=== PATIENT | female | born 1940 | race Caucasian/White ===

== ENCOUNTER 2023-02-09 11:50 | Outpatient (OUT) | payer MEDICARE, OTHER, SELFPAY ==
--- NOTE | 2023-02-09 12:01 | US_ITS ---
The [place] [id number] Patient Name: ADELA PARDO MRN: [id number] date: 1940 Sex: F Assigned Patient Location: LAB Current Patient Location: LAB Accession/Order Number: [id number] Exam Date: 02/09/2023 12:05 Report Date: 02/09/2023 15:36 At the request of: MARCK AMBROCIO Procedure: US venous doppler LE LT EXAMINATION: US venous doppler LE LT HISTORY: Hypertension I10 , left leg swelling, left foot pain COMPARISON: No relevant comparison available. FINDINGS: REGION: Left lower extremity THROMBI: None. COMPRESSIBILITY: Normal compressibility. FLOW: Normal waveform and antegrade flow between 5 and 20 cm/s. OTHER: Atherosclerotic plaque noted within common femoral artery. US/US venous doppler LE LT IMPRESSION: 1. No deep vein thrombus within the left lower extremity. Electronically authenticated by: KAYY KAUR Date: 02/09/2023 15:36
--- NOTE | 2023-02-09 12:01 | XR_ITS ---
The [address] [address] Patient Name: ADELA PARDO MRN: [id number] date: 1940 Sex: F Assigned Patient Location: LAB Current Patient Location: LAB Accession/Order Number: [id number] Exam Date: 02/09/2023 12:30 Report Date: 02/09/2023 13:45 At the request of: MARCK AMBROCIO Procedure: XR foot LT min 3V PROCEDURE: XR foot LT min 3V HISTORY: Hypertension I10 ; lateral left foot pain for 3 weeks; no known injury COMPARISON: None. FINDINGS: BONES:Oblique fracture through mid diaphysis of fourth proximal phalanx with mild sclerosis suggesting early bone healing. No significant dislocation or malalignment. SOFT TISSUES:No visible soft tissue swelling. EFFUSION:None visible. OTHER: Negative. XR/XR foot LT min 3V IMPRESSION: 1. Subacute fracture of fourth proximal phalanx which remains in near normal alignment. Acute injury is felt less likely. Electronically authenticated by: KAYY KAUR Date: 02/09/2023 13:45
== END 2023-02-09 11:51 | disposition home or self-care (01) ==
LOC: LAB 11:52
PROVIDERS: PCP Family Medicine; Visit Provider Family Medicine
DX: R60.0 Localized edema (principal); M79.673 Pain in unspecified foot
CPT/HCPCS: 73630; 93971

== ENCOUNTER 2023-02-17 08:55 | Outpatient (OUT) | payer MEDICARE, OTHER, SELFPAY ==
--- NOTE | 2023-02-17 09:01 | MM_ITS ---
Patient: ADELA PARDO Exam Date: 02/17/2023 : 1940 Gender:F Ordering : DR Kwame Tate . Admission #: [id number] Family : Order #: [id number] CLICK HERE TO VIEW EXAM RADIOLOGY REPORT PROCEDURE: MM TOMOSYNTHESIS SCREENING BI COMPARISON: MG MAMM SCREEN 3D AWAIS CAD, 02/16/2022. MG MAMM SCREEN 3D AWAIS CAD, 02/12/2021. MG MAMM SCREEN AWAIS W CAD, 12/20/2017. MG MAMM SCREEN AWAIS W CAD, 08/19/2016. INDICATIONS: Screening Calculator Name NCI Breast Cancer Risk Assessment Tool 5 Year Breast Cancer Risk 1.30% Lifetime Breast Cancer Risk 1.80% Personal Breast Cancer No Personal Ovarian Cancer No Treatments None Family Cancers Aunt-paternal with breast cancer at age 45; Cousin-paternal with breast cancer at age 36; Cousin-paternal with breast cancer at age 42; Cousin-paternal with breast cancer at age 38; Uncle-maternal with prostate cancer at age ~70; Uncle-paternal with prostate cancer at age ~70. LOCATION: [facility] BREAST COMPOSITION: Heterogeneously dense,which may obscure small masses. FINDINGS: DIAGNOSTIC CATEGORY 2--BENIGN FINDING: RIGHT BREAST: No significant suspicious finding. Scattered benign-appearing calcifications are present. No significant change has occurred. Stable biopsy marker clip. LEFT BREAST: No significant suspicious finding. Scattered benign-appearing calcifications are present. No significant change has occurred. RECOMMENDATIONS: ROUTINE MAMMOGRAM AND CLINICAL EVALUATION IN 12 MONTHS. PLEASE NOTE: A NORMAL MAMMOGRAM DOES NOT EXCLUDE THE POSSIBILITY OF BREAST CANCER. A CLINICALLY SUSPICIOUS PALPABLE LUMP SHOULD BE BIOPSIED. Dictated by: Garcia Peres M.D. on 02/18/2023 at 10:04 Approved by: Garcia Peres M.D. on 02/18/2023 at 10:10
== END 2023-02-17 08:56 | disposition home or self-care (01) ==
LOC: MAMMO 08:55
PROVIDERS: PCP Family Medicine; Visit Provider Family Medicine
DX: Z12.31 Encounter for screening mammogram for malignant neoplasm of breast (principal); Z80.3 Family history of malignant neoplasm of breast; Z80.42 Family history of malignant neoplasm of prostate
CPT/HCPCS: 77063; 77067

== ENCOUNTER 2023-03-25 14:26 | Outpatient (OUT) | payer MEDICARE, OTHER, SELFPAY ==
--- NOTE | 2023-03-25 14:36 | CT_ITS ---
The [address] [address] Patient Name: ADELA PARDO MRN: [id number] date: 1940 Sex: F Assigned Patient Location: LAB Current Patient Location: Accession/Order Number: [id number] Exam Date: 03/25/2023 14:55 Report Date: 03/27/2023 08:49 At the request of: NON-STAFF PHYSICIAN Procedure: CT angio abd aorta runoff CT angio abd aorta runoff, 03/25/2023 2:55 PM EDT INDICATION: Aneurysm Of Unspecified Site I72.9 COMPARISON: There is no appropriate prior study for comparison. Technique: Axial images of 2 millimeters are obtained from the hepatic dome to feet with IV injection with MIP sagittal and coronal reconstructions. 3-D images were obtained with MIP reconstructions. Dose reduction techniques were achieved by using automated exposure control and/or adjustment of mA and/or kV according to patient size and/or use of iterative reconstruction technique. FINDINGS: Lung: The base of lungs are clear. No pleural effusion is noted. Liver and gallbladder: Unremarkable Genitourinary system: Kidneys are unremarkable. There is a hypodense lesion likely a cyst within the left ovary measuring 4 cm. Calcification within the uterus is noted. The adrenal glands, pancreas, and spleen are unremarkable. Aorta: The aorta is aneurysmal with intramural hematoma, occupying approximately 60% of the lumen. The descending aorta measures 5.2 x 5 cm, the proximal abdominal aorta measures 5.6 x 5.1 cm the juxtarenal aorta measures approximately 5.9 x 5.3 cm and the infrarenal abdominal aorta measures 4.4 x 5.4 cm. The aneurysm extends to the aortic bifurcation. The SMA celiac and renal arteries and RASHEL is are patent. There is one renal artery for each kidney. On the right: The common iliac artery measures 8 mm. There is a focal dissection in the distal right external iliac artery with no significant stenosis. The right internal iliac artery is unremarkable. No abnormality of the common and deep femoral artery is noted. There is a large segmental occlusion of the superficial femoral artery from proximal to distal. The right popliteal artery is atherosclerotic but patent. There is two-vessel runoff to ankle through anterior tibialis and peroneal arteries. The posterior tibialis artery is heavily atherosclerotic. On the left: No significant stenosis within the left common, external and internal iliac arteries, common femoral and superficial and deep arteries and popliteal artery is noted. There is three-vessel runoff to the ankle. Lymph node: There is no free fluid or lymph node enlargement by size criteria in the abdomen and pelvis. Bowel: No abnormality of small or large bowel is noted. Bone: There is no suspicious osteolytic or osteoblastic lesion. Lower lumbar spine and SI joint degenerative changes are noted. 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 Two-vessel runoff to the ankle on the right. No significant stenosis on the left side. Large left ovarian cyst. Ultrasound is recommended for further evaluation. Arterial stenosis reference: Mild = <50% stenosis. Moderate = 50-69% stenosis. Severe = >70% stenosis. Electronically authenticated by: ISA SEARS Date: 03/27/2023 08:49
[2023-03-25 14:41] LABS: Estimated GFR (African America >60 (>=60); Estimated GFR (Non-African Ame >60 (>=60)
== END 2023-03-25 14:27 | disposition home or self-care (01) ==
LOC: LAB 14:26
PROVIDERS: PCP Family Medicine
DX: I71.20 Thoracic aortic aneurysm, without rupture, unspecified (principal); I72.9 Aneurysm of unspecified site; N83.202 Unspecified ovarian cyst, left side; I71.40 Abdominal aortic aneurysm, without rupture, unspecified; I70.90 Unspecified atherosclerosis
CPT/HCPCS: 36415; 75635; 82565; Q9967

== ENCOUNTER 2023-03-30 14:10 | Outpatient (OUT) | payer MEDICARE, OTHER, SELFPAY ==
--- NOTE | 2023-03-30 14:13 | US_ITS ---
The [address] [address] Patient Name: ADELA PARDO MRN: [id number] date: 1940 Sex: F Assigned Patient Location: US Current Patient Location: US Accession/Order Number: [id number] Exam Date: 03/30/2023 14:15 Report Date: 03/30/2023 16:00 At the request of: MARCK AMBROCIO Procedure: US pelvis w/ transvaginal EXAMINATION: US pelvis w/ transvaginal HISTORY: Unspecified Ovarian Cyst N83.202 COMPARISON: CTA abdomen with lower extremity runoff 03/25/2023 TECHNIQUE: Transabdominal and/or transvaginal sonographic examination was performed as indicated by examination type. FINDINGS: UTERUS: Heterogeneous with multiple small shadowing hyperechoic structures likely calcifications or calcifying small leiomyomas. Uterus size: 5.2 x 2.6 x 3.3 cm ENDOMETRIUM: Could not be defined. RIGHT OVARY: Not seen. LEFT OVARY: Contains a 5.2 x 4.6 x 4.3 cm thin-walled fluid-filled thin-walled cystic structure. normal resistive index; 0.5. Ovary size: 5.6 x 4.3 x 4.9 cm CUL-DE-SAC: Unremarkable. No significant free fluid. BLADDER: Unremarkable. OTHER: None. US/US pelvis w/ transvaginal IMPRESSION: 1. Large 5.6 cm cyst arising from left ovary; unexpected in a patient of this age, but overall benign-appearing. Consider follow-up ultrasound evaluation in 4 and 6 weeks to evaluate for possible regression. Electronically authenticated by: KAYY KAUR Date: 03/30/2023 16:00
== END 2023-03-30 14:11 | disposition home or self-care (01) ==
LOC: US 14:10
PROVIDERS: PCP Family Medicine; Visit Provider Family Medicine
DX: N83.202 Unspecified ovarian cyst, left side (principal)
CPT/HCPCS: 76830; 76856

== ENCOUNTER 2023-04-20 14:47 | Outpatient (OUT) | payer MEDICARE, OTHER, SELFPAY ==
[2023-04-20 15:50] LABS: Lactate Dehydrogenase 158 U/L (81-234)
[2023-04-21 04:07] LABS: AFP, Serum, Tumor Marker <1.8 ng/mL (0.0-8.7); CEA 4.6 ng/mL (0.0-4.7); Cancer Antigen (CA) 125 16.7 U/mL (0.0-38.1); HCG Tumor Marker <1 mIU/mL (.)
== END 2023-04-20 14:48 | disposition home or self-care (01) ==
LOC: LAB 14:48
PROVIDERS: PCP Family Medicine; Visit Provider Obstetrics & Gynecology
DX: N83.202 Unspecified ovarian cyst, left side (principal)
CPT/HCPCS: 36415; 82105; 82378; 83615; 84702; 86304

== ENCOUNTER 2023-06-01 14:16 | Outpatient (OUT) | payer MEDICARE, OTHER, SELFPAY ==
--- NOTE | 2023-06-01 14:19 | US_ITS ---
[address] [address] Patient Name: ADELA PARDO MRN: [id number] date: 1940 Sex: F Assigned Patient Location: US Current Patient Location: US Accession/Order Number: [id number] Exam Date: 06/01/2023 14:20 Report Date: 06/01/2023 15:13 At the request of: FORREST SALAZAR Procedure: US pelvis w/ transvaginal EXAMINATION: US pelvis w/ transvaginal HISTORY: left ovarian cyst COMPARISON: Ultrasound pelvis 03/30/2023 TECHNIQUE: Transabdominal and/or transvaginal sonographic examination was performed as indicated by examination type. FINDINGS: UTERUS: Heterogeneous and contains multiple calcifications. Uterus size: 6.6 x 2.5 x 4.1 cm. ENDOMETRIUM: Normal homogeneous appearance. Endometrial thickness: 4 mm RIGHT OVARY: Normal size and appearance. Duplex Doppler demonstrates normal waveform and flow; resistive index 0.3. Ovary size: 2.0 x 1.0 x 1.67 m LEFT OVARY: Contains a 5.1 cm anechoic, simple appearing cyst. Duplex Doppler demonstrates normal waveform and flow; resistive index 0.7. Ovary size: 5.8 x 5.5 x 5.0 cm CUL-DE-SAC: Unremarkable. No significant free fluid. BLADDER: Unremarkable. OTHER: None. US/US pelvis w/ transvaginal IMPRESSION: 1. Persistence large left ovarian cyst 5.1 cm. While the cyst is simple and without overtly suspicious characteristics, it is not expected in a patient of this age. Electronically authenticated by: KAYY KAUR Date: 06/01/2023 15:13
--- OUTSIDE RECORDS SUMMARY | 2023-06-01 14:19 | XMS_ITS | CCD ---
Author Name Unknown Address [address] [facility] [address] [place] [address] Organization [facility] Care Team Providers Care Pan Pusher Name Role Phone PHYSICIAN, DEFAULT Unavailable Unavailable PHYSICIAN, DEFAULT Unavailable Unavailable MARCK TATE Unavailable Unavailable HOY ., DR ACHARYA Admitting Unavailable HOY ., DR ACHARYA Attending Unavailable HOY ., DR ACHARYA Primary Care Unavailable HOY ., DR ACHARYA Consulting Unavailable MOUNT OLIVE, DR SANDOVAL Ferguson Consulting Unavailable HOY ., DR ACHARYA Admitting Unavailable HOY ., DR ACHARYA Attending Unavailable HOY ., DR ACHARYA Primary Care Unavailable HOY ., DR ACHARYA Consulting Unavailable ZIEBER, DR KAYY Macias Consulting Unavailable HOY ., DR ACHARYA Admitting Unavailable HOY ., DR ACHARYA Attending Unavailable HOY ., DR ACHARYA Primary Care Unavailable HOY ., DR ACHARYA Consulting Unavailable HOY ., DR ACHARYA Admitting Unavailable HOY ., DR ACHARYA Attending Unavailable HOY ., DR ACHARYA Primary Care Unavailable HOY ., DR ACHARYA Consulting Unavailable HOY ., DR ACHARYA Admitting Unavailable HOY ., DR ACHARYA Attending Unavailable HOY ., DR ACHARYA Primary Care Unavailable HOY ., DR ACHARYA Consulting Unavailable Marck Tate Primary Care Physician Marck Tate MD Unavailable JENA HICKS Referring Unavailable JENA HICKS Attending Unavailable Sha Vallejo Attending Unavaila ble NONE, XXXX Referring Unavailable Jameel, Mohamed FManish Attending Unavailable Jameel, Mohamed FManish Admitting Unavailable Marck Tate Referring Unavailable Sha Vallejo Attending Unavaila ble NONE, XXXX Referring Unavailable Jameel, Mohamed F. Attending Unavailable Jameel, Mohamed F. Admitting Unavailable Jameel, Mohamed F. Referring Unavailable Jameel, Mohamed F. Attending Unavailable Jameel, Mohamed F. Admitting Unavailable NONE, XXXX Referring Unavailable Sha Vallejo Attending Unavaila ble Sha Vallejo Admitting Unavaila ble NONE, XXXX Referring Unavailable FORREST SALAZAR Attending Unavailable FORREST SALAZAR Attending Unavailable Allergies Allergy Classification Reported Allergen(s) Allergy Type Date of Onset Reaction(s) Facility (1 source) No Known Medication Allergies; Translations: [No Known Medication Allergies] Propensity to adverse reactions (disorder) [facility] Repository Medications Current Medications Medication Drug Class(es) Dates Sig (Normalized) Sig (Original) aspirin 81 mg delayed release oral tablet (3 sources) Platelet Aggregation Inhibitor, Nonsteroidal Anti-inflammatory Drug Start: 05-12-2023 aspirin 81 mg Oral EC Tab Refills(s) 0 Start Date: 05/12/23 Status: Ordered take 81 mg by mouth once daily B SUSANNA ASPIRIN ORAL Take 81 mg by mouth once daily. 0 Active Comment on above: Take 81 mg by mouth once daily. cetirizine hydrochloride 10 mg oral tablet (7 sources) Histamine-1 Receptor Antagonist Start: 2022 take 1 tablet by mouth once daily cetirizine 10 mg Tab 10 mg = 1 tab(s), Oral, Daily, # 30 tab(s), Refills(s) 0 Start Date: 09/06/22 Status: Ordered Comment on above: Take 1 tablet by caty th every afternoon. glimepiride 2 mg oral tablet (5 sources) Sulfonylurea Start: 2022 glimepiride 2 mg Tab Refills(s) 0 Start Date: 01/20/23 Status: Ordered Comment on above: Take 2 mg by mouth o nce daily. iv contrast (will be provided with radiology test) (1 source) Start: 2022 End: 2022 inject 1 dose intravenously once iv contrast (will be provided with radiology test) CTA CHEST (NONGATED) ABD/PEL WO/W IVCON - No IV access, insert saline lock prior to the sedation, infusion, injection for imaging exam. Discontinue saline lock post exam. If Pt. has a central line or IVAD, may access for administration according to line specific nursing protocol. Once exam is complete flush line and de-access according to line specific nursing protocol in the CT contrast administration guidelines link. 1 Each 0 04/26/2023 04/27/2023 Active Comment on above: CTA CHEST (NONGATED) ABD/PEL WO/W IVCON - No IV access, insert saline lock prior to the sedation, infusion, injection for imaging exam. Discontinue saline lock post exam. If Pt. has a central line or IVAD, may access for administration according to line specific nursing protocol. Once exam is complete flush line and de-access according to line specific nursing protocol in the CT contrast administration guidelines link. metFORMIN hydrochloride 500 mg oral tablet (5 sources) Biguanide Start: 2022 metformin 500 mg Tab Refills(s) 0 Start Date: 01/20/23 Status: Ordered Comment on above: Take 1 tablet by caty th every 12 hours. Completed/Discontinued Medications Medication Drug Class(es) Dates Sig (Normalized) Sig (Original) amLODIPine 5 mg oral tablet (5 sources) Dihydropyridine Calcium Channel Yessica Start: 03-24-2023 take 1 tablet by mouth once amLODIPine (NORVASC) 5 mg tablet Take 1 tablet by mouth every afternoon. 0 03/24/2023 Active Start: 01-20-2023 amLODIPine 5 m g Tab Refills(s) 0 Start Date: 01/20/23 Status: Ordered Comment on above: Take 1 tablet by caty th every afternoon. ascorbic acid 500 mg chewable tablet (2 sources) Vitamin C take 500 mg by mouth once daily Ascorbic Acid (VITAMIN C) 500 mg chew Take 500 mg by mouth once daily. 0 Active Comment on above: Take 500 mg by mouth once daily. calcium carbonate 500 mg oral tablet (2 sources) take 500 mg by mouth once daily calcium carbonate (CALCIUM 500 ORAL) Take 500 mg by mouth once daily. 0 Active Comment on above: Take 500 mg by mouth once daily. cholecalciferol 0.025 mg oral capsule (2 sources) Vitamin D Cholecalciferol, Vitamin D3, (VITAMIN D) 25 mcg (1,000 unit) cap Take 1,000 Units by mouth once daily. 0 Active Comment on above: Take 1,000 Units by mouth once daily. ezetimibe 10 mg oral tablet (2 sources) Dietary Cholesterol Absorption Inhibitor Start: 04-10-20 take 1 tablet by mouth once ezetimibe (ZETIA) 10 mg tablet Take 1 tablet by mouth every afternoon. 0 04/10/2023 Active Comment on above: Take 1 tablet by caty th every afternoon. 60 actuat fluticasone propionate 0.1 mg/actuat / salmeterol 0.05 mg/actuat dry powder inhaler (5 sources) Corticosteroid, beta2-Adrenergic Agonist Start: 04-06-20 take 1 puff(s) by inhalation twice daily WIXELA INHUB 100-50 mcg/dose inhaler Inhale 1 Puff as instructed two times a day. 0 04/06/2023 Active Start: 01-20-2023 Wixela Inhub 1 00 mcg-50 mcg inhalation powder Refill(s) 0 Start Date: 01/20/23 Status: Ordered Comment on above: Inhale 1 Puff as ins tructed two times a day. lisinopril 40 mg oral tablet (7 sources) Angiotensin Converting Enzyme Inhibitor Start: 03-17-2023 take 1 tablet by mouth once lisinopril (ZESTRIL) 40 mg tablet Take 1 tablet by mouth every afternoon. 0 03/17/2023 Active Start: 09-06-2022 take 1 tablet by caty th once daily lisinopril 10 mg Tab 10 mg = 1 tab(s), Oral, Daily, # 30 tab(s), Refills(s) 0 Start Date: 09/06/22 Status: Ordered Comment on above: Take 1 tablet by caty th every afternoon. melatonin 10 mg oral tablet (2 sources) take 1 tablet by mouth once daily at bedtime melatonin 10 mg tab Take 10 mg by mouth daily at bedtime. 0 Active Comment on above: Take 10 mg by mouth daily at bedtime. multivitamin (DAILY MULTI-VITAMIN) tablet (2 sources) take 1 tablet by mouth once daily multivitamin (DAILY MULTI-VITAMIN) tablet Take 1 tablet by mouth once daily. 0 Active Comment on above: Take 1 tablet by caty th once daily. omeprazole 20 mg delayed release oral capsule (5 sources) Proton Pump Inhibitor Start: 01-21-20 take 1 capsule by mouth once daily omeprazole (PRILOSEC) 20 mg capsule Take 20 mg by mouth once daily. 0 04/28/2023 Active Comment on above: Take 20 mg by mouth once daily. pramipexole dihydrochloride 1 mg oral tablet (2 sources) Nonergot Dopamine Agonist Start: 11-13-20 23 take 1 tablet by mouth once pramipexole (MIRAPEX) 1 mg tablet Take 1 tablet by mouth every afternoon. 0 04/04/2023 Active Comment on above: Take 1 tablet by caty th every afternoon. Problems Active Problems Problem Classification Problem Date Documented Da te Episodic/Chronic Aortic; peripheral; and visceral artery aneurysms (4 sources) Thoracic aortic aneurysm without rupture; Translations: [Thoracic aortic aneurysm, without rupture, unspecified] Onset: 09-06-2022 Chronic Chronic obstructive pulmonary disease and bronchiectasis (5 sources) Chronic obstructive pulmonary disease, unspecified; Translations: [COPD UNSPECIFIED] Onset: 07-18-2022 Chronic Congestive heart failure; nonhypertensive (1 source) Unspecified diastolic (congestive) heart failure; Translations: [UNSPECIFIED DIASTOLIC HEART FAILURE] Onset: 07-18-2022 Chronic Coronary atherosclerosis and other heart disease (1 source) Atherosclerotic heart disease of [place] coronary artery without angina pectoris; Translations: [ASHD [place] W/O ANGINA PECTORIS] Onset: 07-18-2022 Chronic Diabetes mellitus with complications (4 sources) Type 2 diabetes mellitus with hyperglycemia; Translations: [TYPE 2 DM W/HYPERGLYCEMIA] Onset: 07-14-2022 Chronic Disorders of lipid metabolism (1 source) Hyperlipidemia, unspecified; Translations: [HYPERLIPIDEMIA UNSPECIFIED] Onset: 07-18-2022 Chronic Hypertension with complications and secondary hypertension (1 source) Hypertensive heart disease with heart failure; Translations: [HTN HEART DISEASE W/HEART FAIL] Onset: 07-18-2022 Chronic Nonspecific chest pain (2 sources) Chest pain; Translations: [Chest pain, unspecified] Onset: 05-03-2023 04-26-2023 Episodic Nutritional deficiencies (1 source) Vitamin D deficiency, unspecified; Translations: [VITAMIN D DEFICIENCY UNSPECIFIED] Onset: 07-18-2022 Chronic Occlusion or stenosis of precerebral arteries (1 source) Bilateral stenosis of carotid arteries; Translations: [Occlusion and stenosis of bilateral carotid arteries] 05-04-2023 Chronic Other circulatory disease (1 source) Vascular disorder; Translations: [Other disorders of arteries, arterioles and capillaries in diseases classified elsewhere] 05-04-2023 Chronic Other gastrointestinal disorders (1 source) Diarrhea, unspecified; Translations: [DIARRHEA UNSPECIFIED] Onset: 07-30-2022 Episodic Other screening for suspected conditions (not mental disorders or infectious disease) (9 sources) Encounter for screening for malignant neoplasm of rectum; Translations: [Encounter for screening mammogram for malignant neoplasm of breast] Onset: 02-16-2022 Episodic Substance-related disorders (1 source) Nicotine dependence, cigarettes, uncomplicated; Translations: [NICOTINE DEPEND CIGARETTES UNCOMP] Onset: 08-09-2022 Chronic Unclassified (1 source) COUGH, UNSPECIFIED; Translations: [COUGH, UNSPECIFIED] Onset: 08-09-2022 Past or Other Problems Problem Classification Problem Date Documented Da te Episodic/Chronic Diabetes mellitus without complication (1 source) Other abnormal glucose; Translations: [OTHER ABNORMAL GLUCOSE] Onset: 05-06-2022 Episodic Malaise and fatigue (4 sources) Other fatigue; Translations: [OTHER FATIGUE] Onset: 04-30-2022 Episodic Residual codes; unclassified (1 source) Family history of malignant neoplasm of breast; Translations: [FAMILY HX MALIG NEOPLASM OF BREAST] Onset: 02-18-2022 Episodic Residual codes; unclassified (1 source) Family history of malignant neoplasm of other organs or systems; Translations: [FAM HX MALIG NEOPLASM OTH ORGN/SYS] Onset: 02-18-2022 Episodic Results Test Name Value Interpretation Reference Range Facility Heart and Vascular Office/Cl inic Noteon 05-29-2023 Heart and Vascular Office/Clinic Note Chief Complaint 6 month f/y TAAA History of Present Illness Beth Starkey is an 83-year-old female with a history of CAD, remote PCI, hypertension, hyperlipidemia, and abdominal aortic aneurysm, here for routine follow-up. The patient reports that she is doing well. She has reached out to the [facility] and has been assigned a doctor for her case. She has had one consultation with Dr. Payan(?) who did not recommend surgery. Instead, he informed her about the potential risks, including the possibility of a tracheotomy, paralysis, and kidney issues that might necessitate dialysis. He also inquired about her desired quality of life. The patient believes that she will undergo bypass surgery and continue to live until her natural end. She reports that her aorta was previously measured at 5.5 cm during her last visit. However, during her recent visit to the [facility], she was informed that her aorta measured 5.3 cm. She has expressed no fear, indicating that she does not experience any pain. It was determined that an ovarian cyst is present, and further monitoring will be conducted to ensure its stability. She denies chest pain or dyspnea. She has been taking aspirin 81 mg. She denies that her right leg bothers her when she walks. She reports experiencing symptoms of restless leg syndrome, with a particular sensation in her left leg causing discomfort. She has been advised to administer medication to manage these symptoms. Review of Systems Constitutional: no fever, no sweats, no weakness Skin: no rash, no lesions, no bruising/petechiae ENMT: no sore throat, no congestion, no hoarseness Respiratory: no shortness of breath, no cough, no orthopnea, no wheezing Cardiovascular: no chest pain, no palpitations, no edema Gastrointestinal: no nausea, no vomiting, no diarrhea, no GI bleeding Genitourinary: no anuria/oliguria no hematuria Musculoskeletal: no back pain, no trauma Neurologic: no headache, no dizziness, no numbness, no weakness Psychiatric: no sleeping problems, no irritability, no anxiety/depression. Heme/Lymph: no bleeding tendency, no bruising tendency Allergy/Immunologic: no recurrent infections, no impaired immunity Additional ROS info: Except as noted in the above Review of Systems and in the History of Present Illness all other systems have been reviewed and are negative or noncontributory Physical Exam Vitals & Measurements HR: 94(Peripheral) BP: 130/72 SpO2: 90% HT: 60 in HT: 152 cm WT: 66.5 kg WT: 146.3 lb BMI: 28.78 General: alert, no acute distress Skin: warm, dry intact Head: atraumatic, normocephalic Neck: trachea midline, no JVD, no bruit Eye: normal conjunctiva, sclera clear ENMT: oral mucosa moist Cardiovascular: regular rate and rhythm, no murmur, normal peripheral perfusion Respiratory: lungs CTA, respirations non labored Chest wall: no deformity. Gastrointestinal: soft, non-distended, no tenderness, no guarding. Back: no tenderness, normal ROM, normal alignment. Extremities: no edema, no deformity, no trauma Neurological: oriented x 4, LOC appropriate for age, sensation equal & normal bilaterally, speech normal Psychiatric: cooperative, affect appropriate for age, normal judgement, normal psychiatric thoughts. Assessment/Plan Assessment/Plan An 83-year-old female with a history of CAD, remote PCI, hypertension, hyperlipidemia, and abdominal aortic aneurysm. She is here for a routine follow-up. She had an evaluation at [facility] for her aneurysm. She also got a CT angiogram with runoff. This showed the aneurysm is 5.9 cm by testing at [place], but measured 5.3 cm. As per patient at [facility], she has an occluded right SFA, and the mesenteric arteries were patent. She does not have any symptoms. 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 We will keep her blood pressure under control and monitor her symptoms. Follow up in 6 months. ATTESTATION: Portions of this record may have been created with voice recognition artificial intelligence software, specifically [facility], [email or web address] and or [employer]. Substitutions may have occurred with voice recognition and artificial intelligence software. Documentation services were performed after patient or guardian consented to allow [employer] to record this visit. SANTOS practice support specialist and provider reviewed before signing. SANTOS: Annmarie Mccray Follow-up No qualifying data available Problem List/Past Medical History Ongoing No qualifying data Historical No qualifying data Medications amLODIPine 5 mg Tab aspirin 81 mg Oral EC Tab cetirizine 10 mg Tab, 10 mg= 1 tab(s), Oral, Daily glimepiride 2 mg Tab lisinopril 10 mg Tab, 10 mg= 1 tab(s), Oral, Daily metformin 500 mg Tab omeprazole 20 mg Cap-DR, 20 mg= 1 cap(s) Wixela Inhub 100 mcg-50 mcg inhalation powder Allergies No Known Medicat (more content not included)... Normal [facility] Comment on above: Result Comment: Elec tronically Signed By: Genevieve CURRIE, Sha Bustos\.br\Date and Time Signed: 05/29/23 20:33 EST\.br\Electronically Co-Signed By: Annmarie Mccray.br\Date and Time Co-Signed: 05/12/23 12:52 EST Physician Orderon 05-13-2023 Physician Order [id number] [id number] Normal [facility] CNOVon 05-03-2023 CNOV Office Visit (VASSMN) BETH STARKEY ([id number]) 1940 F Date Time Provider Department 05/03/23 12:00 PM JENA HICKS During your visit today, we recorded the following information about you: Temperature Pulse Respiration Blood pressure 98.3 degrees 86/minute 16/minute 103/59 Weight Height 65.8 kg 1.524 m Jena Hicks MD 05/03/2023 3:31 PM Signed [facility] [place] DEPARTMENT OF VASCULAR SURGERY OUTPATIENT VISIT DATE May 03, 2023 OUTPATIENT VISIT TYPE CONSULTATION SERVICE DATE: 05/03/2023 SERVICE TIME: 12:42 PM PRIMARY CARE PHYSICIAN: No primary care provider on file. REFERRING PROVIDER: MARCK TATE MD Consult requested for an opinion regarding the evaluation and treatment of the above. My final impression and recommendations will be communicated back to the requesting physician by way of the shared medical record or letter via US mail. CHIEF COMPLAINT: Thoracoabdominal Aortic aneurysm HISTORY OF PRESENT ILLNESS: Vascular consultation at the request of Dr. Md Marck Tate. A copy of this consultation note will be provided to the requesting physician by way of shared Medical record or letter to requesting physician via US mail. Ms. Starkey is a 83 year old female who is seen today for evaluation and management of an abdominal aortic aneurysm. Patient patient states that she is still currently smoking 1 to 1/2 pack a day this is likely up from when she started smoking at the age of 17. She admits to shortness of breath when she walks quickly but states that she is able to walk slowly without shortness of breath. She is unable to walk 2 flights of stairs without shortness of breath. Patient states that at an evaluation in October 2022 she was told that she had an aneurysm and with recent CAT scan imaging the aneurysm has grown. She is worried as her brother recently of a ruptured aneurysm. She denies any fevers, weight loss, or night sweats. PAST MEDICAL HISTORY Diagnosis Date AAA (abdominal aortic aneurysm) (HCC) Diabetes mellitus (HCC) HLD (hyperlipidemia) HTN (hypertension) Ovarian cyst PAST SURGICAL HISTORY Procedure Laterality Date CORONARY STENT INITIAL 1997 2x REMOVAL GALLBLADDER SOCIAL HISTORY: Social History Tobacco Use Smoking status: Every Day Packs/day: 1.50 Years: 66.00 Additional pack years: 0.00 Total pack years: 99.00 Types: Cigarettes Start date: 05/23/1955 Smokeless tobacco: Never Substance Use Topics Alcohol use: Yes Comment: football season Drug use: Never FAMILY HISTORY Problem Relation Age of Onset Aneurysm Brother aorta ruptured MEDICATIONS: glimepiride (AMARYL) 2 mg tablet Take 2 mg by mouth once daily. lisinopril (ZESTRIL) 40 mg tablet Take 1 tablet by mouth every afternoon. ezetimibe (ZETIA) 10 mg tablet Take 1 tablet by mouth every afternoon. amLODIPine (NORVASC) 5 mg tablet Take 1 tablet by mouth every afternoon. cetirizine (ZYRTEC) 10 mg tablet Take 1 tablet by mouth every afternoon. pramipexole (MIRAPEX) 1 mg tablet Take 1 tablet by mouth every afternoon. omeprazole (PRILOSEC) 20 mg capsule Take 20 mg by mouth once daily. metFORMIN (GLUCOPHAGE) 500 mg tablet Take 1 tablet by mouth every 12 hours. WIXELA INHUB 100-50 mcg/dose inhaler Inhale 1 Puff as instructed two times a day. multivitamin (DAILY MULTI-VITAMIN) tablet Take 1 tablet by mouth once daily. melatonin 10 mg tab Take 10 mg by mouth daily at bedtime. calcium carbonate (CALCIUM 500 ORAL) Take 500 mg by mouth once daily. Cholecalciferol, Vitamin D3, (VITAMIN D) 25 mcg (1,000 unit) cap Take 1,000 Units by mouth once daily. Ascorbic Acid (VITAMIN C) 500 mg chew Take 500 mg by mouth once daily. BABY ASPIRIN ORAL Take 81 mg by mouth once daily. ALLERGIES: ALLERGIES No Known Allergies REVIEW OF SYSTEM: Constitutional: No weight loss, malaise or fevers. HEENT: Negative for frequent or significant headaches, No changes in hearing or vision, no nose bleeds or other nasal problems Respiratory: Negative for cough, wheezing, or shortness of breath. Positive for shortness of breath on exertion Cardiovascular: Negative for chest pain, leg swelling or palpitations, claudication Gatrointestinal: Negative for abdominal discomfort, blood in stools or black stools or change in bowel habits Genitourinary: No history of dysuria, frequency, or incontinence and No difficulty urination, nocturia >1 times per night or hematuria Musculoskeletal: Negative for joint pain or swelling, back pain or muscle pain Endocrine: Negative for cold or heat intolerance, polyuria, polydipsia and goiter Hematology/Lymphatic : Negative for prolonged bleeding, bruising easily or swollen nodes Neurologic: No history or headaches, syncope, paralysis, seizures or tremors Integumentary: Negative for lesions, rash, and itching. PHYSICAL E (more content not included)... 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 Evaluation for further treatment options. There is request to define thoracic and aortic anatomy TECHNIQUE: SCANNER: Multi-detector scanner PROTOCOL: Prospectively triggered helical high-pitch acquisitions ( triggered Flash-mode ) was performed following the intravenous administration of contrast material in arterial and venous phases Scan Range: thoracic inlet through the ischial tuberosities CT Dose-Length Product (DLP): 450 mGy*cm CT Dose Reduction Employed: Automated exposure control(AEC) and iterative recon CONTRAST: IV administration of 100 ml Omnipaque 350 Scan acquisition: uncomplicated For optimization of anatomic evaluation, advanced 3-D off-line postprocessing was performed on a dedicated workstation by the interpreting physician. STUDY LIMITATIONS: None. RESULT: LINES, TUBES and DEVICES: None CHEST: Chest wall anatomy: unremarkable. LUNGS: Bilateral emphysema. Stable 5 mm nodule in the right middle lobe (image 150); Calcified granuloma noted in the right lower lobe. MEDIASTINUM: Calcified right hilar and subcarinal lymph nodes noted PERICARDIUM: unremarkable CENTRAL PULMONARY ARTERY: normal dimensions, assessment is limited due to limited contrast enhancement CARDIAC CHAMBERS: LEFT VENTRICLE: normal size RIGHT VENTRICLE: normal size Left atrium: normal size. POOL: normal Right atrium: normal size Interatrial septal bulge towards right atrium is seen with likely flow across the septum, suggestive of ASD - ECHO correlation suggested. CENTRAL VENOUS and PULMONARY VENOUS RETURN: normal Coronary Sinus: normal size MITRAL and TRICUSPID VALVE: Assessment is limited in the current study No leaflet calcification. No annular calcification PULMONIC VALVE: Assessment is limited in the current study. No leaflet calcification CORONARY ANATOMY: Normal origin of the coronary arteries. Moderate atherosclerotic changes of the coronary arteries. However, the current study is not optimized for coronary assessment. AORTIC VALVE: appears trileaflet. Mild leaflet calcification AORTA: Size: Aortic root, ascending thoracic aorta and aortic arch are normal in caliber. Beginning from the mid descending thoracic aorta, there is fusiform aneurysmal dilation of the rest of the descending thoracic aorta and abdominal aorta extending into the left common iliac artery with large amount of mural thrombus and calcification Pathology: Aneurysm. STJ: maintained. Wall Changes: scattered predominantly calcified wall changes. Arch Branch Vessels: . Common origin of bilateral common carotid arteries, followed by origin of the left subclavian artery is seen. 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 No ostial dilation/diverticulu m of Kofiorellaerell. Visceral Branch Vessels: patent with likely moderate stenosis at the origins of celiac, mesenteric and renal arteries Iliac Arteries: Aortic aneurysm extends into aneurysmal dilation of the proximal left common iliac artery. Right common iliac, bilateral internal and external iliac arteries are normal in caliber. Moderate stenosis is suspected in the distal right external iliac artery AORTIC DIMENSIONS: AORTIC ROOT: 3.0 cm mid ASCENDING THORACIC AORTA: 3.0 cm mid AORTIC ARCH: 2.7 cm proximal DESCENDING THORACIC AORTA: 2.9 cm mid DESCENDING THORACIC AORTA: 4.4 x 4.1 cm distal DESCENDING THORACIC AORTA: 5.3 cm JUXTARENAL ABDOMINAL AORTA (level of SMA): 5.6 x 5.4 cm mid INFRARENAL ABDOMINAL AORTA: 4.1 cm Diameter Left and Right Common Iliac Arteries outer vessel diameter: 1.3 / 3.3 cm respectively ABDOMEN Gallbladder: evidence of prior cholecystectomy Liver: unremarkable Spleen: unremarkable Adrenal glands: unremarkable Pancreas: unremarkable Kidneys: cystic lesions Bowel: appears unremarkable within limitations of non-GI contrast examination PELVIS: scattered phleboliths Bladder: unremarkable 5.6 cm left adnexal cystic lesion noted - stable BONES: degenerative changes of the spine Vest Busheler (topogram) images: No additional findings. IMPRESSION: * Aortic root, ascending thoracic aorta, aortic arch and proximal descending thoracic aorta are normal in caliber. * Fusiform aneurysmal dilation of the mid to distal descending thoracic aorta and abdominal aorta extending into the left common iliac artery with large amount of mural thrombus and calcification (stable compared to prior scans) * 5.6 cm left adnexal cystic lesion noted. Acuity: Actionable Findings: Female reproduc (more content not included)... 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 Evaluation for further treatment options. There is request to define thoracic and aortic anatomy TECHNIQUE: SCANNER: Multi-detector scanner PROTOCOL: Prospectively triggered helical high-pitch acquisitions ( triggered Flash-mode ) was performed following the intravenous administration of contrast material in arterial and venous phases Scan Range: thoracic inlet through the ischial tuberosities CT Dose-Length Product (DLP): 450 mGy*cm CT Dose Reduction Employed: Automated exposure control(AEC) and iterative recon CONTRAST: IV administration of 100 ml Omnipaque 350 Scan acquisition: uncomplicated For optimization of anatomic evaluation, advanced 3-D off-line postprocessing was performed on a dedicated workstation by the interpreting physician. STUDY LIMITATIONS: None. RESULT: LINES, TUBES and DEVICES: None CHEST: Chest wall anatomy: unremarkable. LUNGS: Bilateral emphysema. Stable 5 mm nodule in the right middle lobe (image 150); Calcified granuloma noted in the right lower lobe. MEDIASTINUM: Calcified right hilar and subcarinal lymph nodes noted PERICARDIUM: unremarkable CENTRAL PULMONARY ARTERY: normal dimensions, assessment is limited due to limited contrast enhancement CARDIAC CHAMBERS: LEFT VENTRICLE: normal size RIGHT VENTRICLE: normal size Left atrium: normal size. POOL: normal Right atrium: normal size Interatrial septal bulge towards right atrium is seen with likely flow across the septum, suggestive of ASD - ECHO correlation suggested. CENTRAL VENOUS and PULMONARY VENOUS RETURN: normal Coronary Sinus: normal size MITRAL and TRICUSPID VALVE: Assessment is limited in the current study No leaflet calcification. No annular calcification PULMONIC VALVE: Assessment is limited in the current study. No leaflet calcification CORONARY ANATOMY: Normal origin of the coronary arteries. Moderate atherosclerotic changes of the coronary arteries. However, the current study is not optimized for coronary assessment. AORTIC VALVE: appears trileaflet. Mild leaflet calcification AORTA: Size: Aortic root, ascending thoracic aorta and aortic arch are normal in caliber. Beginning from the mid descending thoracic aorta, there is fusiform aneurysmal dilation of the rest of the descending thoracic aorta and abdominal aorta extending into the left common iliac artery with large amount of mural thrombus and calcification Pathology: Aneurysm. STJ: maintained. Wall Changes: scattered predominantly calcified wall changes. Arch Branch Vessels: . Common origin of bilateral common carotid arteries, followed by origin of the left subclavian artery is seen. 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 No ostial dilation/diverticulu m of Kommerell. Visceral Branch Vessels: patent with likely moderate stenosis at the origins of celiac, mesenteric and renal arteries Iliac Arteries: Aortic aneurysm extends into aneurysmal dilation of the proximal left common iliac artery. Right common iliac, bilateral internal and external iliac arteries are normal in caliber. Moderate stenosis is suspected in the distal right external iliac artery AORTIC DIMENSIONS: AORTIC ROOT: 3.0 cm mid ASCENDING THORACIC AORTA: 3.0 cm mid AORTIC ARCH: 2.7 cm proximal DESCENDING THORACIC AORTA: 2.9 cm mid DESCENDING THORACIC AORTA: 4.4 x 4.1 cm distal DESCENDING THORACIC AORTA: 5.3 cm JUXTARENAL ABDOMINAL AORTA (level of SMA): 5.6 x 5.4 cm mid INFRARENAL ABDOMINAL AORTA: 4.1 cm Diameter Left and Right Common Iliac Arteries outer vessel diameter: 1.3 / 3.3 cm respectively ABDOMEN Gallbladder: evidence of prior cholecystectomy Liver: unremarkable Spleen: unremarkable Adrenal glands: unremarkable Pancreas: unremarkable Kidneys: cystic lesions Bowel: appears unremarkable within limitations of non-GI contrast examination PELVIS: scattered phleboliths Bladder: unremarkable 5.6 cm left adnexal cystic lesion noted - stable BONES: degenerative changes of the spine Vest Busheler (topogram) images: No additional findings. IMPRESSION: * Aortic root, ascending thoracic aorta, aortic arch and proximal descending thoracic aorta are normal in caliber. * Fusiform aneurysmal dilation of the mid to distal descending thoracic aorta and abdominal aorta extending into the left common iliac artery with large amount of mural thrombus and calcification (stable compared to prior scans) * 5.6 cm left adnexal cystic lesion noted. Acuity: Actionable Findings: Female (more content not included)... Invalid Interpretation Code [facility] HISTORY PHYSICALon HISTORY PHYSICAL HNO ID: [id number] Author: Jena Hicks MD Service: ? Author Type: Physician Type: HANDP Filed: 05/03/2023 3:31 PM Note Text: Heart , Vascular and Thoracic [place] DEPARTMENT OF VASCULAR SURGERY OUTPATIENT VISIT DATE May 03, 2023 OUTPATIENT VISIT TYPE CONSULTATION SERVICE DATE: 05/03/2023 SERVICE TIME: 12:42 PM PRIMARY CARE PHYSICIAN: No primary care provider on file. REFERRING PROVIDER: MARCK TATE MD Consult requested for an opinion regarding the evaluation and treatment of the above. My final impression and recommendations will be communicated back to the requesting physician by way of the shared medical record or letter via [place] mail. CHIEF COMPLAINT: Thoracoabdominal Aortic aneurysm HISTORY OF PRESENT ILLNESS: Vascular consultation at the request of Dr. Md Marck Tate. A copy of this consultation note will be provided to the requesting physician by way of shared Medical record or letter to requesting physician via [place] mail. Ms. Starkey is a 83 year old female who is seen today for evaluation and management of an abdominal aortic aneurysm. Patient patient states that she is still currently smoking 1 to 1/2 pack a day this is likely up from when she started smoking at the age of 17. She admits to shortness of breath when she walks quickly but states that she is able to walk slowly without shortness of breath. She is unable to walk 2 flights of stairs without shortness of breath. Patient states that at an evaluation in October 2022 she was told that she had an aneurysm and with recent CAT scan imaging the aneurysm has grown. She is worried as her brother recently of a ruptured aneurysm. She denies any fevers, weight loss, or night sweats. PAST MEDICAL HISTORY Diagnosis Date AAA (abdominal aortic aneurysm) (HCC) Diabetes mellitus (HCC) HLD (hyperlipidemia) HTN (hypertension) Ovarian cyst PAST SURGICAL HISTORY Procedure Laterality Date CORONARY STENT INITIAL 1997 2x REMOVAL GALLBLADDER SOCIAL HISTORY: Social History Tobacco Use Smoking status: Every Day Packs/day: 1.50 Years: 66.00 Additional pack years: 0.00 Total pack years: 99.00 Types: Cigarettes Start date: 05/23/1956 Smokeless tobacco: Never Substance Use Topics Alcohol use: Yes Comment: football season Drug use: Never FAMILY HISTORY Problem Relation Age of Onset Aneurysm Brother aorta ruptured MEDICATIONS: glimepiride (AMARYL) 2 mg tablet Take 2 mg by mouth once daily. lisinopril (ZESTRIL) 40 mg tablet Take 1 tablet by mouth every afternoon. ezetimibe (ZETIA) 10 mg tablet Take 1 tablet by mouth every afternoon. amLODIPine (NORVASC) 5 mg tablet Take 1 tablet by mouth every afternoon. cetirizine (ZYRTEC) 10 mg tablet Take 1 tablet by mouth every afternoon. pramipexole (MIRAPEX) 1 mg tablet Take 1 tablet by mouth every afternoon. omeprazole (PRILOSEC) 20 mg capsule Take 20 mg by mouth once daily. metFORMIN (GLUCOPHAGE) 500 mg tablet Take 1 tablet by mouth every 12 hours. WIXELA INHUB 100-50 mcg/dose inhaler Inhale 1 Puff as instructed two times a day. multivitamin (DAILY MULTI-VITAMIN) tablet Take 1 tablet by mouth once daily. melatonin 10 mg tab Take 10 mg by mouth daily at bedtime. calcium carbonate (CALCIUM 500 ORAL) Take 500 mg by mouth once daily. Cholecalciferol, Vitamin D3, (VITAMIN D) 25 mcg (1,000 unit) cap Take 1,000 Units by mouth once daily. Ascorbic Acid (VITAMIN C) 500 mg chew Take 500 mg by mouth once daily. BABY ASPIRIN ORAL Take 81 mg by mouth once daily. ALLERGIES: ALLERGIES No Known Allergies REVIEW OF SYSTEM: Constitutional: No weight loss, malaise or fevers. HEENT: Negative for frequent or significant headaches, No changes in hearing or vision, no nose bleeds or other nasal problems Respiratory: Negative for cough, wheezing, or shortness of breath. Positive for shortness of breath on exertion Cardiovascular: Negative for chest pain, leg swelling or palpitations, claudication Gatrointestinal: Negative for abdominal discomfort, blood in stools or black stools or change in bowel habits Genitourinary: No history of dysuria, frequency, or incontinence and No difficulty urination, nocturia >1 times per night or hematuria Musculoskeletal: Negative for joint pain or swelling, back pain or muscle pain Endocrine: Negative for cold or heat intolerance, polyuria, polydipsia and goiter Hematology/Lymphatic : Negative for prolonged bleeding, bruising easily or swollen nodes Neurologic: No history or headaches, syncope, paralysis, seizures or tremors Integumentary: Negative for lesions, rash, and itching. PHYSICAL EXAM: VITALS: BP 103/59[LA[ Pulse 86 Temp (Src) 98.3 (Oral) Resp 16 Ht 5' 0 [with gym shoes on[ (1.52m) Wt 145 lb 1.6 oz (65.8kg) SpO2 93% BMI 28.34 kg/(m2). General: Alert and oriented, No acute distress, Obese Integumentary: Normal color, no rash, no lesions. HEENT: EOM, pupils (more content not included)... Normal [facility] 04-25-2023 CNPN Telephone (PODCCP) BETH STARKEY ([id number]) 1940 F Date Time Provider Department 04/25/23 NO PCP PODCCP During your visit today, we recorded the following information about you: Alondra Quiros 04/25/2023 4:23 PM Signed Reason for call: Ms Starkey called,and she would like to schedule an appointment with vascular surgery Referred by Dr Judit Tate Home and cell number: [phone] Diagnosis: AAA Kind Regards Alondra Allergies As of Date: 04/25/2023 (Not on File) Date Reviewed: Never Reviewed Reason for Visit: Appointment [[id number]] Problem List As Of Date: 04/25/2023 (None) Encounter Status:Closed by ALONDRA QUIROS on 04/25/23 [facility] CNPNon 04-22-2023 CNPN Telephone (REFPHY) BETH STARKEY ([id number]) 1940 F Date Time Provider Department 04/22/23 NO ONE (HISTORICAL) REFPHY During your visit today, we recorded the following information about you: Patrizia Orozco 04/22/2023 10:06 AM Signed Patient: Beth Starkey Date of : 1940 Patient phone number: [phone] Referring Provider for the encounter: Marck Tate MD Requesting Provider: N/A Reason for requesting visit (RFV/signs and symptoms/diagnosis): Sent Telephone Encounter - updated tracking. Person calling: caregiver: Patrizia Return call to: self Medical Records/Insurance Card scanned into [employer]: Yes Comments: N/A Allergies As of Date: 04/22/2023 (Not on File) Date Reviewed: Never Reviewed Reason for Visit: External Referrals/resources [909] Problem List As Of Date: 04/22/2023 (None) Encounter Status:Closed by PATRIZIA OROZCO on 04/22/23 [facility] Outside Radiologyon 04-20-20 23 Outside Radiology [id number] #1.00TIFF Normal [facility] Consent for Treatmenton Consent for Treatment [id number] #1.00TIFF Normal [facility] Lab - Otheron 03-23-2023 Lab - Other [id number] 0#1.00TIFF Normal [facility] Physician Orderon 01-21-2023 Physician Order [id number] #1.00CD:127 Normal [facility] Consent for Treatmenton 12-23 Consent for Treatment [id number]# 1.00CD:127 Normal [facility] Progress Note-Nurseon 2022 Progress Note-Nurse [id number] #1.00CD:127 Normal [facility] Consent for Treatmenton 09-21 Consent for Treatment [id number] #1.00CD:127 Normal [facility] Heart and Vascular Office/Cl inic Noteon 10-11-2022 Heart and Vascular Office/Clinic Note Chief Complaint F/ U testing History of Present Illness 82-year-old lady heavy smoker with 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 Extends from the descending thoracic aorta all the way down to the infrarenal segment. She continues to smoke. I discussed with her the diagnosis and different treatment option. I discussed with her smoking cessation blood pressure control. She elected to proceed with surveillance imaging and 6-month with a CT of the chest abdomen pelvis. She understand the importance of smoking cessation. She looks frail. I discussed with her evaluating her heart and lung function if he she gets to 6 cm. Review of Systems PHQ Score Initial Depression Screen Score: 0 Constitutional: no fever, no chills, no sweats, no weakness Skin: no Jaundice, no rash, no lesions, nopetechiae ENMT: no ear pain, no sore throat, no congestion, no hoarseness Respiratory: no shortness of breath, no cough, no orthopnea, no wheezing Cardiovascular: no chest pain, no palpitations, no edema Gastrointestinal: no nausea, no vomiting, no diarrhea, no GI bleeding Genitourinary: no dysuria, no hematuria, no discharge, no pain Musculoskeletal: no back pain, no trauma Neurologic: no headache, no dizziness, no numbness, no weakness Psychiatric: no sleeping problems, no irritability, no mood swings/depression. Heme/Lymph: no bleeding tendency, no bruising tendency, no petechiae, no swollen nodes Allergy/Immunologic: no seasonal allergies, no food allergies, no recurrent infections, no impaired immunity Additional ROS info: Except as noted in the above Review of Systems and in the History of Present Illness all other systems have been reviewed and are negative or noncontributory. Physical Exam Vitals & Measurements HR: 96(Peripheral) BP: 130/79 SpO2: 95% HT: 60 in HT: 152 cm WT: 70.3 kg WT: 154.66 lb BMI: 30.43 General: alert, no acute distress Skin: warm, dry Head: no trauma, normocephalic Neck: Trachea midline, no adenopathy, no tenderness Eye: normal conjunctiva, sclera clear Cardiovascular: regular rate and rhythm, normal peripheral perfusion Respiratory: Lungs CTA, respirations non labored Chest wall: no deformity. Gastrointestinal: soft, non distended, no tenderness, no guarding. Back: No tenderness, Normal ROM, Normal alignment. Extremities: no edema,no deformity, no trauma Neurological: oriented x 4, LOC appropriate for age, motor strength equal & normal bilaterally, sensation equal & normal bilaterally, speech normal Psychiatric: cooperative, affect appropriate for age, normal judgement, normal psychiatric thoughts. Assessment/Plan 1. 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 Extends from the descending thoracic aorta all the way down to the infrarenal segment. She continues to smoke. I discussed with her the diagnosis and different treatment option. I discussed with her smoking cessation blood pressure control. She elected to proceed with surveillance imaging and 6-month with a CT of the chest abdomen pelvis. She understand the importance of smoking cessation. She looks frail. I discussed with her evaluating her heart and lung function if he she gets to 6 cm. Follow-up No qualifying data available Problem List/Past Medical History Ongoing No qualifying data Historical No qualifying data Medications cetirizine 10 mg Tab, 10 mg= 1 tab(s), Oral, Daily lisinopril 10 mg Tab, 10 mg= 1 tab(s), Oral, Daily Allergies No Known Medication Allergies Social History Tobacco - High Risk, 09/06/2022 10 or more cigarettes (1/2 pack or more)/day in last 30 days Tobacco Use:. Cigars, Yes, 10/11/2022 Family History CHF - Congestive heart failure: Mother. Brenda Gehrig's disease: Father. Normal [facility] Comment on above: Result Comment: Elec tronically Signed By: Dayron Jorgensen MD\.br\Date and Time Signed: 10/11/22 10:20 EDT Physician Orderon 09-28-2022 Physician Order [id number] 7#1.00CD:127 Normal [facility] CHEMISTRYOrdered By: SYSTEM SYSTEM on 09-24-2022 Creatinine [Mass/Vol] 0.8 mg/dL Normal 0.5 - 1.3 mg/dL [facility] [place] GFR/1.73 sq M.predicted among non-blacks MDRD (S/P/Bld) [Vol rate/Area] 74 mL/min/1.73 m2 Normal >=59mL/min/1. 73 m2 [facility] [place] S CTA Abdomen and Pelvison CTA Abdomen and Pelvis Exam Date/Time: 09/24/2022 10:55 EDT Reason for Exam: I71.20;Abdominal aortic Aneurysm (AAA) Report Refer to concurrent CTA chest dictation. All CT scans at this facility use dose modulation, iterative reconstruction, and/or weight based dosing when appropriate to reduce radiation dose to as low as reasonably achievable. Ordering Provider: Dayron Jorgensen FINAL REPORT Dictated: 09/24/2022 12:19 pm Edinson Staley MD Signed (Electronic Signature): 09/24/2022 12:19 pm Signed by: Edinson Staley MD Transcribed by: DP Technologist: DPR Technical Comments GFR (mL/min/1/73m2) >60 Contrast: Isovue 370 Contrast amount in ml's: 100 Normal [facility] CTA Cheston 09-24-2022 CTA Chest Exam Date/Time: 09/24/2022 10:55 EDT Reason for Exam: I71.20;Other (please specify) Report IMPRESSION: Thoracic aortic aneurysm of the descending thoracic aorta measuring around 4.4 cm more proximally and around 5.0 cm at the diaphragmatic hiatus. Abdominal aortic aneurysm, involving the entire abdominal aorta, measuring up to 5.5 cm to the level of the renal arteries. Extensive mural thrombus adjacent to the areas of aneurysm of the aorta with areas of increased density within the thrombus suggestive of calcification. Emphysema. Few small, less than 6 mm, pulmonary nodules. No follow-up imaging is required. If there are risk factors for lung malignancy, a follow-up chest CT could be obtained in 12 months. Heterogeneous thyroid with small nodules. Could correlate with thyroid ultrasound as indicated. 6.0 cm left adnexal cyst, simple-appearing. This could be best assessed with follow-up pelvic ultrasound as indicated. CTA Chest and CTA abdomen/pelvis. CLINICAL HISTORY: Abnormal CT at outside facility 3 weeks ago. No current chest or abdominal complaints. TECHNIQUE: CTA of the chest, abdomen, and pelvis according to dissection protocol only with arterial phase images, dedicated reconstructions, and thin and volume reconstruction. Contrast: 100 mL of intravenous Isovue-370. All CT scans at this facility use dose modulation, iterative reconstruction, and/or weight based dosing when appropriate to reduce radiation dose to as low as reasonably achievable. COMPARISON: None available. RESULT: VASCULAR: Extensive atherosclerotic disease involving the aorta. Aneurysmal dilation of the descending thoracic aorta measuring around 4.4 cm more proximally and measuring around 5.0 cm at the diaphragmatic hiatus. Aneurysm dilation involving the Report proximal abdominal aorta measuring around 5.1 cm, also involving the aorta at the level of the renal arteries measuring around 5.5 cm, with the infrarenal abdominal aorta measuring around 4.0 cm. Some challenges in measurement due to tortuosity of the aorta. Adjacent to the aneurysmal dilation of the aorta there is extensive mural thrombus involving the distal descending thoracic aorta and essentially the entire abdominal aorta with areas of increased density within the thrombus suggestive of calcification. Aortic arch vessels appear grossly patent with calcifications. Celiac axis and SMA, and RASHEL appear patent with vascular calcifications. Calcifications of the iliac vessels, without aneurysm. CHEST: Lung parenchyma and pleura: Central airways grossly patent. Mild bronchial wall thickening. Emphysematous changes, upper lobe predominant with extensive centrilobular changes in the upper lobes. No focal consolidation. No pleural effusion. No pneumothorax. Few small, less than 6 mm, pulmonary nodules. Thoracic inlet, heart, and mediastinum: Visualized thyroid with enlargement of the left lobe with small nodules. No axillary, mediastinal, or hilar lymphadenopathy. Normal pulmonary size artery. Normal heart size. Scattered coronary artery calcifications. No pericardial effusion or thickening. Esophagus nondilated. Bones: No acute osseous findings. No destructive osseous lesions. Degenerative changes. Soft tissues: Unremarkable. ABDOMEN/PELVIS: Liver: Unremarkable. Biliary: Cholecystectomy. Pancreas: Unremarkable. Spleen: No splenomegaly. Adrenals: No mass. Kidneys: No calculus or hydronephrosis. Lobular contour with multiple small parenchymal defects suggestive of remote infarcts. GI Tract: No bowel dilation. Diverticulosis without evidence for acute diverticulitis. Feces throughout the colon. Lymph Nodes: No lymphadenopathy. Mesentery/peritoneum /retroperitoneum: No ascites or mass. Vasculature: See above. Pelvis: 6.0 cm simple appearing left adnexal cyst. Uterine calcifications. No significant free fluid. Bladder decompressed. Bones: No acute osseous findings. Degenerative changes, especially with multilevel degenerative changes of the lumbar spine. Leftward curvature of the lumbar spine. Chronic appearing wedge deformity of L2. Soft tissues: Unremarkable. Report Ordering Provider: Dayron Jorgensen FINAL REPORT Dictated: 09/24/2022 12:18 pm Edinson Staley MD Signed (Electronic Signature): 09/24/2022 12:18 pm Signed by: Edinson Staley MD Transcribed by: ELKE Technologist: FLIP Technical Comments GFR (mL/min/1/73m2) >60 Contrast: Isovue 370 Contrast amount in ml's: 100 Normal [facility] Consent for Treatmenton Consent for Treatment [id number] 30 [id number] #1.00CD:127 Normal [facility] Creatinineon 09-24-2022 Creatinine [Mass/Vol] 0.8 mg/dL Normal 0.5-1.3 [facility] Comment on above: Performed By: #### 2 [id number], [id number] ####[facility] [address] [place] [address] eGFRon 09-24-2022 GFR/1.73 sq M.predicted among non-blacks MDRD (S/P/Bld) [Vol rate/Area] 74 mL/min/1.73 m2 Normal >=59 [facility] Comment on above: Order Comment: Order added by Discern Expert. Result Comment: Office Receptionist rogelio kidney disease could be indicated at eGFR's of less than 60 mL/min/1.73m2. Kidney failure is indicated at less than 15 mL/min/1.73m2. Performed By: #### 2 [id number], [id number] ####[facility] [address] [place] [address] Physician Orderon 09-23-2022 Physician Order [id number] 3#1.00CD:127 Normal [facility] Coding Summary.on 09-09-2022 Coding Summary. CD:[id number] Ww+PGhlYWQ+IY3INBJaM 04etUWbmR9qR6ZXWOcDY ywgQVBQTElOSyIgbmFtZ D0vvXYiOMWt IC8+VR4cYJIgDscrwRYk j6P9wLD4H06urr9vJWmo eXY1HQJiPwUfeknih0et jOv9FLlnUmscWrMk SGKoyW94KGI3wY07Bx90 uBBcsTEcp8tlcWy9AlMz GTUjLTS8gUgyUArgd0Yb PNBpQ44poDNoi8R1 IGNvbGxhcHNlOyBlbXB0 vK9gBUkzeybda9trddtm Rug6qp63hTMmx1J0qON4 D6TvsoY8GASptVFk KpipkHAWsD1rgwvlv8vb ggqqWbDuUIHwSFa3SMi8 OVFehRdtIvIlWJ66GHB7 AXYigdXbQ3CrOFHp ySqtLeE2c0T1Km1OG9UU AmmwT5CXCOBTQCtlhCW+ VM17ts04G9DjAgzaYde3 BOGpAJK7hYG6uH2t UGVoPNxql1W2xBO6Z5Dm udLgzf1pe8vtSQFvCGla J31iaWHrb5D2NNIfrFX0 QDRqsGisWoTueB98 Oyc+BDTfrVhbo0LaGlyz x3fjl9zjhBo1UvniKWFa xcRgqHieQPA8u3KoGd4s DIZygUD0lGP4hZ8n IqRjQeP1IRxmE251MyBi nCWyQpgsK94zX0KdiUD+ RACnBow5YRRzbGkvLB1h Z2PjFHXugfguzIAe aQqcED0wKDSbilbwBAPl kH3oAUIrJ9i1YdKyUuF0 NZslB9RhVDEnjbxsZb58 mR6sTwYdTnU7XOtg Y8ViywY7NZFjvQXxKGsu RVE9X64yf9W7AOTtIEKf FZW3fDE8qF7psPaykoxf bGVmdDsgdmVydGlj XIlhRWmdS551EVUxlMis PkNvZGluZyBEYXRlOiAg MDQvMjAvMjAyMzwvdGQ+ CANrWTM0jOifCDCz gULtLNtyOs8rpAgjpKur WL4bEPZxxycgQBTkjG0b OZXznMWlgQykNA5jNQRt wcpok238VnXjUOL2 IWKfeKSxO0EhjX0zLfUh EFEfAOXhW3UtaCEcUKcb O484FYotLyN4ELMvttDi O9BrEMQkaRtwUyP9 x3J1Tk4Mc4GmbgyxI3Ft mRCsKgBlAollMZk1B3Yc PjwvdHI+LG75QVMcZX32 CIs4JBI7aJosDTnu PSAhY0ZcsD6aPiJsGSNy ZGRkOyc+PHRhYmxlIHdp ZHRoPScxMDAlJyBzdHls BV0sVx6uKFXpYGOr uRhfpRMyCcEoj3znGVRe GJnyWA5qgZegB2HgmHA8 MVHtx9f1Dz42X65nN3Ae dXA+JGJscUQ9bQT4 jB5lZtIyHwV7TMhaL215 AkEzyRLyHgppo6zpt9bc eVv3SqK8KKJgscOjyNjc ZSU1z1CvHb81T09f IHdpZHRoPSIxNSUiIHZh jBaruc7lmB5sDo0+PGNv eLY8hQC8wR6pSzQlGdF4 ZPckP440WhBtgIMe Nsioc7xov3uynBn1DfSx MZBsssTkuElsOAD5n8Js Ps72D7TxiRupk8AnCho0 xz97zCLon1W5zNE3 Q2OjQAAjcrgriXUhkGqr OZ3lJLInbmamFHNzyL4y JWFnF9r1VuCdLyF0LIxn O8YoesT6ROTsbPYg LOHfiWXZqW6gkpyzh5sq cfdwZhQbYAJjIQh5XPs6 EVSocWhgGjStRPD1ApB9 XOJ4mPEbqW6yrOcd mmjbqJ2xJti+CTY1bTKa lGANVN1zWmkgvPX+PHRk ONE1oMllBSacUWQhmN6s EPKqC9f4ZuAbRxJ6 KCmqD1WqfjE4RPCwxNGd SHFuaOXWlH8fvksoy8ig socmXbWiTDFmHNc3KUa9 LWFsaWduOiBsZWZ0 WzQ0PAI8uZNreI5qkTxv hxohhB3uLau+QmlydGgg TOL6FZp4M6YpGyu3DKYk kLkuRJ5bxZFzTSzp Lo9apKitbGcnPT5sPACv ptggq510JzUuw5qdPQSk aMPvDLrlHSP4X10on2H6 YLRuXOZwECA0vGP2 tE8kyEbzxweeoTIlaIkx jpUiaPhqYInrSKjbC674 FSQfvLsuTtGjXRk5V2Xb Jkx5OPPmvEfkXY1y lZKoLRhaKv8fiRurbYmw GA4yPYSzzxafw479RhAq t6mvVBGpwMNgKYczWKY4 T12wn8L1BRPuPTGw LNP7gAI9fP7zaHamxqgs bGVmdDsgdmVydGljYWwt JEqxF051CBSxjEooQgEo aOh6Y7UuBlf3UHPz kAzyVW6dzHSjSPyoAd7z zMhlsNslXO7bDJYtvbfy o563JkBaz4usPARhwBJy PWjxGIS9Q29xe4A2 TVFfZYCzFGH1iGV8pO9w bGlnbjogbGVmdDsgdmVy iVtsOMfyWRkeR173LENg cDsnPlBhdGllbnQg UDspXYq7L7GaRunvyYO+ YW79CMAoHW34pJExvHIs l1xspOm4OwJwVLXvHGP6 nDscEGqul3FuHOHq Y24ztTGhi9J0HDJnnEhd tJCrMxYxvYL2vR6wCGvd fyzxx5cxtbpkWoysp6ie tb08sJ80E89uKOlu ZHRoPSIzMCUiIHZhbGln ts2lyA0xEb9+PGNvbCB3 nTX0hR6aNKCwBlV5JSlw R231OsOjfPIhTruy q1rjy2rptFy7OcH2VNWd ekMbyRidZIE8m7DrJo72 Z76rHXsmTEWcEHRqSSJt FJQpwXtvfc4fnW5l Ii8+CCDzuBR0gUK9hE3w IsGgVkE2OGkgQ188GjOi rOTqKmduH15yV3TffXH+ UDNsNmn2RVOaxBgj WN2jkYKoGWftUr0fSLP6 KePdSdFiKWrgB7TrIZSc xhlumnyytEX4STNtQFBo zJ25Ux7uvEbyUNPp hOVHnP9nanrwu6uzresd AzJsQRXiURz7PPv5FDPa eKoeEnGzKBW2YvT0WUF3 rRWmhU3snUbtzhxh tQ6zX9VwMKKmuverMv47 nQ3uCuWdAsO9YMfhXcc+ W5UDKnnmVRNHMOYBIW77 FX10cYIxc5N5sJD7 P1KfEMOsbsjjleufzAH0 TASqAEKxmQ01hEEpJEdy Qj2ag2Y0l567RCZzLGUc xT35Zw4zpUxoLDJw cMZDfW8aeeeyq6wgnhcc HpZwOJKnSGe7XRo9UHEm fWarScOjGRE5LbU1PMI9 fYFteJ1kwAtrancc xH3aHvf+MTAvMjEvMTk0 MTwvdGQ+ZOUnKNF6qNoc XGjrSILyyO9dYXBwI1t9 UzXjUsT9HXptL4Fq JPZjlhghZz82bO3zTpRj JcJ7BDveM3MklmZ3ASFq lUFaBYoiTCQ4Q64gw6J2 DCGpXHGqZFB6eKU0 hD2fiUirctzilWQuiCug wxMnfRexYQnlKGezU629 IHRvcDsnPjgxIFllYXJz VA60IX75xLDkx3N8 oFB6J7RxGDFmxwfxteud eZL1FCMhYHDhjW23cNZu ALgmAq7nu2C8h475KPCk XVCisB10Dr9ddTbp VHBtzMMAjB6fynvrv7uh bzlnKeLtDQOxDXd4MXu7 UERrlHgpYgMeAJT1BiP1 SJM2cTEvtL5wtXsv cipfbQ7nFbh+RmVtYWxl WU00HH83fVEdq3J3xAR0 L3FdDUZyyoafiafaxOU4 PRRcQYRqkL38aABq SIkyWt0xx0I6x242NOVw NQHoiO97Jm8biVbwCLWu rABPhN1djlpvy1lsarzu XoRvIKSmYMw9BUi2 MZOybRnsHiHhMSZ4IqE4 DLE6bFCwuO6hpMsrcpba mL8rCwx+U2G9aPL1nPFy dDwvdGQ+VP81bn51 H5LnQireIug9VVAdVCR1 qGT1nG8sQPPxJBwwq5R0 rYM6F2WevmShpb7jr9ir NCQjKJdtH39ozOZp j7B2YVKmrAQ3DXGlsXao GjGukD62Egc+PGNvbGdy z7XyVcgin0rzw7vzcPi1 IjMwJSIgdmFsaWdu BLA0y4NpBg55F98zNFlz ZHRoPSIzMCUiIHZhbGln mg7voW2vJp2+PGNvbCB3 bEG7rT0tArRlUcJ0 ELawP928CeWprVTsMacl d2bkm6kawIb2CsMiSQQl cwOrxMriNXQ2u3HeIy96 E7HasYbca2IuGuw0 bj50pRPjm4Q0lQN0K0Go DGEgkasvfCGemRhrSG1h WJHxivdkBUJjrR2yMMXk Z9m2SqUjCzH5KOwv S0HjkoU0AMIehPOzMPNy hRSJyD5qwwvlr2pmoqaq AwSjUMCaVUy1IGw0QWQq iKeoWzFwTTQ7LrQ9 SGR8nCYjrT8esRfpxlos qX8nQlt+NFn0a5nfsULw FC7jkQR2AW72NV95uPDe y3W2uNI7M6SzEJRe ykcgbravmNF6PPVwAVJm iW24Ev2gfErhNj5fUUUv RSE8PGFlhLQzL3MhtD5l KkJzJBNaJLJeW0Qa bMBmHXizY755DTkpAjB3 JOVasxCgO1WlTMRngFun DwN2s2L5Nw4YOH72KX27 EV07yNQuk9G7lCD7 P7HcUDJhwkhwbfvbiIT7 GBRpTWNblL59Hk4taSgw Gn4gLLXaIFW1EUIrbELm E7ZlbP7lTnAgLIJd ZYWhE8OekALlQCcbJ294 SJftFyE8BCXalwMnW8Zf ERGlhLutVgP1c9N2Pt3C Yv99PH95YL42yPEk m6Q5bAL3Q1LmHVQtsswd fgfbnLV9ZLUtGDUfwT47 Od2rpLydYe9fNTPqNLD1 ZGFkxMAuC2GwtY2x McIjGRWnCSOjB5NtoUWt ZXipK911IMffNzC5HPBm zqKfP5OpBNPncOgbNmR0 k2R9Pe8HRXwjdey6 I5JeZrljqAL+LS23GKBa NU42dINnsRSou7lrjNj8 DvViVXNxVPS9hRzeUEqz y1DsMWSnZ84wlYHk s1W5GVPz (more content not included)... Normal [facility] Consent for Treatmenton 08-21 Consent for Treatment [id number] 30 [id number] #1.00CD:127 Normal [facility] Heart and Vascular Office/Cl inic Noteon 09-06-2022 Heart and Vascular Office/Clinic Note Chief Complaint New Patient- TAA History of Present Illness This is a 82-year-old lady was found to have 4.3 cm of thoracic aneurysm and another 3.5 cm descending thoracic aneurysm the scans were done without contrast. Is not clear if the aneurysm is larger or not. We will have the images we just have the report. She does not have any abdominal screening. She is an active smoker. She has been smoking for a long time. No back pain or abdominal pain. Review of Systems PHQ Score Initial Depression Screen Score: 0 General: alert, no acute distress Skin: warm, dry Head: no trauma, normocephalic Neck: Trachea midline, no adenopathy, no tenderness Eye: normal conjunctiva, sclera clear Cardiovascular: regular rate and rhythm, normal peripheral perfusion Respiratory: Lungs CTA, respirations non labored Chest wall: no deformity. Gastrointestinal: soft, non distended, no tenderness, no guarding. Back: No tenderness, Normal ROM, Normal alignment. Extremities: no edema,no deformity, no trauma Neurological: oriented x 4, LOC appropriate for age, motor strength equal & normal bilaterally, sensation equal & normal bilaterally, speech normal Psychiatric: cooperative, affect appropriate for age, normal judgement, normal psychiatric thoughts. Physical Exam Vitals & Measurements HR: 103(Peripheral) BP: 126/81 SpO2: 90% HT: 60 in HT: 152 cm WT: 70.5 kg WT: 155.1 lb BMI: 30.51 General: alert, no acute distress Skin: warm, dry Head: no trauma, normocephalic Neck: Trachea midline, no adenopathy, no tenderness Eye: normal conjunctiva, sclera clear Cardiovascular: regular rate and rhythm, normal peripheral perfusion Respiratory: Lungs CTA, respirations non labored Chest wall: no deformity. Gastrointestinal: soft, non distended, no tenderness, no guarding. Back: No tenderness, Normal ROM, Normal alignment. Extremities: no edema,no deformity, no trauma Neurological: oriented x 4, LOC appropriate for age, motor strength equal & normal bilaterally, sensation equal & normal bilaterally, speech normal Psychiatric: cooperative, affect appropriate for age, normal judgement, normal psychiatric thoughts. Assessment/Plan 1. Thoracic aortic aneurysm (TAA) (I71.20: Thoracic aortic aneurysm, without rupture, unspecified) This is a 82-year-old lady was found to have 4.3 cm of thoracic aneurysm and another 3.5 cm descending thoracic aneurysm the scans were done without contrast. Is not clear if the aneurysm is larger or not. We will have the images we just have the report. She does not have any abdominal screening. She is an active smoker. She has been smoking for a long time. No back pain or abdominal pain. 2. AAA (abdominal aortic aneurysm) (I71.40: Abdominal aortic aneurysm, without rupture, unspecified) This is a 82-year-old lady was found to have 4.3 cm of thoracic aneurysm and another 3.5 cm descending thoracic aneurysm the scans were done without contrast. Is not clear if the aneurysm is larger or not. We will have the images we just have the report. She does not have any abdominal screening. She is an active smoker. She has been smoking for a long time. No back pain or abdominal pain. Follow-up No qualifying data available Problem List/Past Medical History Ongoing No qualifying data Historical No qualifying data Medications cetirizine 10 mg Tab, 10 mg= 1 tab(s), Oral, Daily lisinopril 10 mg Tab, 10 mg= 1 tab(s), Oral, Daily Allergies No Known Medication Allergies Social History Tobacco - High Risk, 09/06/2022 10 or more cigarettes (1/2 pack or more)/day in last 30 days Tobacco Use:. Cigars, Yes, 09/06/2022 Family History CHF - Congestive heart failure: Mother. Brenda Gehrig's disease: Father. Normal [facility] Comment on above: Result Comment: Elec tronically Signed By: Jameel CURRIE, Dayron Loaiza\.br\Date and Time Signed: 09/06/22 10:16 EDT Referrals Officeon 3 Referrals Office [id number] 9#1.00CD:127 Normal [facility] CT CHEST WO CONon 08-02-2022 CT CHEST WO CON EXAMINATION: CT CHEST WO CON HISTORY: Chronic obstructive lung disease , chronic cough, smoker COMPARISON: No relevant comparison available. TECHNIQUE: Axial, Coronal, and Sagittal images were created without the administration of IV contrast material. Dose reduction techniques were achieved by using automated exposure control and/or adjustment of mA and/or kV according to patient size and/or use of iterative reconstruction technique. FINDINGS: LUNGS: Moderate emphysematous changes. A few tiny patchy opacities scattered within the lungs, largest is within right middle lobe, 5 mm; no suspicious nodules. PLEURA: No mass, effusion, or pneumothorax. VASCULATURE: No abnormality. WEST: Calcified right hilar lymph nodes. MEDIASTINUM: Calcified subcarinal lymph nodes compatible with chronic granulomatous disease. CARDIAC: No enlargement or pericardial thickening. AORTA: Abnormal dilation of the descending thoracic aorta, 4.5 cm proximally, 5.3 cm at level of diaphragm. Normal caliber ascending aorta and arch. CHEST WALL: No mass or axillary adenopathy. BONES: No bone lesion or fracture. LIMITED ABDOMEN: No suspicious findings. Limited images of the upper abdomen. OTHER: Negative. IMPRESSION: 1. Moderate emphysematous changes. 2. Several scattered small densities, largest is 5 mm within right middle lobe. While not overtly suspicious, if patient is at increased risk for lung cancer consider follow-up CT lung cancer screening in one year. 3. Marked aneurysmal dilation of the descending thoracic aorta, 5.3 cm in diameter at level of diaphragm. CT abdomen pelvis with IV contrast is recommended for evaluation of abdominal aorta. Electronically authenticated by: KAYY KAUR Date: 2022-08-02 10:52 Normal [facility] C. DIFF PCRon 07-28-2022 C. DIFFICILE PCR Negative Normal NEGATIVE [facility] Comment on above: Performed By: #### C DIFPOC #### [facility] [address] [address] [address] Spencer Braun OCC BLD IMMUNO SCREENon OCCULT BLOOD Negative Normal NEGATIVE [facility] Comment on above: Performed By: #### C BC #### [facility] [address] [place] [address] Dr. Spencer Braun INSULINon 07-15-2022 Insulin 17.7 uIU/mL Normal 2.6-24.9 [facility] Comment on above: Performed By: #### I NSULIN ####[facility] [address] [place], [place] [address]Dr. Spencer Braun BNPon 07-14-2022 Natriuretic peptide B (Bld) [Mass/Vol] 197.0 pg/mL Normal <=1,800.0 [facility] Comment on above: Performed By: #### B GANG KNIFE FISH CHOPPER, LIPID, CMP, T7, TSH #### [facility] [address] [address] [address] Spencer Braun CBC AUTO DIFFon 07-14-2022 BASO # 0.1 103/ul Normal 0.0-0.1 [facility] Comment on above: Performed By: #### C BC #### [facility] [address] [place] [address] Dr. Spencer Braun Basophils/100 WBC (Bld) 0.9 % Normal 0.2-2.0 [facility] Comment on above: Performed By: #### C BC #### [facility] [address] [place] [address] Dr. Spencer Braun EO # 0.2 103/ul Normal 0.0-0.7 [facility] Comment on above: Performed By: #### C BC #### [facility] [address] [place] [address] Dr. Spencer Braun Eosinophils/100 WBC (Bld) 2.5 % Normal 0.9-7.0 [facility] Comment on above: Performed By: #### C BC #### [facility] [address] [place] [address] Dr. Spencer Braun Erythrocyte distribution width (RBC) [Ratio] 13.8 % Normal 11.0-15.0 [facility] Comment on above: Performed By: #### C BC #### [facility] [address] [place] [address] Dr. Spencer Braun Hematocrit (Bld) [Volume fraction] 45.1 % Normal 36.0-48.0 [facility] Comment on above: Performed By: #### C BC #### [facility] [address] [place] [address] Dr. Spencer Braun Hemoglobin (Bld) [Mass/Vol] 14.7 g/dL Normal 12.0-16.0 [facility] Comment on above: Performed By: #### C BC #### [facility] [address] [place] [address] Dr. Spencer Braun IG # 0.04 10e3/ul Critically high 0.00-0.03 [facility] Comment on above: Performed By: #### C BC #### [facility] [address] [place] [address] Dr. Spencer Braun IG % 0.5 % Normal 0.0-0.5 [facility] Comment on above: Performed By: #### C BC #### [facility] [address] [place] [address] Dr. Spencer Braun LYMPH # 1.6 103/ul Normal 1.2-3.8 [facility] Comment on above: Performed By: #### C BC #### [facility] [address] [place] [address] Dr. Spencer Braun Lymphocytes/100 WBC (Bld) 20.4 % Critically low 20.5-60.0 [facility] Comment on above: Performed By: #### C BC #### [facility] [address] [place] [address] Dr. Spencer Braun MANUAL DIFF REQ NO Normal [facility] Comment on above: Performed By: #### C BC #### [facility] [address] [place] [address] Dr. Spencer Braun MCH (RBC) [Entitic mass] 28.8 pg Normal 26.7-34.0 [facility] Comment on above: Performed By: #### C BC #### [facility] [address] [place] [address] Dr. Spencer Braun MCHC (RBC) [Mass/Vol] 32.6 g/dL Normal 29.9-35.2 [facility] Comment on above: Performed By: #### C BC #### [facility] [address] [place] [address] Dr. Spencer Braun MCV (RBC) [Entitic vol] 88.3 fL Normal 81.0-99.0 [facility] Comment on above: Performed By: #### C BC #### [facility] [address] [place] [address] Dr. Spencer Braun MONO # 0.5 103/ul Normal 0.3-0.8 [facility] Comment on above: Performed By: #### C BC #### [facility] [address] [place] [address] Dr. Spencer Braun Monocytes/100 WBC (Bld) 6.5 % Normal 1.7-12.0 [facility] Comment on above: Performed By: #### C BC #### [facility] [address] [place] [address] Dr. Spencer Braun NEUT # 5.4 103/ul Normal 1.4-6.5 [facility] Comment on above: Performed By: #### C BC #### [facility] [address] [place] [address] Dr. Spencer Braun Neutrophils/100 WBC (Bld) 69.2 % Normal 43.0-75.0 [facility] Comment on above: Performed By: #### C BC #### [facility] [address] [address] [address] Spencer Braun Platelet mean volume (Bld) [Entitic vol] 9.1 fL Critically low 9.5-13.5 [facility] Comment on above: Performed By: #### C BC #### [facility] [address] [address] [address] Spencer Braun PLT 190 103/ul Normal 150-450 [facility] Comment on above: Performed By: #### C BC #### [facility] [address] [address] [address] Spencer Braun RBC 5.11 106/ul Normal 4.20-5.40 [facility] Comment on above: Performed By: #### C BC #### [facility] [address] [address] [address] Spencer Braun WBC 7.7 103/ul Normal 4.0-11.0 [facility] Comment on above: Performed By: #### C BC #### [facility] [address] [address] [address] Spencer Braun FREE THYROXINE INDEX T7on FTI 2.87 Normal 1.30-4.50 [facility] Comment on above: Performed By: #### B GANG KNIFE FISH CHOPPER, LIPID, CMP, T7, TSH ####[facility] [address] [id number][address] Spencer Braun T3U 33.0 % Normal 30.0-39.0 [facility] Comment on above: Performed By: #### B GANG KNIFE FISH CHOPPER, LIPID, CMP, T7, TSH ####[facility] [address] [id number][address] Spencer Braun T4 [Mass/Vol] 8.70 ug/dL Normal 4.80-13.90 [facility] Comment on above: Performed By: #### B GANG KNIFE FISH CHOPPER, LIPID, CMP, T7, TSH ####[facility] [address] [place], [place] [address]SuManish Braun GLYCOHEMOGLOBIN A1Con 2022 ADA RECOMMENDATION SEE BELOW Normal [facility] Comment on above: Result Comment: ADA RECOMMENDED LIMIT 4.0 - 6.0 ADA THERAPEUTIC TARGET < 7.0 ACTION SUGGESTED > 7.0 Performed By: #### A 1C ####[facility] [address] [id number] Braun Glucose [Mass/Vol] 123 mg/dL Normal [facility] Comment on above: Performed By: #### A 1C ####[facility] [address] [id number] Braun HbA1c (Bld) [Mass fraction] 5.9 % Normal 4.5-6.2 [facility] Comment on above: Performed By: #### A 1C ####[facility] [address] [id number][address] Spencer Braun IRONon 07-14-2022 Iron [Mass/Vol] 70.0 ug/dL Normal 50.0-170.0 [facility] Comment on above: Performed By: #### V ITAD, IRON #### [facility] [address] [place], [place] [address] Dr. Spencer Braun LIPID PROFILEon 07-14-2022 CHOL-HDL RATIO NORM SEE BELOW Normal [facility] Comment on above: Result Comment: 3.3 - 4.4 LOW RISK 4.4 - 7.1 AVERAGE RISK 7.1 - 11.0 MODERATE RISK >11.0 HIGH RISK Performed By: #### B GANG KNIFE FISH CHOPPER, LIPID, CMP, T7, TSH ####[facility] [address] [id number] Braun Cholesterol [Mass/Vol] 180 mg/dL Normal <=200 [facility] Comment on above: Performed By: #### B GANG KNIFE FISH CHOPPER, LIPID, CMP, T7, TSH ####[facility] [address] [id number] Braun Cholesterol in HDL [Mass/Vol] 50 mg/dL Normal 40-60 [facility] Comment on above: Performed By: #### B GANG KNIFE FISH CHOPPER, LIPID, CMP, T7, TSH ####[facility] [address] [id number][address] Spencer Braun Cholesterol in LDL [Mass/Vol] 105.8 mg/dL Normal [facility] Comment on above: Performed By: #### B GANG KNIFE FISH CHOPPER, LIPID, CMP, T7, TSH ####[facility] [address] [id number][address] Spencer Braun Cholesterol.total/Cho lesterol in HDL [Mass ratio] 3.6 {ratio} Normal [facility] Comment on above: Performed By: #### B GANG KNIFE FISH CHOPPER, LIPID, CMP, T7, TSH ####[facility] [id number] [place] [id number]. Spencer Braun HDL NORMAL > or = 60 mg/dl - LOW CARDIOVASCULAR RISK <40 mg/dl - HIGH CARDIOVASCULAR RISK Normal [facility] Comment on above: Performed By: #### [employer] G[employer] KNIFE FISH CHOPPER, LIPID, CMP, T7, TSH ####[facility] [id number] [place] [id number]. Spencer Braun LDL CALC NORMAL SEE BELOW Normal [facility] Comment on above: Result Comment: <100 mg/dl OPTIMAL 100 - 129 mg/dl NEAR OR ABOVE OPTIMAL 130 - 159 mg/dl BORDERLINE HIGH 160 - 189 mg/dl HIGH >190 mg/dl VERY HIGH Performed By: #### [employer] G[employer] KNIFE [employer] CHOPPER, LIPID, CMP, T7, TSH ####[facility] [id number] [place] [id number]. Spencer Braun Triglyceride [Mass/Vol] 121 mg/dL Normal <=150 [facility] Comment on above: Performed By: #### [employer] G[employer]NIFE [employer] CHOPPER, LIPID, CMP, T7, TSH ####[facility] [id number] [place] [id number]. Spencer Braun VLDL CALC 24.2 mg/dL Normal [facility] Comment on above: Performed By: #### [employer] G[employer] KNIFE [employer] CHOPPER, LIPID, CMP, T7, TSH ####[facility] [id number] [place] [id number]. Spencer Braun PROF 14(COMP METB)on 02-22-2 023 Albumin [Mass/Vol] 3.8 g/dL Normal 3.4-5.0 [facility] Comment on above: Performed By: #### [employer] G[employer]NIFE [employer] CHOPPER, LIPID, CMP, T7, TSH #### [facility] [address] [address] [address] Spencer Braun Albumin/Globulin [Mass ratio] 1.0 {ratio} Normal [facility] Comment on above: Performed By: #### [employer] G[employer]NIFE [employer] CHOPPER, LIPID, CMP, T7, TSH #### [facility] [address] [address] [address] Spencer Braun ALP [Catalytic activity/Vol] 135 U/L Critically high 46-116 [facility] Comment on above: Performed By: #### [employer]NIFE [employer] CHOPPER, LIPID, CMP, T7, TSH #### [facility] [address] [place] [address] Dr. Spencer Braun ALT [Catalytic activity/Vol] 20 U/L Normal 14-59 [facility] Comment on above: Performed By: #### [employer]NIFE [employer] CHOPPER, LIPID, CMP, T7, TSH #### [facility] [address] [place] [address] Dr. Spencer Braun Anion gap [Moles/Vol] 8.4 mmol/L Normal [facility] Comment on above: Performed By: #### B GANG KNIFE FISH CHOPPER, LIPID, CMP, T7, TSH #### [facility] [address] [place] [address] Dr. Spencer Braun AST [Catalytic activity/Vol] 14 U/L Critically low 15-37 [facility] Comment on above: Performed By: #### B GANG KNIFE FISH CHOPPER, LIPID, CMP, T7, TSH #### [facility] [address] [place] [address] Dr. Spencer Braun Bilirubin [Mass/Vol] 0.4 mg/dL Normal 0.2-1.0 [facility] Comment on above: Performed By: #### B GANG KNIFE FISH CHOPPER, LIPID, CMP, T7, TSH #### [facility] [address] [place] [address] Dr. Spencer Braun Calcium [Mass/Vol] 9.5 mg/dL Normal 8.5-10.1 [facility] Comment on above: Performed By: #### B GANG KNIFE FISH CHOPPER, LIPID, CMP, T7, TSH #### [facility] [address] [address] [address] Spencer Braun Chloride [Moles/Vol] 104 mmol/L Normal 98-107 [facility] Comment on above: Performed By: #### B GANG KNIFE FISH CHOPPER, LIPID, CMP, T7, TSH #### [facility] [address] [address] [address] Spencer Braun CO2 [Moles/Vol] 32.0 mmol/L Normal 21.0-32.0 [facility] Comment on above: Performed By: #### B GANG KNIFE FISH CHOPPER, LIPID, CMP, T7, TSH #### [facility] [address] [place] [address] Dr. Spencer Braun Creatinine [Mass/Vol] 0.72 mg/dL Normal 0.55-1.02 [facility] Comment on above: Performed By: #### B GANG KNIFE FISH CHOPPER, LIPID, CMP, T7, TSH #### [facility] [address] [place] [address] Dr. Spencer Braun EGFR-AF CAMBODIAN >60 Normal >=60 [facility] Comment on above: Performed By: #### B GANG KNIFE FISH CHOPPER, LIPID, CMP, T7, TSH #### [facility] [address] [place] [address] Dr. Spencer Braun EGFR-NON AF CAMBODIAN >60 Normal >=60 [facility] Comment on above: Performed By: #### B GANG KNIFE FISH CHOPPER, LIPID, CMP, T7, TSH #### [facility] [address] [place] [address] Dr. Spencer Braun Globulin (S) [Mass/Vol] 3.9 g/dL Normal [facility] Comment on above: Performed By: #### B GANG KNIFE FISH CHOPPER, LIPID, CMP, T7, TSH #### [facility] [address] [place] [address] Dr. Spencer Braun Glucose [Mass/Vol] 127 mg/dL Critically high 74-[address] [facility] Comment on above: Performed By: #### B GANG KNIFE FISH CHOPPER, LIPID, CMP, T7, TSH #### [facility] [address] [place] [address] Dr. Spencer Braun Potassium [Moles/Vol] 4.4 mmol/L Normal 3.5-5.1 [facility] Comment on above: Performed By: #### B GANG KNIFE FISH CHOPPER, LIPID, CMP, T7, TSH #### [facility] [address] [place] [address] Dr. Spencer Braun Protein [Mass/Vol] 7.7 g/dL Normal 6.4-8.2 [facility] Comment on above: Performed By: #### B GANG KNIFE FISH CHOPPER, LIPID, CMP, T7, TSH #### [facility] [address] [place] [address] Dr. Spencer Braun Sodium [Moles/Vol] 140 mmol/L Normal 136-145 [facility] Comment on above: Performed By: #### B GANG KNIFE FISH CHOPPER, LIPID, CMP, T7, TSH #### [facility] [address] [place] [address] Dr. Spencer Braun Urea nitrogen [Mass/Vol] 18.0 mg/dL Normal 7.0-18.0 [facility] Comment on above: Performed By: #### B GANG KNIFE FISH CHOPPER, LIPID, CMP, T7, TSH #### [facility] [address] [place] [address] Dr. Spencer Braun Urea nitrogen/Creatinine [Mass ratio] 25.0 mg/mg Normal [facility] Comment on above: Performed By: #### B GANG KNIFE FISH CHOPPER, LIPID, CMP, T7, TSH #### [facility] [address] [place] [address] Dr. Spencer Braun TSHon 07-14-2022 TSH 1.760 uIU/mL Normal 0.358-3.740 [facility] Comment on above: Performed By: #### B GANG KNIFE FISH CHOPPER, LIPID, CMP, T7, TSH #### [facility] [address] [place] [address] Dr. Spencer Braun VITAMIN D 25 OHon 07-14-2022 VIT D 25-OH 85.7 ng/mL Normal [facility] Comment on above: Performed By: #### V ITAD, IRON #### [facility] [address] [place] [address] Dr. Spencer Braun VIT D RANGES SEE BELOW Normal [facility] Comment on above: Result Comment: <20 ng/mL Vit D deficient 20 - <30 ng/mL Vit D insufficient 30 - 100 ng/mL Vit D sufficient >100 ng/mL Potential Toxicity Performed By: #### V ITAD, IRON #### [facility] [address] [place] [address] Dr. Spencer Braun CBC AUTO DIFFon 04-30-2022 BASO # 0.1 103/ul Normal 0.0-0.1 [facility] Comment on above: Performed By: #### C BC #### [facility] [address] [place] [address] Dr. Spencer Braun Basophils/100 WBC (Bld) 0.9 % Normal 0.2-2.0 [facility] Comment on above: Performed By: #### C BC #### [facility] [address] [place] [address] Dr. Spencer Braun EO # 0.2 103/ul Normal 0.0-0.7 [facility] Comment on above: Performed By: #### C BC #### [facility] [address] [place] [address] Dr. Spencer Braun Eosinophils/100 WBC (Bld) 2.1 % Normal 0.9-7.0 [facility] Comment on above: Performed By: #### C BC #### [facility] [address] [place] [address] Dr. Spencer Braun Erythrocyte distribution width (RBC) [Ratio] 13.9 % Normal 11.0-15.0 [facility] Comment on above: Performed By: #### C BC #### [facility] [address] [place] [address] Dr. Spencer Braun Hematocrit (Bld) [Volume fraction] 46.2 % Normal 36.0-48.0 [facility] Comment on above: Performed By: #### C BC #### [facility] [address] [place] [address] Dr. Spencer Braun Hemoglobin (Bld) [Mass/Vol] 15.1 g/dL Normal 12.0-16.0 [facility] Comment on above: Performed By: #### C BC #### [facility] [address] [address] [address] Spencer Braun IG # 0.05 10e3/ul Critically high 0.00-0.03 [facility] Comment on above: Performed By: #### C BC #### [facility] [address] [address] [address] Spencer Braun IG % 0.6 % Critically high 0.0-0.5 [facility] Comment on above: Performed By: #### C BC #### [facility] [address] [place] [address] Dr. Spencer Braun LYMPH # 1.7 103/ul Normal 1.2-3.8 [facility] Comment on above: Performed By: #### C BC #### [facility] [address] [place] [address] Dr. Spencer Braun Lymphocytes/100 WBC (Bld) 20.3 % Critically low 20.5-60.0 [facility] Comment on above: Performed By: #### C BC #### [facility] [address] [place] [address] Dr. Spencer Braun MANUAL DIFF REQ NO Normal [facility] Comment on above: Performed By: #### C BC #### [facility] [address] [place] [address] Dr. Spencer Braun MCH (RBC) [Entitic mass] 28.8 pg Normal 26.7-34.0 [facility] Comment on above: Performed By: #### C BC #### [facility] [address] [place] [address] Dr. Spencer Braun MCHC (RBC) [Mass/Vol] 32.7 g/dL Normal 29.9-35.2 [facility] Comment on above: Performed By: #### C BC #### [facility] [address] [place] [address] Dr. Spencer Braun MCV (RBC) [Entitic vol] 88.2 fL Normal 81.0-99.0 [facility] Comment on above: Performed By: #### C BC #### [facility] [address] [place] [address] Dr. Spencer Braun MONO # 0.6 103/ul Normal 0.3-0.8 [facility] Comment on above: Performed By: #### C BC #### [facility] [address] [place] [address] Dr. Spencer Braun Monocytes/100 WBC (Bld) 7.1 % Normal 1.7-12.0 [facility] Comment on above: Performed By: #### C BC #### [facility] [address] [place] [address] Dr. Spencer Braun NEUT # 5.7 103/ul Normal 1.4-6.5 [facility] Comment on above: Performed By: #### C BC #### [facility] [address] [place] [address] Dr. Spencer Braun Neutrophils/100 WBC (Bld) 69.0 % Normal 43.0-75.0 [facility] Comment on above: Performed By: #### C BC #### [facility] [address] [place] [address] Dr. Spencer Braun Platelet mean volume (Bld) [Entitic vol] 9.2 fL Critically low 9.5-13.5 [facility] Comment on above: Performed By: #### C BC #### [facility] [address] [place] [address] Dr. Spencer Braun PLT 180 103/ul Normal 150-450 [facility] Comment on above: Performed By: #### C BC #### [facility] [address] [place] [address] Dr. Spencer Braun RBC 5.24 106/ul Normal 4.20-5.40 [facility] Comment on above: Performed By: #### C BC #### [facility] [address] [place] [address] Dr. Spencer Braun WBC 8.2 103/ul Normal 4.0-11.0 [facility] Comment on above: Performed By: #### C BC #### [facility] [address] [address] [address] Spencer Braun FREE T3on 04-30-2022 FREE T3 2.98 pg/mlL Normal 2.18-3.98 [facility] Comment on above: Performed By: #### L IPID, TSH, T4, FT3, CMP ####[facility] [address] [id number][address] Spencer Braun GLYCOHEMOGLOBIN A1Con 2021 ADA RECOMMENDATION SEE BELOW Normal [facility] Comment on above: Result Comment: ADA RECOMMENDED LIMIT 4.0 - 6.0 ADA THERAPEUTIC TARGET < 7.0 ACTION SUGGESTED > 7.0 Performed By: #### A 1C ####[facility] [address] [place], [place] [address]Dr. Spencer Braun Glucose [Mass/Vol] 134 mg/dL Normal [facility] Comment on above: Performed By: #### A 1C ####[facility] [address] [place], [place] [address]Dr. Spencer Braun HbA1c (Bld) [Mass fraction] 6.3 % Critically high 4.5-6.2 [facility] Comment on above: Performed By: #### A 1C ####[facility] [address] [place], [place] [address]DrManish Braun LIPID PROFILEon 04-30-2022 CHOL-HDL RATIO NORM SEE BELOW Normal [facility] Comment on above: Result Comment: 3.3 - 4.4 LOW RISK 4.4 - 7.1 AVERAGE RISK 7.1 - 11.0 MODERATE RISK >11.0 HIGH RISK Performed By: #### L IPID, TSH, T4, FT3, CMP ####[facility] [address] [id number]. Spencer Braun Cholesterol [Mass/Vol] 177 mg/dL Normal <=200 [facility] Comment on above: Performed By: #### L IPID, TSH, T4, FT3, CMP ####[facility] [address] [id number]. Spencer Braun Cholesterol in HDL [Mass/Vol] 56 mg/dL Normal 40-60 [facility] Comment on above: Performed By: #### L IPID, TSH, T4, FT3, CMP ####[facility] [address] [address]Dr. Spencer Braun Cholesterol in LDL [Mass/Vol] 97.8 mg/dL Normal [facility] Comment on above: Performed By: #### L IPID, TSH, T4, FT3, CMP ####[facility] [address] [address]Dr. Spencer Braun Cholesterol.total/Cho lesterol in HDL [Mass ratio] 3.2 {ratio} Normal [facility] Comment on above: Performed By: #### L IPID, TSH, T4, FT3, CMP ####[facility] [address] [address]Dr. Spencer Braun HDL NORMAL > or = 60 mg/dl - LOW CARDIOVASCULAR RISK <40 mg/dl - HIGH CARDIOVASCULAR RISK Normal [facility] Comment on above: Performed By: #### L IPID, TSH, T4, FT3, CMP ####[facility] [address] [address]Dr. Spencer Braun LDL CALC NORMAL SEE BELOW Normal [facility] Comment on above: Result Comment: <100 mg/dl OPTIMAL 100 - 129 mg/dl NEAR OR ABOVE OPTIMAL 130 - 159 mg/dl BORDERLINE HIGH 160 - 189 mg/dl HIGH >190 mg/dl VERY HIGH Performed By: #### L IPID, TSH, T4, FT3, CMP ####[facility] [address] [address]Dr. Spencer Braun Triglyceride [Mass/Vol] 116 mg/dL Normal <=150 [facility] Comment on above: Performed By: #### L IPID, TSH, T4, FT3, CMP ####[facility] [address] [address]Dr. Spencer Braun VLDL CALC 23.2 mg/dL Normal [facility] Comment on above: Performed By: #### L IPID, TSH, T4, FT3, CMP ####[facility] [address] [address]Dr. Spencer Braun PROF 14(COMP METB)on 022 Albumin [Mass/Vol] 3.8 g/dL Normal 3.4-5.0 [facility] Comment on above: Performed By: #### L IPID, TSH, T4, FT3, CMP ####[facility] [address] [address]Dr. Spencer Braun Albumin/Globulin [Mass ratio] 0.9 {ratio} Normal [facility] Comment on above: Performed By: #### L IPID, TSH, T4, FT3, CMP ####[facility] [address] [address]Dr. Spencer Braun ALP [Catalytic activity/Vol] 143 U/L Critically high 46-116 [facility] Comment on above: Performed By: #### L IPID, TSH, T4, FT3, CMP ####[facility] [address] [place], [place] [address]Dr. Spencer Braun ALT [Catalytic activity/Vol] 19 U/L Normal 14-59 [facility] Comment on above: Performed By: #### L IPID, TSH, T4, FT3, CMP ####[facility] [address] [place], [place] [address]Dr. Spencer Braun Anion gap [Moles/Vol] 12.1 mmol/L Normal [facility] Comment on above: Performed By: #### L IPID, TSH, T4, FT3, CMP ####[facility] [address] [place], [place] [address]Dr. Spencer Braun AST [Catalytic activity/Vol] 17 U/L Normal 15-37 [facility] Comment on above: Performed By: #### L IPID, TSH, T4, FT3, CMP ####[facility] [address] [place], [place] [address]Dr. Spencer Braun Bilirubin [Mass/Vol] 0.3 mg/dL Normal 0.2-1.0 [facility] Comment on above: Performed By: #### L IPID, TSH, T4, FT3, CMP ####[facility] [address] [place], [place] [address]Dr. Maemarek Braun Calcium [Mass/Vol] 9.5 mg/dL Normal 8.5-10.1 [facility] Comment on above: Performed By: #### L IPID, TSH, T4, FT3, CMP ####[facility] [address] [address]Dr. Maemarek Braun Chloride [Moles/Vol] 102 mmol/L Normal 98-107 [facility] Comment on above: Performed By: #### L IPID, TSH, T4, FT3, CMP ####[facility] [address] [address]Dr. Maemarek Braun CO2 [Moles/Vol] 32.6 mmol/L Critically high 21.0-32.0 [facility] Comment on above: Performed By: #### L IPID, TSH, T4, FT3, CMP ####[facility] [address] [address]Dr. Spencer Braun Creatinine [Mass/Vol] 0.69 mg/dL Normal 0.55-1.02 [facility] Comment on above: Performed By: #### L IPID, TSH, T4, FT3, CMP ####[facility] [address] [address]Dr. Spencer Braun EGFR-AF CAMBODIAN >60 Normal >=60 [facility] Comment on above: Performed By: #### L IPID, TSH, T4, FT3, CMP ####[facility] [address] [address]Dr. Spencer Braun EGFR-NON AF CAMBODIAN >60 Normal >=60 [facility] Comment on above: Performed By: #### L IPID, TSH, T4, FT3, CMP ####[facility] [address] [address]Dr. Spencer Braun Globulin (S) [Mass/Vol] 4.1 g/dL Normal [facility] Comment on above: Performed By: #### L IPID, TSH, T4, FT3, CMP ####[facility] [address] [address]Dr. Spencer Braun Glucose [Mass/Vol] 108 mg/dL Critically high 74-[address] [facility] Comment on above: Performed By: #### L IPID, TSH, T4, FT3, CMP ####[facility] [address] [address]Dr. Spencer Braun Potassium [Moles/Vol] 4.7 mmol/L Normal 3.5-5.1 [facility] Comment on above: Performed By: #### L IPID, TSH, T4, FT3, CMP ####[facility] [address] [address]Dr. Spencer Braun Protein [Mass/Vol] 7.9 g/dL Normal 6.4-8.2 [facility] Comment on above: Performed By: #### L IPID, TSH, T4, FT3, CMP ####[facility] [address] [address]Dr. Spencer Braun Sodium [Moles/Vol] 142 mmol/L Normal 136-145 [facility] Comment on above: Performed By: #### L IPID, TSH, T4, FT3, CMP ####[facility] [address] [address]Dr. Spencer Braun Urea nitrogen [Mass/Vol] 19.0 mg/dL Critically high 7.0-18.0 [facility] Comment on above: Performed By: #### L IPID, TSH, T4, FT3, CMP ####[facility] [address] [address]Dr. Spencer Braun Urea nitrogen/Creatinine [Mass ratio] 27.5 mg/mg Normal [facility] Comment on above: Performed By: #### L IPID, TSH, T4, FT3, CMP ####[facility] [address] [address]Dr. Spencer Braun T4on 04-30-2022 T4 [Mass/Vol] 8.30 ug/dL Normal 4.80-13.90 [facility] Comment on above: Performed By: #### L IPID, TSH, T4, FT3, CMP ####[facility] [address] [place], [place] [address]OzManish Braun TSHon 04-30-2022 TSH 1.777 uIU/mL Normal 0.358-3.740 [facility] Comment on above: Performed By: #### L IPID, TSH, T4, FT3, CMP ####[facility] [address] [place], [place] [address]Dr. Spencer Braun VITAMIN D 25 OHon 04-30-2022 VIT D 25-OH 72.1 ng/mL Normal [facility] Comment on above: Performed By: #### V ITAD #### [facility] [id number] Spencer Braun VIT D RANGES SEE BELOW Normal [facility] Comment on above: Result Comment: <20 ng/mL Vit D deficient 20 - <30 ng/mL Vit D insufficient 30 - 100 ng/mL Vit D sufficient >100 ng/mL Potential Toxicity Performed By: #### V ITAD #### [facility] [address] [address] [address] Spencer Braun MG MAMM SCREEN 3D AWAIS CADon 02-16-2022 MG MAMM SCREEN 3D AWAIS CAD Patient: BETH STARKEY Exam Date: 02/16/2022 : 1940 Gender:F Ordering : DR MARCK TATE . Admission #: [id number] Family : Order #: [id number] CLICK HERE TO VIEW EXAM RADIOLOGY REPORT PROCEDURE: MAMMOGRAM SCREENING 3D BILATERAL CAD COMPARISON: MG MAMM SCREEN 3D AWAIS CAD, 02/12/2021. MG MAMM SCREEN AWAIS W CAD, 12/20/2017. INDICATIONS: Screening mammography Calculator Name NCI Breast Cancer Risk Assessment Tool 5 Year Breast Cancer Risk 1.30% Lifetime Breast Cancer Risk 2.00% Personal Breast Cancer No Personal Ovarian Cancer No Treatments None Family Cancers Aunt-paternal with breast cancer at age 45; Cousin-paternal with breast cancer at age 36; Cousin-paternal with breast cancer at age 42; Cousin-paternal with breast cancer at age 38; Uncle-maternal with prostate cancer at age 70; Uncle-paternal with prostate cancer at age 70. LOCATION: [facility] BREAST COMPOSITION: Heterogeneously dense,which may obscure small masses. FINDINGS: DIAGNOSTIC CATEGORY 2--BENIGN FINDING. NO CHANGE FROM COMPARISON. Scattered benign-appearing nodules are present. Scattered benign-appearing calcifications are present. Scattered benign-appearing lymph nodes are present. RIGHT BREAST: No significant suspicious finding. Stable cluster of microcalcifications quadrant at chest wall. Micro clip marker upper outer quadrant, mid breast. LEFT BREAST: No significant suspicious finding. RECOMMENDATIONS: ROUTINE MAMMOGRAM AND CLINICAL EVALUATION IN 12 MONTHS. PLEASE NOTE: A NORMAL MAMMOGRAM DOES NOT EXCLUDE THE POSSIBILITY OF BREAST CANCER. A CLINICALLY SUSPICIOUS PALPABLE LUMP SHOULD BE BIOPSIED. Dictated by: Sandoval Encarnacion MD on 02/17/2022 at 07:37 Approved by: Sandoval Encarnacion MD on 02/17/2022 at 07:39 Normal [facility] Vital Signs Date Time Vital Sign Value Performing Clinician Tony jenkins 05-12-2023 10:13-0500 Diastolic blood pressure 72 mm[Hg] Sha Barreraholy [facility] 05-12-2023 10:13-0500 Heart rate 94 /min Sha Barreraholy [facility] 05-12-2023 10:13-0500 SaO2% (BldA) [Mass fraction] 90 % [facility] 05-12-2023 10:13-0500 Systolic blood pressure 130 mm[Hg] [facility] 05-03-2023 12:24-0500 Diastolic blood pressure 59 mm[Hg] Jena Hicks MD Work Phone: [facility] 05-03-2023 12:24-0500 Heart rate 86 /min Jena Hicks MD Work Phone: [facility] 05-03-2023 12:24-0500 Systolic blood pressure 103 mm[Hg] Jena Hicks MD Work Phone: [facility] 05-03-2023 12:14-0500 Body height 152.4 cm Jena Hicks MD Work Phone: [facility] 05-03-2023 12:14-0500 Body temperature 98.29 [degF] Jena Hicks MD Work Phone: [facility] 05-03-2023 12:14-0500 Body weight 65.82 kg Jena Hicks MD Work Phone: [facility] 05-03-2023 12:14-0500 Respiratory rate 16 /min Jena Hicks MD Work Phone: [facility] 05-03-2023 12:14-0500 SaO2% (BldA) [Mass fraction] 93 % Jena Hicks MD Work Phone: [facility] 09-06-2022 09:39-0400 Blood Pressure Location Dayron Davidsonan [facility] 09-06-2022 09:39-0400 Diastolic blood pressure 81 mm[Hg] Dayron Davidsonan [facility] 09-06-2022 09:39-0400 Heart rate 103 /min Dayron Davidsonan [facility] 09-06-2022 09:39-0400 SaO2% (BldA) [Mass fraction] 90 % Dayron Davidsonan [facility] 09-06-2022 09:39-0400 Systolic blood pressure 126 mm[Hg] Dayron Davidsonan [facility] Encounters Encounter Date Encounter Type Care Provider Facility Start: 05-30-2023 End: 05-30-2023 ambulatory FORREST SALAZAR Not Available Start: 05-12-2023 End: 05-13-2023 ambulatory Sha [place] [place]: 05-12-2023 End: 05-12-2023 Patient encounter procedure Sha Vallejo [facility] Start: 05-04-2023 Orders Only Jena Hicks MD Work Phone: [facility] Comment on above: 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); Bilateral carotid artery stenosis; Other disorders of arteries, arterioles and capillaries in diseases classified elsewhere (HCC) Start: 05-03-2023 End: 05-03-2023 ambulatory JENA HICKS Facility:[facility] Start: 05-03-2023 End: 05-03-2023 Office outpatient visit 25 minutes Jena Hicks MD Work Phone: [facility] Comment on above: 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) Start: 04-26-2023 Orders Only Jena Hicks MD Work Phone: [facility] Comment on above: Chest pain, unspecif ied type (Primary Dx) Start: 04-25-2023 Telephone encounter No Pcp CLINIC ASSISTANT NOC Comment on above: Appointment Start: 04-22-2023 Telephone encounter No One (Historic al) Referring Physician Comment on above: External Referrals/r esources Start: 04-20-2023 End: 04-20-2023 ambulatory FORREST SALAZAR Not Available Start: 03-23-2023 End: 03-24-2023 ambulatory Sha Val[place] [place]: 03-23-2023 End: 03-23-2023 Patient encounter procedure Sha Vallejo [facility] Start: 01-20-2023 End: 01-21-2023 ambulatory Sha Val[place]jo [place] Start: 01-20-2023 End: 01-20-2023 Patient encounter procedure Sha Vallejo [facility] Start: 10-11-2022 End: 10-12-2022 ambulatory Dayron Jorgensen [place] Start: 09-24-2022 End: 09-25-2022 ambulatory Dayron Jorgensen [place] Start: 09-24-2022 End: 09-24-2022 Patient encounter procedure Dayron Jorgensen [facility] Start: 09-06-2022 End: 09-07-2022 ambulatory Dayron Jorgensen [place] Start: 09-06-2022 End: 09-06-2022 Patient encounter procedure Dayron Jorgensen [facility] Start: 08-02-2022 End: 08-03-[address] MARCK TATE . Facility:[facility] Start: 07-28-2022 End: 07-28-[address] MARCK TATE . Facility:[facility] Start: 07-14-2022 End: 07-15-[address] MARCK TATE . Facility:[facility] Start: 04-30-2022 End: 05-01-[address] MARCK TATE . Facility:[facility] Start: 02-16-2022 End: 02-17-[address] MARCK TATE . Facility: Start: 06-17-2017 End: 06-18-2017 Ambulatory DEFAULT PHYSICIAN Facility:[facility] Plan of Treatment Date Care Activity Detail Author Start: 07-04-2029 Urine microalbumin profile DTaP,Tdap,Td Vaccine (2 - Td or Tdap) [facility] Start: 01-21-2023 Influenza vaccination Influenza Vacc ine (#1) [facility] Start: 05-23-2022 Advance Directive Discussion Advance Directive Discussion [facility] Start: 05-23-2022 Depression Assessment Depression Ass essment [facility] Start: 05-18-2017 Pneumococcal Vaccine : 65+ (2 - PPSV23 or PCV20) Pneumococcal Vaccine: 65+ (2 - PPSV23 or PCV20) [facility] Start: 2006 Bone Density Screening Bone Density Screening [facility] Start: 2006 Pneumococcal Vaccine : 65+ (1 - PCV) Pneumococcal Vaccine: 65+ (1 - PCV) [facility] Start: 2006 Screening for osteoporosis Bone Density Screening [facility] Start: 2001 RSV Vaccine (1 - 1-d ose 60+ series) RSV Vaccine (1 - 1-dose 60+ series) [facility] Start: 1991 Shingrix Vaccine (1 of 2) Shingrix Vaccine (1 of 2) [facility] Start: 1986 Diabetes Screening Diabetes Screenin g [facility] Start: 1941 Covid-19 Vaccine (#1) Covid-19 Vacci ne (#1) [facility] End: 05-25-2024 Ct angio abd&plvis cntrst mtrl w/wo cntrst img CTA ABD/PEL WO/W IVCON Radiology Routine Chest pain, unspecified type 1 Occurrences starting 04/26/2023 until 05/25/2024 [facility] Work Phone: Comment on above: 1 Occurrences starti ng 04/26/2023 until 05/25/2024 End: 06-02-2024 Ct angio abd&plvis cntrst mtrl w/wo cntrst img CTA ABD/PEL WO/W IVCON Radiology Routine 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 Occurrences starting 05/04/2023 until 06/02/2024 [facility] Work Phone: Comment on above: 1 Occurrences starti ng 05/04/2023 until 06/02/2024 End: 05-25-2024 Ct angiography chest w/contrast/noncontrast CTA CHEST (NONGATED) WO/W IVCON Radiology Routine Chest pain, unspecified type 1 Occurrences starting 04/26/2023 until 05/25/2024 [facility] Work Phone: Comment on above: 1 Occurrences starti ng 04/26/2023 until 05/25/2024 End: 06-02-2024 Ct angiography chest w/contrast/noncontrast CTA CHEST (NONGATED) WO/W IVCON Radiology Routine 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 Occurrences starting 05/04/2023 until 06/02/2024 [facility] Work Phone: Comment on above: 1 Occurrences starti ng 05/04/2023 until 06/02/2024 End: 05-04-2024 PVR ANK/HILL/TOE AWAIS VAS LAB PVR ANK/HILL/TOE [facility] Vascular Lab Routine 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) Other disorders of arteries, arterioles and capillaries in diseases classified elsewhere (HCC) 1 Occurrences starting 05/04/2023 until 05/04/2024 [facility] Work Phone: Comment on above: 1 Occurrences starti ng 05/04/2023 until 05/04/2024 End: 05-04-2024 US CAROTID ARTERIES AWAIS VAS LAB US CAROTID ARTERIES AWAIS VAS LAB Vascular Lab Routine Bilateral carotid artery stenosis 1 Occurrences starting 05/04/2023 until 05/04/2024 [facility] Work Phone: Comment on above: 1 Occurrences starti ng 05/04/2023 until 05/04/2024 [facility] Payers Date Payer Category Payer [employer] others) [id number] 2006 Medicare MEDICARE MEDICAR E A AND B [id number] 2006-Present [phone] [place] [address] Medicare [id number] 1959 [employer] ( and others) [id number] 1959 Medicare [id number] 1940 Unknown [id number] [id number]. 2.593 1941 Unknown [id number] 2..[id number]. 2.593 1941 Unknown [id number] 2..840.1.767573.3.579. 2.593 1941 Unknown [id number] 2.16.840.1.567537.3.579. 2.593 1941 Unknown [id number] 2.16.840.1.505271.3.579. 2.593 1941 Unknown [id number] 2.16.840.1.683872.3.579. 2.727 1941 Unknown [id number] 2.16.840.1.934771.3.579. 2.727 1941 Unknown [id number] 2.16.840.1.435720.3.579. 2.727 1941 Unknown [id number] 2.16.840.1.771039.3.579. 2.727 1941 Unknown [id number] 2.16.840.1.371353.3.579. 2.727 1941 Unknown [id number] 2.16.840.1.086933.3.579. 2.727 1941 Unknown [id number] 2.16.840.1.523058.3.579. 2.1259 1941 Unknown [id number] 2.16.840.1.706465.3.579. 2.1259 Unknown Social History Date Type Detail Facility Start: 09-06-2022 End: 05-12-2023 Tobacco smoking status Heavy tobacco smoker (finding) [facility] Start: 05-03-2023 Sex Assigned At Female F [facility] Tobacco smoking stat [facility] Tobacco smoking consumption unknown [facility] Start: 1940 Sex Assigned At Not on file [facility] Start: 05-23-1956 Tobacco smoking stat [facility] Smokes tobacco daily [facility] Start: 05-23-1956 History of tobacco use Cigarette Smo ker [facility] Start: 05-03-2023 Cigarettes smoked current (pack per day) - Reported 1.5 [facility] Start: 05-03-2023 Tobacco use and exposure Smokeless tobacco non-user [facility] Start: 05-03-2023 Alcohol intake Current drinke r of alcohol (finding) [facility] National Score (1-10 0), lower number is lower risk 87 [facility] Start: 05-03-2023 Alcohol Comment football season [facility] Functional Status Date Assessment Result Facility 05-12-2023 Functional Status N/A [facility] 09-06-2022 Functional Status No [facility] Clinical Notes 03-21-2023 to 05-26-2023 Jena Hicks MD - 05/03/2023 12:42 PM ESTTelephone Encounter - Alondra Quiros - 04/25/2023 4:18 PM ESTTelephone Encounter - Des Senior Media PlannerPatrizia gaviria - 04/22/2023 10:05 AM ESTRadiologyRadiology Note Date & Type Note Facility 05-26-2023 Note Patient Outreach ([facility]) BETH STARKEY ([id number]) 1940 F Date Time Provider Department 05/26/23 EVANGELINA BURNETT During your visit today, we recorded the following information about you: Evangelina Burnett 05/26/2023 10:01 AM Signed Incidental Lung Nodule Enrollment Outreach attempt: 1st Attempt Outreach status: Complete Enrolled in Lung Nodule program: No Declined reason: Finding reviewed deemed low risk. No further work up recommended at this time. Letter/brochure notifying patient sent to patient?s home mailing address. Lung Nodule outreach: No outreach - Very small nodule, letter and brochure sent Lung Nodule Program Location: [place] Allergies As of Date: 05/26/2023 (No Known Allergies) Date Reviewed: 05/03/2023 Reviewed by: Nadine Cummins RN - Fully Assessed Prescriptions as of 05/26/2023 - glimepiride (AMARYL) 2 mg tablet Take 2 mg by mouth once daily. - lisinopril (ZESTRIL) 40 mg tablet Take 1 tablet by mouth every afternoon. - ezetimibe (ZETIA) 10 mg tablet Take 1 tablet by mouth every afternoon. - amLODIPine (NORVASC) 5 mg tablet Take 1 tablet by mouth every afternoon. - cetirizine (ZYRTEC) 10 mg tablet Take 1 tablet by mouth every afternoon. - pramipexole (MIRAPEX) 1 mg tablet Take 1 tablet by mouth every afternoon. - omeprazole (PRILOSEC) 20 mg capsule Take 20 mg by mouth once daily. - metFORMIN (GLUCOPHAGE) 500 mg tablet Take 1 tablet by mouth every 12 hours. - WIXELA INHUB 100-50 mcg/dose inhaler Inhale 1 Puff as instructed two times a day. - multivitamin (DAILY MULTI-VITAMIN) tablet Take 1 tablet by mouth once daily. - melatonin 10 mg tab Take 10 mg by mouth daily at bedtime. - calcium carbonate (CALCIUM 500 ORAL) Take 500 mg by mouth once daily. - Cholecalciferol, Vitamin D3, (VITAMIN D) 25 mcg (1,000 unit) cap Take 1,000 Units by mouth once daily. - Ascorbic Acid (VITAMIN C) 500 mg chew Take 500 mg by mouth once daily. - BABY ASPIRIN ORAL Take 81 mg by mouth once daily. Problem List As Of Date: 05/26/2023 (None) Encounter Status:Closed by EVANGELINA BURNETT on 05/26/23 [facility] 05-26-2023 Note HNO ID: [id number] Author: ?, ?, ? Service: ? Author Type: ? Type: Progress Notes Filed: 05/26/2023 10:01 Note Text: Incidental Lung Nodule Enrollment Outreach attempt: 1st Attempt Outreach status: Complete Enrolled in Lung Nodule program: No Declined reason: Finding reviewed deemed low risk. No further work up recommended at this time. Letter/brochure notifying patient sent to patient?s home mailing address. Lung Nodule outreach: No outreach - Very small nodule, letter and brochure sent Lung Nodule Program Location: [facility] 05-18-2023 Note Patient Outreach ([facility]) BETH STARKEY ([id number]) 1940 F Date Time Provider Department 05/18/23 CROW BELLO [facility] During your visit today, we recorded the following information about you: Crow Bello, CLINIC ASSISTANT.FELLING BUCKING SUPERVISOR 05/18/2023 11:12 AM Signed Incidental Lung Nodule Enrollment Outreach attempt: 1st Attempt Outreach status: Complete Enrolled in Lung Nodule program: Referred Lung Nodule outreach: No outreach - Very small nodule, letter and brochure sent Lung Nodule Program Location: [place] Allergies As of Date: 05/18/2023 (No Known Allergies) Date Reviewed: 05/03/2023 Reviewed by: Nadine Cummins RN - Fully Assessed Primary Visit Diagnosis:Lung nodule [R91.1] Prescriptions as of 05/18/2023 - glimepiride (AMARYL) 2 mg tablet Take 2 mg by mouth once daily. - lisinopril (ZESTRIL) 40 mg tablet Take 1 tablet by mouth every afternoon. - ezetimibe (ZETIA) 10 mg tablet Take 1 tablet by mouth every afternoon. - amLODIPine (NORVASC) 5 mg tablet Take 1 tablet by mouth every afternoon. - cetirizine (ZYRTEC) 10 mg tablet Take 1 tablet by mouth every afternoon. - pramipexole (MIRAPEX) 1 mg tablet Take 1 tablet by mouth every afternoon. - omeprazole (PRILOSEC) 20 mg capsule Take 20 mg by mouth once daily. - metFORMIN (GLUCOPHAGE) 500 mg tablet Take 1 tablet by mouth every 12 hours. - WIXELA INHUB 100-50 mcg/dose inhaler Inhale 1 Puff as instructed two times a day. - multivitamin (DAILY MULTI-VITAMIN) tablet Take 1 tablet by mouth once daily. - melatonin 10 mg tab Take 10 mg by mouth daily at bedtime. - calcium carbonate (CALCIUM 500 ORAL) Take 500 mg by mouth once daily. - Cholecalciferol, Vitamin D3, (VITAMIN D) 25 mcg (1,000 unit) cap Take 1,000 Units by mouth once daily. - Ascorbic Acid (VITAMIN C) 500 mg chew Take 500 mg by mouth once daily. - BABY ASPIRIN ORAL Take 81 mg by mouth once daily. Problem List As Of Date: 05/18/2023 (None) Letter Text Encounter Status:Closed by CROW BELLO on 05/18/23 [facility] 05-18-2023 Note HNO ID: [id number] Author: Crow Bello, CHELSEA.FELLING BUCKING SUPERVISOR Service: ? Author Type: Nurse Practitioner Type: Progress Notes Filed: 05/18/2023 11:12 AM Note Text: Incidental Lung Nodule Enrollment Outreach attempt: 1st Attempt Outreach status: Complete Enrolled in Lung Nodule program: Referred Lung Nodule outreach: No outreach - Very small nodule, letter and brochure sent Lung Nodule Program Location: [facility] 05-03-2023 Note HNO ID: [id number] Author: Nadine Cummins RN Service: Radiology Author Type: Registered Nurse Type: Progress Notes Filed: 05/03/2023 1:17 PM Note Text: Radiology Service Progress Note DATE OF SERVICE: May 03, 2023 TIME: 1:00 PM PATIENT WEIGHT: 145LBS PATIENT IDENTITY VERIFICATION COMPLETED USING TWO (2) STANDARD IDENTIFIERS: Name and Date of confirmed by patient verbally and Name and Date of confirmed by identification band. FALL SCREENING: Has the patient had 2 falls in the last year or 1 fall with injury or currently using an Ambulatory Assistive Device (Walker, Cane, Wheelchair, Crutches, etc.)? No PATIENT GENDER DATA: Female. status: : No status: NO. ALLERGIES: Reviewed and unchanged CONTRAST ALLERGY: No EXAM: CT -CONTRAST INDUCED NEPHROPATHY RISK FACTORS: Patient age > 60 years and Diabetic: Yes. Current medication(s): Metformin and Geimepiriade. Patient currently has insulin pump?: No. CREATININE: Creatinine (POCT) Date Value Ref Range Status 05/03/2023 0.70 0.7 - 1.4 mg/dL Final eGFR (POCT) Date Value Ref Range Status 05/03/2023 >60 mL/min/1.73 m2 Final P.O.C.T. RESULTS: POC done: Yes, See Lab Tab May 03, 2023 TREATMENT: No Hydration needed. IV SITE: Ambulatory: A peripheral IV was started in the Left antecubital site with a Angio cath: 20 gauge. and A Saline lock was inserted per protocol IV SITE APPEARANCE: Clean,Dry and Intact SIGNATURE: Nadine Cummins RN PATIENT NAME: Beth Starkey DATE: May 03, 2023 TIME: 1:00 PM [facility] 05-03-2023 Note HNO ID: [id number] Author: Kandy Aragon RT(R) Service: Radiology Author Type: Technologist Type: Progress Notes Filed: 05/03/2023 1:19 PM Note Text: Radiology Service Progress Note PATIENT NAME: Beth Starkey DATE OF SERVICE: May 03, 2023 TIME: 1:19 PM PATIENT IDENTITY VERIFICATION COMPLETED USING TWO (2) IDENTIFIERS: Name and Date of confirmed by patient verbally. FALL SCREENING: Has the patient had 2 falls in the last year or 1 fall with injury or currently using an Ambulatory Assistive Device (Walker, Cane, Wheelchair, Crutches, etc.)? No PATIENT GENDER DATA: Female. status: : No status: NO. PATIENT RELEVANT IMPLANT DATA REVIEWED: Yes RADIOLOGY DEPARTMENT: CT; Exam(s) Completed: Cardiac PERIPHERAL IV DATA: Site assessment: Clean,Dry and Intact, Site disposition Discontinued SIGNED BY: RT Tess(R) May 03, 2023 1:19 PM [facility] 05-03-2023 History and physical note Heart , Vascular and Thoracic [place] DEPARTMENT OF VASCULAR SURGERY OUTPATIENT VISIT DATE May 03, 2023 OUTPATIENT VISIT TYPE CONSULTATION SERVICE DATE: 05/03/2023 SERVICE TIME: 12:42 PM PRIMARY CARE PHYSICIAN: No primary care provider on file. REFERRING PROVIDER: MARCK TATE MD Consult requested for an opinion regarding the evaluation and treatment of the above. My final impression and recommendations will be communicated back to the requesting physician by way of the shared medical record or letter via [place] mail. CHIEF COMPLAINT: Thoracoabdominal Aortic aneurysm HISTORY OF PRESENT ILLNESS: Vascular consultation at the request of Dr. Md Marck Tate. A copy of this consultation note will be provided to the requesting physician by way of shared Medical record or letter to requesting physician via US mail. Ms. Starkey is a 83 year old female who is seen today for evaluation and management of an abdominal aortic aneurysm. Patient patient states that she is still currently smoking 1 to 1/2 pack a day this is likely up from when she started smoking at the age of 17. She admits to shortness of breath when she walks quickly but states that she is able to walk slowly without shortness of breath. She is unable to walk 2 flights of stairs without shortness of breath. Patient states that at an evaluation in October 2022 she was told that she had an aneurysm and with recent CAT scan imaging the aneurysm has grown. She is worried as her brother recently of a ruptured aneurysm. She denies any fevers, weight loss, or night sweats. PAST MEDICAL HISTORY Diagnosis Date AAA (abdominal aortic aneurysm) (HCC) Diabetes mellitus (HCC) HLD (hyperlipidemia) HTN (hypertension) Ovarian cyst PAST SURGICAL HISTORY Procedure Laterality Date CORONARY STENT INITIAL 1997 2x REMOVAL GALLBLADDER SOCIAL HISTORY: Social History Tobacco Use Smoking status: Every Day Packs/day: 1.50 Years: 66.00 Additional pack years: 0.00 Total pack years: 99.00 Types: Cigarettes Start date: 05/23/1956 Smokeless tobacco: Never Substance Use Topics Alcohol use: Yes Comment: football season Drug use: Never FAMILY HISTORY Problem Relation Age of Onset Aneurysm Brother aorta ruptured MEDICATIONS: glimepiride (AMARYL) 2 mg tablet Take 2 mg by mouth once daily. lisinopril (ZESTRIL) 40 mg tablet Take 1 tablet by mouth every afternoon. ezetimibe (ZETIA) 10 mg tablet Take 1 tablet by mouth every afternoon. amLODIPine (NORVASC) 5 mg tablet Take 1 tablet by mouth every afternoon. cetirizine (ZYRTEC) 10 mg tablet Take 1 tablet by mouth every afternoon. pramipexole (MIRAPEX) 1 mg tablet Take 1 tablet by mouth every afternoon. omeprazole (PRILOSEC) 20 mg capsule Take 20 mg by mouth once daily. metFORMIN (GLUCOPHAGE) 500 mg tablet Take 1 tablet by mouth every 12 hours. WIXELA INHUB 100-50 mcg/dose inhaler Inhale 1 Puff as instructed two times a day. multivitamin (DAILY MULTI-VITAMIN) tablet Take 1 tablet by mouth once daily. melatonin 10 mg tab Take 10 mg by mouth daily at bedtime. calcium carbonate (CALCIUM 500 ORAL) Take 500 mg by mouth once daily. Cholecalciferol, Vitamin D3, (VITAMIN D) 25 mcg (1,000 unit) cap Take 1,000 Units by mouth once daily. Ascorbic Acid (VITAMIN C) 500 mg chew Take 500 mg by mouth once daily. BABY ASPIRIN ORAL Take 81 mg by mouth once daily. ALLERGIES: ALLERGIES No Known Allergies REVIEW OF SYSTEM: Constitutional: No weight loss, malaise or fevers. HEENT: Negative for frequent or significant headaches, No changes in hearing or vision, no nose bleeds or other nasal problems Respiratory: Negative for cough, wheezing, or shortness of breath. Positive for shortness of breath on exertion Cardiovascular: Negative for chest pain, leg swelling or palpitations, claudication Gatrointestinal: Negative for abdominal discomfort, blood in stools or black stools or change in bowel habits Genitourinary: No history of dysuria, frequency, or incontinence and No difficulty urination, nocturia >1 times per night or hematuria Musculoskeletal: Negative for joint pain or swelling, back pain or muscle pain Endocrine: Negative for cold or heat intolerance, polyuria, polydipsia and goiter Hematology/Lymphatic: Negative for prolonged bleeding, bruising easily or swollen nodes Neurologic: No history or headaches, syncope, paralysis, seizures or tremors Integumentary: Negative for lesions, rash, and itching. PHYSICAL EXAM: VITALS: BP 103/59[LA[ Pulse 86 Temp (Src) 98.3 (Oral) Resp 16 Ht 5' 0 [with gym shoes on[ (1.52m) Wt 145 lb 1.6 oz (65.8kg) SpO2 93% BMI 28.34 kg/(m^2). General: Alert and oriented, No acute distress, Obese Integumentary: Normal color, no rash, no lesions. HEENT: EOM, pupils equal, round and reactive. Cardiovascular: Normal S1 & S2, no rubs, murmurs or gallops. No JVD., Pulse regular. Lungs: Normal breath sounds, no wheezes or crackles. Abdomen: Soft, non-tender, no rigidity. Extremities: No deformity, no edema or tenderness, no joint swelling or clubbing. Neurological: Normal cognition and motor skills. 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 PLAN and RECOMMENDATIONS: No current indication for operative repair as patient does not meet size criteria Encourage her to stop smoking as with her shortness of breath with ambulation her risk of pulmonary complication is quite high Had an extensive discussion with her regarding her overall risk of an operation given her age, smoking status, and other comorbidities and at this time she still would want a repair if ruptured even with the increased risks of complications. Plan for CTA in 6 months for evaluation of growth and clinical follow-up Encourage optimal medical therapy with ASA, statin, smoking cessation, and blood pressure control. SIGNATURE: Jena Hicks MD PATIENT NAME: Beth Starkey DATE: May 03, 2023 TIME: 12:42 PM Medical Decision Making: Problems: Moderate: 2+ stable chronic illnesses and New problem with uncertain prognosis Data: Unique source(s) for external note(s) reviewed: 1 Unique test result(s) reviewed: 1 Unique test(s) ordered: 1 Risk: Moderate: Drug management High: Decision on elective major surgery w/ risk factors Medical Decision Making Level: 4 - Moderate documented in this encounter [facility] 04-25-2023 Miscellaneous Notes Reason for call: Ms Starkey called,and she would like to schedule an appointment with vascular surgery Referred by Dr Judit Tate Home and cell number: [phone] Diagnosis: AAA Kind Regards Noirin documented in this encounter [facility] 04-22-2023 Miscellaneous Notes Patient: Beth Starkey Date of : 1940 Patient phone number: [phone] Referring Provider for the encounter: Marck Tate MD Requesting Provider: N/A Reason for requesting visit (RFV/signs and symptoms/diagnosis): Sent Telephone Encounter - updated tracking. Person calling: caregiver: Patrizia Return call to: self Medical Records/Insurance Card scanned into [employer]: Yes Comments: N/A documented in this encounter [facility] 03-23-2023 Evaluation + Plan note Diagnostic Tests PendingCreatinine 03/23/23 Future Scheduled TestsCTA Abd Aorto-bilat/ iliofemoral runoff 03/22/23 [facility] 03-22-2023 Evaluation + Plan note Future Scheduled TestsCTA Abd Aorto-bilat/ iliofemoral runoff 03/22/23 [facility] 03-21-2023 Note History of Present I llness Beth Starkey is an 82-year-old female who presents today for a new patient evaluation. She is accompanied by his brother and his brother's girlfriend. Beth Starkey has a history of a Thoracic aortic aneurysm. She was seen by Dr. Jorgensen in 09/2022. At that time, she was informed that her aneurysm was 5.5 cm and would need to be operated on at 6 cm. Beth Starkey denies having a clinical account specialist at this time. She denies chest pain or dyspnea. She does have some dyspnea on exertion. Beth Starkey has a history of 2 stents placed in her heart by Dr. Wells at [place]. Review of Systems Constitutional: no fever, no chills, no weakness, no fatigue Respiratory: dyspnea on exertion, no cough, no orthopnea, no wheezing Cardiovascular: no chest pain, no palpitations, no edema Neuro: no dizziness, no lightheadedness, no syncope Additional ROS info: Except as noted in the above Review of Systems and in the History of Present Illness all other systems have been reviewed and are negative or noncontributory. Physical Exam General: alert, no acute distress Neck: Trachea midline, no JVD, no bruit Cardiovascular: regular rate and rhythm, no murmur, normal peripheral perfusion Respiratory: Lungs CTA, respirations non labored Extremities: no edema, no deformity, no trauma Neurological: oriented x 4, LOC appropriate for age, sensation equal & normal bilaterally, speech normal Skin: warm, dry intact Assessment/Plan Beth Starkey is an 82-year-old female who presents today for aneurysm. Follow up in 3 months. 1. Thoracoabdominal aortic aneurysm (TAAA) without rupture (I71.60: Thoracoabdominal aortic aneurysm, without rupture, unspecified) I will order a repeat CT scan in 03/2023. If it grows, I will communicate directly with Dr. Jorgensen. Portions of this record may have been created with voice recognition artificial intelligence software, specifically [facility], [email or web address] and or [employer]. Substitutions may have occurred with voice recognition and artificial intelligence software. ATTESTATION: Documentation services were performed after patient or guardian consented to allow [employer] to record this visit. SANTOS practice support specialist and provider reviewed before signing. SANTOS: Beth Sanders Follow-up No qualifying data available Problem List/Past Medical History Ongoing No qualifying data Historical No qualifying data Medications amLODIPine 5 mg Tab cetirizine 10 mg Tab, 10 mg= 1 tab(s), Oral, Daily glimepiride 2 mg Tab lisinopril 10 mg Tab, 10 mg= 1 tab(s), Oral, Daily metformin 500 mg Tab omeprazole 20 mg Cap-DR, 20 mg= 1 cap(s) Wixela Inhub 100 mcg-50 mcg inhalation powder Allergies No Known Medication Allergies Social History Tobacco - High Risk, 09/06/2022 10 or more cigarettes (1/2 pack or more)/day in last 30 days Tobacco Use:. Cigars, Yes, 10/11/2022 Family History CHF - Congestive heart failure: Mother. Brenda Gehrig's disease: Father. [facility] Comment on above: Result Comment: Elec tronically Signed By: Genevieve CURRIE, Sha Bustos\.br\Date and Time Signed: 03/21/23 11:20 EDT\.br\Electronically Co-Signed By: Beth Sanders\.br\Date and Time Co-Signed: 01/20/23 12:18 EDT Evaluation + Plan note Future Appointments Appointment Date:10/11/2022 10:00:00 AM Scheduled Provider:Dayron Jorgensen MD [facility] Appointment Type:Vascular Follow Up ([facility]) Future Scheduled TestsCTA Abdomen and Pelvis 09/06/22CTA Chest 09/06/22 [facility] Evaluation + Plan note Future Appointments Appointment Date:10/11/2022 10:00:00 AM Scheduled Provider:Dayron Jorgensen MD [facility] Appointment Type:Vascular Follow Up ([facility]) [facility] Evaluation + Plan note Future Scheduled TestsCTA Abd Aorto-bilat/ iliofemoral runoff 03/22/23 [facility] Evaluation note Diagnosis Chest pain, unspecified type- [facility] 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) Other disorders of arteries, arterioles and capillaries in diseases classified elsewhere (HCC) Procedures PVR ANK/HILL/TOE AWAIS VAS LAB NON-INVAS PHYSIOLOGIC STD EXTREMITY ART 2 LEVEL Jena Hicks MD [address] [place] [address] [place] [address] Referral ID Status Reason Start Date Expiration Date Visits Requested Visits Authorized [id number] Authorized Auto-Generat ed Referral 3 05/03/2024 1 1 * MRI/CT (Routine) - Authorized Specialty Diagnoses / Procedures Referred By Manjula jovel Referred To Contact CT IMAGING Diagnoses 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) Procedures CTA ABD/PEL WO/W IVCON CT ANGIO ABD&PLVIS CNTRST MTRL W/WO CNTRST JIMMIEGES Jena Hicks MD [address] [place] [address] Ct Imaging [place] [address] Referral ID Status Reason Start Date Expiration Date Visits Requested Visits Authorized [id number] Authorized Auto-Generat ed Referral 3 06/02/2024 1 1 * MRI/CT (Routine) - Authorized Specialty Diagnoses / Procedures Referred By Contac t Referred To Contact CT IMAGING Diagnoses 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) Procedures CTA CHEST (NONGATED) WO/W IVCON CT ANGIOGRAPHY CHEST W/CONTRAST/NONCONTRAST Jena Hicks MD [address] [place] [address] [address] Imaging [place] [address] Referral ID Status Reason Start Date Expiration Date Visits Requested Visits Authorized [id number] Authorized Auto-Generat ed Referral 3 06/02/2024 1 1 * Outpatient Procedure (Routine) - Authorized Specialty Diagnoses / Procedures Referred By Manjula t Referred To Contact [facility] Diagnoses Bilateral carotid artery stenosis Procedures US CAROTID ARTERIES AWAIS VAS LAB DUPLEX SCAN EXTRACRANIAL ART COMPL BI STUDY Jena Hicks MD [address] [place] [address] [facility] [place] [address] Referral ID Status Reason Start Date Expiration Date Visits Requested Visits Authorized [id number] Authorized Auto-Generat ed Referral 3 05/03/2024 1 1 [facility] Summary Purpose Family History No Family History Records FoundNo Family History Records Found No data available for this section No data available for this section No Family History Records FoundNo Family History Records FoundNo Family History Records Found Advance Directives No Advanced Directives Records FoundNo Advanced Directives Records FoundNo Advanced Directives Records FoundNo Advanced Directives Records FoundNo Advanced Directives Records Found Reason for Referral Specialty Diagnoses / Procedures Referred By Contac t Referred To Contact CT IMAGING Diagnoses Chest pain, unspecified type Procedures CTA ABD/PEL WO/W IVCON CT ANGIO ABD&PLVIS CNTRST MTRL W/WO CNTRST Jena Todd MD [address] [place] [address] [address] Imaging [place] [address] Referral ID Status Reason Start Date Expiration Date Visits Requested Visits Authorized [id number] Authorized Auto-Generat ed Referral 04/26/2023 05/25/2024 1 1 Specialty Diagnoses / Procedures Referred By Manjula t Referred To Contact CT IMAGING Diagnoses Chest pain, unspecified type Procedures CTA CHEST (NONGATED) WO/W IVCON CT ANGIOGRAPHY CHEST W/CONTRAST/NONCONTRAST Jena Hicks MD [id number] [facility] [place] [address] Referral ID Status Reason Start Date Expiration Date Visits Requested Visits Authorized [id number] Authorized Auto-Generat ed Referral 04/26/2023 05/25/2024 1 1 Additional Source Comments INFORMATION SOURCE (unrecogn ized section and content) DATE CREATED AUTHOR 11/14/2017 [facility] DATE CREATED AUTHOR AUTHOR'S ORGANIZ ATION 08/09/2022 [facility] DATE CREATED AUTHOR AUTHOR'S ORGANIZ ATION 05/27/2023 [facility] DATE CREATED AUTHOR AUTHOR'S ORGANIZ ATION 05/30/2023 [facility] DATE CREATED AUTHOR AUTHOR'S ORGANIZ ATION 05/31/2023 [facility] EPIC Patient Care team informatio n (unrecognized section and content) Pan Pusher Relationship Specialty Start Date End Date Marck Tate MD [address] [place] [address] Family [facility] 04/22/23 Pan Pusher Relationship Specialty Start Date End Date Marck Tate MD [address] [place] [address] [facility] 04/22/23 Pan Pusher Relationship Specialty Start Date End Date Marck Tate MD [address] [place] [address] Family [facility] 04/22/23 Pan Pusher Relationship Specialty Start Date End Date Marck Tate MD [address] [facility] [place] [address] Family Medicine 04/22/23 Source Comments (unrecognize d section and content) In the event this informatio n is protected by the Federal Confidentiality of Alcohol and Drug Abuse Patient Records regulations: The Federal rules restrict any use of the information to criminally investigate or prosecute any alcohol or drug abuse patient.[facility] the event this information is protected by the Federal Confidentiality of Alcohol and Drug Abuse Patient Records regulations: The Federal rules restrict any use of the information to criminally investigate or prosecute any alcohol or drug abuse patient.[facility] the event this information is protected by the Federal Confidentiality of Alcohol and Drug Abuse Patient Records regulations: The Federal rules restrict any use of the information to criminally investigate or prosecute any alcohol or drug abuse patient.[facility] the event this information is protected by the Federal Confidentiality of Alcohol and Drug Abuse Patient Records regulations: The Federal rules restrict any use of the information to criminally investigate or prosecute any alcohol or drug abuse patient.[facility] the event this information is protected by the Federal Confidentiality of Alcohol and Drug Abuse Patient Records regulations: The Federal rules restrict any use of the information to criminally investigate or prosecute any alcohol or drug abuse patient.[facility] Reason for Visit (unrecogniz ed section and content) Reason Comments External Referrals/resources Reason Comments Appointment Reason Comments Consult FOR RECORDS PERTAINING TO PATIENTS WHO ARE OR HAVE BEEN ENROLLED IN A CHEMICAL DEPENDENCY/SUBSTANCEABUSE PROGRAM, SOME INFORMATION MAY BE OMITTED. This clinical summary was aggregated from multiple sources. Caution should be exercised in using it in the provision of clinical care. This summary normalizes information from multiple sources, and as a consequence, information in this document may materially change the coding, format and clinical context of patient data. In addition, data may be omitted in some cases. CLINICAL DECISIONS SHOULD BE BASED ON THE PRIMARY CLINICAL RECORDS. [facility] [employer] [facility]. provides no warranty or guarantee of the accuracy or completeness of information in this document.
[2023-06-03 08:12] LABS: Cancer Antigen (CA) 125 14.5 U/mL (0.0-38.1)
== END 2023-06-01 14:17 | disposition home or self-care (01) ==
LOC: US 14:16
PROVIDERS: PCP Family Medicine; Visit Provider Obstetrics & Gynecology
DX: N83.202 Unspecified ovarian cyst, left side (principal); N83.292 Other ovarian cyst, left side
CPT/HCPCS: 36415; 76830; 76856; 86304

== ENCOUNTER 2023-06-20 09:14 | Outpatient (OUT) | payer MEDICARE, OTHER, SELFPAY ==
--- OUTSIDE RECORDS SUMMARY | 2023-06-20 09:18 | XMS_ITS | CCD ---
Author Name Unknown Address [address] [place] [address] Organization [facility] Care Team Providers Care Staff Cytotechnologist Name Role Phone PHYSICIAN, DEFAULT Unavailable Unavailable PHYSICIAN, DEFAULT Unavailable Unavailable MARCK TATE Unavailable Unavailable HOY ., DR ACHARYA Admitting Unavailable HOY ., DR ACHARYA Attending Unavailable HOY ., DR ACHARYA Primary Care Unavailable HOY ., DR ACHARYA Consulting Unavailable LITTLE SWITZERLAND, DR SANDOVAL Ferguson Consulting Unavailable HOY ., [...] Jameel, Mohamed FManish Attending Unavailable Jameel, Mohamed F. 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 She has reached out to the [facility] and has been assigned a doctor [...] However, during her recent visit to the [facility], she was informed that her aorta [...] routine follow-up. She had an evaluation at [facility] for her aneurysm. She also got a CT angiogram with runoff. This showed the aneurysm is 5.9 cm by testing at [facility], but measured 5.3 cm. As per patient at [facility], she has an occluded right SFA, [...] with voice recognition artificial intelligence software, specifically [employer], [employer] and or [employer]. Substitutions may have occurred with voice recognition and artificial intelligence software. Documentation services were performed after patient or guardian consented to allow [facility] [facility] to record this visit. SANTOS military equipment specialist and provider reviewed before signing. SANTOS: [...] Known Medicat (more content not included)... Normal [facility] Comment on above: Result Comment: Elec tronically Signed By: Genevieve CURRIE, Sha Bustos\.br\Date and Time Signed: 05/29/23 20:33 EST\.br\Electronically Co-Signed By: Annmarie Mccray.br\Date and Time Co-Signed: 05/12/23 12:52 EST Physician Orderon 05-13-2023 Physician Order [id number] 5#1.00TIFF Normal [facility] CNOVon 05-03-2023 CNOV Office Visit (VASSMN) BETH STARKEY ([id number]) 1940 F Date Time Provider Department 05/03/23 12:00 PM JENA HICKS During your visit today, we recorded the following information about you: Temperature Pulse Respiration Blood pressure 98.3 degrees 86/minute 16/minute 103/59 Weight Height 65.8 kg 1.524 m Jena Hicks MD 05/03/2023 3:31 PM Signed [facility] [employer] DEPARTMENT OF VASCULAR SURGERY OUTPATIENT VISIT DATE [...] PHYSICAL E (more content not included)... Normal [facility] CTA ABD/PELV WO/W IVCONon CTA ABD/PELV WO/W IVCON * * *Final Report* * * DATE OF EXAM: May 03 2023 1:27PM [facility] - CTA ABD/PELV WO/W IVCON / [...] stable BONES: degenerative changes of the spine Field Supervisor (topogram) images: No additional findings. IMPRESSION: * [...] (more content not included)... Invalid Interpretation Code [facility] CTA CHEST (NONGATED) WO/W IV CONon 05-03-2023 CTA CHEST (NONGATED) WO/W IVCON * * *Final Report* * * DATE OF EXAM: May 03 2023 1:27PM [facility] [place]124 - CTA CHEST (NONGATED) WO/W IVCON [...] stable BONES: degenerative changes of the spine Field Supervisor (topogram) images: No additional findings. IMPRESSION: * [...] (more content not included)... Invalid Interpretation Code [facility] HISTORY PHYSICALon HISTORY PHYSICAL HNO ID: [id number] Author: Jena Hicks MD Service: ? Author Type: Physician Type: HANDP Filed: 05/03/2023 3:31 PM Note Text: [facility] [employer] DEPARTMENT OF VASCULAR SURGERY OUTPATIENT VISIT DATE [...] EOM, pupils (more content not included)... Normal [facility] Charlie 04-25-2023 CNPN Telephone (PODCCP) BETH STARKEY ([id number]) 1940 F Date Time Provider Department 04/25/23 NO PCP PODCCP During your visit today, we recorded the following information about you: Alondra Quiros 04/25/2023 4:23 PM Signed Reason for call: Ms Starkey called,and she would like to schedule an appointment with vascular surgery Referred by Dr Judit [facility] and cell number: [phone] Diagnosis: AAA Kind Regards Alondra Allergies As of Date: 04/25/2023 (Not on File) Date Reviewed: Never Reviewed Reason for Visit: Appointment [186] Problem List As Of Date: 04/25/2023 (None) Encounter Status:Closed by ALONDRA QUIROS on 04/25/23 [facility] CNPNon 04-22-2023 CNPN Telephone (REFPHY) BETH STARKEY ([id number]) 1940 F Date Time Provider Department 04/22/23 NO ONE (HISTORICAL) REFPHY During your visit today, we recorded the following information about you: Patrizia Orozco 04/22/2023 10:06 AM Signed Patient: Beth Starkey Date of : 1940 Patient phone number: [phone] Referring Provider for the encounter: Marck Tate MD Requesting Provider: N/A Reason for requesting visit (RFV/signs and symptoms/diagnosis): Sent Telephone Encounter - updated tracking. Person calling: caregiver: Patrizia Return call to: self Medical Records/Insurance Card scanned into [employer]: Yes Comments: N/A Allergies As of Date: 04/22/2023 (Not on File) Date Reviewed: Never Reviewed Reason for Visit: External Referrals/resources [909] Problem List As Of Date: 04/22/2023 (None) Encounter Status:Closed by PATRIZIA OROZCO on 04/22/23 [facility] Outside Radiologyon 04-20-20 23 Outside Radiology [id number] #1.00TIFF Normal [facility] Consent for Treatmenton Consent for Treatment [id number] #1.00TIFF Normal [facility] Lab - Otheron 03-23-2023 Lab - Other [id number] 0#1.00TIFF Normal [facility] Physician Orderon 01-21-2023 Physician Order [id number] #1.00CD:127 Normal [facility] Consent for Treatmenton 12-23 Consent for Treatment [id number]# 1.00CD:127 Normal [facility] Progress Note-Nurseon 2022 Progress Note-Nurse [id number] #1.00CD:127 Normal [facility] Consent for Treatmenton 09-21 Consent for Treatment [id number] #1.00CD:127 Normal [facility] Heart and Vascular Office/Cl inic Noteon 10-11-2022 [...] failure: Mother. Brenda Gehrig's disease: Father. Normal [facility] Comment on above: Result Comment: Elec tronically Signed By: Dayron Jorgensen MD\.br\Date and Time Signed: 10/11/22 10:20 EDT Physician Orderon 09-28-2022 Physician Order [id number] 7#1.00CD:127 Normal [facility] CHEMISTRYOrdered By: SYSTEM SYSTEM on 09-24-2022 Creatinine [Mass/Vol] 0.8 mg/dL Normal 0.5 - 1.3 mg/dL [facility] Remisol GFR/1.73 sq M.predicted among non-blacks MDRD (S/P/Bld) [Vol rate/Area] 74 mL/min/1.73 m2 Normal >=59mL/min/1. 73 m2 [facility] Chem S CTA Abdomen and Pelvison CTA [...] 370 Contrast amount in ml's: 100 Normal [facility] CTA Cheston 09-24-2022 CTA Chest Exam Date/Time: [...] 370 Contrast amount in ml's: 100 Normal [facility] Consent for Treatmenton Consent for Treatment [id number] #1.00CD:127 Normal [facility] Creatinineon 09-24-2022 Creatinine [Mass/Vol] 0.8 mg/dL Normal 0.5-1.3 [facility] Comment on above: Performed By: #### 2 [id number], [id number] ####[facility] [address] [place] [address] eGFRon 09-24-2022 GFR/1.73 sq M.predicted among non-blacks MDRD (S/P/Bld) [Vol rate/Area] 74 mL/min/1.73 m2 Normal >=59 [facility] Comment on above: Order Comment: Order added by Discern Expert. Result Comment: Box Closing Machine Operator rogelio kidney disease could be indicated at eGFR's of less than 60 mL/min/1.73m2. Kidney failure is indicated at less than 15 mL/min/1.73m2. Performed By: #### 2 [id number], [id number] ####[facility] [address] [address] Physician Orderon 09-23-2022 Physician Order [id number] 3#1.00CD:127 Normal [facility] Coding Summary.on 09-09-2022 Coding Summary. CD:[id number] Ww+PGhlYWQ+MN0WBVFfD 12kqZXajH8cW9EJVEjTU ywgQVBQTElOSyIgbmFtZ D9omICwQVTp IC8+MX0jFQAvKizzqODj m0Y7kVZ0D36sui1fGLda rRV2YUDeZfNqozeca5kb mZf5KJaxRotgZxLs NDVkeK18YJQ6tR50Bv61 sXXraMSqd4gzeUd0OdKy INEpVYX5qGpiHXtoq8Qc NXUuK97laSApa1T1 IGNvbGxhcHNlOyBlbXB0 dO6zGGgndphby3sifxwr Mqc5as85sXNdp2J2xMV0 Q3BcfxA0OAZalTZi ZzpeoMHVcE8bscqwa9yx brpxNmFdVKJbSVr5XOa6 PDFoyDkoQfIeTT61CUQ5 RCEzcwWgM0OoODJi yTgvQkB0l8Q7Wv6WH0PF EleuB1MZZCBCXTienBE+ ME74gd31C7VrLcqvIpt1 PEXyFUF3sYZ1vS9d XRArNJuhe6H3zOK4Z1Md xqXmrp6ah4hfUQPxAQff C07twTCxh8J4GZAbsVZ3 MCFoaXxqIkCuyV81 Oyc+HMJhwZoje2BhVpkl r0jfr1mzzFf2YbziSPVq czEnnNxzKDV7u3MgQp1b XKSzxVL4xMU3wP9q LaXmRhH6NBkjM427GhHg bWPzCsinI58hK6McfAM+ WUXsHah5BSUajDqrKJ6r M3YeYVXlxicryAGe vZgoLQ4gSHEmlsmeJKUg iM8rXTMtP0u0JkDyYtX7 MDrxT0ZnVRKnuoqhDm74 eH4gBdTsJeV8SRvz O5AcybY9OZHpwWXlHGxt JOK6T73wp0U2LUShILEc SYQ1cLQ7xM1ecRmvlnaf bGVmdDsgdmVydGlj XUpzIRvoF571ZUIkeWjp PkNvZGluZyBEYXRlOiAg MDQvMjAvMjAyMzwvdGQ+ BBVfPJQ2zQedGMKm zTCeYGvdAq2lqCzepUhn RZ9gISGeasftKPZrkF2i VYBicKQzcSekZH5zUMGg gpqyw665CbMuXKB5 NOOgqQZzE4XysR4vKkFr FCWjZFQrG6LmeDPpCVix Y564DVhwHwT0FBNbaeRp F5XsOPMmmJanCsE5 r9V0Kj5Oe9JhvntsD6Ih cILsGnHkRajcRXn1Q2Pe PjwvdHI+AG51BTWrLR09 XHn9OVB4tNanQXoj MQUyV3KqwL0sHtZhXBOz ZGRkOyc+PHRhYmxlIHdp ZHRoPScxMDAlJyBzdHls WA1sTp8uQPPqDUPs hXfldRRgLmJgp3zhYYCp BJiuJB1oqWtcO5ZnjVZ3 FKWtu3j0Cf36T58wN6Hc dXA+XKMloGM6zFF2 oM2zFeLuZeW6CTsuC791 SvHbjTEbIfpvi6kvr3up nLt4TiX2TJRzepDmlZyx OMV4g5ZdEm12T79u IHdpZHRoPSIxNSUiIHZh mExlni6ssX1vMk1+PGNv xQH7xGO4vB0kZcGmQxS0 EHnzM738QtTybNRb Ljrra4gyv8flaNk6BmRj OFFhqcGspBkdJSM0q5Fh Jm23L8RbtAian6JbVxj8 nv08wBOvj9W8nQM1 W9WzWSOthwhtzIDvzKao IM7bBXTwkjhlJXFfpF9v BALeR4i5QtVyTrV9MUev E9FbpmW3BMXyrWDb AZWkrTZIkY6sdgxyb1lc omcoMaNsXAObFNo9DFc8 RLBcnDeqRmIbINA5HlO6 KMM8vMRmnG0fuVry mmrbfE7dUkq+NIM5bAOp iUGTYN5mZjnooQP+PHRk JKE3vFweDKsuHJHdqR4y UWNaG7j3SmPxSnE9 IAdjQ3RsmkO2GUQgkPAf NANxkOFIsJ4qrcuzx9lj ovfkDrOmSHUaBQx0ZXu6 LWFsaWduOiBsZWZ0 SvX7XBC0rYFwaY6isBxd oniuuW8uYwz+QmlydGgg HMA4GJu9X4PsHxh1DKBa wWydAK4waQPxSAgr Jm7ohWraiXxkVY5uHDIh ecyzv232WvHyw9fhCOXg qYLlSUmyDWD4A57kx9V6 UZHpQEZxDUT5jOC2 vF1anHhytsyfaFUcdAjb feHsyQciOZreSJnvW834 XAAvxHegJcTrFSu8S0Ff Jrq4XVVjsFieNH8j zFGgNQdlJv0coFjzsWpb JC2iALBcwmrmr423YtMo b8jhMPQeiRZhGVilQBH1 C61rl8M4PKHkPULi JHO3zOI0sM2wbHhmeytb bGVmdDsgdmVydGljYWwt UZarV521IDJlkYirRjXg jLz6P1PpBul0LUBh mXxuWM5mcJHlXAawCy1y nAzyfTagRK4cTIPriulr m394QnDhv7gdTGRbxAZq LFohSTC3K06qi0U3 EBFbHZBkZHN1oKW7oG0l bGlnbjogbGVmdDsgdmVy oTkpNBxmDLuwJ936IXXk cDsnPlBhdGllbnQg SRszFHs5J2XoKaogbQA+ ED10WKWhVS13qCOgoDJr r1iafVp4WfLvUWIxZGD7 pWnvXWfou4FjQMFg I01zfLElw5L1NQPthRao eWHdZpZmbNE7cR5dCZnh aiyao3mzsgqrFioql9zc ky39rT60A24wJFme ZHRoPSIzMCUiIHZhbGln am5zwI3zXm6+PGNvbCB3 iJL1nU4xSHIjTaE2OWtm O682XkRsyIVjBukf k6bue2hngNu4IoH5KOEe bpAupSabZDG3s0GnNo44 H40xMXtfGILsYBCmTXZv PGZhzJceqa2kvT0a Ii8+UHLxrND2xUK2qC3a QzLnQfW3EJrxK007MiQz iVZvOaalL14kC4RzcPK+ FEGwNay8IAPtpBsx EK4anWZyMZstLo6zJZJ3 QyBtBuJbLUrfH1XwPKCp weelrkmuhJE5KITlKSOy uH12Ea8abLziOJKd dRZDkZ2jitivd4tebpjw GsEtFNWaCUp4XRw2ZTBg cBkcSxRcTEV1LyT6URR8 qJUapB6cvUcgudzf xO1cN4EaPOSzvwuuLy50 uX8sPrLxMaM8MBtjNae+ K0BXTjcjBHBPAUGBDA22 PQ82rFBhr5S2xRQ3 E6ChUDHywojanzjrrZR1 PGJaANJhzJ37yZHrWAhq Gw2nt8I7t959AHEzWDQe bZ54Xs9imQgnRWWv jKXIoA9ossiul4emfbog HeCxNMLdSVi5LRv8USWy jPkqSqNuECP5LfA3XOL2 dXOpkU8ipTncrfxa gD6eTmn+MTAvMjEvMTk0 MTwvdGQ+VIPhBXM7gZyo QTybGPBgkE3cHNHmG8a6 KoEmLeJ1LYkoC2Ov CFKczlxkNd67pG8wZlMk LvA6AAzcF6NsflG5SYEc fUKnTUrlYBA8B66bw4J7 ADXoCHCcORU7jXN8 tS5vzAvhyaoirGQawScl faSojReoGYjkDLptG062 IHRvcDsnPjgxIFllYXJz CY46BZ46uUXpl0J2 yKW0I4MbKESlyaffdikm nJR0QLLjFUOknH84wFLj VOxlGg0zl5D0k005WPZm JOQluF28Rl6obInd BWFguCTMcA2qydimm0wk fgqsYlOcFCKqMFy5HEa5 KINztYtzKpAyJWK2CvO2 FQC3sHCxxN6mhHgo tvldrD5pAyn+RmVtYWxl DD25OM55rIPob0I8hAN1 R0EoEYJxkfswbruztMQ1 OGCuDVXlgS99gPAz URfwCy1qx0E8h456JDRp DRLhpC85Fj4tdPcdXDRi mBGXvT1kzyzgz1wdhtsp DySePKWqKOx1YPi5 QIEmkPoeIaTfVFQ9XaT0 ZPX2hNBeiE0tgHpqexbu zG9sVjt+C2Y7wQR7gQKd dDwvdGQ+LN18pd92 N7AlEebmIsa4RKAvGFR5 sOB0tQ2qLINwHDkeu9M9 mPE9U0AgkgLbvp3gb0el BPGyWMakY18ssUNb f8U0WZOeePP4YWTbzJbm LrIenP59Huw+PGNvbGdy x2NoMdzjq3mnl2itpAm7 IjMwJSIgdmFsaWdu CHG1l8KuNi39Z32eLGes ZHRoPSIzMCUiIHZhbGln yd7ksZ5kZu5+PGNvbCB3 gYL3bS7mLvYzXwG6 DHhrH620WxDenBPaNvam m1jeq4inhNq0NiCdCJZf jrGxmMxgQFS7d0XeLq61 Z8OamMjgv9ZgCrz2 qc19rJDcz9P5nCA0A2Pu BCNfjasbqGJojCxtCV4h XVJfhrqnEMBssI5pNMRl I9s9QzDpAkV0EVyy B9EqlgF5CBIxmGSkRIXw uPBGzJ2qjbyhc4nioqzz ElGfICVkQSx9ZUh7TWDz lUxvXrEdVTB2HgE6 HBI8bPRhnK8irIjfpnll xJ9hRip+FYs2g3namNNa UD5yaHW0RN40HM81jAFk x5B3kCO5I0GnGAMw yeqslphqeMS2KUBiOHOr iL58Xo2tfCutOe5fKRJr GCL5COEfpHFlL0KhgY5b SgMiAOVcZAYtG6Gb mARqZXrwZ136LLyxOlT8 EWLksqOrW6FeNNJalXxu JoA7x8Y2Ss5VIW02AR58 MK35cMDec6P5wZD5 S0UvDEWvouzjvckmpDR6 YRNfRVLbbF66Gg9ijGpj So0iLOOuJHK9JFEodKWi C4VbtS1vLeDjLSOn DILvI4XhjDUuSDlwS970 ZVrtHsO2MMVxrrFwK7Vz SVHjoLorUrI3t8E0As0Z Wr72QJ03DM07nXMj c0D1xQD7C6SmGZHhdbwm xkzgtEI8OUDaSYTfiM41 Oi8htZvdNa7tOYHeCZG0 WJQdbMIwP7KejT0r CqLmHHXoALQhA6YfxSWa RVeiO628EZhyRnM3GYIf qrMeC6FcXPDhiBqfWdF2 k7Q2Lm7UTKmtzyg6 M1WwJqiwaEL+WQ07EQZk FZ24aUVarVImm1csiEh1 NaEyFJYoNFU7tKhcYVwj q3EfYRNiX34clSGb n6S7UJGy (more content not included)... Normal [facility] Consent for Treatmenton 08-21 Consent for Treatment [id number] #1.00CD:127 Normal [facility] Heart and Vascular Office/Cl inic Noteon 09-06-2022 [...] failure: Mother. Brenda Gehrig's disease: Father. Normal [facility] Comment on above: Result Comment: Elec tronically Signed By: Jameel CURRIE, Dayron Loaiza\.br\Date and Time Signed: 09/06/22 10:16 EDT Referrals Officeon 3 Referrals Office [id number] 9#1.00CD:127 Normal [facility] CT CHEST WO CONon 08-02-2022 CT CHEST [...] KAYY KAUR Date: 2022-08-02 10:52 Normal [facility] C. DIFF PCRon 07-28-2022 C. DIFFICILE PCR Negative Normal NEGATIVE [facility] Comment on above: Performed By: #### C DIFPOC #### [facility] [address] [address] [address] Spencer Braun OCC BLD IMMUNO SCREENon OCCULT BLOOD Negative Normal NEGATIVE [facility] Comment on above: Performed By: #### C BC #### [facility] [address] [place] [address] Dr. Spencer Braun INSULINon 07-15-2022 Insulin 17.7 uIU/mL Normal 2.6-24.9 [facility] Comment on above: Performed By: #### I NSULIN ####[facility] [address] [place], [place] [address]Dr. Spencer Braun BNPon 07-14-2022 Natriuretic peptide B (Bld) [Mass/Vol] 197.0 pg/mL Normal <=1,800.0 [facility] Comment on above: Performed By: #### B DISPATCHER MOTOR VEHICLE, LIPID, CMP, T7, TSH #### [facility] [address] [address] [address] Spencer Braun CBC AUTO DIFFon 07-14-2022 BASO # 0.1 103/ul Normal 0.0-0.1 [facility] Comment on above: Performed By: #### C BC #### [facility] [address] [place] [address] Dr. Spencer Braun Basophils/100 WBC (Bld) 0.9 % Normal 0.2-2.0 [facility] Comment on above: Performed By: #### C BC #### [facility] [address] [place] [address] Dr. Spencer Braun EO # 0.2 103/ul Normal 0.0-0.7 [facility] Comment on above: Performed By: #### C BC #### [facility] [address] [place] [address] Dr. Spencer Braun Eosinophils/100 WBC (Bld) 2.5 % Normal 0.9-7.0 [facility] Comment on above: Performed By: #### C BC #### [facility] [address] [place] [address] Dr. Spencer Braun Erythrocyte distribution width (RBC) [Ratio] 13.8 % Normal 11.0-15.0 [facility] Comment on above: Performed By: #### C BC #### [facility] [address] [place] [address] Dr. Spencer Braun Hematocrit (Bld) [Volume fraction] 45.1 % Normal 36.0-48.0 [facility] Comment on above: Performed By: #### C BC #### [facility] [address] [place] [address] Dr. Spencer Braun Hemoglobin (Bld) [Mass/Vol] 14.7 g/dL Normal 12.0-16.0 [facility] Comment on above: Performed By: #### C BC #### [facility] [address] [place] [address] Dr. Spencer Braun IG # 0.04 10e3/ul Critically high 0.00-0.03 [facility] Comment on above: Performed By: #### C BC #### [facility] [address] [place] [address] Dr. Spencer Braun IG % 0.5 % Normal 0.0-0.5 [facility] Comment on above: Performed By: #### C BC #### [facility] [address] [place] [address] Dr. Spencer Braun LYMPH # 1.6 103/ul Normal 1.2-3.8 [facility] Comment on above: Performed By: #### C BC #### [facility] [address] [place] [address] Dr. Spencer Braun Lymphocytes/100 WBC (Bld) 20.4 % Critically low 20.5-60.0 [facility] Comment on above: Performed By: #### C BC #### [facility] [address] [place] [address] Dr. Spencer Braun MANUAL DIFF REQ NO Normal [facility] Comment on above: Performed By: #### C BC #### [facility] [address] [place] [address] Dr. Spencer Barun MCH (RBC) [Entitic mass] 28.8 pg Normal 26.7-34.0 [facility] Comment on above: Performed By: #### C BC #### [facility] [address] [place] [address] Dr. Spencer Braun MCHC (RBC) [Mass/Vol] 32.6 g/dL Normal 29.9-35.2 [facility] Comment on above: Performed By: #### C BC #### [facility] [address] [place] [address] Dr. Spencer Braun MCV (RBC) [Entitic vol] 88.3 fL Normal 81.0-99.0 [facility] Comment on above: Performed By: #### C BC #### [facility] [address] [place] [address] Dr. Spencer Braun MONO # 0.5 103/ul Normal 0.3-0.8 [facility] Comment on above: Performed By: #### C BC #### [facility] [address] [place] [address] Dr. Spencer Braun Monocytes/100 WBC (Bld) 6.5 % Normal 1.7-12.0 [facility] Comment on above: Performed By: #### C BC #### [facility] [address] [place] [address] Dr. Spencer Braun NEUT # 5.4 103/ul Normal 1.4-6.5 [facility] Comment on above: Performed By: #### C BC #### [facility] [address] [place] [address] Dr. Spencer Braun Neutrophils/100 WBC (Bld) 69.2 % Normal 43.0-75.0 [facility] Comment on above: Performed By: #### C BC #### [facility] [address] [address] [address] Spencer Braun Platelet mean volume (Bld) [Entitic vol] 9.1 fL Critically low 9.5-13.5 [facility] Comment on above: Performed By: #### C BC #### [facility] [address] [address] [address] Spencer Braun PLT 190 103/ul Normal 150-450 [facility] Comment on above: Performed By: #### C BC #### [facility] [address] [address] [address] Spencer Braun RBC 5.11 106/ul Normal 4.20-5.40 [facility] Comment on above: Performed By: #### C BC #### [facility] [address] [address] [address] Spencer Braun WBC 7.7 103/ul Normal 4.0-11.0 [facility] Comment on above: Performed By: #### C BC #### [facility] [address] [address] [address] Spencer Braun FREE THYROXINE INDEX T7on FTI 2.87 Normal 1.30-4.50 [facility] Comment on above: Performed By: #### B DISPATCHER MOTOR VEHICLE, LIPID, CMP, T7, TSH ####[facility] [address] [id number]. Spencer Braun T3U 33.0 % Normal 30.0-39.0 [facility] Comment on above: Performed By: #### B DISPATCHER MOTOR VEHICLE, LIPID, CMP, T7, TSH ####[facility] [id number] [id number]. Spencer Braun T4 [Mass/Vol] 8.70 ug/dL Normal 4.80-13.90 [facility] Comment on above: Performed By: #### B DISPATCHER MOTOR VEHICLE, LIPID, CMP, T7, TSH ####[facility] [address] [place], [place] [address]WeManish Braun GLYCOHEMOGLOBIN A1Con 2022 ADA RECOMMENDATION SEE BELOW Normal [facility] Comment on above: Result Comment: ADA RECOMMENDED LIMIT 4.0 - 6.0 ADA THERAPEUTIC TARGET < 7.0 ACTION SUGGESTED > 7.0 Performed By: #### A 1C ####[facility] [address] [id number] Braun Glucose [Mass/Vol] 123 mg/dL Normal [facility] Comment on above: Performed By: #### A 1C ####[facility] [address] [id number] Braun HbA1c (Bld) [Mass fraction] 5.9 % Normal 4.5-6.2 [facility] Comment on above: Performed By: #### A 1C ####[facility] [address] [phone]. Spencer Braun IRONon 07-14-2022 Iron [Mass/Vol] 70.0 ug/dL Normal 50.0-170.0 [facility] Comment on above: Performed By: #### V ITAD, IRON #### [facility] [address] [place], [place] [address] Dr. Spencer Braun LIPID PROFILEon 07-14-2022 CHOL-HDL RATIO NORM SEE BELOW Normal [facility] Comment on above: Result Comment: 3.3 - 4.4 LOW RISK 4.4 - 7.1 AVERAGE RISK 7.1 - 11.0 MODERATE RISK >11.0 HIGH RISK Performed By: #### B DISPATCHER MOTOR VEHICLE, LIPID, CMP, T7, TSH ####[facility] [address] [place] [id number] Braun Cholesterol [Mass/Vol] 180 mg/dL Normal <=200 [facility] Comment on above: Performed By: #### B DISPATCHER MOTOR VEHICLE, LIPID, CMP, T7, TSH ####[facility] [address] [place] [phone] Braun Cholesterol in HDL [Mass/Vol] 50 mg/dL Normal 40-60 [facility] Comment on above: Performed By: #### B DISPATCHER MOTOR VEHICLE, LIPID, CMP, T7, TSH ####[facility] [address] [place] [id number]. Spencer Braun Cholesterol in LDL [Mass/Vol] 105.8 mg/dL Normal [facility] Comment on above: Performed By: #### B DISPATCHER MOTOR VEHICLE, LIPID, CMP, T7, TSH ####[facility] [address] [phone]. Spencer Braun Cholesterol.total/Cho lesterol in HDL [Mass ratio] 3.6 {ratio} Normal [facility] Comment on above: Performed By: #### B DISPATCHER MOTOR VEHICLE, LIPID, CMP, T7, TSH ####[facility] [address] [place] [address]Dr. Spencer Braun HDL NORMAL > or = 60 mg/dl - LOW CARDIOVASCULAR RISK <40 mg/dl - HIGH CARDIOVASCULAR RISK Normal [facility] Comment on above: Performed By: #### B DISPATCHER MOTOR VEHICLE, LIPID, CMP, T7, TSH ####[facility] [address] [address]Dr. Spencer Braun LDL CALC NORMAL SEE BELOW Normal [facility] Comment on above: Result Comment: <100 mg/dl OPTIMAL 100 - 129 mg/dl NEAR OR ABOVE OPTIMAL 130 - 159 mg/dl BORDERLINE HIGH 160 - 189 mg/dl HIGH >190 mg/dl VERY HIGH Performed By: #### B DISPATCHER MOTOR VEHICLE, LIPID, CMP, T7, TSH ####[facility] [address] [place] [id number]. Spencer Braun Triglyceride [Mass/Vol] 121 mg/dL Normal <=150 [facility] Comment on above: Performed By: #### B DISPATCHER MOTOR VEHICLE, LIPID, CMP, T7, TSH ####[facility] [address] [place] [id number]. Spencer Braun VLDL CALC 24.2 mg/dL Normal [facility] Comment on above: Performed By: #### B DISPATCHER MOTOR VEHICLE, LIPID, CMP, T7, TSH ####[facility] [address] [place] [phone]. Spencer Braun PROF 14(COMP METB)on 02-22-2 023 Albumin [Mass/Vol] 3.8 g/dL Normal 3.4-5.0 [facility] Comment on above: Performed By: #### B DISPATCHER MOTOR VEHICLE, LIPID, CMP, T7, TSH #### [facility] [address] [address] [address] Spencer Braun Albumin/Globulin [Mass ratio] 1.0 {ratio} Normal [facility] Comment on above: Performed By: #### B DISPATCHER MOTOR VEHICLE, LIPID, CMP, T7, TSH #### [facility] [address] [address] [address] Spencer Braun ALP [Catalytic activity/Vol] 135 U/L Critically high 46-116 [facility] Comment on above: Performed By: #### B DISPATCHER MOTOR VEHICLE, LIPID, CMP, T7, TSH #### [facility] [address] [place] [address] Dr. Spencer Braun ALT [Catalytic activity/Vol] 20 U/L Normal 14-59 [facility] Comment on above: Performed By: #### B DISPATCHER MOTOR VEHICLE, LIPID, CMP, T7, TSH #### [facility] [address] [place] [address] Dr. Spencer Braun Anion gap [Moles/Vol] 8.4 mmol/L Normal [facility] Comment on above: Performed By: #### B DISPATCHER MOTOR VEHICLE, LIPID, CMP, T7, TSH #### [facility] [address] [place] [address] Dr. Spencer Braun AST [Catalytic activity/Vol] 14 U/L Critically low 15-37 [facility] Comment on above: Performed By: #### B DISPATCHER MOTOR VEHICLE, LIPID, CMP, T7, TSH #### [facility] [address] [place] [address] Dr. Spencer Braun Bilirubin [Mass/Vol] 0.4 mg/dL Normal 0.2-1.0 [facility] Comment on above: Performed By: #### B DISPATCHER MOTOR VEHICLE, LIPID, CMP, T7, TSH #### [facility] [address] [place] [address] Dr. Spencer Braun Calcium [Mass/Vol] 9.5 mg/dL Normal 8.5-10.1 [facility] Comment on above: Performed By: #### B DISPATCHER MOTOR VEHICLE, LIPID, CMP, T7, TSH #### [facility] [address] [address] [address] Spencer Braun Chloride [Moles/Vol] 104 mmol/L Normal 98-107 [facility] Comment on above: Performed By: #### B DISPATCHER MOTOR VEHICLE, LIPID, CMP, T7, TSH #### [facility] [address] [address] [address] Spencer Braun CO2 [Moles/Vol] 32.0 mmol/L Normal 21.0-32.0 [facility] Comment on above: Performed By: #### B DISPATCHER MOTOR VEHICLE, LIPID, CMP, T7, TSH #### [facility] [address] [place] [address] Dr. Spencer Braun Creatinine [Mass/Vol] 0.72 mg/dL Normal 0.55-1.02 [facility] Comment on above: Performed By: #### B DISPATCHER MOTOR VEHICLE, LIPID, CMP, T7, TSH #### [facility] [address] [place] [address] Dr. Spencer Braun EGFR-AF BERMUDIAN >60 Normal >=60 [facility] Comment on above: Performed By: #### B DISPATCHER MOTOR VEHICLE, LIPID, CMP, T7, TSH #### [facility] [address] [place] [address] Dr. Spencer Braun EGFR-NON AF BERMUDIAN >60 Normal >=60 [facility] Comment on above: Performed By: #### B DISPATCHER MOTOR VEHICLE, LIPID, CMP, T7, TSH #### [facility] [address] [place] [address] Dr. Spencer Braun Globulin (S) [Mass/Vol] 3.9 g/dL Normal [facility] Comment on above: Performed By: #### B DISPATCHER MOTOR VEHICLE, LIPID, CMP, T7, TSH #### [facility] [address] [place] [address] Dr. Spencer Braun Glucose [Mass/Vol] 127 mg/dL Critically high 74-106 T [facility] Comment on above: Performed By: #### B DISPATCHER MOTOR VEHICLE, LIPID, CMP, T7, TSH #### [facility] [address] [place] [address] Dr. Spencer Braun Potassium [Moles/Vol] 4.4 mmol/L Normal 3.5-5.1 [facility] Comment on above: Performed By: #### B DISPATCHER MOTOR VEHICLE, LIPID, CMP, T7, TSH #### [facility] [address] [place] [address] Dr. Spencer Braun Protein [Mass/Vol] 7.7 g/dL Normal 6.4-8.2 [facility] Comment on above: Performed By: #### B DISPATCHER MOTOR VEHICLE, LIPID, CMP, T7, TSH #### [facility] [address] [place] [address] Dr. Spencer Braun Sodium [Moles/Vol] 140 mmol/L Normal 136-145 [facility] Comment on above: Performed By: #### B DISPATCHER MOTOR VEHICLE, LIPID, CMP, T7, TSH #### [facility] [address] [place] [address] Dr. Spencer Braun Urea nitrogen [Mass/Vol] 18.0 mg/dL Normal 7.0-18.0 [facility] Comment on above: Performed By: #### B DISPATCHER MOTOR VEHICLE, LIPID, CMP, T7, TSH #### [facility] [address] [place] [address] Dr. Spencer Braun Urea nitrogen/Creatinine [Mass ratio] 25.0 mg/mg Normal [facility] Comment on above: Performed By: #### B DISPATCHER MOTOR VEHICLE, LIPID, CMP, T7, TSH #### [facility] [address] [place] [address] Dr. Spencer Braun TSHon 07-14-2022 TSH 1.760 uIU/mL Normal 0.358-3.740 [facility] Comment on above: Performed By: #### B DISPATCHER MOTOR VEHICLE, LIPID, CMP, T7, TSH #### [facility] [address] [place] [address] Dr. Spencer Braun VITAMIN D 25 OHon 07-14-2022 VIT D 25-OH 85.7 ng/mL Normal [facility] Comment on above: Performed By: #### V ITAD, IRON #### [facility] [address] [place] [address] Dr. Spencer Braun VIT D RANGES SEE BELOW Normal [facility] Comment on above: Result Comment: <20 ng/mL Vit D deficient 20 - <30 ng/mL Vit D insufficient 30 - 100 ng/mL Vit D sufficient >100 ng/mL Potential Toxicity Performed By: #### V ITAD, IRON #### [facility] [address] [place] [address] Dr. Spencer Braun CBC AUTO DIFFon 04-30-2022 BASO # 0.1 103/ul Normal 0.0-0.1 [facility] Comment on above: Performed By: #### C BC #### [facility] [address] [place] [address] Dr. Spencer Braun Basophils/100 WBC (Bld) 0.9 % Normal 0.2-2.0 [facility] Comment on above: Performed By: #### C BC #### [facility] [address] [place] [address] Dr. Spencer Braun EO # 0.2 103/ul Normal 0.0-0.7 [facility] Comment on above: Performed By: #### C BC #### [facility] [address] [place] [address] Dr. Spencer Braun Eosinophils/100 WBC (Bld) 2.1 % Normal 0.9-7.0 [facility] Comment on above: Performed By: #### C BC #### [facility] [address] [place] [address] Dr. Spencer Braun Erythrocyte distribution width (RBC) [Ratio] 13.9 % Normal 11.0-15.0 [facility] Comment on above: Performed By: #### C BC #### [facility] [address] [place] [address] Dr. Spencer Braun Hematocrit (Bld) [Volume fraction] 46.2 % Normal 36.0-48.0 [facility] Comment on above: Performed By: #### C BC #### [facility] [address] [place] [address] Dr. Spencer Braun Hemoglobin (Bld) [Mass/Vol] 15.1 g/dL Normal 12.0-16.0 [facility] Comment on above: Performed By: #### C BC #### [facility] [address] [address] [address] Spencer Braun IG # 0.05 10e3/ul Critically high 0.00-0.03 [facility] Comment on above: Performed By: #### C BC #### [facility] [address] [address] [address] Spencer Braun IG % 0.6 % Critically high 0.0-0.5 [facility] Comment on above: Performed By: #### C BC #### [facility] [address] [place] [address] Dr. Spencer Braun LYMPH # 1.7 103/ul Normal 1.2-3.8 [facility] Comment on above: Performed By: #### C BC #### [facility] [address] [place] [address] Dr. Spencer Braun Lymphocytes/100 WBC (Bld) 20.3 % Critically low 20.5-60.0 [facility] Comment on above: Performed By: #### C BC #### [facility] [address] [place] [address] Dr. Spencer Braun MANUAL DIFF REQ NO Normal [facility] Comment on above: Performed By: #### C BC #### [facility] [address] [place] [address] Dr. Spencer Braun MCH (RBC) [Entitic mass] 28.8 pg Normal 26.7-34.0 [facility] Comment on above: Performed By: #### C BC #### [facility] [address] [place] [address] Dr. Spencer Braun MCHC (RBC) [Mass/Vol] 32.7 g/dL Normal 29.9-35.2 [facility] Comment on above: Performed By: #### C BC #### [facility] [address] [place] [address] Dr. Spencer Braun MCV (RBC) [Entitic vol] 88.2 fL Normal 81.0-99.0 [facility] Comment on above: Performed By: #### C BC #### [facility] [address] [place] [address] Dr. Spencer Braun MONO # 0.6 103/ul Normal 0.3-0.8 [facility] Comment on above: Performed By: #### C BC #### [facility] [address] [place] [address] Dr. Spencer Braun Monocytes/100 WBC (Bld) 7.1 % Normal 1.7-12.0 [facility] Comment on above: Performed By: #### C BC #### [facility] [address] [place] [address] Dr. Spencer Braun NEUT # 5.7 103/ul Normal 1.4-6.5 [facility] Comment on above: Performed By: #### C BC #### [facility] [address] [place] [address] Dr. Spencer Braun Neutrophils/100 WBC (Bld) 69.0 % Normal 43.0-75.0 [facility] Comment on above: Performed By: #### C BC #### [facility] [address] [place] [address] Dr. Spencer Braun Platelet mean volume (Bld) [Entitic vol] 9.2 fL Critically low 9.5-13.5 [facility] Comment on above: Performed By: #### C BC #### [facility] [address] [place] [address] Dr. Spencer Braun PLT 180 103/ul Normal 150-450 [facility] Comment on above: Performed By: #### C BC #### [facility] [address] [place] [address] Dr. Spencer Braun RBC 5.24 106/ul Normal 4.20-5.40 [facility] Comment on above: Performed By: #### C BC #### [facility] [address] [place] [address] Dr. Spencer Braun WBC 8.2 103/ul Normal 4.0-11.0 [facility] Comment on above: Performed By: #### C BC #### [facility] [address] [address] [address] Spencer Braun FREE T3on 04-30-2022 FREE T3 2.98 pg/mlL Normal 2.18-3.98 [facility] Comment on above: Performed By: #### L IPID, TSH, T4, FT3, CMP ####[facility] [address] [place] [id number]. Spencer Braun GLYCOHEMOGLOBIN A1Con 2021 ADA RECOMMENDATION SEE BELOW Normal [facility] Comment on above: Result Comment: ADA RECOMMENDED LIMIT 4.0 - 6.0 ADA THERAPEUTIC TARGET < 7.0 ACTION SUGGESTED > 7.0 Performed By: #### A 1C ####[facility] [address] [place], [place] [address]Dr. Spencer Braun Glucose [Mass/Vol] 134 mg/dL Normal [facility] Comment on above: Performed By: #### A 1C ####[facility] [address] [place], [place] [address]Dr. Spencer Braun HbA1c (Bld) [Mass fraction] 6.3 % Critically high 4.5-6.2 [facility] Comment on above: Performed By: #### A 1C ####[facility] [address] [place], [place] [address]DrManish Braun LIPID PROFILEon 04-30-2022 CHOL-HDL RATIO NORM SEE BELOW Normal [facility] Comment on above: Result Comment: 3.3 - 4.4 LOW RISK 4.4 - 7.1 AVERAGE RISK 7.1 - 11.0 MODERATE RISK >11.0 HIGH RISK Performed By: #### L IPID, TSH, T4, FT3, CMP ####[facility] [address] [place] [id number]. Spencer Braun Cholesterol [Mass/Vol] 177 mg/dL Normal <=200 [facility] Comment on above: Performed By: #### L IPID, TSH, T4, FT3, CMP ####[facility] [address] [place] [phone]. Spencer Braun Cholesterol in HDL [Mass/Vol] 56 mg/dL Normal 40-60 [facility] Comment on above: Performed By: #### L IPID, TSH, T4, FT3, CMP ####[facility] [address] [place] [address]Dr. Spencer Braun Cholesterol in LDL [Mass/Vol] 97.8 mg/dL Normal [facility] Comment on above: Performed By: #### L IPID, TSH, T4, FT3, CMP ####[facility] [address] [place] [address]Dr. Spencer Braun Cholesterol.total/Cho lesterol in HDL [Mass ratio] 3.2 {ratio} Normal [facility] Comment on above: Performed By: #### L IPID, TSH, T4, FT3, CMP ####[facility] [address] [place] [address]Dr. Spencer Braun HDL NORMAL > or = 60 mg/dl - LOW CARDIOVASCULAR RISK <40 mg/dl - HIGH CARDIOVASCULAR RISK Normal [facility] Comment on above: Performed By: #### L IPID, TSH, T4, FT3, CMP ####[facility] [address] [place] [address]Dr. Spencer Braun LDL CALC NORMAL SEE BELOW Normal [facility] Comment on above: Result Comment: <100 mg/dl OPTIMAL 100 - 129 mg/dl NEAR OR ABOVE OPTIMAL 130 - 159 mg/dl BORDERLINE HIGH 160 - 189 mg/dl HIGH >190 mg/dl VERY HIGH Performed By: #### L IPID, TSH, T4, FT3, CMP ####[facility] [address] [place] [address]Dr. Spencer Braun Triglyceride [Mass/Vol] 116 mg/dL Normal <=150 [facility] Comment on above: Performed By: #### L IPID, TSH, T4, FT3, CMP ####[facility] [address] [place] [address]Dr. Spencer Braun VLDL CALC 23.2 mg/dL Normal [facility] Comment on above: Performed By: #### L IPID, TSH, T4, FT3, CMP ####[facility] [address] [place] [address]Dr. Spencer Braun PROF 14(COMP METB)on 022 Albumin [Mass/Vol] 3.8 g/dL Normal 3.4-5.0 [facility] Comment on above: Performed By: #### L IPID, TSH, T4, FT3, CMP ####[facility] [address] [place] [address]Dr. Spencer Braun Albumin/Globulin [Mass ratio] 0.9 {ratio} Normal [facility] Comment on above: Performed By: #### L IPID, TSH, T4, FT3, CMP ####[facility] [address] [place] [address]Dr. Spencer Braun ALP [Catalytic activity/Vol] 143 U/L Critically high 46-116 [facility] Comment on above: Performed By: #### L IPID, TSH, T4, FT3, CMP ####[facility] [address] [place], [place] [address]Dr. Spencer Braun ALT [Catalytic activity/Vol] 19 U/L Normal 14-59 [facility] Comment on above: Performed By: #### L IPID, TSH, T4, FT3, CMP ####[facility] [address] [place], [place] [address]Dr. Spencer Braun Anion gap [Moles/Vol] 12.1 mmol/L Normal [facility] Comment on above: Performed By: #### L IPID, TSH, T4, FT3, CMP ####[facility] [address] [place], [place] [address]Dr. Spencer Braun AST [Catalytic activity/Vol] 17 U/L Normal 15-37 [facility] Comment on above: Performed By: #### L IPID, TSH, T4, FT3, CMP ####[facility] [address] [place], [place] [address]Dr. Spencer Braun Bilirubin [Mass/Vol] 0.3 mg/dL Normal 0.2-1.0 [facility] Comment on above: Performed By: #### L IPID, TSH, T4, FT3, CMP ####[facility] [address] [place], [place] [address]Dr. Maemarek Braun Calcium [Mass/Vol] 9.5 mg/dL Normal 8.5-10.1 [facility] Comment on above: Performed By: #### L IPID, TSH, T4, FT3, CMP ####[facility] [address] [place] [address]Dr. Maemarek Braun Chloride [Moles/Vol] 102 mmol/L Normal 98-107 [facility] Comment on above: Performed By: #### L IPID, TSH, T4, FT3, CMP ####[facility] [address] [place] [address]Dr. Maemarek Braun CO2 [Moles/Vol] 32.6 mmol/L Critically high 21.0-32.0 [facility] Comment on above: Performed By: #### L IPID, TSH, T4, FT3, CMP ####[facility] [address] [place] [address]Dr. Spencer Braun Creatinine [Mass/Vol] 0.69 mg/dL Normal 0.55-1.02 [facility] Comment on above: Performed By: #### L IPID, TSH, T4, FT3, CMP ####[facility] [address] [place] [address]Dr. Spencer Braun EGFR-AF BERMUDIAN >60 Normal >=60 [facility] Comment on above: Performed By: #### L IPID, TSH, T4, FT3, CMP ####[facility] [address] [place] [address]Dr. Spencer Braun EGFR-NON AF BERMUDIAN >60 Normal >=60 [facility] Comment on above: Performed By: #### L IPID, TSH, T4, FT3, CMP ####[facility] [address] [place] [address]Dr. Spencer Braun Globulin (S) [Mass/Vol] 4.1 g/dL Normal [facility] Comment on above: Performed By: #### L IPID, TSH, T4, FT3, CMP ####[facility] [address] [place] [address]Dr. Spencer Braun Glucose [Mass/Vol] 108 mg/dL Critically high 74-106 T [facility] Comment on above: Performed By: #### L IPID, TSH, T4, FT3, CMP ####[facility] [address] [place] [address]Dr. Spencer Braun Potassium [Moles/Vol] 4.7 mmol/L Normal 3.5-5.1 [facility] Comment on above: Performed By: #### L IPID, TSH, T4, FT3, CMP ####[facility] [address] [place] [address]Dr. Spencer Braun Protein [Mass/Vol] 7.9 g/dL Normal 6.4-8.2 [facility] Comment on above: Performed By: #### L IPID, TSH, T4, FT3, CMP ####[facility] [address] [place] [address]Dr. Spencer Braun Sodium [Moles/Vol] 142 mmol/L Normal 136-145 [facility] Comment on above: Performed By: #### L IPID, TSH, T4, FT3, CMP ####[facility] [address] [place] [address]Dr. Spencer Braun Urea nitrogen [Mass/Vol] 19.0 mg/dL Critically high 7.0-18.0 [facility] Comment on above: Performed By: #### L IPID, TSH, T4, FT3, CMP ####[facility] [address] [place] [address]Dr. Spencer Braun Urea nitrogen/Creatinine [Mass ratio] 27.5 mg/mg Normal [facility] Comment on above: Performed By: #### L IPID, TSH, T4, FT3, CMP ####[facility] [address] [place] [address]Dr. Spencer Braun T4on 04-30-2022 T4 [Mass/Vol] 8.30 ug/dL Normal 4.80-13.90 [facility] Comment on above: Performed By: #### L IPID, TSH, T4, FT3, CMP ####[facility] [address] [place], [place] [address]QzManish Braun TSHon 04-30-2022 TSH 1.777 uIU/mL Normal 0.358-3.740 [facility] Comment on above: Performed By: #### L IPID, TSH, T4, FT3, CMP ####[facility] [address] [place], [place] [address]BzDr. Spencer Braun VITAMIN D 25 OHon 04-30-2022 VIT D 25-OH 72.1 ng/mL Normal [facility] Comment on above: Performed By: #### V ITAD #### [facility] [id number] Spencer Braun VIT D RANGES SEE BELOW Normal [facility] Comment on above: Result Comment: <20 ng/mL Vit D deficient 20 - <30 ng/mL Vit D insufficient 30 - 100 ng/mL Vit D sufficient >100 ng/mL Potential Toxicity Performed By: #### V ITAD #### [facility] [address] [address] [address] Spencer Braun MG MAMM SCREEN 3D AWAIS CADon 02-16-2022 MG MAMM SCREEN 3D AWAIS CAD Patient: BETH STARKEY Exam Date: 02/16/2022 : 1940 Gender:F Ordering : DR MARCK TATE . Admission #: [id number] Family : Order #: [id number] CLICK HERE TO VIEW EXAM RADIOLOGY REPORT [...] prostate cancer at age 71. LOCATION: [facility] BREAST COMPOSITION: Heterogeneously dense,which may obscure small [...] Encarnacion MD on 02/17/2022 at 07:39 Normal [facility] Vital Signs Date Time Vital Sign Value Performing Clinician Tony jenkins 05-12-2023 10:13-0500 Diastolic blood pressure 72 mm[Hg] [facility] 05-12-2023 10:13-0500 Heart rate 94 /min [facility] 05-12-2023 10:13-0500 SaO2% (BldA) [Mass fraction] 90 % [facility] 05-12-2023 10:13-0500 Systolic blood pressure 130 mm[Hg] [facility] 05-03-2023 12:24-0500 Diastolic blood pressure 59 mm[Hg] Jena Hicks MD Work Phone: [facility] 05-03-2023 12:24-0500 Heart rate 86 /min Jena Hicks MD Work Phone: [facility] 05-03-2023 12:24-0500 Systolic blood pressure 103 mm[Hg] Jena Hicks MD Work Phone: [facility] 05-03-2023 12:14-0500 Body height 152.4 cm Jena Hicks MD Work Phone: [facility] 05-03-2023 12:14-0500 Body temperature 98.29 [degF] Jena Hicks MD Work Phone: [facility] 05-03-2023 12:14-0500 Body weight 65.82 kg Jena Hicks MD Work Phone: [facility] 05-03-2023 12:14-0500 Respiratory rate 16 /min Jena Hicks MD Work Phone: [facility] 05-03-2023 12:14-0500 SaO2% (BldA) [Mass fraction] 93 % Jena Hicks MD Work Phone: [facility] 09-06-2022 09:39-0400 Blood Pressure Location Dayron Davidsonan [facility] 09-06-2022 09:39-0400 Diastolic blood pressure 81 mm[Hg] Dayron Davidsonan [facility] 09-06-2022 09:39-0400 Heart rate 103 /min Dayron Davidsonan [facility] 09-06-2022 09:39-0400 SaO2% (BldA) [Mass fraction] 90 % Dayron Davidsonan [facility] 09-06-2022 09:39-0400 Systolic blood pressure 126 mm[Hg] Dayron Davidsonan [facility] Encounters Encounter Date Encounter Type Care Provider Facility Start: 05-30-2023 End: 05-30-2023 ambulatory FORREST SALAZAR Not Available Start: 05-12-2023 End: 05-13-2023 ambulatory Sha Vallejo Facility:[facility] Start: 05-12-2023 End: 05-12-2023 Patient encounter procedure Sha Vallejo [facility] Start: 05-04-2023 Orders Only Jena Hicks MD Work Phone: [facility] Comment on above: 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); Bilateral carotid artery stenosis; Other disorders of arteries, arterioles and capillaries in diseases classified elsewhere (HCC) Start: 05-03-2023 End: 05-03-2023 ambulatory JENA HICKS Facility:[facility] Start: 05-03-2023 End: 05-03-2023 Office outpatient visit 25 minutes Jena Hikcs MD Work Phone: [facility] Comment on above: 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) Start: 04-26-2023 Orders Only Jena Hicks MD Work Phone: Vascular Surg Dept Comment on above: Chest pain, unspecif ied type (Primary Dx) Start: 04-25-2023 Telephone encounter No Pcp MOLD SANDER NOC Comment on above: Appointment Start: 04-22-2023 Telephone encounter No One (Historic al) Referring Physician Comment on above: External Referrals/r esources Start: 04-20-2023 End: 04-20-2023 ambulatory FORREST SALAZAR Not Available Start: 03-23-2023 End: 03-24-2023 ambulatory Sha Vallejo Facility:[facility] Start: 03-23-2023 End: 03-23-2023 Patient encounter procedure Sha Vallejo [facility] Start: 01-20-2023 End: 01-21-2023 ambulatory Sha Vallejo Facility:[facility] Start: 01-20-2023 End: 01-20-2023 Patient encounter procedure Sha Vallejo [facility] Start: 10-11-2022 End: 10-12-2022 ambulatory Dayron Jorgensen Facility:[facility] Start: 09-24-2022 End: 09-25-2022 ambulatory Dayron Jorgensen Facility:[facility] Start: 09-24-2022 End: 09-24-2022 Patient encounter procedure Dayron Jorgensen [facility] Start: 09-06-2022 End: 09-07-2022 ambulatory Dayron Jorgensen Facility:[facility] Start: 09-06-2022 End: 09-06-2022 Patient encounter procedure Dayron Jorgensen [facility] Start: 08-02-2022 End: 08-03-[address] MARCK TATE . Facility:[facility] Start: 07-28-2022 End: 07-28-[address] MARCK TATE . Facility:[facility] Start: 07-14-2022 End: 07-15-[address] MARCK TATE . Facility:[facility] Start: 04-30-2022 End: 05-01-[address] MARCK TATE . Facility:[facility] Start: 02-16-2022 End: 02-17-[address] MARCK TATE . Facility: Start: 06-17-2017 End: 06-18-2017 Ambulatory DEFAULT PHYSICIAN Facility:[facility] Plan of Treatment Date Care Activity Detail Author Start: 07-04-2029 Urine microalbumin profile DTaP,Tdap,Td Vaccine (2 - Td or Tdap) [facility] Start: 01-21-2023 Influenza vaccination Influenza Vacc ine (#1) [facility] Start: 05-23-2022 Advance Directive Discussion Advance Directive Discussion [facility] Start: 05-23-2022 Depression Assessment Depression Ass essment [facility] Start: 05-18-2017 Pneumococcal Vaccine : 65+ (2 - PPSV23 or PCV20) Pneumococcal Vaccine: 65+ (2 - PPSV23 or PCV20) [facility] Start: 2006 Bone Density Screening Bone Density Screening [facility] Start: 2006 Pneumococcal Vaccine : 65+ (1 - PCV) Pneumococcal Vaccine: 65+ (1 - PCV) [facility] Start: 2006 Screening for osteoporosis Bone Density Screening [facility] Start: 2001 RSV Vaccine (1 - 1-d ose 60+ series) RSV Vaccine (1 - 1-dose 60+ series) [facility] Start: 1991 Shingrix Vaccine (1 of 2) Shingrix Vaccine (1 of 2) [facility] Start: 1986 Diabetes Screening Diabetes Screenin g [facility] Start: 1940 Covid-19 Vaccine (#1) Covid-19 Vacci ne (#1) [facility] End: 05-25-2024 Ct angio abd&plvis cntrst mtrl w/wo cntrst img CTA ABD/PEL WO/W IVCON Radiology Routine Chest pain, unspecified type 1 Occurrences starting 04/26/2023 until 05/25/2024 [facility] Work Phone: Comment on above: 1 Occurrences starti ng 04/26/2023 until 05/25/2024 End: 06-02-2024 Ct angio abd&plvis cntrst mtrl w/wo cntrst img CTA ABD/PEL WO/W IVCON Radiology Routine 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 Occurrences starting 05/04/2023 until 06/02/2024 [facility] Work Phone: Comment on above: 1 Occurrences starti ng 05/04/2023 until 06/02/2024 End: 05-25-2024 Ct angiography chest w/contrast/noncontrast CTA CHEST (NONGATED) WO/W IVCON Radiology Routine Chest pain, unspecified type 1 Occurrences starting 04/26/2023 until 05/25/2024 [facility] Work Phone: Comment on above: 1 Occurrences starti ng 04/26/2023 until 05/25/2024 End: 06-02-2024 Ct angiography chest w/contrast/noncontrast CTA CHEST (NONGATED) WO/W IVCON Radiology Routine 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 Occurrences starting 05/04/2023 until 06/02/2024 [facility] Work Phone: Comment on above: 1 Occurrences starti ng 05/04/2023 until 06/02/2024 End: 05-04-2024 PVR ANK/HILL/TOE AWAIS VAS LAB PVR ANK/HILL/TOE AWAIS VAS LAB Vascular Lab Routine 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) Other disorders of arteries, arterioles and capillaries in diseases classified elsewhere (HCC) 1 Occurrences starting 05/04/2023 until 05/04/2024 [facility] Work Phone: Comment on above: 1 Occurrences starti ng 05/04/2023 until 05/04/2024 End: 05-04-2024 US CAROTID ARTERIES AWAIS VAS LAB US CAROTID ARTERIES AWAIS VAS LAB Vascular Lab Routine Bilateral carotid artery stenosis 1 Occurrences starting 05/04/2023 until 05/04/2024 [facility] Work Phone: Comment on above: 1 Occurrences starti ng 05/04/2023 until 05/04/2024 [facility] Payers Date Payer Category Payer [employer] and others) [id number] 2006 Medicare MEDICARE MEDICAR E A AND B [id number] 2006-Present [phone] [place] [address] Medicare [id number] 1959 [employer] ( and others) [id number] 1959 Medicare [id number] 1940 Unknown [id number] 2..[id number]. 2.593 1941 Unknown [id number] 2..840.1.297259.3.579. 2.593 1941 Unknown [id number] 2..840.1.153666.3.579. 2.593 1941 Unknown [id number] 2.16.840.1.686925.3.579. 2.593 1941 Unknown [id number] 2.16.840.1.235024.3.579. 2.593 1941 Unknown [id number] 2.16.840.1.534254.3.579. 2.727 1941 Unknown [id number] 2.16.840.1.380080.3.579. 2.727 1941 Unknown [id number] 2.16.840.1.648810.3.579. 2.727 1941 Unknown [id number] 2.16.840.1.272821.3.579. 2.727 1941 Unknown [id number] 2.16.840.1.356848.3.579. 2.727 1941 Unknown [id number] 2.16.840.1.123582.3.579. 2.727 1941 Unknown [id number] 2.16.840.1.506520.3.579. 2.1259 1941 Unknown [id number] 2.16.840.1.997972.3.579. 2.1259 Unknown Social History Date Type Detail Facility Start: 09-06-2022 End: 05-12-2023 Tobacco smoking status Heavy tobacco smoker (finding) [facility] Start: 05-03-2023 Sex Assigned At Female F [facility] Tobacco smoking stat [facility] Tobacco smoking consumption unknown [facility] Start: 1940 Sex Assigned At Not on file [facility] Start: 05-23-1956 Tobacco smoking stat [facility] Smokes tobacco daily [facility] Start: 05-23-1956 History of tobacco use Cigarette Smo ker [facility] Start: 05-03-2023 Cigarettes smoked current (pack per day) - Reported 1.5 [facility] Start: 05-03-2023 Tobacco use and exposure Smokeless tobacco non-user [facility] Start: 05-03-2023 Alcohol intake Current drinke r of alcohol (finding) [facility] National Score (1-10 0), lower number is lower risk 87 [facility] Start: 05-03-2023 Alcohol Comment football season [facility] Functional Status Date Assessment Result Facility 05-12-2023 Functional Status N/A [facility] 09-06-2022 Functional Status No [facility] Clinical Notes 03-21-2023 to 05-26-2023 Jena Hicks MD - 05/03/2023 12:42 PM ESTTelephone Encounter - Alondra Quiros - 04/25/2023 4:18 PM ESTTelephone Encounter - Des Payer SpecialistPatrizia gaviria - 04/22/2023 10:05 AM ESTRadiologyRadiology Note Date & Type Note Facility 05-26-2023 Note Patient Outreach ([facility] LMMN) BETH STARKEY ([id number]) 1940 F Date Time Provider Department 05/26/23 [...] and brochure sent Lung Nodule Program Location: [place] [facility] As of Date: 05/26/2023 (No Known [...] Encounter Status:Closed by EVANGELINA BURNETT on 05/26/23 [facility] 05-26-2023 Note HNO ID: [id number] Author: ?, ?, ? Service: ? Author [...] and brochure sent Lung Nodule Program Location: [facility] 05-18-2023 Note Patient Outreach ([facility]) BETH STARKEY ([id number]) 1940 F Date Time Provider Department 05/18/23 CROW BELLO [facility] During your visit today, we recorded the following information about you: Crow Bello, MOLD SANDER.CHANNEL OPENER OUTSOLES 05/18/2023 11:12 AM Signed Incidental Lung Nodule Enrollment Outreach attempt: 1st Attempt Outreach status: Complete Enrolled in Lung Nodule program: Referred Lung Nodule outreach: No outreach - Very small nodule, letter and brochure sent Lung Nodule Program Location: [place] [facility]erg[facility] As of Date: 05/18/2023 (No Known [...] Encounter Status:Closed by CROW BELLO on 05/18/23 [facility] 05-18-2023 Note HNO ID: [id number] Author: Crow Bello, CHELSEA.CHANNEL OPENER OUTSOLES Service: ? Author Type: Nurse Practitioner Type: Progress Notes Filed: 05/18/2023 11:12 AM Note Text: Incidental Lung Nodule Enrollment Outreach attempt: 1st Attempt Outreach status: Complete Enrolled in Lung Nodule program: Referred Lung Nodule outreach: No outreach - Very small nodule, letter and brochure sent Lung Nodule Program Location: [facility] 05-03-2023 Note HNO ID: [id number] Author: Nadine Cummins RN Service: Radiology Author [...] DATE: May 03, 2023 TIME: 1:00 PM [facility] 05-03-2023 Note HNO ID: [id number] Author: Kandy Aragon RT(R) Service: Radiology Author [...] RT Tess(R) May 03, 2023 1:19 PM [facility] 05-03-2023 History and physical note Heart , Vascular and [facility] [employer] DEPARTMENT OF VASCULAR SURGERY OUTPATIENT VISIT DATE [...] 4 - Moderate documented in this encounter [facility] 04-25-2023 Miscellaneous Notes Reason for call: Ms Starkey called,and she would like to schedule an appointment with vascular surgery Referred by Dr Judit Tate Home and cell number: [phone] Diagnosis: AAA Kind Regards Noirin documented in this encounter [facility] 04-22-2023 Miscellaneous Notes Patient: Beth Starkey Date of : 1940 Patient phone number: [phone] Referring Provider for the encounter: Marck Tate MD Requesting Provider: N/A Reason for requesting visit (RFV/signs and symptoms/diagnosis): Sent Telephone Encounter - updated tracking. Person calling: caregiver: Patrizia Return call to: self Medical Records/Insurance Card scanned into SpeakPhone: Yes Comments: N/A documented in this encounter [facility] 03-23-2023 Evaluation + Plan note Diagnostic Tests PendingCreatinine 03/23/23 Future Scheduled TestsCTA Abd Aorto-bilat/ iliofemoral runoff 03/22/23 [facility] 03-22-2023 Evaluation + Plan note Future Scheduled TestsCTA Abd Aorto-bilat/ iliofemoral runoff 03/22/23 [facility] 03-21-2023 Note History of Present I llness [...] 6 cm. 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 She denies chest pain or dyspnea. She does have some dyspnea on exertion. Beth Starkey has a history of 2 stents placed in her heart by Dr. Wells at [place]. Review of Systems Constitutional: no fever, no [...] with voice recognition artificial intelligence software, specifically [employer], [employer] and or [employer]. Substitutions may have occurred with voice recognition and artificial intelligence software. ATTESTATION: Documentation services were performed after patient or guardian consented to allow Dragon [employer]ient experience to record this visit. SANTOS military equipment specialist and provider reviewed before signing. SANTOS: [...] heart failure: Mother. Brenda Gehrig's disease: Father. [facility] Comment on above: Result Comment: Elec tronically Signed By: Genevieve CURRIE, Sha Bustos\.br\Date and Time Signed: 03/21/23 11:20 EDT\.br\Electronically Co-Signed By: Beth Sanders\.br\Date and Time Co-Signed: 01/20/23 12:18 EDT Evaluation + Plan note Future Appointments Appointment Date:10/11/2022 10:00:00 AM Scheduled Provider:Dyaron Jorgensen MD Location:[facility] Appointment Type:Vascular Follow Up ([facility]) Future Scheduled TestsCTA Abdomen and Pelvis 09/06/22CTA Chest 09/06/22 [facility] Evaluation + Plan note Future Appointments Appointment Date:10/11/2022 10:00:00 AM Scheduled Provider:Dayron Jorgensen MD Location:[facility] Appointment Type:Vascular Follow Up ([facility]) [facility] Evaluation + Plan note Future Scheduled TestsCTA Abd Aorto-bilat/ iliofemoral runoff 03/22/23 [facility] Evaluation note Diagnosis Chest pain, unspecified type- Primary [facility] 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 [facility] Diagnosis 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 Bilateral carotid artery stenosis Occlusion and stenosis of carotid artery without mention of cerebral infarction Other disorders of arteries, arterioles and capillaries in diseases classified elsewhere (HCC) [facility] Narrative No data available for this section [facility] Dis[facility] instructions No data available for this section [facility] No data available for this section [facility] (narrative)* Outpatient Procedure (Routine) - Authorized Specialty Diagnoses / Procedures Referred By Manjula Referred [facility] Diagnoses 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) Other disorders of arteries, arterioles and capillaries in diseases classified elsewhere (HCC) Procedures PVR ANK/HILL/TOE AWAIS VAS LAB NON-INVAS PHYSIOLOGIC STD EXTREMITY ART 2 LEVEL Jena Hicks MD [address] [place] [address] [place] [address] Referral ID Status Reason Start Date Expiration Date Visits Requested Visits Authorized [id number] Authorized Auto-Generat ed Referral 3 05/03/2024 1 1 * MRI/CT (Routine) - Authorized Specialty Diagnoses / Procedures Referred By Manjula jovel Referred To Contact CT IMAGING Diagnoses 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) Procedures CTA ABD/PEL WO/W IVCON CT ANGIO ABD&PLVIS CNTRST MTRL W/WO CNTRST JIMMIEGES Jena Hicks MD [address] [place] [address] [facility] [place] [address] Referral ID Status Reason Start Date Expiration Date Visits Requested Visits Authorized [id number] Authorized Auto-Generat ed Referral 3 06/02/2024 1 1 * MRI/CT (Routine) - Authorized Specialty Diagnoses / Procedures Referred By Contac t Referred To Contact CT IMAGING Diagnoses 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) Procedures CTA CHEST (NONGATED) WO/W IVCON CT ANGIOGRAPHY CHEST W/CONTRAST/NONCONTRAST Jena Hicks MD [address] [place] [address] [address] [facility] [place] [address] Referral ID Status Reason Start Date Expiration Date Visits Requested Visits Authorized [id number] Authorized Auto-Generat ed Referral 3 06/02/2024 1 1 * Outpatient Procedure (Routine) - Authorized Specialty Diagnoses / Procedures Referred By Manjula t Referred To Contact [facility] Diagnoses Bilateral carotid artery stenosis Procedures US CAROTID ARTERIES AWAIS VAS LAB DUPLEX SCAN EXTRACRANIAL ART COMPL BI STUDY Jena Hicks MD [address] [place] [address] [facility] [place] [address] Referral ID Status Reason Start Date Expiration Date Visits Requested Visits Authorized [id number] Authorized Auto-Generat ed Referral 3 05/03/2024 1 1 [facility] Summary Purpose Family History No Family [...] CNTRST MTRL W/WO CNTRST Jena Todd MD [address] [place] [address] [address] [facility] [place] [address] Referral ID Status Reason Start Date Expiration Date Visits Requested Visits Authorized [id number] Authorized Auto-Generat ed Referral 04/26/2023 05/25/2024 1 1 Specialty Diagnoses / Procedures Referred By Manjula t Referred To Contact CT IMAGING Diagnoses Chest pain, unspecified type Procedures CTA CHEST (NONGATED) WO/W IVCON CT ANGIOGRAPHY CHEST W/CONTRAST/NONCONTRAST Jena Hicks MD [id number] [facility] [place] [address] Referral ID Status Reason Start Date Expiration Date Visits Requested Visits Authorized [id number] Authorized Auto-Generat ed Referral 04/26/2023 05/25/2024 1 1 Additional Source Comments INFORMATION SOURCE (unrecogn ized section and content) DATE CREATED AUTHOR 11/14/2017 [facility] DATE CREATED AUTHOR AUTHOR'S ORGANIZ ATION 08/09/2022 [facility] DATE CREATED AUTHOR AUTHOR'S ORGANIZ ATION 05/27/2023 [facility] DATE CREATED AUTHOR AUTHOR'S ORGANIZ ATION 05/30/2023 [facility] DATE CREATED AUTHOR AUTHOR'S ORGANIZ ATION 05/31/[address] [facility] dical Specialists EPIC Patient Care team informatio n (unrecognized section and content) Staff Cytotechnologist Relationship Specialty Start Date End Date Marck Tate MD [address] [place] [address] Family [facility] 04/22/23 Staff Cytotechnologist Relationship Specialty Start Date End Date Marck Tate MD [address] [place] [address] [facility] 04/22/23 Staff Cytotechnologist Relationship Specialty Start Date End Date Marck Tate MD [address] [place] [address] Family [facility] 04/22/23 Staff Cytotechnologist Relationship Specialty Start Date End Date Marck Tate MD [address] [facility] [place] [address] Family Medicine 04/22/23 Source Comments (unrecognize d section and content) In the event this informatio n is protected by the Federal Confidentiality of Alcohol and Drug Abuse Patient Records regulations: The Federal rules restrict any use of the information to criminally investigate or prosecute any alcohol or drug abuse patient.[facility] the event this information is protected by the Federal Confidentiality of Alcohol and Drug Abuse Patient Records regulations: The Federal rules restrict any use of the information to criminally investigate or prosecute any alcohol or drug abuse patient.[facility] Hospital[facility] the event this information is protected by the Federal Confidentiality of Alcohol and Drug Abuse Patient Records regulations: The Federal rules restrict any use of the information to criminally investigate or prosecute any alcohol or drug abuse patient.[facility] Hospital[facility] the event this information is protected by the Federal Confidentiality of Alcohol and Drug Abuse Patient Records regulations: The Federal rules restrict any use of the information to criminally investigate or prosecute any alcohol or drug abuse patient.[facility] Hospital[facility] the event this information is protected by the Federal Confidentiality of Alcohol and Drug Abuse Patient Records regulations: The Federal rules restrict any use of the information to criminally investigate or prosecute any alcohol or drug abuse patient.[facility] Reason for Visit (unrecogniz ed section [...] BE BASED ON THE PRIMARY CLINICAL RECORDS. [facility] [employer] [facility]. provides no warranty or guarantee of the accuracy or completeness of information in this document.
[2023-06-20 09:59] LABS: Basophils Absolute Auto 0.1 10^3/uL (0.0-0.1); Eosinophils Absolute Auto 0.2 10^3/uL (0.0-0.7); Eosinophils Percent Auto 2.4 % (0.9-7.0); Hematocrit 42.1 % (36.0-48.0); Hemoglobin 13.3 g/dL (12.0-16.0); Immature Granulocytes Abs Auto 0.05 10^3/uL (0.00-0.03); Immature Granulocytes Pct Auto 0.5 % (0.0-0.5); Lymphocytes Absolute Auto 1.7 10^3/uL (1.2-3.8); Lymphocytes Percent Auto 17.8 % (20.5-60.0); Mean Corpuscular HGB Conc 31.6 g/dL (29.9-35.2); Mean Corpuscular Hemoglobin 28.5 pg (26.7-34.0); Mean Corpuscular Volume 90.3 fL (81.0-99.0); Mean Platelet Volume 9.7 fL (9.5-13.5); Monocytes Absolute Auto 0.6 10^3/uL (0.3-0.8); Monocytes Percent Auto 6.2 % (1.7-12.0); Neutrophils Absolute Auto 6.7 10^3/uL (1.4-6.5); Neutrophils Percent Auto 72.1 % (43.0-75.0); Platelet Count 207 10^3/uL (150-450); Red Blood Count 4.66 10^6/uL (4.20-5.40); Red Cell Distribution Width 14.3 % (11.0-15.0); White Blood Count 9.3 10^3/uL (4.0-11.0)
[2023-06-20 10:54] LABS: Alanine Aminotransferase 23 U/L (14-59); Albumin Globulin Ratio 0.8; Albumin Level 3.3 g/dL (3.4-5.0); Alkaline Phosphatase 129 U/L (46-116); Anion Gap 10.9; Aspartate Amino Transferase 15 U/L (15-37); BUN Creatinine Ratio 30.4; Bilirubin Total 0.3 mg/dL (0.2-1.0); Calcium 9.2 mg/dL (8.5-10.1); Carbon Dioxide 31.9 mmol/L (21.0-32.0); Chloride 103 mmol/L (98-107); Chol HDL Ratio 3.3; Cholesterol 167 mg/dL (<=200); Estimated GFR (African America >60 (>=60); Estimated GFR (Non-African Ame >60 (>=60); Free T3 2.87 pg/mL (2.18-3.98); Globulin 4.1 g/dL; Glucose 138 mg/dL (74-106); HDL Cholesterol 50 mg/dL (40-60); Potassium 4.8 mmol/L (3.5-5.1); Sodium 141 mmol/L (136-145); Thyroid Stimulating Hormone 1.562 uIU/mL (0.358-3.740); Total Protein 7.4 g/dL (6.4-8.2); Triglycerides 171 mg/dL (<=150); VLDL CHOLESTEROL 34.2 mg/dL
[2023-06-20 11:34] LABS: Estimated Average Glucose 134 mg/dL; Glycohemoglobin A1C 6.3 % (4.5-6.2)
== END 2023-06-20 09:15 | disposition home or self-care (01) ==
LOC: LAB 09:15
PROVIDERS: PCP Family Medicine; Visit Provider Family Medicine
DX: R60.9 Edema, unspecified (principal); G47.00 Insomnia, unspecified; E55.9 Vitamin D deficiency, unspecified; E78.5 Hyperlipidemia, unspecified; K59.00 Constipation, unspecified; R73.09 Other abnormal glucose; D64.9 Anemia, unspecified
CPT/HCPCS: 36415; 80053; 80061; 82306; 83036; 83540; 84436; 84443; 84481; 85025

== ENCOUNTER 2023-11-16 11:11 | Outpatient (OUT) | payer MEDICARE, OTHER, SELFPAY ==
--- NOTE | 2023-11-16 11:13 | US_ITS ---
[address] [address] Patient Name: ADELA PARDO MRN: [id number] date: 1940 Sex: F Assigned Patient Location: [facility] Current Patient Location: [facility] Accession/Order Number: [id number] Exam Date: 11/16/2023 11:14 Report Date: 11/16/2023 12:58 At the request of: FORREST SALAZAR Procedure: US pelvis transvaginal EXAMINATION: US pelvis transvaginal HISTORY: LEFT OVARIAN CYST COMPARISON: 06/01/2023, 03/30/2023 FINDINGS: The uterus is normal in size, contour and echotexture measuring 6.1 x 2.8 x 5.2 cm, anteverted, anteflexed. Endometrium measures 3 mm, normal The right ovary is not visualized Left ovary is 5.8 x 4.4 x 5.1 cm. Normal color and Doppler flow. Area of anechoic echogenicity measuring 4.7 x 4.3 x 5.4 cm, simple cyst No free fluid US/US pelvis transvaginal IMPRESSION: Stable 5.4 cm left ovarian simple cyst Electronically authenticated by: SANDOVAL AGUILAR Date: 11/16/2023 12:58
--- OUTSIDE RECORDS SUMMARY | 2023-11-16 11:19 | XMS_ITS | CCD ---
Author Organization [facility] Care Team Providers Care 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 Name Role Phone PHYSICIAN, DEFAULT Unavailable Unavailable PHYSICIAN, DEFAULT Unavailable Unavailable MARCK TATE Unavailable Unavailable HOY ., DR ACHARYA Admitting Unavailable HOY ., DR ACHARYA Attending Unavailable HOY ., DR ACHARYA Primary Care Unavailable HOY ., DR ACHARYA Consulting Unavailable PATERSON, DR SANDOVAL Ferguson Consulting Unavailable HOY ., [...] Unavailable HOY ., DR ACHARYA Consulting Unavailable Nelsony Marck Primary Care Physician Marck Tate MD Unavailable JENA HICKS Referring Unavailable JENA HICKS Attending Unavailable Sha Vallejo Attending Unavaila ble NONE, XXXX Referring Unavailable Jameel, Mohedmond FManish Attending Unavailable Jameel, Mohamed FManish Admitting Unavailable Marck Tate Referring Unavailable Sha Vallejo Attending Unavaila ble NONE, XXXX Referring Unavailable Jameel, Mohamed FManish Attending Unavailable Jameel, Mohamed F. Admitting Unavailable Jameel, Mohamed F. Referring Unavailable Jameel, Mohamed FManish Attending Unavailable Jameel, Mohamed FManish Admitting Unavailable NONE, XXXX Referring Unavailable Sha Vallejo Attending Sha Jeronimo Admitting Nadira molina NONE, XXXX Referring Unavailable FORREST SALAZAR Attending Unavailable FORREST SALAZAR Attending Unavailable FORREST SALAZAR Attending Unavailable Allergies Allergy Classification Reported Allergen(s) Allergy Type Date of Onset Reaction(s) Facility (1 source) No Known Medication Allergies; Translations: [No Known Medication Allergies] Propensity to adverse reactions (disorder) [facility] Repository Medications Current Medications Medication Drug Class(es) [...] tablet (2 sources) Nonergot Dopamine Agonist Start: 04-04-20 take 1 tablet by mouth once pramipexole [...] disease (1 source) Atherosclerotic heart disease of hoh coronary artery without angina pectoris; Translations: [ASHD [place] CA W/O ANGINA PECTORIS] Onset: 07-18-2022 Chronic [...] well. She has reached out to the [facility] and has been assigned a doctor for [...] However, during her recent visit to the [facility], she was informed that her aorta measured [...] routine follow-up. She had an evaluation at [facility] for her aneurysm. She also got a CT angiogram with runoff. This showed the aneurysm is 5.9 cm by testing at [place], but measured 5.3 cm. As per patient at [facility], she has an occluded right SFA, and [...] with voice recognition artificial intelligence software, specifically [employer], [employer] and or [facility]. Substitutions may have occurred with voice recognition and artificial intelligence software. Documentation services were performed after patient or guardian consented to allow [employer] to record this visit. SANTOS retail selling specialist and provider reviewed before signing. SANTOS: [...] Known Medicat (more content not included)... Normal [facility] Comment on above: Result Comment: Elec tronically Signed By: Genevieve CURRIE, Sha Bustos\.br\Date and Time Signed: 05/29/23 20:33 EST\.br\Electronically Co-Signed By: Annmarie Mccraybr\Date and Time Co-Signed: 05/12/23 12:52 EST Physician Orderon 05-13-2023 Physician Order [id number] 5#1.00TIFF Normal [facility] CNOVon 05-03-2023 CNOV Office Visit (VASSMN) BETH STARKEY ([id number]) 1940 F Date Time Provider Department 05/03/23 12:00 PM JENA HICKS During your visit today, we recorded the following information about you: Temperature Pulse Respiration Blood pressure 98.3 degrees 86/minute 16/minute 103/59 Weight Height 65.8 kg 1.524 m Jena Hicks MD 05/03/2023 3:31 PM Signed [facility] [place] DEPARTMENT OF VASCULAR SURGERY OUTPATIENT VISIT DATE [...] E (more content not included)... Normal [facility] CTA ABD/PELV WO/W IVCONon CTA ABD/PELV WO/W IVCON * * *Final Report* * * DATE OF EXAM: May 03 2023 1:27PM [facility] [place] - CTA ABD/PELV WO/W IVCON / [...] stable BONES: degenerative changes of the spine Insulation Sprayer (topogram) images: No additional findings. IMPRESSION: * [...] content not included)... Invalid Interpretation Code [facility] CTA CHEST (NONGATED) WO/W IV CONon 05-03-2023 CTA CHEST (NONGATED) WO/W IVCON * * *Final Report* * * DATE OF EXAM: May 03 2023 1:27PM [facility] [place] - CTA CHEST (NONGATED) WO/W IVCON [...] stable BONES: degenerative changes of the spine Insulation Sprayer (topogram) images: No additional findings. IMPRESSION: * [...] content not included)... Invalid Interpretation Code [facility] HISTORY PHYSICALon HISTORY PHYSICAL HNO ID: [id number] Author: Jena Hicks MD Service: ? Author Type: Physician Type: HANDP Filed: 05/03/2023 3:31 PM Note Text: [facility] [place] DEPARTMENT OF VASCULAR SURGERY OUTPATIENT VISIT DATE [...] pupils (more content not included)... Normal [facility] Charlie 04-25-2023 CNPN Telephone (PODCCP) BETH STARKEY ([id number]) 1940 F Date Time Provider Department 04/25/23 NO PCP PODCCP During your visit today, we recorded the following information about you: Alondra Quiros 04/25/2023 4:23 PM Signed Reason for call: Ms tSarkey called,and she would like to schedule an appointment with vascular surgery Referred by Dr Judit Tate [place] and cell number: [phone] Diagnosis: AAA Kind Regards Alondra Allergies As of Date: 04/25/2023 (Not on File) Date Reviewed: Never Reviewed Reason for Visit: Appointment [186] Problem List As Of Date: 04/25/2023 (None) Encounter Status:Closed by ALONDRA QUIROS on 04/25/23 [facility] CNPNon 04-22-2023 CNPN Telephone (REFPHY) BETH STARKEY ([id number]) 1940 F Date Time Provider Department 04/22/23 NO ONE (HISTORICAL) REFPHY During your visit today, we recorded the following information about you: Patrizia Orozco 04/22/2023 10:06 AM Signed Patient: Beth Starkey Date of : 1940 Patient phone number: [phone] Referring Provider for the encounter: Marck Tate MD Requesting Provider: N/A Reason for requesting visit (RFV/signs and symptoms/diagnosis): Sent Telephone Encounter - updated tracking. Person calling: caregiver: Patrizia Return call to: self Medical Records/Insurance Card scanned into [employer]: Yes Comments: N/A Allergies As of Date: 04/22/2023 (Not on File) Date Reviewed: Never Reviewed Reason for Visit: External Referrals/resources [909] Problem List As Of Date: 04/22/2023 (None) Encounter Status:Closed by PATRIZIA OROZCO on 04/22/23 [facility] Outside Radiologyon 04-20-20 23 Outside Radiology [id number] #1.00TIFF [facility] Consent for Treatmenton Consent for Treatment [id number] #1.00TIFF [facility] Lab - Otheron 03-23-2023 Lab - Other [id number] 0#1.00TIFF [facility] Physician Orderon 01-21-2023 Physician Order [id number] #1.00CD:127 Normal [facility] Consent for Treatmenton 12-23 Consent for Treatment [id number]# 1.00CD:127 Normal [facility] Progress Note-Nurseon 2022 Progress Note-Nurse [id number] #1.00CD:127 Normal [facility] Consent for Treatmenton 09-21 Consent for Treatment [id number] #1.00CD:127 Normal [facility] Heart and Vascular Office/Cl inic Noteon 10-11-2022 [...] failure: Mother. Brenda Gehrig's disease: Father. Normal [facility] Comment on above: Result Comment: Elec tronically Signed By: Jameel CURRIE, Dayron Loaiza\.br\Date and Time Signed: 10/11/22 10:20 EDT Physician Orderon 09-28-2022 Physician Order [id number] 7#1.00CD:127 Normal [facility] CHEMISTRYOrdered By: SYSTEM SYSTEM on 09-24-2022 Creatinine [...] 370 Contrast amount in ml's: 100 Normal [facility] CTA Cheston 09-24-2022 CTA Chest Exam Date/Time: [...] 370 Contrast amount in ml's: 100 Normal [facility] Consent for Treatmenton Consent for Treatment [id number] #1.00CD:127 Normal [facility] Creatinineon 09-24-2022 Creatinine [Mass/Vol] 0.8 mg/dL Normal 0.5-1.3 [facility] Comment on above: Performed By: #### 2 [id number], [id number] ####[facility] [address] [place] [address] eGFRon 09-24-2022 GFR/1.73 sq M.predicted among non-blacks MDRD (S/P/Bld) [Vol rate/Area] 74 mL/min/1.73 m2 Normal >=59 [facility] Comment on above: Order Comment: Order added by Discern Expert. Result Comment: Senior Windows Systems Administrator rogelio kidney disease could be indicated at eGFR's of less than 60 mL/min/1.73m2. Kidney failure is indicated at less than 15 mL/min/1.73m2. Performed By: #### 2 [id number], [id number] ####[facility] [address] [place] [address] Physician Orderon 09-23-2022 Physician Order [id number] 3#1.00CD:127 Normal [facility] Coding Summary.on 09-09-2022 Coding Summary. CD:[id number] Ww+PGhlYWQ+QZ2AHFAmQ 91naASibV9nF8CUOUuPT ywgQVBQTElOSyIgbmFtZ Y2qzBLhYITd IC8+RA9rWCZzBzjznPEw g9O8dTQ4W28nef9pTKwf qDY8KKQqQsWehjccv1as cJw2PRkaOkdsIhAi WTFrpD48MRN0eF39Ww30 xBXkqOJyw8flgWq2RrKb WVEkITO7pJedVAkdg4Zl THXgB46xyWMty7W5 IGNvbGxhcHNlOyBlbXB0 tE1fWSsjwcdli4orqqup Lez6eo61kAXle1M4uWO9 H0AnfjI7ASDhrSFt ScjojANRfM3lecuih1yp cyjxMsRmCBPdGDz7WTm0 PCGkwGhyQkXqBA07BJY1 COHqkiJnG8KkPLKq gLwqGdC2k1T2Vf1PP7JS CsayW7OBOHIECQuweYU+ KX59lv95C6UlEywhXnh6 XDToTMN4pMW4aV1w DHJzSYsjt9C8fMG2Z6Au qzGblh5lc4jqDMYfEYzq P51omRSfq1T4RTZfhOT6 FTTdwUrdBhVmdD74 Oyc+VCFhzOsam1LnGwij o3dce6wtzVr0EithUNUn nwOjtJsbCBV5y8JaOe5n KWNmnAP7eEV2tW8n LvCiRmP8ZQmkR913ZgMy mCZqSawcU80fN8FpaYS+ BZNkUmo7VBNrsWwxYQ5c G5MgUAIcgvswyELw rXxbVV3zVDAimthaNXFb tC0bQTOoO7z4WgLmQuH4 HPjiD1KwJUKxnitoPc30 aM1xPhPgXgE6GSgv E0ShrbC5IDBqnPXbEUhn PUQ4D50cw5E6BADkPMNh SOQ1tLI5oS3jwCkprovb bGVmdDsgdmVydGlj BOqtAJfpS294LEQamJdo PkNvZGluZyBEYXRlOiAg MDQvMjAvMjAyMzwvdGQ+ QGBgCIT3jGwfGYSe pXBtUUyxVr6gxAjftGvn ZJ4pPHUmciruZJIsmJ8q OJElwGTweQimNT7lIOId rnaph603GmBoGJF8 VQWceAHnY0VneP7oSmJh PCWfRYShK3FdtDXnIRcu V007ZXljCsY0WGQialWs W1KpJSNneEnoBaX9 f1Y1Ll5Wh2YaxsruH5Ql dGBcXcGpNznqWOh3E2Az PjwvdHI+CV73ZQKwEU64 GWi5FYI3gZdbKSev WEYxG2EiiD7sKgVdBHYt ZGRkOyc+PHRhYmxlIHdp ZHRoPScxMDAlJyBzdHls JN8qUf7vMKGzQEOu uQkroHRwFmTty3zpUOMp HRmvAC8sqIinG1AapTO4 XTFja2w6Ua71E71iN4Qc dXA+SCMawOV7sHC3 oG4vLiCcYdB3YVyqG075 VwBhbKIpRlzlx8fye1yt hBw7HiC8XLGjfzVjkElq CDJ3y1LuLt11I69q IHdpZHRoPSIxNSUiIHZh vXucon2lrS8bSy2+PGNv hEQ3hWV1eO6hDgEfZfA5 OFbsQ904IhAnbPCo Unjpk8gyj8hquDl0SgUw KTEhjvGmkChhSDH3o1Yi Aw01K7UnnQmvd8SsEaq9 sr34xWNqb5W9nOM7 I4WhDVMpvmnvmIDohEwz YM8jKWHpqbosEZUmrR6f LPTzL2t2UiBzOjE2JPsj T2QyznD9ZYFrqOEl UMRaeHZUhH6kqgoyw1hw lzzrOuYsHUHaAUj8VLl9 PMYywCxdNuHaERP8BtW0 AVV7tVXuaR7kdKdh niadyT4mImy+HIQ1oCLt sWBDCB4eGrnpaBC+PHRk NXC4gPtyWOjdJZMfwK5b NQBqP3u2HsXoXaE4 XIobH5XgqcY4NWGvtSRr PDHfzJBDbM5znihvy7aa gkdsKkLrLCWpECp7OOu9 LWFsaWduOiBsZWZ0 TiU1ZPX1cDXwqS7udGxb mrjxvC9xDbs+QmlydGgg VUE5HJv8R0HjQvx5MTLj yHmuZW0gnOCiNPux Eg5kgLieoVqdYI5dZOGy ysxqk940XgXqw5ksISZz pCXjDTktNTS6M69qj1L3 BGTfCPTzWHC5tRZ5 pH7vyAhlvgyqiXGchCrm wuXjvZedKUjdKVesY784 WSHnqZxaHyRdJSj5I9Tp Tla1WWIoqQolJO7t gDFwZRjiEy7qtPglfSpe TK3vBHHoritjt350RmUf o8mkKIEdiEInQSrgNOQ8 Z59en9S0EUYwWELx LXP2jFA6aG5rqAyrwamq bGVmdDsgdmVydGljYWwt YDqnC540LTPeaBwuWaAy oYh1I5SvQvi6ZBWd hMxrNW1ptWJtGUtsYv2h eUbyjDthPM8cZXYiwusx g445AwCgz4gjRDErhGZn JUbiTSN7F70mg5O0 GTHeJEUzVQN0cLO8oP8n bGlnbjogbGVmdDsgdmVy jYzzSCxmOQtdM736ZXIc cDsnPlBhdGllbnQg XPzkYAo8H7AcCikqbWE+ YC46JRSbJE47fJUteFMn d2pkaVt7LoChCPCjSVC9 vSceOPeer1FwVMNc H85ggDDwr5I8NQXlnMic fMBtEbLvnXU9cV1wJHay umxxp7mxdsodZbczx9bw lr30hR57G17wFVat ZHRoPSIzMCUiIHZhbGln mj4fiO0aXp8+PGNvbCB3 cPD7iL9jDJPuDnM4YNov U999GaKyeNWlZahp v2jrn0cyaFu7UjK6SULb bkSpbXplFJM7f9PrKy22 C08vMVogLXThKQQkUQEl AWIytFlizo0mmE8j Ii8+ZOLhkZN8lOH5hD9c ZjLqZjU5DNepD335UyUp zWEvDegiC15lA5DvuCG+ ELLbAuc5SOSypBon MJ0upWGnJKxoFl3zZRF4 JqGqWjKnMSvyD0QkDWOz rjmekpszwDC9ERYtBQCf fK39Xg7ykPsvFTUv jUMSnB9bicpbv4laqkms WeBsOVNmIAp8EJf4CNHd jQdkRzNkNWC6XmM2GSV8 jAYnyA4jiKqeycwg oT2oX5NfAQCtkyteCa56 zF4uGiZqLeL4EKskYrc+ P9MOMjasLSYSTWRHAA56 EB95uXFae3I1tHJ9 Y6WmTUVpprtyxinbvSC2 YTUyBDZhdV80oIPcRJkr Cd5ix5P3e120TZTiPGIo pF59Sb0jgHtlAEEy vBVZvJ7yiwscr7ieiymb PrUhZGRcGMh6DCx1HZMz bGnvIjXeDLP2EvE4KGN2 lNHxvR9wcSgwsneb lA7yBph+MTAvMjEvMTk0 MTwvdGQ+QFYvVMB9qUcn VEmnXMPexG9dLMXrH8q5 UwEoVbA2FAwjN9Em FJCpvyewGk24wM7dByQt EkY1QAerG5AckzZ0ZDOa kOLaDSxhEZW1X08wi9P9 GZOrORJmNNE0mTZ2 yM2kzJdgzgrodPUpfGss ibHimWljEXhtPAneI718 IHRvcDsnPjgxIFllYXJz BF54XV58qCJwm1Q9 zQG3V4HmFDQwkzrmirgd uVF1IWWrQAAzqO20xHJw RFmqAp3ch3O8g846SWZq JMIzyU95Mc4lbWgb MRTuzSRJlP5etqoxn3dw vlizQoSsAQYgKEy4QPw8 WZIymEgtBxDtXBS6EpJ4 OTL4bSNsfD1czPor gdbrxQ0bOzh+RmVtYWxl GN90KN75zXTnb4J1kEP9 G0GjQHUzxbqimunbiBY7 TEDpAYRdoT63iDPb FLrjFo8er8E8o107MZKu OHMgqJ69Fi0mrCpePZPn vVFCgM6kjyqea6uxpsci DsPiYUCpDTi5QHo5 ZJJnmMguJhFvCZC0VsI7 MEF5zGBibC3wqGmsakhd sM1rFec+W1J2vIJ3gVWh dDwvdGQ+WK80kf48 Y4TqYiblCif9IVTuXQI9 yLT0oQ6tPUMaXGmko9S7 cSY1L1DbaqXoyg7es7xo WWGmUSnsY42mdSZi k9H0QNRdcPL8LALyuUik JzWncZ66Cok+PGNvbGdy h0UpQnunc2nah0hyjKa1 IjMwJSIgdmFsaWdu KBY9n5WzTj58D92wFPms ZHRoPSIzMCUiIHZhbGln sd5fyR4tAp3+PGNvbCB3 mVP7rH8nYkHaOlJ2 RTahD096GlYnwJTzXavp d2mkt1ifqMf9ZkGkRUEc heGoxMnnKYV6f2DbTz79 A2RniVkcj1XpSyg7 mh07vBEtc2O6pDV2X1Cz HWKrparnkAFcsJozWK0y AHXuzztcZKCreB1yVPRf G3c9ZsJwTmO6XUdq J8UlioV6MPEmtUAhIKRv lVAYzX4dxluzx8fdsokt TtNqLETzPKs3BZc6GVEx uGkhMnTiXDY3GrA6 SGD7oCMqaJ7dwNbczmlb zU3uWwl+HRp8n0hbtXEe TO9ttZC5FG93HC43pCRk r6V4kNU5S9PoALCo iueuegnqhAG2JJXtITKh lY50Mr2umMiiGg2dACIt FAP2PKTfrJIbA1OkqN5p TqQePTSgWIQeB7Lg eODgHFijC556KMhjViJ5 UHJmvtMtX1CgAVCkoUeg XtT5c9V2Pa6BTN27HY05 II80sXVqr9G2mZL8 H6AeLYZnhzkystdbbMS5 PYAoJNSvkF42Xa2awFze Us2xLITuKLX3CAHwfZUg N7StwQ3mWyGcFZDb UYBaY7IybCPjQZyeG084 OTufKfZ1LUJuudRyA6Eq LSMorMasXuA0o7G1Ni6I Pg18ZE32LL13pOBq f7G6bXD4H3OyNSFkmrfv tykvvTL3TFSwLVVvwX14 Sp1lnKucWr4vRBKpNYJ4 RLEqxIHnQ9CavV1f MuDmIDKjNQTqT8CxyGCe GRmlR210QNwwYrF8UEYx zkVnH4PaGETaqLkdQzG8 b2I7Hz4ITGxgydh2 S0MkIsnjyLP+SM14FWLj CO14mSQnsZOev6vleUx6 FmVpBSCbSOD5lQahOFjk g0NjXLAjR12gtNCe z1F4LPUu (more content not included)... Normal [facility] Consent for Treatmenton 08-21 Consent for Treatment [id number] #1.00CD:127 Normal [facility] Heart and Vascular Office/Cl inic Noteon 09-06-2022 [...] failure: Mother. Brenda Gehrig's disease: Father. Normal [facility] Comment on above: Result Comment: Elec tronically Signed By: Jameel CURRIE, Dayron Loaiza\.br\Date and Time Signed: 09/06/22 10:16 EDT Referrals Officeon 3 Referrals Office [id number] 9#1.00CD:127 Normal [facility] CT CHEST WO CONon 08-02-2022 CT CHEST [...] C. DIFFICILE PCR Negative Normal NEGATIVE [facility] Comment on above: Performed By: #### C DIFPOC #### [facility] [address] [address] [address] Spencer Braun OCC BLD IMMUNO SCREENon OCCULT BLOOD Negative Normal NEGATIVE [facility] Comment on above: Performed By: #### C BC #### [facility] [address] [address] [address] Spencer Braun INSULINon 07-15-2022 Insulin 17.7 uIU/mL Normal 2.6-24.9 [facility] Comment on above: Performed By: #### I NSULIN ####[facility] [address] [address]Dr[address] Spencer Braun BNPon 07-14-2022 Natriuretic peptide B (Bld) [Mass/Vol] 197.0 pg/mL Normal <=1,800.0 [facility] Comment on above: Performed By: #### B E LEARNING DESIGNER, LIPID, CMP, T7, TSH #### [facility] [address] [address] [address] Spencer Braun CBC AUTO DIFFon 07-14-2022 BASO # 0.1 103/ul Normal 0.0-0.1 [facility] Comment on above: Performed By: #### C BC #### [facility] [address] [address] [address] Spencer Braun Basophils/100 WBC (Bld) 0.9 % Normal 0.2-2.0 [facility] Comment on above: Performed By: #### C BC #### [facility] [address] [address] [address] Spencer Braun EO # 0.2 103/ul Normal 0.0-0.7 [facility] Comment on above: Performed By: #### C BC #### [facility] [address] [place] [address] Dr. Spencer Braun Eosinophils/100 WBC (Bld) 2.5 % Normal 0.9-7.0 [facility] Comment on above: Performed By: #### C BC #### [facility] [address] [place] [address] Dr. Spencer Braun Erythrocyte distribution width (RBC) [Ratio] 13.8 % Normal 11.0-15.0 [facility] Comment on above: Performed By: #### C BC #### [facility] [address] [place] [address] Dr. Spencer Braun Hematocrit (Bld) [Volume fraction] 45.1 % Normal 36.0-48.0 [facility] Comment on above: Performed By: #### C BC #### [facility] [address] [place] [address] Dr. Spencer Braun Hemoglobin (Bld) [Mass/Vol] 14.7 g/dL Normal 12.0-16.0 [facility] Comment on above: Performed By: #### C BC #### [facility] [address] [place] [address] Dr. Spencer Braun IG # 0.04 10e3/ul Critically high 0.00-0.03 [facility] Comment on above: Performed By: #### C BC #### [facility] [address] [place] [address] Dr. Spencer Braun IG % 0.5 % Normal 0.0-0.5 [facility] Comment on above: Performed By: #### C BC #### [facility] [address] [place] [address] Dr. Spencer Braun LYMPH # 1.6 103/ul Normal 1.2-3.8 [facility] Comment on above: Performed By: #### C BC #### [facility] [address] [place] [address] Dr. Spencer Braun Lymphocytes/100 WBC (Bld) 20.4 % Critically low 20.5-60.0 [facility] Comment on above: Performed By: #### C BC #### [facility] [address] [place] [address] Dr. Spencer Braun MANUAL DIFF REQ NO Normal [facility] Comment on above: Performed By: #### C BC #### [facility] [address] [place] [address] Dr. Spencer Braun MCH (RBC) [Entitic mass] 28.8 pg Normal 26.7-34.0 [facility] Comment on above: Performed By: #### C BC #### [facility] [address] [place] [address] Dr. Spencer Braun MCHC (RBC) [Mass/Vol] 32.6 g/dL Normal 29.9-35.2 [facility] Comment on above: Performed By: #### C BC #### [facility] [address] [place] [address] Dr. Spencer Braun MCV (RBC) [Entitic vol] 88.3 fL Normal 81.0-99.0 [facility] Comment on above: Performed By: #### C BC #### [facility] [address] [place] [address] Dr. Spencer Braun MONO # 0.5 103/ul Normal 0.3-0.8 [facility] Comment on above: Performed By: #### C BC #### [facility] [address] [place] [address] Dr. Spencer Braun Monocytes/100 WBC (Bld) 6.5 % Normal 1.7-12.0 [facility] Comment on above: Performed By: #### C BC #### [facility] [address] [place] [address] Dr. Spencer Braun NEUT # 5.4 103/ul Normal 1.4-6.5 [facility] Comment on above: Performed By: #### C BC #### [facility] [address] [place] [address] Dr. Spencer Braun Neutrophils/100 WBC (Bld) 69.2 % Normal 43.0-75.0 [facility] Comment on above: Performed By: #### C BC #### [facility] [address] [address] [address] Spencer Braun Platelet mean volume (Bld) [Entitic vol] 9.1 fL Critically low 9.5-13.5 [facility] Comment on above: Performed By: #### C BC #### [facility] [address] [address] [address] Spencer Braun PLT 190 103/ul Normal 150-450 [facility] Comment on above: Performed By: #### C BC #### [facility] [address] [address] [address] Spencer Braun RBC 5.11 106/ul Normal 4.20-5.40 [facility] Comment on above: Performed By: #### C BC #### [facility] [address] [address] [address] Spencer Braun WBC 7.7 103/ul Normal 4.0-11.0 [facility] Comment on above: Performed By: #### C BC #### [facility] [address] [address] [address] Spencer Braun FREE THYROXINE INDEX T7on FTI 2.87 Normal 1.30-4.50 [facility] Comment on above: Performed By: #### B E LEARNING DESIGNER, LIPID, CMP, T7, TSH ####[facility] [address] [place] [id number]. Spencer Braun T3U 33.0 % Normal 30.0-39.0 [facility] Comment on above: Performed By: #### B E LEARNING DESIGNER, LIPID, CMP, T7, TSH ####[facility] [address] [place] [id number]. Spencer Braun T4 [Mass/Vol] 8.70 ug/dL Normal 4.80-13.90 [facility] Comment on above: Performed By: #### B E LEARNING DESIGNER, LIPID, CMP, T7, TSH ####[facility] [address] [place] [id number] Braun GLYCOHEMOGLOBIN A1Con 2022 ADA RECOMMENDATION SEE BELOW Normal [facility] Comment on above: Result Comment: ADA RECOMMENDED LIMIT 4.0 - 6.0 ADA THERAPEUTIC TARGET < 7.0 ACTION SUGGESTED > 7.0 Performed By: #### A 1C ####[facility] [address] [place] [id number] Braun Glucose [Mass/Vol] 123 mg/dL Normal [facility] Comment on above: Performed By: #### A 1C ####[facility] [address] [place] [address]DrManish Braun HbA1c (Bld) [Mass fraction] 5.9 % Normal 4.5-6.2 [facility] Comment on above: Performed By: #### A 1C ####[facility] [address] [place] [address]DrManish Braun IRONon 07-14-2022 Iron [Mass/Vol] 70.0 ug/dL Normal 50.0-170.0 [facility] Comment on above: Performed By: #### V ITAD, IRON #### [facility] [address] [place] [address] [address] Spencer Braun LIPID PROFILEon 07-14-2022 CHOL-HDL RATIO NORM SEE BELOW Normal [facility] Comment on above: Result Comment: 3.3 - 4.4 LOW RISK 4.4 - 7.1 AVERAGE RISK 7.1 - 11.0 MODERATE RISK >11.0 HIGH RISK Performed By: #### B E LEARNING DESIGNER, LIPID, CMP, T7, TSH ####[facility] [address] [place] [phone] Braun Cholesterol [Mass/Vol] 180 mg/dL Normal <=200 [facility] Comment on above: Performed By: #### B E LEARNING DESIGNER, LIPID, CMP, T7, TSH ####[facility] [address] [place] [phone] Braun Cholesterol in HDL [Mass/Vol] 50 mg/dL Normal 40-60 [facility] Comment on above: Performed By: #### B E LEARNING DESIGNER, LIPID, CMP, T7, TSH ####[facility] [address] [place] [phone]. Spencer Braun Cholesterol in LDL [Mass/Vol] 105.8 mg/dL Normal [facility] Comment on above: Performed By: #### B E LEARNING DESIGNER, LIPID, CMP, T7, TSH ####[facility] [address] [place] [phone]. Spencer Braun Cholesterol.total/Cho lesterol in HDL [Mass ratio] 3.6 {ratio} Normal [facility] Comment on above: Performed By: #### B E LEARNING DESIGNER, LIPID, CMP, T7, TSH ####[facility] [address] [place] [phone]. Spencer Braun HDL NORMAL > or = 60 mg/dl - LOW CARDIOVASCULAR RISK <40 mg/dl - HIGH CARDIOVASCULAR RISK Normal [facility] Comment on above: Performed By: #### B E LEARNING DESIGNER, LIPID, CMP, T7, TSH ####[facility] [address] [place] [address]Dr. Spencer Braun LDL CALC NORMAL SEE BELOW Normal [facility] Comment on above: Result Comment: <100 mg/dl OPTIMAL 100 - 129 mg/dl NEAR OR ABOVE OPTIMAL 130 - 159 mg/dl BORDERLINE HIGH 160 - 189 mg/dl HIGH >190 mg/dl VERY HIGH Performed By: #### B E LEARNING DESIGNER, LIPID, CMP, T7, TSH ####[facility] [address] [place] [id number]. Spencer Braun Triglyceride [Mass/Vol] 121 mg/dL Normal <=150 [facility] Comment on above: Performed By: #### B E LEARNING DESIGNER, LIPID, CMP, T7, TSH ####[facility] [address] [place] [id number]. Spencer Braun VLDL CALC 24.2 mg/dL Normal [facility] Comment on above: Performed By: #### B E LEARNING DESIGNER, LIPID, CMP, T7, TSH ####[facility] [address] [place] [id number]. Spencer Braun PROF 14(COMP METB)on 023 Albumin [Mass/Vol] 3.8 g/dL Normal 3.4-5.0 [facility] Comment on above: Performed By: #### B E LEARNING DESIGNER, LIPID, CMP, T7, TSH #### [facility] [address] [place] [address] Dr. Spencer Braun Albumin/Globulin [Mass ratio] 1.0 {ratio} Normal [facility] Comment on above: Performed By: #### B E LEARNING DESIGNER, LIPID, CMP, T7, TSH #### [facility] [address] [place] [address] Dr. Spencer Braun ALP [Catalytic activity/Vol] 135 U/L Critically high 46-116 [facility] Comment on above: Performed By: #### B E LEARNING DESIGNER, LIPID, CMP, T7, TSH #### [facility] [address] [place] [address] Dr. Spencer Braun ALT [Catalytic activity/Vol] 20 U/L Normal 14-59 [facility] Comment on above: Performed By: #### B E LEARNING DESIGNER, LIPID, CMP, T7, TSH #### [facility] [address] [place] [address] Dr. Spencer Braun Anion gap [Moles/Vol] 8.4 mmol/L Normal [facility] Comment on above: Performed By: #### B E LEARNING DESIGNER, LIPID, CMP, T7, TSH #### [facility] [address] [place] [address] Dr. Spencer Braun AST [Catalytic activity/Vol] 14 U/L Critically low 15-37 [facility] Comment on above: Performed By: #### B E LEARNING DESIGNER, LIPID, CMP, T7, TSH #### [facility] [address] [place] [address] Dr. Spencer Braun Bilirubin [Mass/Vol] 0.4 mg/dL Normal 0.2-1.0 [facility] Comment on above: Performed By: #### B E LEARNING DESIGNER, LIPID, CMP, T7, TSH #### [facility] [address] [place] [address] Dr. Spencer Braun Calcium [Mass/Vol] 9.5 mg/dL Normal 8.5-10.1 [facility] Comment on above: Performed By: #### B E LEARNING DESIGNER, LIPID, CMP, T7, TSH #### [facility] [address] [place] [address] Dr. Spencer Braun Chloride [Moles/Vol] 104 mmol/L Normal 98-107 [facility] Comment on above: Performed By: #### B E LEARNING DESIGNER, LIPID, CMP, T7, TSH #### [facility] [address] [place] [address] Dr. Spencer Braun CO2 [Moles/Vol] 32.0 mmol/L Normal 21.0-32.0 [facility] Comment on above: Performed By: #### B E LEARNING DESIGNER, LIPID, CMP, T7, TSH #### [facility] [address] [place] [address] Dr. Spencer Braun Creatinine [Mass/Vol] 0.72 mg/dL Normal 0.55-1.02 [facility] Comment on above: Performed By: #### B E LEARNING DESIGNER, LIPID, CMP, T7, TSH #### [facility] [address] [place] [address] Dr. Spencer Braun EGFR-AF AUSTRIAN >60 Normal >=60 [facility] Comment on above: Performed By: #### B E LEARNING DESIGNER, LIPID, CMP, T7, TSH #### [facility] [address] [place] [address] Dr. Spencer Braun EGFR-NON AF AUSTRIAN >60 Normal >=60 [facility] Comment on above: Performed By: #### B E LEARNING DESIGNER, LIPID, CMP, T7, TSH #### [facility] [address] [place] [address] Dr. Spencer Braun Globulin (S) [Mass/Vol] 3.9 g/dL Normal [facility] Comment on above: Performed By: #### B E LEARNING DESIGNER, LIPID, CMP, T7, TSH #### [facility] [address] [place] [address] Dr. Spencer Braun Glucose [Mass/Vol] 127 mg/dL Critically high 74-106 [facility] Comment on above: Performed By: #### B E LEARNING DESIGNER, LIPID, CMP, T7, TSH #### [facility] [address] [place] [address] Dr. Spencer Braun Potassium [Moles/Vol] 4.4 mmol/L Normal 3.5-5.1 [facility] Comment on above: Performed By: #### B E LEARNING DESIGNER, LIPID, CMP, T7, TSH #### [facility] [address] [address] [address] Spencer Braun Protein [Mass/Vol] 7.7 g/dL Normal 6.4-8.2 [facility] Comment on above: Performed By: #### B E LEARNING DESIGNER, LIPID, CMP, T7, TSH #### [facility] [address] [place] [address] Dr. Spencer Braun Sodium [Moles/Vol] 140 mmol/L Normal 136-145 [facility] Comment on above: Performed By: #### B E LEARNING DESIGNER, LIPID, CMP, T7, TSH #### [facility] [address] [place] [address] Dr. Spencer Braun Urea nitrogen [Mass/Vol] 18.0 mg/dL Normal 7.0-18.0 [facility] Comment on above: Performed By: #### B E LEARNING DESIGNER, LIPID, CMP, T7, TSH #### [facility] [address] [place] [address] Dr. Spencer Braun Urea nitrogen/Creatinine [Mass ratio] 25.0 mg/mg Normal [facility] Comment on above: Performed By: #### B E LEARNING DESIGNER, LIPID, CMP, T7, TSH #### [facility] [address] [place] [address] Dr. Spencer Braun TSHon 07-14-2022 TSH 1.760 uIU/mL Normal 0.358-3.740 [facility] Comment on above: Performed By: #### B E LEARNING DESIGNER, LIPID, CMP, T7, TSH #### [facility] [address] [place] [address] Dr. Spencer Braun VITAMIN D 25 OHon 07-14-2022 VIT D 25-OH 85.7 ng/mL Normal [facility] Comment on above: Performed By: #### V ITAD, IRON #### [facility] [address] [place] [address] Dr. Spencer Braun VIT D RANGES SEE BELOW Normal [facility] Comment on above: Result Comment: <20 ng/mL Vit D deficient 20 - <30 ng/mL Vit D insufficient 30 - 100 ng/mL Vit D sufficient >100 ng/mL Potential Toxicity Performed By: #### V ITAD, IRON #### [facility] [address] [place] [address] Dr. Spencer Braun CBC AUTO DIFFon 04-30-2022 BASO # 0.1 103/ul Normal 0.0-0.1 [facility] Comment on above: Performed By: #### C BC #### [facility] [address] [place] [address] Dr. Spencer Braun Basophils/100 WBC (Bld) 0.9 % Normal 0.2-2.0 [facility] Comment on above: Performed By: #### C BC #### [facility] [address] [place] [address] Dr. Spencer Braun EO # 0.2 103/ul Normal 0.0-0.7 [facility] Comment on above: Performed By: #### C BC #### [facility] [address] [place] [address] Dr. Spencer Braun Eosinophils/100 WBC (Bld) 2.1 % Normal 0.9-7.0 [facility] Comment on above: Performed By: #### C BC #### [facility] [address] [place] [address] Dr. Spencer Braun Erythrocyte distribution width (RBC) [Ratio] 13.9 % Normal 11.0-15.0 [facility] Comment on above: Performed By: #### C BC #### [facility] [address] [place] [address] Dr. Spencer Braun Hematocrit (Bld) [Volume fraction] 46.2 % Normal 36.0-48.0 [facility] Comment on above: Performed By: #### C BC #### [facility] [address] [place] [address] Dr. Spencer Braun Hemoglobin (Bld) [Mass/Vol] 15.1 g/dL Normal 12.0-16.0 [facility] Comment on above: Performed By: #### C BC #### [facility] [address] [place] [address] Dr. Spencer Braun IG # 0.05 10e3/ul Critically high 0.00-0.03 [facility] Comment on above: Performed By: #### C BC #### [facility] [address] [place] [address] Dr. Spencer Braun IG % 0.6 % Critically high 0.0-0.5 [facility] Comment on above: Performed By: #### C BC #### [facility] [address] [place] [address] Dr. Spencer Braun LYMPH # 1.7 103/ul Normal 1.2-3.8 [facility] Comment on above: Performed By: #### C BC #### [facility] [address] [place] [address] Dr. Spencer Braun Lymphocytes/100 WBC (Bld) 20.3 % Critically low 20.5-60.0 [facility] Comment on above: Performed By: #### C BC #### [facility] [address] [place] [address] Dr. Spencer Braun MANUAL DIFF REQ NO Normal [facility] Comment on above: Performed By: #### C BC #### [facility] [address] [place] [address] Dr. Spencer Braun MCH (RBC) [Entitic mass] 28.8 pg Normal 26.7-34.0 [facility] Comment on above: Performed By: #### C BC #### [facility] [address] [place] [address] Dr. Spencer Braun MCHC (RBC) [Mass/Vol] 32.7 g/dL Normal 29.9-35.2 [facility] Comment on above: Performed By: #### C BC #### [facility] [address] [place] [address] Dr. Spencer Braun MCV (RBC) [Entitic vol] 88.2 fL Normal 81.0-99.0 [facility] Comment on above: Performed By: #### C BC #### [facility] [address] [place] [address] Dr. Spencer Braun MONO # 0.6 103/ul Normal 0.3-0.8 [facility] Comment on above: Performed By: #### C BC #### [facility] [address] [place] [address] Dr. Spencer Braun Monocytes/100 WBC (Bld) 7.1 % Normal 1.7-12.0 [facility] Comment on above: Performed By: #### C BC #### [facility] [address] [place] [address] Dr. Spencer Braun NEUT # 5.7 103/ul Normal 1.4-6.5 [facility] Comment on above: Performed By: #### C BC #### [facility] [address] [place] [address] Dr. Spencer Braun Neutrophils/100 WBC (Bld) 69.0 % Normal 43.0-75.0 [facility] Comment on above: Performed By: #### C BC #### [facility] [address] [place] [address] Dr. Spencer Braun Platelet mean volume (Bld) [Entitic vol] 9.2 fL Critically low 9.5-13.5 [facility] Comment on above: Performed By: #### C BC #### [facility] [address] [place] [address] Dr. Spencer Braun PLT 180 103/ul Normal 150-450 [facility] Comment on above: Performed By: #### C BC #### [facility] [address] [place] [address] Dr. Spencer Braun RBC 5.24 106/ul Normal 4.20-5.40 [facility] Comment on above: Performed By: #### C BC #### [facility] [address] [place] [address] Dr. Spencer Braun WBC 8.2 103/ul Normal 4.0-11.0 [facility] Comment on above: Performed By: #### C BC #### [facility] [address] [place] [address] Dr. Spencer Braun FREE T3on 04-30-2022 FREE T3 2.98 pg/mlL Normal 2.18-3.98 [facility] Comment on above: Performed By: #### L IPID, TSH, T4, FT3, CMP ####[facility] [address] [place] [id number] Braun GLYCOHEMOGLOBIN A1Con 2021 ADA RECOMMENDATION SEE BELOW Normal [facility] Comment on above: Result Comment: ADA RECOMMENDED LIMIT 4.0 - 6.0 ADA THERAPEUTIC TARGET < 7.0 ACTION SUGGESTED > 7.0 Performed By: #### A 1C ####[facility] [address] [place] [id number] Braun Glucose [Mass/Vol] 134 mg/dL Normal [facility] Comment on above: Performed By: #### A 1C ####[facility] [address] [place] [id number] Braun HbA1c (Bld) [Mass fraction] 6.3 % Critically high 4.5-6.2 [facility] Comment on above: Performed By: #### A 1C ####[facility] [address] [place] [id number] Braun LIPID PROFILEon 04-30-2022 CHOL-HDL RATIO NORM SEE BELOW Normal [facility] Comment on above: Result Comment: 3.3 - 4.4 LOW RISK 4.4 - 7.1 AVERAGE RISK 7.1 - 11.0 MODERATE RISK >11.0 HIGH RISK Performed By: #### L IPID, TSH, T4, FT3, CMP ####[facility] [address] [place] [phone]. Spencer Braun Cholesterol [Mass/Vol] 177 mg/dL Normal <=200 [facility] Comment on above: Performed By: #### L IPID, TSH, T4, FT3, CMP ####[facility] [address] [place] [phone] Braun Cholesterol in HDL [Mass/Vol] 56 mg/dL Normal 40-60 [facility] Comment on above: Performed By: #### L IPID, TSH, T4, FT3, CMP ####[facility] [address] [place] [phone]. Spencer Braun Cholesterol in LDL [Mass/Vol] 97.8 mg/dL Normal [facility] Comment on above: Performed By: #### L IPID, TSH, T4, FT3, CMP ####[facility] [address] [place] [address]Dr. Spencer Braun Cholesterol.total/Cho lesterol in HDL [Mass ratio] 3.2 {ratio} Normal [facility] Comment on above: Performed By: #### L IPID, TSH, T4, FT3, CMP ####[facility] [address] [place] [address]Dr. Spencer Braun HDL NORMAL > or = 60 mg/dl - LOW CARDIOVASCULAR RISK <40 mg/dl - HIGH CARDIOVASCULAR RISK Normal [facility] Comment on above: Performed By: #### L IPID, TSH, T4, FT3, CMP ####[facility] [address] [place] [address]Dr. Spencer Braun LDL CALC NORMAL SEE BELOW Normal [facility] Comment on above: Result Comment: <100 mg/dl OPTIMAL 100 - 129 mg/dl NEAR OR ABOVE OPTIMAL 130 - 159 mg/dl BORDERLINE HIGH 160 - 189 mg/dl HIGH >190 mg/dl VERY HIGH Performed By: #### L IPID, TSH, T4, FT3, CMP ####[facility] [address] [place] [address]Dr. Spencer Braun Triglyceride [Mass/Vol] 116 mg/dL Normal <=150 [facility] Comment on above: Performed By: #### L IPID, TSH, T4, FT3, CMP ####[facility] [address] [place] [address]Dr. Spencer Braun VLDL CALC 23.2 mg/dL Normal [facility] Comment on above: Performed By: #### L IPID, TSH, T4, FT3, CMP ####[facility] [address] [place] [address]Dr. Spencer Braun PROF 14(COMP METB)on 022 Albumin [Mass/Vol] 3.8 g/dL Normal 3.4-5.0 [facility] Comment on above: Performed By: #### L IPID, TSH, T4, FT3, CMP ####[facility] [address] [place] [address]Dr. Spencer Braun Albumin/Globulin [Mass ratio] 0.9 {ratio} Normal [facility] Comment on above: Performed By: #### L IPID, TSH, T4, FT3, CMP ####[facility] [address] [place], [place] [address]Dr. Spencer Braun ALP [Catalytic activity/Vol] 143 U/L Critically high 46-116 [facility] Comment on above: Performed By: #### L IPID, TSH, T4, FT3, CMP ####[facility] [address] [place], [place] [address]Dr. Spencer Braun ALT [Catalytic activity/Vol] 19 U/L Normal 14-59 [facility] Comment on above: Performed By: #### L IPID, TSH, T4, FT3, CMP ####[facility] [address] [place], [place] [address]Dr. Spencer Braun Anion gap [Moles/Vol] 12.1 mmol/L Normal [facility] Comment on above: Performed By: #### L IPID, TSH, T4, FT3, CMP ####[facility] [address] [place], [place] [address]Dr. Spencer Braun AST [Catalytic activity/Vol] 17 U/L Normal 15-37 [facility] Comment on above: Performed By: #### L IPID, TSH, T4, FT3, CMP ####[facility] [address] [place], [place] [address]Dr. Spencer Braun Bilirubin [Mass/Vol] 0.3 mg/dL Normal 0.2-1.0 [facility] Comment on above: Performed By: #### L IPID, TSH, T4, FT3, CMP ####[facility] [address] [place], [place] [address]Dr. Spencer Braun Calcium [Mass/Vol] 9.5 mg/dL Normal 8.5-10.1 [facility] Comment on above: Performed By: #### L IPID, TSH, T4, FT3, CMP ####[facility] [address] [place] [address]Dr. Spencer Braun Chloride [Moles/Vol] 102 mmol/L Normal 98-107 [facility] Comment on above: Performed By: #### L IPID, TSH, T4, FT3, CMP ####[facility] [address] [place], [place] [address]Dr. Spencer Braun CO2 [Moles/Vol] 32.6 mmol/L Critically high 21.0-32.0 [facility] Comment on above: Performed By: #### L IPID, TSH, T4, FT3, CMP ####[facility] [address] [place], [place] [address]Dr. Spencer Braun Creatinine [Mass/Vol] 0.69 mg/dL Normal 0.55-1.02 [facility] Comment on above: Performed By: #### L IPID, TSH, T4, FT3, CMP ####[facility] [address] [place], [place] [address]Dr. Spencer Braun EGFR-AF AUSTRIAN >60 Normal >=60 [facility] Comment on above: Performed By: #### L IPID, TSH, T4, FT3, CMP ####[facility] [address] [place], [place] [address]Dr. Spencer Braun EGFR-NON AF AUSTRIAN >60 Normal >=60 [facility] Comment on above: Performed By: #### L IPID, TSH, T4, FT3, CMP ####[facility] [address] [place], [place] [address]Dr. Spencer Braun Globulin (S) [Mass/Vol] 4.1 g/dL Normal [facility] Comment on above: Performed By: #### L IPID, TSH, T4, FT3, CMP ####[facility] [address] [place], [place] [address]Dr. Spencer Braun Glucose [Mass/Vol] 108 mg/dL Critically high 74-106 T [facility] Comment on above: Performed By: #### L IPID, TSH, T4, FT3, CMP ####[facility] [address] [place], [place] [address]Dr. Spencer Braun Potassium [Moles/Vol] 4.7 mmol/L Normal 3.5-5.1 [facility] Comment on above: Performed By: #### L IPID, TSH, T4, FT3, CMP ####[facility] [address] [place], [place] [address]Dr. Spencer Braun Protein [Mass/Vol] 7.9 g/dL Normal 6.4-8.2 [facility] Comment on above: Performed By: #### L IPID, TSH, T4, FT3, CMP ####[facility] [address] [place], [place] [address]Dr. Spencer Braun Sodium [Moles/Vol] 142 mmol/L Normal 136-145 [facility] Comment on above: Performed By: #### L IPID, TSH, T4, FT3, CMP ####[facility] [address] [place], [place] [address]Dr. Spencer Braun Urea nitrogen [Mass/Vol] 19.0 mg/dL Critically high 7.0-18.0 [facility] Comment on above: Performed By: #### L IPID, TSH, T4, FT3, CMP ####[facility] [address] [place], [place] [address]Dr. Spencer Braun Urea nitrogen/Creatinine [Mass ratio] 27.5 mg/mg Normal [facility] Comment on above: Performed By: #### L IPID, TSH, T4, FT3, CMP ####[facility] [address] [place], [place] [address]Dr. Spencer Braun T4on 04-30-2022 T4 [Mass/Vol] 8.30 ug/dL Normal 4.80-13.90 [facility] Comment on above: Performed By: #### L IPID, TSH, T4, FT3, CMP ####[facility] [address] [place], [place] [address]DrManish Braun TSHon 04-30-2022 TSH 1.777 uIU/mL Normal 0.358-3.740 [facility] Comment on above: Performed By: #### L IPID, TSH, T4, FT3, CMP ####[facility] [address] [place], [place] [address]SdManish Braun VITAMIN D 25 OHon 04-30-2022 VIT D 25-OH 72.1 ng/mL Normal [facility] Comment on above: Performed By: #### V ITAD #### [facility] [address] [place], [place] [address] Dr. Spencer Braun VIT D RANGES SEE BELOW Normal [facility] Comment on above: Result Comment: <20 ng/mL Vit D deficient 20 - <30 ng/mL Vit D insufficient 30 - 100 ng/mL Vit D sufficient >100 ng/mL Potential Toxicity Performed By: #### V ITAD #### [facility] [address] [place], [place] [address] Dr. Spencer Braun MG MAMM SCREEN 3D AWAIS CADon 02-16-2022 MG MAMM SCREEN 3D AWAIS CAD Patient: BETH STARKEY Exam Date: 02/16/2022 : 1940 Gender:F Ordering : DR MARCK TATE . Admission #: [id number] Family : Order #: [id number] CLICK HERE TO VIEW EXAM RADIOLOGY REPORT [...] Encarnacion MD on 02/17/2022 at 07:39 Normal [facility] Vital Signs Date Time Vital Sign Value Performing Clinician Tony jenkins 05-12-2023 10:13-0500 Diastolic blood pressure 72 mm[Hg] Sha Vallejo [facility] 05-12-2023 10:13-0500 Heart rate 94 /min Sha Vallejo [facility] 05-12-2023 10:13-0500 SaO2% (BldA) [Mass fraction] 90 % [facility] 05-12-2023 10:13-0500 Systolic blood pressure 130 mm[Hg] Sha Rodpippasilke [facility] 05-03-2023 12:24-0500 Diastolic blood pressure 59 mm[Hg] Jena Hicks MD Work Phone: [facility] 05-03-2023 12:24-0500 Heart rate 86 /min Jena Hicks MD Work Phone: [facility] 05-03-2023 12:24-0500 Systolic blood pressure 103 mm[Hg] Jena Hicks MD Work Phone: [facility] 05-03-2023 12:14-0500 Body height 152.4 cm Jena Hicks MD Work Phone: [facility] 05-03-2023 12:14-0500 Body temperature 98.29 [degF] Jena Hicks MD Work Phone: [facility] 05-03-2023 12:14-0500 Body weight 65.82 kg Jena Hicks MD Work Phone: [facility] 05-03-2023 12:14-0500 Respiratory rate 16 /min Jena Hicks MD Work Phone: [facility] 05-03-2023 12:14-0500 SaO2% (BldA) [Mass fraction] 93 % Jena Hicks MD Work Phone: [facility] 09-06-2022 09:39-0400 Blood Pressure Location Dayron Davidsonan [facility] 09-06-2022 09:39-0400 Diastolic blood pressure 81 mm[Hg] Dayron Jameel [facility] 09-06-2022 09:39-0400 Heart rate 103 /min Dayron Davidsonan [facility] 09-06-2022 09:39-0400 SaO2% (BldA) [Mass fraction] 90 % [facility] 09-06-2022 09:39-0400 Systolic blood pressure 126 mm[Hg] Dayron Davidsonan [facility] Encounters Encounter Date Encounter Type Care Provider Facility Start: 11-09-2023 End: 11-09-2023 ambulatory FORREST MARTIN Not Available Start: 05-30-2023 End: 05-30-2023 ambulatory FORREST MARTIN Not Available Start: 05-12-2023 End: 05-13-2023 ambulatory Sha Val[place]jo [place]: 05-12-2023 End: 05-12-2023 Patient encounter procedure Sha Vallejo [facility] Start: 05-04-2023 Orders Only Jena Hicks MD Work Phone: [facility] Comment on above: 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); Bilateral carotid artery stenosis; Other disorders of arteries, arterioles and capillaries in diseases classified elsewhere (HCC) Start: 05-03-2023 End: 05-03-2023 ambulatory JENA HICKS Facility:[facility] Start: 05-03-2023 End: 05-03-2023 Office outpatient visit 25 minutes Jena Hicks MD Work Phone: Vascular Surg Dept Comment on above: 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) Start: 04-26-2023 Orders Only Jena Hicks MD Work Phone: Vascular Surg Dept Comment on above: Chest pain, unspecif ied type (Primary Dx) Start: 04-25-2023 Telephone encounter No 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 Comment on above: Appointment Start: 04-22-2023 Telephone encounter No One (Historic al) Referring Physician Comment on above: External Referrals/r esources Start: 04-20-2023 End: 04-20-2023 ambulatory FORREST SALAZAR Not Available Start: 03-23-2023 End: 03-24-2023 ambulatory Sha Valle[place] [place]: 03-23-2023 End: 03-23-2023 Patient encounter procedure Sha Vallejo [facility] Start: 01-20-2023 End: 01-21-2023 ambulatory Sha Vallejo [place] Start: 01-20-2023 End: 01-20-2023 Patient encounter procedure Sha Vallejo [facility] Start: 10-11-2022 End: 10-12-2022 ambulatory Dayron Jorgensen [place] Start: 09-24-2022 End: 09-25-2022 ambulatory Dayron Jorgensen [place] Start: 09-24-2022 End: 09-24-2022 Patient encounter procedure Dayron Jorgensen [facility] Start: 09-06-2022 End: 09-07-2022 ambulatory Dayron Jorgensen [place] Start: 09-06-2022 End: 09-06-2022 Patient encounter procedure Dayron Jorgensen [facility] Start: 08-02-2022 End: 08-03-[address] MARCK TATE . Facility: Start: 07-28-2022 End: 07-28-[address] MARCK TATE . Facility:[facility] Start: 07-14-2022 End: 07-15-[address] MARCK TATE . Facility: Start: 04-30-2022 End: 05-01-[address] MARCK TATE . Facility: Start: 02-16-2022 End: 02-17-[address] MARCK TATE . Facility: Start: 06-17-2017 End: 06-18-2017 Ambulatory DEFAULT PHYSICIAN Facility:[facility] Plan of Treatment Date Care Activity Detail Author Start: 07-04-2029 Urine microalbumin profile DTaP,Tdap,Td Vaccine (2 - Td or Tdap) [facility] Start: 01-21-2023 Influenza vaccination Influenza Vacc ine (#1) [facility] Start: 05-23-2022 Advance Directive Discussion Advance Directive Discussion [facility] Start: 05-23-2022 Depression Assessment Depression Ass essment [facility] Start: 05-18-2017 Pneumococcal Vaccine : 65+ (2 - PPSV23 or PCV20) Pneumococcal Vaccine: 65+ (2 - PPSV23 or PCV20) [facility] Start: 2006 Bone Density Screening Bone Density Screening [facility] Start: 2006 Pneumococcal Vaccine : 65+ (1 - PCV) Pneumococcal Vaccine: 65+ (1 - PCV) [facility] Start: 2006 Screening for osteoporosis Bone Density Screening [facility] Start: 2001 RSV Vaccine (1 - 1-d ose 60+ series) RSV Vaccine (1 - 1-dose 60+ series) [facility] Start: 1991 Shingrix Vaccine (1 of 2) Shingrix Vaccine (1 of 2) [facility] Start: 1986 Diabetes Screening Diabetes Screenin g [facility] Start: 1940 Covid-19 Vaccine (#1) Covid-19 Vacci ne (#1) [facility] End: 05-25-2024 Ct angio abd&plvis cntrst mtrl w/wo cntrst img CTA ABD/PEL WO/W IVCON Radiology Routine Chest pain, unspecified type 1 Occurrences starting 04/26/2023 until 05/25/2024 [facility] Work Phone: Comment on above: 1 Occurrences starti ng 04/26/2023 until 05/25/2024 End: 06-02-2024 Ct angio abd&plvis cntrst mtrl w/wo cntrst img CTA ABD/PEL WO/W IVCON Radiology Routine 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 Occurrences starting 05/04/2023 until 06/02/2024 [facility] Work Phone: Comment on above: 1 Occurrences starti ng 05/04/2023 until 06/02/2024 End: 05-25-2024 Ct angiography chest w/contrast/noncontrast CTA CHEST (NONGATED) WO/W IVCON Radiology Routine Chest pain, unspecified type 1 Occurrences starting 04/26/2023 until 05/25/2024 [facility] Work Phone: Comment on above: 1 Occurrences starti ng 04/26/2023 until 05/25/2024 End: 06-02-2024 Ct angiography chest w/contrast/noncontrast CTA CHEST (NONGATED) WO/W IVCON Radiology Routine 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 Occurrences starting 05/04/2023 until 06/02/2024 [facility] Work Phone: Comment on above: 1 Occurrences starti ng 05/04/2023 until 06/02/2024 End: 05-04-2024 PVR ANK/HILL/TOE AWAIS VAS LAB PVR ANK/HILL/TOE AWAIS VAS LAB Vascular Lab Routine 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) Other disorders of arteries, arterioles and capillaries in diseases classified elsewhere (HCC) 1 Occurrences starting 05/04/2023 until 05/04/2024 [facility] Work Phone: Comment on above: 1 Occurrences starti ng 05/04/2023 until 05/04/2024 End: 05-04-2024 US CAROTID ARTERIES AWAIS VAS LAB US CAROTID ARTERIES AWAIS VAS LAB Vascular Lab Routine Bilateral carotid artery stenosis 1 Occurrences starting 05/04/2023 until 05/04/2024 [facility] Work Phone: Comment on above: 1 Occurrences starti ng 05/04/2023 until 05/04/2024 [facility] Payers Date Payer Category Payer [employer] ( and others) [id number] 2006 Medicare MEDICARE MEDICAR E A AND B [id number] 2006-Present [phone] [place] [address] Medicare [id number] 1959 [employer] ( and others) [id number] 1959 Medicare [id number] 1940 Unknown [id number] [id number]. 2.593 1941 Unknown [id number] 2.840.1.979357.3.579. 2.593 1941 Unknown [id number] 2..840.1.920775.3.579. 2.593 1941 Unknown [id number] 2.16.840.1.713604.3.579. 2.593 1941 Unknown [id number] 2.16.840.1.231285.3.579. 2.593 1941 Unknown [id number] 2.16.840.1.078294.3.579. 2.727 1941 Unknown [id number] 2.16.840.1.367101.3.579. 2.727 1941 Unknown [id number] 2.16.840.1.577792.3.579. 2.727 1941 Unknown [id number] 2.16.840.1.271011.3.579. 2.727 1941 Unknown [id number] 2.16.840.1.533585.3.579. 2.727 1941 Unknown [id number] 2.16.840.1.892695.3.579. 2.727 1941 Unknown [id number] 2.16.840.1.534331.3.579. 2.1259 1941 Unknown [id number] 2.16.840.1.256164.3.579. 2.1259 1941 Unknown [id number] 2.16.840.1.383882.3.579. 2.1259 Unknown Social History Date Type Detail Facility Start: 09-06-2022 End: 05-12-2023 Tobacco smoking status Heavy tobacco smoker (finding) [facility] Start: 05-03-2023 Sex Assigned At Female F [facility] Tobacco smoking stat [facility] Tobacco smoking consumption unknown [facility] Start: 1940 Sex Assigned At Not on file [facility] Start: 05-23-1956 Tobacco smoking stat [facility] Smokes tobacco daily [facility] Start: 05-23-1956 History of tobacco use Cigarette Smo ker [facility] Start: 05-03-2023 Cigarettes smoked current (pack per day) - Reported 1.5 [facility] Start: 05-03-2023 Tobacco use and exposure Smokeless tobacco non-user [facility] Start: 05-03-2023 Alcohol intake Current drinke r of alcohol (finding) [facility] National Score (1-10 0), lower number is lower risk 87 [facility] Start: 05-03-2023 Alcohol Comment football season [facility] Functional Status Date Assessment Result Facility 05-12-2023 Functional Status N/A [facility] 09-06-2022 Functional Status No [facility] Clinical Notes 03-21-2023 to 05-26-2023 Jena Hicks MD - 05/03/2023 12:42 PM ESTTelephone Encounter - Stephaniaemberrey Technology AnalystAlondra salinas - 04/25/2023 4:18 PM ESTTelephone Encounter - Des GarciaPatrizia - 04/22/2023 10:05 AM ESTRadiologyRadiology Note Date & Type Note Facility 05-26-2023 Note Patient Outreach (PU LMMN) BETH STARKEY ([id number]) 1940 F Date Time Provider Department 05/26/23 [...] and brochure sent Lung Nodule Program Location: [place] Allergies As of Date: 05/26/2023 (No Known Allergies) Date Reviewed: 05/03/2023 Reviewed by: Nadine Cummins, RN - Fully Assessed Prescriptions as of [...] Status:Closed by EVANGELINA BURNETT on 05/26/23 [facility] 05-26-2023 Note HNO ID: [id number] Author: ?, ?, ? Service: ? Author [...] and brochure sent Lung Nodule [place] [facility] [place] Note Patient Outreach (PU MB) BETH STARKEY ([id number]) 1940 F Date Time Provider Department 05/18/[address] [facility] During your visit today, we recorded the following information about you: Crow Bello, [facility] 05/18/2023 11:12 AM Signed Incidental Lung Nodule Enrollment Outreach attempt: 1st Attempt Outreach status: Complete Enrolled in Lung Nodule program: Referred Lung Nodule outreach: No outreach - Very small nodule, letter and brochure sent Lung Nodule Program Location: [place] Allergies As of Date: 05/18/2023 (No Known [...] Status:Closed by CROW BELLO on 05/18/23 [facility] 05-18-2023 Note HNO ID: [id number] Author: Crow Bello, NUCLEAR SUPERVISING OPERATOR.PHLEBOTOMY DIRECTOR Service: ? Author Type: Nurse Practitioner Type: Progress Notes Filed: 05/18/2023 11:12 AM Note Text: Incidental Lung Nodule Enrollment Outreach attempt: 1st Attempt Outreach status: Complete Enrolled in Lung Nodule program: Referred Lung Nodule outreach: No outreach - Very small nodule, letter and brochure sent Lung Nodule Program [place] [facility] [place]03[place]2023 Note HNO ID: [id number] Author: Nadine Cummins RN Service: Radiology Author [...] May 03, 2023 TIME: 1:00 PM [facility] 05-03-2023 Note HNO ID: [id number] Author: Kandy Aragon RT(R) Service: Radiology Author [...] Tess(R) May 03, 2023 1:19 PM [facility] 05-03-2023 History and physical note Heart , Vascular and Thoracic [place] DEPARTMENT OF VASCULAR SURGERY OUTPATIENT VISIT DATE [...] 4 - Moderate documented in this encounter [facility] 04-25-2023 Miscellaneous Notes Reason for call: Ms Starkey called,and she would like to schedule an appointment with vascular surgery Referred by Dr Judit [facility] and cell number: [phone] Diagnosis: AAA Kind Regards Alondra documented in this encounter [facility] 04-22-2023 Miscellaneous Notes Patient: Beth Starkey Date of : 1940 Patient phone number: [phone] Referring Provider for the encounter: Marck Tate MD Requesting Provider: N/A Reason for requesting visit (RFV/signs and symptoms/diagnosis): Sent Telephone Encounter - updated tracking. Person calling: caregiver: Patrizia Return call to: self Medical Records/Insurance Card scanned into Epic: Yes Comments: N/A documented in this encounter [facility] 03-23-2023 Evaluation + Plan note Diagnostic Tests PendingCreatinine 03/23/23 Future Scheduled TestsCTA Abd Aorto-bilat/ iliofemoral runoff 03/22/23 [facility] 03-22-2023 Evaluation + Plan note Future Scheduled TestsCTA Abd Aorto-bilat/ iliofemoral runoff 03/22/23 [facility] 03-21-2023 Note History of Present I [...] 6 cm. Beth Starkey denies having a sorority mother at this time. She denies chest pain or dyspnea. She does have some dyspnea on exertion. Beth Starkey has a history of 2 stents placed in her heart by Dr. Wells at [place]. Review of Systems Constitutional: no fever, no [...] with voice recognition artificial intelligence software, specifically [employer], [employer] and or [facility]. Substitutions may have occurred with voice recognition and artificial intelligence software. ATTESTATION: Documentation services were performed after patient or guardian consented to allow [employer] experience to record this visit. SANTOS retail selling specialist and provider reviewed before signing. SANTOS: [...] heart failure: Mother. Brenda Gehrig's disease: Father. [facility] Comment on above: Result Comment: Elec tronically Signed By: Genevieve CURRIE, Sha Bustos\.br\Date and Time Signed: 03/21/23 11:20 EDT\.br\Electronically Co-Signed By: Beth Sanders\.br\Date and Time Co-Signed: 01/20/23 12:18 EDT Evaluation + Plan note Future Appointments Appointment Date:10/11/2022 10:00:00 AM Scheduled Provider:Dayron Jorgensen MD Location:[facility] Appointment Type:Vascular Follow Up ([facility]) Future Scheduled TestsCTA Abdomen and Pelvis 09/06/22CTA Chest 09/06/22 [facility] Evaluation + Plan note Future Appointments Appointment Date:10/11/2022 10:00:00 AM Scheduled Provider:Dayron Jorgensen MD Location:[facility] Appointment Type:Vascular Follow Up (FT) [facility] Evaluation + Plan note Future Scheduled TestsCTA Abd Aorto-bilat/ iliofemoral runoff 03/22/23 [facility] Evaluation note Diagnosis Chest pain, unspecified type- Primary [facility] Diagnosis 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 documented in this encounter [facility] [place] [facility]* Diagnosis 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 Bilateral carotid artery stenosis Occlusion and stenosis of carotid artery without mention of cerebral infarction Other disorders of arteries, arterioles and capillaries in diseases classified elsewhere (HCC) documented in this encounter [facility] course Narrative No data available for this section [facility] Discharge instructions No data available for this section [facility] No data available for this section [facility] for referral (narrative)* Outpatient Procedure (Routine) - Authorized Specialty Diagnoses / Procedures Referred By Contac t Referred To [facility] Diagnoses 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) Other disorders of arteries, arterioles and capillaries in diseases classified elsewhere (HCC) Procedures PVR ANK/HILL/TOE AWAIS VAS LAB NON-INVAS PHYSIOLOGIC STD EXTREMITY ART 2 LEVEL Jena Hicks MD [address] [place] [address] [facility] [place] [address] Referral ID Status Reason Start Date Expiration Date Visits Requested Visits Authorized [id number] Authorized Auto-Generat ed Referral 3 05/03/2024 1 1 * MRI/CT (Routine) - Authorized Specialty Diagnoses / Procedures Referred By Contac t Referred To Contact CT IMAGING Diagnoses 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) Procedures CTA ABD/PEL WO/W IVCON CT ANGIO ABD&PLVIS CNTRST MTRL W/WO CNTRST Jena Todd MD [address] [place] [address] [facility] [place] [address] Referral ID Status Reason Start Date Expiration Date Visits Requested Visits Authorized [id number] Authorized Auto-Generat ed Referral 3 06/02/2024 1 1 * MRI/CT (Routine) - Authorized Specialty Diagnoses / Procedures [facility] To Contact CT IM[facility] Diagnoses 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) Procedures CTA CHEST (NONGATED) WO/W IVCON CT ANGIOGRAPHY CHEST W/CONTRAST/NONCONTRAST Jena Hicks MD [address] [place] [address] [facility] [place] [address] Referral ID Status Reason Start Date Expiration Date Visits Requested Visits Authorized [id number] Authorized Auto-Generat ed Referral 3 06/02/2024 1 1 * Outpatient Procedure (Routine) - Authorized Specialty Diagnoses / Procedures [facility] Referred To Contact [facility] VASCULAR [place] Diagnoses Bilateral carotid artery stenosis Procedures US CAROTID ARTERIES AWAIS VAS LAB DUPLEX SCAN EXTRACRANIAL ART COMPL BI STUDY Jena Hicks MD [address] [place] [address] [facility] [place] [address] Referral ID Status Reason Start Date Expiration Date Visits Requested Visits Authorized [id number] Authorized Auto-Generat ed Referral 3 05/03/2024 1 1 [facility] Summary Purpose Family History No Family History [...] Referral Specialty Diagnoses / Procedures [facility] Referred To Contact CT IMAGING Diagnoses Chest pain, unspecified type Procedures CTA ABD/PEL WO/W IVCON CT ANGIO ABD&PLVIS CNTRST MTRL W/WO CNTRST IMGES Jena Hicks MD [address] [place] [place] [address] [facility] [place] [address] Referral ID Status Reason Start Date Expiration Date Visits Requested Visits Authorized [id number] Authorized Auto-Generat ed Referral 04/26/2023 05/25/2024 1 1 Specialty Diagnoses / Procedures Referred By Contac t Referred To Contact CT IMAGING Diagnoses Chest pain, unspecified type Procedures CTA CHEST (NONGATED) WO/W IVCON CT ANGIOGRAPHY CHEST W/CONTRAST/NONCONTRAST Jena Hicks MD [address] [place] [address] Ct [facility] [place] [address] Referral ID Status Reason Start Date Expiration Date Visits Requested Visits Authorized [id number] Authorized Auto-Generat ed Referral 04/26/2023 05/25/2024 1 1 Additional Source Comments INFORMATION SOURCE (unrecogn ized section and content) DATE CREATED AUTHOR 11/14/2017 [facility] DATE CREATED AUTHOR AUTHOR'S ORGANIZ ATION 08/09/2022 [facility] DATE CREATED AUTHOR AUTHOR'S ORGANIZ ATION 05/27/2023 [facility] DATE CREATED AUTHOR AUTHOR'S ORGANIZ ATION 05/30/2023 [facility] DATE CREATED AUTHOR AUTHOR'S ORGANIZ ATION 11/11/2023 [facility] dical Specialists EPIC Patient Care team informatio n (unrecognized section and content) 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 Relationship Specialty Start Date End Date Marck Tate MD [address] [place] [address] Family [facility] 04/22/23 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 Relationship Specialty Start Date End Date Marck Tate MD [address] [place] [address] Family [facility] 04/22/23 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 Relationship Specialty Start Date End Date Marck Tate MD [address] [place] [address] Family Medicine 04/22/23 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 Relationship Specialty Start Date End Date Marck Tate MD [address] [facility] [place] [address] Family [facility] 04/22/23 Source Comments (unrecognize d section and content) In the event this informatio n is protected by the Federal Confidentiality of Alcohol and Drug Abuse Patient Records regulations: The Federal rules restrict any use of the information to criminally investigate or prosecute any alcohol or drug abuse patient.[facility] the event this information is protected by the Federal Confidentiality of Alcohol and Drug Abuse Patient Records regulations: The Federal rules restrict any use of the information to criminally investigate or prosecute any alcohol or drug abuse patient.[facility] Center[facility] the event this information is protected by the Federal Confidentiality of Alcohol and Drug Abuse Patient Records regulations: The Federal rules restrict any use of the information to criminally investigate or prosecute any alcohol or drug abuse patient.[facility] Center[facility] the event this information is protected by the Federal Confidentiality of Alcohol and Drug Abuse Patient Records regulations: The Federal rules restrict any use of the information to criminally investigate or prosecute any alcohol or drug abuse patient.[facility] CenterIn the event this information is protected by the Federal Confidentiality of Alcohol and Drug Abuse Patient Records regulations: The Federal rules restrict any use of the information to criminally investigate or prosecute any alcohol or drug abuse patient.[facility] Reason for Visit (unrecogniz ed section and [...] BE BASED ON THE PRIMARY CLINICAL RECORDS. [facility]. provides no warranty or guarantee of the accuracy or completeness of information in this document.
== END 2023-11-16 11:12 | disposition home or self-care (01) ==
LOC: NOMS 11:11
PROVIDERS: PCP Family Medicine; Visit Provider Obstetrics & Gynecology
DX: N83.202 Unspecified ovarian cyst, left side (principal)
CPT/HCPCS: 76830

== ENCOUNTER 2023-12-23 09:23 | Outpatient (OUT) | payer MEDICARE, OTHER, SELFPAY ==
--- NOTE | 2023-12-23 09:52 | CT_ITS ---
[address] [address] Patient Name: ADELA PARDO MRN: [id number] date: 1940 Sex: F Assigned Patient Location: LAB Current Patient Location: Accession/Order Number: [id number] Exam Date: 12/23/2023 10:10 Report Date: 12/24/2023 05:26 At the request of: SANDIE NO Procedure: CT chest w con EXAMINATION: CT chest w con HISTORY: Lung Nodule R91.1 COMPARISON: CT chest 08/02/2022 TECHNIQUE: Multi-planar CT images were obtained without and/or with IV contrast as indicated by examination type. Axial, Coronal, and Sagittal images. Dose reduction techniques were achieved by using automated exposure control and/or adjustment of mA and/or kV according to patient size and/or use of iterative reconstruction technique. FINDINGS: LUNGS: 7 x 5 x 3 mm nodule within right middle lobe. Moderate emphysematous changes predominantly involving the lung apices. PLEURA: No mass, effusion, or pneumothorax. VASCULATURE: No abnormality. WEST: Mild adenopathy bilaterally. MEDIASTINUM: No mass or adenopathy. CARDIAC: No enlargement or pericardial thickening.. 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 CHEST WALL: No mass or axillary adenopathy. BONES: No bone lesion or fracture. LIMITED ABDOMEN: No suspicious findings Limited images of the upper abdomen. OTHER: Negative. CT/CT chest w con IMPRESSION: 1. 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 2. Stable 7 x 5 x 3 mm right middle lobe nodule when measured in the same planes on prior study. 3. Grossly stable moderate emphysematous changes. Electronically authenticated by: KAYY KAUR Date: 12/24/2023 05:26
== END 2023-12-23 09:24 | disposition home or self-care (01) ==
LOC: LAB 09:24
PROVIDERS: PCP Family Medicine; Visit Provider Nurse Practitioner Family
DX: R91.1 Solitary pulmonary nodule (principal); Z01.818 Encounter for other preprocedural examination; I71.23 Aneurysm of the descending thoracic aorta, without rupture
CPT/HCPCS: 36415; 71260; 82565; Q9967

== ENCOUNTER 2023-12-23 09:52 | Outpatient (OUT) | payer MEDICARE, OTHER, SELFPAY ==
--- OUTSIDE RECORDS SUMMARY | 2023-12-23 10:01 | XMS_ITS | CCD ---
Author Organization [facility] Team Providers Care Hogshead Mat Assembler Name Role Phone PHYSICIAN, DEFAULT Unavailable Unavailable PHYSICIAN, DEFAULT Unavailable Unavailable MARCK TATE Unavailable Unavailable HOY ., DR ACHARYA Admitting Unavailable HOY ., DR ACHARYA Attending Unavailable HOY ., DR ACHARYA Primary Care Unavailable HOY ., DR ACHARYA Consulting Unavailable HORSEHEADS, DR SANDOVAL Ferguson Consulting Unavailable HOY ., [...] Attending Unavailable Jameel, Mohamed FManish Admitting Unavailable Bebeto Marck Referring Unavailable Sha Valle[place] Attending Unavaila ble [...] Medication Allergies] Propensity to adverse reactions (disorder) [facility] Repository Medications Current Medications Medication Drug Class(es) Dates Sig (Normalized) Sig (Original) amLODIPine 5 mg oral tablet (7 sources) Dihydropyridine Calcium Channel Yessica Start: 01-20-2023 take 1 tablet by mouth once daily amLODIPine 5 mg Tab 5 mg = 1 tab(s), Oral, Daily, # 30 tab(s), Refills(s) 0 Start Date: 12/16/23 Status: Ordered Comment on above: Take 1 tablet by caty th every afternoon. aspirin 81 mg delayed release oral tablet (4 sources) Platelet Aggregation Inhibitor, Nonsteroidal Anti-inflammatory Drug Start: 05-12-2023 aspirin 81 mg Oral EC Tab Refills(s) 0 Start Date: 05/12/23 Status: Ordered take 81 mg by mouth once daily B SUSANNA ASPIRIN ORAL Take 81 mg by mouth once daily. 0 Active Comment on above: Take 81 mg by mouth once daily. atorvastatin 40 mg oral tablet (1 source) HMG-CoA Reductase Inhibitor Start: 4 take 1 tablet by mouth once daily Lipitor 40 mg Tab 40 mg = 1 tab(s), Oral, Daily, # 30 tab(s), Refills(s) 6, Pharmacy: [facility] #[id number], 152, cm, 12/16/23 15:27:00 EDT, Height/Length Dosing, 69.1, kg, 12/16/23 15:27:00 EDT, Weight Dosing Start Date: 12/16/23 Status: Ordered cetirizine hydrochloride 10 mg oral tablet (8 sources) Histamine-1 Receptor Antagonist Start: 3 take 1 tablet by mouth once daily cetirizine 10 mg Tab 10 mg = 1 tab(s), Oral, Daily, # 30 tab(s), Refills(s) 0 Start Date: 09/06/22 Status: Ordered Comment on above: Take 1 tablet by caty th every afternoon. ezetimibe 10 mg oral tablet (3 sources) Dietary Cholesterol Absorption Inhibitor Start: Zetia 10 mg Tab Refills(s) 0 Start Date: 12/16/23 Status: Ordered Start: 04-10-2023 take 1 tablet by mouth once ez etimibe (ZETIA) 10 mg tablet Take 1 tablet by mouth every afternoon. 0 04/10/2023 Active Comment on above: Take 1 tablet by caty th every afternoon. glimepiride 2 mg oral tablet (6 sources) Sulfonylurea Start: 2022 glimepiride 2 mg [...] link. metFORMIN hydrochloride 500 mg oral tablet (6 sources) Biguanide Start: 2022 metformin 500 mg Tab Refills(s) 0 Start Date: 01/20/23 Status: Ordered Comment on above: Take 1 tablet by caty th every 12 hours. 24 hr metoprolol succinate 25 mg extended release oral tablet (1 source) beta-Adrenergic Yessica Start: 2023 take 1 tablet by mouth once daily metoprolol succinate 25 mg ER Tab 25 mg = 1 tab(s), Oral, Daily, # 30 tab(s), Refills(s) 6, Pharmacy: [facility] #[id number], 152, cm, 12/16/23 15:27:00 EDT, Height/Length Dosing, 69.1, kg, 12/16/23 15:27:00 EDT, Weight Dosing Start Date: 12/16/23 Status: Ordered omeprazole 20 mg delayed release oral capsule (6 sources) Proton Pump Inhibitor Start: 2022 omeprazole 20 mg Cap-DR 20 mg = 1 cap(s), Refills(s) 0 Start Date: 01/20/23 Status: Ordered Comment on above: Take 20 mg by mouth once daily. pramipexole dihydrochloride 1 mg oral tablet (3 sources) Nonergot Dopamine Agonist Start: 2023 pramipexole 1 mg Tab Refills(s) 0 Start Date: 12/16/23 Status: Ordered Start: 04-04-2023 take 1 tablet by mouth once pr amipexole (MIRAPEX) 1 mg tablet Take 1 tablet by mouth every afternoon. 0 04/04/2023 Active Comment on above: Take 1 tablet by caty th every afternoon. Completed/Discontinued Medications Medication Drug Class(es) Dates Sig (Normalized) Sig (Original) ascorbic acid 500 mg chewable tablet (2 [...] Take 1,000 Units by mouth once daily. 60 actuat fluticasone propionate 0.1 mg/actuat / salmeterol 0.05 mg/actuat dry powder inhaler (6 sources) Corticosteroid, beta2-Adrenergic Agonist Start: 04-06-2023 take 1 puff(s) by inhalation twice daily WIXELA INHUB 100-50 mcg/dose inhaler Inhale 1 Puff as instructed two times a day. 0 04/06/2023 Active Start: 01-20-2023 Wixela Inhub 1 00 mcg-50 mcg inhalation powder Refill(s) 0 Start Date: 01/20/23 Status: Ordered Comment on above: Inhale 1 Puff as ins tructed two times a day. lisinopril 40 mg oral tablet (8 sources) Angiotensin Converting Enzyme Inhibitor Start: 03-17-2023 [...] 1 tablet by caty th once daily. Problems Active Problems Problem Classification Problem Date Documented Da te Episodic/Chronic Aortic; peripheral; and visceral artery aneurysms (5 sources) Thoracic aortic aneurysm without rupture; Translations: [Thoracic aortic aneurysm, without rupture, unspecified] Onset: 09-06-2022 Chronic Chronic obstructive pulmonary disease and bronchiectasis (5 sources) Chronic obstructive pulmonary disease, unspecified; Translations: [COPD UNSPECIFIED] Onset: 07-18-2022 Chronic Congestive heart failure; nonhypertensive (1 source) Unspecified diastolic (congestive) heart failure; Translations: [UNSPECIFIED DIASTOLIC HEART FAILURE] Onset: 07-18-2022 Chronic Coronary atherosclerosis and other heart disease (2 sources) Atherosclerotic heart disease of [place] coronary artery without angina pectoris; Translations: [Coronary atherosclerosis] Onset: 07-18-2022 Chronic Diabetes mellitus with complications (4 sources) Type 2 diabetes mellitus with hyperglycemia; Translations: [TYPE 2 DM W/HYPERGLYCEMIA] Onset: 07-14-2022 Chronic Disorders of lipid metabolism (1 source) Hyperlipidemia, unspecified; Translations: [HYPERLIPIDEMIA UNSPECIFIED] Onset: 07-18-2022 Chronic Essential hypertension (1 source) Essential hypertension; Translations: [Essential (primary) hypertension] Onset: 12-16-2023 Chronic Hypertension with complications and secondary hypertension [...] malignant neoplasm of breast; Translations: [FAMILY HX MALVALERIY NEOPLASM OF BREAST] Onset: 02-18-2022 Episodic Residual codes; unclassified (1 source) Family history of malignant neoplasm of other organs or systems; Translations: [FAM HX MALVALERIY NEOPLASM OTH ORGN/SYS] Onset: 02-18-2022 Episodic Results [...] well. She has reached out to the [facility] and has been assigned a doctor [...] However, during her recent visit to the [facility], she was informed that her aorta [...] routine follow-up. She had an evaluation at [facility] for her aneurysm. She also got a CT angiogram with runoff. This showed the aneurysm is 5.9 cm by testing at [place], but measured 5.3 cm. As per patient at [facility], she has an occluded right SFA, [...] with voice recognition artificial intelligence software, specifically [employer], [employer] and or Dragon [employer]ient Experience. Substitutions may have occurred with voice recognition and artificial intelligence software. Documentation services were performed after patient or guardian consented to allow [employer]ient eXperience to record this visit. SANTOS flight operations specialist and provider reviewed before signing. SANTOS: [...] No Known Medicat (more content not included)... [facility] Comment on above: Result Comment: Elec tronically Signed By: Genevieve CURRIE, Sha Bustos\.br\Date and Time Signed: 05/29/23 20:33 EST\.br\Electronically Co-Signed By: Annmarie Mccray\.br\Date and Time Co-Signed: 05/12/23 12:52 EST Physician Orderon 05-13-2023 Physician Order [id number] 5#1.00TIFF [facility] CNOVon 05-03-2023 CNOV Office Visit (MARLENASMN) BETH STARKEY ([id number]) 1940 F Date Time Provider Department 05/03/23 12:00 PM JENA HICKS During your visit today, we recorded the following information about you: Temperature Pulse Respiration Blood pressure 98.3 degrees 86/minute 16/minute 103/59 Weight Height 65.8 kg 1.524 m Jena Hicks MD 05/03/2023 3:31 PM Signed [facility] [place] DEPARTMENT OF VASCULAR SURGERY OUTPATIENT VISIT DATE [...] PHYSICAL E (more content not included)... Normal [facility] CTA ABD/PELV WO/W IVCONon CTA ABD/PELV WO/W IVCON * * *Final Report* * * DATE OF EXAM: May 03 2023 1:27PM [facility] [place] ABD/PELV WO/W IVCON / [...] stable BONES: degenerative changes of the spine Area Loss Prevention Manager (topogram) images: No additional findings. IMPRESSION: * [...] (more content not included)... Invalid Interpretation Code [facility] CTA CHEST (NONGATED) WO/W IV CONon 05-03-2023 CTA CHEST (NONGATED) WO/W IVCON * * *Final Report* * * DATE OF EXAM: May 03 2023 1:27PM M3[facility] 0124 - CTA CHEST (NONGATED) WO/W IVCON [...] stable BONES: degenerative changes of the spine Area Loss Prevention Manager (topogram) images: No additional findings. IMPRESSION: * [...] (more content not included)... Invalid Interpretation Code [facility] HISTORY PHYSICALon HISTORY PHYSICAL HNO ID: [id number] Author: Jena Hicks MD Service: ? Author Type: Physician Type: HANDP Filed: 05/03/2023 3:31 PM Note Text: [facility] [place] DEPARTMENT OF VASCULAR SURGERY OUTPATIENT VISIT DATE [...] HEENT: EOM, pupils (more content not included)... [facility] 04-25-2023 CNPN Telephone (PODCCP) EDVINBETH Huang ([id number]) 1940 F Date Time Provider Department 04/25/23 NO PCP PODCCP During your visit today, we recorded the following information about you: Alondra Quiros 04/25/2023 4:23 PM Signed Reason for call: Ms Starkey called,and she would like to schedule an appointment with vascular surgery Referred by Dr Judit [facility] and cell number: [phone] Diagnosis: AAA Kind Regards Alondra Allergies As of Date: 04/25/2023 (Not on File) Date Reviewed: Never Reviewed Reason for Visit: Appointment [186] Problem List As Of Date: 04/25/2023 (None) Encounter Status:Closed by ALONDRA QUIROS on 04/25/23 [facility] 04-22-2023 CNPN Telephone (REFPHY) EDVINBETH ([id number]) 1940 F Date Time Provider Department 04/22/23 NO ONE (HISTORICAL) REFPHY During your visit today, we recorded the following information about you: Patrizia Orozco 04/22/2023 10:06 AM Signed Patient: Beth Starkey Date of : 1940 Patient phone number: [phone] Referring Provider for the encounter: Marck Tate MD Requesting Provider: N/A Reason for requesting visit (RFV/signs and symptoms/diagnosis): Sent Telephone Encounter - updated tracking. Person calling: caregiver: Patrizia Return call to: self Medical Records/Insurance Card scanned into [facility]: Yes Comments: N/A Allergies As of Date: 04/22/2023 (Not on File) Date Reviewed: Never Reviewed Reason for Visit: External Referrals/resources [909] Problem List As Of Date: 04/22/2023 (None) Encounter Status:Closed by PATRIZIA OROZCO on 04/22/23 Normal [facility] Outside Radiologyon 04-20-20 23 Outside Radiology [id number] #1.00TIFF [facility] Consent for Treatmenton Consent for Treatment [id number] #1.00TIFF [facility] Lab - Otheron 03-23-2023 Lab - Other [id number] 0#1.00TIFF [facility] Physician Orderon 01-21-2023 Physician Order [id number] #1.00CD:127 [facility] Consent for Treatmenton 12-23 Consent for Treatment [id number]# 1.00CD:127 [facility] Progress Note-Nurseon 2022 Progress Note-Nurse [id number] #1.00CD:127 [facility] Consent for Treatmenton 09-21 Consent for Treatment [id number] #1.00CD:127 Normal [facility] Heart [facility] Vascular Office/Cl inic Noteon 10-11-2022 [...] failure: Mother. Brenda Gehrig's disease: Father. Normal [facility] Comment on above: Result Comment: Elec tronically Signed By: Jameel CURRIE, Dayron Loaiza\.br\Date and Time Signed: 10/11/22 10:20 EDT Physician Orderon 09-28-2022 Physician Order [id number] 7#1.00CD:[address] [facility] CHEMISTRYOrdered By: SYSTEM SYSTEM on 05-05-2023 Creatinine [Mass/Vol] 0.8 mg/dL Normal 0.5 - 1.3 mg/dL [facility] Remisol GFR/1.73 sq M.predicted among non-blacks MDRD (S/P/Bld) [Vol rate/Area] 74 mL/min/1.73 m2 Normal >=59mL/min/1. 73 m2 [facility] Chem S CTA Abdomen and Pelv[place] CTA [...] Edinson Staley MD Transcribed by: ELKE Technologist: ELKER Technical Comments GFR (mL/min/1/73m2) >60 Contrast: Isovue 370 Contrast amount in ml's: [address] [facility] CTA Cheston 09-24-2022 CTA Chest Exam Date/Time: [...] 370 Contrast amount in ml's: [address] [facility] Consent for Treatmenton Consent for Treatment [id number] #1.00CD:[address] [facility] Creatinineon 09-24-2022 Creatinine [Mass/Vol] 0.8 mg/dL Normal 0.5-1.3 [facility] Comment on above: Performed By: #### 2 [id number] ####[facility] [address] [place] [address] eGFRon 09-24-2022 GFR/1.73 sq M.predicted among non-blacks MDRD (S/P/Bld) [Vol rate/Area] 74 mL/min/1.73 m2 Normal >=[address] [facility] Comment on above: Order Comment: Order added by Discern Expert. Result Comment: Multiple Spindle Router Operator rogelio kidney disease could be indicated at eGFR's of less than 60 mL/min/1.73m2. Kidney failure is indicated at less than 15 mL/min/1.73m2. Performed By: #### 2 [id number], [id number] ####[facility] [address] [place] [address] Physician Orderon 09-23-2022 Physician Order [id number] 3#1.00CD:[address] [facility] Coding Summary.on 09-09-2022 Coding Summary. CD:[id number] Ww+PGhlYWQ+NB3OUZOcQ 63ctZKhyP4gP8HQDVmVK ywgQVBQTElOSyIgbmFtZ V0qsCHtRVVw IC8+VX3lHBNzBnfhgROy z3Z4iYO9C97bxh2rSJsu mOM3YSHcNoHlfymhe9mo fLs5PDcbThqtTgEo JACnjY87UJX6tY33Qx71 yKKosGHqn1lfdCo5UjNi PCObSBM0dKeuKFzos6Re DGKdY78rdMSho7Q5 IGNvbGxhcHNlOyBlbXB0 oS8wGSvuijdzl5gjqhrm Nhw7yq79rHQhk1T3aCW2 X4SuufC1TJGbwCRz PwxmwYTHyK8byjain2uq yexkAmPyIPLwTVp3SWx5 GRXzaWddXiDdHM92TXK4 KMVxufLkT4ErMKEk cXisSgT8u1L8Df2TY1JG RwhiJ1CPYQDOAPjxqLZ+ RW68lw04S4JgQzalUrt3 BKKwBDO0sZD2uF9n CVLgRVckh9K3fHD8F9Sv xvRmej4li7gcJZIuMItm Z79ngPCug3N1RGAjgGI9 YJMpiEcyWhEzdM45 Oyc+EMFqjIamu9QdIvck k8tvd1lacAp5PbknWULp fuCqwBfyVWH3p1AtYt3d VBAflJM5kXN3pV7r NuOjNwS9EJgaZ855XsFx dXInFznkQ51oI1AjcSO+ THIyXgp2XHGbfUjxZD1s E2KmUCWhzoqpmMNv sNepSZ8vOBTvedrjRPTp vB2eHWEeN6r3HlUgDmW0 OUotK7PoNEPqdxfaJm27 wA5pRnBdPkA9OZyw W4XqbwG6YZDfzPOyFSww UFO5J58hz7Z4RGRyMENh GRZ1gBX3pT7upMokvbdw bGVmdDsgdmVydGlj MPrjVTjcP782UJRgbUva PkNvZGluZyBEYXRlOiAg MDQvMjAvMjAyMzwvdGQ+ TLQnWGG7oXstBRVv pJOmCIovAr8ekAgeoFse UR3xDBWjzalxQLKkqR0e OSIkbOEhjEdhLL2tEWZm uhtxk349GqRmVZF8 DQIpwARzV2UktO2uOuKp UQPiLYMnY1LnrTPwJSbw X128WPdiQmK0YLIowmLx U5MvLVEjfHozJtG2 a0J0Rv9Qj6RcskmeP1Cv fTDwSsSzRolrQAw5C0Uc PjwvdHI+PR47IYAuLN28 AYg1LXJ0vRgsQIep HAKzT8KneC0rEiZhEXQc ZGRkOyc+PHRhYmxlIHdp ZHRoPScxMDAlJyBzdHls GK5qRp7sSRIrONIv mZlpeXTjVgOiw5agZYBh SQguEX5gnJbrK8KbgGL8 RZBcr8o1Ce30O41iL4Me dXA+RCWirEO1mHG1 hP0rWgSyWjT9XYfbK833 DzZvsCUnCmdps9hbh0uk sXu5EkY7CQWospJzgMyg KLL5w0LwKk33R72c IHdpZHRoPSIxNSUiIHZh bOtora2ktG9rPw0+PGNv vGY7wJN0sD1rOfNlRmY4 KDrnY680AsVvwKUe Bfoys5qfk7ezgSg7UjAn PYLeloXyzCvxXDI2i3Gf Fe15H2VmmClod0WyQps3 ot28yITwo9T7iQH5 N6YhRHVrkbpblCMohWph BI9oIVBvwzmaXNFqtZ2t FQGnP2j2ZsFuUyI9WMxy M0ZnxrP4TRLotOYo CICloZLJnP7xuxvuw2ag duukRfOtZAHcNPu4TBr9 QRHsfLanLhYfVZO1MxS9 SHN8pNXzvQ1rkStx clieeC4oIho+AWM5hVMl rWHMZE7fIbolyAJ+PHRk KQO7hBqtTGgwGWIsxO2p DPJmA3u5GxKqEhS6 VAffW5LipdR7WLAekXIi FBYanYZGuJ7zvwnns5hr banlCgTqSQRbKNv4QLz5 LWFsaWduOiBsZWZ0 WeM4OWH6cVHwfH4snEqe xdzjjA7hRif+QmlydGgg WRJ2FUz5A0XtIir0EIEa kNddOH2fiWHtPPvi Re5jrPkulWfcTQ1nUXBg shulg079PsCip4vhGWWm yIKuMXsnNFP2H78yg3I3 ALIvEIIuJRG9gZX0 yE1koNvetnnovWIaxIbd viGsuNfkIOwbINojI420 KHHqzKzdPsPvKFw1H9Ti Fnc0LJYobZhhEI4z eOYxHFzrKp7rhPvlzAcd FE9mQXYfbocke797LrVv n4viYYGazVFjANitEJT9 I69nr1L2DJLoAIWp ZOZ2lVK5iW1faHspfoyq bGVmdDsgdmVydGljYWwt HDerU347PUVmySkuVpHw nLq0H9CkZbk5FRYy bTnhCF6ckKTwHJsuSg8g oXckmSioXB9dIFBasrkq o432JdHre3yuSGDmbVHp FNeqUNB0U23qh8A3 ZPCuPTMxGIP0aCV4sE8y bGlnbjogbGVmdDsgdmVy dGefQBzhRBpaD953QXJb cDsnPlBhdGllbnQg JJtfIIp8N8JxKbtybRS+ EQ59BNLhGR56sKGjkXIk o6mcnXh7TyZiMSBvKAE0 nXmrKDxpi6ScMFCb Y21zlEAeq3O8AFOqgUmq kATsLbIbyWD4aQ9vCXkw rlygr0miitmoRfrgy1oa lo58kD63U48tMKmk ZHRoPSIzMCUiIHZhbGln vp1ooK7dMa2+PGNvbCB3 cYG6fK2zUTCzOyO3DWah Q537KcUjqYOtXshk p6wpk1fuxXk0MhL3PEDp hyRqwTaxZYU1c4LjNv36 J64xIXpbQRGbRXNiTRBm TSLlgPljau9qjD2m Ii8+KVTheEZ1uUZ4qV5l UhLjHiG8TPcfH052KwDg qBRzMtnfS54uA3ZitZY+ VAJaKni1REQpgGbo AV2vnXFjKWccKy7tGBJ6 AjQpHlKgWKbqP5LzTEMx gmydjtjhpYV5TBApTEAg qF64No9zvQfaXDVe cHRDxK2uqszwt5epojyv DlIkEQSdMAx8ESq9ESXy cDoqSsLiFXV5RyW7GSL3 eCKssE6clKspncbn sW8bX8WvDMQneociDc49 cW3aLkEuQnW6ERtwXtx+ E3LJBcgvQSQPPRYNCM06 JM03oYYqi1P6sQD0 L1GzCDPsazafwfyveIK7 TJGnHQMvuX86zBCfFKbg Uh7ee6K1m054SPCmWBTo jV79Nn1jpCwcAJEa eMWBqF3ewjohp4pwvctq NoBdTVBtFRg9LUf0DYIz bNbaMpUiXND2SqX3PZD5 jILgrR4ajVxizxwi oU0bKhv+MTAvMjEvMTk0 MTwvdGQ+OQKfGEY6lYiz KYqjQTZjnW5zQRVdD8x5 OqXcPiO6NZpqJ7My TOWsndgpVm34aQ6xPhCa PdL6TCecW2BbqhX6MIVj nCCcNIzyOEN5W50yv3F0 BTZgWVWzFNH7lIT2 cC0ozLmrxakulGAugRdf npNmuPekBBxyRTmfS771 IHRvcDsnPjgxIFllYXJz NW02MW86nJFnp9L6 bXA4D8MvDJCnufdtgiuj yGE9YIBsMHEoqG87tNAv QOspRb5ii6I1r827VBWb ASJxmN12Mx8tjQrz QIPywNLHlE7ujhizt8dd ggjoQbVnUVLeRIz6SUk6 FXSctSjfAoFxRSL9UwO0 CRA7aBFkyF5psPzv wqgjsA4vOcf+RmVtYWxl BQ87UJ88jFRew8R3fUZ5 N4PcVZYdvqsdkfgnxEW3 NYVbHLPngB22vWVx QNlyNc9lg4I1a200BCVx FFRhrB16Kc7soWkqACUz lZUVvU9higbbu5zfwnyg YrBpWXZdOOf5OBr1 LYJcnHndSkSgLZI8EfI0 UHL5kSAkoT4qsCluxeay uB3rZwc+T4A9nLE7fJVp dDwvdGQ+BM55xl28 F7TsNekqGbj4GCUsUEY2 wWA0pG6tQEEpKTlyl6P2 lJC7A1RcltBjlp8ww4vy HQDkBSsoW85wcQRn w8K4GHSdzYZ9SDEhjRzx HhIrsR31Yvr+PGNvbGdy t0ZzQccwc4xyp7fbgPr4 IjMwJSIgdmFsaWdu GUP1i4ZqYy99M46lQPam ZHRoPSIzMCUiIHZhbGln gu4kqI7gMw1+PGNvbCB3 hXB4mO4uXlVhVaE5 SLteF643PnAzdQTmUrfg z1bux5cdcHm3MaUiLMXu faDxvMeqHGL3g5LySs48 U8MirXynt5YnJky2 cf50zIAho9P2pFH4R1Pf OIHddguilWDboHheYC0t NDFzipziTPKecB5hSJLl S7j3NtHlFcK4FPdf A0ZnoyH3TUGrpQFoHHCg jTWHvR5pbices8ntowfg ZwDeGPIoPYt5VOf7QBUb aNhlMdXaCRC1WmD8 JZC2gFOnyI2qyAlsgvqq jS5oMng+HGz4e2sxmZEd NM0fxAX3XQ64LB66yBHy p4M1mBR1P5GdBBIv nousjykutVY3RHLzIEVd xC09Ri1urHbfKf3bSAPs MUP1APOfxCCzN1DdbY5o TuDtDPAkAXAgN7Kc xCQzFIdsE566QJbsGgQ7 BDMmawKoW1IpIPUulJzg RoA5l6S5Ko4KTA83VI10 BU15cVGfq2Y7ePR7 X0XnJGEyunvchmhbwMH2 XNGkCNFzqG85Fe7rpUmh Bk0oIXCpLNS4XHWcyRMm Y5EysR0xGkPrXVYb IASfP7HryPImRFfcA238 VXmyBnA3UKMyswVrU6Cl JTVzgJucRwS1n4W0Fq5U Sx58MQ71YV98aLBi p8W1pHD8D1OkHPDuzzqi caeklXM6SNKlQQOuyG18 Ae2xiBloQz8fNBTgGKC9 ATXqaSJkV5PeqC3z AzOkBAAeIRBdX4KnwQKq AUifD463MHwyRxA7DEZz zfLwP8QpKYWwmYsaAjM1 i4D1Jg6VXFnysuk5 U5WlAgfyvBI+OX79LPTf LF35qEXcyXYjp6guySz7 BnOhGEEyXEC2bNwsNBch f0YlBYMhA52blOMc c2S7IVUg (more content not included)... Normal [facility] Consent for Treatmenton 08-21 Consent for Treatment [id number] #1.00CD:[address] [facility] Heart and Vascular Office/Cl inic Noteon 09-06-2022 [...] failure: Mother. Brenda Gehrig's disease: Father. Normal [facility] Comment on above: Result Comment: Elec tronically Signed By: Jameel CURRIE, Dayron Loaiza\.br\Date and Time Signed: 09/06/22 10:16 EDT Referrals Officeon 3 Referrals Office [id number] 9#1.00CD:[address] [facility] CT CHEST WO CONon 08-02-2022 CT CHEST [...] KAYY KAUR Date: 2022-08-02 10:52 Normal [facility] C. DIFF PCRon 07-28-2022 C. DIFFICILE PCR Negative Normal NEGATIVE [facility] Comment on above: Performed By: #### C DIFPOC #### [facility] [address] [place] [address] Dr. Spencer Braun OCC BLD IMMUNO SCREENon 03-0 OCCULT BLOOD Negative Normal NEGATIVE Comment on above: Performed By: #### C BC #### [facility] [address] [place] [address] Dr. Spencer Braun INSULINon 07-15-2022 Insulin 17.7 uIU/mL Normal 2.6-24.9 [facility] Comment on above: Performed By: #### I NSULIN ####[facility] [id number] [id number][address] Spencer Braun BNPon 07-14-2022 Natriuretic peptide B (Bld) [Mass/Vol] 197.0 pg/mL Normal <=1,800.0 Comment on above: Performed By: #### B PIPE FITTER WELDING, LIPID, CMP, T7, TSH #### [facility] [address] [place] [address] Dr. Spencer Braun CBC AUTO DIFFon 07-14-2022 BASO # 0.1 103/ul Normal 0.0-0.1 Comment on above: Performed By: #### C BC #### [facility] [address] [place] [address] Dr. Spencer Braun Basophils/100 WBC (Bld) 0.9 % Normal 0.2-2.0 Comment on above: Performed By: #### C BC #### [facility] [address] [place] [address] Dr. Spencer Braun EO # 0.2 103/ul Normal 0.0-0.7 [facility] Comment on above: Performed By: #### C BC #### [facility] [address] [place] [address] Dr. Spencer Braun Eosinophils/100 WBC (Bld) 2.5 % Normal 0.9-7.0 [facility] Comment on above: Performed By: #### C BC #### [facility] [address] [place] [address] Dr. Spencer Braun Erythrocyte distribution width (RBC) [Ratio] 13.8 % Normal 11.0-15.0 [facility] Comment on above: Performed By: #### C BC #### [facility] [address] [place] [address] Dr. Spencer Braun Hematocrit (Bld) [Volume fraction] 45.1 % Normal 36.0-48.0 Comment on above: Performed By: #### C BC #### [facility] [address] [place] [address] Dr. Spencer Braun Hemoglobin (Bld) [Mass/Vol] 14.7 g/dL Normal 12.0-16.0 Comment on above: Performed By: #### C BC #### [facility] [address] [place] [address] Dr. Spencer Braun IG # 0.04 10e3/ul Critically high 0.00-0.03 [facility] Comment on above: Performed By: #### C BC #### [facility] [address] [place] [address] Dr. Spencer Braun IG % 0.5 % Normal 0.0-0.5 Comment on above: Performed By: #### C BC #### [facility] [address] [place] [address] Dr. Spencer Braun LYMPH # 1.6 103/ul Normal 1.2-3.8 Comment on above: Performed By: #### C BC #### [facility] [address] [place] [address] Dr. Spencer Braun Lymphocytes/100 WBC (Bld) 20.4 % Critically low 20.5-60.0 Comment on above: Performed By: #### C BC #### [facility] [address] [place] [address] Dr. Spencer Braun MANUAL DIFF REQ NO Normal [facility] Comment on above: Performed By: #### C BC #### [facility] [address] [place] [address] Dr. Spencer Braun MCH (RBC) [Entitic mass] 28.8 pg Normal 26.7-34.0 Comment on above: Performed By: #### C BC #### [facility] [address] [address] [address] Spencer Braun MCHC (RBC) [Mass/Vol] 32.6 g/dL Normal 29.9-35.2 [facility] Comment on above: Performed By: #### C BC #### [facility] Laboratory [address] [id number] Spencer Braun MCV (RBC) [Entitic vol] 88.3 fL Normal 81.0-99.0 [facility] Comment on above: Performed By: #### C BC #### [facility] Laboratory [address] [address] [address] Spencer Braun MONO # 0.5 103/ul Normal 0.3-0.8 Comment on above: Performed By: #### C BC #### [facility] Laboratory [address] [place] [address] Dr. Spencer Braun Monocytes/100 WBC (Bld) 6.5 % Normal 1.7-12.0 Comment on above: Performed By: #### C BC #### [facility] Laboratory [address] [place] [address] Dr. Spencer Braun NEUT # 5.4 103/ul Normal 1.4-6.5 Comment on above: Performed By: #### C BC #### [facility] Laboratory [address] [place], [place] [id number] Dr. Spencer Braun Neutrophils/100 WBC (Bld) 69.2 % Normal 43.0-75.0 [facility] Comment on above: Performed By: #### C BC #### [facility] Laboratory [address] [place], [place] [id number] Dr. Spencer Braun Platelet mean volume (Bld) [Entitic vol] 9.1 fL Critically low 9.5-13.5 [facility] Comment on above: Performed By: #### C BC #### [facility] Laboratory [address] [place] [address] Dr. Spencer Braun PLT 190 103/ul Normal 150-450 [facility] Comment on above: Performed By: #### C BC #### [facility] Laboratory [address] [address] [address] Spencer Braun RBC 5.11 106/ul Normal 4.20-5.40 [facility] Comment on above: Performed By: #### C BC #### [facility] Laboratory [address] [address] [address] Spencer Braun WBC 7.7 103/ul Normal 4.0-11.0 Comment on above: Performed By: #### C BC #### [facility] Laboratory [address] [address] [address] Spencer Braun FREE THYROXINE INDEX T7on FTI 2.87 Normal 1.30-4.50 [facility] Comment on above: Performed By: #### B PIPE FITTER WELDING, LIPID, CMP, T7, TSH ####[facility] [address] [address]DrManish Braun T3U 33.0 % Normal 30.0-39.0 Comment on above: Performed By: #### B PIPE FITTER WELDING, LIPID, CMP, T7, TSH ####[facility] [address] [id number] Braun T4 [Mass/Vol] 8.70 ug/dL Normal 4.80-13.90 [facility] Comment on above: Performed By: #### B PIPE FITTER WELDING, LIPID, CMP, T7, TSH ####[facility] [address] [id number] Braun GLYCOHEMOGLOBIN A1Con 2022 ADA RECOMMENDATION SEE BELOW Normal [facility] Comment on above: Result Comment: ADA RECOMMENDED LIMIT 4.0 - 6.0 ADA THERAPEUTIC TARGET < 7.0 ACTION SUGGESTED > 7.0 Performed By: #### A 1C ####[facility] [address] [address]DrManish Braun Glucose [Mass/Vol] 123 mg/dL Normal [facility] Comment on above: Performed By: #### A 1C ####[facility] [address] [address]DrManish Braun HbA1c (Bld) [Mass fraction] 5.9 % Normal 4.5-6.2 Comment on above: Performed By: #### A 1C ####[facility] [address] [id number]. Spencer Braun IRONon 07-14-2022 Iron [Mass/Vol] 70.0 ug/dL Normal 50.0-170.0 [facility] Comment on above: Performed By: #### V ITAD, IRON #### [facility] Laboratory [address] [place], [place] [address] Dr. Spencer Braun LIPID PROFILEon 07-14-2022 CHOL-HDL RATIO NORM SEE BELOW Normal [facility] Comment on above: Result Comment: 3.3 - 4.4 LOW RISK 4.4 - 7.1 AVERAGE RISK 7.1 - 11.0 MODERATE RISK >11.0 HIGH RISK Performed By: #### B PIPE FITTER WELDING, LIPID, CMP, T7, TSH ####[facility] [address] [phone] Braun Cholesterol [Mass/Vol] 180 mg/dL Normal <=200 [facility] Comment on above: Performed By: #### B PIPE FITTER WELDING, LIPID, CMP, T7, TSH ####[facility] [address] [phone] Braun Cholesterol in HDL [Mass/Vol] 50 mg/dL Normal 40-60 Comment on above: Performed By: #### B PIPE FITTER WELDING, LIPID, CMP, T7, TSH ####[facility] [address] [phone] Braun Cholesterol in LDL [Mass/Vol] 105.8 mg/dL Normal Comment on above: Performed By: #### B PIPE FITTER WELDING, LIPID, CMP, T7, TSH ####[facility] [address] [phone] Braun Cholesterol.total/Cho lesterol in HDL [Mass ratio] 3.6 {ratio} Normal Comment on above: Performed By: #### B PIPE FITTER WELDING, LIPID, CMP, T7, TSH ####[facility] [address] [phone]. Spencer Braun HDL NORMAL > or = 60 mg/dl - LOW CARDIOVASCULAR RISK <40 mg/dl - HIGH CARDIOVASCULAR RISK Normal Comment on above: Performed By: #### B PIPE FITTER WELDING, LIPID, CMP, T7, TSH ####[facility] [address] [address]Dr. Spencer Braun LDL CALC NORMAL SEE BELOW Normal [facility] Comment on above: Result Comment: <100 mg/dl OPTIMAL 100 - 129 mg/dl NEAR OR ABOVE OPTIMAL 130 - 159 mg/dl BORDERLINE HIGH 160 - 189 mg/dl HIGH >190 mg/dl VERY HIGH Performed By: #### B PIPE FITTER WELDING, LIPID, CMP, T7, TSH ####[facility] [address] [address]Dr. Spencer Braun Triglyceride [Mass/Vol] 121 mg/dL Normal <=150 Comment on above: Performed By: #### B PIPE FITTER WELDING, LIPID, CMP, T7, TSH ####[facility] [address] [address]Dr. Spencer Braun VLDL CALC 24.2 mg/dL Normal Comment on above: Performed By: #### B PIPE FITTER WELDING, LIPID, CMP, T7, TSH ####[facility] [address] [address]DrManish Braun PROF 14(COMP METB)on 023 Albumin [Mass/Vol] 3.8 g/dL Normal 3.4-5.0 [facility] Comment on above: Performed By: #### B PIPE FITTER WELDING, LIPID, CMP, T7, TSH #### [facility] Laboratory [address] [address] [address] Spencer Braun Albumin/Globulin [Mass ratio] 1.0 {ratio} Normal Comment on above: Performed By: #### B PIPE FITTER WELDING, LIPID, CMP, T7, TSH #### [facility] Laboratory [address] [address] [address] Spencer Braun ALP [Catalytic activity/Vol] 135 U/L Critically high 46-116 [facility] Comment on above: Performed By: #### B PIPE FITTER WELDING, LIPID, CMP, T7, TSH #### [facility] Laboratory [address] [address] [address] Spencer Braun ALT [Catalytic activity/Vol] 20 U/L Normal 14-59 Comment on above: Performed By: #### B PIPE FITTER WELDING, LIPID, CMP, T7, TSH #### [facility] Laboratory [address] [place] [address] Dr. Spencer Braun Anion gap [Moles/Vol] 8.4 mmol/L Normal Comment on above: Performed By: #### B PIPE FITTER WELDING, LIPID, CMP, T7, TSH #### [facility] Laboratory [address] [place] [address] Dr. Spencer Braun AST [Catalytic activity/Vol] 14 U/L Critically low 15-37 Comment on above: Performed By: #### B PIPE FITTER WELDING, LIPID, CMP, T7, TSH #### [facility] [address] [place] [address] Dr. Spencer Braun Bilirubin [Mass/Vol] 0.4 mg/dL Normal 0.2-1.0 Comment on above: Performed By: #### B PIPE FITTER WELDING, LIPID, CMP, T7, TSH #### [facility] [address] [place] [address] Dr. Spencer Braun Calcium [Mass/Vol] 9.5 mg/dL Normal 8.5-10.1 [facility] Comment on above: Performed By: #### B PIPE FITTER WELDING, LIPID, CMP, T7, TSH #### [facility] Laboratory [address] [place] [address] Dr. Spencer Braun Chloride [Moles/Vol] 104 mmol/L Normal 98-107 [facility] Comment on above: Performed By: #### B PIPE FITTER WELDING, LIPID, CMP, T7, TSH #### [facility] Laboratory [address] [place] [address] Dr. Spencer Braun CO2 [Moles/Vol] 32.0 mmol/L Normal 21.0-32.0 [facility] Comment on above: Performed By: #### B PIPE FITTER WELDING, LIPID, CMP, T7, TSH #### [facility] [address] [place] [address] Dr. Spencer Braun Creatinine [Mass/Vol] 0.72 mg/dL Normal 0.55-1.02 Comment on above: Performed By: #### B PIPE FITTER WELDING, LIPID, CMP, T7, TSH #### [facility] Laboratory [address] [address] [address] Spencer Braun EGFR-AF INDONESIAN >60 Normal >=60 [facility] Comment on above: Performed By: #### B PIPE FITTER WELDING, LIPID, CMP, T7, TSH #### [facility] Laboratory [address] [place] [address] Dr. Spencer Braun EGFR-NON AF INDONESIAN >60 Normal >=60 Comment on above: Performed By: #### B PIPE FITTER WELDING, LIPID, CMP, T7, TSH #### [facility] [address] [place] [address] Dr. Spencer Braun Globulin (S) [Mass/Vol] 3.9 g/dL Normal Comment on above: Performed By: #### B PIPE FITTER WELDING, LIPID, CMP, T7, TSH #### [facility] [address] [place] [address] Dr. Spencer Braun Glucose [Mass/Vol] 127 mg/dL Critically high 74-106 [facility] Comment on above: Performed By: #### B PIPE FITTER WELDING, LIPID, CMP, T7, TSH #### [facility] [address] [place] [address] Dr. Spencer Braun Potassium [Moles/Vol] 4.4 mmol/L Normal 3.5-5.1 Comment on above: Performed By: #### B PIPE FITTER WELDING, LIPID, CMP, T7, TSH #### [facility] [address] [place] [address] Dr. Spencer Braun Protein [Mass/Vol] 7.7 g/dL Normal 6.4-8.2 [facility] Comment on above: Performed By: #### B PIPE FITTER WELDING, LIPID, CMP, T7, TSH #### [facility] [address] [place] [address] Dr. Spencer Braun Sodium [Moles/Vol] 140 mmol/L Normal 136-145 [facility] Comment on above: Performed By: #### B PIPE FITTER WELDING, LIPID, CMP, T7, TSH #### [facility] [address] [place] [address] Dr. Spencer Braun Urea nitrogen [Mass/Vol] 18.0 mg/dL Normal 7.0-18.0 Comment on above: Performed By: #### B PIPE FITTER WELDING, LIPID, CMP, T7, TSH #### [facility] [address] [place] [address] Dr. Spencer Braun Urea nitrogen/Creatinine [Mass ratio] 25.0 mg/mg Normal Comment on above: Performed By: #### B PIPE FITTER WELDING, LIPID, CMP, T7, TSH #### [facility] [address] [place] [address] Dr. Spencer Braun TSHon 07-14-2022 TSH 1.760 uIU/mL Normal 0.358-3.740 [facility] Comment on above: Performed By: #### B PIPE FITTER WELDING, LIPID, CMP, T7, TSH #### [facility] [address] [place] [address] Dr. Spencer Braun VITAMIN D 25 OHon 07-14-2022 VIT D 25-OH 85.7 ng/mL Normal Comment on above: Performed By: #### V DEBORAH, IRON #### [facility] [address] [place] [address] Dr. Spencer Braun VIT D RANGES SEE BELOW Normal Comment on above: Result Comment: <20 ng/mL Vit D deficient 20 - <30 ng/mL Vit D insufficient 30 - 100 ng/mL Vit D sufficient >100 ng/mL Potential Toxicity Performed By: #### V ITKINGS, IRON #### [facility] [address] [place] [address] Dr. Spencer Braun CBC AUTO DIFFon 04-30-2022 BASO # 0.1 103/ul Normal 0.0-0.1 Comment on above: Performed By: #### C BC #### [facility] [address] [place] [address] Dr. Spencer Braun Basophils/100 WBC (Bld) 0.9 % Normal 0.2-2.0 Comment on above: Performed By: #### C BC #### [facility] [address] [place] [address] Dr. Spencer Braun EO # 0.2 103/ul Normal 0.0-0.7 Comment on above: Performed By: #### C BC #### [facility] [address] [place] [address] Dr. Spencer Braun Eosinophils/100 WBC (Bld) 2.1 % Normal 0.9-7.0 Comment on above: Performed By: #### C BC #### [facility] [address] [place] [address] Dr. Spencer Braun Erythrocyte distribution width (RBC) [Ratio] 13.9 % Normal 11.0-15.0 Comment on above: Performed By: #### C BC #### [facility] [address] [place] [address] Dr. Spencer Braun Hematocrit (Bld) [Volume fraction] 46.2 % Normal 36.0-48.0 Comment on above: Performed By: #### C BC #### [facility] [address] [place] [address] Dr. Spencer Braun Hemoglobin (Bld) [Mass/Vol] 15.1 g/dL Normal 12.0-16.0 Comment on above: Performed By: #### C BC #### [facility] [address] [place] [address] Dr. Spencer Braun IG # 0.05 10e3/ul Critically high 0.00-0.03 [facility] Comment on above: Performed By: #### C BC #### [facility] [address] [place] [address] Dr. Spencer Braun IG % 0.6 % Critically high 0.0-0.5 [facility] Comment on above: Performed By: #### C BC #### [facility] [address] [place] [address] Dr. Spencer Braun LYMPH # 1.7 103/ul Normal 1.2-3.8 Comment on above: Performed By: #### C BC #### [facility] [address] [place] [address] Dr. Spencer Braun Lymphocytes/100 WBC (Bld) 20.3 % Critically low 20.5-60.0 Comment on above: Performed By: #### C BC #### [facility] [address] [place] [address] Dr. Spencer Braun MANUAL DIFF REQ NO Normal [facility] Comment on above: Performed By: #### C BC #### [facility] [address] [place] [address] Dr. Spencer Braun MCH (RBC) [Entitic mass] 28.8 pg Normal 26.7-34.0 Comment on above: Performed By: #### C BC #### [facility] [address] [place] [address] Dr. Spencer Braun MCHC (RBC) [Mass/Vol] 32.7 g/dL Normal 29.9-35.2 Comment on above: Performed By: #### C BC #### [facility] [address] [place] [address] Dr. Spencer Braun MCV (RBC) [Entitic vol] 88.2 fL Normal 81.0-99.0 Comment on above: Performed By: #### C BC #### [facility] [address] [place] [address] Dr. Spencer Braun MONO # 0.6 103/ul Normal 0.3-0.8 Comment on above: Performed By: #### C BC #### [facility] [address] [place] [address] Dr. Spencer Braun Monocytes/100 WBC (Bld) 7.1 % Normal 1.7-12.0 Comment on above: Performed By: #### C BC #### [facility] [address] [place] [address] Dr. Spencer Braun NEUT # 5.7 103/ul Normal 1.4-6.5 Comment on above: Performed By: #### C BC #### [facility] [address] [address] [address] Spencer Braun Neutrophils/100 WBC (Bld) 69.0 % Normal 43.0-75.0 Comment on above: Performed By: #### C BC #### [facility] [address] [address] [address] Spencer Braun Platelet mean volume (Bld) [Entitic vol] 9.2 fL Critically low 9.5-13.5 Comment on above: Performed By: #### C BC #### [facility] [address] [address] [address] Spencer Braun PLT 180 103/ul Normal 150-450 Comment on above: Performed By: #### C BC #### [facility] [address] [address] [address] Spencer Braun RBC 5.24 106/ul Normal 4.20-5.40 Comment on above: Performed By: #### C BC #### [facility] [address] [address] [address] Spencer Braun WBC 8.2 103/ul Normal 4.0-11.0 Comment on above: Performed By: #### C BC #### [facility] [address] [address] [address] Spencer Braun FREE T3on 04-30-2022 FREE T3 2.98 pg/mlL Normal 2.18-3.98 Comment on above: Performed By: #### L IPID, TSH, T4, FT3, CMP ####[facility] [address] [id number]. Spencer Braun GLYCOHEMOGLOBIN A1Con 2021 ADA RECOMMENDATION SEE BELOW Normal [facility] Comment on above: Result Comment: ADA RECOMMENDED LIMIT 4.0 - 6.0 ADA THERAPEUTIC TARGET < 7.0 ACTION SUGGESTED > 7.0 Performed By: #### A 1C ####[facility] [address] [address]Dr. Spencer Braun Glucose [Mass/Vol] 134 mg/dL Normal [facility] Comment on above: Performed By: #### A 1C ####[facility] [address] [id number]. Spencer Braun HbA1c (Bld) [Mass fraction] 6.3 % Critically high 4.5-6.2 Comment on above: Performed By: #### A 1C ####[facility] [address] [address]Dr. Spencer Braun LIPID PROFILEon 04-30-2022 CHOL-HDL RATIO NORM SEE BELOW Normal [facility] Comment on above: Result Comment: 3.3 - 4.4 LOW RISK 4.4 - 7.1 AVERAGE RISK 7.1 - 11.0 MODERATE RISK >11.0 HIGH RISK Performed By: #### L IPID, TSH, T4, FT3, CMP ####[facility] [address] [address]Dr. Spencer Braun Cholesterol [Mass/Vol] 177 mg/dL Normal <=200 [facility] Comment on above: Performed By: #### L IPID, TSH, T4, FT3, CMP ####[facility] [address] [address]Dr. Spencer Braun Cholesterol in HDL [Mass/Vol] 56 mg/dL Normal 40-60 Comment on above: Performed By: #### L IPID, TSH, T4, FT3, CMP ####[facility] [address] [place], [place] [address]Dr. Spencer Braun Cholesterol in LDL [Mass/Vol] 97.8 mg/dL Normal [facility] Comment on above: Performed By: #### L IPID, TSH, T4, FT3, CMP ####[facility] [address] [address]Dr. Spencer Braun Cholesterol.total/Cho lesterol in HDL [Mass ratio] 3.2 {ratio} Normal Comment on above: Performed By: #### L IPID, TSH, T4, FT3, CMP ####[facility] [address] [address]Dr. Spencer Braun HDL NORMAL > or = 60 mg/dl - LOW CARDIOVASCULAR RISK <40 mg/dl - HIGH CARDIOVASCULAR RISK Normal Comment on above: Performed By: #### L IPID, TSH, T4, FT3, CMP ####[facility] [address] [address]Dr. Spencer Braun LDL CALC NORMAL SEE BELOW Normal [facility] Comment on above: Result Comment: <100 mg/dl OPTIMAL 100 - 129 mg/dl NEAR OR ABOVE OPTIMAL 130 - 159 mg/dl BORDERLINE HIGH 160 - 189 mg/dl HIGH >190 mg/dl VERY HIGH Performed By: #### L IPID, TSH, T4, FT3, CMP ####[facility] [address] [place], [place] [address]Dr. Spencer Braun Triglyceride [Mass/Vol] 116 mg/dL Normal <=150 Comment on above: Performed By: #### L IPID, TSH, T4, FT3, CMP ####[facility] [address] [place], [place] [address]Dr. Spencer Braun VLDL CALC 23.2 mg/dL Normal Comment on above: Performed By: #### L IPID, TSH, T4, FT3, CMP ####[facility] [address] [place], [place] [address]Dr. Spencer Braun PROF 14(COMP METB)on 022 Albumin [Mass/Vol] 3.8 g/dL Normal 3.4-5.0 [facility] Comment on above: Performed By: #### L IPID, TSH, T4, FT3, CMP ####[facility] [address] [address]Dr. Spencer Braun Albumin/Globulin [Mass ratio] 0.9 {ratio} Normal Comment on above: Performed By: #### L IPID, TSH, T4, FT3, CMP ####[facility] [address] [address]Dr. Spencer Braun ALP [Catalytic activity/Vol] 143 U/L Critically high 46-116 Comment on above: Performed By: #### L IPID, TSH, T4, FT3, CMP ####[facility] [address] [address]Dr. Spencer Braun ALT [Catalytic activity/Vol] 19 U/L Normal 14-59 Comment on above: Performed By: #### L IPID, TSH, T4, FT3, CMP ####[facility] [address] [address]Dr. Spencer Braun Anion gap [Moles/Vol] 12.1 mmol/L Normal [facility] Comment on above: Performed By: #### L IPID, TSH, T4, FT3, CMP ####[facility] [address] [place], [place] [address]Dr. Spencer Braun AST [Catalytic activity/Vol] 17 U/L Normal 15-37 Comment on above: Performed By: #### L IPID, TSH, T4, FT3, CMP ####[facility] [address] [place], [place] [address]Dr. Spencer Braun Bilirubin [Mass/Vol] 0.3 mg/dL Normal 0.2-1.0 Comment on above: Performed By: #### L IPID, TSH, T4, FT3, CMP ####[facility] [address] [place], [place] [address]Dr. Spencer Braun Calcium [Mass/Vol] 9.5 mg/dL Normal 8.5-10.1 [facility] Comment on above: Performed By: #### L IPID, TSH, T4, FT3, CMP ####[facility] [address] [place], [place] [address]Dr. Spencer Braun Chloride [Moles/Vol] 102 mmol/L Normal 98-107 [facility] Comment on above: Performed By: #### L IPID, TSH, T4, FT3, CMP ####[facility] [address] [place], [place] [address]Dr. Spencer Braun CO2 [Moles/Vol] 32.6 mmol/L Critically high 21.0-32.0 [facility] Comment on above: Performed By: #### L IPID, TSH, T4, FT3, CMP ####[facility] [address] [address]Dr. Spencer Braun Creatinine [Mass/Vol] 0.69 mg/dL Normal 0.55-1.02 Comment on above: Performed By: #### L IPID, TSH, T4, FT3, CMP ####[facility] [address] [address]Dr. Spencer Braun EGFR-AF INDONESIAN >60 Normal >=60 [facility] Comment on above: Performed By: #### L IPID, TSH, T4, FT3, CMP ####[facility] [address] [place], [place] [address]Dr. Spencer Braun EGFR-NON AF INDONESIAN >60 Normal >=60 Comment on above: Performed By: #### L IPID, TSH, T4, FT3, CMP ####[facility] [address] [place], [place] [address]Dr. Spencer Braun Globulin (S) [Mass/Vol] 4.1 g/dL Normal Comment on above: Performed By: #### L IPID, TSH, T4, FT3, CMP ####[facility] [address] [address]Dr. Spencer Braun Glucose [Mass/Vol] 108 mg/dL Critically high 74-106 [facility] Comment on above: Performed By: #### L IPID, TSH, T4, FT3, CMP ####[facility] [address] [address]Dr. Spencer Braun Potassium [Moles/Vol] 4.7 mmol/L Normal 3.5-5.1 [facility] Comment on above: Performed By: #### L IPID, TSH, T4, FT3, CMP ####[facility] [address] [address]Dr. Maemarek Braun Protein [Mass/Vol] 7.9 g/dL Normal 6.4-8.2 [facility] Comment on above: Performed By: #### L IPID, TSH, T4, FT3, CMP ####[facility] [address] [address]Dr. Spencer Braun Sodium [Moles/Vol] 142 mmol/L Normal 136-145 [facility] Comment on above: Performed By: #### L IPID, TSH, T4, FT3, CMP ####[facility] [address] [address]Dr. Spencer Braun Urea nitrogen [Mass/Vol] 19.0 mg/dL Critically high 7.0-18.0 Comment on above: Performed By: #### L IPID, TSH, T4, FT3, CMP ####[facility] [address] [address]Dr. Spencer Braun Urea nitrogen/Creatinine [Mass ratio] 27.5 mg/mg Normal Comment on above: Performed By: #### L IPID, TSH, T4, FT3, CMP ####[facility] [address] [address]Dr. Spencer Braun T4on 04-30-2022 T4 [Mass/Vol] 8.30 ug/dL Normal 4.80-13.90 [facility] Comment on above: Performed By: #### L IPID, TSH, T4, FT3, CMP ####[facility] [address] [id number]. Spencer Braun TSHon 04-30-2022 TSH 1.777 uIU/mL Normal 0.358-3.740 [facility] Comment on above: Performed By: #### L IPID, TSH, T4, FT3, CMP ####[facility] [address] [address]Dr. Spencer Braun VITAMIN D 25 OHon 04-30-2022 VIT D 25-OH 72.1 ng/mL Normal Comment on above: Performed By: #### V ITAD #### [facility] [address] [address] [address] Spencer Braun VIT D RANGES SEE BELOW Normal Comment on above: Result Comment: <20 ng/mL Vit D deficient 20 - <30 ng/mL Vit D insufficient 30 - 100 ng/mL Vit D sufficient >100 ng/mL Potential Toxicity Performed By: #### V ITAD #### [facility] [address] [address] [address] Spencer Braun MG MAMM SCREEN 3D AWAIS CADon 02-16-2022 MG MAMM SCREEN 3D AWAIS CAD Patient: BETH STARKEY Exam Date: 02/16/2022 : 1940 Gender:F Ordering : DR MARCK TATE . Admission #: [id number] Family : Order #: [id number] CLICK HERE TO VIEW EXAM RADIOLOGY REPORT [...] prostate cancer at age 71. LOCATION: [facility] BREAST COMPOSITION: Heterogeneously dense,which may obscure small [...] Encarnacion MD on 02/17/2022 at 07:39 Normal Vital Signs Date Time Vital Sign Value Performing Clinician Faci lity 12-16-2023 15:18-0400 Diastolic blood pressure 68 mm[Hg] Tam Martínezn [facility] 12-16-2023 15:18-0400 Systolic blood pressure 118 mm[Hg] Tam Martíneznus [facility] 05-12-2023 10:13-0500 Diastolic blood pressure 72 mm[Hg] Sha Velascofroy [facility] 05-12-2023 10:13-0500 Heart rate 94 /min Sha Vallejo [facility] 05-12-2023 10:13-0500 SaO2% (BldA) [Mass fraction] 90 % Sha Vallejo [facility] 05-12-2023 10:13-0500 Systolic blood pressure 130 mm[Hg] Sha Barrerasilke [facility] 05-03-2023 12:24-0500 Diastolic blood pressure 59 mm[Hg] Jena Hicks MD Work Phone: [facility] 05-03-2023 12:24-0500 Heart rate 86 /min Jena Hicks MD Work Phone: [facility] 05-03-2023 12:24-0500 Systolic blood pressure 103 mm[Hg] Jena Hicks MD Work Phone: [facility] 05-03-2023 12:14-0500 Body height 152.4 cm Jena Hicks MD Work Phone: [facility] 05-03-2023 12:14-0500 Body temperature 98.29 [degF] Jena Hicks MD Work Phone: [facility] 05-03-2023 12:14-0500 Body weight 65.82 kg Jena Hicks MD Work Phone: [facility] 05-03-2023 12:14-0500 Respiratory rate 16 /min Jena Hicks MD Work Phone: [facility] 05-03-2023 12:14-0500 SaO2% (BldA) [Mass fraction] 93 % Jena Hicks MD Work Phone: [facility] 09-06-2022 09:39-0400 Blood Pressure Location Dayron Jorgensen [facility] 09-06-2022 09:39-0400 Diastolic blood pressure 81 mm[Hg] Dayron Jorgensen [facility] 09-06-2022 09:39-0400 Heart rate 103 /min [facility] 09-06-2022 09:39-0400 SaO2% (BldA) [Mass fraction] 90 % [facility] 09-06-2022 09:39-0400 Systolic blood pressure 126 mm[Hg] Dayron Jorgensen [facility] Encounters Encounter Date Encounter Type Care Provider Facility Start: 12-16-2023 End: 12-17-2023 Pre-admission assessment Tam Vallejo [facility] Start: 11-09-2023 End: 11-09-2023 ambulatory FORREST MARTIN Not Available Start: 05-30-2023 End: 05-30-2023 ambulatory FORREST AMRTIN Not Available Start: 05-12-2023 End: 05-13-2023 ambulatory Sha Vallejo [facility] Start: 05-12-2023 End: 05-12-2023 Patient encounter procedure Sha Vallejo [facility] Start: 05-04-2023 Orders Only Jena Hicks MD Work Phone: [facility] Surg Dept Comment on above: 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); Bilateral carotid artery stenosis; Other disorders of arteries, arterioles and capillaries in diseases classified elsewhere (HCC) Start: 05-03-2023 End: 05-03-2023 ambulatory JENA HICKS Facility:[facility] Start: 05-03-2023 End: 05-03-2023 Office outpatient visit 25 minutes Jena Hicks MD Work Phone: [facility] Surg Dept Comment on above: 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) Start: 04-26-2023 Orders Only Jena Hicks MD Work Phone: Vascular Surg Dept Comment on above: Chest pain, unspecif ied type (Primary Dx) Start: 04-25-2023 Telephone encounter No Pcp [employer] [facility] Comment on above: Appointment Start: 04-22-2023 Telephone encounter No One (Historic al) Referring Physician Comment on above: External Referrals/r esources Start: 04-20-2023 End: 04-20-2023 ambulatory FORREST SALAZAR Not Available Start: 03-23-2023 End: 03-24-2023 ambulatory Sha Vallejo [facility] Start: 03-23-2023 End: 03-23-2023 Patient encounter procedure Sha Vallejo [facility] Start: 01-20-2023 End: 01-21-2023 ambulatory Sha Vallejo Facility:[facility] Start: 01-20-2023 End: 01-20-2023 Patient encounter procedure Sha Vallejo [facility] Start: 10-11-2022 End: 10-12-2022 ambulatory Dayron Jorgensen Facility:[facility] Start: 09-24-2022 End: 09-25-2022 ambulatory Dayron Jorgensen Facility:[facility] Start: 09-24-2022 End: 09-24-2022 Patient encounter procedure Dayron Jorgensen [facility] Start: 09-06-2022 End: 09-07-2022 ambulatory Dayron Jorgensen Facility:[facility] Start: 09-06-2022 End: 09-06-2022 Patient encounter procedure Dayron Jorgensen [facility] Start: 08-02-2022 End: 08-03-[address] MARCK TATE . Facility:[facility] Start: 07-28-2022 End: 07-28-[address] MARCK TATE . Facility:[facility] Start: 07-14-2022 End: 07-15-[address] MARCK TATE . Facility:[facility] Start: 04-30-2022 End: 05-01-[address] MARCK TATE . Facility:[facility] Start: 02-16-2022 End: 02-17-[address] MARCK TATE . Facility: Start: 06-17-2017 End: 06-18-2017 Ambulatory DEFAULT PHYSICIAN Facility:[facility] Plan of Treatment Date Care Activity Detail Author Start: 07-04-2029 Urine microalbumin profile DTaP,Tdap,Td Vaccine (2 - Td or Tdap) [facility] Start: 01-21-2023 Influenza vaccination Influenza Vacc ine (#1) [facility] Start: 05-23-2022 Advance Directive Discussion Advance Directive Discussion [facility] Start: 05-23-2022 Depression Assessment Depression Ass essment [facility] Start: 05-18-2017 Pneumococcal Vaccine : 65+ (2 - PPSV23 or PCV20) Pneumococcal Vaccine: 65+ (2 - PPSV23 or PCV20) [facility] Start: 2006 Bone Density Screening Bone Density Screening [facility] Start: 2006 Pneumococcal Vaccine : 65+ (1 - PCV) Pneumococcal Vaccine: 65+ (1 - PCV) [facility] Start: 2006 Screening for osteoporosis Bone Density Screening [facility] Start: 2001 RSV Vaccine (1 - 1-d ose 60+ series) RSV Vaccine (1 - 1-dose 60+ series) [facility] Start: 1991 Shingrix Vaccine (1 of 2) Shingrix Vaccine (1 of 2) [facility] Start: 1986 Diabetes Screening Diabetes Screenin g [facility] Start: 1940 Covid-19 Vaccine (#1) Covid-19 Vacci ne (#1) [facility] End: 05-25-2024 Ct angio abd&plvis cntrst mtrl w/wo cntrst img CTA ABD/PEL WO/W IVCON Radiology Routine Chest pain, unspecified type 1 Occurrences starting 04/26/2023 until 05/25/2024 [facility] Work Phone: Comment on above: 1 Occurrences starti ng 04/26/2023 until 05/25/2024 End: 06-02-2024 Ct angio abd&plvis cntrst mtrl w/wo cntrst img CTA ABD/PEL WO/W IVCON Radiology Routine 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 Occurrences starting 05/04/2023 until 06/02/2024 [facility] Work Phone: Comment on above: 1 Occurrences starti ng 05/04/2023 until 06/02/2024 End: 05-25-2024 Ct angiography chest w/contrast/noncontrast CTA CHEST (NONGATED) WO/W IVCON Radiology Routine Chest pain, unspecified type 1 Occurrences starting 04/26/2023 until 05/25/2024 [facility] Work Phone: Comment on above: 1 Occurrences starti ng 04/26/2023 until 05/25/2024 End: 06-02-2024 Ct angiography chest w/contrast/noncontrast CTA CHEST (NONGATED) WO/W IVCON Radiology Routine 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 Occurrences starting 05/04/2023 until 06/02/2024 [facility] Work Phone: Comment on above: 1 Occurrences starti ng 05/04/2023 until 06/02/2024 End: 05-04-2024 PVR ANK/HILL/TOE AWAIS VAS LAB PVR ANK/HLIL/TOE AWAIS VAS LAB Vascular Lab Routine 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) Other disorders of arteries, arterioles and capillaries in diseases classified elsewhere (HCC) 1 Occurrences starting 05/04/2023 until 05/04/2024 [facility] Work Phone: Comment on above: 1 Occurrences starti ng 05/04/2023 until 05/04/2024 End: 05-04-2024 US CAROTID ARTERIES AWAIS VAS LAB US CAROTID ARTERIES AWAIS VAS LAB Vascular Lab Routine Bilateral carotid artery stenosis 1 Occurrences starting 05/04/2023 until 05/04/2024 [facility] Work Phone: Comment on above: 1 Occurrences starti ng 05/04/2023 until 05/04/2024 [facility] Payers Date Payer Category Payer [employer] and others) [id number] 2006 Medicare MEDICARE MEDICAR E A AND B [id number] 2006-Present [phone] [place] [address] Medicare [id number] 1959 [employer] ( and others) [id number] 1959 Medicare [id number] 1940 Unknown [id number] [id number]. 2.593 1940 Unknown [id number] 2.840.1.453858.3.579. 2.593 1940 Unknown [id number] 2.840.1.229923.3.579. 2.593 1940 Unknown [id number] 2.16.840.1.731728.3.579. 2.593 1940 Unknown [id number] 2.16.840.1.164314.3.579. 2.593 1940 Unknown [id number] 2.16.840.1.835845.3.579. 2.727 1940 Unknown [id number] 2.16.840.1.501644.3.579. 2.727 1940 Unknown [id number] 2.16.840.1.061972.3.579. 2.727 1940 Unknown [id number] 2.16.840.1.407875.3.579. 2.727 1941 Unknown [id number] 2.16.840.1.243129.3.579. 2.727 1940 Unknown [id number] 2.16.840.1.174785.3.579. 2.727 1940 Unknown [id number] 2.16.840.1.379570.3.579. 2.1259 1940 Unknown [id number] 2.16.840.1.149593.3.579. 2.1259 1940 Unknown [id number] 2.16.840.1.442756.3.579. 2.1259 Unknown Social History Date Type Detail Facility Start: 09-06-2022 End: 12-16-2023 Tobacco smoking status Heavy tobacco smoker (finding) [facility] Start: 05-03-2023 Sex Assigned At Female F [facility] consumption unknown [facility] Start: 1940 Sex Assigned At Not on file [facility] Start: 05-23-1956 Tobacco smoking stat [facility] Smokes tobacco daily [facility] Start: 05-23-1956 History of tobacco use Cigarette Smo ker [facility] Start: 05-03-2023 Cigarettes smoked current (pack per day) - Reported 1.5 [facility] Start: 05-03-2023 Tobacco use and exposure Smokeless tobacco non-user [facility] Start: 05-03-2023 Alcohol intake Current drinke r of alcohol (finding) [facility] National Score (1-10 0), lower number is lower risk 87 [facility] Start: 05-03-2023 Alcohol Comment football season [facility] Functional Status Date Assessment Result Facility 12-16-2023 Functional Status N/A [facility] 05-12-2023 Functional Status N/A [facility] 09-06-2022 Functional Status No Flores - T [facility] Clinical Notes 03-21-2023 to 05-26-2023 Jena Hicks MD - 05/03/2023 12:42 PM ESTTelephone Encounter - Alondra Quiros - 04/25/2023 4:18 PM ESTTelephone Encounter - Des GarciaPatrizia - 04/22/2023 10:05 AM ESTRadiologyRadiology Note Date & Type Note Facility 05-26-2023 Note Patient Outreach ([facility]) BETH STARKEY ([id number]) 1940 F Date Time Provider Department 05/26/23 [...] and brochure sent Lung Nodule Program Location: [facility] As of Date: 05/26/2023 (No Known [...] Encounter Status:Closed by EVANGELINA BURNETT on 05/26/23 [facility] 05-26-2023 Note HNO ID: [id number] Author: ?, ?, ? Service: ? Author [...] and brochure sent Lung Nodule Program Location[place] [facility] 05-18-2023 Note Patient Outreach ([facility]) BETH STARKEY ([id number]) 1940 F Date Time Provider Department 05/18/23 CROW BELLOSteven During your visit today, we recorded the following information about you: Crow Bello, CHELSEA.[facility] 05/18/2023 11:12 AM Signed Incidental Lung Nodule Enrollment Outreach attempt: 1st Attempt Outreach status: Complete Enrolled in Lung Nodule program: Referred Lung Nodule outreach: No outreach - Very small nodule, letter and brochure sent Lung Nodule Program Location: [facility] As of Date: 05/18/2023 (No Known [...] Encounter Status:Closed by CROW BELLO on 05/18/23 [facility] 05-18-2023 Note HNO ID: [id number] Author: Crow Bello APRN.[employer] Service: ? Author Type: Nurse Practitioner Type: Progress Notes Filed: 05/18/2023 11:12 AM Note Text: Incidental Lung Nodule Enrollment Outreach attempt: 1st Attempt Outreach status: Complete Enrolled in Lung Nodule program: Referred Lung Nodule outreach: No outreach - Very small nodule, letter and brochure sent Lung Nodule Program Location[place] [facility] 05-03-2023 Note HNO ID: [id number] Author: Nadine Cummins RN Service: Radiology Author [...] DATE: May 03, 2023 TIME: 1:00 PM [facility] 05-03-2023 Note HNO ID: [id number] Author: Kandy Aragon RT(Gilberto) Service: Radiology Author Type: Technologist Type: Progress [...] Intact, Site disposition Discontinued SIGNED BY: RT Tess(Gilberto) May 03, 2023 1:19 PM [facility] 05-03-2023 History and physical note Heart , Vascular and Thoracic [place] DEPARTMENT OF VASCULAR SURGERY OUTPATIENT VISIT DATE [...] 4 - Moderate documented in this encounter [facility] 04-25-2023 Miscellaneous Notes Reason for call: Ms Starkey called,and she would like to schedule an appointment with vascular surgery Referred by Dr Judit [facility] and cell number: [phone] Diagnosis: AAA Kind Regards Jaelynn documented in this encounter [facility] 04-22-2023 Miscellaneous Notes Patient: Beth Starkey Date of : 1940 Patient phone number: [phone] Referring Provider for the encounter: Marck Tate MD Requesting Provider: N/A Reason for requesting visit (RFV/signs and symptoms/diagnosis): Sent Telephone Encounter - updated tracking. Person calling: caregiver: Patrizia Return call to: self Medical Records/Insurance Card scanned into [employer]: Yes Comments: N/A documented in this encounter [facility] 03-23-2023 Evaluation + Plan note Diagnostic Tests PendingCreatinine 03/23/23 Future Scheduled TestsCTA Abd Aorto-bilat/ iliofemoral runoff 03/22/23 [facility] 03-22-2023 Evaluation + Plan note Future Scheduled TestsCTA Abd Aorto-bilat/ iliofemoral runoff 03/22/23 [facility] 03-21-2023 Note History of Present I llness [...] 6 cm. Beth Starkey denies having a learning strategist at this time. She denies chest pain or dyspnea. She does have some dyspnea on exertion. Beth Starkey has a history of 2 stents placed in her heart by Dr. Wells at [place]. Review of Systems Constitutional: no fever, no [...] with voice recognition artificial intelligence software, specifically [employer], [employer] and or [employer]. Substitutions may have occurred with voice recognition and artificial intelligence software. ATTESTATION: Documentation services were performed after patient or guardian consented to allow [employer] experience to record this visit. SANTOS flight operations specialist and provider reviewed before signing. SANTOS: [...] heart failure: Mother. Brenda Gehrig's disease: Father. [facility] Comment on above: Result Comment: Elec tronically Signed By: Genevieve CURRIE, Sha Bustos\.br\Date and Time Signed: 03/21/23 11:20 EDT\.br\Electronically Co-Signed By: Beth Sanders\.br\Date and Time Co-Signed: 01/20/23 12:18 EDT Evaluation + Plan note Future Appointments Appointment Date:10/11/2022 10:00:00 AM Scheduled Provider:Dayrno Jorgensen MD Location:[facility] Appointment Type:Vascular Follow Up ([facility]) Future Scheduled TestsCTA Abdomen and Pelvis 09/06/22CTA Chest 09/06/22 [facility] Evaluation + Plan note Future Appointments Appointment Date:10/11/2022 10:00:00 AM Scheduled Provider:Dayron Jorgensen MD Location:[facility] Appointment Type:Vascular Follow Up ([facility]) [facility] Evaluation + Plan note Future Scheduled TestsCTA Abd Aorto-bilat/ iliofemoral runoff 03/22/23 [facility] Evaluation + Plan note Future Appointments Appointment Date:06/18/2024 09:45:00 AM Scheduled Provider:Tam Vallejo MD Location[facility] [place] Appointment Type:Cardiology Follow Up (FT) Future Scheduled TestsCTA Abd Aorto-bilat/ iliofemoral runoff 03/22/23 [facility] Evaluation note Diagnosis Chest pain, unspecified type- Primary documented in this encounter [facility] Diagnosis 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 documented in this encounter [facility] note* Diagnosis 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 Bilateral carotid artery stenosis Occlusion and stenosis of carotid artery without mention of cerebral infarction Other disorders of arteries, arterioles and capillaries in diseases classified elsewhere (HCC) [facility] Narrative No data available for this section [facility] No data available for this section [facility] No data available for this section [facility] Outpatient Procedure (Routine) - Authorized Specialty Diagnoses / Procedures Referred By Manjula jovel Referred To [facility] Diagnoses 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) Procedures CTA ABD/PEL WO/W IVCON CT ANGIO ABD&PLVIS CNTRST MTRL W/WO CNTRST IMJena Burgos MD [address] [place] [address] [address] [facility] [place] [address] Referral ID Status Reason Start Date Expiration Date Visits Requested Visits Authorized [id number] Authorized Auto-Generat ed Referral 3 06/02/2024 1 1 * MRI/CT (Routine) - Authorized Specialty Diagnoses / Procedures Referred By Contac t Referred To Contact CT IMAGING Diagnoses 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) Procedures CTA CHEST (NONGATED) WO/W IVCON CT ANGIOGRAPHY CHEST W/CONTRAST/NONCONTRAST Jena Hicks MD [address] [place] [address] [address] [facility] [place] [address] Referral ID Status Reason Start Date Expiration Date Visits Requested Visits Authorized [id number] Authorized Auto-Generat ed Referral 3 06/02/2024 1 1 * Outpatient Procedure (Routine) - Authorized Specialty Diagnoses / Procedures Referred By Contac t Referred To [facility] Diagnoses Bilateral carotid artery stenosis Procedures US CAROTID ARTERIES AWAIS VAS LAB DUPLEX SCAN EXTRACRANIAL ART COMPL BI STUDY Jena Hicks MD [address] [place] [address] [facility] [place] [address] [place] [address] Referral ID Status Reason Start Date Expiration Date Visits Requested Visits Authorized [id number] Authorized Auto-Generat ed Referral 3 05/03/2024 1 1 [facility] Summary Purpose Family History No Family History Records FoundNo Family History Records Found No data available for this section No data available for this section No Family History Records FoundNo Family History Records FoundNo Family History Records Found No data available for this section Advance Directives No Advanced Directives Records FoundNo Advanced Directives Records FoundNo Advanced Directives Records FoundNo Advanced Directives Records FoundNo Advanced Directives Records Found Reason for Referral Specialty Diagnoses / Procedures Referred By Contac t Referred To Contact CT IMAGING Diagnoses Chest pain, unspecified type Procedures CTA ABD/PEL WO/W IVCON CT ANGIO ABD&PLVIS CNTRST MTRL W/WO CNTRST IMGES Jena Hicks MD [address] [place] [address] [address] [facility] [place] [address] Referral ID Status Reason Start Date Expiration Date Visits Requested Visits Authorized [id number] Authorized Auto-Generat ed Referral 04/26/2023 05/25/2024 1 1 Specialty Diagnoses / Procedures Referred By Contac t Referred To Contact CT IMAGING Diagnoses Chest pain, unspecified type Procedures CTA CHEST (NONGATED) WO/W IVCON CT ANGIOGRAPHY CHEST W/CONTRAST/NONCONTRAST Jena Hicks MD [address] [place] [address] [address] [facility] [place] [address] Referral ID Status Reason Start Date Expiration Date Visits Requested Visits Authorized [id number] Authorized Auto-Generat ed Referral 04/26/2023 05/25/2024 1 1 Additional Source Comments INFORMATION SOURCE (unrecogn ized section and content) DATE CREATED AUTHOR 11/14/2017 [facility] DATE CREATED AUTHOR AUTHOR'S ORGANIZ ATION 08/09/2022 [facility] DATE CREATED AUTHOR AUTHOR'S ORGANIZ ATION 05/27/2023 [facility] DATE CREATED AUTHOR AUTHOR'S ORGANIZ ATION 05/30/2023 [facility] DATE CREATED AUTHOR AUTHOR'S ORGANIZ ATION 11/11/2023 [facility] EPIC Patient Care team informatio n (unrecognized section and content) Personnel Name: Marck Tate MD Address: Address: [address] [place] [address] [place], [place] [address] 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 Mat 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 Relationship Specialty [place] [address] [place] [address] [place] [address] [facility] 04/22/23 [employer]ogshead Mat Assembler Relationship Specialty Start Date End Date Marck Tate MD [address] [place] [facility] [place] [address] [facility] 04/22/23 Hogshead Mat Assembler Relationship Specialty Start Date End Date Marck Tate MD [address] [place] [facility] [place] [address] [facility] 04/22/23 Hogshead Mat Assembler Relationship Specialty Start Date End Date Marck Tate MD [address] [place] [facility] [place] [address] [facility] 04/22/23 Source Comments (unrecognize d section and content) In the event this informatio n is protected by the Federal Confidentiality of Alcohol and Drug Abuse Patient Records regulations: The Federal rules restrict any use of the information to criminally investigate or prosecute any alcohol or drug abuse patient.[facility] the event this information is protected by the Federal Confidentiality of Alcohol and Drug Abuse Patient Records regulations: The Federal rules restrict any use of the information to criminally investigate or prosecute any alcohol or drug abuse patient.[facility] the event this information is protected by the Federal Confidentiality of Alcohol and Drug Abuse Patient Records regulations: The Federal rules restrict any use of the information to criminally investigate or prosecute any alcohol or drug abuse patient.[facility] the event this information is protected by the Federal Confidentiality of Alcohol and Drug Abuse Patient Records regulations: The Federal rules restrict any use of the information to criminally investigate or prosecute any alcohol or drug abuse patient.[facility] the event this information is protected by the Federal Confidentiality of Alcohol and Drug Abuse Patient Records regulations: The Federal rules restrict any use of the information to criminally investigate or prosecute any alcohol or drug abuse patient.[facility] Reason for Visit (unrecogniz ed section [...] BE BASED ON THE PRIMARY CLINICAL RECORDS. [facility], [facility]. provides no warranty or guarantee of the accuracy or completeness of information in this document.
[2023-12-23 10:02] LABS: Estimated GFR (African America >60 (>=60); Estimated GFR (Non-African Ame >60 (>=60)
== END 2023-12-23 09:53 | disposition home or self-care (01) ==
LOC: LAB 09:53
PROVIDERS: Nurse Practitioner Family; PCP Family Medicine; Visit Provider Family Medicine
DX: Z01.812 Encounter for preprocedural laboratory examination (principal)
CPT/HCPCS: 36415; 82565

== ENCOUNTER 2024-01-02 08:32 | Outpatient (OUT) | payer MEDICARE, OTHER, SELFPAY ==
--- NOTE | 2024-01-02 | NM_ITS ---
Patient Name: ADELA PARDO MR#: [id number] : 1940 Exam Date: 01/02/2024 Ordering Doctor: Non-Staff Physician RADIOLOGY REPORT PROCEDURE: NM BOB PERF SPECT REST OR STR COMPARISON: None. TECHNIQUE: Exam Description: Rest Only one day protocol gated SPECT Rest Imagin.3 mCi Tc-99m Cardiolite IV on 01/02/2024 Stress Imaging not performed Symptoms: Rest and peak stress ECG findings were canceled and the exercise portion of the study was canceled per attending physician Dr. Matthew due to severe wheezing and shortness of breath. For more details please see separate cardiac stress test report. FINDINGS: Limited rest only images demonstrate a moderate-sized area mildly decreased uptake in the mid and basilar segment of the anterior wall and within the basilar mid and apically segments of the inferior wall. CONCLUSION: Limited rest only images demonstrate perfusion abnormalities in the anterior and inferior meeks. Further evaluation suggested Dictated by: Richard Encarnacion MD on 01/03/2024 at 14:12 Approved by: Richard Encarnacion MD on 01/03/2024 at 14:13
--- OUTSIDE RECORDS SUMMARY | 2024-01-02 08:55 | XMS_ITS | CCD ---
Author Organization [facility] Care Team Providers Care Stars Analytical Lead Name Role Phone PHYSICIAN, DEFAULT Unavailable Unavailable PHYSICIAN, DEFAULT Unavailable Unavailable MARCK TATE Unavailable Unavailable HOY ., DR ACHARYA Admitting Unavailable HOY ., DR ACHARYA Attending Unavailable HOY ., DR ACHARYA Primary Care Unavailable HOY ., DR ACHARYA Consulting Unavailable COLON, DR SANDOVAL Ferguson Consulting Unavailable HOY ., DR ACHARYA Admitting Unavailable HOY ., DR ACHARYA Attending Unavailable HOY ., DR ACHARYA Primary Care Unavailable HOY ., DR ACHARYA Consulting Unavailable ZIEB, DR KAYY Macias Consulting Unavailable HOY ., [...] Unavailable HOY ., DR ACHARYA Consulting Unavailable NelsonyMarck Primary Care Physician Marck Tate MD Unavailable AMBANI, JENA Referring Unavailable AMBANI, JENA Attending Unavailable MARTIN, FORREST Attending Unavailable MARTINBALDOMERO ShortY Attending Unavailable FORREST SALAZAR Attending Unavailable Sha Vallejo Attending Unavaila ble NONE, XXXX Referring Unavailable Sha Vallejo Attending Unavaila ble NONE, XXXX Referring Unavailable MD Tam Vallejo Attending Unavailable NONE, XXXX Referring Unavailable Sha Vallejo Attending Unavaila ble Sha Vallejo Admitting Unavaila ble NONE, XXXX Referring Unavailable Allergies Allergy Classification Reported Allergen(s) Allergy Type Date of Onset Reaction(s) Facility (1 source) No Known Medication Allergies; Translations: [No Known Medication Allergies] Propensity to adverse reactions (disorder) [facility] Repository Medications Current Medications Medication Drug [...] Daily, # 30 tab(s), Refills(s) 6, Pharmacy: [facility] #[id number], 152, cm, 12/16/23 15:27:00 EDT, Height/Length Dosing, [...] (3 sources) Dietary Cholesterol Absorption Inhibitor Start: 4 Zetia 10 mg Tab Refills(s) 0 Start [...] Daily, # 30 tab(s), Refills(s) 6, Pharmacy: [facility] #[id number], 152, cm, 12/16/23 15:27:00 EDT, Height/Length Dosing, [...] a day. 0 04/06/2023 Active Start: 01-20-2023 Judit Palumbo 1 00 mcg-50 mcg inhalation powder Refill(s) [...] disease (2 sources) Atherosclerotic heart disease of [place] coronary artery without angina pectoris; Translations: [Coronary [...] Reference Range Facility Heart and Vascular Office/Cl dipti Noteon 12-16-2023 Heart and Vascular Office/Clinic Note Heart and Vascular Office/Clinic Note Chief Complaint 6 month f/u CAD/HTN History of Present Illness The patient is a pleasant 83-year-old female with past cardiac history of coronary artery disease, PCI to the RCA with 2 Palmaz Bernie BMS in 1995, extensive thoracoabdominal aortic aneurysm, hypertension, diabetes, current smoker of at least a pack a day, who presents today for a scheduled follow-up appointment. She states she is not feeling too bad. Bothered by chronic shortness of breath, related to smoking. In terms of her aneurysm management, she was opted for medical management as she was not felt to be a good surgical candidate. Review of Systems ROS - Provider Constitutional: no fever, no chills, no fatigue Skin:no rash, no lesions ENMT: no ear pain, no sore throat, no congestion. Respiratory: yes shortness of breath, no cough, no wheezing. Cardiovascular: no chest pain, no palpitations, no edema. Gastrointestinal: no nausea, no vomiting, no diarrhea, no GI bleeding. Genitourinary: no dysuria, no frequencyno hematuria Musculoskeletal: no back pain, no trauma. Neurologic: no headache, no dizziness, no numbness, no weakness. Psychiatric: no sleeping problems, no irritability, no mood swings/depression. Heme/Lymph: no bleeding tendency, no bruising tendency, no petechiae, Allergy/Immuno logic: no seasonal allergies, no food allergies, no recurrent infections Physical Exam Vitals & Measurements BP: 118/68 HT: 60 in HT: 152 cm WT: 69.1 kg WT: 152.02 lb BMI: 29.91 General: alert, no acute distress Neck: Supple, noJVD nocarotid bruit Cardiovascular: regular rate and rhythm, no murmur normal peripheral perfusion Respiratory: Lungs CTAB, respirations non labored Extremities: no edema left lower extremity. no edema right lower extremity Neurological: oriented x 4, LOC appropriate for age, speech normal Skin: Warm, dry, intact- no rash or concerning lesions Procedure (09/24/2022 10:55 EDT CTA Chest) IMPRESSION: Thoracic aortic aneurysm of the descending [...] assessed with follow-up pelvic ultrasound as indicated. [1] Assessment/Plan 83-year-old female with history of coronary artery disease/PCI remotely, extensive thoracoabdominal aortic aneurysm, presents for a routine follow-up appointment. Shortness of breath may be related to underlying smoking; it would be reasonable to order a transthoracic echocardiogram, as well as MPI in the setting of remote CAD, multiple risk factors. Will start Lipitor instead of ezetimibe. Continue aspirin. Blood pressure control is crucial. I would like to start metoprolol succinate 25 mg, amlodipine can be stopped. Target SBP less than 120 mmHg. The patient will need an appointment for blood pressure recheck; fasting lipids in 3 to 4 weeks. Abdominal arctic aneurysm to be managed medically. Smoking cessation was advised, however, it does not seem like the patient is planning to quit. 1. Abdominal aortic aneurysm (I71.40: Abdominal aortic aneurysm, without rupture, unspecified) 2. CAD in [place] artery (I25.10: Atherosclerotic heart disease of [place] coronary artery without angina pectoris) 3. HTN (hypertension) (I10: Essential (primary) hypertension) Follow-up No qualifying data available 6 months, earlier if clinically indicated Problem List/Past Medical History Ongoing No qualifying data Historical No qualifying data Medications amLODIPine 5 mg Tab, 5 mg= 1 tab(s), Oral, Daily amLODIPine 5 mg Tab aspirin 81 mg Oral EC Tab cetirizine 10 mg Tab, 10 mg= 1 tab(s), Oral, Daily glimepiride 2 mg Tab lisinopril 10 mg Tab, 10 mg= 1 tab(s), Oral, Daily metformin 500 mg Tab omeprazole 20 mg Cap-DR, 20 mg= 1 cap(s) pramipexole 1 mg Tab Wixela Inhub 100 mcg-50 mcg inhalation powder Zetia 10 mg Tab Allergies No Known Medication Allergies Social History Tobacco - High Risk, 09/06/2022 10 or more cigarettes (1/2 pack or more)/day in last 30 days Tobacco Use:. Cigars, Yes, 12/16/2023 Family History CHF - Congestive heart failure: Mother. Brenda Gehrig's disease: Father. [1] CTA Chest; Edinson Staley MD 09/24/2022 10:[address] [facility] Comment on above: Result Comment: Elec tronically Signed By: Genevieve CURRIE, Tam Spain\.br\Date and Time Signed: 12/16/23 15:48 EDT Heart and Vascular Office/Cl inic Noteon 05-29-2023 Heart and Vascular Office/Clinic Note Chief Complaint 6 month f/y TAAA History of Present Illness Beth Starkey is an 83-year-old female with a history of CAD, remote PCI, hypertension, hyperlipidemia, and abdominal aortic aneurysm, here for routine follow-up. The patient reports that she is doing well. She has reached out to the [facility] and has been assigned a [...] However, during her recent visit to the [facility], she was informed that her [...] routine follow-up. She had an evaluation at [facility] for her aneurysm. She also got a CT angiogram with runoff. This showed the aneurysm is 5.9 cm by testing at [place], but measured 5.3 cm. As per patient at [facility], she has an occluded right [...] with voice recognition artificial intelligence software, specifically [employer], [employer] and or [email or web address]. Substitutions may have occurred with voice recognition and artificial intelligence software. Documentation services were performed after patient or guardian consented to allow [employer] to record this visit. SANTOS senior quality assurance specialist and provider reviewed before signing. SANTOS: [...] Known Medicat (more content not included)... Normal [facility] Comment on above: Result Comment: Elec tronically Signed By: Genevieve CURRIE, Sha Bustos\.br\Date and Time Signed: 05/29/23 20:33 EST\.br\Electronically Co-Signed By: Annmarie Mccray.br\Date and Time Co-Signed: 05/12/23 12:52 EST Physician Orderon 05-13-2023 Physician Order [id number] 5#1.00TIFF [facility] CNOVon 05-03-2023 CNOV Office Visit (VASSMN) BETH STARKEY ([id number]) 1940 F Date Time Provider Department 05/03/23 12:00 PM JENA HICKS During your visit today, we recorded the following information about you: Temperature Pulse Respiration Blood pressure 98.3 degrees 86/minute 16/minute 103/59 Weight Height 65.8 kg 1.524 m Jena Hicks MD 05/03/2023 3:31 PM Signed [facility] [place] DEPARTMENT OF VASCULAR SURGERY OUTPATIENT VISIT DATE [...] PHYSICAL E (more content not included)... Normal [facility] CTA ABD/PELV WO/W IVCONon CTA ABD/PELV WO/W IVCON * * *Final Report* * * DATE OF EXAM: May 03 2023 1:27PM [facility] - CTA ABD/PELV WO/W IVCON / [...] the esophagus. No ostial dilation/diverticulu m of [place]. Visceral Branch Vessels: patent with likely moderate [...] stable BONES: degenerative changes of the spine Transportation Economics Teacher (topogram) images: No additional findings. IMPRESSION: * [...] (more content not included)... Invalid Interpretation Code [facility] CTA CHEST (NONGATED) WO/W IV CONon 05-03-2023 CTA CHEST (NONGATED) WO/W IVCON * * *Final Report* * * DATE OF EXAM: May 03 2023 1:27PM [facility] - CTA CHEST (NONGATED) WO/W IVCON [...] stable BONES: degenerative changes of the spine Transportation Economics Teacher (topogram) images: No additional findings. IMPRESSION: * [...] (more content not included)... Invalid Interpretation Code [facility] HISTORY PHYSICALon HISTORY PHYSICAL HNO ID: [id number] Author: Jena Hicks MD Service: ? Author Type: Physician Type: HANDP Filed: 05/03/2023 3:31 PM Note Text: [facility] [place] DEPARTMENT OF VASCULAR SURGERY OUTPATIENT VISIT DATE [...] HEENT: EOM, pupils (more content not included)... [facility] 04-25-2023 CNPN Telephone (PODCCP) BETH STARKEY ([id number]) 1940 F Date Time Provider Department 04/25/23 NO PCP PODCCP During your visit today, we recorded the following information about you: Alondra Quiros 04/25/2023 4:23 PM Signed Reason for call: Ms Starkey called,and she would like to schedule an appointment with vascular surgery Referred by Dr Judit Tate Home and cell number: [phone] Diagnosis: AAA Kind Regards Alondra Allergies As of Date: 04/25/2023 (Not on File) Date Reviewed: Never Reviewed Reason for Visit: Appointment [186] Problem List As Of Date: 04/25/2023 (None) Encounter Status:Closed by ALONDRA QUIROS on 04/25/23 [facility] 04-22-2023 CNPN Telephone (REFPHY) BETH STARKEY ([id number]) 1940 F Date Time Provider Department 04/22/23 NO ONE (HISTORICAL) REFPHY During your visit today, we recorded the following information about you: Patrizia Orozco 04/22/2023 10:06 AM Signed Patient: Beth Starkey Date of : 1940 Patient phone number: [phone] Referring Provider for the encounter: Marck Tate MD Requesting Provider: N/A Reason for requesting visit (RFV/signs and symptoms/diagnosis): Sent Telephone Encounter - updated tracking. Person calling: caregiver: Patrizia Return call to: self Medical Records/Insurance Card scanned into [employer]: Yes Comments: N/A Allergies As of Date: 04/22/2023 (Not on File) Date Reviewed: Never Reviewed Reason for Visit: External Referrals/resources [909] Problem List As Of Date: 04/22/2023 (None) Encounter Status:Closed by PATRIZIA OROZCO on 04/22/23 Normal [facility] Outside Radiologyon 04-20-20 23 Outside Radiology [id number] #1.00TIFF Normal [facility] Consent for Treatmenton Consent for Treatment [id number] #1.00TIFF Normal [facility] Lab - Otheron 03-23-2023 Lab - Other [id number] 0#1.00TIFF Normal [facility] Physician Orderon 01-21-2023 Physician Order [id number] #1.00CD:[address] [facility] Consent for Treatmenton 08- Consent for Treatment [id number]# 1.00CD:[address] [facility] CHEMISTRYOrdered By: SYSTEM SYSTEM on 09-24-2022 Creatinine [Mass/Vol] 0.8 mg/dL Normal 0.5 - 1.3 mg/dL [facility] Remisol GFR/1.73 sq M.predicted among non-blacks MDRD (S/P/Bld) [Vol rate/Area] 74 mL/min/1.73 m2 Normal >=59mL/min/1. 73 m2 [facility] Chem S CT CHEST WO CONon 08-02-2022 CT CHEST [...] KAYY KAUR Date: 2022-08-02 10:52 Normal [facility] C. DIFF PCRon 07-28-2022 C. DIFFICILE PCR Negative Normal NEGATIVE [facility] Comment on above: Performed By: #### C DIFPOC #### [facility] [address] [place] [address] Dr. Spencer Braun OCC BLD IMMUNO SCREENon OCCULT BLOOD Negative Normal NEGATIVE [facility] Comment on above: Performed By: #### C BC #### [facility] [address] [place] [address] Dr. Spencer Braun INSULINon 07-15-2022 Insulin 17.7 uIU/mL Normal 2.6-24.9 [facility] Comment on above: Performed By: #### I NSULIN ####[facility] [address] [place] [address]Dr. Spencer Braun BNPon 07-14-2022 Natriuretic peptide B (Bld) [Mass/Vol] 197.0 pg/mL Normal <=1,800.0 [facility] Comment on above: Performed By: #### B RADIO AERIAL INSTALLER, LIPID, CMP, T7, TSH #### [facility] [address] [place] [address] Dr. Spencer Braun CBC AUTO DIFFon 07-14-2022 BASO # 0.1 103/ul Normal 0.0-0.1 [facility] Comment on above: Performed By: #### C BC #### [facility] [address] [place] [address] Dr. Spencer Braun Basophils/100 WBC (Bld) 0.9 % Normal 0.2-2.0 [facility] Comment on above: Performed By: #### C BC #### [facility] [address] [place] [address] Dr. Spencer Braun EO # 0.2 103/ul Normal 0.0-0.7 [facility] Comment on above: Performed By: #### C BC #### [facility] [address] [place] [address] Dr. Spencer Braun Eosinophils/100 WBC (Bld) 2.5 % Normal 0.9-7.0 [facility] Comment on above: Performed By: #### C BC #### [facility] [address] [place] [address] Dr. Spencer Braun Erythrocyte distribution width (RBC) [Ratio] 13.8 % Normal 11.0-15.0 [facility] Comment on above: Performed By: #### C BC #### [facility] [address] [place] [address] Dr. Spencer Braun Hematocrit (Bld) [Volume fraction] 45.1 % Normal 36.0-48.0 [facility] Comment on above: Performed By: #### C BC #### [facility] [address] [place] [address] Dr. Spencer Braun Hemoglobin (Bld) [Mass/Vol] 14.7 g/dL Normal 12.0-16.0 [facility] Comment on above: Performed By: #### C BC #### [facility] [address] [place] [address] Dr. Spencer Braun IG # 0.04 10e3/ul Critically high 0.00-0.03 [facility] Comment on above: Performed By: #### C BC #### [facility] [address] [place] [address] Dr. Spencer Braun IG % 0.5 % Normal 0.0-0.5 [facility] Comment on above: Performed By: #### C BC #### [facility] [address] [place] [address] Dr. Spencer Braun LYMPH # 1.6 103/ul Normal 1.2-3.8 [facility] Comment on above: Performed By: #### C BC #### [facility] [address] [place] [address] Dr. Spencer Braun Lymphocytes/100 WBC (Bld) 20.4 % Critically low 20.5-60.0 [facility] Comment on above: Performed By: #### C BC #### [facility] [address] [place] [address] Dr. Spencer Braun MANUAL DIFF REQ NO Normal [facility] Comment on above: Performed By: #### C BC #### [facility] [address] [place] [address] Dr. Spencer Braun MCH (RBC) [Entitic mass] 28.8 pg Normal 26.7-34.0 [facility] Comment on above: Performed By: #### C BC #### [facility] [address] [place] [address] Dr. Spencer Braun MCHC (RBC) [Mass/Vol] 32.6 g/dL Normal 29.9-35.2 [facility] Comment on above: Performed By: #### C BC #### [facility] [address] [place] [address] Dr. Spencer Braun MCV (RBC) [Entitic vol] 88.3 fL Normal 81.0-99.0 [facility] Comment on above: Performed By: #### C BC #### [facility] [address] [place] [address] Dr. Spencer Braun MONO # 0.5 103/ul Normal 0.3-0.8 [facility] Comment on above: Performed By: #### C BC #### [facility] [address] [place] [address] Dr. Spencer Braun Monocytes/100 WBC (Bld) 6.5 % Normal 1.7-12.0 [facility] Comment on above: Performed By: #### C BC #### [facility] [address] [place] [address] Dr. Spencer Braun NEUT # 5.4 103/ul Normal 1.4-6.5 [facility] Comment on above: Performed By: #### C BC #### [facility] [address] [place] [address] Dr. Spencer Braun Neutrophils/100 WBC (Bld) 69.2 % Normal 43.0-75.0 [facility] Comment on above: Performed By: #### C BC #### [facility] [address] [place] [address] Dr. Spencer Braun Platelet mean volume (Bld) [Entitic vol] 9.1 fL Critically low 9.5-13.5 [facility] Comment on above: Performed By: #### C BC #### [facility] [address] [place] [address] Dr. Spencer Braun PLT 190 103/ul Normal 150-450 [facility] Comment on above: Performed By: #### C BC #### [facility] [address] [place] [address] [address] Spencer Braun RBC 5.11 106/ul Normal 4.20-5.40 [facility] Comment on above: Performed By: #### C BC #### [facility] [address] [place] [address] [address] Spencer Braun WBC 7.7 103/ul Normal 4.0-11.0 [facility] Comment on above: Performed By: #### C BC #### [facility] [address] [place] [address] [address] Spencer Braun FREE THYROXINE INDEX T7on FTI 2.87 Normal 1.30-4.50 [facility] Comment on above: Performed By: #### B RADIO AERIAL INSTALLER, LIPID, CMP, T7, TSH ####[facility] [address] [place] [address]DrManish Braun T3U 33.0 % Normal 30.0-39.0 [facility] Comment on above: Performed By: #### B RADIO AERIAL INSTALLER, LIPID, CMP, T7, TSH ####[facility] [address] [place] [address]DrManish Braun T4 [Mass/Vol] 8.70 ug/dL Normal 4.80-13.90 [facility] Comment on above: Performed By: #### B RADIO AERIAL INSTALLER, LIPID, CMP, T7, TSH ####[facility] [address] [place] [address]DrManish Braun GLYCOHEMOGLOBIN A1Con 2022 ADA RECOMMENDATION SEE BELOW Normal [facility] Comment on above: Result Comment: ADA RECOMMENDED LIMIT 4.0 - 6.0 ADA THERAPEUTIC TARGET < 7.0 ACTION SUGGESTED > 7.0 Performed By: #### A 1C ####[facility] [address] [place] [address]DrManish Braun Glucose [Mass/Vol] 123 mg/dL Normal [facility] Comment on above: Performed By: #### A 1C ####[facility] [address] [place], [place] [address]ItManish Braun HbA1c (Bld) [Mass fraction] 5.9 % Normal 4.5-6.2 [facility] Comment on above: Performed By: #### A 1C ####[facility] [address] [place], [place] [address]WlManish Braun IRONon 07-14-2022 Iron [Mass/Vol] 70.0 ug/dL Normal 50.0-170.0 [facility] Comment on above: Performed By: #### V ITAD, IRON #### [facility] [address] [place], [place] [address] Dr. Spencer Braun LIPID PROFILEon 07-14-2022 CHOL-HDL RATIO NORM SEE BELOW Normal [facility] Comment on above: Result Comment: 3.3 - 4.4 LOW RISK 4.4 - 7.1 AVERAGE RISK 7.1 - 11.0 MODERATE RISK >11.0 HIGH RISK Performed By: #### B RADIO AERIAL INSTALLER, LIPID, CMP, T7, TSH ####[facility] [address] [place] [id number]. Spencer Braun Cholesterol [Mass/Vol] 180 mg/dL Normal <=200 [facility] Comment on above: Performed By: #### B RADIO AERIAL INSTALLER, LIPID, CMP, T7, TSH ####[facility] [address] [place], [place] [address]Te. Spencer Braun Cholesterol in HDL [Mass/Vol] 50 mg/dL Normal 40-60 [facility] Comment on above: Performed By: #### B RADIO AERIAL INSTALLER, LIPID, CMP, T7, TSH ####[facility] [address] [place] [id number]. Spencer Braun Cholesterol in LDL [Mass/Vol] 105.8 mg/dL Normal [facility] Comment on above: Performed By: #### B RADIO AERIAL INSTALLER, LIPID, CMP, T7, TSH ####[facility] [address] [place] [id number]. Spencer Braun Cholesterol.total/Cho lesterol in HDL [Mass ratio] 3.6 {ratio} Normal [facility] Comment on above: Performed By: #### B RADIO AERIAL INSTALLER, LIPID, CMP, T7, TSH ####[facility] [address] [place] [id number]. Spencer Braun HDL NORMAL > or = 60 mg/dl - LOW CARDIOVASCULAR RISK <40 mg/dl - HIGH CARDIOVASCULAR RISK Normal [facility] Comment on above: Performed By: #### B RADIO AERIAL INSTALLER, LIPID, CMP, T7, TSH ####[facility] [address] [place] [address]Dr. Spencer Braun LDL CALC NORMAL SEE BELOW Normal [facility] Comment on above: Result Comment: <100 mg/dl OPTIMAL 100 - 129 mg/dl NEAR OR ABOVE OPTIMAL 130 - 159 mg/dl BORDERLINE HIGH 160 - 189 mg/dl HIGH >190 mg/dl VERY HIGH Performed By: #### B RADIO AERIAL INSTALLER, LIPID, CMP, T7, TSH ####[facility] [address] [place] [id number]. Spencer Braun Triglyceride [Mass/Vol] 121 mg/dL Normal <=150 [facility] Comment on above: Performed By: #### B RADIO AERIAL INSTALLER, LIPID, CMP, T7, TSH ####[facility] [address] [place] [id number]. Spencer Braun VLDL CALC 24.2 mg/dL Normal [facility] Comment on above: Performed By: #### B RADIO AERIAL INSTALLER, LIPID, CMP, T7, TSH ####[facility] [address] [place] [id number] Braun PROF 14(COMP METB)on 023 Albumin [Mass/Vol] 3.8 g/dL Normal 3.4-5.0 [facility] Comment on above: Performed By: #### B RADIO AERIAL INSTALLER, LIPID, CMP, T7, TSH #### [facility] [address] [place] [address] [address] Spencer Braun Albumin/Globulin [Mass ratio] 1.0 {ratio} Normal [facility] Comment on above: Performed By: #### B RADIO AERIAL INSTALLER, LIPID, CMP, T7, TSH #### [facility] [address] [address] [address] Spencer Braun ALP [Catalytic activity/Vol] 135 U/L Critically high 46-116 [facility] Comment on above: Performed By: #### B RADIO AERIAL INSTALLER, LIPID, CMP, T7, TSH #### [facility] [address] [place] [address] Dr. Spencer Braun ALT [Catalytic activity/Vol] 20 U/L Normal 14-59 [facility] Comment on above: Performed By: #### B RADIO AERIAL INSTALLER, LIPID, CMP, T7, TSH #### [facility] [address] [place] [address] Dr. Spencer Braun Anion gap [Moles/Vol] 8.4 mmol/L Normal [facility] Comment on above: Performed By: #### B RADIO AERIAL INSTALLER, LIPID, CMP, T7, TSH #### [facility] [address] [place] [address] Dr. Spencer Braun AST [Catalytic activity/Vol] 14 U/L Critically low 15-37 [facility] Comment on above: Performed By: #### B RADIO AERIAL INSTALLER, LIPID, CMP, T7, TSH #### [facility] [address] [place] [address] Dr. Spencer Braun Bilirubin [Mass/Vol] 0.4 mg/dL Normal 0.2-1.0 [facility] Comment on above: Performed By: #### B RADIO AERIAL INSTALLER, LIPID, CMP, T7, TSH #### [facility] [address] [place] [address] Dr. Spencer Braun Calcium [Mass/Vol] 9.5 mg/dL Normal 8.5-10.1 [facility] Comment on above: Performed By: #### B RADIO AERIAL INSTALLER, LIPID, CMP, T7, TSH #### [facility] [address] [place] [address] Dr. Spencer Braun Chloride [Moles/Vol] 104 mmol/L Normal 98-107 [facility] Comment on above: Performed By: #### B RADIO AERIAL INSTALLER, LIPID, CMP, T7, TSH #### [facility] [address] [place] [address] Dr. Spencer Braun CO2 [Moles/Vol] 32.0 mmol/L Normal 21.0-32.0 [facility] Comment on above: Performed By: #### B RADIO AERIAL INSTALLER, LIPID, CMP, T7, TSH #### [facility] [address] [address] [address] Spencer Braun Creatinine [Mass/Vol] 0.72 mg/dL Normal 0.55-1.02 [facility] Comment on above: Performed By: #### B RADIO AERIAL INSTALLER, LIPID, CMP, T7, TSH #### [facility] [address] [place] [address] Dr. Spencer Braun EGFR-AF AUSTRIAN >60 Normal >=60 [facility] Comment on above: Performed By: #### B RADIO AERIAL INSTALLER, LIPID, CMP, T7, TSH #### [facility] [address] [place] [address] Dr. Spencer Braun EGFR-NON AF AUSTRIAN >60 Normal >=60 [facility] Comment on above: Performed By: #### B RADIO AERIAL INSTALLER, LIPID, CMP, T7, TSH #### [facility] [address] [place] [address] Dr. Spencer Braun Globulin (S) [Mass/Vol] 3.9 g/dL Normal [facility] Comment on above: Performed By: #### B RADIO AERIAL INSTALLER, LIPID, CMP, T7, TSH #### [facility] [address] [place] [address] Dr. Spencer Braun Glucose [Mass/Vol] 127 mg/dL Critically high 74-106 T [facility] Comment on above: Performed By: #### B RADIO AERIAL INSTALLER, LIPID, CMP, T7, TSH #### [facility] [address] [place] [address] Dr. Spencer Braun Potassium [Moles/Vol] 4.4 mmol/L Normal 3.5-5.1 [facility] Comment on above: Performed By: #### B RADIO AERIAL INSTALLER, LIPID, CMP, T7, TSH #### [facility] [address] [place] [address] Dr. Spencer Braun Protein [Mass/Vol] 7.7 g/dL Normal 6.4-8.2 [facility] Comment on above: Performed By: #### B RADIO AERIAL INSTALLER, LIPID, CMP, T7, TSH #### [facility] [address] [place] [address] Dr. Spencer Braun Sodium [Moles/Vol] 140 mmol/L Normal 136-145 [facility] Comment on above: Performed By: #### B RADIO AERIAL INSTALLER, LIPID, CMP, T7, TSH #### [facility] [address] [place] [address] Dr. Spencer Braun Urea nitrogen [Mass/Vol] 18.0 mg/dL Normal 7.0-18.0 [facility] Comment on above: Performed By: #### B RADIO AERIAL INSTALLER, LIPID, CMP, T7, TSH #### [facility] [address] [place] [address] Dr. Spencer Braun Urea nitrogen/Creatinine [Mass ratio] 25.0 mg/mg Normal [facility] Comment on above: Performed By: #### B RADIO AERIAL INSTALLER, LIPID, CMP, T7, TSH #### [facility] [address] [place] [address] Dr. Spencer Braun TSHon 07-14-2022 TSH 1.760 uIU/mL Normal 0.358-3.740 [facility] Comment on above: Performed By: #### B RADIO AERIAL INSTALLER, LIPID, CMP, T7, TSH #### [facility] [address] [place] [address] Dr. Spencer Braun VITAMIN D 25 OHon 07-14-2022 VIT D 25-OH 85.7 ng/mL Normal [facility] Comment on above: Performed By: #### V ITKINGS, IRON #### [facility] [address] [place] [address] Dr. Spencer Braun VIT D RANGES SEE BELOW Normal [facility] Comment on above: Result Comment: <20 ng/mL Vit D deficient 20 - <30 ng/mL Vit D insufficient 30 - 100 ng/mL Vit D sufficient >100 ng/mL Potential Toxicity Performed By: #### V ITAD, IRON #### [facility] [address] [place] [address] Dr. Spencer Braun CBC AUTO DIFFon 04-30-2022 BASO # 0.1 103/ul Normal 0.0-0.1 [facility] Comment on above: Performed By: #### C BC #### [facility] [address] [address] [address] Spencer Braun Basophils/100 WBC (Bld) 0.9 % Normal 0.2-2.0 [facility] Comment on above: Performed By: #### C BC #### [facility] [address] [address] [address] Spencer Braun EO # 0.2 103/ul Normal 0.0-0.7 [facility] Comment on above: Performed By: #### C BC #### [facility] [address] [address] [address] Spencer Braun Eosinophils/100 WBC (Bld) 2.1 % Normal 0.9-7.0 [facility] Comment on above: Performed By: #### C BC #### [facility] [address] [place] [address] Dr. Spencer Braun Erythrocyte distribution width (RBC) [Ratio] 13.9 % Normal 11.0-15.0 [facility] Comment on above: Performed By: #### C BC #### [facility] [address] [place] [address] Dr. Spencer Braun Hematocrit (Bld) [Volume fraction] 46.2 % Normal 36.0-48.0 [facility] Comment on above: Performed By: #### C BC #### [facility] [address] [place] [address] Dr. Spencer Braun Hemoglobin (Bld) [Mass/Vol] 15.1 g/dL Normal 12.0-16.0 [facility] Comment on above: Performed By: #### C BC #### [facility] [address] [place] [address] Dr. Spencer Braun IG # 0.05 10e3/ul Critically high 0.00-0.03 [facility] Comment on above: Performed By: #### C BC #### [facility] [address] [address] [address] Spencer Braun IG % 0.6 % Critically high 0.0-0.5 [facility] [place] [facility] Comment on above: Performed By: #### C BC #### [facility] [address] [place] [address] Dr. Spencer Braun LYMPH # 1.7 103/ul Normal 1.2-3.8 [facility] Comment on above: Performed By: #### C BC #### [facility] [address] [place] [address] Dr. Spencer Braun Lymphocytes/100 WBC (Bld) 20.3 % Critically low 20.5-60.0 [facility] Comment on above: Performed By: #### C BC #### [facility] [address] [place] [address] Dr. Spencer Braun MANUAL DIFF REQ NO Normal [facility] Comment on above: Performed By: #### C BC #### [facility] [address] [place] [address] Dr. Spencer Braun MCH (RBC) [Entitic mass] 28.8 pg Normal 26.7-34.0 [facility] Comment on above: Performed By: #### C BC #### [facility] [address] [place] [address] Dr. Spencer Braun MCHC (RBC) [Mass/Vol] 32.7 g/dL Normal 29.9-35.2 [facility] Comment on above: Performed By: #### C BC #### [facility] [address] [place] [address] Dr. Spencer Braun MCV (RBC) [Entitic vol] 88.2 fL Normal 81.0-99.0 [facility] Comment on above: Performed By: #### C BC #### [facility] [address] [place] [address] Dr. Spencer Braun MONO # 0.6 103/ul Normal 0.3-0.8 [facility] Comment on above: Performed By: #### C BC #### [facility] [address] [place] [address] Dr. Spencer Braun Monocytes/100 WBC (Bld) 7.1 % Normal 1.7-12.0 [facility] Comment on above: Performed By: #### C BC #### [facility] [address] [address] [address] Spencer Braun NEUT # 5.7 103/ul Normal 1.4-6.5 [facility] Comment on above: Performed By: #### C BC #### [facility] [address] [address] [address] Spencer Braun Neutrophils/100 WBC (Bld) 69.0 % Normal 43.0-75.0 [facility] Comment on above: Performed By: #### C BC #### [facility] [address] [address] [address] Spencer Braun Platelet mean volume (Bld) [Entitic vol] 9.2 fL Critically low 9.5-13.5 [facility] Comment on above: Performed By: #### C BC #### [facility] [address] [address] [address] Spencer Braun PLT 180 103/ul Normal 150-450 [facility] Comment on above: Performed By: #### C BC #### [facility] [address] [address] [address] Spencer Braun RBC 5.24 106/ul Normal 4.20-5.40 [facility] Comment on above: Performed By: #### C BC #### [facility] [address] [address] [address] Spencer Braun WBC 8.2 103/ul Normal 4.0-11.0 [facility] Comment on above: Performed By: #### C BC #### [facility] [address] [address] [address] Spencer Braun FREE T3on 04-30-2022 FREE T3 2.98 pg/mlL Normal 2.18-3.98 [facility] Comment on above: Performed By: #### L IPID, TSH, T4, FT3, CMP ####[facility] [address] [address]Dr. Spencer Braun GLYCOHEMOGLOBIN A1Con 2021 ADA RECOMMENDATION SEE BELOW Normal [facility] Comment on above: Result Comment: ADA RECOMMENDED LIMIT 4.0 - 6.0 ADA THERAPEUTIC TARGET < 7.0 ACTION SUGGESTED > 7.0 Performed By: #### A 1C ####[facility] [address] [id number] Spencer Braun Glucose [Mass/Vol] 134 mg/dL Normal [facility] Comment on above: Performed By: #### A 1C ####[facility] [address] [id number] Spencer Braun HbA1c (Bld) [Mass fraction] 6.3 % Critically high 4.5-6.2 [facility] Comment on above: Performed By: #### A 1C ####[facility] [address] [address]Dr. Spencer Braun LIPID PROFILEon 04-30-2022 CHOL-HDL RATIO NORM SEE BELOW Normal [facility] Comment on above: Result Comment: 3.3 - 4.4 LOW RISK 4.4 - 7.1 AVERAGE RISK 7.1 - 11.0 MODERATE RISK >11.0 HIGH RISK Performed By: #### L IPID, TSH, T4, FT3, CMP ####[facility] [address] [place], [place] [address]Dr. Spencer Braun Cholesterol [Mass/Vol] 177 mg/dL Normal <=200 [facility] Comment on above: Performed By: #### L IPID, TSH, T4, FT3, CMP ####[facility] [address] [id number] Spencer Braun Cholesterol in HDL [Mass/Vol] 56 mg/dL Normal 40-60 [facility] Comment on above: Performed By: #### L IPID, TSH, T4, FT3, CMP ####[facility] [address] [id number] Spencer Braun Cholesterol in LDL [Mass/Vol] 97.8 mg/dL Normal [facility] Comment on above: Performed By: #### L IPID, TSH, T4, FT3, CMP ####[facility] [address] [id number]. Spencer Braun Cholesterol.total/Cho lesterol in HDL [Mass ratio] 3.2 {ratio} Normal [facility] Comment on above: Performed By: #### L IPID, TSH, T4, FT3, CMP ####[facility] [address] [address]Dr. Spencer Braun HDL NORMAL > or = 60 mg/dl - LOW CARDIOVASCULAR RISK <40 mg/dl - HIGH CARDIOVASCULAR RISK Normal [facility] Comment on above: Performed By: #### L IPID, TSH, T4, FT3, CMP ####[facility] [address] [address]Dr. Spencer Braun LDL CALC NORMAL SEE BELOW Normal [facility] Comment on above: Result Comment: <100 mg/dl OPTIMAL 100 - 129 mg/dl NEAR OR ABOVE OPTIMAL 130 - 159 mg/dl BORDERLINE HIGH 160 - 189 mg/dl HIGH >190 mg/dl VERY HIGH Performed By: #### L IPID, TSH, T4, FT3, CMP ####[facility] [address] [place], [place] [address]Dr. Spencer Braun Triglyceride [Mass/Vol] 116 mg/dL Normal <=150 [facility] Comment on above: Performed By: #### L IPID, TSH, T4, FT3, CMP ####[facility] [address] [place], [place] [address]Dr. Spencer Braun VLDL CALC 23.2 mg/dL Normal [facility] Comment on above: Performed By: #### L IPID, TSH, T4, FT3, CMP ####[facility] [address] [address]Dr. Spencer Braun PROF 14(COMP METB)on 022 Albumin [Mass/Vol] 3.8 g/dL Normal 3.4-5.0 [facility] Comment on above: Performed By: #### L IPID, TSH, T4, FT3, CMP ####[facility] [address] [address]Dr. Spencer Braun Albumin/Globulin [Mass ratio] 0.9 {ratio} Normal [facility] Comment on above: Performed By: #### L IPID, TSH, T4, FT3, CMP ####[facility] [address] [address]Dr. Spencer Braun ALP [Catalytic activity/Vol] 143 U/L Critically high 46-116 [facility] Comment on above: Performed By: #### L IPID, TSH, T4, FT3, CMP ####[facility] [address] [address]Dr. Spencer Braun ALT [Catalytic activity/Vol] 19 U/L Normal 14-59 [facility] Comment on above: Performed By: #### L IPID, TSH, T4, FT3, CMP ####[facility] [address] [address]Dr. Spencer Braun Anion gap [Moles/Vol] 12.1 mmol/L Normal [facility] Comment on above: Performed By: #### L IPID, TSH, T4, FT3, CMP ####[facility] [address] [place], [place] [address]Dr. Spencer Braun AST [Catalytic activity/Vol] 17 U/L Normal 15-37 [facility] Comment on above: Performed By: #### L IPID, TSH, T4, FT3, CMP ####[facility] [address] [place], [place] [address]Dr. Spencer Braun Bilirubin [Mass/Vol] 0.3 mg/dL Normal 0.2-1.0 [facility] Comment on above: Performed By: #### L IPID, TSH, T4, FT3, CMP ####[facility] [address] [place], [place] [address]Dr. Spencer Braun Calcium [Mass/Vol] 9.5 mg/dL Normal 8.5-10.1 [facility] Comment on above: Performed By: #### L IPID, TSH, T4, FT3, CMP ####[facility] [address] [place], [place] [address]Dr. Spencer Braun Chloride [Moles/Vol] 102 mmol/L Normal 98-107 [facility] Comment on above: Performed By: #### L IPID, TSH, T4, FT3, CMP ####[facility] [address] [address]Dr. Spencer Braun CO2 [Moles/Vol] 32.6 mmol/L Critically high 21.0-32.0 [facility] Comment on above: Performed By: #### L IPID, TSH, T4, FT3, CMP ####[facility] [address] [place], [place] [address]Dr. Spencer Braun Creatinine [Mass/Vol] 0.69 mg/dL Normal 0.55-1.02 [facility] Comment on above: Performed By: #### L IPID, TSH, T4, FT3, CMP ####[facility] [address] [place], [place] [address]Dr. Maemarek Kade EGFR-AF AUSTRIAN >60 Normal >=60 [facility] Comment on above: Performed By: #### L IPID, TSH, T4, FT3, CMP ####[facility] [address] [place], [place] [address]Dr. Spencer Braun EGFR-NON AF AUSTRIAN >60 Normal >=60 [facility] Comment on above: Performed By: #### L IPID, TSH, T4, FT3, CMP ####[facility] [address] [place], [place] [address]Dr. Maemarek Kade Globulin (S) [Mass/Vol] 4.1 g/dL Normal [facility] Comment on above: Performed By: #### L IPID, TSH, T4, FT3, CMP ####[facility] [address] [place], [place] [address]Dr. Maemarek Kade Glucose [Mass/Vol] 108 mg/dL Critically high 74-106 T [facility] Comment on above: Performed By: #### L IPID, TSH, T4, FT3, CMP ####[facility] [address] [place], [place] [address]Dr. Spencer Braun Potassium [Moles/Vol] 4.7 mmol/L Normal 3.5-5.1 [facility] Comment on above: Performed By: #### L IPID, TSH, T4, FT3, CMP ####[facility] [address] [place], [place] [address]Dr. Spencer Braun Protein [Mass/Vol] 7.9 g/dL Normal 6.4-8.2 [facility] Comment on above: Performed By: #### L IPID, TSH, T4, FT3, CMP ####[facility] [address] [address]Dr. Spencer Braun Sodium [Moles/Vol] 142 mmol/L Normal 136-145 [facility] Comment on above: Performed By: #### L IPID, TSH, T4, FT3, CMP ####[facility] [address] [address]Dr. Spencer Braun Urea nitrogen [Mass/Vol] 19.0 mg/dL Critically high 7.0-18.0 [facility] Comment on above: Performed By: #### L IPID, TSH, T4, FT3, CMP ####[facility] [address] [place], [place] [address]Dr. Spencer Braun Urea nitrogen/Creatinine [Mass ratio] 27.5 mg/mg Normal [facility] Comment on above: Performed By: #### L IPID, TSH, T4, FT3, CMP ####[facility] [address] [address]Dr. Spencer Braun T4on 04-30-2022 T4 [Mass/Vol] 8.30 ug/dL Normal 4.80-13.90 [facility] Comment on above: Performed By: #### L IPID, TSH, T4, FT3, CMP ####[facility] [address] [place], [place] [address]Dr. Spencer Braun TSHon 04-30-2022 TSH 1.777 uIU/mL Normal 0.358-3.740 [facility] Comment on above: Performed By: #### L IPID, TSH, T4, FT3, CMP ####[facility] [address] [place], [place] [address]Dr. Spencer Braun VITAMIN D 25 OHon 04-30-2022 VIT D 25-OH 72.1 ng/mL Normal [facility] Comment on above: Performed By: #### V ITAD #### [facility] [address] [place], [place] [address] Dr. Spencer Braun VIT D RANGES SEE BELOW Normal [facility] Comment on above: Result Comment: <20 ng/mL Vit D deficient 20 - <30 ng/mL Vit D insufficient 30 - 100 ng/mL Vit D sufficient >100 ng/mL Potential Toxicity Performed By: #### V ITAD #### [facility] [address] [place], [place] [address] Dr. Spencer Braun MG MAMM SCREEN 3D AWAIS CADon 02-16-2022 MG MAMM SCREEN 3D AWAIS CAD Patient: BETH STARKEY Exam Date: 02/16/2022 : 1940 Gender:F Ordering : DR MARCK TATE . Admission #: [id number] Family : Order #: [id number] CLICK HERE TO VIEW EXAM RADIOLOGY REPORT [...] prostate cancer at age 71. LOCATION: [facility] BREAST COMPOSITION: Heterogeneously dense,which may obscure [...] Encarnacion MD on 02/17/2022 at 07:39 Normal [facility] Vital Signs Date Time Vital Sign Value Performing Clinician Tony jamesendy 12-16-2023 15:18-0400 Diastolic blood pressure 68 mm[Hg] Tam Martíneznus [facility] 12-16-2023 15:18-0400 Systolic blood pressure 118 mm[Hg] Tam Martíneznus [facility] 05-12-2023 10:13-0500 Diastolic blood pressure 72 mm[Hg] Sha Barrerasilke [facility] 05-12-2023 10:13-0500 Heart rate 94 /min Sha Vallejo [facility] 05-12-2023 10:13-0500 SaO2% (BldA) [Mass fraction] 90 % Sha Vallejo [facility] 05-12-2023 10:13-0500 Systolic blood pressure 130 mm[Hg] Sha Barrerasilke [facility] 05-03-2023 12:24-0500 Diastolic blood pressure 59 mm[Hg] Jena Hicks MD Work Phone: [facility] 05-03-2023 12:24-0500 Heart rate 86 /min Jena Hicks MD Work Phone: [facility] 05-03-2023 12:24-0500 Systolic blood pressure 103 mm[Hg] Jena Hicks MD Work Phone: [facility] 05-03-2023 12:14-0500 Body height 152.4 cm Jena Hicks MD Work Phone: [facility] 05-03-2023 12:14-0500 Body temperature 98.29 [degF] Jena Hicks MD Work Phone: [facility] 05-03-2023 12:14-0500 Body weight 65.82 kg Jena Hicks MD Work Phone: [facility] 05-03-2023 12:14-0500 Respiratory rate 16 /min Jena Hicks MD Work Phone: [facility] 05-03-2023 12:14-0500 SaO2% (BldA) [Mass fraction] 93 % Jena Hicks MD Work Phone: [facility] 09-06-2022 09:39-0400 Blood Pressure Location Dayron Jorgensen [facility] 09-06-2022 09:39-0400 Diastolic blood pressure 81 mm[Hg] [facility] 09-06-2022 09:39-0400 Heart rate 103 /min Dayron Jorgensen [facility] 09-06-2022 09:39-0400 SaO2% (BldA) [Mass fraction] 90 % [facility] 09-06-2022 09:39-0400 Systolic blood pressure 126 mm[Hg] [facility] Encounters Encounter Date Encounter Type Care Provider Facility Start: 12-16-2023 End: 12-17-2023 Pre-admission assessment Tam Vallejo [facility] Start: 12-16-2023 End: 12-16-2023 ambulatory MD Tam Vallejo Facility[place] Start: 11-09-2023 End: 11-09-2023 ambulatory FORREST MARTIN Not Available Start: 05-30-2023 End: 05-30-2023 ambulatory FORREST MARTIN Not Available Start: 05-12-2023 End: 05-12-2023 ambulatory Sha Vallejo Facility:[facility] Start: 05-12-2023 End: 05-12-2023 Patient encounter procedure Sha Vallejo [facility] Start: 05-04-2023 Orders Only Jena Hicks MD Work Phone: Vascular Surg Dept Comment on above: 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); Bilateral carotid artery stenosis; Other disorders of arteries, arterioles and capillaries in diseases classified elsewhere (HCC) Start: 05-03-2023 End: 05-03-2023 ambulatory JENA HICKS Facility:[facility] Start: 05-03-2023 End: 05-03-2023 Office outpatient visit 25 minutes Jena Hicks MD Work Phone: Vascular Surg Dept Comment on above: 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) Start: 04-26-2023 Orders Only Jena Hicks MD Work Phone: Vascular Surg Dept Comment on above: Chest pain, unspecif ied type (Primary Dx) Start: 04-25-2023 Telephone encounter No Pcp [employer]INTE[employer] NOC Comment on above: Appointment Start: 04-22-2023 Telephone encounter No One (Historic al) Referring Physician Comment on above: External Referrals/r esources Start: 04-20-2023 End: 04-20-2023 ambulatory FORREST SALAZAR Not Available Start: 03-23-2023 End: 03-23-2023 ambulatory Sha Vallejo Facility[place] Start: 03-23-2023 End: 03-23-2023 Patient encounter procedure Sha Vallejo [facility] Start: 01-20-2023 End: 01-20-2023 ambulatory Sha Vallejo Facility:[facility] Start: 01-20-2023 End: 01-20-2023 Patient encounter procedure Sha Vallejo [facility] Start: 09-24-2022 End: 09-24-2022 Patient encounter procedure Dayron Jorgensen [facility] Start: 09-06-2022 End: 09-06-2022 Patient encounter procedure Dayron Jorgensen [facility] Start: 08-02-2022 End: 08-03-[address] MARCK TATE . Facility:[facility] Start: 07-28-2022 End: 07-28-[address] MARCK TATE . Facility:[facility] Start: 07-14-2022 End: 07-15-[address] MARCK TATE . Facility:[facility] Start: 04-30-2022 End: 05-01-[address] MARCK TATE . Facility:[facility] Start: 02-16-2022 End: 02-17-[address] MARCK TATE . Facility:[facility] Start: 06-17-2017 End: 06-18-2017 Ambulatory DEFAULT PHYSICIAN Facility:[facility] Plan of Treatment Date Care Activity Detail Author Start: 07-04-2029 Urine microalbumin profile DTaP,Tdap,Td Vaccine (2 - Td or Tdap) [facility] Start: 01-21-2023 Influenza vaccination Influenza Vacc ine (#1) [facility] Start: 05-23-2022 Advance Directive Discussion Advance Directive Discussion [facility] Start: 05-23-2022 Depression Assessment Depression Ass essment [facility] Start: 05-18-2017 Pneumococcal Vaccine : 65+ (2 - PPSV23 or PCV20) Pneumococcal Vaccine: 65+ (2 - PPSV23 or PCV20) [facility] Start: 2006 Bone Density Screening Bone Density Screening [facility] Start: 2006 Pneumococcal Vaccine : 65+ (1 - PCV) Pneumococcal Vaccine: 65+ (1 - PCV) [facility] Start: 2006 Screening for osteoporosis Bone Density Screening [facility] Start: 2001 RSV Vaccine (1 - 1-d ose 60+ series) RSV Vaccine (1 - 1-dose 60+ series) [facility] Start: 1991 Shingrix Vaccine (1 of 2) Shingrix Vaccine (1 of 2) [facility] Start: 1986 Diabetes Screening Diabetes Screenin g [facility] Start: 1941 Covid-19 Vaccine (#1) Covid-19 Vacci ne (#1) [facility] End: 05-25-2024 Ct angio abd&plvis cntrst mtrl w/wo cntrst img CTA ABD/PEL WO/W IVCON Radiology Routine Chest pain, unspecified type 1 Occurrences starting 04/26/2023 until 05/25/2024 [facility] Work Phone: Comment on above: 1 Occurrences starti ng 04/26/2023 until 05/25/2024 End: 06-02-2024 Ct angio abd&plvis cntrst mtrl w/wo cntrst img CTA ABD/PEL WO/W IVCON Radiology Routine 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 Occurrences starting 05/04/2023 until 06/02/2024 [facility] Work Phone: Comment on above: 1 Occurrences starti ng 05/04/2023 until 06/02/2024 End: 05-25-2024 Ct angiography chest w/contrast/noncontrast CTA CHEST (NONGATED) WO/W IVCON Radiology Routine Chest pain, unspecified type 1 Occurrences starting 04/26/2023 until 05/25/2024 [facility] Work Phone: Comment on above: 1 Occurrences starti ng 04/26/2023 until 05/25/2024 End: 06-02-2024 Ct angiography chest w/contrast/noncontrast CTA CHEST (NONGATED) WO/W IVCON Radiology Routine 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 Occurrences starting 05/04/2023 until 06/02/2024 [facility] Work Phone: Comment on above: 1 Occurrences starti ng 05/04/2023 until 06/02/2024 End: 05-04-2024 PVR ANK/HILL/TOE AWAIS VAS LAB PVR ANK/HILL/TOE AWAIS VAS LAB Vascular Lab Routine 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) Other disorders of arteries, arterioles and capillaries in diseases classified elsewhere (HCC) 1 Occurrences starting 05/04/2023 until 05/04/2024 [facility] Work Phone: Comment on above: 1 Occurrences starti ng 05/04/2023 until 05/04/2024 End: 05-04-2024 US CAROTID ARTERIES AWAIS VAS LAB US CAROTID ARTERIES AWAIS VAS LAB Vascular Lab Routine Bilateral carotid artery stenosis 1 Occurrences starting 05/04/2023 until 05/04/2024 [facility] Work Phone: Comment on above: 1 Occurrences starti ng 05/04/2023 until 05/04/2024 [facility] Payers Date Payer Category Payer [employer] ([employer] and others) [id number] 2006 Medicare MEDICARE MEDICAR E A AND B [id number] 2006-Present [phone] [place] [address] Medicare [id number] 1959 [employer] ([place] and others) [id number] 1959 Medicare [id number] 1940 Unknown [id number]. 2.593 1941 Unknown [id number] [id number]. 2.593 1941 Unknown [id number] 2.16.840.1.717878.3.579. 2.593 1941 Unknown [id number] 2.16.840.1.072315.3.579. 2.593 1941 Unknown [id number] 2.16.840.1.065252.3.579. 2.593 1941 Unknown [id number] 2.16.840.1.108480.3.579. 2.1259 1941 Unknown [id number] 2.16.840.1.317766.3.579. 2.1259 1941 Unknown [id number] 2.16.840.1.122855.3.579. 2.1259 1941 Unknown [id number] 2.16.840.1.111164.3.579. 2.727 1941 Unknown [id number] 2.16.840.1.040396.3.579. 2.727 1941 Unknown [id number] 2.16.840.1.891931.3.579. 2.727 1941 Unknown [id number] [id number]. 2.727 Unknown Social History Date Type Detail Facility Start: 09-06-2022 End: 12-16-2023 Tobacco smoking status Heavy tobacco smoker (finding) [facility] Start: 05-03-2023 Sex Assigned At Female F [facility] Tobacco smoking stat [facility] Tobacco smoking consumption unknown [facility] Start: 1940 Sex Assigned At Not on file [facility] Start: 05-23-1956 Tobacco smoking stat [facility] Smokes tobacco daily [facility] Start: 05-23-1956 History of tobacco use Cigarette Smo ker [facility] Start: 05-03-2023 Cigarettes smoked current (pack per day) - Reported 1.5 [facility] Start: 05-03-2023 Tobacco use and exposure Smokeless tobacco non-user [facility] Start: 05-03-2023 Alcohol intake Current drinke r of alcohol (finding) [facility] National Score (1-10 0), lower number is lower risk 87 [facility] Start: 05-03-2023 Alcohol Comment football season [facility] Functional Status Date Assessment Result Facility 12-16-2023 Functional Status N/A [facility] 05-12-2023 Functional Status N/A [facility] 09-06-2022 Functional Status No [facility] Clinical Notes 03-21-2023 to 05-26-2023 Jena Hicks MD - 05/03/2023 12:42 PM ESTTelephone Encounter - Alondra Quiros - 04/25/2023 4:18 PM ESTTelephone Encounter - Patrizia Orozco - 04/22/2023 10:05 AM ESTRadiologyRadiology Note Date & Type Note Facility 05-26-2023 Note Patient Outreach ([facility]) BETH STARKEY ([id number]) 1940 F Date Time Provider Department 05/26/23 [...] and brochure sent Lung Nodule Program Location: [facility] As of Date: 05/26/2023 (No Known [...] Encounter Status:Closed by EVANGELINA BURNETT on 05/26/23 [facility] 05-26-2023 Note HNO ID: [id number] Author: ?, ?, ? Service: ? Author [...] and brochure sent Lung Nodule Program Location: [facility] 05-18-2023 Note Patient Outreach ([facility]) BETH STARKEY ([id number]) 1940 F Date Time Provider Department 05/18/23 CROW BELLO [facility] During your visit today, we recorded the following information about you: Crow Bello APRN.PNEUMATIC TUBE FITTER 05/18/2023 11:12 AM Signed Incidental Lung Nodule Enrollment Outreach attempt: 1st Attempt Outreach status: Complete Enrolled in Lung Nodule program: Referred Lung Nodule outreach: No outreach - Very small nodule, letter and brochure sent Lung Nodule Program Location: [facility] As of Date: 05/18/2023 (No Known [...] Encounter Status:Closed by CROW BELLO on 05/18/23 [facility] 05-18-2023 Note HNO ID: [id number] Author: Crow Bello, CHELSEA.PNEUMATIC TUBE FITTER Service: ? Author Type: Nurse Practitioner Type: Progress Notes Filed: 05/18/2023 11:12 AM Note Text: Incidental Lung Nodule Enrollment Outreach attempt: 1st Attempt Outreach status: Complete Enrolled in Lung Nodule program: Referred Lung Nodule outreach: No outreach - Very small nodule, letter and brochure sent Lung Nodule Program Location: [facility] 05-03-2023 Note HNO ID: [id number] Author: Nadine Cummins RN Service: Radiology Author [...] DATE: May 03, 2023 TIME: 1:00 PM [facility] 05-03-2023 Note HNO ID: [id number] Author: Kandy Aragon RT(R) Service: Radiology Author [...] RT Tess(R) May 03, 2023 1:19 PM [facility] 05-03-2023 History and physical note Heart , Vascular and Thoracic [place] DEPARTMENT OF VASCULAR SURGERY OUTPATIENT VISIT DATE [...] 4 - Moderate documented in this encounter [facility] 04-25-2023 Miscellaneous Notes Reason for call: Ms Starkey called,and she would like to schedule an appointment with vascular surgery Referred by Dr Judit [facility] and cell number: [phone] Diagnosis: AAA Kind Regards Alondra documented in this encounter [facility] 04-22-2023 Miscellaneous Notes Patient: Beth Starkey Date of : 1940 Patient phone number: [phone] Referring Provider for the encounter: Marck Tate MD Requesting Provider: N/A Reason for requesting visit (RFV/signs and symptoms/diagnosis): Sent Telephone Encounter - updated tracking. Person calling: caregiver: Patrizia Return call to: self Medical Records/Insurance Card scanned into [employer]: Yes Comments: N/A documented in this encounter [facility] 03-23-2023 Evaluation + Plan note Diagnostic Tests PendingCreatinine 03/23/23 Future Scheduled TestsCTA Abd Aorto-bilat/ iliofemoral runoff 03/22/23 [facility] 03-22-2023 Evaluation + Plan note Future Scheduled TestsCTA Abd Aorto-bilat/ iliofemoral runoff 03/22/23 [facility] 03-21-2023 Note History of Present I [...] 6 cm. 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 She denies chest pain or dyspnea. She does have some dyspnea on exertion. Beth Starkey has a history of 2 stents placed in her heart by Dr. [place] at [place]. Review of Systems Constitutional: no fever, no [...] with voice recognition artificial intelligence software, specifically [employer], [employer] and or [email or web address]. Substitutions may have occurred with voice recognition and artificial intelligence software. ATTESTATION: Documentation services were performed after patient or guardian consented to allow [facility] to record this visit. SANTOS senior quality assurance specialist and provider reviewed before signing. SANTOS: [...] heart failure: Mother. Brenda Gehrig's disease: Father. [facility] Comment on above: Result Comment: Elec tronically Signed By: Genevieve CURRIE, Sha Bustos\.br\Date and Time Signed: 03/21/23 11:20 EDT\.br\Electronically Co-Signed By: Beth Sanders\.br\Date and Time Co-Signed: 01/20/23 12:18 EDT Evaluation + Plan note Future Appointments Appointment Date:10/11/2022 10:00:00 AM Scheduled Provider:Dayron Jorgensen MD Location[facility] Appointment Type:Vascular Follow Up ([facility]) Future Scheduled TestsCTA Abdomen and Pelvis 09/06/22CTA Chest 09/06/22 [facility] Evaluation + Plan note Future Appointments Appointment Date:10/11/2022 10:00:00 AM Scheduled Provider:Dayron Jorgensen MD [facility] Appointment Type:Vascular Follow Up ([facility]) [facility] Evaluation + Plan note Future Scheduled TestsCTA Abd Aorto-bilat/ iliofemoral runoff 03/22/23 [facility] Evaluation + Plan note Future Appointments Appointment Date:06/18/2024 09:45:00 AM Scheduled Provider:Tam Vallejo MD [facility] [place] Appoint[facility] Type:Cardiology Follow Up ([facility]) Future Scheduled TestsCTA Abd Aorto-bilat/ iliofemoral runoff 03/22/23 [facility] Evaluation note Diagnosis Chest pain, unspecified type- Primary [facility] Diagnosis 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 [facility] in this [facility] [place] [facility]* Diagnosis 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 Bilateral carotid artery stenosis Occlusion and stenosis of carotid artery without mention of cerebral infarction Other disorders of arteries, arterioles and capillaries in diseases classified elsewhere (HCC) [facility] Narrative No data available for this section [facility] Discharge instructions No data available for this section [facility] No data available for this section [facility] (narrative)* Outpatient Procedure (Routine) - Authorized Specialty Diagnoses / Procedures Referred By Contac t Referred [facility] Diagnoses 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) Other disorders of arteries, arterioles and capillaries in diseases classified elsewhere (HCC) Procedures PVR ANK/HILL/TOE AWAIS VAS LAB NON-INVAS PHYSIOLOGIC STD EXTREMITY ART 2 LEVEL Jena Hicks MD [address] [place] [address] [facility] [address] Referral ID Status Reason Start Date Expiration Date Visits Requested Visits Authorized [id number] Authorized Auto-Generat ed Referral 3 05/03/2024 1 1 * MRI/CT (Routine) - Authorized Specialty Diagnoses / Procedures Referred By Contac t Referred To Contact CT IMAGING Diagnoses 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) Procedures CTA ABD/PEL WO/W IVCON CT ANGIO ABD&PLVIS CNTRST MTRL W/WO CNTRST Jena Todd MD [address] [place] [address] [address] [facility] [place] [address] Referral ID Status Reason Start Date Expiration Date Visits Requested Visits Authorized [id number] Authorized Auto-Generat ed Referral 3 06/02/2024 1 1 * MRI/CT (Routine) - Authorized Specialty Diagnoses / Procedures [facility] Ref[facility] To Contact CT IMAGING Diagnoses 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) Procedures CTA CHEST (NONGATED) WO/W IVCON CT ANGIOGRAPHY CHEST W/CONTRAST/NONCONTRAST Jena Hicks MD [address] [place] [address] Ct [facility] [place] [address] Referral ID Status Reason Start Date Expiration Date Visits Requested Visits Authorized [id number] Authorized Auto-Generat ed Referral 3 06/02/2024 1 1 * Outpatient Procedure (Routine) - Authorized Specialty Diagnoses / Procedures [facility] Referred To Contact [facility] [place] Diagnoses Bilateral carotid artery stenosis Procedures US CAROTID ARTERIES AWAIS VAS LAB DUPLEX SCAN EXTRACRANIAL ART COMPL BI STUDY Jena Hicks MD [address] [place] [address] [place] [address] Referral ID Status Reason Start Date Expiration Date Visits Requested Visits Authorized [id number] Authorized Auto-Generat ed Referral 3 05/03/2024 1 1 [facility] Summary Purpose Family History No Family History Records FoundNo Family History Records Found No data available for this section No data available for this section No Family History Records FoundNo Family History Records Found No data available for this section No Family History Records Found Advance Directives No Advanced Directives Records FoundNo Advanced Directives Records FoundNo Advanced Directives Records FoundNo Advanced Directives Records FoundNo Advanced Directives Records Found Reason for Referral Specialty Diagnoses / Procedures Referred By Manjula t Referred To Contact CT IMAGING Diagnoses Chest pain, unspecified type Procedures CTA ABD/PEL WO/W IVCON CT ANGIO ABD&PLVIS CNTRST MTRL W/WO CNTRST Jena Todd MD [address] [place] [place] [address] Ct [facility] [place] [address] Referral ID Status Reason Start Date Expiration Date Visits Requested Visits Authorized [id number] Authorized Auto-Generat ed Referral 04/26/2023 05/25/2024 1 1 Specialty Diagnoses / Procedures Referred By Contac t Referred To Contact CT IMAGING Diagnoses Chest pain, unspecified type Procedures CTA CHEST (NONGATED) WO/W IVCON CT ANGIOGRAPHY CHEST W/CONTRAST/NONCONTRAST Jena Hicks MD [address] [place] [address] Ct [facility] [place] [address] Referral ID Status Reason Start Date Expiration Date Visits Requested Visits Authorized [id number] Authorized Auto-Generat ed Referral 04/26/2023 05/25/2024 1 1 Additional Source Comments INFORMATION SOURCE (unrecogn ized section and content) DATE CREATED AUTHOR 11/14/2017 [facility] DATE CREATED AUTHOR AUTHOR'S ORGANIZ ATION 08/09/2022 [facility] DATE CREATED AUTHOR AUTHOR'S ORGANIZ ATION 05/27/2023 [facility] DATE CREATED AUTHOR AUTHOR'S ORGANIZ ATION 11/11/2023 [facility] DATE CREATED AUTHOR AUTHOR'S ORGANIZ ATION 12/29/2023 [facility] Patient Care team informatio n (unrecognized section and content) [employer] Relationship Specialty Start Date End Date Marck Tate MD [address] [place] [address] Family [facility] 04/22/23 [employer] Relationship Specialty Start Date End Date Marck Tate MD [address] [place] [address] Family Medicine 04/22/23 [employer] Relationship Specialty Start Date End Date Marck Tate MD [address] [place] [address] Family Medicine 04/22/23 [employer] Relationship Specialty Start Date End Date Marck Tate MD [address] [facility] [place] [address] Family Medicine 04/22/23 Source Comments (unrecognize d section and content) In the event this informatio n is protected by the Federal Confidentiality of Alcohol and Drug Abuse Patient Records regulations: The Federal rules restrict any use of the information to criminally investigate or prosecute any alcohol or drug abuse patient.[facility] the event this information is protected by the Federal Confidentiality of Alcohol and Drug Abuse Patient Records regulations: The Federal rules restrict any use of the information to criminally investigate or prosecute any alcohol or drug abuse patient.[facility] HospitalIn the event this information is protected by the Federal Confidentiality of Alcohol and Drug Abuse Patient Records regulations: The Federal rules restrict any use of the information to criminally investigate or prosecute any alcohol or drug abuse patient.[facility] the event this information is protected by the Federal Confidentiality of Alcohol and Drug Abuse Patient Records regulations: The Federal rules restrict any use of the information to criminally investigate or prosecute any alcohol or drug abuse patient.[facility] HospitalIn the event this information is protected by the Federal Confidentiality of Alcohol and Drug Abuse Patient Records regulations: The Federal rules restrict any use of the information to criminally investigate or prosecute any alcohol or drug abuse patient.[facility] Reason for Visit (unrecogniz ed [...] BE BASED ON THE PRIMARY CLINICAL RECORDS. [facility] [employer] [facility]. provides no warranty or guarantee of the accuracy or completeness of information in this document.
--- NOTE | 2024-01-02 10:39 | PC.NURSE ---
Nursing Note Cardiac Stress Test Reviewed: Medication, allergies and patient history reviewed. Stress Test: [ ] Patient tolerated stress test well. [ ] Patient unable to tolerate walking on treadmill. Switched to Lexiscan stress test. [ ] No chest pain noted per patient [ ] Chest pain that resolved prior to leaving stress lab. [ ] No dyspnea noted. [ ] Dyspnea that resolved prior to leaving stress lab. [ ] Patient left stress lab asymptomatic and hemodynamically stable. [ ] Patient taken to the Emergency Room due to non-resolving symptoms following stress test. [ ] Patient achieved target heart rate. [ ] Patient unable to achieve target heart rate. [ ] Aminophylline administered as reversal agent to Lexiscan (Regadenoson). [ ] Nitro administered. Nursing Comments: Patient unable to walk on treadmill, she was short of breath walking from waiting room to nuclear medicine and to the lobby for the stress test. Unable to switch patient to a lexiscan due to audible wheezes. This RN could hear patient wheeze with out stethoscope upon entering the room. Spoke with Dr. Atwood who was uncomfortable with us administering lexiscan until the patient was seen for her lung issues. Spoke with patient about reason for cancelling the test and potential problems if we were to do so with out further investigation of her lungs. Patient verbalized understanding. This Rn called and updated patient's PCP Dr. Tate's office and Dr. Contreras the ordering media relations intern. Also reached out to Dr. Germain's office per pt request to establish care due to patient report of a lung nodule as well. Waiting to hear back from his office for patient appointment.
== END 2024-01-02 08:33 | disposition home or self-care (01) ==
LOC: NM 08:33
PROVIDERS: PCP Family Medicine
DX: I25.10 Atherosclerotic heart disease of native coronary artery without angina pectoris (principal); I10 Essential (primary) hypertension; I71.40 Abdominal aortic aneurysm, without rupture, unspecified
CPT/HCPCS: 78451; 78452; A9500

== ENCOUNTER 2024-01-13 07:11 | Outpatient (OUT) | payer MEDICARE, OTHER, SELFPAY ==
--- OUTSIDE RECORDS SUMMARY | 2024-01-13 07:14 | XMS_ITS | CCD ---
Author Organization [facility] Care Team Providers Care Real Estate Representative Name Role Phone PHYSICIAN, DEFAULT Unavailable Unavailable PHYSICIAN, DEFAULT Unavailable Unavailable MARCK TATE Unavailable Unavailable HOY ., DR ACHARYA Admitting Unavailable HOY ., DR ACHARYA Attending Unavailable HOY ., DR ACHARYA Primary Care Unavailable HOY ., DR ACHARYA Consulting Unavailable [place], DR SANDOVAL Ferguson Consulting Unavailable HOY ., [...] Attending Unavailable MARTIN, FORREST Attending Unavailable MARTINBALDOMERO FERNANDEZY Attending Unavailable FORREST SALAZAR Attending Unavailable Sha Vallejo Attending Unavaila ble NONE, XXXX Referring Unavailable Sha Vallejo Attending Unavaila ble NONE, XXXX Referring Unavailable MD Tam Vallejo Attending Unavailable NONE, XXXX Referring Unavailable Sha Vallejo Attending Unavaila ble Sha Vallejo Admitting Unavaila ble NONE, XXXX Referring Unavailable CALE HOPE Attending Unavailable Allergies Allergy Classification Reported Allergen(s) Allergy Type Date of Onset Reaction(s) Facility (1 source) No Known Medication Allergies; Translations: [No Known Medication Allergies] Propensity to adverse reactions (disorder) [facility] Repository Medications Current Medications Medication Drug [...] Daily, # 30 tab(s), Refills(s) 6, Pharmacy: [facility] #[id number], 152, cm, 12/16/23 15:27:00 EDT, Height/Length Dosing, [...] 10 mg Tab Refills(s) 0 Start Date: 7/26/24 Status: Ordered Start: 04-10-2023 take 1 tablet [...] Daily, # 30 tab(s), Refills(s) 6, Pharmacy: [facility] #[id number], 152, cm, 12/16/23 15:27:00 EDT, Height/Length Dosing, [...] day. 0 04/06/2023 Active Start: 01-20-2023 Judit Marionub 1 00 mcg-50 mcg inhalation powder Refill(s) [...] [Thoracic aortic aneurysm, without rupture, unspecified] Onset: 3 Chronic Chronic obstructive pulmonary disease and bronchiectasis (5 sources) Chronic obstructive pulmonary disease, unspecified; Translations: [COPD UNSPECIFIED] Onset: 3 Chronic Congestive heart failure; nonhypertensive (1 source) Unspecified diastolic (congestive) heart failure; Translations: [UNSPECIFIED DIASTOLIC HEART FAILURE] Onset: 3 Chronic Coronary atherosclerosis and other heart disease (4 sources) Atherosclerotic heart disease of [place] coronary artery without angina pectoris; Translations: [Coronary atherosclerosis] Onset: 3 Chronic Diabetes mellitus with complications (4 sources) Type 2 diabetes mellitus with hyperglycemia; Translations: [TYPE 2 DM W/HYPERGLYCEMIA] Onset: 3 Chronic Diabetes mellitus without complication (2 sources) Type 2 diabetes mellitus without complications; Translations: [Type 2 diabetes mellitus without complications] Onset: 4 Chronic Disorders of lipid metabolism (3 sources) Hyperlipidemia, unspecified; Translations: [Pure hypercholesterolemia, unspecified] Onset: 3 Chronic Essential hypertension (3 sources) Essential hypertension; Translations: [Essential (primary) hypertension] Onset: 4 Chronic Hypertension with complications and secondary hypertension (1 source) Hypertensive heart disease with heart failure; Translations: [HTN HEART DISEASE W/HEART FAIL] Onset: 3 Chronic Nonspecific chest pain (2 sources) Chest pain; Translations: [Chest pain, unspecified] Onset: 3 04-26-2023 Episodic Nutritional deficiencies (1 source) Vitamin D deficiency, unspecified; Translations: [VITAMIN D DEFICIENCY UNSPECIFIED] Onset: 3 Chronic Occlusion or stenosis of precerebral arteries (1 source) Bilateral stenosis of carotid arteries; Translations: [Occlusion and stenosis of bilateral carotid arteries] 05-04-2023 Chronic Other circulatory disease (1 source) Vascular disorder; Translations: [Other disorders of arteries, arterioles and capillaries in diseases classified elsewhere] 05-04-2023 Chronic Other gastrointestinal disorders (1 source) Diarrhea, unspecified; Translations: [DIARRHEA UNSPECIFIED] Onset: 3 Episodic Other lower respiratory disease (2 sources) Other forms of dyspnea; Translations: [Other forms of dyspnea] Onset: 4 Episodic Other nutritional; endocrine; and metabolic disorders (2 sources) Overweight; Translations: [Overweight] Onset: 4 Episodic Other screening for suspected conditions (not mental disorders or infectious disease) (9 sources) Encounter for screening for malignant neoplasm of rectum; Translations: [Encounter for screening mammogram for malignant neoplasm of breast] Onset: 2 Episodic Residual codes; unclassified (2 sources) Tobacco use; Translations: [Tobacco use] Onset: 4 Episodic Substance-related disorders (1 source) Nicotine dependence, cigarettes, uncomplicated; Translations: [NICOTINE DEPEND CIGARETTES UNCOMP] Onset: 3 Chronic Unclassified (1 source) COUGH, UNSPECIFIED; Translations: [COUGH, UNSPECIFIED] Onset: 3 Unclassified (1 source) Thoracoabdominal aortic aneurysm, without rupture, unspecified; Translations: [Thoracoabdominal aortic aneurysm, without rupture, unspecified] Onset: 4 Past or Other Problems Problem Classification Problem Date Documented Date Episodic/Chronic Diabetes mellitus without complication (1 source) [...] MALIG NEOPLASM OTH ORGN/SYS] Onset: 02-18-2022 Episodic Unclassified (1 source) Thoracoabdominal aortic aneurysm, without rupture, unspecified; Translations: [Thoracoabdominal aortic aneurysm, without rupture, unspecified] Onset: 01-09-2024 Results Test Name Value Interpretation Reference Range Facility Office Visiton 01-09-2024 Follow-up visit [id number] JakyBeth Gutierrez 1940 F Date Provider Department Center 01/09/2024 [id number]-MRURKWCALE HOPE [facility] Family History Problem Relation Age of Onset Heart attack Father Diabetes Sister Coronary artery disease Brother Aneurysm Brother Diabetes Brother Family Status - Relation Status Age at Father Sister Brother Level of Service:83036 CO OFFICE/OUTPATIENT NEW MODERATE MDM 45 MINUTES Reason for Visit and Comments: New Patient [632] - Pt complains of sob. Normal [facility] Heart and Vascular Office/Cl inic Noteon 12-16-2023 Heart and Vascular Office/Clinic Note [...] aneurysm, without rupture, unspecified) 2. CAD in [place] artery (I25.10: Atherosclerotic heart disease of [place] coronary artery without angina pectoris) 3. HTN [...] Brenda Gehrig's disease: Father. [1] CTA Chest; Luís CURRIE, Edinson Kuhn 09/24/2022 10:55 EDT Normal [facility] Comment on above: Result Comment: Elec tronically Signed By: Genevieve CURRIE, Tam Perez.ede\Date and Time Signed: 12/16/23 15:48 EDT Heart [...] well. She has reached out to the [facility] and has been assigned a doctor [...] However, during her recent visit to the [facility], she was informed that her aorta [...] routine follow-up. She had an evaluation at [facility] for her aneurysm. She also got a CT angiogram with runoff. This showed the aneurysm is 5.9 cm by testing at [place], but measured 5.3 cm. As per patient at [facility], she has an occluded right SFA, [...] with voice recognition artificial intelligence software, specifically [employer] and or [employer]. Substitutions may have occurred with voice recognition and artificial intelligence software. Documentation services were performed after patient or guardian consented to allow [employer] to record this visit. SANTSO corporate specialist and provider reviewed before signing. SANTOS: [...] No Known Medicat (more content not included)... [facility] Comment on above: Result Comment: Elec tronically Signed By: Genevieve CURRIE, Sha Bustos\.br\Date and Time Signed: 05/29/23 20:33 EST\.br\Electronically Co-Signed By: Annmarie Mccray\.br\Date and Time Co-Signed: 05/12/23 12:52 EST Physician Orderon 05-13-2023 Physician Order [id number] 5#1.00TIFF [facility] CNOVon 05-03-2023 CNOV Office Visit (GIOVANIN) BETH STARKEY ([id number]) 1940 F Date Time Provider Department 05/03/23 12:00 PM JENA HICKS During your visit today, we recorded the following information about you: Temperature Pulse Respiration Blood pressure 98.3 degrees 86/minute 16/minute 103/59 Weight Height 65.8 kg 1.524 m Jena Hicks MD 05/03/2023 3:31 PM Signed [facility] [place] DEPARTMENT OF VASCULAR SURGERY OUTPATIENT VISIT DATE [...] PHYSICAL E (more content not included)... Normal [facility] CTA ABD/PELV WO/W IVCONon CTA ABD/PELV WO/W IVCON * * *Final Report* * * DATE OF EXAM: May 03 2023 1:27PM [facility] 0467 - CTA ABD/PELV WO/W IVCON / [...] stable BONES: degenerative changes of the spine Tree Chipper (topogram) images: No additional findings. IMPRESSION: * [...] (more content not included)... Invalid Interpretation Code [facility] CTA CHEST (NONGATED) WO/W IV CONon 05-03-2023 CTA CHEST (NONGATED) WO/W IVCON * * *Final Report* * * DATE OF EXAM: May 03 2023 1:27PM [facility] 0124 - CTA CHEST (NONGATED) WO/W IVCON [...] stable BONES: degenerative changes of the spine Tree Chipper (topogram) images: No additional findings. IMPRESSION: * [...] (more content not included)... Invalid Interpretation Code [facility] HISTORY PHYSICALon HISTORY PHYSICAL HNO ID: [id number] Author: Jena Hicks MD Service: ? Author Type: Physician Type: HANDP Filed: 05/03/2023 3:31 PM Note Text: [facility] [place] DEPARTMENT OF VASCULAR SURGERY OUTPATIENT VISIT DATE [...] EOM, pupils (more content not included)... Normal [facility] 04-25-2023 CNPN Telephone (PODCCP) BETH STARKEY ([id number]) 1940 F Date Time Provider Department 04/25/23 NO PCP PODCCP During your visit today, we recorded the following information about you: Alondra Quiros 04/25/2023 4:23 PM Signed Reason for call: Ms Starkey called,and she would like to schedule an appointment with vascular surgery Referred by Dr Judit [facility] and cell number: [phone] Diagnosis: AAA Kind Regards Alondra Allergies As of Date: 04/25/2023 (Not on File) Date Reviewed: Never Reviewed Reason for Visit: Appointment [186] Problem List As Of Date: 04/25/2023 (None) Encounter Status:Closed by ALONDRA QUIROS on 04/25/23 [facility] 04-22-2023 CNPN Telephone (REFPHY) BETH STARKEY ([id number]) 1940 F Date Time Provider Department 04/22/23 NO ONE (HISTORICAL) REFPHY During your visit today, we recorded the following information about you: Patrizia Orozco 04/22/2023 10:06 AM Signed Patient: Beth Starkey Date of : 1940 Patient phone number: [phone] Referring Provider for the encounter: Marck Tate MD Requesting Provider: N/A Reason for requesting visit (RFV/signs and symptoms/diagnosis): Sent Telephone Encounter - updated tracking. Person calling: caregiver: Patrizia Return call to: self Medical Records/Insurance Card scanned into [employer]: Yes Comments: N/A Allergies As of Date: 04/22/2023 (Not on File) Date Reviewed: Never Reviewed Reason for Visit: External Referrals/resources [909] Problem List As Of Date: 04/22/2023 (None) Encounter Status:Closed by PATRIZIA OROZCO on 04/22/23 Normal [facility] Outside Radiologyon 04-20-20 23 Outside Radiology [id number] #1.00TIFF [facility] Consent for Treatmenton Consent for Treatment [id number] #1.00TIFF [facility] Lab - Otheron 03-23-2023 Lab - Other [id number] 0#1.00TIFF [facility] Physician Orderon 01-21-2023 Physician Order [id number] #1.00CD:127 [facility] Consent for Treatmenton 12-23 Consent for Treatment [id number]# 1.00CD:127 [facility] CHEMISTRYOrdered By: SYSTEM SYSTEM on 09-24-2022 Creatinine [Mass/Vol] 0.8 mg/dL Normal 0.5 - 1.3 mg/dL [facility] Remisol GFR/1.73 sq M.predicted among non-blacks MDRD (S/P/Bld) [Vol rate/Area] 74 mL/min/1.73 m2 Normal >=59mL/min/1. 73 m2 [facility] Chem S CT CHEST WO CONon 08-02-2022 [...] KAYY KAUR Date: 2022-08-02 10:52 Normal [facility] C. DIFF PCRon 07-28-2022 C. DIFFICILE PCR Negative Normal NEGATIVE [facility] Comment on above: Performed By: #### C DIFPOC #### [facility] [address] [address] [address] Spencer Braun OCC BLD IMMUNO SCREENon OCCULT BLOOD Negative Normal NEGATIVE [facility] Comment on above: Performed By: #### C BC #### [facility] [address], [place] [address] Dr. Spencer Braun INSULINon 07-15-2022 Insulin 17.7 uIU/mL Normal 2.6-24.9 [facility] Comment on above: Performed By: #### I NSULIN ####[facility] [address] [place], [place] [address]GzDr. Spencer Braun BNPon 07-14-2022 Natriuretic peptide B (Bld) [Mass/Vol] 197.0 pg/mL Normal <=1,800.0 [facility] Comment on above: Performed By: #### B MONUMENT SETTER HELPER, LIPID, CMP, T7, TSH #### [facility] [address] [address] [address] Spencer Braun CBC AUTO DIFFon 07-14-2022 BASO # 0.1 103/ul Normal 0.0-0.1 [facility] Comment on above: Performed By: #### C BC #### [facility] [address] [address] [address] Spencer Braun Basophils/100 WBC (Bld) 0.9 % Normal 0.2-2.0 [facility] Comment on above: Performed By: #### C BC #### [facility] [address] [place] [address] Dr. Spencer Braun EO # 0.2 103/ul Normal 0.0-0.7 [facility] Comment on above: Performed By: #### C BC #### [facility] [address] [address] [address] Spencer Braun Eosinophils/100 WBC (Bld) 2.5 % Normal 0.9-7.0 [facility] Comment on above: Performed By: #### C BC #### [facility] [address] [place] [address] Dr. Spencer Braun Erythrocyte distribution width (RBC) [Ratio] 13.8 % Normal 11.0-15.0 [facility] Comment on above: Performed By: #### C BC #### [facility] [address] [place] [address] Dr. Spencer Braun Hematocrit (Bld) [Volume fraction] 45.1 % Normal 36.0-48.0 [facility] Comment on above: Performed By: #### C BC #### [facility] [address] [place] [address] Dr. Spencer Braun Hemoglobin (Bld) [Mass/Vol] 14.7 g/dL Normal 12.0-16.0 [facility] Comment on above: Performed By: #### C BC #### [facility] [address] [place] [address] Dr. Spencer Braun IG # 0.04 10e3/ul Critically high 0.00-0.03 [facility] Comment on above: Performed By: #### C BC #### [facility] [address] [place] [address] Dr. Spencer Braun IG % 0.5 % Normal 0.0-0.5 [facility] Comment on above: Performed By: #### C BC #### [facility] [address] [place] [address] Dr. Spencer Braun LYMPH # 1.6 103/ul Normal 1.2-3.8 [facility] Comment on above: Performed By: #### C BC #### [facility] [address] [place] [address] Dr. Spencer Braun Lymphocytes/100 WBC (Bld) 20.4 % Critically low 20.5-60.0 [facility] Comment on above: Performed By: #### C BC #### [facility] [address] [place] [address] Dr. Spencer Braun MANUAL DIFF REQ NO Normal [facility] Comment on above: Performed By: #### C BC #### [facility] [address] [place] [address] Dr. Spencer Braun MCH (RBC) [Entitic mass] 28.8 pg Normal 26.7-34.0 [facility] Comment on above: Performed By: #### C BC #### [facility] [address] [place] [address] Dr. Spencer Braun MCHC (RBC) [Mass/Vol] 32.6 g/dL Normal 29.9-35.2 [facility] Comment on above: Performed By: #### C BC #### [facility] [address] [place] [address] Dr. Spencer Braun MCV (RBC) [Entitic vol] 88.3 fL Normal 81.0-99.0 [facility] Comment on above: Performed By: #### C BC #### [facility] [address] [address] [address] Spencer Braun MONO # 0.5 103/ul Normal 0.3-0.8 [facility] Comment on above: Performed By: #### C BC #### [facility] [address] [address] [address] Spencer Braun Monocytes/100 WBC (Bld) 6.5 % Normal 1.7-12.0 [facility] Comment on above: Performed By: #### C BC #### [facility] [address] [address] [address] Spencer Braun NEUT # 5.4 103/ul Normal 1.4-6.5 [facility] Comment on above: Performed By: #### C BC #### [facility] [address] [place] [address] Dr. Spencer Braun Neutrophils/100 WBC (Bld) 69.2 % Normal 43.0-75.0 [facility] Comment on above: Performed By: #### C BC #### [facility] [address] [place] [address] Dr. Spencer Braun Platelet mean volume (Bld) [Entitic vol] 9.1 fL Critically low 9.5-13.5 [facility] Comment on above: Performed By: #### C BC #### [facility] [address] [place] [address] Dr. Spencer Braun PLT 190 103/ul Normal 150-450 [facility] Comment on above: Performed By: #### C BC #### [facility] [address] [place] [address] Dr. Spencer Braun RBC 5.11 106/ul Normal 4.20-5.40 [facility] Comment on above: Performed By: #### C BC #### [facility] [address] [address] [address] Spencer Braun WBC 7.7 103/ul Normal 4.0-11.0 [facility] Comment on above: Performed By: #### C BC #### [facility] [address] [address] [address] Spencer Braun FREE THYROXINE INDEX T7on FTI 2.87 Normal 1.30-4.50 [facility] Comment on above: Performed By: #### B MONUMENT SETTER HELPER, LIPID, CMP, T7, TSH ####[facility] [address] [address] Spencer Braun T3U 33.0 % Normal 30.0-39.0 [facility] Comment on above: Performed By: #### B MONUMENT SETTER HELPER, LIPID, CMP, T7, TSH ####[facility] [address] [address]DrManish Braun T4 [Mass/Vol] 8.70 ug/dL Normal 4.80-13.90 [facility] Comment on above: Performed By: #### B MONUMENT SETTER HELPER, LIPID, CMP, T7, TSH ####[facility] [address] [address]DrManish Braun GLYCOHEMOGLOBIN A1Con 2022 ADA RECOMMENDATION SEE BELOW Normal [facility] Comment on above: Result Comment: ADA RECOMMENDED LIMIT 4.0 - 6.0 ADA THERAPEUTIC TARGET < 7.0 ACTION SUGGESTED > 7.0 Performed By: #### A 1C ####[facility] [address] [address]DrManish Braun Glucose [Mass/Vol] 123 mg/dL Normal [facility] Comment on above: Performed By: #### A 1C ####[facility] [address] [address]DrManish Braun HbA1c (Bld) [Mass fraction] 5.9 % Normal 4.5-6.2 [facility] Comment on above: Performed By: #### A 1C ####[facility] [address] [address]DrManish Braun IRONon 07-14-2022 Iron [Mass/Vol] 70.0 ug/dL Normal 50.0-170.0 [facility] Comment on above: Performed By: #### V ITAD, IRON #### [facility] [address], [place] [address] Dr. Spencer Braun LIPID PROFILEon 07-14-2022 CHOL-HDL RATIO NORM SEE BELOW Normal [facility] Comment on above: Result Comment: 3.3 - 4.4 LOW RISK 4.4 - 7.1 AVERAGE RISK 7.1 - 11.0 MODERATE RISK >11.0 HIGH RISK Performed By: #### B MONUMENT SETTER HELPER, LIPID, CMP, T7, TSH ####[facility] [address] [address]Dr. Spencer Braun Cholesterol [Mass/Vol] 180 mg/dL Normal <=200 [facility] Comment on above: Performed By: #### B MONUMENT SETTER HELPER, LIPID, CMP, T7, TSH ####[facility] [address] [address]Dr. Spencer Braun Cholesterol in HDL [Mass/Vol] 50 mg/dL Normal 40-60 [facility] Comment on above: Performed By: #### B MONUMENT SETTER HELPER, LIPID, CMP, T7, TSH ####[facility] [address] [address]Dr. Spencer Braun Cholesterol in LDL [Mass/Vol] 105.8 mg/dL Normal [facility] Comment on above: Performed By: #### B MONUMENT SETTER HELPER, LIPID, CMP, T7, TSH ####[facility] [address] [place], [place] [address]Ab. Spencer Braun Cholesterol.total/Ch olesterol in HDL [Mass ratio] 3.6 {ratio} Normal [facility] Comment on above: Performed By: #### B MONUMENT SETTER HELPER, LIPID, CMP, T7, TSH ####[facility] [address] [address]Dr. Spencer Braun HDL NORMAL > or = 60 mg/dl - LOW CARDIOVASCULAR RISK <40 mg/dl - HIGH CARDIOVASCULAR RISK Normal [facility] Comment on above: Performed By: #### B MONUMENT SETTER HELPER, LIPID, CMP, T7, TSH ####[facility] [address] [address]Dr. Spencer Braun LDL CALC NORMAL SEE BELOW Normal [facility] Comment on above: Result Comment: <100 mg/dl OPTIMAL 100 - 129 mg/dl NEAR OR ABOVE OPTIMAL 130 - 159 mg/dl BORDERLINE HIGH 160 - 189 mg/dl HIGH >190 mg/dl VERY HIGH Performed By: #### B MONUMENT SETTER HELPER, LIPID, CMP, T7, TSH ####[facility] [address] [place], [place] [address]FnManish Braun Triglyceride [Mass/Vol] 121 mg/dL Normal <=150 [facility] Comment on above: Performed By: #### B MONUMENT SETTER HELPER, LIPID, CMP, T7, TSH ####[facility] [address] [place], [place] [address]MnManish Braun VLDL CALC 24.2 mg/dL Normal [facility] Comment on above: Performed By: #### B MONUMENT SETTER HELPER, LIPID, CMP, T7, TSH ####[facility] [address] [place], [place] [address]BfDr. Spencer Braun PROF 14(COMP METB)on 023 Albumin [Mass/Vol] 3.8 g/dL Normal 3.4-5.0 [facility] Comment on above: Performed By: #### B MONUMENT SETTER HELPER, LIPID, CMP, T7, TSH #### [facility] [address] [address] [address] Spencer Braun Albumin/Globulin [Mass ratio] 1.0 {ratio} Normal [facility] Comment on above: Performed By: #### B MONUMENT SETTER HELPER, LIPID, CMP, T7, TSH #### [facility] [address] [address] [address] Spencer Braun ALP [Catalytic activity/Vol] 135 U/L Critically high 46-116 [facility] Comment on above: Performed By: #### B MONUMENT SETTER HELPER, LIPID, CMP, T7, TSH #### [facility] [address] [address] [address] Spencer Braun ALT [Catalytic activity/Vol] 20 U/L Normal 14-59 [facility] Comment on above: Performed By: #### B MONUMENT SETTER HELPER, LIPID, CMP, T7, TSH #### [facility] [address] [address] [address] Spencer Braun Anion gap [Moles/Vol] 8.4 mmol/L Normal [facility] Comment on above: Performed By: #### B MONUMENT SETTER HELPER, LIPID, CMP, T7, TSH #### [facility] [address] [address] [address] Spencer Braun AST [Catalytic activity/Vol] 14 U/L Critically low 15-37 [facility] Comment on above: Performed By: #### B MONUMENT SETTER HELPER, LIPID, CMP, T7, TSH #### [facility] [address] [place] [address] Dr. Spencer Braun Bilirubin [Mass/Vol] 0.4 mg/dL Normal 0.2-1.0 [facility] Comment on above: Performed By: #### B MONUMENT SETTER HELPER, LIPID, CMP, T7, TSH #### [facility] [address] [place] [address] Dr. Spencer Braun Calcium [Mass/Vol] 9.5 mg/dL Normal 8.5-10.1 [facility] Comment on above: Performed By: #### B MONUMENT SETTER HELPER, LIPID, CMP, T7, TSH #### [facility] [address] [place] [address] Dr. Spencer Braun Chloride [Moles/Vol] 104 mmol/L Normal 98-107 [facility] Comment on above: Performed By: #### B MONUMENT SETTER HELPER, LIPID, CMP, T7, TSH #### [facility] [address] [place] [address] Dr. Spencer Braun CO2 [Moles/Vol] 32.0 mmol/L Normal 21.0-32.0 [facility] Comment on above: Performed By: #### B MONUMENT SETTER HELPER, LIPID, CMP, T7, TSH #### [facility] [address] [place] [address] Dr. Spencer Braun Creatinine [Mass/Vol] 0.72 mg/dL Normal 0.55-1.02 [facility] Comment on above: Performed By: #### B MONUMENT SETTER HELPER, LIPID, CMP, T7, TSH #### [facility] [address] [place] [address] Dr. Spencer Braun EGFR-AF YEMENI >60 Normal >=60 [facility] Comment on above: Performed By: #### B MONUMENT SETTER HELPER, LIPID, CMP, T7, TSH #### [facility] [address] [place] [address] Dr. Spencer Braun EGFR-NON AF YEMENI >60 Normal >=60 [facility] Comment on above: Performed By: #### B MONUMENT SETTER HELPER, LIPID, CMP, T7, TSH #### [facility] [address] [place] [address] Dr. Spencer Braun Globulin (S) [Mass/Vol] 3.9 g/dL Normal [facility] Comment on above: Performed By: #### B MONUMENT SETTER HELPER, LIPID, CMP, T7, TSH #### [facility] [address] [place] [address] Dr. Spencer Braun Glucose [Mass/Vol] 127 mg/dL Critically high 74-106 T [facility] Comment on above: Performed By: #### B MONUMENT SETTER HELPER, LIPID, CMP, T7, TSH #### [facility] [address] [place] [address] Dr. Spencer Braun Potassium [Moles/Vol] 4.4 mmol/L Normal 3.5-5.1 [facility] Comment on above: Performed By: #### B MONUMENT SETTER HELPER, LIPID, CMP, T7, TSH #### [facility] [address] [place] [address] Dr. Spencer Braun Protein [Mass/Vol] 7.7 g/dL Normal 6.4-8.2 [facility] Comment on above: Performed By: #### B MONUMENT SETTER HELPER, LIPID, CMP, T7, TSH #### [facility] [address] [place] [address] Dr. Spencer Braun Sodium [Moles/Vol] 140 mmol/L Normal 136-145 [facility] Comment on above: Performed By: #### B MONUMENT SETTER HELPER, LIPID, CMP, T7, TSH #### [facility] [address] [place] [address] Dr. Spencer Braun Urea nitrogen [Mass/Vol] 18.0 mg/dL Normal 7.0-18.0 [facility] Comment on above: Performed By: #### B MONUMENT SETTER HELPER, LIPID, CMP, T7, TSH #### [facility] [address] [place] [address] Dr. Spencer Braun Urea nitrogen/Creatinine [Mass ratio] 25.0 mg/mg Normal [facility] Comment on above: Performed By: #### B MONUMENT SETTER HELPER, LIPID, CMP, T7, TSH #### [facility] [address] [place] [address] Dr. Spencer Braun TSHon 07-14-2022 TSH 1.760 uIU/mL Normal 0.358-3.740 [facility] Comment on above: Performed By: #### B MONUMENT SETTER HELPER, LIPID, CMP, T7, TSH #### [facility] [address] [place] [address] Dr. Spencer Braun VITAMIN D 25 OHon 07-14-2022 VIT D 25-OH 85.7 ng/mL Normal [facility] Comment on above: Performed By: #### V ITAD, IRON #### [facility] [address] [place] [address] Dr. Spencer Braun VIT D RANGES SEE BELOW Normal [facility] Comment on above: Result Comment: <20 ng/mL Vit D deficient 20 - <30 ng/mL Vit D insufficient 30 - 100 ng/mL Vit D sufficient >100 ng/mL Potential Toxicity Performed By: #### V ITAD, IRON #### [facility] [address] [place] [address] Dr. Spencer Braun CBC AUTO DIFFon 04-30-2022 BASO # 0.1 103/ul Normal 0.0-0.1 [facility] Comment on above: Performed By: #### C BC #### [facility] [address] [place] [address] Dr. Spencer Braun Basophils/100 WBC (Bld) 0.9 % Normal 0.2-2.0 [facility] Comment on above: Performed By: #### C BC #### [facility] [address] [place] [address] Dr. Spencer Braun EO # 0.2 103/ul Normal 0.0-0.7 [facility] Comment on above: Performed By: #### C BC #### [facility] [address] [place] [address] Dr. Spencer Braun Eosinophils/100 WBC (Bld) 2.1 % Normal 0.9-7.0 [facility] Comment on above: Performed By: #### C BC #### [facility] [address] [place] [address] Dr. Spencer Braun Erythrocyte distribution width (RBC) [Ratio] 13.9 % Normal 11.0-15.0 [facility] Comment on above: Performed By: #### C BC #### [facility] [address] [place] [address] Dr. Spencer Braun Hematocrit (Bld) [Volume fraction] 46.2 % Normal 36.0-48.0 [facility] Comment on above: Performed By: #### C BC #### [facility] [address] [place] [address] Dr. Spencer Braun Hemoglobin (Bld) [Mass/Vol] 15.1 g/dL Normal 12.0-16.0 [facility] Comment on above: Performed By: #### C BC #### [facility] [address] [place] [address] Dr. Spencer Braun IG # 0.05 10e3/ul Critically high 0.00-0.03 [facility] Comment on above: Performed By: #### C BC #### [facility] [address] [place] [address] Dr. Spencer Braun IG % 0.6 % Critically high 0.0-0.5 [facility] Comment on above: Performed By: #### C BC #### [facility] [address] [place] [address] Dr. Spencer Braun LYMPH # 1.7 103/ul Normal 1.2-3.8 [facility] Comment on above: Performed By: #### C BC #### [facility] [address] [place] [address] Dr. Spencer Braun Lymphocytes/100 WBC (Bld) 20.3 % Critically low 20.5-60.0 [facility] Comment on above: Performed By: #### C BC #### [facility] [address] [place] [address] Dr. Spencer Braun MANUAL DIFF REQ NO Normal [facility] Comment on above: Performed By: #### C BC #### [facility] [address] [place] [address] Dr. Spencer Braun MCH (RBC) [Entitic mass] 28.8 pg Normal 26.7-34.0 [facility] Comment on above: Performed By: #### C BC #### [facility] [address] [place] [address] Dr. Spencer Braun MCHC (RBC) [Mass/Vol] 32.7 g/dL Normal 29.9-35.2 [facility] Comment on above: Performed By: #### C BC #### [facility] [address] [place] [address] Dr. Spencer Braun MCV (RBC) [Entitic vol] 88.2 fL Normal 81.0-99.0 [facility] Comment on above: Performed By: #### C BC #### [facility] [address] [place] [address] Dr. Spencer Braun MONO # 0.6 103/ul Normal 0.3-0.8 [facility] Comment on above: Performed By: #### C BC #### [facility] [address] [place] [address] Dr. Spencer Braun Monocytes/100 WBC (Bld) 7.1 % Normal 1.7-12.0 [facility] Comment on above: Performed By: #### C BC #### [facility] [address] [place] [address] Dr. Spencer Braun NEUT # 5.7 103/ul Normal 1.4-6.5 [facility] Comment on above: Performed By: #### C BC #### [facility] [address] [place] [address] Dr. Spencer Braun Neutrophils/100 WBC (Bld) 69.0 % Normal 43.0-75.0 [facility] Comment on above: Performed By: #### C BC #### [facility] [address] [place] [address] Dr. Spencer Braun Platelet mean volume (Bld) [Entitic vol] 9.2 fL Critically low 9.5-13.5 [facility] Comment on above: Performed By: #### C BC #### [facility] [address] [address] [address] Spencer Braun PLT 180 103/ul Normal 150-450 [facility] Comment on above: Performed By: #### C BC #### [facility] [address] [address] [address] Spencer Braun RBC 5.24 106/ul Normal 4.20-5.40 [facility] Comment on above: Performed By: #### C BC #### [facility] [address] [address] [address] Spencer Braun WBC 8.2 103/ul Normal 4.0-11.0 [facility] Comment on above: Performed By: #### C BC #### [facility] [address] [address] [address] Spencer Braun FREE T3on 04-30-2022 FREE T3 2.98 pg/mlL Normal 2.18-3.98 [facility] Comment on above: Performed By: #### L IPID, TSH, T4, FT3, CMP ####[facility] [address] [place], [place] [address]DrManish Braun GLYCOHEMOGLOBIN A1Con 2021 ADA RECOMMENDATION SEE BELOW Normal [facility] Comment on above: Result Comment: ADA RECOMMENDED LIMIT 4.0 - 6.0 ADA THERAPEUTIC TARGET < 7.0 ACTION SUGGESTED > 7.0 Performed By: #### A 1C ####[facility] [address] [address]DrManish Braun Glucose [Mass/Vol] 134 mg/dL Normal [facility] Comment on above: Performed By: #### A 1C ####[facility] [address] [address]DrManish Braun HbA1c (Bld) [Mass fraction] 6.3 % Critically high 4.5-6.2 [facility] Comment on above: Performed By: #### A 1C ####[facility] [address] [address]Dr. Spencer Braun LIPID PROFILEon 04-30-2022 CHOL-HDL RATIO NORM SEE BELOW Normal [facility] Comment on above: Result Comment: 3.3 - 4.4 LOW RISK 4.4 - 7.1 AVERAGE RISK 7.1 - 11.0 MODERATE RISK >11.0 HIGH RISK Performed By: #### L IPID, TSH, T4, FT3, CMP ####[facility] [address] [address]Dr. Spencer Braun Cholesterol [Mass/Vol] 177 mg/dL Normal <=200 [facility] Comment on above: Performed By: #### L IPID, TSH, T4, FT3, CMP ####[facility] [address] [address]Dr. Spencer Braun Cholesterol in HDL [Mass/Vol] 56 mg/dL Normal 40-60 [facility] Comment on above: Performed By: #### L IPID, TSH, T4, FT3, CMP ####[facility] [address] [address]Dr. Spencer Braun Cholesterol in LDL [Mass/Vol] 97.8 mg/dL Normal [facility] Comment on above: Performed By: #### L IPID, TSH, T4, FT3, CMP ####[facility] [address] [address]Dr. Spencer Braun Cholesterol.total/Ch olesterol in HDL [Mass ratio] 3.2 {ratio} Normal [facility] Comment on above: Performed By: #### L IPID, TSH, T4, FT3, CMP ####[facility] [address] [address]Dr. Spencer Braun HDL NORMAL > or = 60 mg/dl - LOW CARDIOVASCULAR RISK <40 mg/dl - HIGH CARDIOVASCULAR RISK Normal [facility] Comment on above: Performed By: #### L IPID, TSH, T4, FT3, CMP ####[facility] [address] [address]Dr. Spencer Braun LDL CALC NORMAL SEE BELOW Normal [facility] Comment on above: Result Comment: <100 mg/dl OPTIMAL 100 - 129 mg/dl NEAR OR ABOVE OPTIMAL 130 - 159 mg/dl BORDERLINE HIGH 160 - 189 mg/dl HIGH >190 mg/dl VERY HIGH Performed By: #### L IPID, TSH, T4, FT3, CMP ####[facility] [address] [address]Dr. Spencer Braun Triglyceride [Mass/Vol] 116 mg/dL Normal <=150 [facility] Comment on above: Performed By: #### L IPID, TSH, T4, FT3, CMP ####[facility] [address] [address]Dr. Spencer Braun VLDL CALC 23.2 mg/dL Normal [facility] Comment on above: Performed By: #### L IPID, TSH, T4, FT3, CMP ####[facility] [address] [address]Dr. Spencer Braun PROF 14(COMP METB)on 022 Albumin [Mass/Vol] 3.8 g/dL Normal 3.4-5.0 [facility] Comment on above: Performed By: #### L IPID, TSH, T4, FT3, CMP ####[facility] [address] [address]Dr. Spencer Braun Albumin/Globulin [Mass ratio] 0.9 {ratio} Normal [facility] Comment on above: Performed By: #### L IPID, TSH, T4, FT3, CMP ####[facility] [address] [address]Dr. Spencer Braun ALP [Catalytic activity/Vol] 143 U/L Critically high 46-116 [facility] Comment on above: Performed By: #### L IPID, TSH, T4, FT3, CMP ####[facility] [address] [address]Dr. Spencer Braun ALT [Catalytic activity/Vol] 19 U/L Normal 14-59 [facility] Comment on above: Performed By: #### L IPID, TSH, T4, FT3, CMP ####[facility] [address] [address]Dr. Spencer Braun Anion gap [Moles/Vol] 12.1 mmol/L Normal [facility] Comment on above: Performed By: #### L IPID, TSH, T4, FT3, CMP ####[facility] [address] [address]Dr. Spencer Braun AST [Catalytic activity/Vol] 17 U/L Normal 15-37 [facility] Comment on above: Performed By: #### L IPID, TSH, T4, FT3, CMP ####[facility] [address] [address]Dr. Spencer Braun Bilirubin [Mass/Vol] 0.3 mg/dL Normal 0.2-1.0 [facility] Comment on above: Performed By: #### L IPID, TSH, T4, FT3, CMP ####[facility] [address] [place], [place] [address]Dr. Spencer Braun Calcium [Mass/Vol] 9.5 mg/dL Normal 8.5-10.1 [facility] Comment on above: Performed By: #### L IPID, TSH, T4, FT3, CMP ####[facility] [address] [address]Dr. Spencer Braun Chloride [Moles/Vol] 102 mmol/L Normal 98-107 [facility] Comment on above: Performed By: #### L IPID, TSH, T4, FT3, CMP ####[facility] [address] [address]Dr. Spencer Braun CO2 [Moles/Vol] 32.6 mmol/L Critically high 21.0-32.0 [facility] Comment on above: Performed By: #### L IPID, TSH, T4, FT3, CMP ####[facility] [address] [address]Dr. Sepncer Braun Creatinine [Mass/Vol] 0.69 mg/dL Normal 0.55-1.02 [facility] Comment on above: Performed By: #### L IPID, TSH, T4, FT3, CMP ####[facility] [address] [address]Dr. Spencer Braun EGFR-AF YEMENI >60 Normal >=60 [facility] Comment on above: Performed By: #### L IPID, TSH, T4, FT3, CMP ####[facility] [address] [address]Dr. Spencer Braun EGFR-NON AF YEMENI >60 Normal >=60 [facility] Comment on above: Performed By: #### L IPID, TSH, T4, FT3, CMP ####[facility] [address] [address]Dr. Spencer Braun Globulin (S) [Mass/Vol] 4.1 g/dL Normal [facility] Comment on above: Performed By: #### L IPID, TSH, T4, FT3, CMP ####[facility] [address] [place], [place] [address]Dr. Spencer Braun Glucose [Mass/Vol] 108 mg/dL Critically high 74-106 [facility] Comment on above: Performed By: #### L IPID, TSH, T4, FT3, CMP ####[facility] [address] [place], [place] [address]Dr. Spencer Braun Potassium [Moles/Vol] 4.7 mmol/L Normal 3.5-5.1 [facility] Comment on above: Performed By: #### L IPID, TSH, T4, FT3, CMP ####[facility] [address] [address]Dr. Spencer Braun Protein [Mass/Vol] 7.9 g/dL Normal 6.4-8.2 [facility] Comment on above: Performed By: #### L IPID, TSH, T4, FT3, CMP ####[facility] [address] [place], [place] [address]Dr. Spencer Braun Sodium [Moles/Vol] 142 mmol/L Normal 136-145 [facility] Comment on above: Performed By: #### L IPID, TSH, T4, FT3, CMP ####[facility] [address] [address]Dr. Spencer Braun Urea nitrogen [Mass/Vol] 19.0 mg/dL Critically high 7.0-18.0 [facility] Comment on above: Performed By: #### L IPID, TSH, T4, FT3, CMP ####[facility] [address] [address]Dr. Spencer Braun Urea nitrogen/Creatinine [Mass ratio] 27.5 mg/mg Normal [facility] Comment on above: Performed By: #### L IPID, TSH, T4, FT3, CMP ####[facility] [address] [address]Dr. Spencer Braun T4on 04-30-2022 T4 [Mass/Vol] 8.30 ug/dL Normal 4.80-13.90 [facility] Comment on above: Performed By: #### L IPID, TSH, T4, FT3, CMP ####[facility] [address] [address]Dr. Spencer Braun TSHon 04-30-2022 TSH 1.777 uIU/mL Normal 0.358-3.740 [facility] Comment on above: Performed By: #### L IPID, TSH, T4, FT3, CMP ####[facility] [address] [address]Dr. Spencer Braun VITAMIN D 25 OHon 04-30-2022 VIT D 25-OH 72.1 ng/mL Normal [facility] Comment on above: Performed By: #### V ITAD #### [facility] [address] [address] [address] Spencer Braun VIT D RANGES SEE BELOW Normal [facility] Comment on above: Result Comment: <20 ng/mL Vit D deficient 20 - <30 ng/mL Vit D insufficient 30 - 100 ng/mL Vit D sufficient >100 ng/mL Potential Toxicity Performed By: #### V ITAD #### [facility] [address] [address] [address] Spencer Braun MG MAMM SCREEN 3D AWAIS CADon 02-16-2022 MG MAMM SCREEN 3D AWAIS CAD Patient: BETH STARKEY Exam Date: 02/16/2022 : 1940 Gender:F Ordering : DR MARCK TATE . Admission #: [id number] Family : Order #: [id number] CLICK HERE TO VIEW EXAM RADIOLOGY REPORT [...] prostate cancer at age 71. LOCATION: [facility] BREAST COMPOSITION: Heterogeneously dense,which may obscure [...] Encarnacion MD on 02/17/2022 at 07:39 Normal [facility] Vital Signs Date Time Vital Sign Value Performing Clinician Tony jenkins 12-16-2023 15:18-0400 Diastolic blood pressure 68 mm[Hg] [employer] [facility] 12-16-2023 15:18-0400 Systolic blood pressure 118 mm[Hg] Tam [employer] [facility] 05-12-2023 10:13-0500 Diastolic blood pressure 72 mm[Hg] Sha Vallejo [facility] 05-12-2023 10:13-0500 Heart rate 94 /min Sha Vallejo [facility] 05-12-2023 10:13-0500 SaO2% (BldA) [Mass fraction] 90 % Sha Vallejo [facility] 05-12-2023 10:13-0500 Systolic blood pressure 130 mm[Hg] Sha Vallejo [facility] 05-03-2023 12:24-0500 Diastolic blood pressure 59 mm[Hg] Jena Hicks MD Work Phone: [facility] 05-03-2023 12:24-0500 Heart rate 86 /min Jena Hicks MD Work Phone: [facility] 05-03-2023 12:24-0500 Systolic blood pressure 103 mm[Hg] Jena Hicks MD Work Phone: [facility] 05-03-2023 12:14-0500 Body height 152.4 cm Jena Hicks MD Work Phone: [facility] 05-03-2023 12:14-0500 Body temperature 98.29 [degF] Jena Hicks MD Work Phone: [facility] 05-03-2023 12:14-0500 Body weight 65.82 kg Jena Hicks MD Work Phone: [facility] 05-03-2023 12:14-0500 Respiratory rate 16 /min Jena Hicks MD Work Phone: [facility] 05-03-2023 12:14-0500 SaO2% (BldA) [Mass fraction] 93 % Jena Hicks MD Work Phone: [facility] 09-06-2022 09:39-0400 Blood Pressure Location Dayron Jorgensen [facility] 09-06-2022 09:39-0400 Diastolic blood pressure 81 mm[Hg] Dayron Jorgensen [facility] 09-06-2022 09:39-0400 Heart rate 103 /min Dayron Jorgensen [facility] 09-06-2022 09:39-0400 SaO2% (BldA) [Mass fraction] 90 % Dayron Jorgensen [facility] 09-06-2022 09:39-0400 Systolic blood pressure 126 mm[Hg] Dayron Jorgensen [facility] Encounters Encounter Date Encounter Type Care Provider Facility Start: 01-09-2024 End: 01-10-2024 ambulatory [facility] Start: 12-16-2023 End: 12-17-2023 Pre-admission assessment Tam Vallejo [facility] Start: 12-16-2023 End: 12-16-2023 ambulatory MD Tam Vallejo Facility:[facility] Start: 11-09-2023 End: 11-09-2023 ambulatory FORREST SALAZAR Not Available Start: 05-30-2023 End: 05-30-2023 ambulatory FORREST SALAZAR Not Available Start: 05-12-2023 End: 05-12-2023 ambulatory Sha Vallejo Facility:[facility] Start: 05-12-2023 End: 05-12-2023 Patient encounter procedure Sha Vallejo [facility] Start: 05-04-2023 Orders Only Jena Hicks MD Work Phone: [facility] Comment on above: 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); Bilateral carotid artery stenosis; Other disorders of arteries, arterioles and capillaries in diseases classified elsewhere (HCC) Start: 05-03-2023 End: 05-03-2023 ambulatory JENA HICKS Facility:[facility] Start: 05-03-2023 End: 05-03-2023 Office outpatient visit 25 minutes Jena Hicks MD Work Phone: [facility] Comment on above: 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) Start: 04-26-2023 Orders Only Jena Hicks MD Work Phone: [facility] Comment on above: Chest pain, unspecif ied type (Primary Dx) Start: 04-25-2023 Telephone encounter No Pcp [facility] NOC Comment on above: Appointment Start: 04-22-2023 Telephone encounter No One (Historic al) Referring Physician Comment on above: External Referrals/r esources Start: 04-20-2023 End: 04-20-2023 ambulatory FORREST SALAZAR Not Available Start: 03-23-2023 End: 03-23-2023 ambulatory Sha Vallejo Facility:[facility] Start: 03-23-2023 End: 03-23-2023 Patient encounter procedure Sha Vallejo [facility] Start: 01-20-2023 End: 01-20-2023 ambulatory Sha Vallejo Facility:[facility] Start: 01-20-2023 End: 01-20-2023 Patient encounter procedure Sha Vallejo [facility] Start: 09-24-2022 End: 09-24-2022 Patient encounter procedure Dayron Jorgensen [facility] Start: 09-06-2022 End: 09-06-2022 Patient encounter procedure Dayron Jorgensen [facility] Start: 08-02-2022 End: 08-03-[address] MARCK TATE . Facility: Start: 07-28-2022 End: 07-28-[address] MARCK TATE . Facility:[facility] Start: 07-14-2022 End: 07-15-[address] MARCK TATE . Facility:[facility] Start: 04-30-2022 End: 05-01-[address] MARCK TATE . Facility:[facility] Start: 02-16-2022 End: 02-17-[address] MARCK TATE . Facility: Start: 06-17-2017 End: 06-18-2017 Ambulatory DEFAULT PHYSICIAN Facility:[facility] Plan of Treatment Date Care Activity Detail Author Start: 07-04-2029 Urine microalbumin profile DTaP,Tdap,Td Vaccine (2 - Td or Tdap) [facility] Start: 01-21-2023 Influenza vaccination Influenza Vacc ine (#1) [facility] Start: 05-23-2022 Advance Directive Discussion Advance Directive Discussion [facility] Start: 05-23-2022 Depression Assessment Depression Ass essment [facility] Start: 05-18-2017 Pneumococcal Vaccine : 65+ (2 - PPSV23 or PCV20) Pneumococcal Vaccine: 65+ (2 - PPSV23 or PCV20) [facility] Start: 2006 Bone Density Screening Bone Density Screening [facility] Start: 2006 Pneumococcal Vaccine : 65+ (1 - PCV) Pneumococcal Vaccine: 65+ (1 - PCV) [facility] Start: 2006 Screening for osteoporosis Bone Density Screening [facility] Start: 2001 RSV Vaccine (1 - 1-d ose 60+ series) RSV Vaccine (1 - 1-dose 60+ series) [facility] Start: 1991 Shingrix Vaccine (1 of 2) Shingrix Vaccine (1 of 2) [facility] Start: 1986 Diabetes Screening Diabetes Screenin g [facility] Start: 1940 Covid-19 Vaccine (#1) Covid-19 Vacci ne (#1) [facility] End: 05-25-2024 Ct angio abd&plvis cntrst mtrl w/wo cntrst img CTA ABD/PEL WO/W IVCON Radiology Routine Chest pain, unspecified type 1 Occurrences starting 04/26/2023 until 05/25/2024 [facility] Work Phone: Comment on above: 1 Occurrences starti ng 04/26/2023 until 05/25/2024 End: 06-02-2024 Ct angio abd&plvis cntrst mtrl w/wo cntrst img CTA ABD/PEL WO/W IVCON Radiology Routine 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 Occurrences starting 05/04/2023 until 06/02/2024 [facility] Work Phone: Comment on above: 1 Occurrences starti ng 05/04/2023 until 06/02/2024 End: 05-25-2024 Ct angiography chest w/contrast/noncontrast CTA CHEST (NONGATED) WO/W IVCON Radiology Routine Chest pain, unspecified type 1 Occurrences starting 04/26/2023 until 05/25/2024 [facility] Work Phone: Comment on above: 1 Occurrences starti ng 04/26/2023 until 05/25/2024 End: 06-02-2024 Ct angiography chest w/contrast/noncontrast CTA CHEST (NONGATED) WO/W IVCON Radiology Routine 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 Occurrences starting 05/04/2023 until 06/02/2024 [facility] Work Phone: Comment on above: 1 Occurrences starti ng 05/04/2023 until 06/02/2024 End: 05-04-2024 PVR ANK/HILL/TOE AWAIS VAS LAB PVR ANK/HILL/TOE AWAIS VAS LAB Vascular Lab Routine 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) Other disorders of arteries, arterioles and capillaries in diseases classified elsewhere (HCC) 1 Occurrences starting 05/04/2023 until 05/04/2024 [facility] Work Phone: Comment on above: 1 Occurrences starti ng 05/04/2023 until 05/04/2024 End: 05-04-2024 US CAROTID ARTERIES AWAIS VAS LAB US CAROTID ARTERIES AWAIS VAS LAB Vascular Lab Routine Bilateral carotid artery stenosis 1 Occurrences starting 05/04/2023 until 05/04/2024 [facility] Work Phone: Comment on above: 1 Occurrences starti ng 05/04/2023 until 05/04/2024 [facility] Payers Date Payer Category Payer [employer] ( and others) [id number] 2006 Medicare MEDICARE MEDICAR E A AND B [id number] 2006-Present [phone] [facility] [place] [address] Medicare [id number] 1959 [employer] ( and others) [id number] 1959 Medicare [id number] 1940 Unknown [id number] [id number]. 2.593 1941 Unknown [id number] 2.16.840.1.448601.3.579. 2.593 1941 Unknown [id number] 2.16.840.1.170812.3.579. 2.593 1941 Unknown [id number] 2.16.840.1.133370.3.579. 2.593 1941 Unknown [id number] 2.16.840.1.055017.3.579. 2.593 1941 Unknown [id number] 2.16.840.1.821025.3.579. 2.1259 1941 Unknown [id number] 2.16.840.1.981338.3.579. 2.1259 1941 Unknown [id number] 2.16.840.1.894339.3.579. 2.1259 1941 Unknown [id number] 2.16.840.1.492565.3.579. 2.727 1941 Unknown [id number] 2.16.840.1.469572.3.579. 2.727 1941 Unknown [id number] 2.16.840.1.582626.3.579. 2.727 1941 Unknown [id number] 2.16.840.1.390181.3.579. 2.727 Unknown Social History Date Type Detail Facility Start: 09-06-2022 End: 12-16-2023 Tobacco smoking status Heavy tobacco smoker (finding) [facility] Start: 05-03-2023 Sex Assigned At Female F [facility] Tobacco smoking stat [facility] Tobacco smoking consumption unknown [facility] Start: 1940 Sex Assigned At Not on file C [facility] Start: 05-23-1956 [facility] Start: 05-23-1956 History of tobacco use Cigarette Smo ker [facility] Start: 05-03-2023 Cigarettes smoked current (pack per day) - Reported 1.5 [facility] Start: 05-03-2023 Tobacco use and exposure Smokeless tobacco non-user [facility] Start: 05-03-2023 Alcohol intake Current drinke r of alcohol (finding) [facility] National Score (1-10 0), lower number is lower risk 87 [facility] Start: 05-03-2023 Alcohol Comment football season [facility] Functional Status Date Assessment Result Facility 12-16-2023 Functional Status N/A [facility] 05-12-2023 Functional Status N/A [facility] 09-06-2022 Functional Status No [facility] Clinical Notes 03-21-2023 to 01-09-2024 Jena Hicks MD - 05/03/2023 12:42 PM ESTTelephone Encounter - Alondra Quiros - 04/25/2023 4:18 PM ESTTelephone Encounter - Patrizia Orozco - 04/22/2023 10:05 AM ESTRadiologyRadiology Note Date & Type Note Facility 01-09-2024 Note [facility] Note Reason for cardiology consult: Dyspnea on exertion, prior history of CAD Chief Complaint: Dyspnea on exertion HPI: Beth Starkey is a 83 y.o. female with a history of coronary artery disease, status post stent placement in [address] 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, it was recommended to continue to follow with CT scan every 6 months, hypertension, hyperlipidemia, diabetes mellitus, long-term smoking 2-2 and half pack per day for 66 years. And overweight, BMI 29.5 kg/m??? Patient states that she has significant dyspnea on exertion which has been worse therefore her PCP ordered Lexiscan nuclear stress test however it was canceled due to significant wheezing at rest. Since then she was started on pulmonary treatment and wheezing resolved. She cut down on smoking to 1 to 1-1/2 packs/day. She has not been evaluated for oxygen requirement. The patient denies any chest discomfort at rest or with exertion. She denies orthopnea or paroxysmal nocturnal dyspnea or dizziness or palpitations. She admits edema in the feet toward the end of the day. She admits occasional wheezing. She admits cough with small amount of clear phlegm. That improved after she was started on Wixela She denies alcohol or illicit drugs. She admits history of coronary artery disease in the family Cardiology ROS: GENERAL: Denies fever, chills, night sweats, weight loss. HEENT: Denies changes in vision, photophobia, changes in hearing, epistaxis, oral bleeding. CARDIOVASCULAR: She reports significant dyspnea on exertion. Denies chest pain, orthopnea/PND, palpitations, lightheadedness/dizziness. She admits occasional feet edema RESPIRATORY: She admits SOB, coughing, wheezing which is better after she started treatment GI: Denies abdominal pain, nausea/vomiting, heartburn, melena/hematochezia. RENAL: Denies dysuria, hematuria, flank pain. MSK: Denies muscle weakness/pain, arthralgias/joint pain. NEUROLOGIC: Denies LOC, weakness, numbness, headaches. SKIN: Denies abnormal rashes or bleeding. PSYCH: Denies significant anxiety, depression, sleep disturbances. Past Medical History She has a past medical history of Aneurysm (CMS/HCC), Coronary artery disease, Diabetes mellitus (CMS/HCC), and Hyperlipidemia. Surgical History She has a past surgical history that includes Coronary stent placement; Cardiac catheterization; and Cholecystectomy. Social History She reports that she has been smoking cigarettes. She has been smoking an average of 2 packs per day. She has never used smokeless tobacco. She reports current alcohol use. No history on file for drug use. Family History Family History Problem Relation Name Age of Onset Heart attack Father Diabetes Sister Coronary artery disease Brother Aneurysm Brother Diabetes Brother Allergies Patient has no known allergies. Medications Current Outpatient Medications: ascorbic acid (Vitamin C) 500 mg chewable tablet, Chew 500 mg in the morning., Disp: , Rfl: aspirin 81 mg chewable tablet, Chew 81 mg in the morning., Disp: , Rfl: atorvastatin (Lipitor) 40 mg tablet, Take 40 mg by mouth in the morning., Disp: , Rfl: cetirizine (ZyrTEC) 10 mg tablet, , Disp: , Rfl: cholecalciferol (Vitamin D-3) 25 MCG (1000 units) tablet, Take 1,000 Units by mouth in the morning., Disp: , Rfl: fluticasone propion-salmeteroL (Wixela Inhub) 100-50 mcg/dose diskus inhaler, Inhale 1 puff twice a day., Disp: , Rfl: glimepiride (Amaryl) 2 mg tablet, Take 2 mg by mouth., Disp: , Rfl: lisinopril 40 mg tablet, Take 40 mg by mouth in the morning., Disp: , Rfl: metFORMIN (Glucophage) 500 mg tablet, Take 1 tablet by mouth with breakfast and with evening meal., Disp: , Rfl: metoprolol succinate XL (Toprol-XL) 25 mg 24 hr tablet, Take 25 mg by mouth in the morning. Do not crush or chew., Disp: , Rfl: omeprazole (PriLOSEC) [address] capsule, Take 20 mg by mouth in the morning., Disp: , Rfl: pramipexole (Mirapex) 1 mg tablet, Take 1 mg by mouth., Disp: , Rfl: Last Recorded Vitals Visit Vitals BP 96/68 (BP Location: Right arm, Patient Position: Sitting) Pulse 87 Ht 1.524 m (5') Wt 68.5 kg (151 lb) SpO2 91% BMI 29.49 kg/m??? Smoking Status Every Day BSA 1.7 m??? Physical Examination: GENERAL: alert and oriented x3, well developed, in no acute distress. HEAD: atraumatic, normocephalic. EYES: ZEENAT, EOMI. NECK: trachea midline, no JVD present, no carotid bruits present. CARDIAC: S1, S2 present. RRR. No murmur, rubs, or gallops. RESPIRATORY: Generalized decreased breath sound, CTAB, no increased effort of breathing, no rales, or wheezing. Scattered fine rhonchi ABDOMEN: soft, nontender, nondistended. EXTREMITIES: Trace edema at the back of the feet. Skin discoloration is noted. NEURO: strength/sensation equal and symmetric in bilateral u (more content not included)... [facility] 05-26-2023 Note Patient Outreach ( LMWA) BETH STARKEY ([id number]) 1940 F Date Time Provider Department 05/26/23 [...] and brochure sent Lung Nodule Program Location: [place] Allergies As of Date: 05/26/2023 (No Known [...] Encounter Status:Closed by EVANGELINA BURNETT on 05/26/23 [facility] 05-26-2023 Note HNO ID: [id number] Author: ?, ?, ? Service: ? Author [...] brochure sent [place] [facility] Patient Outreach ([facility]) BETH STARKEY ([id number]) 1940 F Date Time Provider Department 05/18/23 CROW BELLOSteven During your visit today, we recorded the following information about you: Crow Bello APRN.NITROGEN OPERATOR 05/18/2023 11:12 AM Signed Incidental Lung Nodule Enrollment Outreach attempt: 1st Attempt Outreach status: Complete Enrolled in Lung Nodule program: Referred Lung Nodule outreach: No outreach - Very small nodule, letter and brochure sent Lung Nodule Program Location: [place] Allergies As of Date: 05/18/2023 (No Known [...] Encounter Status:Closed by CROW BELLO on 05/18/23 [facility] 12-27-2023 Note HNO ID: [id number] Author: Crow Bello APRN.JAYDEN Service: ? Author Type: Nurse Practitioner Type: Progress Notes Filed: 05/18/2023 11:12 AM Note Text: Incidental Lung Nodule Enrollment Outreach attempt: 1st Attempt Outreach status: Complete Enrolled in Lung Nodule program: Referred Lung Nodule outreach: No outreach - Very small nodule, letter and brochure sent Lung Nodule [place] [facility] [place] Note HNO ID: [id number] Author: Nadine Cummins RN Service: Radiology Author [...] DATE: May 03, 2023 TIME: 1:00 PM [facility] 05-03-2023 Note HNO ID: [id number] Author: Kandy Aragon RT(Gilberto) Service: Radiology Author [...] RT Tess(R) May 03, 2023 1:19 PM [facility] 05-03-2023 History and physical note Heart , Vascular and Thoracic [place] DEPARTMENT OF VASCULAR SURGERY OUTPATIENT VISIT DATE [...] 4 - Moderate documented in this encounter [facility] 04-25-2023 Miscellaneous Notes Reason for call: Ms Starkey called,and she would like to schedule an appointment with vascular surgery Referred by Dr Judit [facility] and cell number: [phone] Diagnosis: AAA Kind Regards Jaelynn documented in this encounter [facility] 04-22-2023 Miscellaneous Notes Patient: Beth Starkey Date of : 1940 Patient phone number: [phone] Referring Provider for the encounter: Marck Tate MD Requesting Provider: N/A Reason for requesting visit (RFV/signs and symptoms/diagnosis): Sent Telephone Encounter - updated tracking. Person calling: caregiver: Patrizia Return call to: self Medical Records/Insurance Card scanned into Epic: Yes Comments: N/A documented in this encounter [facility] 03-23-2023 Evaluation + Plan note Diagnostic Tests PendingCreatinine 03/23/23 Future Scheduled TestsCTA Abd Aorto-bilat/ iliofemoral runoff 03/22/23 [facility] 03-22-2023 Evaluation + Plan note Future Scheduled TestsCTA Abd Aorto-bilat/ iliofemoral runoff 03/22/23 [facility] 03-21-2023 Note History of Present I llness [...] 6 cm. 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 She denies chest pain or dyspnea. She does have some dyspnea on exertion. Beth Starkey has a history of 2 stents placed in her heart by Dr. Wells at [place]. Review of Systems Constitutional: no fever, no [...] with voice recognition artificial intelligence software, specifically [employer] and or [employer]. Substitutions may have occurred with voice recognition and artificial intelligence software. ATTESTATION: Documentation services were performed after patient or guardian consented to allow [employer] to record this visit. SANTOS corporate specialist and provider reviewed before signing. SANTOS: [...] heart failure: Mother. Brenda Gehrig's disease: Father. [facility] Comment on above: Result Comment: Elec tronically Signed By: Genevieve CURRIE, Sha Bustos\.br\Date and Time Signed: 03/21/23 11:20 EDT\.br\Electronically Co-Signed By: Beth Sanders\.br\Date and Time Co-Signed: 01/20/23 12:18 EDT Evaluation + Plan note Future Appointments Appointment Date:10/11/2022 10:00:00 AM Scheduled Provider:Dayron Jorgensen MD Location:[facility] Appointment Type:Vascular Follow Up ([facility]) Future Scheduled TestsCTA Abdomen and Pelvis 09/06/22CTA Chest 09/06/22 [facility] Evaluation + Plan note Future Appointments Appointment Date:10/11/2022 10:00:00 AM Scheduled Provider:Dayron Jorgensen MD Location:[facility] Appointment Type:Vascular Follow Up ([facility]) [facility] Evaluation + Plan note Future Scheduled TestsCTA Abd Aorto-bilat/ iliofemoral runoff 03/22/23 [facility] Evaluation + Plan note Future Appointments Appointment Date:06/18/2024 09:45:00 AM Scheduled Provider:Tam Vallejo MD Location[facility] Appointment Type:Cardiology Follow Up (FT) Future Scheduled TestsCTA Abd Aorto-bilat/ iliofemoral runoff 03/22/23 [facility] Evaluation note Diagnosis Chest pain, unspecified type- Primary [facility] Diagnosis 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 documented in this encounter [facility] note* Diagnosis 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 Bilateral carotid artery stenosis Occlusion and stenosis of carotid artery without mention of cerebral infarction Other disorders of arteries, arterioles and capillaries in diseases classified elsewhere (HCC) documented in this encounter [facility] course Narrative No data available for this section [facility] Dis[facility] instructions No data available for this section [facility] No data available for this section [facility] Outpatient Procedure (Routine) - Authorized Specialty Diagnoses / Procedures Referred By Manjula jovel Referred [facility] Diagnoses 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) Other disorders of arteries, arterioles and capillaries in diseases classified elsewhere (HCC) Procedures PVR ANK/HILL/TOE AWAIS VAS LAB NON-INVAS PHYSIOLOGIC STD EXTREMITY ART 2 LEVEL Jena Hicks MD [address] [place] [address] [facility] V[facility] [id number] [place] [address] Referral ID Status Reason Start Date Expiration Date Visits Requested Visits Authorized [id number] Authorized Auto-Generat ed Referral 3 05/03/2024 1 1 * MRI/CT (Routine) - Authorized Specialty Diagnoses / Procedures Referred By Manjula jovel Referred To Contact CT IMAGING Diagnoses 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) Procedures CTA ABD/PEL WO/W IVCON CT ANGIO ABD&PLVIS CNTRST MTRL W/WO CNTRST IMGES Jena Hicks MD [address] [place] [address] [address] [facility] [place] [address] Referral ID Status Reason Start Date Expiration Date Visits Requested Visits Authorized [id number] Authorized Auto-Generat ed Referral 3 06/02/2024 1 1 * MRI/CT (Routine) - Authorized Specialty Diagnoses / Procedures Referred By Manjula jovel Referred To Contact CT IMAGING Diagnoses 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) Procedures CTA CHEST (NONGATED) WO/W IVCON CT ANGIOGRAPHY CHEST W/CONTRAST/NONCONTRAST Jena Hicks MD [address] [place] [address] [address] [facility] [place] [address] Referral ID Status Reason Start Date Expiration Date Visits Requested Visits Authorized [id number] Authorized Auto-Generat ed Referral 3 06/02/2024 1 1 * Outpatient Procedure (Routine) - Authorized Specialty Diagnoses / Procedures Referred By Manjula jovel Referred To [facility] Diagnoses Bilateral carotid artery stenosis Procedures US CAROTID ARTERIES AWAIS VAS LAB DUPLEX SCAN EXTRACRANIAL ART COMPL BI STUDY Jena Hicks MD [address] [place] [address] [facility] [place] [address] [place] [address] Referral ID Status Reason Start Date Expiration Date Visits Requested Visits Authorized [id number] Authorized Auto-Generat ed Referral 3 05/03/2024 1 1 [place] [facility] Summary Purpose Family History No Family History [...] CNTRST MTRL W/WO CNTRST Jena Todd MD [address] [place] [address] Ct [facility] [place] [address] Referral ID Status Reason Start Date Expiration Date Visits Requested Visits Authorized [id number] Authorized Auto-Generat ed Referral 04/26/2023 05/25/2024 1 1 Specialty Diagnoses / Procedures Referred By Contac t Referred To Contact CT IMAGING Diagnoses Chest pain, unspecified type Procedures CTA CHEST (NONGATED) WO/W IVCON CT ANGIOGRAPHY CHEST W/CONTRAST/NONCONTRAST Jena Hicks MD [address] [place] [address] Ct [facility] [place] [address] Referral ID Status Reason Start Date Expiration Date Visits Requested Visits Authorized [id number] Authorized Auto-Generat ed Referral 04/26/2023 05/25/2024 1 1 Additional Source Comments INFORMATION SOURCE (unrecogn ized section and content) DATE CREATED AUTHOR 11/14/2017 [facility] DATE CREATED AUTHOR AUTHOR'S ORGANIZ ATION 08/09/2022 [facility] DATE CREATED AUTHOR AUTHOR'S ORGANIZ ATION 05/27/2023 [facility] DATE CREATED AUTHOR AUTHOR'S ORGANIZ ATION 11/11/2023 [facility] EPIC DATE CREATED AUTHOR AUTHOR'S ORGANIZ ATION 12/29/2023 [facility] DATE CREATED AUTHOR AUTHOR'S ORGANIZ ATION 01/10/2024 [facility] Patient Care team informatio n (unrecognized section and content) Real Estate Representative Relationship Specialty Start Date End Date Marck Tate MD [address] [place] [address] [facility] 04/22/23 Real Estate Representative Relationship Specialty Start Date End Date Marck Tate MD [address] [place] [address] [facility] 04/22/23 Real Estate Representative Relationship Specialty Start Date End Date Marck Tate MD [address] [place] [address] [facility] 04/22/23 Real Estate Representative Relationship Specialty Start Date End Date Marck Tate MD [address] [place] [address] [facility] 04/22/23 Source Comments (unrecognize d section and content) In the event this informatio n is protected by the Federal Confidentiality of Alcohol and Drug Abuse Patient Records regulations: The Federal rules restrict any use of the information to criminally investigate or prosecute any alcohol or drug abuse patient.[facility] the event this information is protected by the Federal Confidentiality of Alcohol and Drug Abuse Patient Records regulations: The Federal rules restrict any use of the information to criminally investigate or prosecute any alcohol or drug abuse patient.[facility] Hospital[facility] the event this information is protected by the Federal Confidentiality of Alcohol and Drug Abuse Patient Records regulations: The Federal rules restrict any use of the information to criminally investigate or prosecute any alcohol or drug abuse patient.[facility] Hospital[facility] the event this information is protected by the Federal Confidentiality of Alcohol and Drug Abuse Patient Records regulations: The Federal rules restrict any use of the information to criminally investigate or prosecute any alcohol or drug abuse patient.[facility] Hospital[facility] the event this information is protected by the Federal Confidentiality of Alcohol and Drug Abuse Patient Records regulations: The Federal rules restrict any use of the information to criminally investigate or prosecute any alcohol or drug abuse patient.[facility] Reason for Visit (unrecogniz ed section [...] BE BASED ON THE PRIMARY CLINICAL RECORDS. [facility]. provides no warranty or guarantee of the accuracy or completeness of information in this document.
--- NOTE | 2024-01-13 07:30 | CA_ITS ---
Patient Name: ADELA PARDO MR#: [id number] : 1940 Exam Date: 01/13/2024 Ordering Doctor: DR. CALE HOPE M.D. ECHOCARDIOGRAM REPORT PROCEDURE: CA ECHO DOPPLER COMPLETE INDICATIONS: Dyspnea on exertion, hypertension, diabetesm PTCA, smoker, COPD COMPARISON: None. DESCRIPTION: COMPLETE ECHOCARDIOGRAM Real-time transthoracic echocardiography with 2D, M-mode, spectral and color flow Doppler performed. QUALITY: Technical quality was good. LEFT VENTRICLE: Normal chamber size. Thickened septal wall. Normal systolic function. LV EF: Normal left ventricular ejection fraction, (55%). DIASTOLIC: Grade I diastolic dysfunction. ATRIAL SEPTUM: Visually appears intact. LEFT ATRIUM: Normal chamber size. RIGHT ATRIUM: Normal chamber size. RIGHT VENTRICLE: Normal chamber size. Normal right ventricular systolic function. TRICUSPID VALVE: Normal mobility and thickness. No stenosis with trivial regurgitation. No evidence of pulmonary hypertension. RVSP 30 mmHg MITRAL VALVE: Mildly thickened with normal mobility. Mild mitral annular calcification. No mitral regurgitation. AORTIC VALVE: Normal trileaflet appearance. Normal leaflet mobility. No evidence of aortic valve stenosis. Multifocal calcifications. No aortic regurgitation. AORTIC ROOT: Normal diameter and appearance. Ascending aorta is normal in size. PULMONIC VALVE: Normal thickness and mobility. No stenosis. Trivial regurgitation. PERICARDIUM: No evidence of pericardial effusion. IVC: Collapses with inspirations. PLEURA: CONCLUSION: 1. Normal ventricular systolic function. LVEF is 55%. 2. Mild diastolic dysfunction. 3. No significant valvular dysfunction. 4. Normal right-sided pressures. Adult Echocardiography Procedure Report Left Ventricle LVEDD (3.7 - 5.6 cm): 4.34 cm LVESD (2.2 - 4.0 cm): 3.80 cm LVIVS thickness (0.6 - 1.2 cm): 1.34 cm LVPW thickness (0.5 - 1.0 cm): 0.68 cm e': 0.04 m/s E - e': 13.27 LVOT Max Gradient: 4.24 mm[Hg] LVOT Area (cm2): 1.03 m/s Peak Velocity (LVOT): 1.03 m/s Mean Velocity (LVOT): 0.67 m/s LVOT Diameter 2.08 cm Left Atrium LA Volume Index (2D A2C): 24.82 ml/m2 Left Atrium Systolic Dimension: 2.83 cm Mitral Valve MV E to A Ratio: 0.75 Mitral Valve A-Wave Peak Velocity: 0.76 m/s Mitral Valve E-Wave Peak Velocity: 0.57 m/s Right Ventricle Aorta AO Root Diam: 2.88 cm Ascending Ao Diam: 2.28 cm, 2.46 cm Aortic Valve AoV Area (Peak Tai): 2.36 cm2, 2.36 cm2 AoV Area (VTI): 2.25 cm2, 2.25 cm2 Peak Velocity(Antegrade Flow): 1.49 m/s Peak Gradient(Antegrade Flow): 8.83 mm[Hg] Mean Velocity(Antegrade Flow): 0.92 m/s Mean Gradient(Antegrade Flow): 3.96 mm[Hg] Velocity Time Integral: 30.33 cm Tricuspid Valve Peak Velocity (Regurgitant Flow): 2.53 m/s, 2.59 m/s Pulmonic Valve Mean Gradient: 1.30 mm[Hg] Mean Velocity: 0.50 m/s Peak Velocity: 0.98 m/s, 0.83 m/s Peak Gradient: 2.77 mm[Hg], 3.86 mm[Hg] Right Atrium Right Atrium Systolic Pressure: 32.81 ml, 32.81 ml Dictated by: Dave Evans M.D. on 01/13/2024 at 12:59 Approved by: Dave Evans M.D. on 01/13/2024 at 13:03
== END 2024-01-13 07:12 | disposition home or self-care (01) ==
LOC: CARD 07:12
PROVIDERS: PCP Family Medicine; Visit Provider Internal Medicine Cardiovascular Disease
DX: R06.09 Other forms of dyspnea (principal)
CPT/HCPCS: 93306

== ENCOUNTER 2024-01-17 07:10 | Outpatient (OUT) | payer MEDICARE, OTHER, SELFPAY ==
--- NOTE | 2024-01-17 | PCN_ITS ---
CARDIAC STRESS TEST Requesting Physician: Dr. Cevallos Procedure Date: 01/17/2024 REASON FOR TEST: Fatigue. Patient presented for Lexiscan study. At baseline, the patient was noted to have a resting heart rate of 83 beats per minute and a blood pressure of 122/80 mm/Hg and the medication raised her maximum heart rate of 95 beats per minute, achieving 68% of the expected rate, with a blood pressure that increased to 122/80. Baseline EKG does demonstrate sinus rhythm with normal intervals. With infusion of the drug, there was no evidence of AV block or PVCs that were seen. However, at 4 minutes of infusion, a singular PVC was noted, which was of left bundle morphology. No EKG evidence of ischemia was seen. IMPRESSION: 1. No EKG evidence of ischemia noted on this study. No AV block seen. Occasional PVC seen. 2. Perfusion study to be dictated separately by Radiology. [facility]ITAL[facility]
--- OUTSIDE RECORDS SUMMARY | 2024-01-17 07:13 | XMS_ITS | CCD ---
Author Organization [facility] Care Team Providers Care Binding Nicker Name Role Phone PHYSICIAN, DEFAULT Unavailable Unavailable PHYSICIAN, DEFAULT Unavailable Unavailable MARCK TATE Unavailable Unavailable HOY ., DR ACHARYA Admitting Unavailable HOY ., DR ACHARYA Attending Unavailable HOY ., DR ACHARYA Primary Care Unavailable HOY ., DR ACHARYA Consulting Unavailable ROXBURY CROSSING, DR SANDOVAL Ferguson Consulting Unavailable HOY ., [...] Consulting Unavailable Nelsony Marck Primary Care Physician [phone] Marck Tate MD Unavailable AMBANI, JENA Referring [...] Medication Allergies] Propensity to adverse reactions (disorder) [facility] Repository Medications Current Medications Medication [...] Daily, # 30 tab(s), Refills(s) 6, Pharmacy: [id number], 152, cm, 12/16/23 15:27:00 EDT, Height/Length Dosing, [...] Daily, # 30 tab(s), Refills(s) 6, Pharmacy: [facility] #[id number], 152, cm, 12/16/23 15:27:00 EDT, Height/Length Dosing, [...] disease (4 sources) 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 Normal [facility] Heart and Vascular Office/Cl inic Noteon 12-16-2023 [...] aneurysm, without rupture, unspecified) 2. 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 HTN [...] CURRIE, Edinson Kuhn 09/24/2022 10:55 EDT Normal [facility] Comment on above: Result Comment: [...] well. She has reached out to the [facility] and has been assigned a doctor [...] However, during her recent visit to the [facility], she was informed that her aorta [...] routine follow-up. She had an evaluation at [facility] for her aneurysm. She also got a CT angiogram with runoff. This showed the aneurysm is 5.9 cm by testing at [place], but measured 5.3 cm. As per patient at [facility], she has an occluded right SFA, [...] with voice recognition artificial intelligence software, specifically [employer], [employer] and or [employer]. Substitutions may have occurred with voice recognition and artificial intelligence software. Documentation services were performed after patient or guardian consented to allow [employer] to record this visit. SANTOS social services specialist and provider reviewed before signing. SANTOS: [...] No Known Medicat (more content not included)... [facility] Comment on above: Result Comment: Elec tronically Signed By: Genevieve CURRIE, Sha Bustos\.br\Date and Time Signed: 05/29/23 20:33 EST\.br\Electronically Co-Signed By: Annmarie Mccray\.br\Date and Time Co-Signed: 05/12/23 12:52 EST Physician Orderon 05-13-2023 Physician Order [id number] 5#1.00TIFF [facility] CNOVon 05-03-2023 CNOV Office Visit (GIOVANIN) BETH STARKEY ([id number]) 1940 F Date Time Provider Department 05/03/23 12:00 PM JENA HICKS During your visit today, we recorded the following information about you: Temperature Pulse Respiration Blood pressure 98.3 degrees 86/minute 16/minute 103/59 Weight Height 65.8 kg 1.524 m Jena Hicks MD 05/03/2023 3:31 PM Signed [facility] [place] DEPARTMENT OF VASCULAR SURGERY OUTPATIENT VISIT DATE [...] PHYSICAL E (more content not included)... Normal [facility] CTA ABD/PELV WO/W IVCONon CTA ABD/PELV WO/W IVCON * * *Final Report* * * DATE OF EXAM: May 03 2023 1:27PM [facility] 0467 - CTA ABD/PELV WO/W IVCON / [...] stable BONES: degenerative changes of the spine Show Horse Driver (topogram) images: No additional findings. IMPRESSION: * [...] (more content not included)... Invalid Interpretation Code [facility] CTA CHEST (NONGATED) WO/W IV CONon 05-03-2023 CTA CHEST (NONGATED) WO/W IVCON * * *Final Report* * * DATE OF EXAM: May 03 2023 1:27PM [facility] 0124 - CTA CHEST (NONGATED) WO/W IVCON [...] stable BONES: degenerative changes of the spine Show Horse Driver (topogram) images: No additional findings. IMPRESSION: * [...] (more content not included)... Invalid Interpretation Code [facility] HISTORY PHYSICALon HISTORY PHYSICAL HNO ID: [id number] Author: Jena Hicks MD Service: ? Author Type: Physician Type: HANDP Filed: 05/03/2023 3:31 PM Note Text: [facility] [place] DEPARTMENT OF VASCULAR SURGERY OUTPATIENT VISIT DATE [...] EOM, pupils (more content not included)... Normal [facility] 04-25-2023 CNPN Telephone (PODCCP) BETH STARKEY ([id number]) 1940 F Date Time Provider Department 04/25/23 NO PCP PODCCP During your visit today, we recorded the following information about you: Alondra Quiros 04/25/2023 4:23 PM Signed Reason for call: Ms Starkey called,and she would like to schedule an appointment with vascular surgery Referred by Dr Judit Tate Home and cell number: [phone] Diagnosis: AAA Kind Regards Alondra Allergies As of Date: 04/25/2023 (Not on File) Date Reviewed: Never Reviewed Reason for Visit: Appointment [186] Problem List As Of Date: 04/25/2023 (None) Encounter Status:Closed by ALONDRA QUIROS on 04/25/23 [facility] 04-22-2023 CNPN Telephone (REFPHY) BETH STARKEY ([id number]) 1940 F Date Time Provider Department 04/22/23 NO ONE (HISTORICAL) REFPHY During your visit today, we recorded the following information about you: Patrizia Orozco 04/22/2023 10:06 AM Signed Patient: Beth Starkey Date of : 1940 Patient phone number: [phone] Referring Provider for the encounter: Markc Tate MD Requesting Provider: N/A Reason for requesting visit (RFV/signs and symptoms/diagnosis): Sent Telephone Encounter - updated tracking. Person calling: caregiver: Patrizia Return call to: self Medical Records/Insurance Card scanned into [employer]: Yes Comments: N/A Allergies As of Date: 04/22/2023 (Not on File) Date Reviewed: Never Reviewed Reason for Visit: External Referrals/resources [909] Problem List As Of Date: 04/22/2023 (None) Encounter Status:Closed by PATRIZIA OROZCO on 04/22/23 Normal [facility] Outside Radiologyon 04-20-20 23 Outside Radiology [id number] #1.00TIFF [facility] Consent for Treatmenton Consent for Treatment [id number] #1.00TIFF [facility] Lab - Otheron 03-23-2023 Lab - Other [id number] 0#1.00TIFF [facility] Physician Orderon 01-21-2023 Physician Order [id number] #1.00CD:127 [facility] Consent for Treatmenton 12-23 Consent for Treatment [id number]# 1.00CD:127 [facility] CHEMISTRYOrdered By: SYSTEM SYSTEM on 09-24-2022 Creatinine [Mass/Vol] 0.8 mg/dL Normal 0.5 - 1.3 mg/dL [facility] Remisol GFR/1.73 sq M.predicted among non-blacks MDRD (S/P/Bld) [Vol rate/Area] 74 mL/min/1.73 m2 Normal >=59mL/min/1. 73 m2 [facility] Chem S CT CHEST WO CONon 08-02-2022 [...] KAYY KAUR Date: 2022-08-02 10:52 Normal [facility] C. DIFF PCRon 07-28-2022 C. DIFFICILE PCR Negative Normal NEGATIVE [facility] Comment on above: Performed By: #### C DIFPOC #### [facility] [address] [address] [address] Spencer Braun OCC BLD IMMUNO SCREENon OCCULT BLOOD Negative Normal NEGATIVE [facility] Comment on above: Performed By: #### C BC #### [facility] [address] [place], [place] [address] Dr. Spencer Braun INSULINon 07-15-2022 Insulin 17.7 uIU/mL Normal 2.6-24.9 [facility] Comment on above: Performed By: #### I NSULIN ####[facility] [address] [place], [place] [address]YtDr. Spencer Braun BNPon 07-14-2022 Natriuretic peptide B (Bld) [Mass/Vol] 197.0 pg/mL Normal <=1,800.0 [facility] Comment on above: Performed By: #### B CIVIL ESTIMATOR, LIPID, CMP, T7, TSH #### [facility] [address] [address] [address] Spencer Braun CBC AUTO DIFFon 07-14-2022 BASO # 0.1 103/ul Normal 0.0-0.1 [facility] Comment on above: Performed By: #### C BC #### [facility] [address] [address] [address] Spencer Braun Basophils/100 WBC (Bld) 0.9 % Normal 0.2-2.0 [facility] Comment on above: Performed By: #### C BC #### [facility] [address] [place] [address] Dr. Spencer Braun EO # 0.2 103/ul Normal 0.0-0.7 [facility] Comment on above: Performed By: #### C BC #### [facility] [address] [address] [address] Spencer Braun Eosinophils/100 WBC (Bld) 2.5 % Normal 0.9-7.0 [facility] Comment on above: Performed By: #### C BC #### [facility] [address] [place] [address] Dr. Spencer Braun Erythrocyte distribution width (RBC) [Ratio] 13.8 % Normal 11.0-15.0 [facility] Comment on above: Performed By: #### C BC #### [facility] [address] [place] [address] Dr. Spencer Braun Hematocrit (Bld) [Volume fraction] 45.1 % Normal 36.0-48.0 [facility] Comment on above: Performed By: #### C BC #### [facility] [address] [place] [address] Dr. Spencer Braun Hemoglobin (Bld) [Mass/Vol] 14.7 g/dL Normal 12.0-16.0 [facility] Comment on above: Performed By: #### C BC #### [facility] [address] [place] [address] Dr. Spencer Braun IG # 0.04 10e3/ul Critically high 0.00-0.03 [facility] Comment on above: Performed By: #### C BC #### [facility] [address] [place] [address] Dr. Spencer Braun IG % 0.5 % Normal 0.0-0.5 [facility] Comment on above: Performed By: #### C BC #### [facility] [address] [place] [address] Dr. Spencer Braun LYMPH # 1.6 103/ul Normal 1.2-3.8 [facility] Comment on above: Performed By: #### C BC #### [facility] [address] [place] [address] Dr. Spencer Braun Lymphocytes/100 WBC (Bld) 20.4 % Critically low 20.5-60.0 [facility] Comment on above: Performed By: #### C BC #### [facility] [address] [place] [address] Dr. Spencer Braun MANUAL DIFF REQ NO Normal [facility] Comment on above: Performed By: #### C BC #### [facility] [address] [place] [address] Dr. Spencer Braun MCH (RBC) [Entitic mass] 28.8 pg Normal 26.7-34.0 [facility] Comment on above: Performed By: #### C BC #### [facility] [address] [place] [address] Dr. Spencer Braun MCHC (RBC) [Mass/Vol] 32.6 g/dL Normal 29.9-35.2 [facility] Comment on above: Performed By: #### C BC #### [facility] [address] [place] [address] Dr. Spencer Braun MCV (RBC) [Entitic vol] 88.3 fL Normal 81.0-99.0 [facility] Comment on above: Performed By: #### C BC #### [facility] [address] [address] [address] Spencer Braun MONO # 0.5 103/ul Normal 0.3-0.8 [facility] Comment on above: Performed By: #### C BC #### [facility] [address] [address] [address] Spencer Braun Monocytes/100 WBC (Bld) 6.5 % Normal 1.7-12.0 [facility] Comment on above: Performed By: #### C BC #### [facility] [address] [address] [address] Spencer Braun NEUT # 5.4 103/ul Normal 1.4-6.5 [facility] Comment on above: Performed By: #### C BC #### [facility] [address] [place] [address] Dr. Spencer Braun Neutrophils/100 WBC (Bld) 69.2 % Normal 43.0-75.0 [facility] Comment on above: Performed By: #### C BC #### [facility] [address] [place] [address] Dr. Spencer Braun Platelet mean volume (Bld) [Entitic vol] 9.1 fL Critically low 9.5-13.5 [facility] Comment on above: Performed By: #### C BC #### [facility] [address] [place] [address] Dr. Spencer Braun PLT 190 103/ul Normal 150-450 [facility] Comment on above: Performed By: #### C BC #### [facility] [address] [place] [address] Dr. Spencer Braun RBC 5.11 106/ul Normal 4.20-5.40 [facility] Comment on above: Performed By: #### C BC #### [facility] [address] [address] [address] Spencer Braun WBC 7.7 103/ul Normal 4.0-11.0 [facility] Comment on above: Performed By: #### C BC #### [facility] [address] [address] [address] Spencer Braun FREE THYROXINE INDEX T7on FTI 2.87 Normal 1.30-4.50 [facility] Comment on above: Performed By: #### B CIVIL ESTIMATOR, LIPID, CMP, T7, TSH ####[facility] [address] [address]Dr[address] Spencer Braun T3U 33.0 % Normal 30.0-39.0 [facility] Comment on above: Performed By: #### B CIVIL ESTIMATOR, LIPID, CMP, T7, TSH ####[facility] [address] [address]DrManish Braun T4 [Mass/Vol] 8.70 ug/dL Normal 4.80-13.90 [facility] Comment on above: Performed By: #### B CIVIL ESTIMATOR, LIPID, CMP, T7, TSH ####[facility] [address] [address]DrManish Braun GLYCOHEMOGLOBIN A1Con 2022 ADA RECOMMENDATION SEE BELOW Normal [facility] Comment on above: Result Comment: ADA RECOMMENDED LIMIT 4.0 - 6.0 ADA THERAPEUTIC TARGET < 7.0 ACTION SUGGESTED > 7.0 Performed By: #### A 1C ####[facility] [address] [address]DrManish Braun Glucose [Mass/Vol] 123 mg/dL Normal [facility] Comment on above: Performed By: #### A 1C ####[facility] [address] [address]DrManish Braun HbA1c (Bld) [Mass fraction] 5.9 % Normal 4.5-6.2 [facility] Comment on above: Performed By: #### A 1C ####[facility] [address] [address]DrManish Braun IRONon 07-14-2022 Iron [Mass/Vol] 70.0 ug/dL Normal 50.0-170.0 [facility] Comment on above: Performed By: #### V ITAD, IRON #### [facility] [address] [place], [place] [address] Dr. Spencer Braun LIPID PROFILEon 07-14-2022 CHOL-HDL RATIO NORM SEE BELOW Normal [facility] Comment on above: Result Comment: 3.3 - 4.4 LOW RISK 4.4 - 7.1 AVERAGE RISK 7.1 - 11.0 MODERATE RISK >11.0 HIGH RISK Performed By: #### B CIVIL ESTIMATOR, LIPID, CMP, T7, TSH ####[facility] [address] [address]Dr. Spencer Braun Cholesterol [Mass/Vol] 180 mg/dL Normal <=200 [facility] Comment on above: Performed By: #### B CIVIL ESTIMATOR, LIPID, CMP, T7, TSH ####[facility] [address] [address]Dr[address] Spencer Braun Cholesterol in HDL [Mass/Vol] 50 mg/dL Normal 40-60 [facility] Comment on above: Performed By: #### B CIVIL ESTIMATOR, LIPID, CMP, T7, TSH ####[facility] [address] [address]Dr[address] Spencer Braun Cholesterol in LDL [Mass/Vol] 105.8 mg/dL Normal [facility] Comment on above: Performed By: #### B CIVIL ESTIMATOR, LIPID, CMP, T7, TSH ####[facility] [address] [place], [place] [address]Sk. Spencer Braun Cholesterol.total/Ch olesterol in HDL [Mass ratio] 3.6 {ratio} Normal [facility] Comment on above: Performed By: #### B CIVIL ESTIMATOR, LIPID, CMP, T7, TSH ####[facility] [address] [address]Dr. Spencer Braun HDL NORMAL > or = 60 mg/dl - LOW CARDIOVASCULAR RISK <40 mg/dl - HIGH CARDIOVASCULAR RISK Normal [facility] Comment on above: Performed By: #### B CIVIL ESTIMATOR, LIPID, CMP, T7, TSH ####[facility] [address] [id number]. Spencer Braun LDL CALC NORMAL SEE BELOW Normal [facility] Comment on above: Result Comment: <100 mg/dl OPTIMAL 100 - 129 mg/dl NEAR OR ABOVE OPTIMAL 130 - 159 mg/dl BORDERLINE HIGH 160 - 189 mg/dl HIGH >190 mg/dl VERY HIGH Performed By: #### B CIVIL ESTIMATOR, LIPID, CMP, T7, TSH ####[facility] [address] [place], [place] [address]QzManish Braun Triglyceride [Mass/Vol] 121 mg/dL Normal <=150 [facility] Comment on above: Performed By: #### B CIVIL ESTIMATOR, LIPID, CMP, T7, TSH ####[facility] [address] [place], [place] [address]FvManish Braun VLDL CALC 24.2 mg/dL Normal [facility] Comment on above: Performed By: #### B CIVIL ESTIMATOR, LIPID, CMP, T7, TSH ####[facility] [address] [place], [place] [address]GxDr. Spencer Braun PROF 14(COMP METB)on 023 Albumin [Mass/Vol] 3.8 g/dL Normal 3.4-5.0 [facility] Comment on above: Performed By: #### B CIVIL ESTIMATOR, LIPID, CMP, T7, TSH #### [facility] [address] [address] [address] Spencer Braun Albumin/Globulin [Mass ratio] 1.0 {ratio} Normal [facility] Comment on above: Performed By: #### B CIVIL ESTIMATOR, LIPID, CMP, T7, TSH #### [facility] [address] [address] [address] Spencer Braun ALP [Catalytic activity/Vol] 135 U/L Critically high 46-116 [facility] Comment on above: Performed By: #### B CIVIL ESTIMATOR, LIPID, CMP, T7, TSH #### [facility] [address] [address] [address] Spencer Braun ALT [Catalytic activity/Vol] 20 U/L Normal 14-59 [facility] Comment on above: Performed By: #### B CIVIL ESTIMATOR, LIPID, CMP, T7, TSH #### [facility] [address] [address] [address] Spencer Braun Anion gap [Moles/Vol] 8.4 mmol/L Normal [facility] Comment on above: Performed By: #### B CIVIL ESTIMATOR, LIPID, CMP, T7, TSH #### [facility] [address] [address] [address] Spencer Braun AST [Catalytic activity/Vol] 14 U/L Critically low 15-37 [facility] Comment on above: Performed By: #### B CIVIL ESTIMATOR, LIPID, CMP, T7, TSH #### [facility] [address] [place] [address] Dr. Spencer Braun Bilirubin [Mass/Vol] 0.4 mg/dL Normal 0.2-1.0 [facility] Comment on above: Performed By: #### B CIVIL ESTIMATOR, LIPID, CMP, T7, TSH #### [facility] [address] [place] [address] Dr. Spencer Braun Calcium [Mass/Vol] 9.5 mg/dL Normal 8.5-10.1 [facility] Comment on above: Performed By: #### B CIVIL ESTIMATOR, LIPID, CMP, T7, TSH #### [facility] [address] [place] [address] Dr. Spencer Braun Chloride [Moles/Vol] 104 mmol/L Normal 98-107 [facility] Comment on above: Performed By: #### B CIVIL ESTIMATOR, LIPID, CMP, T7, TSH #### [facility] [address] [place] [address] Dr. Spencer Braun CO2 [Moles/Vol] 32.0 mmol/L Normal 21.0-32.0 [facility] Comment on above: Performed By: #### B CIVIL ESTIMATOR, LIPID, CMP, T7, TSH #### [facility] [address] [place] [address] Dr. Spencer Braun Creatinine [Mass/Vol] 0.72 mg/dL Normal 0.55-1.02 [facility] Comment on above: Performed By: #### B CIVIL ESTIMATOR, LIPID, CMP, T7, TSH #### [facility] [address] [place] [address] Dr. Spencer Braun EGFR-AF IVORIAN >60 Normal >=60 [facility] Comment on above: Performed By: #### B CIVIL ESTIMATOR, LIPID, CMP, T7, TSH #### [facility] [address] [place] [address] Dr. Spencer Braun EGFR-NON AF IVORIAN >60 Normal >=60 [facility] Comment on above: Performed By: #### B CIVIL ESTIMATOR, LIPID, CMP, T7, TSH #### [facility] [address] [place] [address] Dr. Spencer Braun Globulin (S) [Mass/Vol] 3.9 g/dL Normal [facility] Comment on above: Performed By: #### B CIVIL ESTIMATOR, LIPID, CMP, T7, TSH #### [facility] [address] [place] [address] Dr. Spencer Braun Glucose [Mass/Vol] 127 mg/dL Critically high 74-106 T [facility] Comment on above: Performed By: #### B CIVIL ESTIMATOR, LIPID, CMP, T7, TSH #### [facility] [address] [place] [address] Dr. Spencer Braun Potassium [Moles/Vol] 4.4 mmol/L Normal 3.5-5.1 [facility] Comment on above: Performed By: #### B CIVIL ESTIMATOR, LIPID, CMP, T7, TSH #### [facility] [address] [place] [address] Dr. Spencer Braun Protein [Mass/Vol] 7.7 g/dL Normal 6.4-8.2 [facility] Comment on above: Performed By: #### B CIVIL ESTIMATOR, LIPID, CMP, T7, TSH #### [facility] [address] [place] [address] Dr. Spencer Braun Sodium [Moles/Vol] 140 mmol/L Normal 136-145 [facility] Comment on above: Performed By: #### B CIVIL ESTIMATOR, LIPID, CMP, T7, TSH #### [facility] [address] [place] [address] Dr. Spencer Braun Urea nitrogen [Mass/Vol] 18.0 mg/dL Normal 7.0-18.0 [facility] Comment on above: Performed By: #### B CIVIL ESTIMATOR, LIPID, CMP, T7, TSH #### [facility] [address] [place] [address] Dr. Spencer Braun Urea nitrogen/Creatinine [Mass ratio] 25.0 mg/mg Normal [facility] Comment on above: Performed By: #### B CIVIL ESTIMATOR, LIPID, CMP, T7, TSH #### [facility] [address] [place] [address] Dr. Spencer Braun TSHon 07-14-2022 TSH 1.760 uIU/mL Normal 0.358-3.740 [facility] Comment on above: Performed By: #### B CIVIL ESTIMATOR, LIPID, CMP, T7, TSH #### [facility] [address] [place] [address] Dr. Spencer Braun VITAMIN D 25 OHon 07-14-2022 VIT D 25-OH 85.7 ng/mL Normal [facility] Comment on above: Performed By: #### V ITAD, IRON #### [facility] [address] [place] [address] Dr. Spencer Braun VIT D RANGES SEE BELOW Normal [facility] Comment on above: Result Comment: <20 ng/mL Vit D deficient 20 - <30 ng/mL Vit D insufficient 30 - 100 ng/mL Vit D sufficient >100 ng/mL Potential Toxicity Performed By: #### V ITAD, IRON #### [facility] [facility] [address] [place] [address] Dr. Spencer Braun CBC AUTO DIFFon 04-30-2022 BASO # 0.1 103/ul Normal 0.0-0.1 [facility] Comment on above: Performed By: #### C BC #### [facility] [address] [place] [address] Dr. Spencer Braun Basophils/100 WBC (Bld) 0.9 % Normal 0.2-2.0 [facility] Comment on above: Performed By: #### C BC #### [facility] [address] [place] [address] Dr. Spencer Braun EO # 0.2 103/ul Normal 0.0-0.7 [facility] Comment on above: Performed By: #### C BC #### [facility] [address] [place] [address] Dr. Spencer Braun Eosinophils/100 WBC (Bld) 2.1 % Normal 0.9-7.0 [facility] Comment on above: Performed By: #### C BC #### [facility] [address] [place] [address] Dr. Spencer Braun Erythrocyte distribution width (RBC) [Ratio] 13.9 % Normal 11.0-15.0 [facility] Comment on above: Performed By: #### C BC #### [facility] [address] [place] [address] Dr. Spencer Braun Hematocrit (Bld) [Volume fraction] 46.2 % Normal 36.0-48.0 [facility] Comment on above: Performed By: #### C BC #### [facility] [address] [place] [address] Dr. Spencer Braun Hemoglobin (Bld) [Mass/Vol] 15.1 g/dL Normal 12.0-16.0 [facility] Comment on above: Performed By: #### C BC #### [facility] [address] [place] [address] Dr. Spencer Braun IG # 0.05 10e3/ul Critically high 0.00-0.03 [facility] Comment on above: Performed By: #### C BC #### [facility] [address] [place] [address] Dr. Spencer Braun IG % 0.6 % Critically high 0.0-0.5 [facility] Comment on above: Performed By: #### C BC #### [facility] [address] [place] [address] Dr. Spencer Braun LYMPH # 1.7 103/ul Normal 1.2-3.8 [facility] Comment on above: Performed By: #### C BC #### [facility] [address] [place] [address] Dr. Spencer Braun Lymphocytes/100 WBC (Bld) 20.3 % Critically low 20.5-60.0 [facility] Comment on above: Performed By: #### C BC #### [facility] [address] [place] [address] Dr. Spencer Braun MANUAL DIFF REQ NO Normal [facility] Comment on above: Performed By: #### C BC #### [facility] [address] [place] [address] Dr. Spencer Braun MCH (RBC) [Entitic mass] 28.8 pg Normal 26.7-34.0 [facility] Comment on above: Performed By: #### C BC #### [facility] [address] [place] [address] Dr. Spencer Braun MCHC (RBC) [Mass/Vol] 32.7 g/dL Normal 29.9-35.2 [facility] Comment on above: Performed By: #### C BC #### [facility] [address] [place] [address] Dr. Spencer Braun MCV (RBC) [Entitic vol] 88.2 fL Normal 81.0-99.0 [facility] Comment on above: Performed By: #### C BC #### [facility] [address] [place] [address] Dr. Spencer Braun MONO # 0.6 103/ul Normal 0.3-0.8 [facility] Comment on above: Performed By: #### C BC #### [facility] [address] [place] [address] Dr. Spencer Braun Monocytes/100 WBC (Bld) 7.1 % Normal 1.7-12.0 [facility] Comment on above: Performed By: #### C BC #### [facility] [address] [place] [address] Dr. Spencer Braun NEUT # 5.7 103/ul Normal 1.4-6.5 [facility] Comment on above: Performed By: #### C BC #### [facility] [address] [place] [address] Dr. Spencer Braun Neutrophils/100 WBC (Bld) 69.0 % Normal 43.0-75.0 [facility] Comment on above: Performed By: #### C BC #### [facility] [address] [place] [address] Dr. Spencer Braun Platelet mean volume (Bld) [Entitic vol] 9.2 fL Critically low 9.5-13.5 [facility] Comment on above: Performed By: #### C BC #### [facility] [address] [address] [address] Spencer Braun PLT 180 103/ul Normal 150-450 [facility] Comment on above: Performed By: #### C BC #### [facility] [address] [address] [address] Spencer Braun RBC 5.24 106/ul Normal 4.20-5.40 [facility] Comment on above: Performed By: #### C BC #### [facility] [address] [address] [address] Spencer Braun WBC 8.2 103/ul Normal 4.0-11.0 [facility] Comment on above: Performed By: #### C BC #### [facility] [address] [address] [address] Spencer Braun FREE T3on 04-30-2022 FREE T3 2.98 pg/mlL Normal 2.18-3.98 [facility] Comment on above: Performed By: #### L IPID, TSH, T4, FT3, CMP ####[facility] [address] [place], [place] [address]DrManish Braun GLYCOHEMOGLOBIN A1Con 2021 ADA RECOMMENDATION SEE BELOW Normal [facility] Comment on above: Result Comment: ADA RECOMMENDED LIMIT 4.0 - 6.0 ADA THERAPEUTIC TARGET < 7.0 ACTION SUGGESTED > 7.0 Performed By: #### A 1C ####[facility] [address] [address]DrManish Braun Glucose [Mass/Vol] 134 mg/dL Normal [facility] Comment on above: Performed By: #### A 1C ####[facility] [address] [address]DrManish Braun HbA1c (Bld) [Mass fraction] 6.3 % Critically high 4.5-6.2 [facility] Comment on above: Performed By: #### A 1C ####[facility] [address] [id number]. Spencer Braun LIPID PROFILEon 04-30-2022 CHOL-HDL RATIO NORM SEE BELOW Normal [facility] Comment on above: Result Comment: 3.3 - 4.4 LOW RISK 4.4 - 7.1 AVERAGE RISK 7.1 - 11.0 MODERATE RISK >11.0 HIGH RISK Performed By: #### L IPID, TSH, T4, FT3, CMP ####[facility] [address] [id number]. Spencer Braun Cholesterol [Mass/Vol] 177 mg/dL Normal <=200 [facility] Comment on above: Performed By: #### L IPID, TSH, T4, FT3, CMP ####[facility] [address] [id number]. Spencer Braun Cholesterol in HDL [Mass/Vol] 56 mg/dL Normal 40-60 [facility] Comment on above: Performed By: #### L IPID, TSH, T4, FT3, CMP ####[facility] [address] [id number]. Spencer Braun Cholesterol in LDL [Mass/Vol] 97.8 mg/dL Normal [facility] Comment on above: Performed By: #### L IPID, TSH, T4, FT3, CMP ####[facility] [address] [id number]. Spencer Braun Cholesterol.total/Ch olesterol in HDL [Mass ratio] 3.2 {ratio} Normal [facility] Comment on above: Performed By: #### L IPID, TSH, T4, FT3, CMP ####[facility] [address] [id number]. Spencer Braun HDL NORMAL > or = 60 mg/dl - LOW CARDIOVASCULAR RISK <40 mg/dl - HIGH CARDIOVASCULAR RISK Normal [facility] Comment on above: Performed By: #### L IPID, TSH, T4, FT3, CMP ####[facility] [address] [id number]. Spencer Braun LDL CALC NORMAL SEE BELOW Normal [facility] Comment on above: Result Comment: <100 mg/dl OPTIMAL 100 - 129 mg/dl NEAR OR ABOVE OPTIMAL 130 - 159 mg/dl BORDERLINE HIGH 160 - 189 mg/dl HIGH >190 mg/dl VERY HIGH Performed By: #### L IPID, TSH, T4, FT3, CMP ####[facility] [address] [address]Dr. Spencer Braun Triglyceride [Mass/Vol] 116 mg/dL Normal <=150 [facility] Comment on above: Performed By: #### L IPID, TSH, T4, FT3, CMP ####[facility] [address] [address]Dr. Spencer Braun VLDL CALC 23.2 mg/dL Normal [facility] Comment on above: Performed By: #### L IPID, TSH, T4, FT3, CMP ####[facility] [address] [address]Dr. Spencer Braun PROF 14(COMP METB)on 022 Albumin [Mass/Vol] 3.8 g/dL Normal 3.4-5.0 [facility] Comment on above: Performed By: #### L IPID, TSH, T4, FT3, CMP ####[facility] [address] [address]Dr. Spencer Braun Albumin/Globulin [Mass ratio] 0.9 {ratio} Normal [facility] Comment on above: Performed By: #### L IPID, TSH, T4, FT3, CMP ####[facility] [address] [address]Dr. Spencer Braun ALP [Catalytic activity/Vol] 143 U/L Critically high 46-116 [facility] Comment on above: Performed By: #### L IPID, TSH, T4, FT3, CMP ####[facility] [address] [address]Dr. Spencer Braun ALT [Catalytic activity/Vol] 19 U/L Normal 14-59 [facility] Comment on above: Performed By: #### L IPID, TSH, T4, FT3, CMP ####[facility] [address] [address]Dr. Spencer Braun Anion gap [Moles/Vol] 12.1 mmol/L Normal [facility] Comment on above: Performed By: #### L IPID, TSH, T4, FT3, CMP ####[facility] [address] [address]Dr. Spencer Braun AST [Catalytic activity/Vol] 17 U/L Normal 15-37 [facility] Comment on above: Performed By: #### L IPID, TSH, T4, FT3, CMP ####[facility] [address] [address]Dr. Spencer Braun Bilirubin [Mass/Vol] 0.3 mg/dL Normal 0.2-1.0 [facility] Comment on above: Performed By: #### L IPID, TSH, T4, FT3, CMP ####[facility] [address] [place], [place] [address]Dr. Spencer Braun Calcium [Mass/Vol] 9.5 mg/dL Normal 8.5-10.1 [facility] Comment on above: Performed By: #### L IPID, TSH, T4, FT3, CMP ####[facility] [address] [address]Dr. Spencer Braun Chloride [Moles/Vol] 102 mmol/L Normal 98-107 [facility] Comment on above: Performed By: #### L IPID, TSH, T4, FT3, CMP ####[facility] [address] [address]Dr. Spencer Braun CO2 [Moles/Vol] 32.6 mmol/L Critically high 21.0-32.0 [facility] Comment on above: Performed By: #### L IPID, TSH, T4, FT3, CMP ####[facility] [address] [address]Dr. Spencer Braun Creatinine [Mass/Vol] 0.69 mg/dL Normal 0.55-1.02 [facility] Comment on above: Performed By: #### L IPID, TSH, T4, FT3, CMP ####[facility] [address] [address]Dr. Spencer Braun EGFR-AF IVORIAN >60 Normal >=60 [facility] Comment on above: Performed By: #### L IPID, TSH, T4, FT3, CMP ####[facility] [address] [address]Dr. Spencer Braun EGFR-NON AF IVORIAN >60 Normal >=60 [facility] Comment on above: Performed By: #### L IPID, TSH, T4, FT3, CMP ####[facility] [address] [address]Dr. Spencer Braun Globulin (S) [Mass/Vol] 4.1 g/dL Normal [facility] Comment on above: Performed By: #### L IPID, TSH, T4, FT3, CMP ####[facility] [address] [place], [place] [address]Dr. Spencer Braun Glucose [Mass/Vol] 108 mg/dL Critically high 74-106 [facility] Comment on above: Performed By: #### L IPID, TSH, T4, FT3, CMP ####[facility] [address] [place], [place] [address]Dr. Spencer Braun Potassium [Moles/Vol] 4.7 mmol/L Normal 3.5-5.1 [facility] Comment on above: Performed By: #### L IPID, TSH, T4, FT3, CMP ####[facility] [address] [address]Dr. Spencer Braun Protein [Mass/Vol] 7.9 g/dL Normal 6.4-8.2 [facility] Comment on above: Performed By: #### L IPID, TSH, T4, FT3, CMP ####[facility] [address] [place], [place] [address]Dr. Spencer Braun Sodium [Moles/Vol] 142 mmol/L Normal 136-145 [facility] Comment on above: Performed By: #### L IPID, TSH, T4, FT3, CMP ####[facility] [address] [address]Dr. Spencer Braun Urea nitrogen [Mass/Vol] 19.0 mg/dL Critically high 7.0-18.0 [facility] Comment on above: Performed By: #### L IPID, TSH, T4, FT3, CMP ####[facility] [address] [address]Dr. Spencer Braun Urea nitrogen/Creatinine [Mass ratio] 27.5 mg/mg Normal [facility] Comment on above: Performed By: #### L IPID, TSH, T4, FT3, CMP ####[facility] [address] [address]Dr. Spencer Braun T4on 04-30-2022 T4 [Mass/Vol] 8.30 ug/dL Normal 4.80-13.90 [facility] Comment on above: Performed By: #### L IPID, TSH, T4, FT3, CMP ####[facility] [address] [address]Dr. Spencer Braun TSHon 04-30-2022 TSH 1.777 uIU/mL Normal 0.358-3.740 [facility] Comment on above: Performed By: #### L IPID, TSH, T4, FT3, CMP ####[facility] [address] [address]Dr. Spencer Braun VITAMIN D 25 OHon 04-30-2022 VIT D 25-OH 72.1 ng/mL Normal [facility] Comment on above: Performed By: #### V ITAD #### [facility] [address] [address] [address] Spencer Braun VIT D RANGES SEE BELOW Normal [facility] Comment on above: Result Comment: <20 ng/mL Vit D deficient 20 - <30 ng/mL Vit D insufficient 30 - 100 ng/mL Vit D sufficient >100 ng/mL Potential Toxicity Performed By: #### V ITAD #### [facility] [address] [address] [address] Spencer Braun MG MAMM SCREEN 3D AWAIS CADon 02-16-2022 MG MAMM SCREEN 3D AWAIS CAD Patient: BETH STARKEY Exam Date: 02/16/2022 : 1940 Gender:F Ordering : DR MARCK TATE . Admission #: [id number] Family : Order #: [id number] CLICK HERE TO VIEW EXAM RADIOLOGY REPORT [...] prostate cancer at age 71. LOCATION: [facility] BREAST COMPOSITION: Heterogeneously dense,which may obscure [...] MD on 02/17/2022 at 07:39 Normal [facility] Vital Signs Date Time Vital Sign Value Performing Clinician Tony jenkins 12-16-2023 15:18-0400 Diastolic blood pressure 68 mm[Hg] [employer] [facility] 12-16-2023 15:18-0400 Systolic blood pressure 118 mm[Hg] Tam Neogrowthnus [facility] 05-12-2023 10:13-0500 Diastolic blood pressure 72 mm[Hg] Sha Vallejo [facility] 05-12-2023 10:13-0500 Heart rate 94 /min Sha Vallejo [facility] 05-12-2023 10:13-0500 SaO2% (BldA) [Mass fraction] 90 % Sha Vallejo [facility] 05-12-2023 10:13-0500 Systolic blood pressure 130 mm[Hg] Sha Vallejo [facility] 05-03-2023 12:24-0500 Diastolic blood pressure 59 mm[Hg] Jena Hikcs MD Work Phone: [facility] 05-03-2023 12:24-0500 Heart rate 86 /min Jena Hicks MD Work Phone: [facility] 05-03-2023 12:24-0500 Systolic blood pressure 103 mm[Hg] Jena Hicks MD Work Phone: [facility] 05-03-2023 12:14-0500 Body height 152.4 cm Jena Hicks MD Work Phone: [facility] 05-03-2023 12:14-0500 Body temperature 98.29 [degF] Jena Hicks MD Work Phone: [facility] 05-03-2023 12:14-0500 Body weight 65.82 kg Jena Hicks MD Work Phone: [facility] 05-03-2023 12:14-0500 Respiratory rate 16 /min Jena Hicks MD Work Phone: [facility] 05-03-2023 12:14-0500 SaO2% (BldA) [Mass fraction] 93 % Jena Hicks MD Work Phone: [facility] 09-06-2022 09:39-0400 Blood Pressure Location Dayron Jorgensen [facility] 09-06-2022 09:39-0400 Diastolic blood pressure 81 mm[Hg] Dayron Jorgensen [facility] 09-06-2022 09:39-0400 Heart rate 103 /min Dayron Jorgensen [facility] 09-06-2022 09:39-0400 SaO2% (BldA) [Mass fraction] 90 % Dayron Jorgensen [facility] 09-06-2022 09:39-0400 Systolic blood pressure 126 mm[Hg] Dayron Jorgensen [facility] Encounters Encounter Date Encounter Type Care Provider Facility Start: 01-09-2024 End: 01-10-2024 ambulatory [facility] Start: 12-16-2023 End: 12-17-2023 Pre-admission assessment Tam Vallejo [facility] Start: 12-16-2023 End: 12-16-2023 ambulatory MD Tam Vallejo Facility:[facility] Start: 11-09-2023 End: 11-09-2023 ambulatory FORREST SALAZAR Not Available Start: 05-30-2023 End: 05-30-2023 ambulatory FORREST SALAZAR Not Available Start: 05-12-2023 End: 05-12-2023 ambulatory Sha Vallejo Facility:[facility] Start: 05-12-2023 End: 05-12-2023 Patient encounter procedure Sha Vallejo [facility] Start: 05-04-2023 Orders Only Jena Hicks MD Work Phone: [facility] Comment on above: 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); Bilateral carotid artery stenosis; Other disorders of arteries, arterioles and capillaries in diseases classified elsewhere (HCC) Start: 05-03-2023 End: 05-03-2023 ambulatory JENA HICKS Facility:[facility] Start: 05-03-2023 End: 05-03-2023 Office outpatient visit 25 minutes Jena Hicks MD Work Phone: [facility] Comment on above: 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) Start: 04-26-2023 Orders Only Jena Hicks MD Work Phone: [facility] Comment on above: Chest pain, unspecif ied type (Primary Dx) Start: 04-25-2023 Telephone encounter No 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 Comment on above: Appointment Start: 04-22-2023 Telephone encounter No One (Historic al) Referring Physician Comment on above: External Referrals/r esources Start: 04-20-2023 End: 04-20-2023 ambulatory FORREST SALAZAR Not Available Start: 03-23-2023 End: 03-23-2023 ambulatory Sha Vallejo Facility:[facility] Start: 03-23-2023 End: 03-23-2023 Patient encounter procedure Sha Vallejo [facility] Start: 01-20-2023 End: 01-20-2023 ambulatory Sha Vallejo Facility:[facility] Start: 01-20-2023 End: 01-20-2023 Patient encounter procedure Sha Vallejo [facility] Start: 09-24-2022 End: 09-24-2022 Patient encounter procedure Dayron Jorgensen [facility] Start: 09-06-2022 End: 09-06-2022 Patient encounter procedure Dayron Jorgensen [facility] Start: 08-02-2022 End: 08-03-[address] MARCK TTAE . Facility: Start: 07-28-2022 End: 07-28-[address] MARCK TATE . Facility:[facility] Start: 07-14-2022 End: 07-15-[address] MARCK TATE . Facility:[facility] Start: 04-30-2022 End: 05-01-[address] MARCK TATE . Facility:[facility] Start: 02-16-2022 End: 02-17-[address] MARCK TATE . Facility: Start: 06-17-2017 End: 06-18-2017 Ambulatory DEFAULT PHYSICIAN [facility] Plan of Treatment Date Care Activity Detail Author Start: 07-04-2029 Urine microalbumin profile DTaP,Tdap,Td Vaccine (2 - Td or Tdap) [facility] Start: 01-21-2023 Influenza vaccination Influenza Vacc ine (#1) [facility] Start: 05-23-2022 Advance Directive Discussion Advance Directive Discussion [facility] Start: 05-23-2022 Depression Assessment Depression Ass essment [facility] Start: 05-18-2017 Pneumococcal Vaccine : 65+ (2 - PPSV23 or PCV20) Pneumococcal Vaccine: 65+ (2 - PPSV23 or PCV20) [facility] Start: 2006 Bone Density Screening Bone Density Screening [facility] Start: 2006 Pneumococcal Vaccine : 65+ (1 - PCV) Pneumococcal Vaccine: 65+ (1 - PCV) [facility] Start: 2006 Screening for osteoporosis Bone Density Screening [facility] Start: 2001 RSV Vaccine (1 - 1-d ose 60+ series) RSV Vaccine (1 - 1-dose 60+ series) [facility] Start: 1991 Shingrix Vaccine (1 of 2) Shingrix Vaccine (1 of 2) [facility] Start: 1986 Diabetes Screening Diabetes Screenin g [facility] Start: 1940 Covid-19 Vaccine (#1) Covid-19 Vacci ne (#1) [facility] End: 05-25-2024 Ct angio abd&plvis cntrst mtrl w/wo cntrst img CTA ABD/PEL WO/W IVCON Radiology Routine Chest pain, unspecified type 1 Occurrences starting 04/26/2023 until 05/25/2024 [facility] Work Phone: Comment on above: 1 Occurrences starti ng 04/26/2023 until 05/25/2024 End: 06-02-2024 Ct angio abd&plvis cntrst mtrl w/wo cntrst img CTA ABD/PEL WO/W IVCON Radiology Routine 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 Occurrences starting 05/04/2023 until 06/02/2024 [facility] Work Phone: Comment on above: 1 Occurrences starti ng 05/04/2023 until 06/02/2024 End: 05-25-2024 Ct angiography chest w/contrast/noncontrast CTA CHEST (NONGATED) WO/W IVCON Radiology Routine Chest pain, unspecified type 1 Occurrences starting 04/26/2023 until 05/25/2024 [facility] Work Phone: Comment on above: 1 Occurrences starti ng 04/26/2023 until 05/25/2024 End: 06-02-2024 Ct angiography chest w/contrast/noncontrast CTA CHEST (NONGATED) WO/W IVCON Radiology Routine 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 Occurrences starting 05/04/2023 until 06/02/2024 [facility] Work Phone: Comment on above: 1 Occurrences starti ng 05/04/2023 until 06/02/2024 End: 05-04-2024 PVR ANK/HILL/TOE AWAIS VAS LAB PVR ANK/HILL/TOE AWAIS VAS LAB Vascular Lab Routine 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) Other disorders of arteries, arterioles and capillaries in diseases classified elsewhere (HCC) 1 Occurrences starting 05/04/2023 until 05/04/2024 [facility] Work Phone: Comment on above: 1 Occurrences starti ng 05/04/2023 until 05/04/2024 End: 05-04-2024 US CAROTID ARTERIES AWAIS VAS LAB US CAROTID ARTERIES AWAIS [facility]AS LAB Vascular Lab Routine Bilateral carotid artery stenosis 1 Occurrences starting 05/04/2023 until 05/04/2024 [facility] Work Phone: Comment on above: 1 Occurrences starti ng 05/04/2023 until 05/04/2024 [facility] Payers Date Payer Category Payer [employer] ( [employer] others) [id number] 2006 Medicare MEDICARE MEDICAR E A AND B [id number] 2006-Present [phone] [facility] [place] [address] Medicare [id number] 1959 [employer] ( and others) [id number] 1959 Medicare [id number] 1940 Unknown [id number] [id number]. 2.593 1940 Unknown [id number] 2.16.840.1.695754.3.579. 2.593 1940 Unknown [id number] 2.16.840.1.133389.3.579. 2.593 1940 Unknown [id number] 2.16.840.1.775517.3.579. 2.593 1940 Unknown [id number] 2.16.840.1.319090.3.579. 2.593 1940 Unknown [id number] 2.16.840.1.532739.3.579. 2.1259 1940 Unknown [id number] 2.16.840.1.607617.3.579. 2.1259 1940 Unknown [id number] 2.16.840.1.731760.3.579. 2.1259 1940 Unknown [id number] 2.16.840.1.923621.3.579. 2.727 1940 Unknown [id number] 2.16.840.1.126347.3.579. 2.727 1940 Unknown [id number] 2.16.840.1.492147.3.579. 2.727 1940 Unknown [id number] 2.16.840.1.940298.3.579. 2.727 Unknown Social History Date Type Detail Facility Start: 09-06-2022 End: 12-16-2023 Tobacco smoking status Heavy tobacco smoker (finding) [facility] Start: 05-03-2023 Sex Assigned At Female F [facility] Tobacco smoking stat [facility] Tobacco smoking consumption unknown [facility] Start: 1940 Sex Assigned At Not on file C [facility] Start: 05-23-1956 Tobacco smoking stat [facility] [facility] Smokes tobacco daily [facility] Start: [birth year]-23-1955 History of tobacco use Cigarette Smo ker [facility] Start: 05-03-2023 Cigarettes smoked current (pack per day) - Reported 1.5 [facility] Start: 05-03-2023 Tobacco use and exposure Smokeless tobacco non-user [facility] Start: 05-03-2023 Alcohol intake Current drinke r of alcohol (finding) [facility] National Score (1-10 0), lower number is lower risk 87 [facility] Start: 05-03-2023 Alcohol Comment football season [facility] Functional Status Date Assessment Result Facility 12-16-2023 Functional Status N/A [facility] 05-12-2023 Functional Status N/A [facility] 09-06-2022 Functional Status No [facility] Clinical Notes 03-21-2023 to 01-09-2024 Jena Hicks [...] status post stent placement in 1995 at [facility], 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 [facility] 05-26-2023 Note Patient Outreach ( [facility]) BETH STARKEY ([id number]) 1940 F Date Time Provider Department 05/26/23 [...] and brochure sent Lung Nodule Program Location: [facility] As of Date: 05/26/2023 (No Known [...] Encounter Status:Closed by EVANGELINA BURNETT on 05/26/23 [facility] 05-26-2023 Note HNO ID: [id number] Author: ?, ?, ? Service: ? Author [...] and brochure sent Lung Nodule Program Location: [facility] 05-18-2023 Note Patient Outreach ([facility]) BETH STARKEY ([id number]) 1940 F Date Time Provider Department 05/18/23 CROW BELLOSteven During your visit today, we recorded the following information about you: Crow Bello APRN.TECHNICAL SERVICES CONSULTANT 05/18/2023 11:12 AM Signed Incidental Lung Nodule Enrollment Outreach attempt: 1st Attempt Outreach status: Complete Enrolled in Lung Nodule program: Referred Lung Nodule outreach: No outreach - Very small nodule, letter and brochure sent Lung Nodule Program Location: [facility] As of Date: 05/18/2023 (No Known [...] Encounter Status:Closed by CROW BELLO on 05/18/23 [facility] 12-27-2023 Note HNO ID: [id number] Author: Crow Bello APRN.JAYDEN Service: ? Author Type: Nurse Practitioner Type: Progress Notes Filed: 05/18/2023 11:12 AM Note Text: Incidental Lung Nodule Enrollment Outreach attempt: 1st Attempt Outreach status: Complete Enrolled in Lung Nodule program: Referred Lung Nodule outreach: No outreach - Very small nodule, letter and brochure sent Lung Nodule Program Location: [facility] 05-03-2023 Note HNO ID: [id number] Author: Nadine Cummins RN Service: Radiology Author [...] DATE: May 03, 2023 TIME: 1:00 PM [facility] 05-03-2023 Note HNO ID: [id number] Author: Kandy Aragon RT(Gilberto) Service: Radiology Author [...] RT Tess(R) May 03, 2023 1:19 PM [facility] 05-03-2023 History and physical note Heart , Vascular and Thoracic [place] DEPARTMENT OF VASCULAR SURGERY OUTPATIENT VISIT DATE [...] 4 - Moderate documented in this encounter [facility] 04-25-2023 Miscellaneous Notes Reason for call: Ms Starkey called,and she would like to schedule an appointment with vascular surgery Referred by Dr Judit [facility] and cell number: [phone] Diagnosis: AAA Kind Regards Jaelynn documented in this encounter [facility] 04-22-2023 Miscellaneous Notes Patient: Beth Starkey Date of : 1940 Patient phone number: [phone] Referring Provider for the encounter: Marck Tate MD Requesting Provider: N/A Reason for requesting visit (RFV/signs and symptoms/diagnosis): Sent Telephone Encounter - updated tracking. Person calling: caregiver: Patrizia Return call to: self Medical Records/Insurance Card scanned into Epic: Yes Comments: N/A documented in this encounter [facility] 03-23-2023 Evaluation + Plan note Diagnostic Tests PendingCreatinine 03/23/23 Future Scheduled TestsCTA Abd Aorto-bilat/ iliofemoral runoff 03/22/23 [facility] 03-22-2023 Evaluation + Plan note Future Scheduled TestsCTA Abd Aorto-bilat/ iliofemoral runoff 03/22/23 [facility] 03-21-2023 Note History of Present I llness [...] 6 cm. 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 She denies chest pain or dyspnea. She does have some dyspnea on exertion. Beth Starkey has a history of 2 stents placed in her heart by Dr. Wells at [place]. Review of Systems Constitutional: no fever, no [...] with voice recognition artificial intelligence software, specifically [employer], [employer] and or [employer]. Substitutions may have occurred with voice recognition and artificial intelligence software. ATTESTATION: Documentation services were performed after patient or guardian consented to allow [employer] to record this visit. SANTOS social services specialist and provider reviewed before signing. SANTOS: [...] heart failure: Mother. Brenda Gehrig's disease: Father. [facility] Comment on above: Result Comment: Elec tronically Signed By: Genevieve CURRIE, Sha Bustos\.br\Date and Time Signed: 03/21/23 11:20 EDT\.br\Electronically Co-Signed By: Beth Sanders\.br\Date and Time Co-Signed: 01/20/23 12:18 EDT Evaluation + Plan note Future Appointments Appointment Date:10/11/2022 10:00:00 AM Scheduled Provider:Dayron Jorgensen MD Location:[facility] Appointment Type:Vascular Follow Up ([facility]) Future Scheduled TestsCTA Abdomen and Pelvis 09/06/22CTA Chest 09/06/22 [facility] Evaluation + Plan note Future Appointments Appointment Date:10/11/2022 10:00:00 AM Scheduled Provider:Dayron Jorgensen MD Location:[facility] Appointment Type:Vascular Follow Up (FT) [facility] Evaluation + Plan note Future Scheduled TestsCTA Abd Aorto-bilat/ iliofemoral runoff 03/22/23 [facility] Evaluation + Plan note Future Appointments Appointment Date:06/18/2024 09:45:00 AM Scheduled Provider:Tam Vallejo MD Location[facility] [place] Appointment Type:Cardiology Follow Up (FT) Future Scheduled TestsCTA Abd Aorto-bilat/ iliofemoral runoff 03/22/23 [facility] Evaluation note Diagnosis Chest pain, unspecified type- Primary [facility] Diagnosis 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 documented in this encounter [facility] note* Diagnosis 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 Bilateral carotid artery stenosis Occlusion and stenosis of carotid artery without mention of cerebral infarction Other disorders of arteries, arterioles and capillaries in diseases classified elsewhere (HCC) documented in this encounter [facility] course Narrative No data available for this section [facility] Dis[facility] instructions No data available for this section [facility] No data available for this section [facility] Outpatient Procedure (Routine) - Authorized Specialty Diagnoses / Procedures Referred By Manjula jovel Referred [facility] Diagnoses 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) Procedures CTA ABD/PEL WO/W IVCON CT ANGIO ABD&PLVIS CNTRST MTRL W/WO CNTRST IMGES Jena Hicks MD [address] [place] [address] Ct [facility] [place] [address] Referral ID Status Reason Start Date Expiration Date Visits Requested Visits Authorized [id number] Authorized Auto-Generat ed Referral 3 06/02/2024 1 1 * MRI/CT (Routine) - Authorized Specialty Diagnoses / Procedures Referred By Manjula jovel Referred To Contact CT IMAGING Diagnoses 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) Procedures CTA CHEST (NONGATED) WO/W IVCON CT ANGIOGRAPHY CHEST W/CONTRAST/NONCONTRAST Jena Hicks MD [address] [place] [address] [address] [facility] [place] [address] Referral ID Status Reason Start Date Expiration Date Visits Requested Visits Authorized [id number] Authorized Auto-Generat ed Referral 3 06/02/2024 1 1 * Outpatient Procedure (Routine) - Authorized Specialty Diagnoses / Procedures Referred By Manjula jovel Referred [facility] Diagnoses Bilateral carotid artery stenosis Procedures US CAROTID ARTERIES AWAIS VAS LAB DUPLEX SCAN EXTRACRANIAL ART COMPL BI STUDY Jena Hicks MD [address] [place] [address] [facility] [place] [address] [place] [address] Referral ID Status Reason Start Date Expiration Date Visits Requested Visits Authorized [id number] Authorized Auto-Generat ed Referral 3 05/03/2024 1 1 [facility] Summary Purpose Family History No Family [...] CNTRST MTRL W/WO CNTRST Jena Todd MD [address] [place] [address] Ct [facility] [place] [address] Referral ID Status Reason Start Date Expiration Date Visits Requested Visits Authorized [id number] Authorized Auto-Generat ed Referral 04/26/2023 05/25/2024 1 1 Specialty Diagnoses / Procedures Referred By Contac t Referred To Contact CT IMAGING Diagnoses Chest pain, unspecified type Procedures CTA CHEST (NONGATED) WO/W IVCON CT ANGIOGRAPHY CHEST W/CONTRAST/NONCONTRAST Jena Hicks MD [address] [email or web address] [address] Ct [facility] [place] [address] Referral ID Status Reason Start Date Expiration Date Visits Requested Visits Authorized [id number] Authorized Auto-Generat ed Referral 04/26/2023 05/25/2024 1 1 Additional Source Comments INFORMATION SOURCE (unrecogn ized section and content) DATE CREATED AUTHOR 11/14/2017 [facility] DATE CREATED AUTHOR AUTHOR'S ORGANIZ ATION 08/09/2022 [facility] DATE CREATED AUTHOR AUTHOR'S ORGANIZ ATION 05/27/2023 [facility] DATE CREATED AUTHOR AUTHOR'S ORGANIZ ATION 11/11/2023 [facility] EPIC DATE CREATED AUTHOR AUTHOR'S ORGANIZ ATION 12/29/2023 [facility] DATE CREATED AUTHOR AUTHOR'S ORGANIZ ATION 01/10/2024 [facility] Patient Care team informatio n (unrecognized section and content) Binding Nicker Relationship Specialty Start Date End Date Marck Tate MD [address] [place] [id number] [facility] 04/22/23 Binding Nicker Relationship Specialty Start Date End Date Marck Tate MD [address] [place] [address] [facility] 04/22/23 Binding Nicker Relationship Specialty Start Date End Date Marck Tate MD [address] [place] [address] [facility] 04/22/23 Binding Nicker Relationship Specialty Start Date End Date Marck Tate MD [address] [place] [address] [facility] 04/22/23 Source Comments (unrecognize d section and content) In the event this informatio n is protected by the Federal Confidentiality of Alcohol and Drug Abuse Patient Records regulations: The Federal rules restrict any use of the information to criminally investigate or prosecute any alcohol or drug abuse patient.[facility] the event this information is protected by the Federal Confidentiality of Alcohol and Drug Abuse Patient Records regulations: The Federal rules restrict any use of the information to criminally investigate or prosecute any alcohol or drug abuse patient.[facility] HospitalIn the event this information is protected by the Federal Confidentiality of Alcohol and Drug Abuse Patient Records regulations: The Federal rules restrict any use of the information to criminally investigate or prosecute any alcohol or drug abuse patient.[facility] HospitalIn the event this information is protected by the Federal Confidentiality of Alcohol and Drug Abuse Patient Records regulations: The Federal rules restrict any use of the information to criminally investigate or prosecute any alcohol or drug abuse patient.[facility] HospitalIn the event this information is protected by the Federal Confidentiality of Alcohol and Drug Abuse Patient Records regulations: The Federal rules restrict any use of the information to criminally investigate or prosecute any alcohol or drug abuse patient.[facility] Reason for Visit (unrecogniz ed section [...] BE BASED ON THE PRIMARY CLINICAL RECORDS. [facility] [employer] [facility]. provides no warranty or guarantee of the accuracy or completeness of information in this document.
--- NOTE | 2024-01-17 08:00 | NM_ITS ---
Patient Name: ADELA PARDO MR#: [id number] : 1940 Exam Date: 01/17/2024 Ordering Doctor: DR. CALE HOPE M.D. RADIOLOGY REPORT PROCEDURE: NM BOB PERF SPECT REST OR STR COMPARISON: NM BOB PERF SPECT REST OR STR, 01/02/2024. INDICATIONS: DYSPNEA ON EXERTION, FATIGUE TECHNIQUE: Exam Description: Stress Only two day protocol gated SPECT Rest Imagin.3 mCi Tc-99m Cardiolite IV on 01/02/2024 Stress Imaging 23.6 mCi Tc-99m Cardiolite IV on 01/17/2024 Exercise Protocol: 0.4 mg Lexiscan given IV Heart Rate (bpm): Rest: 83 Max: 95 PMHR: 65 Blood Pressure: Rest: 122/80 Max: 122/80 Symptoms: Rest and peak stress ECG findings were normal and the exercise portion of the study was normal per attending physician Dr. Chowdary . For more details please see separate cardiac stress test report. FINDINGS: QUALITY OF STUDY: Good. PERFUSION DEFECT: LOCATION: Basal inferoseptal. Basal inferior. Basal inferolateral. Mid-inferoseptal. Mid-inferior. Mid-inferolateral. Apical inferior. SIZE: Large (5 or more segments). SEVERITY: Moderate. TYPE: Mixed. WALL MOTION: Moderate hypokinesis: Basal inferoseptal. Basal inferior. Basal inferolateral. Mid-inferoseptal. Mid-inferior. Mid-inferolateral. LV SIZE: Normal. 57 mL. TID / TCD: None; 0.7 LVEF: Abnormal. Calculated EF 46%. SUMMARY: Myocardial perfusion imaging study has ABNORMAL findings. CONCLUSION: 1. Large area moderate to severe transmural decreased uptake in the inferior wall primarily RCA distribution with partial redistribution suggesting an area of significant reversible ischemia. Further evaluation is recommended 2. Low left ventricular ejection fraction of 46% 3. Normal exercise test Dictated by: Richard Encarnacion MD on 01/19/2024 at 07:52 Approved by: Richard Encarnacion MD on 01/19/2024 at 07:56
[2024-01-17] MEDS: REGADENOSON 0.4 MG/5 ML SYRINGE IV (09:56)
== END 2024-01-17 07:11 | disposition home or self-care (01) ==
LOC: CARD 07:10
PROVIDERS: PCP Family Medicine; Visit Provider Internal Medicine Cardiovascular Disease
DX: R06.09 Other forms of dyspnea (principal)
CPT/HCPCS: 78451; 93017; A9500; J2785

== ENCOUNTER 2024-01-20 15:41 | Emergency (ER) | payer MEDICARE, OTHER, SELFPAY ==
[2024-01-20 15:52] VITALS: BP 87/58; PULSE 79; TEMP 36.6; O2SAT 92; BMI 29.1
--- NOTE | 2024-01-20 16:12 | XR_ITS ---
The [place] [id number] Patient Name: ADELA PARDO MRN: [id number] date: 1940 Sex: F Assigned Patient Location: ED.MAIN Current Patient Location: ER Accession/Order Number: [id number] Exam Date: 01/20/2024 16:38 Report Date: 01/20/2024 17:03 At the request of: RAINA DUARTE Procedure: XR knee RT 3V EXAM: XR knee RT 3V HISTORY: fall COMPARISON: None. TECHNIQUE: 3 views of the right knee. FINDINGS: Bones: There is a displaced fracture of patella with 0.5 cm gap between the fracture fragments. No aggressive appearing bony lesion. Joints: No dislocation. There is moderate knee joint effusion.Moderate tricompartmental osteoarthritis. Soft tissues: Unremarkable. XR/XR knee RT 3V IMPRESSION: a displaced fracture of patella with 0.5 cm gap between the fracture fragments. No dislocation. Moderate knee joint effusion. Electronically authenticated by: FE JENNINGS Date: 01/20/2024 17:03
--- NOTE | 2024-01-20 16:12 | CT_ITS ---
The [address] [address] Patient Name: ADELA PARDO MRN: [id number] date: 1940 Sex: F Assigned Patient Location: ED.MAIN Current Patient Location: ER Accession/Order Number: [id number] Exam Date: 01/20/2024 16:38 Report Date: 01/20/2024 17:13 At the request of: RAINA DUARTE Procedure: CT chest wo con EXAMINATION: CT chest wo con, 01/20/2024 3:38 PM CDT HISTORY: fall right lower rib pain. COMPARISON: Chest CT 12/23/2023. CT angiogram abdomen pelvis runoff 03/25/2023. TECHNIQUE: CT scan of the chest was performed without IV contrast. CT dose reduction technique was used, including Automated Exposure Control. FINDINGS: Lungs/pleura: No consolidation or contusion or acute process. Small nodule right lower chest not as well seen without significant change. Minor linear scarring stable. No pleural effusion or pneumothorax. Mediastinum: Stable without mass or adenopathy. Calcified lymph nodes consistent with old granulomatous disease unchanged. Cardiac/vascular: Heart size prominent stable. Mild to moderate coronary calcification. No increasing pericardial effusion. Dilated aorta 5.4 cm transverse diameter epigastric area unchanged. Prominent abdominal aorta also stable. No periaortic fluid or hematoma. MUSCULOSKELETAL: Negative for rib fracture or healing fracture. No fracture elsewhere.. Degenerative changes throughout the thoracic spine. No paraspinal fluid or hematoma or chest wall hematoma. No axillary or supraclavicular mass or adenopathy. CT/CT chest wo con IMPRESSION: 1. No acute right chest injury, no rib fracture lung contusion or pneumothorax. No chest wall fluid collection or hematoma. 2. Lung findings chronic stable. 3. Dilated aorta most prominent lower thoracic abdominal area unchanged. No evidence of adjacent fluid or hematoma. Electronically authenticated by: JONO SURESH Date: 01/20/2024 17:13
--- NOTE | 2024-01-20 16:18 | ED_ITS ---
HPI HPI - Fall General Chief Complaint: Fall Stated Complaint: Fall Time Seen by Provider: 01/20/24 16:05 Source: patient Mode of arrival: Wheelchair Limitations: no limitations History of Present Illness HPI Narrative: The patient was already coming to the hospital because she have to follow-up with her senior lead project manager, she mentioned that her crocs tripped her while she was in the hospital and she fell down, she did had 1 loose stool at that time and she mentioned that usually this is normal for her because of the metformin, she denies any dizziness at any time but she has been having this right knee pain as well as right ribs pain that started after she fell down This fall happened earlier today before going to the senior lead project manager office According to her the senior lead project manager recommendation was to get a cardiac cath done because of her echo result No chest pain no dizziness Related Data Home Medications ?Medication ?Instructions ?Recorded ?Confirmed albuterol sulfate 90 mcg/actuation 2 puff inhalation Q4H PRN 01/20/24 01/20/24 aerosol inhaler shortness of breath or wheezing atorvastatin 40 mg tablet 40 mg PO DAILY 01/20/24 01/20/24 cetirizine 10 mg tablet 10 mg PO DAILY 01/20/24 01/20/24 glimepiride 2 mg tablet 2 mg PO DAILY 01/20/24 01/20/24 levofloxacin 750 mg tablet 750 mg PO DAILY 01/20/24 01/20/24 lisinopril 40 mg tablet 40 mg PO DAILY 01/20/24 01/20/24 metformin 500 mg tablet 500 mg PO BID 01/20/24 01/20/24 metoprolol succinate 25 mg 25 mg PO DAILY 01/20/24 01/20/24 tablet,extended release 24 hr nitroglycerin 0.4 mg sublingual 0.4 mg sublingual Q5M PRN chest 01/20/24 01/20/24 tablet pain omeprazole 20 mg capsule,delayed 20 mg PO DAILY 01/20/24 01/20/24 release pramipexole 1 mg tablet 1 mg PO DAILY 01/20/24 01/20/24 Previous Rx's ?Medication ?Instructions ?Recorded cephalexin 500 mg capsule 500 mg PO Q12H 7 days #14 caps 01/20/24 tramadol 50 mg tablet 50 mg PO BID PRN pain #10 tabs 01/20/24 Allergies Allergy/AdvReac Type Severity Reaction Status Date / Time No Known Drug Allergies Allergy Verified 01/20/24 15:46 Opioid HPI Opioid Management Most Recent Pain and Opioid Data: No Data to Display Review of Systems ROS Status of ROS 10 or more systems reviewed and unremark able except as noted in history and below Exam Narrative Exam Narrative: Nurses notes and vital signs reviewed and patient is not hypoxic. General: Well-appearing and in no apparent distress. Skin: Warm, dry, no pallor noted. No rash. Head: Normocephalic, atraumatic. Neck: Supple, non-tender. Eye: Pupils are equal, round and EOMI. No scleral icterus. Ears, Nose, Mouth, and Throat: TM are clear, no nasal mucosal hypertrophy. Oral mucosa is moist, no posterior oropharynx erythema, uvula is mid-line Cardiovascular: Regular Rate and Rhythm without murmur, gallop or rub. Respiratory: No accessory muscle use or respiratory distress. Lungs are clear to auscultation, no wheezing, rales or rhonchi Chest Wall: Right lower ribs tenderness and there is no ecchymosis Back: No midline thoracic or lumbar vertebral tenderness. No CVA tenderness Musculoskeletal: normal ROM, no calf or popliteal tenderness, small contusion to the right anterior patella there is no effusion and no ecchymosis detected, patient still have full range of movement, on the posterior aspect of the right elbow the patient have an abrasion , dried and healing and not bleeding GI: Abdomen is soft, non-distended. Normal bowel sounds. No masses appreciated. No tenderness to palpation. No rebound, guarding, or rigidity noted. Neurological: A&O x4. No cranial nerve dysfunction observed. No truncal ataxia. Moves all extremities. Sensation intact. Psychiatric: Cooperative and interactive. Normal mood and affect. Constitutional Vital Signs, click to edit/add: Last Vital Signs Temp 97.9 F 01/20/24 15:52 Pulse 79 01/20/24 15:52 Resp 24 H 01/20/24 15:52 BP 120/79 01/20/24 18:29 Pulse Ox 92 L 01/20/24 15:52 Course Vital Signs Vital signs: Vital Signs Temperature 97.9 F 01/20/24 15:52 Pulse Rate 79 01/20/24 15:52 Respiratory Rate 24 H 01/20/24 15:52 Blood Pressure 87/58 L 08/30/24 15:52 Pulse Oximetry 92 L 01/20/24 15:52 Temperature 97.9 F 01/20/24 15:52 Pulse Rate 79 01/20/24 15:52 Respiratory Rate 24 H 01/20/24 15:52 Blood Pressure 120/79 01/20/24 18:29 Pulse Oximetry 92 L 01/20/24 15:52 MDM - Fall MDM Narrative Medical decision making narrative: CBC shows no acute pathology and the chemistry shows some acute kidney injury the patient was provided IV fluid after which the blood pressure was adequately CT of the chest showed no acute pathology X-ray of the patient's right knee shows a patellar fracture that was discussed with Dr. Hancock specially with the displacement and the fact that the patient is elderly He requested that the patient had x-ray done with the knee immobilizer and further evaluation will be done Post evaluation with the immobilizer showed that the patient still need surgery as per Dr. Hancock he will follow-up with her as outpatient the patient is tolerating ambulation with immobilizer and walker Patient to follow-up with him as outpatient for further evaluation for surgery Lab Data Labs: Lab Results 01/20/24 Range/Units 16:20 WBC 9.4 (4.0-11.0) 10^3/uL RBC 4.53 (4.20-5.40) 10^6/uL Hgb 13.3 (12.0-16.0) g/dL Hct 39.8 (36.0-48.0) % MCV 87.9 (81.0-99.0) fL MCH 29.4 (26.7-34.0) pg MCHC 33.4 (29.9-35.2) g/dL RDW 14.2 (11.0-15.0) % Plt Count 165 (150-450) 10^3/uL MPV 9.4 L (9.5-13.5) fL Neut % (Auto) 76.8 H (43.0-75.0) % Lymph % (Auto) 12.4 L (20.5-60.0) % [place] % (Auto) 7.3 (1.7-12.0) % Eos % (Auto) 2.2 (0.9-7.0) % Baso % (Auto) 0.6 (0.2-2.0) % Neut # (Auto) 7.2 H (1.4-6.5) 10^3/uL Lymph # (Auto) 1.2 (1.2-3.8) 10^3/uL [place] # (Auto) 0.7 (0.3-0.8) 10^3/uL Eos # (Auto) 0.2 (0.0-0.7) 10^3/uL Baso # (Auto) 0.1 (0.0-0.1) 10^3/uL Abs Immat Gran (auto) 0.07 H (0.00-0.03) 10^3/uL Imm/Tot Granulo (auto) 0.7 H (0.0-0.5) % Sodium 140 (136-145) mmol/L Potassium 4.7 (3.5-5.1) mmol/L Chloride 104 (98-107) mmol/L Carbon Dioxide 29.0 (21.0-32.0) mmol/L Anion Gap 11.7 BUN 25.0 H (7.0-18.0) mg/dL Creatinine 1.17 H (0.55-1.02) mg/dL Est GFR ( Amer) 54 L (>=60) Est GFR (Non-Af Amer) 44 L (>=60) BUN/Creatinine Ratio 21.4 Glucose 111 H (74-106) mg/dL Calcium 9.1 (8.5-10.1) mg/dL Total Bilirubin 0.5 (0.2-1.0) mg/dL AST 13 L (15-37) U/L ALT 19 (14-59) U/L Alkaline Phosphatase 133 H (46-116) U/L Total Protein 6.8 (6.4-8.2) g/dL Albumin 3.3 L (3.4-5.0) g/dL Globulin 3.5 g/dL Albumin/Globulin Ratio 0.9 Discharge Plan Discharge Stand Alone Forms: Work/School Release, Portal Instructions Chief Complaint: Fall Clinical Impression: Patellar fracture, Fall Patient Disposition: Home, Self-Care Time of Disposition Decision: 19:40 Condition: Good Prescriptions / Home Meds: New cephalexin 500 mg capsule 500 mg PO Q12H 7 Days Qty: 14 0RF tramadol 50 mg tablet 50 mg PO BID PRN (Reason: pain) Qty: 10 0RF No Action albuterol sulfate 90 mcg/actuation HFA aerosol inhaler 2 puff INHALATION Q4H PRN (Reason: shortness of breath or wheezing) atorvastatin 40 mg tablet 40 mg PO DAILY cetirizine 10 mg tablet 10 mg PO DAILY glimepiride 2 mg tablet 2 mg PO DAILY levofloxacin 750 mg tablet 750 mg PO DAILY lisinopril 40 mg tablet 40 mg PO DAILY metformin 500 mg tablet 500 mg PO BID metoprolol succinate 25 mg tablet extended release 24 hr 25 mg PO DAILY nitroglycerin 0.4 mg tablet, sublingual 0.4 mg sublingual Q5M PRN (Reason: chest pain) pramipexole 1 mg tablet 1 mg PO DAILY omeprazole 20 mg capsule,delayed release(DR/EC) 20 mg PO DAILY Print Language: [place]ian Instructions: Patellar Fracture (ED), Knee Immobilizer (ED) Referrals: Kwame Tate MD [Primary Care Provider] - 1 week Garcia Hancock MD [Physician] - As soon as possible
--- OUTSIDE RECORDS SUMMARY | 2024-01-20 16:26 | XMS_ITS | CCD ---
Author Organization [facility] Care Team Providers Care Mechanical Test Engineer Name Role Phone PHYSICIAN, DEFAULT Unavailable Unavailable PHYSICIAN, DEFAULT Unavailable Unavailable MARCK TATE Unavailable Unavailable HOY ., DR ACHARYA Admitting Unavailable HOY ., DR ACHARYA Attending Unavailable HOY ., DR ACHARYA Primary Care Unavailable HOY ., DR ACHARYA Consulting Unavailable NOVELTY, DR SANDOVAL Ferguson Consulting Unavailable HOY ., [...] Medication Allergies] Propensity to adverse reactions (disorder) [facility] Repository Medications Current Medications Medication Drug [...] Daily, # 30 tab(s), Refills(s) 6, Pharmacy: [facility] #[id number], 152, cm, 12/16/23 15:27:00 EDT, Height/Length Dosing, [...] Daily, # 30 tab(s), Refills(s) 6, Pharmacy: [facility] #[id number], 152, cm, 12/16/23 15:27:00 EDT, Height/Length Dosing, [...] disease (4 sources) 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 Normal [facility] Heart and Vascular Office/Cl inic [...] aneurysm, without rupture, unspecified) 2. 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 HTN [...] CURRIE, Edinson Kuhn 09/24/2022 10:55 EDT Normal [facility] Comment on above: Result Comment: Elec [...] has reached out to the [facility] and has been assigned a doctor [...] her recent visit to the [facility], she was informed that her aorta [...] She had an evaluation at [facility] for her aneurysm. She also got a CT angiogram with runoff. This showed the aneurysm is 5.9 cm by testing at [place], but measured 5.3 cm. As per patient at [facility], she has an occluded right SFA, [...] with voice recognition artificial intelligence software, specifically [employer], [employer] and or [employer]. Substitutions may have occurred with voice recognition and artificial intelligence software. Documentation services were performed after patient or guardian consented to allow [employer] to record this visit. SANTOS child protective services specialist and provider reviewed before signing. [...] No Known Medicat (more content not included)... [facility] Comment on above: Result Comment: Elec tronically Signed By: Genevieve CURRIE, Sha Bustos\.br\Date and Time Signed: 05/29/23 20:33 EST\.br\Electronically Co-Signed By: Annmarie Mccray\.br\Date and Time Co-Signed: 05/12/23 12:52 EST Physician Orderon 05-13-2023 Physician Order [id number] 5#1.00TIFF [facility] CNOVon 05-03-2023 CNOV Office Visit (GIOVANIN) BETH STARKEY ([id number]) 1940 F Date Time Provider Department 05/03/23 12:00 PM JENA HICKS During your visit today, we recorded the following information about you: Temperature Pulse Respiration Blood pressure 98.3 degrees 86/minute 16/minute 103/59 Weight Height 65.8 kg 1.524 m Jena Hicks MD 05/03/2023 3:31 PM Signed [facility] [place] DEPARTMENT OF VASCULAR SURGERY OUTPATIENT VISIT DATE [...] PHYSICAL E (more content not included)... Normal [facility] CTA ABD/PELV WO/W IVCONon CTA ABD/PELV WO/W IVCON * * *Final Report* * * DATE OF EXAM: May 03 2023 1:27PM [facility] 0467 - CTA ABD/PELV WO/W IVCON / [...] stable BONES: degenerative changes of the spine Resource Room Teacher (topogram) images: No additional findings. IMPRESSION: [...] (more content not included)... Invalid Interpretation Code [facility] CTA CHEST (NONGATED) WO/W IV CONon 05-03-2023 CTA CHEST (NONGATED) WO/W IVCON * * *Final Report* * * DATE OF EXAM: May 03 2023 1:27PM [facility] 0124 - CTA CHEST (NONGATED) WO/W IVCON [...] stable BONES: degenerative changes of the spine Resource Room Teacher (topogram) images: No additional findings. IMPRESSION: [...] (more content not included)... Invalid Interpretation Code [facility] HISTORY PHYSICALon HISTORY PHYSICAL HNO ID: [id number] Author: Jena Hicks MD Service: ? Author Type: Physician Type: HANDP Filed: 05/03/2023 3:31 PM Note Text: [facility] [place] DEPARTMENT OF VASCULAR SURGERY OUTPATIENT VISIT DATE [...] EOM, pupils (more content not included)... Normal [facility] 04-25-2023 CNPN Telephone (PODCCP) BETH STARKEY ([id number]) 1940 F Date Time Provider Department 04/25/23 NO PCP PODCCP During your visit today, we recorded the following information about you: Alondra Quiros 04/25/2023 4:23 PM Signed Reason for call: Ms Starkey called,and she would like to schedule an appointment with vascular surgery Referred by Dr Judit [facility] and cell number: [phone] Diagnosis: AAA Kind Regards Alondra Allergies As of Date: 04/25/2023 (Not on File) Date Reviewed: Never Reviewed Reason for Visit: Appointment [186] Problem List As Of Date: 04/25/2023 (None) Encounter Status:Closed by ALONDRA QUIROS on 04/25/23 [facility] 04-22-2023 CNPN Telephone (REFPHY) BETH STARKEY ([id number]) 1940 F Date Time Provider Department 04/22/23 NO ONE (HISTORICAL) REFPHY During your visit today, we recorded the following information about you: Patrizia Orozco 04/22/2023 10:06 AM Signed Patient: Beth Starkey Date of : 1940 Patient phone number: [phone] Referring Provider for the encounter: Marck Tate MD Requesting Provider: N/A Reason for requesting visit (RFV/signs and symptoms/diagnosis): Sent Telephone Encounter - updated tracking. Person calling: caregiver: Patrizia Return call to: self Medical Records/Insurance Card scanned into atokore: Yes Comments: N/A Allergies As of Date: 04/22/2023 (Not on File) Date Reviewed: Never Reviewed Reason for Visit: External Referrals/resources [909] Problem List As Of Date: 04/22/2023 (None) Encounter Status:Closed by PATRIZIA OROZCO on 04/22/23 Normal [facility] Outside Radiologyon 04-20-20 23 Outside Radiology [id number] #1.00TIFF [facility] Consent for Treatmenton Consent for Treatment [id number] #1.00TIFF [facility] Lab - Otheron 03-23-2023 Lab - Other [id number] 0#1.00TIFF [facility] Physician Orderon 01-21-2023 Physician Order [id number] #1.00CD:[address] [facility] Consent for Treatmenton 12-23 Consent for Treatment [id number] 1.00CD:[address] [facility] CHEMISTRYOrdered By: SYSTEM SYSTEM on 09-24-2022 Creatinine [Mass/Vol] 0.8 mg/dL Normal 0.5 - 1.3 mg/dL [facility] Remisol GFR/1.73 sq M.predicted among non-blacks MDRD (S/P/Bld) [Vol rate/Area] 74 mL/min/1.73 m2 Normal >=59mL/min/1. 73 m2 [facility] Chem S CT CHEST WO CONon 08-02-2022 [...] Date: 2022-08-02 10:52 Normal [facility] C. DIFF PCRon 07-28-2022 C. DIFFICILE PCR Negative Normal NEGATIVE [facility] Comment on above: Performed By: #### C DIFPOC #### [facility] Laboratory [address] [address] [address] Spencer Braun OCC BLD IMMUNO SCREENon OCCULT BLOOD Negative Normal NEGATIVE [facility] Comment on above: Performed By: #### C BC #### [facility] [address] [place], [place] [address] Dr. Spencer Braun INSULINon 07-15-2022 Insulin 17.7 uIU/mL Normal 2.6-24.9 [facility] Comment on above: Performed By: #### I NSULIN ####[facility] [address] [place], [place] [address]UlDr. Spencer Braun BNPon 07-14-2022 Natriuretic peptide B (Bld) [Mass/Vol] 197.0 pg/mL Normal <=1,800.0 [facility] Comment on above: Performed By: #### B SHOE PARTS MOLDER, LIPID, CMP, T7, TSH #### [facility] [address] [address] [address] Spencer Braun CBC AUTO DIFFon 07-14-2022 BASO # 0.1 103/ul Normal 0.0-0.1 [facility] Comment on above: Performed By: #### C BC #### [facility] [address] [address] [address] Spencer Braun Basophils/100 WBC (Bld) 0.9 % Normal 0.2-2.0 [facility] Comment on above: Performed By: #### C BC #### [facility] [address] [place] [address] Dr. Spencer Braun EO # 0.2 103/ul Normal 0.0-0.7 [facility] Comment on above: Performed By: #### C BC #### [facility] [address] [address] [address] Spencer Braun Eosinophils/100 WBC (Bld) 2.5 % Normal 0.9-7.0 [facility] Comment on above: Performed By: #### C BC #### [facility] [address] [place] [address] Dr. Spencer Braun Erythrocyte distribution width (RBC) [Ratio] 13.8 % Normal 11.0-15.0 [facility] Comment on above: Performed By: #### C BC #### [facility] [address] [place] [address] Dr. Spencer Braun Hematocrit (Bld) [Volume fraction] 45.1 % Normal 36.0-48.0 [facility] Comment on above: Performed By: #### C BC #### [facility] [address] [place] [address] Dr. Spencer Braun Hemoglobin (Bld) [Mass/Vol] 14.7 g/dL Normal 12.0-16.0 [facility] Comment on above: Performed By: #### C BC #### [facility] [address] [place] [address] Dr. Spencer Braun IG # 0.04 10e3/ul Critically high 0.00-0.03 [facility] Comment on above: Performed By: #### C BC #### [facility] [address] [place] [address] Dr. Spencer Braun IG % 0.5 % Normal 0.0-0.5 [facility] Comment on above: Performed By: #### C BC #### [facility] [address] [place] [address] Dr. Spencer Braun LYMPH # 1.6 103/ul Normal 1.2-3.8 [facility] Comment on above: Performed By: #### C BC #### [facility] [address] [place] [address] Dr. Spencer Braun Lymphocytes/100 WBC (Bld) 20.4 % Critically low 20.5-60.0 [facility] Comment on above: Performed By: #### C BC #### [facility] [address] [place] [address] Dr. Spencer Braun MANUAL DIFF REQ NO Normal [facility] Comment on above: Performed By: #### C BC #### [facility] [address] [place] [address] Dr. Spencer Braun MCH (RBC) [Entitic mass] 28.8 pg Normal 26.7-34.0 [facility] Comment on above: Performed By: #### C BC #### [facility] [address] [place] [address] Dr. Spencer Braun MCHC (RBC) [Mass/Vol] 32.6 g/dL Normal 29.9-35.2 [facility] Comment on above: Performed By: #### C BC #### [facility] [address] [place] [address] Dr. Spencer Braun MCV (RBC) [Entitic vol] 88.3 fL Normal 81.0-99.0 [facility] Comment on above: Performed By: #### C BC #### [facility] [address] [address] [address] Spencer Braun MONO # 0.5 103/ul Normal 0.3-0.8 [facility] Comment on above: Performed By: #### C BC #### [facility] [address] [address] [address] Spencer Braun Monocytes/100 WBC (Bld) 6.5 % Normal 1.7-12.0 [facility] Comment on above: Performed By: #### C BC #### [facility] [address] [address] [address] Spencer Braun NEUT # 5.4 103/ul Normal 1.4-6.5 [facility] Comment on above: Performed By: #### C BC #### [facility] [address] [place] [address] Dr. Spencer Braun Neutrophils/100 WBC (Bld) 69.2 % Normal 43.0-75.0 [facility] Comment on above: Performed By: #### C BC #### [facility] [address] [place] [address] Dr. Spencer Braun Platelet mean volume (Bld) [Entitic vol] 9.1 fL Critically low 9.5-13.5 [facility] Comment on above: Performed By: #### C BC #### [facility] [address] [place] [address] Dr. Spencer Braun PLT 190 103/ul Normal 150-450 [facility] Comment on above: Performed By: #### C BC #### [facility] [address] [place] [address] Dr. Spencer Braun RBC 5.11 106/ul Normal 4.20-5.40 [facility] Comment on above: Performed By: #### C BC #### [facility] [address] [address] [address] Spencer Braun WBC 7.7 103/ul Normal 4.0-11.0 [facility] Comment on above: Performed By: #### C BC #### [facility] [address] [address] [address] Spencer Braun FREE THYROXINE INDEX T7on FTI 2.87 Normal 1.30-4.50 [facility] Comment on above: Performed By: #### B SHOE PARTS MOLDER, LIPID, CMP, T7, TSH ####[facility] [address] [address]Dr. Spencer Braun T3U 33.0 % Normal 30.0-39.0 [facility] Comment on above: Performed By: #### B SHOE PARTS MOLDER, LIPID, CMP, T7, TSH ####[facility] [address] [address]DrManish Braun T4 [Mass/Vol] 8.70 ug/dL Normal 4.80-13.90 [facility] Comment on above: Performed By: #### B SHOE PARTS MOLDER, LIPID, CMP, T7, TSH ####[facility] [address] [address]DrManish Braun GLYCOHEMOGLOBIN A1Con 2022 ADA RECOMMENDATION SEE BELOW Normal [facility] Comment on above: Result Comment: ADA RECOMMENDED LIMIT 4.0 - 6.0 ADA THERAPEUTIC TARGET < 7.0 ACTION SUGGESTED > 7.0 Performed By: #### A 1C ####[facility] [address] [address]DrManish Braun Glucose [Mass/Vol] 123 mg/dL Normal [facility] Comment on above: Performed By: #### A 1C ####[facility] [address] [address]DrManish Braun HbA1c (Bld) [Mass fraction] 5.9 % Normal 4.5-6.2 [facility] Comment on above: Performed By: #### A 1C ####[facility] [address] [address]DrManish Braun IRONon 07-14-2022 Iron [Mass/Vol] 70.0 ug/dL Normal 50.0-170.0 [facility] Comment on above: Performed By: #### V ITAD, IRON #### [facility] [address] [place], [place] [address] Dr. Spencer Braun LIPID PROFILEon 07-14-2022 CHOL-HDL RATIO NORM SEE BELOW Normal [facility] Comment on above: Result Comment: 3.3 - 4.4 LOW RISK 4.4 - 7.1 AVERAGE RISK 7.1 - 11.0 MODERATE RISK >11.0 HIGH RISK Performed By: #### B SHOE PARTS MOLDER, LIPID, CMP, T7, TSH ####[facility] [address] [address]Dr. Spencer Braun Cholesterol [Mass/Vol] 180 mg/dL Normal <=200 [facility] Comment on above: Performed By: #### B SHOE PARTS MOLDER, LIPID, CMP, T7, TSH ####[facility] [address] [address]Dr[address] Spencer Braun Cholesterol in HDL [Mass/Vol] 50 mg/dL Normal 40-60 [facility] Comment on above: Performed By: #### B SHOE PARTS MOLDER, LIPID, CMP, T7, TSH ####[facility] [address] [address]Dr. Spencer Braun Cholesterol in LDL [Mass/Vol] 105.8 mg/dL Normal [facility] Comment on above: Performed By: #### B SHOE PARTS MOLDER, LIPID, CMP, T7, TSH ####[facility] [address] [place], [place] [address]Hk. Spencer Braun Cholesterol.total/Ch olesterol in HDL [Mass ratio] 3.6 {ratio} Normal [facility] Comment on above: Performed By: #### B SHOE PARTS MOLDER, LIPID, CMP, T7, TSH ####[facility] [address] [address]Dr. Spencer Braun HDL NORMAL > or = 60 mg/dl - LOW CARDIOVASCULAR RISK <40 mg/dl - HIGH CARDIOVASCULAR RISK Normal [facility] Comment on above: Performed By: #### B SHOE PARTS MOLDER, LIPID, CMP, T7, TSH ####[facility] [address] [address]Dr. Spencer Braun LDL CALC NORMAL SEE BELOW Normal [facility] Comment on above: Result Comment: <100 mg/dl OPTIMAL 100 - 129 mg/dl NEAR OR ABOVE OPTIMAL 130 - 159 mg/dl BORDERLINE HIGH 160 - 189 mg/dl HIGH >190 mg/dl VERY HIGH Performed By: #### B SHOE PARTS MOLDER, LIPID, CMP, T7, TSH ####[facility] [address] [place], [place] [address]QaManish Braun Triglyceride [Mass/Vol] 121 mg/dL Normal <=150 [facility] Comment on above: Performed By: #### B SHOE PARTS MOLDER, LIPID, CMP, T7, TSH ####[facility] [address] [place], [place] [address]JgManish Braun VLDL CALC 24.2 mg/dL Normal [facility] Comment on above: Performed By: #### B SHOE PARTS MOLDER, LIPID, CMP, T7, TSH ####[facility] [address] [place], [place] [address]EjDr. Spencer Braun PROF 14(COMP METB)on 023 Albumin [Mass/Vol] 3.8 g/dL Normal 3.4-5.0 [facility] Comment on above: Performed By: #### B SHOE PARTS MOLDER, LIPID, CMP, T7, TSH #### [facility] [address] [address] [address] Spencer Braun Albumin/Globulin [Mass ratio] 1.0 {ratio} Normal [facility] Comment on above: Performed By: #### B SHOE PARTS MOLDER, LIPID, CMP, T7, TSH #### [facility] [address] [address] [address] Spencer Braun ALP [Catalytic activity/Vol] 135 U/L Critically high 46-116 [facility] Comment on above: Performed By: #### B SHOE PARTS MOLDER, LIPID, CMP, T7, TSH #### [facility] [address] [address] [address] Spencer Braun ALT [Catalytic activity/Vol] 20 U/L Normal 14-59 [facility] Comment on above: Performed By: #### B SHOE PARTS MOLDER, LIPID, CMP, T7, TSH #### [facility] [address] [address] [address] Spencer Braun Anion gap [Moles/Vol] 8.4 mmol/L Normal [facility] Comment on above: Performed By: #### B SHOE PARTS MOLDER, LIPID, CMP, T7, TSH #### [facility] [address] [address] [address] Spencer Braun AST [Catalytic activity/Vol] 14 U/L Critically low 15-37 [facility] Comment on above: Performed By: #### B SHOE PARTS MOLDER, LIPID, CMP, T7, TSH #### [facility] [address] [place] [address] Dr. Spencer Braun Bilirubin [Mass/Vol] 0.4 mg/dL Normal 0.2-1.0 [facility] Comment on above: Performed By: #### B SHOE PARTS MOLDER, LIPID, CMP, T7, TSH #### [facility] [address] [place] [address] Dr. Spencer Braun Calcium [Mass/Vol] 9.5 mg/dL Normal 8.5-10.1 [facility] Comment on above: Performed By: #### B SHOE PARTS MOLDER, LIPID, CMP, T7, TSH #### [facility] [address] [place] [address] Dr. Spencer Braun Chloride [Moles/Vol] 104 mmol/L Normal 98-107 [facility] Comment on above: Performed By: #### B SHOE PARTS MOLDER, LIPID, CMP, T7, TSH #### [facility] [address] [place] [address] Dr. Spencer Braun CO2 [Moles/Vol] 32.0 mmol/L Normal 21.0-32.[address] [facility] Comment on above: Performed By: #### B SHOE PARTS MOLDER, LIPID, CMP, T7, TSH #### [facility] [address] [place] [address] Dr. Spencer Braun Creatinine [Mass/Vol] 0.72 mg/dL Normal 0.55-1.02 [facility] Comment on above: Performed By: #### B SHOE PARTS MOLDER, LIPID, CMP, T7, TSH #### [facility] [address] [place] [address] Dr. Spencer Braun EGFR-AF LUXEMBOURGER >60 Normal >=[address] [facility] Comment on above: Performed By: #### B SHOE PARTS MOLDER, LIPID, CMP, T7, TSH #### [facility] [address] [place] [address] Dr. Spencer Braun EGFR-NON AF LUXEMBOURGER >60 Normal >=60 [facility] Comment on above: Performed By: #### B SHOE PARTS MOLDER, LIPID, CMP, T7, TSH #### [facility] [address] [place] [address] Dr. Spencer Braun Globulin (S) [Mass/Vol] 3.9 g/dL Normal [facility] Comment on above: Performed By: #### B SHOE PARTS MOLDER, LIPID, CMP, T7, TSH #### [facility] [address] [place] [address] Dr. Spencer Braun Glucose [Mass/Vol] 127 mg/dL Critically high 74-106 T [facility] Comment on above: Performed By: #### B SHOE PARTS MOLDER, LIPID, CMP, T7, TSH #### [facility] [address] [place] [address] Dr. Spencer Braun Potassium [Moles/Vol] 4.4 mmol/L Normal 3.5-5.1 [facility] Comment on above: Performed By: #### B SHOE PARTS MOLDER, LIPID, CMP, T7, TSH #### [facility] [address] [place] [address] Dr. Spencer Braun Protein [Mass/Vol] 7.7 g/dL Normal 6.4-8.2 [facility] Comment on above: Performed By: #### B SHOE PARTS MOLDER, LIPID, CMP, T7, TSH #### [facility] [address] [place] [address] Dr. Spencer Braun Sodium [Moles/Vol] 140 mmol/L Normal 136-145 [facility] Comment on above: Performed By: #### B SHOE PARTS MOLDER, LIPID, CMP, T7, TSH #### [facility] [address] [place] [address] Dr. Spencer Braun Urea nitrogen [Mass/Vol] 18.0 mg/dL Normal 7.0-18.0 [facility] Comment on above: Performed By: #### B SHOE PARTS MOLDER, LIPID, CMP, T7, TSH #### [facility] [address] [place] [address] Dr. Spencer Braun Urea nitrogen/Creatinine [Mass ratio] 25.0 mg/mg Normal [facility] [facility] Comment on above: Performed By: #### B SHOE PARTS MOLDER, LIPID, CMP, T7, TSH #### [facility] [address] [place] [address] Dr. Spencer Braun TSHon 07-14-2022 TSH 1.760 uIU/mL Normal 0.358-3.740 [facility] Comment on above: Performed By: #### B SHOE PARTS MOLDER, LIPID, CMP, T7, TSH #### [facility] [address] [place] [address] Dr. Spencer Braun VITAMIN D 25 OHon 07-14-2022 VIT D 25-OH 85.7 ng/mL Normal [facility] Comment on above: Performed By: #### V ITAD, IRON #### [facility] [address] [place] [address] Dr. Spencer Braun VIT D RANGES SEE BELOW Normal [facility] Comment on above: Result Comment: <20 ng/mL Vit D deficient 20 - <30 ng/mL Vit D insufficient 30 - 100 ng/mL Vit D sufficient >100 ng/mL Potential Toxicity Performed By: #### V ITAD, IRON #### [facility] [address] [place] [address] Dr. Spencer Braun CBC AUTO DIFFon 04-30-2022 BASO # 0.1 103/ul Normal 0.0-0.1 [facility] Comment on above: Performed By: #### C BC #### [facility] [address] [place] [address] Dr. Spencer Braun Basophils/100 WBC (Bld) 0.9 % Normal 0.2-2.0 [facility] Comment on above: Performed By: #### C BC #### [facility] [address] [place] [address] Dr. Spencer Braun EO # 0.2 103/ul Normal 0.0-0.7 [facility] Comment on above: Performed By: #### C BC #### [facility] [address] [place] [address] Dr. Spencer Braun Eosinophils/100 WBC (Bld) 2.1 % Normal 0.9-7.0 [facility] Comment on above: Performed By: #### C BC #### [facility] [address] [place] [address] Dr. Spencer Braun Erythrocyte distribution width (RBC) [Ratio] 13.9 % Normal 11.0-15.0 [facility] Comment on above: Performed By: #### C BC #### [facility] [address] [place] [address] Dr. Spencer Braun Hematocrit (Bld) [Volume fraction] 46.2 % Normal 36.0-48.0 [facility] Comment on above: Performed By: #### C BC #### [facility] [address] [place] [address] Dr. Spencer Braun Hemoglobin (Bld) [Mass/Vol] 15.1 g/dL Normal 12.0-16.0 [facility] Comment on above: Performed By: #### C BC #### [facility] [address] [place] [address] Dr. Spencer Braun IG # 0.05 10e3/ul Critically high 0.00-0.03 [facility] Comment on above: Performed By: #### C BC #### [facility] [address] [place] [address] Dr. Spencer Braun IG % 0.6 % Critically high 0.0-0.5 [facility] Comment on above: Performed By: #### C BC #### [facility] [address] [place] [address] Dr. Spencer Braun LYMPH # 1.7 103/ul Normal 1.2-3.8 [facility] Comment on above: Performed By: #### C BC #### [facility] [address] [place] [address] Dr. Spencer Braun Lymphocytes/100 WBC (Bld) 20.3 % Critically low 20.5-60.0 [facility] Comment on above: Performed By: #### C BC #### [facility] [address] [place] [address] Dr. Spencer Braun MANUAL DIFF REQ NO Normal [facility] Comment on above: Performed By: #### C BC #### [facility] [address] [place] [address] Dr. Spencer Braun MCH (RBC) [Entitic mass] 28.8 pg Normal 26.7-34.0 [facility] Comment on above: Performed By: #### C BC #### [facility] [address] [place] [address] Dr. Spencer Braun MCHC (RBC) [Mass/Vol] 32.7 g/dL Normal 29.9-35.2 [facility] Comment on above: Performed By: #### C BC #### [facility] [address] [place] [address] Dr. Spencer Braun MCV (RBC) [Entitic vol] 88.2 fL Normal 81.0-99.0 [facility] Comment on above: Performed By: #### C BC #### [facility] [address] [place] [address] Dr. Spencer Braun MONO # 0.6 103/ul Normal 0.3-0.8 [facility] Comment on above: Performed By: #### C BC #### [facility] [address] [place] [address] Dr. Spencer Braun Monocytes/100 WBC (Bld) 7.1 % Normal 1.7-12.0 [facility] Comment on above: Performed By: #### C BC #### [facility] [address] [place] [address] Dr. Spencer Braun NEUT # 5.7 103/ul Normal 1.4-6.5 [facility] Comment on above: Performed By: #### C BC #### [facility] [address] [place] [address] Dr. Spencer Braun Neutrophils/100 WBC (Bld) 69.0 % Normal 43.0-75.0 [facility] Comment on above: Performed By: #### C BC #### [facility] [address] [place] [address] Dr. Spencer Braun Platelet mean volume (Bld) [Entitic vol] 9.2 fL Critically low 9.5-13.5 [facility] Comment on above: Performed By: #### C BC #### [facility] [address] [address] [address] Spencer Braun PLT 180 103/ul Normal 150-450 [facility] Comment on above: Performed By: #### C BC #### [facility] [address] [address] [address] Spencer Braun RBC 5.24 106/ul Normal 4.20-5.40 [facility] Comment on above: Performed By: #### C BC #### [facility] [address] [address] [address] Spencer Braun WBC 8.2 103/ul Normal 4.0-11.0 [facility] Comment on above: Performed By: #### C BC #### [facility] [address] [address] [address] Spencer Braun FREE T3on 04-30-2022 FREE T3 2.98 pg/mlL Normal 2.18-3.98 [facility] Comment on above: Performed By: #### L IPID, TSH, T4, FT3, CMP ####[facility] [address] [place], [place] [address]DrManish Braun GLYCOHEMOGLOBIN A1Con 2021 ADA RECOMMENDATION SEE BELOW Normal [facility] Comment on above: Result Comment: ADA RECOMMENDED LIMIT 4.0 - 6.0 ADA THERAPEUTIC TARGET < 7.0 ACTION SUGGESTED > 7.0 Performed By: #### A 1C ####[facility] [address] [address]DrManish Braun Glucose [Mass/Vol] 134 mg/dL Normal [facility] Comment on above: Performed By: #### A 1C ####[facility] [address] [address]DrManish Braun HbA1c (Bld) [Mass fraction] 6.3 % Critically high 4.5-6.2 [facility] Comment on above: Performed By: #### A 1C ####[facility] [address] [id number]. Spencer Braun LIPID PROFILEon 04-30-2022 CHOL-HDL RATIO NORM SEE BELOW Normal [facility] Comment on above: Result Comment: 3.3 - 4.4 LOW RISK 4.4 - 7.1 AVERAGE RISK 7.1 - 11.0 MODERATE RISK >11.0 HIGH RISK Performed By: #### L IPID, TSH, T4, FT3, CMP ####[facility] [address] [id number]. Spencer Braun Cholesterol [Mass/Vol] 177 mg/dL Normal <=200 [facility] Comment on above: Performed By: #### L IPID, TSH, T4, FT3, CMP ####[facility] [address] [id number]. Spencer Braun Cholesterol in HDL [Mass/Vol] 56 mg/dL Normal 40-60 [facility] Comment on above: Performed By: #### L IPID, TSH, T4, FT3, CMP ####[facility] [address] [id number]. Spencer Braun Cholesterol in LDL [Mass/Vol] 97.8 mg/dL Normal [facility] Comment on above: Performed By: #### L IPID, TSH, T4, FT3, CMP ####[facility] [address] [id number]. Spencer Braun Cholesterol.total/Ch olesterol in HDL [Mass ratio] 3.2 {ratio} Normal [facility] Comment on above: Performed By: #### L IPID, TSH, T4, FT3, CMP ####[facility] [address] [id number]. Spencer Braun HDL NORMAL > or = 60 mg/dl - LOW CARDIOVASCULAR RISK <40 mg/dl - HIGH CARDIOVASCULAR RISK Normal [facility] Comment on above: Performed By: #### L IPID, TSH, T4, FT3, CMP ####[facility] [address] [id number]. Spencer Braun LDL CALC NORMAL SEE BELOW Normal [facility] Comment on above: Result Comment: <100 mg/dl OPTIMAL 100 - 129 mg/dl NEAR OR ABOVE OPTIMAL 130 - 159 mg/dl BORDERLINE HIGH 160 - 189 mg/dl HIGH >190 mg/dl VERY HIGH Performed By: #### L IPID, TSH, T4, FT3, CMP ####[facility] [address] [address]Dr. Spencer Braun Triglyceride [Mass/Vol] 116 mg/dL Normal <=150 [facility] Comment on above: Performed By: #### L IPID, TSH, T4, FT3, CMP ####[facility] [address] [address]Dr. Spencer Braun VLDL CALC 23.2 mg/dL Normal [facility] Comment on above: Performed By: #### L IPID, TSH, T4, FT3, CMP ####[facility] [address] [address]Dr. Spencer Braun PROF 14(COMP METB)on 022 Albumin [Mass/Vol] 3.8 g/dL Normal 3.4-5.0 [facility] Comment on above: Performed By: #### L IPID, TSH, T4, FT3, CMP ####[facility] [address] [address]Dr. Spencer Braun Albumin/Globulin [Mass ratio] 0.9 {ratio} Normal [facility] Comment on above: Performed By: #### L IPID, TSH, T4, FT3, CMP ####[facility] [address] [address]Dr. Spencer Braun ALP [Catalytic activity/Vol] 143 U/L Critically high 46-116 [facility] Comment on above: Performed By: #### L IPID, TSH, T4, FT3, CMP ####[facility] [address] [address]Dr. Spencer Braun ALT [Catalytic activity/Vol] 19 U/L Normal 14-59 [facility] Comment on above: Performed By: #### L IPID, TSH, T4, FT3, CMP ####[facility] [address] [address]Dr. Spencer Braun Anion gap [Moles/Vol] 12.1 mmol/L Normal [facility] Comment on above: Performed By: #### L IPID, TSH, T4, FT3, CMP ####[facility] [address] [address]Dr. Spencer Braun AST [Catalytic activity/Vol] 17 U/L Normal 15-37 [facility] Comment on above: Performed By: #### L IPID, TSH, T4, FT3, CMP ####[facility] [address] [address]Dr. Spencer Braun Bilirubin [Mass/Vol] 0.3 mg/dL Normal 0.2-1.0 [facility] Comment on above: Performed By: #### L IPID, TSH, T4, FT3, CMP ####[facility] [address] [place], [place] [address]Dr. Spencer Braun Calcium [Mass/Vol] 9.5 mg/dL Normal 8.5-10.1 [facility] Comment on above: Performed By: #### L IPID, TSH, T4, FT3, CMP ####[facility] [address] [address]Dr. Spencer Braun Chloride [Moles/Vol] 102 mmol/L Normal 98-107 [facility] Comment on above: Performed By: #### L IPID, TSH, T4, FT3, CMP ####[facility] [address] [address]Dr. Spencer Braun CO2 [Moles/Vol] 32.6 mmol/L Critically high 21.0-32.0 [facility] Comment on above: Performed By: #### L IPID, TSH, T4, FT3, CMP ####[facility] [address] [address]Dr. Spencer Braun Creatinine [Mass/Vol] 0.69 mg/dL Normal 0.55-1.02 [facility] Comment on above: Performed By: #### L IPID, TSH, T4, FT3, CMP ####[facility] [address] [address]Dr. Spencer Braun EGFR-AF LUXEMBOURGER >60 Normal >=[address] [facility] Comment on above: Performed By: #### L IPID, TSH, T4, FT3, CMP ####[facility] [address] [address]Dr. Spencer Braun EGFR-NON AF LUXEMBOURGER >60 Normal >=60 [facility] Comment on above: Performed By: #### L IPID, TSH, T4, FT3, CMP ####[facility] [address] [address]Dr. Spencer Braun Globulin (S) [Mass/Vol] 4.1 g/dL Normal [facility] Comment on above: Performed By: #### L IPID, TSH, T4, FT3, CMP ####[facility] [address] [place], [place] [address]Dr. Spencer Braun Glucose [Mass/Vol] 108 mg/dL Critically high 74-106 [facility] Comment on above: Performed By: #### L IPID, TSH, T4, FT3, CMP ####[facility] [address] [place], [place] [address]Dr. Spencer Braun Potassium [Moles/Vol] 4.7 mmol/L Normal 3.5-5.1 [facility] Comment on above: Performed By: #### L IPID, TSH, T4, FT3, CMP ####[facility] [address] [address]Dr. Spencer Braun Protein [Mass/Vol] 7.9 g/dL Normal 6.4-8.2 [facility] Comment on above: Performed By: #### L IPID, TSH, T4, FT3, CMP ####[facility] [address] [place], [place] [address]Dr. Spencer Braun Sodium [Moles/Vol] 142 mmol/L Normal 136-145 [facility] Comment on above: Performed By: #### L IPID, TSH, T4, FT3, CMP ####[facility] [address] [address]Dr. Spencer Braun Urea nitrogen [Mass/Vol] 19.0 mg/dL Critically high 7.0-18.0 [facility] Comment on above: Performed By: #### L IPID, TSH, T4, FT3, CMP ####[facility] [address] [address]Dr. Spencer Braun Urea nitrogen/Creatinine [Mass ratio] 27.5 mg/mg Normal [facility] Comment on above: Performed By: #### L IPID, TSH, T4, FT3, CMP ####[facility] [address] [address]Dr. Spencer Braun T4on 04-30-2022 T4 [Mass/Vol] 8.30 ug/dL Normal 4.80-13.90 [facility] Comment on above: Performed By: #### L IPID, TSH, T4, FT3, CMP ####[facility] [address] [address]Dr. Spencer Braun TSHon 04-30-2022 TSH 1.777 uIU/mL Normal 0.358-3.740 [facility] Comment on above: Performed By: #### L IPID, TSH, T4, FT3, CMP ####[facility] [address] [address]Dr. Spencer Braun VITAMIN D 25 OHon 04-30-2022 VIT D 25-OH 72.1 ng/mL Normal [facility] Comment on above: Performed By: #### V ITAD #### [facility] [address] [address] [address] Spencer Braun VIT D RANGES SEE BELOW Normal [facility] Comment on above: Result Comment: <20 ng/mL Vit D deficient 20 - <30 ng/mL Vit D insufficient 30 - 100 ng/mL Vit D sufficient >100 ng/mL Potential Toxicity Performed By: #### V ITAD #### [facility] [address] [address] [address] Spencer Braun MG MAMM SCREEN 3D AWAIS CADon 02-16-2022 MG MAMM SCREEN 3D AWAIS CAD Patient: BETH STARKEY Exam Date: 02/16/2022 : 1940 Gender:F Ordering : DR MARCK TATE . Admission #: [id number] Family : Order #: [id number] CLICK HERE TO VIEW EXAM RADIOLOGY REPORT [...] at age 71. LOCATION: [facility] BREAST COMPOSITION: Heterogeneously dense,which may [...] MD on 02/17/2022 at 07:39 Normal [facility] Vital Signs Date Time Vital Sign Value Performing Clinician Tony jenkins 12-16-2023 15:18-0400 Diastolic blood pressure 68 mm[Hg] archifynSanovas [facility] 12-16-2023 15:18-0400 Systolic blood pressure 118 mm[Hg] Tam CDNlionnus [facility] 05-12-2023 10:13-0500 Diastolic blood pressure 72 mm[Hg] Sha Vallejo [facility] 05-12-2023 10:13-0500 Heart rate 94 /min Sha Vallejo [facility] 05-12-2023 10:13-0500 SaO2% (BldA) [Mass fraction] 90 % Sha Vallejo [facility] 05-12-2023 10:13-0500 Systolic blood pressure 130 mm[Hg] Sha Vallejo [facility] 05-03-2023 12:24-0500 Diastolic blood pressure 59 mm[Hg] Jena Hicks MD Work Phone: [facility] 05-03-2023 12:24-0500 Heart rate 86 /min Jena Hicks MD Work Phone: [facility] 05-03-2023 12:24-0500 Systolic blood pressure 103 mm[Hg] Jena Hicks MD Work Phone: [facility] 05-03-2023 12:14-0500 Body height 152.4 cm Jena Hicks MD Work Phone: [facility] 05-03-2023 12:14-0500 Body temperature 98.29 [degF] Jena Hicks MD Work Phone: [facility] 05-03-2023 12:14-0500 Body weight 65.82 kg Jena Hicks MD Work Phone: [facility] 05-03-2023 12:14-0500 Respiratory rate 16 /min Jena Hicks MD Work Phone: [facility] 05-03-2023 12:14-0500 SaO2% (BldA) [Mass fraction] 93 % Jena Hicks MD Work Phone: [facility] 09-06-2022 09:39-0400 Blood Pressure Location Dayron Jorgensen [facility] 09-06-2022 09:39-0400 Diastolic blood pressure 81 mm[Hg] Dayron Jorgensen [facility] 09-06-2022 09:39-0400 Heart rate 103 /min Dayron Jorgensen [facility] 09-06-2022 09:39-0400 SaO2% (BldA) [Mass fraction] 90 % Dayron Jorgensen [facility] 09-06-2022 09:39-0400 Systolic blood pressure 126 mm[Hg] Dayron Jorgensen [facility] Encounters Encounter Date Encounter Type Care Provider Facility Start: 01-09-2024 End: 01-10-2024 ambulatory [facility] Start: 12-16-2023 End: 12-17-2023 Pre-admission assessment Tam Vallejo [facility] Start: 12-16-2023 End: 12-16-2023 ambulatory MD Tam Vallejo Facility:[facility] Start: 11-09-2023 End: 11-09-2023 ambulatory FORREST SALAZAR Not Available Start: 05-30-2023 End: 05-30-2023 ambulatory FORREST SALAZAR Not Available Start: 05-12-2023 End: 05-12-2023 ambulatory Sha Vallejo Facility:[facility] Start: 05-12-2023 End: 05-12-2023 Patient encounter procedure Sha Vallejo [facility] Start: 05-04-2023 Orders Only Jena Hicks MD Work Phone: [facility] Comment on above: 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); Bilateral carotid artery stenosis; Other disorders of arteries, arterioles and capillaries in diseases classified elsewhere (HCC) Start: 05-03-2023 End: 05-03-2023 ambulatory JENA HICKS Facility:[facility] Start: 05-03-2023 End: 05-03-2023 Office outpatient visit 25 minutes Jena Hicks MD Work Phone: [facility] Comment on above: 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) Start: 04-26-2023 Orders Only Jena Hicks MD Work Phone: [facility] Comment on above: Chest pain, unspecif ied type (Primary Dx) Start: 04-25-2023 Telephone encounter No 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 Comment on above: Appointment Start: 04-22-2023 Telephone encounter No One (Historic al) Referring Physician Comment on above: External Referrals/r esources Start: 04-20-2023 End: 04-20-2023 ambulatory FORREST SALAZAR Not Available Start: 03-23-2023 End: 03-23-2023 ambulatory Sha Vallejo Facility:[facility] Start: 03-23-2023 End: 03-23-2023 Patient encounter procedure Sha Vallejo [facility] Start: 01-20-2023 End: 01-20-2023 ambulatory Sha Vallejo Facility:[facility] Start: 01-20-2023 End: 01-20-2023 Patient encounter procedure Sha Vallejo [facility] Start: 09-24-2022 End: 09-24-2022 Patient encounter procedure Dayron Jorgensen [facility] Start: 09-06-2022 End: 09-06-2022 Patient encounter procedure [...] Start: 06-17-2017 End: 06-18-2017 Ambulatory DEFAULT PHYSICIAN Facility:[facility] Plan of Treatment Date Care Activity Detail Author Start: 07-04-2029 Urine microalbumin profile DTaP,Tdap,Td Vaccine (2 - Td or Tdap) [facility] Start: 01-21-2023 Influenza vaccination Influenza Vacc ine (#1) [facility] Start: 05-23-2022 Advance Directive Discussion Advance Directive Discussion [facility] Start: 05-23-2022 Depression Assessment Depression Ass essment [facility] Start: 05-18-2017 Pneumococcal Vaccine : 65+ (2 - PPSV23 or PCV20) Pneumococcal Vaccine: 65+ (2 - PPSV23 or PCV20) [facility] Start: 2006 Bone Density Screening Bone Density Screening [facility] Start: 2006 Pneumococcal Vaccine : 65+ (1 - PCV) Pneumococcal Vaccine: 65+ (1 - PCV) [facility] Start: 2006 Screening for osteoporosis Bone Density Screening [facility] Start: 2001 RSV Vaccine (1 - 1-d ose 60+ series) RSV Vaccine (1 - 1-dose 60+ series) [facility] Start: 1991 Shingrix Vaccine (1 of 2) Shingrix Vaccine (1 of 2) [facility] Start: 1986 Diabetes Screening Diabetes Screenin g [facility] Start: 1940 Covid-19 Vaccine (#1) Covid-19 Vacci ne (#1) [facility] End: 05-25-2024 Ct angio abd&plvis cntrst mtrl w/wo cntrst img CTA ABD/PEL WO/W IVCON Radiology Routine Chest pain, unspecified type 1 Occurrences starting 04/26/2023 until 05/25/2024 [facility] Work Phone: Comment on above: 1 Occurrences starti ng 04/26/2023 until 05/25/2024 End: 06-02-2024 Ct angio abd&plvis cntrst mtrl w/wo cntrst img CTA ABD/PEL WO/W IVCON Radiology Routine 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 Occurrences starting 05/04/2023 until 06/02/2024 [facility] Work Phone: Comment on above: 1 Occurrences starti ng 05/04/2023 until 06/02/2024 End: 05-25-2024 Ct angiography chest w/contrast/noncontrast CTA CHEST (NONGATED) WO/W IVCON Radiology Routine Chest pain, unspecified type 1 Occurrences starting 04/26/2023 until 05/25/2024 [facility] Work Phone: Comment on above: 1 Occurrences starti ng 04/26/2023 until 05/25/2024 End: 06-02-2024 Ct angiography chest w/contrast/noncontrast CTA CHEST (NONGATED) WO/W IVCON Radiology Routine 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 Occurrences starting 05/04/2023 until 06/02/2024 [facility] Work Phone: Comment on above: 1 Occurrences starti ng 05/04/2023 until 06/02/2024 End: 05-04-2024 PVR ANK/HILL/TOE AWAIS VAS LAB PVR ANK/HILL/TOE AWAIS VAS LAB Vascular Lab Routine 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) Other disorders of arteries, arterioles and capillaries in diseases classified elsewhere (HCC) 1 Occurrences starting 05/04/2023 until 05/04/2024 [facility] Work Phone: Comment on above: 1 Occurrences starti ng 05/04/2023 until 05/04/2024 End: 05-04-2024 US CAROTID ARTERIES AWAIS VAS LAB US CAROTID ARTERIES AWAIS [facility]AS LAB Vascular Lab Routine Bilateral carotid artery stenosis 1 Occurrences starting 05/04/2023 until 05/04/2024 [facility] Work Phone: Comment on above: 1 Occurrences starti ng 05/04/2023 until 05/04/2024 [facility] Payers Date Payer Category Payer [employer] ( and others) [id number] 2006 Medicare MEDICARE MEDICAR E A AND B [id number] 2006-Present [phone] [facility] [place] [address] Medicare [id number] 1959 [employer] ( and others) [id number] 1959 Medicare [id number] 1940 Unknown [id number] 2.16.840.1.711705.3.579. 2.593 1940 Unknown [id number] 2.16.840.1.423836.3.579. 2.593 1941 Unknown [id number] 2.16.840.1.818898.3.579. 2.593 1941 Unknown [id number] 2.16.840.1.023188.3.579. 2.593 1941 Unknown [id number] 2.16.840.1.500150.3.579. 2.593 1941 Unknown [id number] 2.16.840.1.111839.3.579. 2.1259 1941 Unknown [id number] 2.16.840.1.008997.3.579. 2.1259 1941 Unknown [id number] 2.16.840.1.920452.3.579. 2.1259 1941 Unknown [id number] 2.16.840.1.717039.3.579. 2.727 1941 Unknown [id number] 2.16.840.1.070579.3.579. 2.727 1941 Unknown [id number] 2.16.840.1.780370.3.579. 2.727 1941 Unknown [id number] 2.16.840.1.292541.3.579. 2.727 Unknown Social History Date Type Detail Facility Start: 09-06-2022 End: 12-16-2023 Tobacco smoking status Heavy tobacco smoker (finding) [facility] Start: 05-03-2023 Sex Assigned At Female F [facility] Tobacco smoking stat [facility] Tobacco smoking consumption unknown [facility] Start: 1940 Sex Assigned At Not on file C [facility] Start: 05-23-1956 [facility] Start: 05-23-1956 History of tobacco use Cigarette Smo ker [facility] Start: 05-03-2023 Cigarettes smoked current (pack per day) - Reported 1.5 [facility] Start: 05-03-2023 Tobacco use and exposure Smokeless tobacco non-user [facility] Start: 05-03-2023 Alcohol intake Current drinke r of alcohol (finding) [facility] National Score (1-10 0), lower number is lower risk 87 [facility] Start: 05-03-2023 Alcohol Comment football season [facility] Functional Status Date Assessment Result Facility 12-16-2023 Functional Status N/A [facility] 05-12-2023 Functional Status N/A [facility] 09-06-2022 Functional Status No [facility] Clinical Notes 03-21-2023 to 01-09-2024 Jena [...] status post stent placement in 1995 at [facility], 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 [facility] 05-26-2023 Note Patient Outreach ( LMTN) BETH STARKEY ([id number]) 1940 F Date Time Provider Department 05/26/23 [...] and brochure sent Lung Nodule Program Location: [place] Allergies As of Date: 05/26/2023 (No Known [...] Encounter Status:Closed by EVANGELINA BURNETT on 05/26/23 [facility] 05-26-2023 Note HNO ID: [id number] Author: ?, ?, ? Service: ? Author [...] and brochure sent Lung Nodule Program Location: [facility] 05-18-2023 Note Patient Outreach ([facility]) BETH STARKEY ([id number]) 1940 F Date Time Provider Department 05/18/23 CROW BELLOSteven During your visit today, we recorded the following information about you: Crow Bello APRN.RESIDENTIAL GAS HEAT TECHNICIAN 05/18/2023 11:12 AM Signed Incidental Lung Nodule Enrollment Outreach attempt: 1st Attempt Outreach status: Complete Enrolled in Lung Nodule program: Referred Lung Nodule outreach: No outreach - Very small nodule, letter and brochure sent Lung Nodule Program Location: [place] Allergies As of Date: 05/18/2023 (No Known [...] Encounter Status:Closed by CROW BELLO on 05/18/23 [facility] 12-27-2023 Note HNO ID: [id number] Author: Crow Bello APRN.JAYDEN Service: ? Author Type: Nurse Practitioner Type: Progress Notes Filed: 05/18/2023 11:12 AM Note Text: Incidental Lung Nodule Enrollment Outreach attempt: 1st Attempt Outreach status: Complete Enrolled in Lung Nodule program: Referred Lung Nodule outreach: No outreach - Very small nodule, letter and brochure sent Lung Nodule Program Location: [facility] 05-03-2023 Note HNO ID: [id number] Author: Nadine Cummins RN Service: Radiology Author [...] DATE: May 03, 2023 TIME: 1:00 PM [facility] 05-03-2023 Note HNO ID: [id number] Author: Kandy Aragon RT(Gilberto) Service: Radiology Author [...] RT Tess(R) May 03, 2023 1:19 PM [facility] 05-03-2023 History and physical note Heart , Vascular and Thoracic [place] DEPARTMENT OF VASCULAR SURGERY OUTPATIENT VISIT DATE [...] Moderate documented in this encounter [facility] 04-25-2023 Miscellaneous Notes Reason for call: Ms Starkey called,and she would like to schedule an appointment with vascular surgery Referred by Dr Judit [facility] and cell number: [phone] Diagnosis: AAA Kind Regards Jaelynn documented in this encounter [facility] 04-22-2023 Miscellaneous Notes Patient: Beth Starkey Date of : 1940 Patient phone number: [phone] Referring Provider for the encounter: Marck Tate MD Requesting Provider: N/A Reason for requesting visit (RFV/signs and symptoms/diagnosis): Sent Telephone Encounter - updated tracking. Person calling: caregiver: Patrizia Return call to: self Medical Records/Insurance Card scanned into Epic: Yes Comments: N/A documented in this encounter [facility] 03-23-2023 Evaluation + Plan note Diagnostic [...] 6 cm. Beth Starkey denies having a speech therapy assistant at this time. She denies chest pain or dyspnea. She does have some dyspnea on exertion. Beth Starkey has a history of 2 stents placed in her heart by Dr. Wells at [facility]. Review of Systems Constitutional: no fever, no [...] with voice recognition artificial intelligence software, specifically [employer], [employer] and or [employer]. Substitutions may have occurred with voice recognition and artificial intelligence software. ATTESTATION: Documentation services were performed after patient or guardian consented to allow [employer] to record this visit. SANTOS child protective services specialist and provider reviewed before signing. [...] heart failure: Mother. Brenda Gehrig's disease: Father. 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 Bilateral carotid artery stenosis Occlusion and stenosis of carotid artery without mention of cerebral infarction Other disorders of arteries, arterioles and capillaries in diseases classified elsewhere (HCC) documented in this encounter [facility] course Narrative No data available for this section [facility] Discharge instructions No data available [...] EXTREMITY ART 2 LEVEL Jena Hicks MD [address] [place] [address] [facility] [place] [id number] [place] [address] Referral ID Status Reason Start Date Expiration Date Visits Requested Visits Authorized [id number] Authorized Auto-Generat ed Referral 3 05/03/2024 1 1 * MRI/CT (Routine) - Authorized Specialty Diagnoses / Procedures Referred By Manjula jovel Referred To Contact CT IMAGING Diagnoses 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) Procedures CTA ABD/PEL WO/W IVCON CT ANGIO ABD&PLVIS CNTRST MTRL W/WO CNTRST IMGES Jena Hicks MD [address] [place] [address] Ct Imaging [place] [address] Referral ID Status Reason Start Date Expiration Date Visits Requested Visits Authorized [id number] Authorized Auto-Generat ed Referral 3 06/02/2024 1 1 * MRI/CT (Routine) - Authorized Specialty Diagnoses / Procedures Referred By Manjula jovel Referred To Contact CT IMAGING Diagnoses 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) Procedures CTA CHEST (NONGATED) WO/W IVCON CT ANGIOGRAPHY CHEST W/CONTRAST/NONCONTRAST Jena Hicks MD [address] [place] [address] [address] Imaging [place] [address] Referral ID Status Reason Start Date Expiration Date Visits Requested Visits Authorized [id number] Authorized Auto-Generat ed Referral 3 06/02/2024 1 1 * Outpatient Procedure (Routine) - Authorized Specialty Diagnoses / Procedures Referred By Manjula jovel Ref[facility] Diagnoses Bilateral carotid artery stenosis Procedures US CAROTID ARTERIES AWAIS [facility] DUPLEX SCAN EXTRACRANIAL ART COMPL BI STUDY Jena Hicks MD [address] [place] [address] [facility] [place] [address] [place] [address] Referral ID Status Reason Start Date Expiration Date Visits Requested Visits Authorized [id number] Authorized Auto-Generat ed Referral 3 05/03/2024 1 1 [facility] Summary Purpose Family History No Family [...] CNTRST MTRL W/WO CNTRST Jena Todd MD [address] [place] [address] Ct Imaging [place] [address] Referral ID Status Reason Start Date Expiration Date Visits Requested Visits Authorized [id number] Authorized Auto-Generat ed Referral 04/26/2023 05/25/2024 1 1 Specialty Diagnoses / Procedures Referred By Contac t Referred To Contact CT IMAGING Diagnoses Chest pain, unspecified type Procedures CTA CHEST (NONGATED) WO/W IVCON CT ANGIOGRAPHY CHEST W/CONTRAST/NONCONTRAST Jena Hicks MD [address] [place] [address] Ct Imaging [place] [address] Referral ID Status Reason Start Date Expiration Date Visits Requested Visits Authorized [id number] Authorized Auto-Generat ed Referral 04/26/2023 05/25/2024 1 1 Additional Source Comments INFORMATION SOURCE (unrecogn ized section and content) DATE CREATED AUTHOR 11/14/[address] [facility] DATE CREATED AUTHOR AUTHOR'S ORGANIZ ATION 08/09/2022 [facility] DATE CREATED AUTHOR AUTHOR'S ORGANIZ ATION 05/27/2023 [facility] DATE CREATED AUTHOR AUTHOR'S ORGANIZ ATION 11/11/2023 [facility] EPIC DATE CREATED AUTHOR AUTHOR'S ORGANIZ ATION 12/29/2023 [facility] DATE CREATED AUTHOR AUTHOR'S ORGANIZ ATION 01/10/2024 [facility] Patient Care team informatio n (unrecognized section and content) Mechanical Test Engineer Relationship Specialty Start Date End Date Marck Tate MD [address] [place] [address] [facility] 04/22/23 Mechanical Test Engineer Relationship Specialty Start Date End Date Marck Tate MD [address] [place] [address] [facility] 04/22/23 Mechanical Test Engineer Relationship Specialty Start Date End Date Marck Tate MD [address] [place] [address] [facility] 04/22/23 Mechanical Test Engineer Relationship Specialty Start Date End Date Marck Tate MD [address] [place] [address] [facility] 04/22/23 Source Comments (unrecognize d section and content) In the event this informatio n is protected by the Federal Confidentiality of Alcohol and Drug Abuse Patient Records regulations: The Federal rules restrict any use of the information to criminally investigate or prosecute any alcohol or drug abuse patient.[facility] the event this information is protected by the Federal Confidentiality of Alcohol and Drug Abuse Patient Records regulations: The Federal rules restrict any use of the information to criminally investigate or prosecute any alcohol or drug abuse patient.[facility] the event this information is protected by the Federal Confidentiality of Alcohol and Drug Abuse Patient Records regulations: The Federal rules restrict any use of the information to criminally investigate or prosecute any alcohol or drug abuse patient.[facility] the event this information is protected by the Federal Confidentiality of Alcohol and Drug Abuse Patient Records regulations: The Federal rules restrict any use of the information to criminally investigate or prosecute any alcohol or drug abuse patient.[facility] the event this information is protected by the Federal Confidentiality of Alcohol and Drug Abuse Patient Records regulations: The Federal rules restrict any use of the information to criminally investigate or prosecute any alcohol or drug abuse patient.[facility] Reason for Visit (unrecogniz ed section [...] BE BASED ON THE PRIMARY CLINICAL RECORDS. [facility] [employer] [facility]. provides no warranty or guarantee of the accuracy or completeness of information in this document.
[2024-01-20 16:27] LABS: Basophils Absolute Auto 0.1 10^3/uL (0.0-0.1); Basophils Percent Auto 0.6 % (0.2-2.0); Eosinophils Absolute Auto 0.2 10^3/uL (0.0-0.7); Eosinophils Percent Auto 2.2 % (0.9-7.0); Hematocrit 39.8 % (36.0-48.0); Hemoglobin 13.3 g/dL (12.0-16.0); Immature Granulocytes Abs Auto 0.07 10^3/uL (0.00-0.03); Immature Granulocytes Pct Auto 0.7 % (0.0-0.5); Lymphocytes Absolute Auto 1.2 10^3/uL (1.2-3.8); Lymphocytes Percent Auto 12.4 % (20.5-60.0); Mean Corpuscular HGB Conc 33.4 g/dL (29.9-35.2); Mean Corpuscular Hemoglobin 29.4 pg (26.7-34.0); Mean Corpuscular Volume 87.9 fL (81.0-99.0); Mean Platelet Volume 9.4 fL (9.5-13.5); Monocytes Absolute Auto 0.7 10^3/uL (0.3-0.8); Monocytes Percent Auto 7.3 % (1.7-12.0); Neutrophils Absolute Auto 7.2 10^3/uL (1.4-6.5); Neutrophils Percent Auto 76.8 % (43.0-75.0); Platelet Count 165 10^3/uL (150-450); Red Blood Count 4.53 10^6/uL (4.20-5.40); Red Cell Distribution Width 14.2 % (11.0-15.0); White Blood Count 9.4 10^3/uL (4.0-11.0)
[2024-01-20] MEDS: 0.9 % SODIUM CHLORIDE 1,000 ML 500 ML IV (16:45)
[2024-01-20] MEDS: ADACEL DIPH,PERTUSS(ACELL),TET VAC/PF 0.5 ML ADULT SYRINGE IM (16:45)
[2024-01-20 16:47] LABS: Alanine Aminotransferase 19 U/L (14-59); Albumin Globulin Ratio 0.9; Albumin Level 3.3 g/dL (3.4-5.0); Alkaline Phosphatase 133 U/L (46-116); Anion Gap 11.7; Aspartate Amino Transferase 13 U/L (15-37); BUN Creatinine Ratio 21.4; Bilirubin Total 0.5 mg/dL (0.2-1.0); Calcium 9.1 mg/dL (8.5-10.1); Chloride 104 mmol/L (98-107); Estimated GFR (African America 54 (>=60); Estimated GFR (Non-African Ame 44 (>=60); Globulin 3.5 g/dL; Glucose 111 mg/dL (74-106); Potassium 4.7 mmol/L (3.5-5.1); Sodium 140 mmol/L (136-145); Total Protein 6.8 g/dL (6.4-8.2)
--- NOTE | 2024-01-20 18:13 | XR_ITS ---
The [address] [address] Patient Name: ADELA PARDO MRN: [id number] date: 1940 Sex: F Assigned Patient Location: ER Current Patient Location: ER Accession/Order Number: [id number] Exam Date: 01/20/2024 18:32 Report Date: 01/20/2024 19:08 At the request of: RAINA DUARTE Procedure: XR knee RT 2V EXAM: XR knee RT 2V HISTORY: with knee immobilizer COMPARISON: Right knee x-ray series 1 on 01/20/2024 at 4:25 PM TECHNIQUE: AP lateral right knee with an immobilizer in place 01/20/2024 at 6:25 PM. Series 2 this date. FINDINGS: Immobilizer in place projects posteriorly. Horizontal fractures of the mid patella again noted. There is anterior displacement distal fragment by 5 mm which is new. Traction slightly more prominent anteriorly. Marked increased prepatellar soft tissue swelling/hematoma. Infrapatellar fat pad remains well-defined. Subcutaneous lucency noted. No femur tibial or fibular fracture seen. Calcification seen along the epicondyles femur and lateral tibial plateau unchanged. Vascular soft tissue calcification. XR/XR knee RT 2V IMPRESSION: 1. Repeat knee series with the immobilizer in place demonstrates a horizontal fracture through the patella with increased displacement of the distal fragment now 5 mm anteriorly. Distraction slightly more prominent. 2. Marked increased soft tissue thickening prepatellar area consistent with hematoma. 3. No other fracture or new fracture seen. Joint effusion unchanged. Electronically authenticated by: JONO SURESH Date: 01/20/2024 19:08
[2024-01-20 18:29] VITALS: BP 120/79
== END 2024-01-20 20:15 | disposition home or self-care (01) ==
PROVIDERS: Emergency Provider Emergency Medicine; PCP Family Medicine
DX: S82.001A Unspecified fracture of right patella, initial encounter for closed fracture (principal); R07.81 Pleurodynia; Z79.84 Long term (current) use of oral hypoglycemic drugs; S50.311A Abrasion of right elbow, initial encounter; W01.0XXA Fall on same level from slipping, tripping and stumbling without subsequent striking against object, initial encounter; Z23 Encounter for immunization
CPT/HCPCS: 36415; 71250; 73560; 73562; 80053; 85025; 90471; 90715; 99285

== ENCOUNTER 2024-09-03 10:40 | Outpatient (OUT) | payer MEDICARE, OTHER, SELFPAY ==
--- OUTSIDE RECORDS SUMMARY | 2024-09-03 10:57 | XMS_ITS | CCD ---
Author Organization [facility] Providers Care Editorial Director Name Role Phone PHYSICIAN, DEFAULT Unavailable Unavailable PHYSICIAN, DEFAULT Unavailable Unavailable MARCK TATE Unavailable Unavailable HOY ., DR ACHARYA Admitting Unavailable HOY ., DR ACHARYA Attending Unavailable HOY ., DR ACHARYA Primary Care Unavailable HOY ., DR ACHARYA Consulting Unavailable WEYERHAEUSER, DR SANDOVAL Ferguson Consulting Unavailable HOY ., [...] HOY ., DR ACHARYA Primary Care Unavailable LAKESHIAY ., DR ACHARYA Consulting Unavailable Marck Tate Primary Care Physician Marck Tate MD Unavailable JENA HICKS Referring Unavailable JENA HICKS Attending Unavailable CALE HOPE Attending Unavailable CALE HOPE Attending Unavailable Marck Tate MD Primary Care Provider [phone] Tam Vallejo Attending Unavailable NONE, XXXX Referring Unavailable Tam Vallejo Attending Unavailable NONE, XXXX Referring Unavailable IHSAN, FORREST Attending Unavailable IHSAN, FORREST Referring Unavailable IHSAN, FORREST Attending Unavailable IHSAN, FORREST Attending Unavailable Allergies Allergy Classification Reported Allergen(s) Allergy Type Date of Onset Reaction(s) Facility (1 source) No Known Medication Allergies; Translations: [No Known Medication Allergies] Propensity to adverse reactions (disorder) [facility] Repository Medications Current Medications Medication Drug Class(es) Dates Sig (Normalized) Sig (Original) amLODIPine 5 mg oral tablet (10 sources) Dihydropyridine Calcium Channel Yessica Start: 01-20-2023 take 1 tablet by mouth once daily amLODIPine 5 mg Tab 5 mg = 1 tab(s), Oral, Daily, # 30 tab(s), Refills(s) 0 Start Date: 12/16/23 Status: Ordered End: 07-17-2024 take 1 tablet by mouth once daily amLODIPine (Norvasc) 10 MG tablet Take 10 mg by mouth Daily 07/17/2024 Discontinued Comment on above: Take 1 tablet by caty th every afternoon. ascorbic acid 500 mg chewable tablet (8 sources) Vitamin C ascorbic acid (Vitamin C) 500 MG chewable tablet Chew 500 mg in the morning. Active Comment on above: Take 500 mg by mouth once daily. aspirin 81 mg delayed release oral tablet (11 sources) Platelet Aggregation Inhibitor, Nonsteroidal Anti-inflammatory Drug Start: 05-12-2023 aspirin 81 mg Oral EC Tab Refills(s) 0 Start Date: 05/12/23 Status: Ordered aspirin 81 MG ch ewable tablet Chew 81 mg in the morning. Active take 81 mg by mouth once daily B SUSANNA ASPIRIN ORAL Take 81 mg by mouth once daily. 0 Active Comment on above: Take 81 mg by mouth once daily. atorvastatin 40 mg oral tablet (8 sources) HMG-CoA Reductase Inhibitor Start: 12-16-19 take 1 tablet by mouth once daily Lipitor 40 mg Tab 40 mg = 1 tab(s), Oral, Daily, # 30 tab(s), Refills(s) 6, Pharmacy: [id number], 152, cm, 12/16/23 15:27:00 EDT, Height/Length Dosing, 69.1, kg, 12/16/23 15:27:00 EDT, Weight Dosing Start Date: 12/19/23 Status: Ordered calcium carbonate (Tums) 250 mg (nooksack 100 mg) chewable split tablet (6 sources) calcium carbonat e (Tums) 250 mg (nooksack 100 mg) chewable split tablet Take 500 mg by mouth in the morning. Active cetirizine hydrochloride 10 mg oral tablet (15 sources) Histamine-1 Receptor Antagonist Start: 09-07-19 take 1 tablet by mouth once daily cetirizine 10 mg Tab 10 mg = 1 tab(s), Oral, Daily, # 30 tab(s), Refills(s) 0 Start Date: 09/06/22 Status: Ordered Comment on above: Take 1 tablet by caty th every afternoon. cholecalciferol 0.025 mg oral tablet (8 sources) Vitamin D take 1 tablet by mouth in the morning cholecalciferol (Vitamin D-3) 25 MCG (1000 UT) tablet Take 1,000 Units by mouth in the morning. Active Cholecalciferol, Vitamin D3, (VITAMIN D) 25 mcg (1,000 unit) cap Take 1,000 Units by mouth once daily. 0 Active Comment on above: Take 1,000 Units by mouth once daily. ezetimibe 10 mg oral tablet (6 sources) Dietary Cholesterol Absorption Inhibitor Start: 12-16-2023 End: 07-17-2024 Zetia 10 mg Tab Refills(s) 0 Start Date: 12/16/23 Status: Ordered Start: 04-10-2023 take 1 tablet by mouth once ez etimibe (ZETIA) 10 mg tablet Take 1 tablet by mouth every afternoon. 0 04/10/2023 Active Comment on above: Take 1 tablet by caty th every afternoon. glimepiride 2 mg oral tablet (13 sources) Sulfonylurea Start: 2022 glimepiride (Amaryl) 2 MG tablet 04/18/2023 Active Comment on above: Take 2 mg by [...] in the CT contrast administration guidelines link. melatonin 10 mg oral tablet (8 sources) take 1 tablet by mouth at bedtime melatonin 10 MG tablet Take 10 mg by mouth at bedtime Active Comment on above: Take 10 mg by mouth daily at bedtime. metFORMIN hydrochloride 500 mg oral tablet (13 sources) Biguanide Start: 2022 metformin 500 mg Tab Refills(s) 0 Start Date: 01/20/23 Status: Ordered Comment on above: Take 1 tablet by caty th every 12 hours. 24 hr metoprolol succinate 50 mg extended release oral tablet (8 sources) beta-Adrenergic Yessica Start: 2023 take 1 tablet by mouth once daily metoprolol succinate 50 mg ER Tab 50 mg = 1 tab(s), Oral, Daily, # 30 tab(s), Refills(s) 6, Pharmacy: [facility] #[id number], 152, cm, 12/16/23 15:27:00 EDT, Height/Length Dosing, 69.1, kg, 12/16/23 15:27:00 EDT, Weight Dosing Start Date: 12/19/23 Status: Ordered Start: 12-16-2023 take 1 tablet by caty th once daily metoprolol succinate 25 mg ER Tab 25 mg = 1 tab(s), Oral, Daily, # 30 tab(s), Refills(s) 6, Pharmacy: [facility] #[id number], 152, cm, 12/16/23 15:27:00 EDT, Height/Length Dosing, 69.1, kg, 12/16/23 15:27:00 EDT, Weight Dosing Start Date: 12/16/23 Status: Ordered Multiple Vitamin (Multi-Vitamin) tablet (6 sources) take 1 tablet by mouth in the morning Multiple Vitamin (Multi-Vitamin) tablet Take 1 tablet by mouth in the morning. Active omeprazole 20 mg delayed release oral capsule (13 sources) Proton Pump Inhibitor Start: 01-21-20 omeprazole 20 mg Cap-DR 20 mg = 1 cap(s), Refills(s) 0 Start Date: 01/20/23 Status: Ordered Comment on above: Take 20 mg by mouth once daily. pramipexole dihydrochloride 1 mg oral tablet (10 sources) Nonergot Dopamine Agonist Start: 04-04-20 take 1 tablet by mouth in the morning pramipexole (Mirapex) 1 MG tablet Take 1 mg by mouth in the morning. 04/04/2023 Active Start: 04-04-2023 take 1 tablet by mouth once pr amipexole (MIRAPEX) 1 mg tablet Take 1 tablet by mouth every afternoon. 0 04/04/2023 Active Comment on above: Take 1 tablet by caty th every afternoon. Completed/Discontinued Medications Medication Drug Class(es) Dates Sig (Normalized) Sig (Original) calcium carbonate 500 mg oral tablet (2 sources) take 500 mg by mouth once daily calcium carbonate (CALCIUM 500 ORAL) Take 500 mg by mouth once daily. 0 Active Comment on above: Take 500 mg by mouth once daily. diclofenac sodium 75 mg delayed release oral tablet (3 sources) Nonsteroidal Anti-inflammatory Drug Start: 02-09-2023 End: 07-17-2024 take 1 tablet by mouth twice daily as needed diclofenac (Voltaren) 75 MG EC tablet Take 75 mg by mouth 2 (two) times a day as needed. 02/09/2023 07/17/2024 Discontinued 60 actuat fluticasone propionate 0.1 mg/actuat / salmeterol 0.05 mg/actuat dry powder inhaler (7 sources) Corticosteroid, beta2-Adrenergic Agonist Start: 04-06-2023 take [...] a day. lisinopril 40 mg oral tablet (15 sources) Angiotensin Converting Enzyme Inhibitor Start: 03-17-2023 take 1 tablet by mouth once lisinopril (ZESTRIL) 40 mg tablet Take 1 tablet by mouth every afternoon. 0 03/17/2023 Active Start: 09-06-2022 take 1 tablet by caty th once daily lisinopril 10 mg Tab 10 mg = 1 tab(s), Oral, Daily, # 30 tab(s), Refills(s) 0 Start Date: 09/06/22 Status: Ordered take 1 tablet by caty th in the morning lisinopril 40 MG tablet Take 40 mg by mouth in the morning. Active Comment on above: Take 1 tablet by caty th every afternoon. multivitamin (DAILY MULTI-VITAMIN) tablet (2 sources) take 1 tablet by mouth once daily multivitamin (DAILY MULTI-VITAMIN) tablet Take 1 tablet by mouth once daily. 0 Active Comment on above: Take 1 tablet by caty th once daily. Problems Active Problems Problem Classification Problem Date Documented Da te Episodic/Chronic Administrative/social admission (2 sources) Patient encounter status; Translations: [Person consulting for explanation of examination or test findings] 08-15-2024 Episodic Aortic; peripheral; and visceral artery aneurysms (5 [...] disease (4 sources) Atherosclerotic heart disease of [place] coronary artery without angina pectoris; Translations: [Coronary atherosclerosis] Onset: 3 Chronic Diabetes mellitus with complications (4 sources) Type 2 diabetes mellitus with hyperglycemia; Translations: [TYPE 2 DM W/HYPERGLYCEMIA] Onset: 3 Chronic Diabetes mellitus without complication (2 sources) Type 2 diabetes mellitus without complications; Translations: [Type 2 diabetes mellitus without complications] Onset: 4 Chronic Disorders of lipid metabolism (5 sources) Hyperlipidemia, unspecified; Translations: [Hyperlipidemia] Onset: 3 Chronic Essential hypertension (5 sources) Essential hypertension; Translations: [Essential (primary) hypertension] [...] Episodic Other lower respiratory disease (2 sources) Shortness of breath; Translations: [Shortness of Breath] Onset: 4 Episodic Other lower respiratory disease (2 sources) [...] malignant neoplasm of breast] Onset: 2 Episodic Ovarian cyst (4 sources) Cyst of left ovary; Translations: [Unspecified ovarian cyst, left side] 07-17-2024 Episodic Residual codes; unclassified (2 sources) Tobacco use; Translations: [Tobacco use] Onset: 4 Episodic Substance-related disorders (1 source) Nicotine dependence, cigarettes, uncomplicated; Translations: [NICOTINE DEPEND CIGARETTES UNCOMP] Onset: 3 Chronic Unclassified (1 source) COUGH, UNSPECIFIED; Translations: [COUGH, UNSPECIFIED] Onset: 3 Unclassified (1 source) Thoracoabdominal aortic aneurysm, without rupture, unspecified; Translations: [Thoracoabdominal aortic aneurysm, without rupture, unspecified] Onset: Past or Other Problems Problem Classification Problem [...] Test Name Value Interpretation Reference Range Facility US PELVIC COMPLETE W/ TVon 0 08-07-2024 US PELVIC COMPLETE W/ TV EXAM: US PELVIC COMPLETE W/ TV HISTORY: Follow up ovarian cyst. COMPARISON: Pelvic ultrasound 11/16/2023. TECHNIQUE: Two-dimensional transabdominal grayscale ultrasound imaging of the pelvis was performed. Transvaginal was performed. FINDINGS: UTERUS 6.1 x 2.3 x 4.7 cm The uterus is anteverted in position and demonstrates a mildly heterogeneous echotexture. There are calcifications visualized. ENDOMETRIUM 0.4 cm The endometrium demonstrates a normal, homogeneous echotexture. The bilateral ovaries are not visualized. There is a 6.3 cm simple cyst within the left adnexa. No fluid is present within the cul-de-sac. IMPRESSION: 1. Mildly heterogeneous uterus. 2. Simple cyst within the left adnexa. This cyst appears has slightly increased in size when compared to the prior study. 3. Bilateral ovaries not visualized. Electronically Signed:Lissett y signed by ROBLES MADSEN II, MD, PHD at 09-Aug-2024 08:45:09 AM [facility] Normal Not Available Comment on above: Order Comment: US PE LVIS-TRANSVAG IF INDICATED No LMP recorded. Patient is postmenopausal. Heart and Vascular Office/Cl [facility] Noteon 07-20-2024 Heart and Vascular Office/Clinic Note Heart and Vascular Office/Clinic Note Chief Complaint 6 month follow up HPI Staff 6m follow up. History of Present Illness The patient is a pleasant 84-year-old female with past cardiac history of coronary artery disease, PCI to the RCA with 2 Palmaz Bernie BMS in 1995, extensive thoracoabdominal aortic aneurysm, hypertension, diabetes, current smoker of at least a pack a day, who presents today for a scheduled follow-up appointment. She was seen by myself last time in November 2023. Following the appointment, I recommended cardiac workup included a transthoracic echocardiogram along with an MPI due to issues with shortness of breath. The patient had a myocardial perfusion imaging study in December 2023, which demonstrated large inferior reversibility, along with depressed LVEF in the range of 46%. Transthoracic echocardiogram demonstrated normal LVEF of 55% with mild diastolic dysfunction and no significant valvular disease and normal right-sided pressures. For some reason, these results were not communicated to me. She presents today with similar symptoms of chronic shortness of breath. Not quite physically active. Unfortunately, continues to smoke. Review of Systems PHQ Score Initial Depression Screen Score: 0 SCORE ROS - Provider Constitutional: no fever, no [...] recurrent infections Physical Exam Vitals & Measurements T: 36.8 ???C(Tympanic) HR: 92(Peripheral) RR: 22 BP: 128/80 SpO2: 94% HT: 60 in HT: 152 cm WT: 72 kg WT: 158.733 lb BMI: 31.16 General: alert, no acute distress Neck: Supple, [...] follow-up pelvic ultrasound as indicated. [1] Assessment/Plan 1. CAD in [place] artery (I25.10: Atherosclerotic heart disease of [place] coronary artery without angina pectoris) Exertional dyspnea in a patient with known history of coronary artery disease. Stress test demonstrated high risk criteria with large inferior reversibility and slightly depressed LVEF. At this juncture, recommendations are for invasive assessment with a left heart catheterization. Risks and benefits of the procedure, with risks including but not limited to, myocardial infarction, stroke, , emergent transfer to higher level facility for possible coronary artery bypass grafting surgery, radiation exposure, kidney failure, blood vessel injury, prolonged hospitalization were explained to the patient in detail, the patient did not agree to proceed due to fear of complications. In this particular scenario, I am going to start her on Norvasc 2.5 mg daily for antianginal and antihypertensive purposes, Plavix 75 mg daily. Continue Lipitor. Will update fasting lipids. Smoking cessation advised. 2. HTN (hypertension) (I10: Essential (primary) hypertension) Blood pressure is elevated, not at goal for this patient with history of #3. Norvasc will be started. 3. AAA (abdominal aortic aneurysm) (I71.40: Abdominal aortic aneurysm, without rupture, unspecified) Follow-up CTA of the abdominal aorta will be ordered. Orders: atorvastatin, 40 mg = 1 tab(s), Oral, Daily, # 30 tab(s), Refills(s) 6, [facility]acy: [facility] (more content not included)... Normal [facility] Comment on above: Result Comment: Elec tronically Signed By: Genevieve CURRIE, Tam Spain\.br\Date and Time Signed: 07/20/24 10:27 EST Office Visiton 01-20-2024 Follow-up visit [id number] Beth Starkey 1940 F Date Provider Department Center 01/20/2024 CALE RAYMOND Family History Problem Relation Age of Onset Heart attack Father Diabetes Sister Coronary artery disease Brother Aneurysm Brother Diabetes Brother Family Status - Relation Status Age at Father Sister Brother Level of Service:98803 [facility] OFFICE/OUTPATIENT ESTABLISHED MOD MDM 30 MIN Reason for Visit and Comments: Hyperlipidemia [182] Hypertension [041587] - Pt had a abnormal stress. Patient used the restroom in the ED right before apt and had a fall. She denies lightheadedness/dizz iness and syncope. She denies hiting her head. Shortness of Breath [132506] Normal [facility] Office Visiton 01-09-2024 Follow-up visit [id number] Beth Starkey 1940 F Date Provider Department Center 01/09/2024 CALE RAYMOND Family History Problem Relation Age of Onset Heart attack Father Diabetes Sister Coronary artery disease Brother Aneurysm Brother Diabetes Brother Family Status - Relation Status Age at Father Sister Brother Level of Service:83912 [place] OFFICE/OUTPATIENT NEW MODERATE MDM 45 MINUTES Reason for Visit and Comments: New Patient [632] - Pt complains of sob. Normal [facility] Heart and Vascular Office/Cl inic Noteon 12-16-2023 [...] aneurysm, without rupture, unspecified) 2. CAD in [place] artery (I25.10: Atherosclerotic heart disease of [place] coronary artery without angina pectoris) 3. HTN [...] CURRIE, Edinson Kuhn 09/24/2022 10:55 EDT Normal [facility] Comment on above: Result Comment: Elec tronically Signed By: Genevieve CURRIE, Tam Perez.ede\Date and Time Signed: 12/16/23 15:48 EDT CNOVon 05-03-2023 CNOV Office Visit (VASSMEdith) BETH STARKEY ([id number]) 1940 F Date Time Provider Department 05/03/23 12:00 PM JENA HICKS During your visit today, we recorded the following information about you: Temperature Pulse Respiration Blood pressure 98.3 degrees 86/minute 16/minute 103/59 Weight Height 65.8 kg 1.524 m Jena Hicks MD 05/03/2023 3:31 PM Signed [facility] DEPARTMENT OF VASCULAR SURGERY OUTPATIENT VISIT DATE [...] PHYSICAL E (more content not included)... Normal [facility] CTA ABD/PELV WO/W IVCONon CTA ABD/PELV WO/W IVCON * * *Final Report* * * DATE OF EXAM: May 03 2023 1:27PM [facility] 0467 - CTA ABD/PELV WO/W IVCON / [...] the esophagus. No ostial dilation/diverticulu m of Kojuan carlos. Visceral Branch Vessels: patent with likely moderate [...] stable BONES: degenerative changes of the spine Process Engineering Intern (topogram) images: No additional findings. IMPRESSION: * [...] (more content not included)... Invalid Interpretation Code [facility] CTA CHEST (NONGATED) WO/W IV CONon 05-03-2023 CTA CHEST (NONGATED) WO/W IVCON * * *Final Report* * * DATE OF EXAM: May 03 2023 1:27PM [facility] 0124 - CTA CHEST (NONGATED) WO/W IVCON [...] the esophagus. No ostial dilation/diverticulu m of Kofiorellaereesteban. Visceral Branch Vessels: patent with likely moderate [...] stable BONES: degenerative changes of the spine Process Engineering Intern (topogram) images: No additional findings. IMPRESSION: * [...] (more content not included)... Invalid Interpretation Code [facility] HISTORY PHYSICALon HISTORY PHYSICAL HNO ID: [id number] Author: Jena Hicks MD Service: ? Author Type: Physician Type: HANDP Filed: 05/03/2023 3:31 PM Note Text: [facility] DEPARTMENT OF VASCULAR SURGERY OUTPATIENT VISIT DATE [...] EOM, pupils (more content not included)... Normal [facility] Charlie 04-25-2023 CNPN Telephone (PODCCP) BETH STARKEY ([id number]) 1940 F Date Time Provider Department 04/25/23 NO PCP PODCCP During your visit today, we recorded the following information about you: Alondra Quiros 04/25/2023 4:23 PM Signed Reason for call: Ms Starkey called,and she would like to schedule an appointment with vascular surgery Referred by Dr Judit [facility] and cell number: [phone] Diagnosis: AAA Kind Regards Alondra Allergies As of Date: 04/25/2023 (Not on File) Date Reviewed: Never Reviewed Reason for Visit: Appointment [186] Problem List As Of Date: 04/25/2023 (None) Encounter Status:Closed by ALONDRA QUIROS on 04/25/23 [facility] CNPNon 04-22-2023 CNPN Telephone (REFPHY) BETH STARKEY ([id number]) 1940 F Date Time Provider Department 04/22/23 NO ONE (HISTORICAL) REFPHY During your visit today, we recorded the following information about you: Patrizia Orozco 04/22/2023 10:06 AM Signed Patient: Beth Starkey Date of : 1940 Patient phone number: [phone] Referring Provider for the encounter: Marck Tate MD Requesting Provider: N/A Reason for requesting visit (RFV/signs and symptoms/diagnosis): Sent Telephone Encounter - updated tracking. Person calling: caregiver: Patrizia Return call to: self Medical Records/Insurance Card scanned into [employer]: Yes Comments: N/A Allergies As of Date: 04/22/2023 (Not on File) Date Reviewed: Never Reviewed Reason for Visit: External Referrals/resources [909] Problem List As Of Date: 04/22/2023 (None) Encounter Status:Closed by PATRIZIA OROZCO on 04/22/23 [facility] CHEMISTRYOrdered By: SYSTEM SYSTEM on 09-24-2022 Creatinine [Mass/Vol] 0.8 mg/dL Normal 0.5 - 1.3 mg/dL [facility] Remisol GFR/1.73 sq M.predicted among non-blacks MDRD (S/P/Bld) [Vol rate/Area] 74 mL/min/1.73 m2 Normal >=59mL/min/1. 73 m2 [facility] Chem S CT CHEST WO CONon 08-02-2022 [...] Date: 2022-08-02 10:52 Normal [facility] C. DIFF PCRon 07-28-2022 C. DIFFICILE PCR Negative Normal NEGATIVE [facility] Comment on above: Performed By: #### C DIFPOC #### [facility] [address] [place] [address] Dr. Spencer Braun OCC BLD IMMUNO SCREENon 03-0 OCCULT BLOOD Negative Normal NEGATIVE [facility] Comment on above: Performed By: #### C BC #### [facility] [address] [place] [address] Dr. Spencer Braun INSULINon 07-15-2022 Insulin 17.7 uIU/mL Normal 2.6-24.9 [facility] Comment on above: Performed By: #### I NSULIN ####[facility] [id number] [address]Dr. Spencer Braun BNPon 07-14-2022 Natriuretic peptide B (Bld) [Mass/Vol] 197.0 pg/mL Normal <=1,800.0 [facility] Comment on above: Performed By: #### B MACHINE STACKER, LIPID, CMP, T7, TSH #### [facility] [address] [place] [address] Dr. Spencer Braun CBC AUTO DIFFon 07-14-2022 BASO # 0.1 103/ul Normal 0.0-0.1 [facility] Comment on above: Performed By: #### C BC #### [facility] [address] [place] [address] Dr. Spencer Braun Basophils/100 WBC (Bld) 0.9 % Normal 0.2-2.0 [facility] Comment on above: Performed By: #### C BC #### [facility] [address] [place] [address] Dr. Spencer Braun EO # 0.2 103/ul Normal 0.0-0.7 [facility] Comment on above: Performed By: #### C BC #### [facility] [address] [place] [address] Dr. Spencer Braun Eosinophils/100 WBC (Bld) 2.5 % Normal 0.9-7.0 [facility] Comment on above: Performed By: #### C BC #### [facility] [address] [place] [address] Dr. Spencer Braun Erythrocyte distribution width (RBC) [Ratio] 13.8 % Normal 11.0-15.0 [facility] Comment on above: Performed By: #### C BC #### [facility] [address] [place] [address] Dr. Spencer Braun Hematocrit (Bld) [Volume fraction] 45.1 % Normal 36.0-48.0 [facility] Comment on above: Performed By: #### C BC #### [facility] [address] [place] [address] Dr. Spencer Braun Hemoglobin (Bld) [Mass/Vol] 14.7 g/dL Normal 12.0-16.0 [facility] Comment on above: Performed By: #### C BC #### [facility] [address] [place] [address] Dr. Spencer Braun IG # 0.04 10e3/ul Critically high 0.00-0.03 [facility] Comment on above: Performed By: #### C BC #### [facility] [address] [place] [address] Dr. Spencer Braun IG % 0.5 % Normal 0.0-0.5 [facility] Comment on above: Performed By: #### C BC #### [facility] [address] [place] [address] Dr. Spencer Braun LYMPH # 1.6 103/ul Normal 1.2-3.8 [facility] Comment on above: Performed By: #### C BC #### [facility] [address] [place] [address] Dr. Spencer Braun Lymphocytes/100 WBC (Bld) 20.4 % Critically low 20.5-60.0 [facility] Comment on above: Performed By: #### C BC #### [facility] [address] [place] [address] Dr. Spencer Braun MANUAL DIFF REQ NO Normal [facility] Comment on above: Performed By: #### C BC #### [facility] [facility] [address] [place] [address] Dr. Spencer Braun MCH (RBC) [Entitic mass] 28.8 pg Normal 26.7-34.0 [facility] Comment on above: Performed By: #### C BC #### [facility] [address] [address] [address] Spencer Braun MCHC (RBC) [Mass/Vol] 32.6 g/dL Normal 29.9-35.2 [facility] Comment on above: Performed By: #### C BC #### [facility] [id number] Spencer Braun MCV (RBC) [Entitic vol] 88.3 fL Normal 81.0-99.0 [facility] Comment on above: Performed By: #### C BC #### [facility] [address] [address] [address] Spencer Braun MONO # 0.5 103/ul Normal 0.3-0.8 [facility] Comment on above: Performed By: #### C BC #### [facility] [address] [place] [address] Dr. Spencer Braun Monocytes/100 WBC (Bld) 6.5 % Normal 1.7-12.0 [facility] Comment on above: Performed By: #### C BC #### [facility] [address] [place] [address] Dr. Spencer Braun NEUT # 5.4 103/ul Normal 1.4-6.5 [facility] Comment on above: Performed By: #### C BC #### [facility] Laboratory [address] [place], [place] [id number] Dr. Spencer Braun Neutrophils/100 WBC (Bld) 69.2 % Normal 43.0-75.0 [facility] Comment on above: Performed By: #### C BC #### [facility] Laboratory [address] [place], [place] [id number] Dr. Spencer Braun Platelet mean volume (Bld) [Entitic vol] 9.1 fL Critically low 9.5-13.5 [facility] Comment on above: Performed By: #### C BC #### [facility] [address] [place] [address] Dr. Spencer Braun PLT 190 103/ul Normal 150-450 [facility] Comment on above: Performed By: #### C BC #### [facility] [address] [address] [address] Spencer Braun RBC 5.11 106/ul Normal 4.20-5.40 [facility] Comment on above: Performed By: #### C BC #### [facility] [address] [address] [address] Spencer Braun WBC 7.7 103/ul Normal 4.0-11.0 [facility] Comment on above: Performed By: #### C BC #### [facility] [address] [address] [address] Spencer Braun FREE THYROXINE INDEX T7on FTI 2.87 Normal 1.30-4.50 [facility] Comment on above: Performed By: #### B MACHINE STACKER, LIPID, CMP, T7, TSH ####[facility] [address] [address]DrManish Braun T3U 33.0 % Normal 30.0-39.0 [facility] Comment on above: Performed By: #### B MACHINE STACKER, LIPID, CMP, T7, TSH ####[facility] [address] [phone] Braun T4 [Mass/Vol] 8.70 ug/dL Normal 4.80-13.90 [facility] Comment on above: Performed By: #### B MACHINE STACKER, LIPID, CMP, T7, TSH ####[facility] [address] [phone] Braun GLYCOHEMOGLOBIN A1Con 2022 ADA RECOMMENDATION SEE BELOW Normal [facility] Comment on above: Result Comment: ADA RECOMMENDED LIMIT 4.0 - 6.0 ADA THERAPEUTIC TARGET < 7.0 ACTION SUGGESTED > 7.0 Performed By: #### A 1C ####[facility] [address] [address]DrManish Braun Glucose [Mass/Vol] 123 mg/dL Normal [facility] Comment on above: Performed By: #### A 1C ####[facility] [address] [address]DrManish Braun HbA1c (Bld) [Mass fraction] 5.9 % Normal 4.5-6.2 [facility] Comment on above: Performed By: #### A 1C ####[facility] [address] [id number] Braun IRONon 07-14-2022 Iron [Mass/Vol] 70.0 ug/dL Normal 50.0-170.0 [facility] Comment on above: Performed By: #### V ITAD, IRON #### [facility] [address] [place], [place] [address] Dr. Spencer Braun LIPID PROFILEon 07-14-2022 CHOL-HDL RATIO NORM SEE BELOW Normal [facility] Comment on above: Result Comment: 3.3 - 4.4 LOW RISK 4.4 - 7.1 AVERAGE RISK 7.1 - 11.0 MODERATE RISK >11.0 HIGH RISK Performed By: #### B MACHINE STACKER, LIPID, CMP, T7, TSH ####[facility] [address] [phone]. Spencer Braun Cholesterol [Mass/Vol] 180 mg/dL Normal <=200 [facility] Comment on above: Performed By: #### B MACHINE STACKER, LIPID, CMP, T7, TSH ####[facility] [address] [phone]. Spencer Braun Cholesterol in HDL [Mass/Vol] 50 mg/dL Normal 40-60 [facility] Comment on above: Performed By: #### B MACHINE STACKER, LIPID, CMP, T7, TSH ####[facility] [address] [phone]. Spencer Braun Cholesterol in LDL [Mass/Vol] 105.8 mg/dL Normal [facility] Comment on above: Performed By: #### B MACHINE STACKER, LIPID, CMP, T7, TSH ####[facility] [address] [phone]. Spencer Braun Cholesterol.total/Ch olesterol in HDL [Mass ratio] 3.6 {ratio} Normal [facility] Comment on above: Performed By: #### B MACHINE STACKER, LIPID, CMP, T7, TSH ####[facility] [address] [phone]. Spencer Braun HDL NORMAL > or = 60 mg/dl - LOW CARDIOVASCULAR RISK <40 mg/dl - HIGH CARDIOVASCULAR RISK Normal [facility] Comment on above: Performed By: #### B MACHINE STACKER, LIPID, CMP, T7, TSH ####[facility] [address] [address]Dr. Spencer Braun LDL CALC NORMAL SEE BELOW Normal [facility] Comment on above: Result Comment: <100 mg/dl OPTIMAL 100 - 129 mg/dl NEAR OR ABOVE OPTIMAL 130 - 159 mg/dl BORDERLINE HIGH 160 - 189 mg/dl HIGH >190 mg/dl VERY HIGH Performed By: #### B MACHINE STACKER, LIPID, CMP, T7, TSH ####[facility] [address] [address]DrManish Braun Triglyceride [Mass/Vol] 121 mg/dL Normal <=150 [facility] Comment on above: Performed By: #### B MACHINE STACKER, LIPID, CMP, T7, TSH ####[facility] [address] [address]DrManish Braun VLDL CALC 24.2 mg/dL Normal [facility] Comment on above: Performed By: #### B MACHINE STACKER, LIPID, CMP, T7, TSH ####[facility] [address] [address]Dr. Spenecr Braun PROF 14(COMP METB)on 023 Albumin [Mass/Vol] 3.8 g/dL Normal 3.4-5.0 [facility] Comment on above: Performed By: #### B MACHINE STACKER, LIPID, CMP, T7, TSH #### [facility] [address] [address] [address] Spencer Braun Albumin/Globulin [Mass ratio] 1.0 {ratio} Normal [facility] Comment on above: Performed By: #### B MACHINE STACKER, LIPID, CMP, T7, TSH #### [facility] [address] [address] [address] Spencer Braun ALP [Catalytic activity/Vol] 135 U/L Critically high 46-116 [facility] Comment on above: Performed By: #### B MACHINE STACKER, LIPID, CMP, T7, TSH #### [facility] [address] [address] [address] Spencer Braun ALT [Catalytic activity/Vol] 20 U/L Normal 14-59 [facility] Comment on above: Performed By: #### B MACHINE STACKER, LIPID, CMP, T7, TSH #### [facility] [address] [place] [address] Dr. Spencer Braun Anion gap [Moles/Vol] 8.4 mmol/L Normal [facility] Comment on above: Performed By: #### B MACHINE STACKER, LIPID, CMP, T7, TSH #### [facility] [address] [place] [address] Dr. Spencer Braun AST [Catalytic activity/Vol] 14 U/L Critically low 15-37 [facility] Comment on above: Performed By: #### B MACHINE STACKER, LIPID, CMP, T7, TSH #### [facility] [address] [place] [address] Dr. Spencer Braun Bilirubin [Mass/Vol] 0.4 mg/dL Normal 0.2-1.0 [facility] Comment on above: Performed By: #### B MACHINE STACKER, LIPID, CMP, T7, TSH #### [facility] [address] [place] [address] Dr. Spencer Braun Calcium [Mass/Vol] 9.5 mg/dL Normal 8.5-10.1 [facility] Comment on above: Performed By: #### B MACHINE STACKER, LIPID, CMP, T7, TSH #### [facility] [address] [place] [address] Dr. Spencer Braun Chloride [Moles/Vol] 104 mmol/L Normal 98-107 [facility] Comment on above: Performed By: #### B MACHINE STACKER, LIPID, CMP, T7, TSH #### [facility] [address] [place] [address] Dr. Spencer Braun CO2 [Moles/Vol] 32.0 mmol/L Normal 21.0-32.0 [facility] Comment on above: Performed By: #### B MACHINE STACKER, LIPID, CMP, T7, TSH #### [facility] [address] [place] [address] Dr. Spencer Braun Creatinine [Mass/Vol] 0.72 mg/dL Normal 0.55-1.02 [facility] Comment on above: Performed By: #### B MACHINE STACKER, LIPID, CMP, T7, TSH #### [facility] [address] [address] [address] Spencer Braun EGFR-AF LUXEMBOURGER >60 Normal >=60 [facility] Comment on above: Performed By: #### B MACHINE STACKER, LIPID, CMP, T7, TSH #### [facility] [address] [address] [address] Spencer Braun EGFR-NON AF LUXEMBOURGER >60 Normal >=60 [facility] Comment on above: Performed By: #### B MACHINE STACKER, LIPID, CMP, T7, TSH #### [facility] [address] [place] [address] Dr. Spencer Braun Globulin (S) [Mass/Vol] 3.9 g/dL Normal [facility] Comment on above: Performed By: #### B MACHINE STACKER, LIPID, CMP, T7, TSH #### [facility] [address] [address] [address] Spencer Braun Glucose [Mass/Vol] 127 mg/dL Critically high 74-106 [facility] Comment on above: Performed By: #### B MACHINE STACKER, LIPID, CMP, T7, TSH #### [facility] [address] [address] [address] Spencer Braun Potassium [Moles/Vol] 4.4 mmol/L Normal 3.5-5.1 [facility] Comment on above: Performed By: #### B MACHINE STACKER, LIPID, CMP, T7, TSH #### [facility] [address] [address] [address] Spencer Braun Protein [Mass/Vol] 7.7 g/dL Normal 6.4-8.2 [facility] Comment on above: Performed By: #### B MACHINE STACKER, LIPID, CMP, T7, TSH #### [facility] [address] [address] [address] Spencer Braun Sodium [Moles/Vol] 140 mmol/L Normal 136-145 [facility] Comment on above: Performed By: #### B MACHINE STACKER, LIPID, CMP, T7, TSH #### [facility] [address] [place] [address] Dr. Spencer Braun Urea nitrogen [Mass/Vol] 18.0 mg/dL Normal 7.0-18.0 [facility] Comment on above: Performed By: #### B MACHINE STACKER, LIPID, CMP, T7, TSH #### [facility] [address] [place] [address] Dr. Spencer Braun Urea nitrogen/Creatinine [Mass ratio] 25.0 mg/mg Normal [facility] Comment on above: Performed By: #### B MACHINE STACKER, LIPID, CMP, T7, TSH #### [facility] [address] [place] [address] Dr. Spencer Braun TSHon 07-14-2022 TSH 1.760 uIU/mL Normal 0.358-3.740 [facility] Comment on above: Performed By: #### B MACHINE STACKER, LIPID, CMP, T7, TSH #### [facility] [address] [place] [address] Dr. Spencer Braun VITAMIN D 25 OHon 07-14-2022 VIT D 25-OH 85.7 ng/mL Normal [facility] Comment on above: Performed By: #### V DEBORAH, IRON #### [facility] [address] [place] [address] Dr. Spencer Braun VIT D RANGES SEE BELOW Normal [facility] Comment on above: Result Comment: <20 ng/mL Vit D deficient 20 - <30 ng/mL Vit D insufficient 30 - 100 ng/mL Vit D sufficient >100 ng/mL Potential Toxicity Performed By: #### V ITKINGS, IRON #### [facility] [address] [place] [address] Dr. Spencer Braun CBC AUTO DIFFon 04-30-2022 BASO # 0.1 103/ul Normal 0.0-0.1 [facility] Comment on above: Performed By: #### C BC #### [facility] [address] [place] [address] Dr. Spencer Braun Basophils/100 WBC (Bld) 0.9 % Normal 0.2-2.0 [facility] Comment on above: Performed By: #### C BC #### [facility] [address] [place] [address] Dr. Spencer Braun EO # 0.2 103/ul Normal 0.0-0.7 [facility] Comment on above: Performed By: #### C BC #### [facility] [address] [place] [address] Dr. Spencer Braun Eosinophils/100 WBC (Bld) 2.1 % Normal 0.9-7.0 [facility] Comment on above: Performed By: #### C BC #### [facility] [address] [place] [address] Dr. Spencer Braun Erythrocyte distribution width (RBC) [Ratio] 13.9 % Normal 11.0-15.0 [facility] Comment on above: Performed By: #### C BC #### [facility] [address] [place] [address] Dr. Spencer Braun Hematocrit (Bld) [Volume fraction] 46.2 % Normal 36.0-48.0 [facility] Comment on above: Performed By: #### C BC #### [facility] [address] [place] [address] Dr. Spencer Braun Hemoglobin (Bld) [Mass/Vol] 15.1 g/dL Normal 12.0-16.0 [facility] Comment on above: Performed By: #### C BC #### [facility] [address] [place] [address] Dr. Spencer Braun IG # 0.05 10e3/ul Critically high 0.00-0.03 [facility] Comment on above: Performed By: #### C BC #### [facility] [address] [place] [address] Dr. Spencer Braun IG % 0.6 % Critically high 0.0-0.5 [facility] Comment on above: Performed By: #### C BC #### [facility] [address] [place] [address] Dr. Spencer Braun LYMPH # 1.7 103/ul Normal 1.2-3.8 [facility] Comment on above: Performed By: #### C BC #### [facility] [address] [place] [address] Dr. Spencer Braun Lymphocytes/100 WBC (Bld) 20.3 % Critically low 20.5-60.0 [facility] Comment on above: Performed By: #### C BC #### [facility] [address] [place] [address] Dr. Spencer Braun MANUAL DIFF REQ NO Normal [facility] Comment on above: Performed By: #### C BC #### [facility] [address] [place] [address] Dr. Spencer Braun MCH (RBC) [Entitic mass] 28.8 pg Normal 26.7-34.0 [facility] Comment on above: Performed By: #### C BC #### [facility] [address] [place] [address] Dr. Spencer Braun MCHC (RBC) [Mass/Vol] 32.7 g/dL Normal 29.9-35.2 [facility] Comment on above: Performed By: #### C BC #### [facility] [address] [place] [address] Dr. Spencer Braun MCV (RBC) [Entitic vol] 88.2 fL Normal 81.0-99.0 [facility] Comment on above: Performed By: #### C BC #### [facility] [address] [place] [address] Dr. Spencer Braun MONO # 0.6 103/ul Normal 0.3-0.8 [facility] Comment on above: Performed By: #### C BC #### [facility] [address] [place] [address] Dr. Spencer Braun Monocytes/100 WBC (Bld) 7.1 % Normal 1.7-12.0 [facility] Comment on above: Performed By: #### C BC #### [facility] [address] [place] [address] Dr. Spencer Braun NEUT # 5.7 103/ul Normal 1.4-6.5 [facility] Comment on above: Performed By: #### C BC #### [facility] [address] [address] [address] Spencer Braun Neutrophils/100 WBC (Bld) 69.0 % Normal 43.0-75.0 [facility] Comment on above: Performed By: #### C BC #### [facility] [address] [address] [address] Spencer Braun Platelet mean volume (Bld) [Entitic vol] 9.2 fL Critically low 9.5-13.5 [facility] Comment on above: Performed By: #### C BC #### [facility] [address] [address] [address] Spencer Braun PLT 180 103/ul Normal 150-450 [facility] Comment on above: Performed By: #### C BC #### [facility] [address] [address] [address] Spencer Braun RBC 5.24 106/ul Normal 4.20-5.40 [facility] Comment on above: Performed By: #### C BC #### [facility] [address] [address] [address] Spencer Braun WBC 8.2 103/ul Normal 4.0-11.0 [facility] Comment on above: Performed By: #### C BC #### [facility] [address] [address] [address] Spencer Braun FREE T3on 04-30-2022 FREE T3 2.98 pg/mlL Normal 2.18-3.98 [facility] Comment on above: Performed By: #### L IPID, TSH, T4, FT3, CMP ####[facility] [address] [address]Dr. Spencer Braun GLYCOHEMOGLOBIN A1Con 2021 ADA RECOMMENDATION SEE BELOW Normal [facility] Comment on above: Result Comment: ADA RECOMMENDED LIMIT 4.0 - 6.0 ADA THERAPEUTIC TARGET < 7.0 ACTION SUGGESTED > 7.0 Performed By: #### A 1C ####[facility] [address] [address]Dr. Spencer Braun Glucose [Mass/Vol] 134 mg/dL Normal [facility] Comment on above: Performed By: #### A 1C ####[facility] [address] [address]Dr. Spencer Braun HbA1c (Bld) [Mass fraction] 6.3 % Critically high 4.5-6.2 [facility] Comment on above: Performed By: #### A 1C ####[facility] [address] [address]Dr. Spencer Braun LIPID PROFILEon 04-30-2022 CHOL-HDL RATIO NORM SEE BELOW Normal [facility] Comment on above: Result Comment: 3.3 - 4.4 LOW RISK 4.4 - 7.1 AVERAGE RISK 7.1 - 11.0 MODERATE RISK >11.0 HIGH RISK Performed By: #### L IPID, TSH, T4, FT3, CMP ####[facility] [address] [address]Dr. Spencer Braun Cholesterol [Mass/Vol] 177 mg/dL Normal <=200 [facility] Comment on above: Performed By: #### L IPID, TSH, T4, FT3, CMP ####[facility] [address] [address]Dr. Spencer Braun Cholesterol in HDL [Mass/Vol] 56 mg/dL Normal 40-60 [facility] Comment on above: Performed By: #### L IPID, TSH, T4, FT3, CMP ####[facility] [address] [address]Dr. Spencer Braun Cholesterol in LDL [Mass/Vol] 97.8 mg/dL Normal [facility] Comment on above: Performed By: #### L IPID, TSH, T4, FT3, CMP ####[facility] [address] [address]Dr. Spencer Braun Cholesterol.total/Ch olesterol in HDL [Mass ratio] 3.2 {ratio} Normal [facility] Comment on above: Performed By: #### L IPID, TSH, T4, FT3, CMP ####[facility] [address] [id number]. Spencer Braun HDL NORMAL > or = 60 mg/dl - LOW CARDIOVASCULAR RISK <40 mg/dl - HIGH CARDIOVASCULAR RISK Normal [facility] Comment on above: Performed By: #### L IPID, TSH, T4, FT3, CMP ####[facility] [address] [address]Dr. Spencer Braun LDL CALC NORMAL SEE BELOW Normal [facility] Comment on above: Result Comment: <100 mg/dl OPTIMAL 100 - 129 mg/dl NEAR OR ABOVE OPTIMAL 130 - 159 mg/dl BORDERLINE HIGH 160 - 189 mg/dl HIGH >190 mg/dl VERY HIGH Performed By: #### L IPID, TSH, T4, FT3, CMP ####[facility] [address] [address]Dr. Spencer Braun Triglyceride [Mass/Vol] 116 mg/dL Normal <=150 [facility] Comment on above: Performed By: #### L IPID, TSH, T4, FT3, CMP ####[facility] [address] [address]Dr. Spencer Braun VLDL CALC 23.2 mg/dL Normal [facility] Comment on above: Performed By: #### L IPID, TSH, T4, FT3, CMP ####[facility] [address] [address]Dr. Spencer Braun PROF 14(COMP METB)on 022 Albumin [Mass/Vol] 3.8 g/dL Normal 3.4-5.0 [facility] Comment on above: Performed By: #### L IPID, TSH, T4, FT3, CMP ####[facility] [address] [address]Dr. Spencer Braun Albumin/Globulin [Mass ratio] 0.9 {ratio} Normal [facility] Comment on above: Performed By: #### L IPID, TSH, T4, FT3, CMP ####[facility] [address] [address]Dr. Spencer Braun ALP [Catalytic activity/Vol] 143 U/L Critically high 46-116 [facility] Comment on above: Performed By: #### L IPID, TSH, T4, FT3, CMP ####[facility] [address] [address]Dr. Spencer Braun ALT [Catalytic activity/Vol] 19 U/L Normal 14-59 [facility] Comment on above: Performed By: #### L IPID, TSH, T4, FT3, CMP ####[facility] [address] [place], [place] [address]Dr. Spencer Braun Anion gap [Moles/Vol] 12.1 mmol/L Normal [facility] Comment on above: Performed By: #### L IPID, TSH, T4, FT3, CMP ####[facility] [address] [place], [place] [address]Dr. Spencer Braun AST [Catalytic activity/Vol] 17 U/L Normal 15-37 [facility] Comment on above: Performed By: #### L IPID, TSH, T4, FT3, CMP ####[facility] [address] [place], [place] [address]Dr. Spencer Braun Bilirubin [Mass/Vol] 0.3 mg/dL Normal 0.2-1.0 [facility] Comment on above: Performed By: #### L IPID, TSH, T4, FT3, CMP ####[facility] [address] [place], [place] [address]Dr. Spencer Braun Calcium [Mass/Vol] 9.5 mg/dL Normal 8.5-10.1 [facility] Comment on above: Performed By: #### L IPID, TSH, T4, FT3, CMP ####[facility] [address] [place], [place] [address]Dr. Spencer Braun Chloride [Moles/Vol] 102 mmol/L Normal 98-107 [facility] Comment on above: Performed By: #### L IPID, TSH, T4, FT3, CMP ####[facility] [address] [address]Dr. Spencer Braun CO2 [Moles/Vol] 32.6 mmol/L Critically high 21.0-32.0 [facility] Comment on above: Performed By: #### L IPID, TSH, T4, FT3, CMP ####[facility] [address] [address]Dr. Spencer Braun Creatinine [Mass/Vol] 0.69 mg/dL Normal 0.55-1.02 [facility] Comment on above: Performed By: #### L IPID, TSH, T4, FT3, CMP ####[facility] [address] [place], [place] [address]Dr. Spencer Braun EGFR-AF LUXEMBOURGER >60 Normal >=60 [facility] Comment on above: Performed By: #### L IPID, TSH, T4, FT3, CMP ####[facility] [address] [place], [place] [address]Dr. Maemarek Braun EGFR-NON AF LUXEMBOURGER >60 Normal >=60 [facility] Comment on above: Performed By: #### L IPID, TSH, T4, FT3, CMP ####[facility] [address] [place], [place] [address]Dr. Spencer Braun Globulin (S) [Mass/Vol] 4.1 g/dL Normal [facility] Comment on above: Performed By: #### L IPID, TSH, T4, FT3, CMP ####[facility] [address] [place], [place] [address]Dr. Spencer Braun Glucose [Mass/Vol] 108 mg/dL Critically high 74-106 T [facility] Comment on above: Performed By: #### L IPID, TSH, T4, FT3, CMP ####[facility] [address] [place], [place] [address]Dr. Spencer Braun Potassium [Moles/Vol] 4.7 mmol/L Normal 3.5-5.1 [facility] Comment on above: Performed By: #### L IPID, TSH, T4, FT3, CMP ####[facility] [address] [address]Dr. Spencer Braun Protein [Mass/Vol] 7.9 g/dL Normal 6.4-8.2 [facility] Comment on above: Performed By: #### L IPID, TSH, T4, FT3, CMP ####[facility] [address] [address]Dr. Spencer Braun Sodium [Moles/Vol] 142 mmol/L Normal 136-145 [facility] Comment on above: Performed By: #### L IPID, TSH, T4, FT3, CMP ####[facility] [address] [address]Dr. Spencer Braun Urea nitrogen [Mass/Vol] 19.0 mg/dL Critically high 7.0-18.0 [facility] Comment on above: Performed By: #### L IPID, TSH, T4, FT3, CMP ####[facility] [address] [address]Dr. Spencer Braun Urea nitrogen/Creatinine [Mass ratio] 27.5 mg/mg Normal [facility] Comment on above: Performed By: #### L IPID, TSH, T4, FT3, CMP ####[facility] [address] [address]Dr. Spencer Braun T4on 04-30-2022 T4 [Mass/Vol] 8.30 ug/dL Normal 4.80-13.90 [facility] Comment on above: Performed By: #### L IPID, TSH, T4, FT3, CMP ####[facility] [address] [address]Dr. Spencer Braun TSHon 04-30-2022 TSH 1.777 uIU/mL Normal 0.358-3.740 [facility] Comment on above: Performed By: #### L IPID, TSH, T4, FT3, CMP ####[facility] [address] [address]Dr. Spencer Braun VITAMIN D 25 OHon 04-30-2022 VIT D 25-OH 72.1 ng/mL Normal [facility] Comment on above: Performed By: #### V ITAD #### [facility] [address] [address] [address] Spencer Braun VIT D RANGES SEE BELOW Normal [facility] Comment on above: Result Comment: <20 ng/mL Vit D deficient 20 - <30 ng/mL Vit D insufficient 30 - 100 ng/mL Vit D sufficient >100 ng/mL Potential Toxicity Performed By: #### V ITAD #### [facility] [address] [address] [address] Spencer Braun MG MAMM SCREEN 3D AWAIS CADon 02-16-2022 MG MAMM SCREEN 3D AWAIS CAD Patient: BETH STARKEY Exam Date: 02/16/2022 : 1940 Gender:F Ordering : DR MARCK TATE . Admission #: [id number] Family : Order #: [id number] CLICK HERE TO VIEW EXAM RADIOLOGY REPORT [...] at age 71. LOCATION: [facility] BREAST COMPOSITION: Heterogeneously dense,which may [...] 02/17/2022 at 07:39 Normal [facility] Vital Signs Date Time Vital Sign Value Performing Clinician Faci lity 08-15-2024 14:13-0400 Body mass index (BMI) [Ratio] 29.63 kg/m2 Forrest Ihsan DO Work Phone: [facility] 08-15-2024 14:13-0400 Body weight 71.12 kg Forrest Ihsan DO Work Phone: [facility] 08-15-2024 14:13-0400 Diastolic blood pressure 80 mm[Hg] Forrest Ihsan DO Work Phone: [facility] 08-15-2024 14:13-0400 Systolic blood pressure 114 mm[Hg] Forrest Ihsan DO Work Phone: [facility] 07-17-2024 15:08-0500 Body mass index (BMI) [Ratio] 29.44 kg/m2 Forrest Ihsan DO Work Phone: [facility] 07-17-2024 15:08-0500 Body weight 70.67 kg Forrest Ihsan DO Work Phone: [facility] 07-17-2024 15:08-0500 Diastolic blood pressure 70 mm[Hg] Forrest Ihsan DO Work Phone: [facility] 07-17-2024 15:08-0500 Systolic blood pressure 120 mm[Hg] Forrest Ihsan DO Work Phone: [facility] 12-16-2023 15:18-0400 Diastolic blood pressure 68 mm[Hg] Tam Kirnus [facility] 12-16-2023 15:18-0400 Systolic blood pressure 118 mm[Hg] Tam Kirnus [facility] 05-12-2023 10:13-0500 Diastolic blood pressure 72 mm[Hg] Sha Vallejo [facility] 05-12-2023 10:13-0500 Heart rate 94 /min Sha Vallejo [facility] 05-12-2023 10:13-0500 SaO2% (BldA) [Mass fraction] 90 % Sha Genevieve [facility] 05-12-2023 10:13-0500 Systolic blood pressure 130 mm[Hg] Sha Genevieve [facility] 05-03-2023 12:24-0500 Diastolic blood pressure 59 mm[Hg] Jena Hicks MD Work Phone: [facility] 05-03-2023 12:24-0500 Heart rate 86 /min Jena Hicks MD Work Phone: [facility] 05-03-2023 12:24-0500 Systolic blood pressure 103 mm[Hg] Jena Hicks MD Work Phone: [facility] 05-03-2023 12:14-0500 Body height 152.4 cm Jena Hicks MD Work Phone: [facility] 05-03-2023 12:14-0500 Body temperature 98.29 [degF] Jena Hicks MD Work Phone: [facility] 05-03-2023 12:14-0500 Body weight 65.82 kg Jena Hicks MD Work Phone: [facility] 05-03-2023 12:14-0500 Respiratory rate 16 /min Jena Hicks MD Work Phone: [facility] 05-03-2023 12:14-0500 SaO2% (BldA) [Mass fraction] 93 % Jena Hicks MD Work Phone: [facility] 09-06-2022 09:39-0400 Blood Pressure Location Dayron Jorgensne [facility] 09-06-2022 09:39-0400 Diastolic blood pressure 81 mm[Hg] Dayron Jorgensen [facility] 09-06-2022 09:39-0400 Heart rate 103 /min Dayron Jorgensen [facility] 09-06-2022 09:39-0400 SaO2% (BldA) [Mass fraction] 90 % Dayron Jorgensen [facility] 09-06-2022 09:39-0400 Systolic blood pressure 126 mm[Hg] Dayron Jorgensen [facility] Encounters Encounter Date Encounter Type Care Provider Facility Start: 08-15-2024 End: 08-15-2024 Bamboo flowsheet Forrest Ihsan DO Work Phone: [facility] Start: 08-15-2024 End: 08-15-2024 Bamboo flowsheet Forrest Ihsan DO Work Phone: [facility] Start: 08-15-2024 End: 08-15-2024 Office outpatient visit 15 minutes Forrest Ihsan DO Work Phone: [facility] Comment on above: Encounter to discuss test results; Cyst of left ovary Start: 08-15-2024 End: 08-15-2024 ambulatory FORREST IHSAN Not Available Start: 08-07-2024 End: 08-07-2024 ambulatory FORREST IHSAN Not Available Start: 07-20-2024 End: 07-20-2024 ambulatory Tam Vallejo Facility:[facility] Start: 07-17-2024 End: 07-17-2024 Office outpatient visit 15 minutes Forrest Ihsan DO Work Phone: [facility] Comment on above: Cyst of left ovary Start: 07-17-2024 End: 07-17-2024 ambulatory FORREST IHSAN Not Available Start: 07-17-2024 End: 07-17-2024 Bamboo flowsheet Forrest Ihsan DO Work Phone: [facility] Start: 07-17-2024 End: 07-17-2024 Bamboo flowsheet Forrest Ihsan DO Work Phone: [facility] Start: 06-18-2024 End: 07-06-2024 Patient encounter procedure Tam Vallejo [facility] Start: 01-20-2024 End: 01-20-2024 ambulatory [facility] Start: 01-09-2024 End: 01-10-2024 ambulatory 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); Bilateral carotid artery stenosis; Other disorders of arteries, arterioles and capillaries in diseases classified elsewhere (HCC) Start: 05-03-2023 End: 05-03-2023 ambulatory JENA HICKS Facility:[facility] Start: 05-03-2023 End: 05-03-2023 Office outpatient visit 25 minutes Jena Hicks MD Work Phone: [facility] Comment on above: 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) Start: 04-26-2023 Orders Only Jena Hicks MD Work Phone: [facility] Comment on above: Chest pain, unspecif ied type (Primary Dx) Start: 04-25-2023 Telephone encounter No 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 Comment on above: Appointment Start: 04-22-2023 Telephone encounter No One (Historic al) Referring Physician Comment on above: External Referrals/r esources Start: 03-23-2023 End: 03-23-2023 Patient encounter procedure Sha Vallejo [facility] Start: 01-20-2023 End: 01-20-2023 Patient encounter procedure Sha Vallejo [facility] Start: 09-24-2022 End: 09-24-2022 Patient encounter procedure Dayron Jorgensen [facility] Start: 09-06-2022 End: 09-06-2022 Patient encounter procedure Dayron Jorgensen [facility] Start: 08-02-2022 End: 08-03-[address] MARCK TATE . Facility: Start: 07-28-2022 End: 07-28-[address] MARCK TATE . Facility:[facility] Start: 07-14-2022 End: 07-15-[address] MARCK TATE . Facility: Start: 04-30-2022 End: 05-01-[address] MARCK TATE . Facility: Start: 02-16-2022 End: 02-17-[address] MARCK TATE . Facility: Start: 06-17-2017 End: 06-18-2017 Ambulatory DEFAULT PHYSICIAN Facility:[facility] Plan of Treatment Date Care Activity Detail Author Start: 07-04-2029 Urine microalbumin profile DTaP,Tdap,Td Vaccine (2 - Td or Tdap) [facility] Start: 08-15-2024 End: 08-15-2024 Patient encounter procedure 08/15/2024 1:50 PM EDT Office Visit [facility] [address] [facility] [address] [id number] Forrest Champagne, [address] [place] [address] Arrived [facility] Comment on above: Arrived Start: 08-07-2024 End: 08-07-2024 Professional / ancillary services management 08/07/2024 2:30 PM EDT Ancillary Procedure [facility] [address] [place] [id number] [facility] Start: 07-17-2024 End: 07-17-2024 Patient encounter procedure 07/17/2024 2:40 PM EST Office Visit [facility] [address] [place] [address] Forrest Champagne, DO [address] [place] [address] Arrived [facility] Comment on above: Arrived Start: 07-17-2024 End: 07-17-2025 US Pelvis US Pelvis w/ TV Imaging Routine Cyst of left ovary Expected: 07/17/2024, Expires: 07/17/2025 [facility] Work Phone: Comment on above: Expected: 07/17/2024 , Expires: 07/17/2025 Start: 01-22-2024 Influenza vaccination Influenza Vacc ine (#1) [facility] Start: 01-21-2023 Influenza vaccination Influenza Vacc ine (#1) [facility] Start: 05-23-2022 Advance Directive Discussion Advance Directive Discussion [facility] Start: 05-23-2022 Depression Assessment Depression Ass essment [facility] Start: 03-23-2018 Pneumococcal Vaccine : 65+ Years (2 of 2 - PPSV23 or PCV20) Pneumococcal Vaccine: 65+ Years (2 of 2 - PPSV23 or PCV20) [facility] Start: 05-18-2017 Pneumococcal Vaccine : 65+ (2 - PPSV23 or PCV20) Pneumococcal Vaccine: 65+ (2 - PPSV23 or PCV20) [facility] Start: 2006 Bone Density Screening Bone Density Screening [facility] Start: 2006 Pneumococcal Vaccine : 65+ (1 - PCV) Pneumococcal Vaccine: 65+ (1 - PCV) [facility] Start: 2006 Screening for osteoporosis Bone Density Screening [facility] Start: 2001 RSV Vaccine (1 - 1-d ose 60+ series) RSV Vaccine (1 - 1-dose 60+ series) [facility] Start: 1991 Shingrix Vaccine (1 of 2) Shingrix Vaccine (1 of 2) [facility] Start: 1986 Diabetes Screening Diabetes Screenin g [facility] Start: 1940 Covid-19 Vaccine (#1) Covid-19 Vacci ne (#1) [facility] End: 05-25-2024 Ct angio abd&plvis cntrst mtrl w/wo cntrst img CTA ABD/PEL WO/W IVCON Radiology Routine Chest pain, unspecified type 1 Occurrences starting 04/26/2023 until 05/25/2024 [facility] Work Phone: Comment on above: 1 Occurrences starti ng 04/26/2023 until 05/25/2024 End: 06-02-2024 Ct angio abd&plvis cntrst mtrl w/wo cntrst img CTA ABD/PEL WO/W IVCON Radiology Routine 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 Occurrences starting 05/04/2023 until 06/02/2024 [facility] Work Phone: Comment on above: 1 Occurrences starti ng 05/04/2023 until 06/02/2024 End: 05-25-2024 Ct angiography chest w/contrast/noncontrast CTA CHEST (NONGATED) WO/W IVCON Radiology Routine Chest pain, unspecified type 1 Occurrences starting 04/26/2023 until 05/25/2024 [facility] Work Phone: Comment on above: 1 Occurrences starti ng 04/26/2023 until 05/25/2024 End: 06-02-2024 Ct angiography chest w/contrast/noncontrast CTA CHEST (NONGATED) WO/W IVCON Radiology Routine 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 Occurrences starting 05/04/2023 until 06/02/2024 [facility] Work Phone: Comment on above: 1 Occurrences starti ng 05/04/2023 until 06/02/2024 End: 05-04-2024 PVR ANK/HILL/TOE [facility] PVR ANK/HILL/TOE [facility] Vascular Lab Routine 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) Other disorders of arteries, arterioles and capillaries in diseases classified elsewhere (HCC) 1 Occurrences starting 05/04/2023 until 05/04/2024 [facility] Work Phone: Comment on above: 1 Occurrences starti ng 05/04/2023 until 05/04/2024 End: 05-04-2024 US CAROTID ARTERIES A[facility] LAB US CAROTID ARTERIES [facility] Vascular Lab Routine Bilateral carotid artery stenosis 1 Occurrences starting 05/04/2023 until 05/04/2024 [facility] Work Phone: Comment on above: 1 Occurrences starti ng 05/04/2023 until 05/04/2024 [facility] Immunizations Immunization Date Immunization Notes Care Provider Fa sabrina 04-26-2023 influenza virus vacc ine, unspecified formulation Forrest Champagne DO Work Phone: [facility] Healthcare Payers Date Payer Category Payer [employer] ( and others) [id number] 2006 Medicare [id number] 1998 ([place]) [id number] 1959 [employer] ( and others) [id number] 1959 Medicare [id number] 1940 Unknown [id number]. 2.593 1940 Unknown [id number] [id number]. 2.593 1940 Unknown [id number] [id number]. 2.593 1940 Unknown [id number] [id number]. 2.593 1940 Unknown [id number] [id number]. 2.593 1940 Unknown [id number] [id number]. 2.727 1940 Unknown [id number] [id number]. 2.727 1940 Unknown [id number] [id number]. 2.1259 1940 Unknown [id number] [id number]. 2.1259 1940 Unknown [id number] [id number]. 2.1259 1940 Unknown [id number]. 2.1259 Unknown Social History Date Type Detail Facility Start: 09-06-2022 End: 12-16-2023 Tobacco smoking status Heavy tobacco smoker (finding) [facility] Start: 05-03-2023 Sex Assigned At Female F [facility] Tobacco smoking stat RUSTIS Tobacco smoking consumption unknown [facility] Start: 1940 Sex Assigned At Not on file [facility] Start: 05-23-1956 Tobacco smoking stat RUSTIS Smokes tobacco daily [facility] Start: 05-23-1956 History of tobacco use Cigarette Smo ker [facility] Start: 05-03-2023 Cigarettes smoked current (pack per day) - Reported 1.5 [facility] Start: 05-03-2023 Tobacco use and exposure Smokeless tobacco non-user [facility] Start: 05-03-2023 Alcohol intake Current drinke r of alcohol (finding) [facility] National Score (1-10 0), lower number is lower risk 87 [facility] Start: 05-03-2023 Alcohol Comment football [facility] Functional Status Date Assessment Result Facility 12-16-2023 Functional Status N/A [facility] 05-12-2023 Functional Status N/A [facility] 09-06-2022 Functional Status No [facility] Clinical Notes 03-22-2023 to 08-15-2024 Patrizia Wells LPN - 08/15/2024 1:50 PM Christina Wells LPN - 07/17/2024 2:40 PM Jena Miller MD - 05/03/2023 12:42 PM ESTTelephone Encounter - Alondra Quiros - 04/25/2023 4:18 PM EST Note Date & Type Note Facility 08-15-2024 History of Present illness Narrative Reason for Appointment: Patient ID: Beth Starkey is a 84 y.o. female who presents for Results Patient presents today for Follow up appointment to discuss results. MEDICATIONS Current Outpatient Medications Medication Instructions ascorbic acid (VITAMIN C) 500 mg, Daily RT aspirin 81 mg, Daily RT atorvastatin (LIPITOR) 40 mg, Oral, Daily RT calcium carbonate (TUMS) 500 mg, Daily RT cetirizine (ZYRTEC) 10 mg, Daily cholecalciferol (VITAMIN D-3) 1,000 Units, Daily RT glimepiride (Amaryl) 2 MG tablet lisinopril 40 mg, Daily melatonin 10 mg, Nightly metFORMIN (GLUCOPHAGE) 500 mg, 2 times daily metoprolol succinate XL (TOPROL-XL) 25 mg, Oral, Daily Multiple Vitamin (Multi-Vitamin) tablet 1 tablet, Daily RT omeprazole (PriLOSEC) [address] capsule TAKE 1 CAPSULE BY MOUTH EVERY DAY 30 MINUTES BEFORE BREAKFAST pramipexole (MIRAPEX) 1 mg, Daily ALLERGIES No Known Allergies PROBLEMS Active Ambulatory Problems Diagnosis Date Noted No Active Ambulatory Problems Resolved Ambulatory Problems Diagnosis Date Noted No Resolved Ambulatory Problems Past Medical History: Diagnosis Date Aortic aneurysm (CMS/HCC) Breast cancer screening by mammogram 2022 Lung nodule Pap smear for cervical cancer screening HISTORY PAST MEDICAL HISTORY SOCIAL HISTORY Past Medical History: Diagnosis Date Aortic aneurysm (CMS/HCC) 2 1/2 cm Breast cancer screening by mammogram 2022 Lung nodule Pap smear for cervical cancer screening over 10 years ago or more/ neg Social History Tobacco Use Smoking status: Not on file Smokeless tobacco: Not on file Substance Use Topics Alcohol use: Not on file Drug use: Not on file FAMILY HISTORY No family history on file. SURGICAL HISTORY Past Surgical History: Procedure Laterality Date CHOLECYSTECTOMY REVIEW OF SYSTEMS Review of Systems: Review of Systems Constitutional: Negative. HENT: Negative. Eyes: Negative. Respiratory: Negative. Cardiovascular: Negative. Gastrointestinal: Negative. Genitourinary: Negative. Musculoskeletal: Negative. Skin: Negative. Neurological: Negative. All other systems reviewed and are negative. Hematological: Negative. Endocrine: Negative. Allergic/Immunologic: Negative. OBJECTIVE Objective: Physical Exam Constitutional: Appearance: Normal appearance. She is well-developed. Cardiovascular: Rate and Rhythm: Normal rate and regular rhythm. Pulmonary: Effort: Pulmonary effort is normal. Breath sounds: Normal breath sounds. Abdominal: General: Bowel sounds are normal. There is no distension. Palpations: Abdomen is soft. Tenderness: There is no abdominal tenderness. There is no guarding or rebound. Musculoskeletal: General: No swelling. Normal range of motion. Right lower leg: No edema. Left lower leg: No edema. Neurological: Mental Status: She is alert and oriented to person, place, and time. Skin: General: Skin is warm and dry. Psychiatric: Mood and Affect: Mood normal. Behavior: Behavior normal. Vitals and nursing note reviewed. Exam conducted with a retail management trainee present. Vitals: Estimated body mass index is 29.63 kg/m as calculated from the following: Height as of 11/09/23: 5' 1 . Weight as of this encounter: 156 lb 12.8 oz. BP: 114/80 No LMP recorded. Patient is postmenopausal. ASSESSMENT & PLAN ICD-10-CM 1. Encounter to discuss test results Z71.2 2. Cyst of left ovary N83.202 Pt presents to discuss ultrasound results. Pt has left ovarian cyst. Pt to continue to watch. Documented by Patrizia Wells LPN on behalf of: Forrest Champagne DO documented in this encounter [facility] 07-17-2024 History of Present illness Narrative Reason for Appointment: Patient ID: Beth Starkey is a 84 y.o. female who presents for Ovarian Cyst Patient presents today for Acute Visit. MEDICATIONS Current Outpatient Medications Medication Instructions ascorbic acid (VITAMIN C) 500 mg, Daily RT aspirin 81 mg, Daily RT atorvastatin (LIPITOR) 40 mg, Oral, Daily RT calcium carbonate (TUMS) 500 mg, Daily RT cetirizine (ZYRTEC) 10 mg, Daily cholecalciferol (VITAMIN D-3) 1,000 Units, Daily RT glimepiride (Amaryl) 2 MG tablet lisinopril 40 mg, Daily melatonin 10 mg, Nightly metFORMIN (GLUCOPHAGE) 500 mg, 2 times daily metoprolol succinate XL (TOPROL-XL) 25 mg, Oral, Daily Multiple Vitamin (Multi-Vitamin) tablet 1 tablet, Daily RT omeprazole (PriLOSEC) [address] capsule TAKE 1 CAPSULE BY MOUTH EVERY DAY 30 MINUTES BEFORE BREAKFAST pramipexole (MIRAPEX) 1 mg, Daily ALLERGIES No Known Allergies PROBLEMS Active Ambulatory Problems Diagnosis Date Noted No Active Ambulatory Problems Resolved Ambulatory Problems Diagnosis Date Noted No Resolved Ambulatory Problems Past Medical History: Diagnosis Date Aortic aneurysm (CMS/HCC) Breast cancer screening by mammogram 2022 Lung nodule Pap smear for cervical cancer screening HISTORY PAST MEDICAL HISTORY SOCIAL HISTORY Past Medical History: Diagnosis Date Aortic aneurysm (CMS/HCC) 2 1/2 cm Breast cancer screening by mammogram 2022 Lung nodule Pap smear for cervical cancer screening over 10 years ago or more/ neg Social History Tobacco Use Smoking status: Not on file Smokeless tobacco: Not on file Substance Use Topics Alcohol use: Not on file Drug use: Not on file FAMILY HISTORY No family history on file. SURGICAL HISTORY Past Surgical History: Procedure Laterality Date CHOLECYSTECTOMY REVIEW OF SYSTEMS Review of Systems: Review of Systems Constitutional: Negative. HENT: Negative. Eyes: Negative. Respiratory: Negative. Cardiovascular: Negative. Gastrointestinal: Negative. Genitourinary: Negative. Musculoskeletal: Negative. Skin: Negative. Neurological: Negative. All other systems reviewed and are negative. Hematological: Negative. Endocrine: Negative. Allergic/Immunologic: Negative. OBJECTIVE Objective: Physical Exam Constitutional: Appearance: Normal appearance. She is well-developed. Cardiovascular: Rate and Rhythm: Normal rate and regular rhythm. Pulmonary: Effort: Pulmonary effort is normal. Breath sounds: Normal breath sounds. Abdominal: General: Bowel sounds are normal. There is no distension. Palpations: Abdomen is soft. Tenderness: There is no abdominal tenderness. There is no guarding or rebound. Musculoskeletal: General: No swelling. Normal range of motion. Right lower leg: No edema. Left lower leg: No edema. Neurological: Mental Status: She is alert and oriented to person, place, and time. Skin: General: Skin is warm and dry. Psychiatric: Mood and Affect: Mood normal. Behavior: Behavior normal. Vitals and nursing note reviewed. Exam conducted with a retail management trainee present. Vitals: Estimated body mass index is 29.44 kg/m as calculated from the following: Height as of 24: 5' 1 . Weight as of this encounter: 155 lb 12.8 oz. BP: 120/70 No LMP recorded. Patient is postmenopausal. ASSESSMENT & PLAN ICD-10-CM 1. Cyst of left ovary N83.202 US Pelvis w/ TV Pt presents to discuss ovarian cyst- has ultrasound order to have obtained. Documented by Patrizia Wells LPN on behalf of: Forrest Champagne DO documented in this encounter [facility] 01-20-2024 Note [place] [facility] Note Reason for cardiology visit: Dyspnea on exertion, prior history of CAD Chief Complaint: Dyspnea on exertion HPI: 01/20/2024 Patient is here today for follow-up visit after she underwent stress test which came back abnormal showing evidence of inferior ischemia. She continues to deny any chest pain at rest or with exertion. She admits significant exertional dyspnea, she continues to smoke however she continues to cut down. She denies orthopnea or paroxysmal nocturnal dyspnea or dizziness or palpitations. She admits edema in the feet towards the end of the day 01/09/2024 Beth Starkey is a 83 y.o. 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 She reports current alcohol use. She reports that she does not use drugs. Family History Family History Problem Relation Name [...] not crush or chew., Disp: , Rfl: nitroglycerin (Nitrostat) 0.4 mg SL tablet, Place 0.4 mg under the tongue every 5 (five) minutes if needed., Disp: , Rfl: omeprazole (PriLOSEC) [address] capsule, Take 20 mg by mouth in the morning., Disp: , Rfl: pramipexole (Mirapex) 1 mg tablet, Take 1 mg by mouth., Disp: , Rfl: Last Recorded Vitals Visit Vitals BP 108/68 (BP Location: Left arm, Patient Position: Sitting) Pulse 98 Ht 1.524 m (5') Wt 69.9 kg (154 lb) SpO2 93% BMI 30.08 kg/m??? Smoking Status Every Day BSA 1.72 m??? Physical Examination: GENERAL: alert and oriented [...] NEURO: strength/sensation equal and symmetric in bilateral upper and lower extremities. PSYCH: appropriate mood, aff (more content not included)... [facility] 01-09-2024 Note [place] [facility] Note Reason for cardiology consult: Dyspnea on exertion, prior history of CAD Chief Complaint: Dyspnea on exertion HPI: Beth Starkey is a 83 y.o. 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 [facility] 05-26-2023 Note Patient Outreach ( [facility]) BETH STARKEY ([id number]) 1940 F Date Time Provider Department 05/26/23 [...] and brochure sent Lung Nodule Program Location: [place] Allergies As of Date: 05/26/2023 (No Known [...] Encounter Status:Closed by EVANGELINA BURNETT on 05/26/23 [facility] 05-26-2023 Note HNO ID: [id number] Author: ?, ?, ? Service: ? Author [...] and brochure sent Lung Nodule Program Location: [facility] 05-18-2023 Note Patient Outreach ([facility]) BETH STARKEY ([id number]) 1940 F Date Time Provider Department 05/18/23 CROW BELLOSteven During your visit today, we recorded the following information about you: Crow Bello, MARKETING FINANCE MANAGER.[facility] 05/18/2023 11:12 AM Signed Incidental Lung Nodule Enrollment Outreach attempt: 1st Attempt Outreach status: Complete Enrolled in Lung Nodule program: Referred Lung Nodule outreach: No outreach - Very small nodule, letter and brochure sent Lung Nodule Program Location: [place] Allergies As of Date: 05/18/2023 (No Known [...] Encounter Status:Closed by CROW BELLO on 05/18/23 [facility] 05-18-2023 Note HNO ID: [id number] Author: Crow Bello, MARKETING FINANCE MANAGER.HIGHWAY MAINTAINER Service: ? Author Type: Nurse Practitioner Type: Progress Notes Filed: 05/18/2023 11:12 AM Note Text: Incidental Lung Nodule Enrollment Outreach attempt: 1st Attempt Outreach status: Complete Enrolled in Lung Nodule program: Referred Lung Nodule outreach: No outreach - Very small nodule, letter and brochure sent Lung Nodule Program Location: [facility] 05-03-2023 Note HNO ID: [id number] Author: Nadine Cummins RN Service: Radiology Author [...] DATE: May 03, 2023 TIME: 1:00 PM [facility] 05-03-2023 Note HNO ID: [id number] Author: Kandy Aragon RT(R) Service: Radiology Author [...] RT Tess(R) May 03, 2023 1:19 PM [facility] 05-03-2023 History and physical note [facility] [place] DEPARTMENT OF VASCULAR SURGERY OUTPATIENT VISIT DATE [...] 4 - Moderate documented in this encounter [facility] 04-25-2023 Miscellaneous Notes Reason for call: Ms Starkey called,and she would like to schedule an appointment with vascular surgery Referred by Dr Judit [facility] and cell number: [phone] Diagnosis: AAA Kind Regards Alondra documented in this encounter [facility] 04-22-2023 Miscellaneous Notes Patient: Beth Starkey Date of : 1940 Patient phone number: [phone] Referring Provider for the encounter: Marck Tate MD Requesting Provider: N/A Reason for requesting visit (RFV/signs and symptoms/diagnosis): Sent Telephone Encounter - updated tracking. Person calling: caregiver: Patrizia Return call to: self Medical Records/Insurance Card scanned into Epic: Yes Comments: N/A documented in this encounter [facility] 03-23-2023 Evaluation + Plan note Diagnostic Tests PendingCreatinine 03/23/23 Future Scheduled TestsCTA Abd Aorto-bilat/ iliofemoral runoff 03/22/23 [facility] 03-22-2023 Evaluation + Plan note Future Scheduled TestsCTA Abd Aorto-bilat/ iliofemoral runoff 03/22/23 [facility] Evaluation + Plan note Future Appointments Appointment Date:10/11/2022 10:00:00 AM Scheduled Provider:[facility]orgensen [facility]:V[facility] Follow Up (FT) Future Scheduled TestsCTA Abdomen and Pelvis 09/06/22CTA Chest 09/06/22 [facility] Evaluation + Plan note Future Appointments Appointment Date:10/11/2022 10:00:00 AM Scheduled Provider:Dayron Jorgensen [facility] Type:Vascular Follow Up (FT) [facility] Evaluation + Plan note Future Scheduled TestsCTA Abd Aorto-bilat/ iliofemoral runoff 03/22/23 [facility] Evaluation + Plan note Future Appointments Appointment Date:06/18/2024 09:45:00 AM Scheduled Provider:aTm Vallejo MD [facility] Type:Cardiology Follow Up (FT) Future Scheduled TestsCTA Abd Aorto-bilat/ iliofemoral runoff 03/22/23 [facility] Evaluation + Plan note Future Appointments Appointment Date:07/20/2024 10:00:00 AM Scheduled Provider:Tam Vallejo MD [facility] [place] [facility] Type:Cardiology Follow Up (FT) Future Scheduled TestsLipid Panel 12/19/23NM Myocardial Spect Rest/Stress 1 Day 12/21/23Echo Transthoracic Complete 12/21/23CTA Abd Aorto-bilat/ iliofemoral runoff 03/22/23 [facility] Evaluation note Diagnosis Chest pain, unspecified type- Primary [facility] Diagnosis 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 [facility] Diagnosis 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 Bilateral carotid artery stenosis Occlusion and stenosis of carotid artery without mention of cerebral infarction Other disorders of arteries, arterioles and capillaries in diseases classified elsewhere (HCC) [facility] Diagnosis Cyst of left ovary Other and unspecified ovarian cyst documented in this encounter [facility] HealthcareEvaluation note* Diagnosis Encounter to discuss test results Other specified counseling Cyst of left ovary Other and unspecified ovarian cyst documented in this encounter [facility] HealthcareHospital course Narrative No data available for this section [facility] No data available for this section [facility] No data available for this section [facility] (narrative)* Outpatient Procedure (Routine) - Authorized Specialty Diagnoses / Procedures Referred By Manjula jovel Referred To Contact [facility] [place] Diagnoses 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) Other disorders of arteries, arterioles and capillaries in diseases classified elsewhere ([facility]) Procedures PVR ANK/HILL/TOE AWAIS VAS LAB NON-INVAS PHYSIOLOGIC STD EXTREMITY ART 2 LEVEL Jena Hicks MD [address] [place] [address] [facility] [place] [address] Referral ID Status Reason Start Date Expiration Date Visits Requested Visits Authorized [id number] Authorized Auto-Generat ed Referral 3 05/03/2024 1 1 * MRI/CT (Routine) - Authorized Specialty Diagnoses / Procedures Referred By Manjula jovel Referred To Contact CT IMAGING Diagnoses 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) Procedures CTA ABD/PEL WO/W IVCON CT ANGIO ABD&PLVIS CNTRST MTRL W/WO CNTRST Jena Todd MD [address] [place] [id number] [place] [address] Referral ID Status Reason Start Date Expiration Date Visits Requested Visits Authorized [id number] Authorized Auto-Generat ed Referral 3 06/02/2024 1 1 * MRI/CT (Routine) - Authorized Specialty Diagnoses / Procedures Referred By Contac t Referred To Contact CT IMAGING Diagnoses 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) Procedures CTA CHEST (NONGATED) WO/W IVCON CT ANGIOGRAPHY CHEST W/CONTRAST/NONCONTRAST Jena Hicks MD [address] [place] [address] Ct Imaging [facility] Referral ID Status Reason Start Date Expiration Date Visits Requested Visits Authorized [id number] Authorized Auto-Generat ed Referral 3 06/02/2024 1 1 * Outpatient Procedure (Routine) - Authorized Specialty Diagnoses / Procedures Referred By Contac t Referred [facility] Diagnoses Bilateral carotid artery stenosis Procedures US CAROTID ARTERIES AWAIS VAS LAB DUPLEX SCAN EXTRACRANIAL ART COMPL BI STUDY Jena Hicks MD [address] [place] [address] [facility] [address] [place] [address] Referral ID Status Reason Start Date Expiration Date Visits Requested Visits Authorized [id number] Authorized Auto-Generat ed Referral 3 05/03/2024 1 1 [facility] Summary Purpose Family History No Family History Records FoundNo Family History Records Found No data available for this section No data available for this section No Family History Records Found No data available for this section No Family History Records Found No data available [...] CNTRST MTRL W/WO CNTRST Jena Todd MD [address] [place] [address] Ct Imaging [place] [address] Referral ID Status Reason Start Date Expiration Date Visits Requested Visits Authorized [id number] Authorized Auto-Generat ed Referral 04/26/2023 05/25/2024 1 1 Specialty Diagnoses / Procedures Referred By Contac t Referred To Contact CT IMAGING Diagnoses Chest pain, unspecified type Procedures CTA CHEST (NONGATED) WO/W IVCON CT ANGIOGRAPHY CHEST W/CONTRAST/NONCONTRAST Jena Hicsk MD [address] [place] [address] Ct Imaging [place] [address] Referral ID Status Reason Start Date Expiration Date Visits Requested Visits Authorized [id number] Authorized Auto-Generat ed Referral 04/26/2023 05/25/2024 1 1 Additional Source Comments INFORMATION SOURCE (unrecogn ized section and content) DATE CREATED AUTHOR 11/14/2017 [facility] DATE CREATED AUTHOR AUTHOR'S ORGANIZ ATION 08/09/2022 [facility] DATE CREATED AUTHOR AUTHOR'S ORGANIZ ATION 05/27/2023 [facility] DATE CREATED AUTHOR AUTHOR'S ORGANIZ ATION 01/22/2024 [facility] DATE CREATED AUTHOR AUTHOR'S ORGANIZ ATION 07/26/2024 [facility] DATE CREATED AUTHOR AUTHOR'S ORGANIZ ATION 08/16/2024 [facility] EPIC Patient Care team informatio n (unrecognized section and content) Editorial Director Relationship Specialty Start Date End Date Marck Tate MD [address] [place] [id number] Family Medicine 04/22/23 Editorial Director Relationship Specialty Start Date End Date Marck Tate MD [address] [place] [address] Family Medicine 04/22/23 Editorial Director Relationship Specialty Start Date End Date Marck Tate MD [address] [place] [address] Family Medicine 04/22/23 Editorial Director Relationship Specialty Start Date End Date Marck Tate MD [address] [place] [address] Family Medicine 04/22/23 Editorial Director Relationship Specialty Start Date End Date Marck Tate MD [address] [place] [facility] [place] [address] PCP - General Family Medicine 05/30/23 Editorial Director Relationship Specialty Start Date End Date Marck Tate MD [address] [place] [facility] [place] [address] PCP - General Family Medicine 05/30/23 Editorial Director Relationship Specialty Start Date End Date Marck Tate MD [address] [facility] [place] [address] PCP - General Family Medicine 05/30/23 Editorial Director Relationship Specialty Start Date End Date Marck Tate MD [address] [place] [facility] [place] [address] PCP - General Family Medicine 05/30/23 Source Comments (unrecognize d section and content) In the event this informatio n is protected by the [facility] Confidentiality of Alcohol and Drug Abuse Patient Records regulations: The Federal rules restrict any use of the information to criminally investigate or prosecute any alcohol or drug abuse patient.[facility] the event this information is protected by the Federal Confidentiality of Alcohol and Drug Abuse Patient Records regulations: The Federal rules restrict any use of the information to criminally investigate or prosecute any alcohol or drug abuse patient.[facility] Center[facility] the event this information is protected by the Federal Confidentiality of Alcohol and Drug Abuse Patient Records regulations: The Federal rules restrict any use of the information to criminally investigate or prosecute any alcohol or drug abuse patient.[facility] Center[facility] the event this information is protected by the Federal Confidentiality of Alcohol and Drug Abuse Patient Records regulations: The Federal rules restrict any use of the information to criminally investigate or prosecute any alcohol or drug abuse patient.[facility] CenterIn the event this information is protected by the Federal Confidentiality of Alcohol and Drug Abuse Patient Records regulations: The Federal rules restrict any use of the information to criminally investigate or prosecute any alcohol or drug abuse patient.[facility] Reason for Visit (unrecogniz ed section and content) Reason Comments External Referrals/resources Reason Comments Appointment Reason Comments Consult Reason Comments Ovarian Cyst Reason Comments Results FOR RECORDS PERTAINING TO PATIENTS WHO ARE [...] BE BASED ON THE PRIMARY CLINICAL RECORDS. [facility]. provides no warranty or guarantee of the accuracy or completeness of information in this document.
[2024-09-03 11:18] LABS: Basophils Percent Auto 0.7 % (0.2-2.0); Eosinophils Absolute Auto 0.2 10^3/uL (0.0-0.7); Eosinophils Percent Auto 3.8 % (0.9-7.0); Hematocrit 41.4 % (36.0-48.0); Hemoglobin 13.2 g/dL (12.0-16.0); Immature Granulocytes Abs Auto 0.02 10^3/uL (0.00-0.03); Immature Granulocytes Pct Auto 0.3 % (0.0-0.5); Lymphocytes Absolute Auto 1.4 10^3/uL (1.2-3.8); Lymphocytes Percent Auto 23.5 % (20.5-60.0); Mean Corpuscular HGB Conc 31.9 g/dL (29.9-35.2); Mean Corpuscular Hemoglobin 28.9 pg (26.7-34.0); Mean Corpuscular Volume 90.6 fL (81.0-99.0); Mean Platelet Volume 9.4 fL (9.5-13.5); Monocytes Absolute Auto 0.3 10^3/uL (0.3-0.8); Monocytes Percent Auto 5.4 % (1.7-12.0); Neutrophils Absolute Auto 3.8 10^3/uL (1.4-6.5); Neutrophils Percent Auto 66.3 % (43.0-75.0); Platelet Count 161 10^3/uL (150-450); Red Blood Count 4.57 10^6/uL (4.20-5.40); Red Cell Distribution Width 14.6 % (11.0-15.0); White Blood Count 5.8 10^3/uL (4.0-11.0)
[2024-09-03 11:36] LABS: Estimated Average Glucose 148 mg/dL; Glycohemoglobin A1C 6.8 % (4.5-6.2)
[2024-09-03 12:16] LABS: Alanine Aminotransferase 19 U/L (14-59); Albumin Level 3.6 g/dL (3.4-5.0); Alkaline Phosphatase 127 U/L (46-116); Aspartate Amino Transferase 14 U/L (15-37); Bilirubin Total 0.5 mg/dL (0.2-1.0); Calcium 9.2 mg/dL (8.5-10.1); Carbon Dioxide 29.6 mmol/L (21.0-32.0); Chloride 108 mmol/L (98-107); Chol HDL Ratio 3.1; Cholesterol 151 mg/dL (<=200); Estimated GFR (African America >60 (>=60 mL/min/1.73m^2); Estimated GFR (Non-African Ame 53 (>=60 mL/min/1.73m^2); Free T3 3.02 pg/mL (2.18-3.98); Globulin 3.6 g/dL; Glucose 82 mg/dL (74-106); HDL Cholesterol 49 mg/dL (40-60); Potassium 4.6 mmol/L (3.5-5.1); Sodium 145 mmol/L (136-145); Thyroid Stimulating Hormone 2.615 uIU/mL (0.358-3.740); Total Protein 7.2 g/dL (6.4-8.2); Triglycerides 153 mg/dL (<=150); VLDL CHOLESTEROL 30.6 mg/dL
[2024-09-04 04:08] LABS: CA 19-9 5 U/mL (0-35); CEA 3.1 ng/mL (0.0-4.7)
== END 2024-09-03 10:41 | disposition home or self-care (01) ==
LOC: LAB 10:47
PROVIDERS: PCP Family Medicine; Visit Provider Family Medicine
DX: R91.1 Solitary pulmonary nodule (principal); J44.9 Chronic obstructive pulmonary disease, unspecified; I10 Essential (primary) hypertension; I25.10 Atherosclerotic heart disease of native coronary artery without angina pectoris; E78.5 Hyperlipidemia, unspecified; R73.09 Other abnormal glucose; D64.9 Anemia, unspecified; E55.9 Vitamin D deficiency, unspecified
CPT/HCPCS: 36415; 80053; 80061; 82306; 82378; 83036; 83540; 84436; 84443; 84481; 85025; 86301

== ENCOUNTER 2024-09-04 14:18 | Outpatient (OUT) | payer MEDICARE, OTHER, SELFPAY ==
--- NOTE | 2024-09-04 14:23 | CT_ITS ---
The [address] [address] Patient Name: ADELA PARDO MRN: [id number] date: 1940 Sex: F Assigned Patient Location: CT Current Patient Location: LAB Accession/Order Number: [id number] Exam Date: 09/04/2024 15:55 Report Date: 09/04/2024 16:07 At the request of: LANA HERNANDEZ MD Procedure: CT angio abd aorta runoff CT of the abdomen with aorta runoff TECHNIQUE: Axial imaging with 2-D reconstruction.100 cc of Omnipaque 350. The CT exam was performed using one or more the following dose reduction techniques: Automated exposure control, adjustment of the MA and/or Kv according to patient size, or use of the iterative reconstruction technique. COMPARISON: 03/25/2023 History: Follow-up imaging for the distal thoracic and abdominal aortic aneurysm. LIMITATIONS: None LOWER THORAX mild atelectasis. LIVER: Unremarkable GALLBLADDER: No gallbladder abnormality identified. BILE DUCTS: No dilatation SPLEEN: Unremarkable PANCREAS: Unremarkable ADRENAL GLANDS: Unremarkable KIDNEYS:Unremarkable AORTA: Aneurysmal dilatation of the aorta with intramural hematoma. Descending aorta measures up to 5.2 cm. Proximal abdominal aorta measures up to 5.6 cm. The juxtarenal aorta measures up to 5.9 cm. Infrarenal abdominal aorta measures up to 5.4 cm. This extends to the aortic bifurcation. SMA patent. Celiac artery patent. Renal arteries patent. Inferior mesenteric artery patent. The renal arteries patent. Right common carotid artery patent. 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 No significant stenosis. Right internal iliac artery unremarkable. Common and deep femoral artery and the right unremarkable. 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 Reconstitution into the right popliteal artery. Atherosclerosis present. Right two-vessel runoff to the ankle into the anterior tibialis and peroneal arteries. Extensive atherosclerosis of the posterior tibialis on the right. No significant stenosis of the left common, external or internal iliac artery. Left common femoral and superficial and deep arteries and popliteal artery are patent. The left three-vessel runoff present. RETROPERITONEUM: No significant retroperitoneal abnormalities identified. MESENTERY:Unremarkable SMALL BOWEL: The small bowel loops are nondistended. APPENDIX: The appendix is normal. COLON: Unremarkable URINARY BLADDER: Urinary bladder is unremarkable. REPRODUCTIVE SYSTEM: Calcification within the uterus. Similar 4 cm left adnexal cyst. PNEUMOPERITONEUM: None PERITONEAL FLUID:None BONY STRUCTURES: Lumbar degenerative changes. Similar scoliosis. ABDOMINAL WALL: Unremarkable CT/CT angio abd aorta runoff IMPRESSION: Overall stable findings with similar descending and abdominal aortic aneurysm. 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 Similar right two-vessel runoff. Unremarkable left lower extremity arteries without significant stenosis. Similar large left ovarian cyst. No new findings. Impression dictated by: Tj Guallpa M.D.09/04/2024 4:07 PM Dictation Location: [place] [address] Electronically authenticated by: [id number] Y Date: 09/04/2024 16:07
--- OUTSIDE RECORDS SUMMARY | 2024-09-04 14:33 | XMS_ITS | CCD ---
Author Organization [facility] Team Providers Care Chief Fundraising Officer Name Role Phone PHYSICIAN, DEFAULT Unavailable Unavailable PHYSICIAN, DEFAULT Unavailable Unavailable MARCK TATE Unavailable Unavailable HOY ., DR ACHARYA Admitting Unavailable HOY ., DR ACHARYA Attending Unavailable HOY ., DR ACHARYA Primary Care Unavailable HOY ., DR ACHARYA Consulting Unavailable BLUNT, DR SANDOVAL Ferguson Consulting Unavailable HOY ., [...] Consulting Unavailable Marck Tate Primary Care Physician [phone] Marck Tate MD Unavailable JENA HICKS Referring Unavailable JENA HICKS Attending Unavailable CALE HOPE Attending Unavailable CALE HOPE Attending Unavailable Marck Tate MD Primary Care Provider [phone] Tam Vallejo Attending Unavailable NONE, XXXX Referring Unavailable Tam Vallejo Attending Unavailable NONE, XXXX Referring Unavailable IHSAN, FORREST Attending Unavailable IHSAN, FORREST Referring Unavailable IHSAN, FORREST Attending Unavailable IHSAN, FORREST Attending Unavailable Allergies Allergy Classification Reported Allergen(s) Allergy Type Date of Onset Reaction(s) Facility (1 source) No Known Medication Allergies; Translations: [No Known Medication Allergies] Propensity to adverse reactions (disorder) [facility] Repository Medications Current Medications Medication Drug [...] # 30 tab(s), Refills(s) 6, Pharmacy: [facility] #[id number], 152, cm, 12/16/23 15:27:00 EDT, Height/Length Dosing, 69.1, kg, 12/16/23 15:27:00 EDT, Weight Dosing Start Date: 12/19/23 Status: Ordered calcium carbonate (Tums) 250 mg (rampart 100 mg) chewable split tablet (6 sources) calcium carbonat e (Tums) 250 mg (rampart 100 mg) chewable split tablet Take 500 [...] Daily, # 30 tab(s), Refills(s) 6, Pharmacy: [facility] #[id number], 152, cm, 12/16/23 15:27:00 EDT, Height/Length Dosing, 69.1, kg, 12/16/23 15:27:00 EDT, Weight Dosing Start Date: 12/19/23 Status: Ordered Start: 12-16-2023 take 1 tablet by caty th once daily metoprolol succinate 25 mg ER Tab 25 mg = 1 tab(s), Oral, Daily, # 30 tab(s), Refills(s) 6, Pharmacy: [facility] #[id number], 152, cm, 12/16/23 15:27:00 EDT, Height/Length Dosing, [...] disease (4 sources) Atherosclerotic heart disease of [place] coronary artery without angina pectoris; Translations: [Coronary [...] II, MD, PHD at 09-Aug-2024 08:45:09 AM [facility] Normal Not Available Comment on above: Order Comment: US PE LVIS-TRANSVAG IF INDICATED No LMP recorded. Patient is postmenopausal. Heart and Vascular Office/Cl [facility] Noteon 07-20-2024 Heart and Vascular [...] as indicated. [1] Assessment/Plan 1. CAD in [place] artery (I25.10: Atherosclerotic heart disease of [place] coronary artery without angina pectoris) Exertional dyspnea [...] A PONCE (more content not included)... Normal [facility] Comment on above: Result Comment: Elec tronically Signed By: Genevieve CURRIE, Tam Spain\.br\Date and Time Signed: 07/20/24 10:27 EST Office Visiton 01-20-2024 Follow-up visit [id number] Beth Starkey 1940 F Date Provider Department Center 01/20/2024 CALE RAYMOND Family History Problem Relation Age of Onset Heart attack Father Diabetes Sister Coronary artery disease Brother Aneurysm Brother Diabetes Brother Family Status - Relation Status Age at Father Sister Brother Level of Service:15791 [place] OFFICE/OUTPATIENT ESTABLISHED MOD MDM 30 MIN Reason for Visit and Comments: Hyperlipidemia [182] Hypertension [156005] - Pt had a abnormal stress. Patient used the restroom in the ED right before apt and had a fall. She denies lightheadedness/dizz iness and syncope. She denies hiting her head. Shortness of Breath [043806] Normal [facility] Office Visiton 01-09-2024 Follow-up visit [id number] Beth Starkey 1940 F Date Provider Department Center 01/09/2024 CALE RAYMOND Family History Problem Relation Age of Onset Heart attack Father Diabetes Sister Coronary artery disease Brother Aneurysm Brother Diabetes Brother Family Status - Relation Status Age at Father Sister Brother Level of Service:06766 [place] OFFICE/OUTPATIENT NEW MODERATE MDM 45 MINUTES Reason for Visit and Comments: New Patient [632] - Pt complains of sob. Normal [facility] Heart and Vascular Office/Cl inic Noteon 12-16-2023 [...] aneurysm, without rupture, unspecified) 2. CAD in [place] artery (I25.10: Atherosclerotic heart disease of [place] coronary artery without angina pectoris) 3. HTN [...] CURRIE, Edinson Kuhn 09/24/2022 10:55 EDT Normal [facility] Comment on above: Result Comment: Elec tronically Signed By: Genevieve CURRIE, Tam Perez.ede\Date and Time Signed: 12/16/23 15:48 EDT CNOVon 05-03-2023 CNOV Office Visit (VASSMEdith) BETH STARKEY ([id number]) 1940 F Date Time Provider Department 05/03/23 12:00 PM JENA HICKS During your visit today, we recorded the following information about you: Temperature Pulse Respiration Blood pressure 98.3 degrees 86/minute 16/minute 103/59 Weight Height 65.8 kg 1.524 m Jena Hicks MD 05/03/2023 3:31 PM Signed [facility] [place] DEPARTMENT OF VASCULAR SURGERY OUTPATIENT VISIT DATE [...] PHYSICAL E (more content not included)... Normal [facility] CTA ABD/PELV WO/W IVCONon CTA ABD/PELV WO/W IVCON * * *Final Report* * * DATE OF EXAM: May 03 2023 1:27PM [facility] [place]A ABD/PELV WO/W IVCON / [...] stable BONES: degenerative changes of the spine Counter Maker (topogram) images: No additional findings. IMPRESSION: * [...] (more content not included)... Invalid Interpretation Code [facility] CTA CHEST (NONGATED) WO/W IV CONon 05-03-2023 CTA CHEST (NONGATED) WO/W IVCON * * *Final Report* * * DATE OF EXAM: May 03 2023 1:27PM [facility] [place] [place] - CTA CHEST (NONGATED) WO/W IVCON [...] stable BONES: degenerative changes of the spine Counter Maker (topogram) images: No additional findings. IMPRESSION: * [...] (more content not included)... Invalid Interpretation Code [facility] HISTORY PHYSICALon HISTORY PHYSICAL HNO ID: [id number] Author: Jena Hicks MD Service: ? Author Type: Physician Type: HANDP Filed: 05/03/2023 3:31 PM Note Text: [facility] [place] DEPARTMENT OF VASCULAR SURGERY OUTPATIENT VISIT DATE [...] EOM, pupils (more content not included)... Normal [facility] Charlie 04-25-2023 CNPN Telephone (PODCCP) BETH STARKEY ([id number]) 1940 F Date Time Provider Department 04/25/23 NO PCP PODCCP During your visit today, we recorded the following information about you: Alondra Quiros 04/25/2023 4:23 PM Signed Reason for call: Ms Starkey called,and she would like to schedule an appointment with vascular surgery Referred by Dr Judit Tate Home and cell number: [phone] Diagnosis: AAA Kind Regards Alondra Allergies As of Date: 04/25/2023 (Not on File) Date Reviewed: Never Reviewed Reason for Visit: Appointment [186] Problem List As Of Date: 04/25/2023 (None) Encounter Status:Closed by ALONDRA QUIROS on 04/25/23 [facility] CNPNon 04-22-2023 CNPN Telephone (REFPHY) BETH STARKEY ([id number]) 1940 F Date Time Provider Department 04/22/23 NO ONE (HISTORICAL) REFPHY During your visit today, we recorded the following information about you: Patrizia Orozco 04/22/2023 10:06 AM Signed Patient: Beth Starkey Date of : 1940 Patient phone number: [phone] Referring Provider for the encounter: Marck Tate MD Requesting Provider: N/A Reason for requesting visit (RFV/signs and symptoms/diagnosis): Sent Telephone Encounter - updated tracking. Person calling: caregiver: Patrizia Return call to: self Medical Records/Insurance Card scanned into [employer]: Yes Comments: N/A Allergies As of Date: 04/22/2023 (Not on File) Date Reviewed: Never Reviewed Reason for Visit: External Referrals/resources [909] Problem List As Of Date: 04/22/2023 (None) Encounter Status:Closed by PATRIZIA OROZCO on 04/22/23 [facility] CHEMISTRYOrdered By: SYSTEM SYSTEM on 09-24-2022 Creatinine [Mass/Vol] 0.8 mg/dL Normal 0.5 - 1.3 mg/dL [facility] [place] GFR/1.73 sq M.predicted among non-blacks MDRD (S/P/Bld) [Vol rate/Area] 74 mL/min/1.73 m2 Normal >=59mL/min/1. 73 m2 [facility] [place] CHEST WO CONon 08-02-2022 [...] KAYY KAUR Date: 2022-08-02 10:52 Normal [facility] [place] C. DIFF PCRon 07-28-2022 C. DIFFICILE PCR Negative Normal NEGATIVE [facility] Comment on above: Performed By: #### C DIFPOC #### [facility] [place] [facility] [address] [place] [address] Dr. Spencer Braun OCC BLD IMMUNO SCREENon 03-0 OCCULT BLOOD Negative Normal NEGATIVE [facility] Comment on above: Performed By: #### C BC #### [facility] [place] [facility] [address] [place] [address] Dr. Spencer Braun INSULINon 07-15-2022 Insulin 17.7 uIU/mL Normal 2.6-24.9 [facility] [place] Comment on above: Performed By: #### I NSULIN ####[facility] [place] [address] [place] [address]Dr. Spencer Braun BNPon 07-14-2022 Natriuretic peptide B (Bld) [Mass/Vol] 197.0 pg/mL Normal <=1,800.0 [facility] Comment on above: Performed By: #### B MOISTURE METER OPERATOR, LIPID, CMP, T7, TSH #### [facility] [place] [facility] [address] [place] [address] Dr. Spencer Braun CBC AUTO DIFFon 07-14-2022 BASO # 0.1 103/ul Normal 0.0-0.1 [facility] Comment on above: Performed By: #### C BC #### [facility] [place] [facility] [address] [place] [address] Dr. Spencer Braun Basophils/100 WBC (Bld) 0.9 % Normal 0.2-2.0 [facility] Comment on above: Performed By: #### C BC #### [facility] [place] [facility] [address] [place] [address] Dr. Spencer Braun EO # 0.2 103/ul Normal 0.0-0.7 [facility] [place] Comment on above: Performed By: #### C BC #### [facility] [place] [facility] [address] [place] [address] Dr. Spencer Braun Eosinophils/100 WBC (Bld) 2.5 % Normal 0.9-7.0 [facility] [place] Comment on above: Performed By: #### C BC #### [facility] [place] [facility] [address] [place] [address] Dr. Spencer Braun Erythrocyte distribution width (RBC) [Ratio] 13.8 % Normal 11.0-15.0 [facility] [place] Comment on above: Performed By: #### C BC #### [facility] [place] [facility] [address] [place] [address] Dr. Spencer Braun Hematocrit (Bld) [Volume fraction] 45.1 % Normal 36.0-48.0 [facility] Comment on above: Performed By: #### C BC #### [facility] [place] [facility] [address] [place] [address] Dr. Spencer Braun Hemoglobin (Bld) [Mass/Vol] 14.7 g/dL Normal 12.0-16.0 [facility] Comment on above: Performed By: #### C BC #### [facility] [place] [facility] [address] [place] [address] Dr. Spencer Braun IG # 0.04 10e3/ul Critically high 0.00-0.03 [facility] Comment on above: Performed By: #### C BC #### [facility] [place] [facility] [address] [place] [address] Dr. Spencer Braun IG % 0.5 % Normal 0.0-0.5 [facility] Comment on above: Performed By: #### C BC #### [facility] [place] [facility] [address] [place] [address] Dr. Spencer Braun LYMPH # 1.6 103/ul Normal 1.2-3.8 [facility] Comment on above: Performed By: #### C BC #### [facility] [place] [facility] [address] [place] [address] Dr. Spencer Braun Lymphocytes/100 WBC (Bld) 20.4 % Critically low 20.5-60.0 [facility] Comment on above: Performed By: #### C BC #### [facility] [place] [facility] [address] [place] [address] Dr. Spencer Braun MANUAL DIFF REQ NO Normal [facility] Comment on above: Performed By: #### C BC #### [facility] [place] [facility] [address] [place] [address] Dr. Spencer Braun MCH (RBC) [Entitic mass] 28.8 pg Normal 26.7-34.0 [facility] Comment on above: Performed By: #### C BC #### [facility] [place] [facility] [address] [address] [address] Spencer Braun MCHC (RBC) [Mass/Vol] 32.6 g/dL Normal 29.9-35.2 [facility] [place] Comment on above: Performed By: #### C BC #### [facility] [place] [facility] [id number] Spencer Braun MCV (RBC) [Entitic vol] 88.3 fL Normal 81.0-99.0 [facility] [place] Comment on above: Performed By: #### C BC #### [facility] [place] [facility] [address] [address] [address] Spencer Braun MONO # 0.5 103/ul Normal 0.3-0.8 [facility] Comment on above: Performed By: #### C BC #### [facility] [place] [facility] [address] [place] [address] Dr. Spencer Braun Monocytes/100 WBC (Bld) 6.5 % Normal 1.7-12.0 [facility] Comment on above: Performed By: #### C BC #### [facility] [place] [facility] [address] [place] [address] Dr. Spencer Braun NEUT # 5.4 103/ul Normal 1.4-6.5 [facility] Comment on above: Performed By: #### C BC #### [facility] [place] [facility] [address] [place], [place] [id number] Dr. Spencer Braun Neutrophils/100 WBC (Bld) 69.2 % Normal 43.0-75.0 [facility] [place] Comment on above: Performed By: #### C BC #### [facility] [place] [facility] [address] [place], [place] [id number] Dr. Spencer Braun Platelet mean volume (Bld) [Entitic vol] 9.1 fL Critically low 9.5-13.5 [facility] [place] Comment on above: Performed By: #### C BC #### [facility] [place] [facility] [address] [place] [address] Dr. Spencer Braun PLT 190 103/ul Normal 150-450 [facility] [place] Comment on above: Performed By: #### C BC #### [facility] [place] [facility] [address] [address] [address] Spencer Braun RBC 5.11 106/ul Normal 4.20-5.40 [facility] [place] Comment on above: Performed By: #### C BC #### [facility] [place] [facility] [address] [address] [address] Spencer Braun WBC 7.7 103/ul Normal 4.0-11.0 [facility] Comment on above: Performed By: #### C BC #### [facility] [place] [facility] [address] [address] [address] Spencer Braun FREE THYROXINE INDEX T7on FTI 2.87 Normal 1.30-4.50 [facility] [place] Comment on above: Performed By: #### B MOISTURE METER OPERATOR, LIPID, CMP, T7, TSH ####[facility] [place] [address] [place] [address]DrManish Braun T3U 33.0 % Normal 30.0-39.0 [facility] Comment on above: Performed By: #### B MOISTURE METER OPERATOR, LIPID, CMP, T7, TSH ####[facility] [place] [address] [place] [id number] Braun T4 [Mass/Vol] 8.70 ug/dL Normal 4.80-13.90 [facility] Comment on above: Performed By: #### B MOISTURE METER OPERATOR, LIPID, CMP, T7, TSH ####[facility] [place] [address] [place] [id number] Braun GLYCOHEMOGLOBIN A1Con 2022 ADA RECOMMENDATION SEE BELOW Normal [facility] Comment on above: Result Comment: ADA RECOMMENDED LIMIT 4.0 - 6.0 ADA THERAPEUTIC TARGET < 7.0 ACTION SUGGESTED > 7.0 Performed By: #### A 1C ####[facility] [place] [address] [place] [address]DrManish Braun Glucose [Mass/Vol] 123 mg/dL Normal [facility] Comment on above: Performed By: #### A 1C ####[facility] [place] [address] [place] [address]DrManish Braun HbA1c (Bld) [Mass fraction] 5.9 % Normal 4.5-6.2 [facility] Comment on above: Performed By: #### A 1C ####[facility] [place] [address] [place] [id number] Braun IRONon 07-14-2022 Iron [Mass/Vol] 70.0 ug/dL Normal 50.0-170.0 [facility] Comment on above: Performed By: #### V ITAD, IRON #### [facility] [place] [facility] [address] [place], [place] [address] Dr. Spencer Braun LIPID PROFILEon 07-14-2022 CHOL-HDL RATIO NORM SEE BELOW Normal [facility] Comment on above: Result Comment: 3.3 - 4.4 LOW RISK 4.4 - 7.1 AVERAGE RISK 7.1 - 11.0 MODERATE RISK >11.0 HIGH RISK Performed By: #### B MOISTURE METER OPERATOR, LIPID, CMP, T7, TSH ####[facility] [place] [address] [place] [id number]. Spencer Braun Cholesterol [Mass/Vol] 180 mg/dL Normal <=200 [facility] Comment on above: Performed By: #### B MOISTURE METER OPERATOR, LIPID, CMP, T7, TSH ####[facility] [place] [address] [place] [id number]. Spencer Braun Cholesterol in HDL [Mass/Vol] 50 mg/dL Normal 40-60 [facility] Comment on above: Performed By: #### B MOISTURE METER OPERATOR, LIPID, CMP, T7, TSH ####[facility] [place] [address] [place] [id number]. Spencer Braun Cholesterol in LDL [Mass/Vol] 105.8 mg/dL Normal [facility] Comment on above: Performed By: #### B MOISTURE METER OPERATOR, LIPID, CMP, T7, TSH ####[facility] [place] [address] [place] [id number]. Spencer Braun Cholesterol.total/Ch olesterol in HDL [Mass ratio] 3.6 {ratio} Normal [facility] Comment on above: Performed By: #### B MOISTURE METER OPERATOR, LIPID, CMP, T7, TSH ####[facility] [place] [address] [place] [id number]. Spencer Braun HDL NORMAL > or = 60 mg/dl - LOW CARDIOVASCULAR RISK <40 mg/dl - HIGH CARDIOVASCULAR RISK Normal [facility] Comment on above: Performed By: #### B MOISTURE METER OPERATOR, LIPID, CMP, T7, TSH ####[facility] [place] [address] [place] [address]Dr. Spencer Braun LDL CALC NORMAL SEE BELOW Normal [facility] Comment on above: Result Comment: <100 mg/dl OPTIMAL 100 - 129 mg/dl NEAR OR ABOVE OPTIMAL 130 - 159 mg/dl BORDERLINE HIGH 160 - 189 mg/dl HIGH >190 mg/dl VERY HIGH Performed By: #### B MOISTURE METER OPERATOR, LIPID, CMP, T7, TSH ####[facility] [place] [address] [place] [address]DrManish Braun Triglyceride [Mass/Vol] 121 mg/dL Normal <=150 [facility] Comment on above: Performed By: #### B MOISTURE METER OPERATOR, LIPID, CMP, T7, TSH ####[facility] [place] [address] [place] [address]DrManish Braun VLDL CALC 24.2 mg/dL Normal [facility] Comment on above: Performed By: #### B MOISTURE METER OPERATOR, LIPID, CMP, T7, TSH ####[facility] [place] [address] [place] [address]Dr. Spencer Braun PROF 14(COMP METB)on 023 Albumin [Mass/Vol] 3.8 g/dL Normal 3.4-5.0 [facility] Comment on above: Performed By: #### B MOISTURE METER OPERATOR, LIPID, CMP, T7, TSH #### [facility] [place] [facility] [address] [address] [address] Spencer Braun Albumin/Globulin [Mass ratio] 1.0 {ratio} Normal [facility] Comment on above: Performed By: #### B MOISTURE METER OPERATOR, LIPID, CMP, T7, TSH #### [facility] [place] [facility] [address] [address] [address] Spencer Braun ALP [Catalytic activity/Vol] 135 U/L Critically high 46-116 [facility] [place] Comment on above: Performed By: #### B MOISTURE METER OPERATOR, LIPID, CMP, T7, TSH #### [facility] [place] [facility] [address] [address] [address] Spencer Braun ALT [Catalytic activity/Vol] 20 U/L Normal 14-59 [facility] Comment on above: Performed By: #### B MOISTURE METER OPERATOR, LIPID, CMP, T7, TSH #### [facility] [place] [facility] [address] [place] [address] Dr. Spencer Braun Anion gap [Moles/Vol] 8.4 mmol/L Normal [facility] Comment on above: Performed By: #### B MOISTURE METER OPERATOR, LIPID, CMP, T7, TSH #### [facility] [place] [facility] [address] [place] [address] Dr. Spencer Braun AST [Catalytic activity/Vol] 14 U/L Critically low 15-37 [facility] Comment on above: Performed By: #### B MOISTURE METER OPERATOR, LIPID, CMP, T7, TSH #### [facility] [place] [facility] [address] [place] [address] Dr. Spencer Braun Bilirubin [Mass/Vol] 0.4 mg/dL Normal 0.2-1.0 [facility] Comment on above: Performed By: #### B MOISTURE METER OPERATOR, LIPID, CMP, T7, TSH #### [facility] [place] [facility] [address] [place] [address] Dr. Spencer Braun Calcium [Mass/Vol] 9.5 mg/dL Normal 8.5-10.1 [facility] Comment on above: Performed By: #### B MOISTURE METER OPERATOR, LIPID, CMP, T7, TSH #### [facility] [place] [facility] [address] [place] [address] Dr. Spencer Braun Chloride [Moles/Vol] 104 mmol/L Normal 98-107 [facility] [place] Comment on above: Performed By: #### B MOISTURE METER OPERATOR, LIPID, CMP, T7, TSH #### [facility] [place] [facility] [address] [place] [address] Dr. Spencer Braun CO2 [Moles/Vol] 32.0 mmol/L Normal 21.0-32.0 [facility] Comment on above: Performed By: #### B MOISTURE METER OPERATOR, LIPID, CMP, T7, TSH #### [facility] [place] [facility] [address] [place] [address] Dr. Spencer Braun Creatinine [Mass/Vol] 0.72 mg/dL Normal 0.55-1.02 [facility] Comment on above: Performed By: #### B MOISTURE METER OPERATOR, LIPID, CMP, T7, TSH #### [facility] [place] [facility] [address] [address] [address] Spencer Braun EGFR-AF VENEZUELAN >60 Normal >=60 [facility] Comment on above: Performed By: #### B MOISTURE METER OPERATOR, LIPID, CMP, T7, TSH #### [facility] [place] [facility] [address] [address] [address] Spencer Braun EGFR-NON AF VENEZUELAN >60 Normal >=60 [facility] Comment on above: Performed By: #### B MOISTURE METER OPERATOR, LIPID, CMP, T7, TSH #### [facility] [place] [facility] [address] [place] [address] Dr. Spencer Braun Globulin (S) [Mass/Vol] 3.9 g/dL Normal [facility] Comment on above: Performed By: #### B MOISTURE METER OPERATOR, LIPID, CMP, T7, TSH #### [facility] [place] [facility] [address] [address] [address] Spencer Braun Glucose [Mass/Vol] 127 mg/dL Critically high 74-106 [facility] Comment on above: Performed By: #### B MOISTURE METER OPERATOR, LIPID, CMP, T7, TSH #### [facility] [place] [facility] [address] [address] [address] Spencer Braun Potassium [Moles/Vol] 4.4 mmol/L Normal 3.5-5.1 [facility] Comment on above: Performed By: #### B MOISTURE METER OPERATOR, LIPID, CMP, T7, TSH #### [facility] [place] [facility] [address] [address] [address] Spencer Braun Protein [Mass/Vol] 7.7 g/dL Normal 6.4-8.2 [facility] Comment on above: Performed By: #### B MOISTURE METER OPERATOR, LIPID, CMP, T7, TSH #### [facility] [place] [facility] [address] [address] [address] Spencer Braun Sodium [Moles/Vol] 140 mmol/L Normal 136-145 [facility] Comment on above: Performed By: #### B MOISTURE METER OPERATOR, LIPID, CMP, T7, TSH #### [facility] [place] [facility] [address] [place] [address] Dr. Spencer Braun Urea nitrogen [Mass/Vol] 18.0 mg/dL Normal 7.0-18.0 [facility] Comment on above: Performed By: #### B MOISTURE METER OPERATOR, LIPID, CMP, T7, TSH #### [facility] [place] [facility] [address] [place] [address] Dr. Spencer Braun Urea nitrogen/Creatinine [Mass ratio] 25.0 mg/mg Normal [facility] Comment on above: Performed By: #### B MOISTURE METER OPERATOR, LIPID, CMP, T7, TSH #### [facility] [address] [place] [address] Dr. Spencer Braun TSHon 07-14-2022 TSH 1.760 uIU/mL Normal 0.358-3.740 [facility] Comment on above: Performed By: #### B MOISTURE METER OPERATOR, LIPID, CMP, T7, TSH #### [facility] [address] [place] [address] Dr. Spencer Braun VITAMIN D 25 OHon 07-14-2022 VIT D 25-OH 85.7 ng/mL Normal [facility] Comment on above: Performed By: #### V DEBORAH, IRON #### [facility] [address] [place] [address] Dr. Spencer Braun VIT D RANGES SEE BELOW Normal [facility] Comment on above: Result Comment: <20 ng/mL Vit D deficient 20 - <30 ng/mL Vit D insufficient 30 - 100 ng/mL Vit D sufficient >100 ng/mL Potential Toxicity Performed By: #### V ITKINGS, IRON #### [facility] [address] [place] [address] Dr. Spencer Braun CBC AUTO DIFFon 04-30-2022 BASO # 0.1 103/ul Normal 0.0-0.1 [facility] Comment on above: Performed By: #### C BC #### [facility] [address] [place] [address] Dr. Spencer Braun Basophils/100 WBC (Bld) 0.9 % Normal 0.2-2.0 [facility] Comment on above: Performed By: #### C BC #### [facility] [address] [place] [address] Dr. Spencer Braun EO # 0.2 103/ul Normal 0.0-0.7 [facility] Comment on above: Performed By: #### C BC #### [facility] [address] [place] [address] Dr. Spencer Braun Eosinophils/100 WBC (Bld) 2.1 % Normal 0.9-7.0 [facility] Comment on above: Performed By: #### C BC #### [facility] [address] [place] [address] Dr. Spencer Braun Erythrocyte distribution width (RBC) [Ratio] 13.9 % Normal 11.0-15.0 [facility] Comment on above: Performed By: #### C BC #### [facility] [address] [place] [address] Dr. Spencer Braun Hematocrit (Bld) [Volume fraction] 46.2 % Normal 36.0-48.0 [facility] Comment on above: Performed By: #### C BC #### [facility] [address] [place] [address] Dr. Spencer Braun Hemoglobin (Bld) [Mass/Vol] 15.1 g/dL Normal 12.0-16.0 [facility] Comment on above: Performed By: #### C BC #### [facility] [address] [place] [address] Dr. Spencer Braun IG # 0.05 10e3/ul Critically high 0.00-0.03 [facility] Comment on above: Performed By: #### C BC #### [facility] [address] [place] [address] Dr. Spencer Braun IG % 0.6 % Critically high 0.0-0.5 [facility] Comment on above: Performed By: #### C BC #### [facility] [address] [place] [address] Dr. Spencer Braun LYMPH # 1.7 103/ul Normal 1.2-3.8 [facility] Comment on above: Performed By: #### C BC #### [facility] [address] [place] [address] Dr. Spencer Braun Lymphocytes/100 WBC (Bld) 20.3 % Critically low 20.5-60.0 [facility] Comment on above: Performed By: #### C BC #### [facility] [address] [place] [address] Dr. Spencer Braun MANUAL DIFF REQ NO Normal [facility] Comment on above: Performed By: #### C BC #### [facility] [address] [place] [address] Dr. Spencer Braun MCH (RBC) [Entitic mass] 28.8 pg Normal 26.7-34.0 [facility] Comment on above: Performed By: #### C BC #### [facility] [address] [place] [address] Dr. Spencer Braun MCHC (RBC) [Mass/Vol] 32.7 g/dL Normal 29.9-35.2 [facility] Comment on above: Performed By: #### C BC #### [facility] [address] [place] [address] Dr. Spencer Braun MCV (RBC) [Entitic vol] 88.2 fL Normal 81.0-99.0 [facility] Comment on above: Performed By: #### C BC #### [facility] [address] [place] [address] Dr. Spencer Braun MONO # 0.6 103/ul Normal 0.3-0.8 [facility] Comment on above: Performed By: #### C BC #### [facility] [address] [place] [address] Dr. Spencer Braun Monocytes/100 WBC (Bld) 7.1 % Normal 1.7-12.0 [facility] Comment on above: Performed By: #### C BC #### [facility] [address] [place] [address] Dr. Spencer Braun NEUT # 5.7 103/ul Normal 1.4-6.5 [facility] Comment on above: Performed By: #### C BC #### [facility] [address] [address] [address] Spencer Braun Neutrophils/100 WBC (Bld) 69.0 % Normal 43.0-75.0 [facility] Comment on above: Performed By: #### C BC #### [facility] [address] [address] [address] Spencer Braun Platelet mean volume (Bld) [Entitic vol] 9.2 fL Critically low 9.5-13.5 [facility] Comment on above: Performed By: #### C BC #### [facility] [address] [address] [address] Spencer Braun PLT 180 103/ul Normal 150-450 [facility] Comment on above: Performed By: #### C BC #### [facility] [address] [address] [address] Spencer Braun RBC 5.24 106/ul Normal 4.20-5.40 [facility] Comment on above: Performed By: #### C BC #### [facility] [address] [address] [address] Spencer Braun WBC 8.2 103/ul Normal 4.0-11.0 [facility] Comment on above: Performed By: #### C BC #### [facility] [address] [address] [address] Spencer Braun FREE T3on 04-30-2022 FREE T3 2.98 pg/mlL Normal 2.18-3.98 [facility] Comment on above: Performed By: #### L IPID, TSH, T4, FT3, CMP ####[facility] [address] [address]Dr. Spencer Braun GLYCOHEMOGLOBIN A1Con 2021 ADA RECOMMENDATION SEE BELOW Normal [facility] Comment on above: Result Comment: ADA RECOMMENDED LIMIT 4.0 - 6.0 ADA THERAPEUTIC TARGET < 7.0 ACTION SUGGESTED > 7.0 Performed By: #### A 1C ####[facility] [address] [address]Dr. Spencer Braun Glucose [Mass/Vol] 134 mg/dL Normal [facility] Comment on above: Performed By: #### A 1C ####[facility] [address] [address]Dr. Spencer Braun HbA1c (Bld) [Mass fraction] 6.3 % Critically high 4.5-6.2 [facility] Comment on above: Performed By: #### A 1C ####[facility] [address] [address]Dr. Spencer Braun LIPID PROFILEon 04-30-2022 CHOL-HDL RATIO NORM SEE BELOW Normal [facility] Comment on above: Result Comment: 3.3 - 4.4 LOW RISK 4.4 - 7.1 AVERAGE RISK 7.1 - 11.0 MODERATE RISK >11.0 HIGH RISK Performed By: #### L IPID, TSH, T4, FT3, CMP ####[facility] [address] [address]Dr. Spencer Braun Cholesterol [Mass/Vol] 177 mg/dL Normal <=200 [facility] Comment on above: Performed By: #### L IPID, TSH, T4, FT3, CMP ####[facility] [address] [address]Dr. Spencer Braun Cholesterol in HDL [Mass/Vol] 56 mg/dL Normal 40-60 [facility] Comment on above: Performed By: #### L IPID, TSH, T4, FT3, CMP ####[facility] [address] [address]Dr. Spencer Braun Cholesterol in LDL [Mass/Vol] 97.8 mg/dL Normal [facility] Comment on above: Performed By: #### L IPID, TSH, T4, FT3, CMP ####[facility] [address] [address]Dr. Spencer Braun Cholesterol.total/Ch olesterol in HDL [Mass ratio] 3.2 {ratio} Normal [facility] Comment on above: Performed By: #### L IPID, TSH, T4, FT3, CMP ####[facility] [address] [id number]. Spencer Braun HDL NORMAL > or = 60 mg/dl - LOW CARDIOVASCULAR RISK <40 mg/dl - HIGH CARDIOVASCULAR RISK Normal [facility] Comment on above: Performed By: #### L IPID, TSH, T4, FT3, CMP ####[facility] [address] [address]Dr. Spencer Braun LDL CALC NORMAL SEE BELOW Normal [facility] Comment on above: Result Comment: <100 mg/dl OPTIMAL 100 - 129 mg/dl NEAR OR ABOVE OPTIMAL 130 - 159 mg/dl BORDERLINE HIGH 160 - 189 mg/dl HIGH >190 mg/dl VERY HIGH Performed By: #### L IPID, TSH, T4, FT3, CMP ####[facility] [address] [address]Dr. Spencer Braun Triglyceride [Mass/Vol] 116 mg/dL Normal <=150 [facility] Comment on above: Performed By: #### L IPID, TSH, T4, FT3, CMP ####[facility] [address] [address]Dr. Spencer Braun VLDL CALC 23.2 mg/dL Normal [facility] Comment on above: Performed By: #### L IPID, TSH, T4, FT3, CMP ####[facility] [address] [address]Dr. Spencer Braun PROF 14(COMP METB)on 022 Albumin [Mass/Vol] 3.8 g/dL Normal 3.4-5.0 [facility] Comment on above: Performed By: #### L IPID, TSH, T4, FT3, CMP ####[facility] [address] [address]Dr. Spencer Braun Albumin/Globulin [Mass ratio] 0.9 {ratio} Normal [facility] Comment on above: Performed By: #### L IPID, TSH, T4, FT3, CMP ####[facility] [address] [address]Dr. Spencer Braun ALP [Catalytic activity/Vol] 143 U/L Critically high 46-116 [facility] Comment on above: Performed By: #### L IPID, TSH, T4, FT3, CMP ####[facility] [address] [address]Dr. Spencer Braun ALT [Catalytic activity/Vol] 19 U/L Normal 14-59 [facility] Comment on above: Performed By: #### L IPID, TSH, T4, FT3, CMP ####[facility] [address] [place], [place] [address]Dr. Spencer Braun Anion gap [Moles/Vol] 12.1 mmol/L Normal [facility] Comment on above: Performed By: #### L IPID, TSH, T4, FT3, CMP ####[facility] [address] [place], [place] [address]Dr. Spencer Braun AST [Catalytic activity/Vol] 17 U/L Normal 15-37 [facility] Comment on above: Performed By: #### L IPID, TSH, T4, FT3, CMP ####[facility] [address] [place], [place] [address]Dr. Spencer Braun Bilirubin [Mass/Vol] 0.3 mg/dL Normal 0.2-1.0 [facility] Comment on above: Performed By: #### L IPID, TSH, T4, FT3, CMP ####[facility] [address] [place], [place] [address]Dr. Spencer Braun Calcium [Mass/Vol] 9.5 mg/dL Normal 8.5-10.1 [facility] Comment on above: Performed By: #### L IPID, TSH, T4, FT3, CMP ####[facility] [address] [place], [place] [address]Dr. Spencer Braun Chloride [Moles/Vol] 102 mmol/L Normal 98-107 [facility] Comment on above: Performed By: #### L IPID, TSH, T4, FT3, CMP ####[facility] [address] [address]Dr. Spencer Braun CO2 [Moles/Vol] 32.6 mmol/L Critically high 21.0-32.0 [facility] Comment on above: Performed By: #### L IPID, TSH, T4, FT3, CMP ####[facility] [address] [address]Dr. Spencer Braun Creatinine [Mass/Vol] 0.69 mg/dL Normal 0.55-1.02 [facility] Comment on above: Performed By: #### L IPID, TSH, T4, FT3, CMP ####[facility] [address] [place], [place] [address]Dr. Spencer Braun EGFR-AF VENEZUELAN >60 Normal >=60 [facility] Comment on above: Performed By: #### L IPID, TSH, T4, FT3, CMP ####[facility] [address] [place], [place] [address]Dr. Maemarek Braun EGFR-NON AF VENEZUELAN >60 Normal >=60 [facility] Comment on above: Performed By: #### L IPID, TSH, T4, FT3, CMP ####[facility] [address] [place], [place] [address]Dr. Spencer Braun Globulin (S) [Mass/Vol] 4.1 g/dL Normal [facility] Comment on above: Performed By: #### L IPID, TSH, T4, FT3, CMP ####[facility] [address] [place], [place] [address]Dr. Spencer Braun Glucose [Mass/Vol] 108 mg/dL Critically high 74-106 [facility] Comment on above: Performed By: #### L IPID, TSH, T4, FT3, CMP ####[facility] [address] [place], [place] [address]Dr. Spencer Braun Potassium [Moles/Vol] 4.7 mmol/L Normal 3.5-5.1 [facility] Comment on above: Performed By: #### L IPID, TSH, T4, FT3, CMP ####[facility] [address] [address]Dr. Spencer Braun Protein [Mass/Vol] 7.9 g/dL Normal 6.4-8.2 [facility] Comment on above: Performed By: #### L IPID, TSH, T4, FT3, CMP ####[facility] [address] [address]Dr. Spencer Braun Sodium [Moles/Vol] 142 mmol/L Normal 136-145 [facility] Comment on above: Performed By: #### L IPID, TSH, T4, FT3, CMP ####[facility] [address] [address]Dr. Spencer Braun Urea nitrogen [Mass/Vol] 19.0 mg/dL Critically high 7.0-18.0 [facility] Comment on above: Performed By: #### L IPID, TSH, T4, FT3, CMP ####[facility] [address] [address]Dr. Spencer Braun Urea nitrogen/Creatinine [Mass ratio] 27.5 mg/mg Normal [facility] Comment on above: Performed By: #### L IPID, TSH, T4, FT3, CMP ####[facility] [address] [address]Dr. Spencer Braun T4on 04-30-2022 T4 [Mass/Vol] 8.30 ug/dL Normal 4.80-13.90 [facility] Comment on above: Performed By: #### L IPID, TSH, T4, FT3, CMP ####[facility] [address] [address]Dr. Spencer Braun TSHon 04-30-2022 TSH 1.777 uIU/mL Normal 0.358-3.[address] [facility] Comment on above: Performed By: #### L IPID, TSH, T4, FT3, CMP ####[facility] [address] [address]Dr. Spencer Braun VITAMIN D 25 OHon 04-30-2022 VIT D 25-OH 72.1 ng/mL Normal [facility] Comment on above: Performed By: #### V ITAD #### [facility] [address] [address] [address] Spencer Braun VIT D RANGES SEE BELOW Normal [facility] Comment on above: Result Comment: <20 ng/mL Vit D deficient 20 - <30 ng/mL Vit D insufficient 30 - 100 ng/mL Vit D sufficient >100 ng/mL Potential Toxicity Performed By: #### V ITAD #### [facility] [address] [address] [address] Spenecr Braun MG MAMM SCREEN 3D AWAIS CADon 02-16-2022 MG MAMM SCREEN 3D AWAIS CAD Patient: BETH STARKEY Exam Date: 02/16/2022 : 1940 Gender:F Ordering : DR MARCK TATE . Admission #: [id number] Family : Order #: [id number] CLICK HERE TO VIEW EXAM RADIOLOGY REPORT [...] prostate cancer at age 71. LOCATION: [facility] BREAST COMPOSITION: Heterogeneously dense,which may obscure small [...] MD on 02/17/2022 at 07:39 Normal [facility] Vital Signs Date Time Vital Sign Value Performing Clinician Faci lity 08-15-2024 14:13-0400 Body mass index (BMI) [Ratio] 29.63 kg/m2 Forrest Ihsan DO Work Phone: [facility] 08-15-2024 14:13-0400 Body weight 71.12 kg Forrest Ihsan DO Work Phone: [facility] 08-15-2024 14:13-0400 Diastolic blood pressure 80 mm[Hg] Forrest Ihsan DO Work Phone: [facility] 08-15-2024 14:13-0400 Systolic blood pressure 114 mm[Hg] Forrest Ihsan DO Work Phone: [facility] 07-17-2024 15:08-0500 Body mass index (BMI) [Ratio] 29.44 kg/m2 Forrest Ihsan DO Work Phone: [facility] 07-17-2024 15:08-0500 Body weight 70.67 kg Forrest Ihsan DO Work Phone: [facility] 07-17-2024 15:08-0500 Diastolic blood pressure 70 mm[Hg] Forrest Ihsan DO Work Phone: [facility] 07-17-2024 15:08-0500 Systolic blood pressure 120 mm[Hg] Forrest Ihsan DO Work Phone: [facility] 12-16-2023 15:18-0400 Diastolic blood pressure 68 mm[Hg] Tam Kirnus [facility] 12-16-2023 15:18-0400 Systolic blood pressure 118 mm[Hg] Tam Kirnus [facility] 05-12-2023 10:13-0500 Diastolic blood pressure 72 mm[Hg] Sha Vallejo [facility] 05-12-2023 10:13-0500 Heart rate 94 /min Sha Vallejo [facility] 05-12-2023 10:13-0500 SaO2% (BldA) [Mass fraction] 90 % Sha Genevieve [facility] 05-12-2023 10:13-0500 Systolic blood pressure 130 mm[Hg] Sha Genevieve [facility] 05-03-2023 12:24-0500 Diastolic blood pressure 59 mm[Hg] Jena Hicks MD Work Phone: [facility] 05-03-2023 12:24-0500 Heart rate 86 /min Jena Hicks MD Work Phone: [facility] 05-03-2023 12:24-0500 Systolic blood pressure 103 mm[Hg] Jena Hicks MD Work Phone: [facility] 05-03-2023 12:14-0500 Body height 152.4 cm Jena Hicks MD Work Phone: [facility] 05-03-2023 12:14-0500 Body temperature 98.29 [degF] Jena Hicks MD Work Phone: [facility] 05-03-2023 12:14-0500 Body weight 65.82 kg Jena Hicks MD Work Phone: [facility] 05-03-2023 12:14-0500 Respiratory rate 16 /min Jena Hicks MD Work Phone: [facility] 05-03-2023 12:14-0500 SaO2% (BldA) [Mass fraction] 93 % Jena Hicks MD Work Phone: [facility] 09-06-2022 09:39-0400 Blood Pressure Location Dayron Jorgensen [facility] 09-06-2022 09:39-0400 Diastolic blood pressure 81 mm[Hg] Dayron Jorgensen [facility] 09-06-2022 09:39-0400 Heart rate 103 /min Dayron Jorgensen [facility] 09-06-2022 09:39-0400 SaO2% (BldA) [Mass fraction] 90 % Dayron Jorgensen [facility] 09-06-2022 09:39-0400 Systolic blood pressure 126 mm[Hg] Dayron Jorgensen [facility] Encounters Encounter Date Encounter Type [...] Start: 07-20-2024 End: 07-20-2024 ambulatory Tam [place]: 07-17-2024 End: 07-17-2024 Office outpatient visit [...] End: 07-06-2024 Patient encounter procedure Tam Vallejo [facility] Start: 01-20-2024 End: 01-20-2024 ambulatory [facility] Start: 01-09-2024 End: 01-10-2024 ambulatory [facility] Start: 12-16-2023 End: 12-17-2023 Pre-admission assessment Tam Card [facility] Start: 12-16-2023 End: 12-16-2023 ambulatory Tam D Mauricioedith [place] Start: 11-09-2023 End: 11-09-2023 ambulatory FORREST CHAMPAGNE Not Available Start: 05-12-2023 End: 05-12-2023 Patient encounter procedure Sha Vallejo [facility] Start: 05-04-2023 Orders Only Jena Hicks MD Work Phone: [facility] Comment on above: 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); Bilateral carotid artery stenosis; Other disorders of arteries, arterioles and capillaries in diseases classified elsewhere (HCC) Start: 05-03-2023 End: 05-03-2023 ambulatory JENA HICKS Facility:[facility] Start: 05-03-2023 End: 05-03-2023 Office outpatient visit 25 minutes Jena Hicks MD Work Phone: [facility] Comment on above: 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) Start: 04-26-2023 Orders Only Jena Hicks MD Work Phone: [facility] Comment on above: Chest pain, unspecif ied type (Primary Dx) Start: 04-25-2023 Telephone encounter No Pcp MELTER CASTER NOC Comment on above: Appointment Start: 04-22-2023 Telephone encounter No One (Historic al) Referring Physician Comment on above: External Referrals/r esources Start: 03-23-2023 End: 03-23-2023 Patient encounter procedure Sha Vallejo [facility] Start: 01-20-2023 End: 01-20-2023 Patient encounter procedure Sha Vallejo [facility] Start: 09-24-2022 End: 09-24-2022 Patient encounter procedure Dayron Jorgensen [facility] Start: 09-06-2022 End: 09-06-2022 Patient encounter procedure Dayron Jorgensen [facility] Start: 08-02-2022 End: 08-03-[address] MARCK TATE . Facility: Start: 07-28-2022 End: 07-28-[address] MARCK TATE . Facility:[facility] Start: 07-14-2022 End: 07-15-[address] MARCK TATE . Facility: Start: 04-30-2022 End: 05-01-[address] MARCK TATE . Facility: Start: 02-16-2022 End: 02-17-[address] MARCK TATE . Facility: Start: 06-17-2017 End: 06-18-2017 Ambulatory DEFAULT PHYSICIAN Facility:[facility] Plan of Treatment Date Care Activity Detail Author Start: 07-04-2029 Urine microalbumin profile DTaP,Tdap,Td Vaccine (2 - Td or Tdap) [facility] Start: 08-15-2024 End: 08-15-2024 Patient encounter procedure 08/15/2024 1:50 PM EDT Office Visit [facility] [address] [facility] [id number] Forrest Champagne, [address] [place] [address] Arrived [facility] Comment on above: Arrived Start: 08-07-2024 End: 08-07-2024 Professional / ancillary services management 08/07/2024 2:30 PM EDT Ancillary Procedure [facility] [address] [facility] [id number] [facility] Start: 07-17-2024 End: 07-17-2024 Patient encounter procedure 07/17/2024 2:40 PM EST Office [facility] [address] [place] [phone] Forrest Champagne, DO [address] [facility] [address] [place] [address] Arrived [facility] Comment on above: Arrived Start: 07-17-2024 End: 07-17-2025 US Pelvis US Pelvis w/ TV Imaging Routine Cyst of left ovary Expected: 07/17/2024, Expires: 07/17/2025 [facility] Work Phone: Comment on above: Expected: 07/17/2024 , Expires: 07/17/2025 Start: 01-22-2024 Influenza vaccination Influenza Vacc ine (#1) [facility] Start: 01-21-2023 Influenza vaccination Influenza Vacc ine (#1) [facility] Start: 05-23-2022 Advance Directive Discussion Advance Directive Discussion [facility] Start: 05-23-2022 Depression Assessment Depression Ass essment [facility] Start: 03-23-2018 Pneumococcal Vaccine : 65+ Years (2 of 2 - PPSV23 or PCV20) Pneumococcal Vaccine: 65+ Years (2 of 2 - PPSV23 or PCV20) [facility] Start: 05-18-2017 Pneumococcal Vaccine : 65+ (2 - PPSV23 or PCV20) Pneumococcal Vaccine: 65+ (2 - PPSV23 or PCV20) [facility] Start: 2006 Bone Density Screening Bone Density Screening [facility] Start: 2006 Pneumococcal Vaccine : 65+ (1 - PCV) Pneumococcal Vaccine: 65+ (1 - PCV) [facility] Start: 2006 Screening for osteoporosis Bone Density Screening [facility] Start: 2001 RSV Vaccine (1 - 1-d ose 60+ series) RSV Vaccine (1 - 1-dose 60+ series) [facility] Start: 1991 Shingrix Vaccine (1 of 2) Shingrix Vaccine (1 of 2) [facility] Start: 1986 Diabetes Screening Diabetes Screenin g [facility] Start: 1940 Covid-19 Vaccine (#1) Covid-19 Vacci ne (#1) [facility] End: 05-25-2024 Ct angio abd&plvis cntrst mtrl w/wo cntrst img CTA ABD/PEL WO/W IVCON Radiology Routine Chest pain, unspecified type 1 Occurrences starting 04/26/2023 until 05/25/2024 [facility] Work Phone: Comment on above: 1 Occurrences starti ng 04/26/2023 until 05/25/2024 End: 06-02-2024 Ct angio abd&plvis cntrst mtrl w/wo cntrst img CTA ABD/PEL WO/W IVCON Radiology Routine 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 Occurrences starting 05/04/2023 until 06/02/2024 [facility] Work Phone: Comment on above: 1 Occurrences starti ng 05/04/2023 until 06/02/2024 End: 05-25-2024 Ct angiography chest w/contrast/noncontrast CTA CHEST (NONGATED) WO/W IVCON Radiology Routine Chest pain, unspecified type 1 Occurrences starting 04/26/2023 until 05/25/2024 [facility] Work Phone: Comment on above: 1 Occurrences starti ng 04/26/2023 until 05/25/2024 End: 06-02-2024 Ct angiography chest w/contrast/noncontrast CTA CHEST (NONGATED) WO/W IVCON Radiology Routine 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 Occurrences starting 05/04/2023 until 06/02/2024 [facility] Work Phone: Comment on above: 1 Occurrences starti ng 05/04/2023 until 06/02/2024 End: 05-04-2024 PVR ANK/HILL/TOE AWAIS VAS LAB PVR ANK/HILL/TOE AWAIS VAS LAB Vascular Lab Routine 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) Other disorders of arteries, arterioles and capillaries in diseases classified elsewhere (HCC) 1 Occurrences starting 05/04/2023 until 05/04/2024 [facility] Work Phone: Comment on above: 1 Occurrences starti ng 05/04/2023 until 05/04/2024 End: 05-04-2024 US CAROTID ARTERIES AWAIS VAS LAB US CAROTID ARTERIES AWAIS VAS LAB Vascular Lab Routine Bilateral carotid artery stenosis 1 Occurrences starting 05/04/2023 until 05/04/2024 [facility] Work Phone: Comment on above: 1 Occurrences starti ng 05/04/2023 until 05/04/2024 [facility] Immunizations Immunization Date Immunization Notes Care Provider Fa sabrina 04-26-2023 influenza virus vacc ine, unspecified formulation Forrest Champagne DO Work Phone: [facility] Healthcare Payers Date Payer Category [employer]ayer [employer] ( and others) [id number] 2006 Medicare [id number] 1998 ([place]) [id number] 1959 [employer] ( and others) [id number] 1959 Medicare [id number] 1940 Unknown [id number] [id number]. 2.593 1941 Unknown [id number] 2.16.840.1.266806.3.579. 2.593 1941 Unknown [id number] 2.16.840.1.440493.3.579. 2.593 1941 Unknown [id number] 2.16.840.1.271915.3.579. 2.593 1941 Unknown [id number] 2.16.840.1.019006.3.579. 2.593 1941 Unknown [id number] 2.16.840.1.740061.3.579. 2.727 1941 Unknown [id number] 2.16.840.1.729800.3.579. 2.727 1941 Unknown [id number] 2.16.840.1.599631.3.579. 2.1259 1941 Unknown [id number] 2.16.840.1.073725.3.579. 2.1259 1941 Unknown [id number] 2.16.840.1.369780.3.579. 2.1259 1941 Unknown [id number] 2.16.840.1.822270.3.579. 2.1259 Unknown Social History Date Type Detail Facility Start: 09-06-2022 End: 12-16-2023 Tobacco smoking status Heavy tobacco smoker (finding) [facility] Start: 05-03-2023 [facility]igned At [facility] Start: 1940 Sex Assigned At Not on file C [facility] Start: 05-23-1956 [facility] Start: 05-23-1956 History of tobacco use Cigarette Smo ker [facility] Start: 05-03-2023 Cigarettes smoked current (pack per day) - Reported 1.5 [facility] Start: 05-03-2023 Tobacco use and exposure Smokeless tobacco non-user [facility] Start: 05-03-2023 Alcohol intake Current drinke r of alcohol (finding) [facility] National Score (1-10 0), lower number is lower risk 87 [facility] Start: 05-03-2023 Alcohol Comment football [facility] Functional Status Date Assessment Result Facility 12-16-2023 Functional Status N/A [facility] 05-12-2023 Functional Status N/A [facility] 09-06-2022 Functional Status No [facility] Clinical Notes 03-22-2023 to 08-15-2024 Patrizia [...] nursing note reviewed. Exam conducted with a cq developer present. Vitals: Estimated body mass index is [...] Forrest Champagne DO documented in this encounter [facility] 07-17-2024 History of Present illness Narrative Reason [...] nursing note reviewed. Exam conducted with a cq developer present. 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 [facility] 01-09-2024 Note [facility] Note Reason for cardiology consult: Dyspnea on exertion, prior history of CAD Chief Complaint: Dyspnea on exertion HPI: Beth Starkey is a 83 y.o. 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 [facility] 05-26-2023 Note Patient Outreach ( [facility]MM[facility]) BETH STARKEY ([id number]) 1940 F Date Time Provider Department 05/26/23 [...] and brochure sent Lung Nodule Program Location: [facility] As of Date: 05/26/2023 (No Known [...] Encounter Status:Closed by EVANGELINA BURNETT on 05/26/23 [facility] 05-26-2023 Note HNO ID: [id number] Author: ?, ?, ? Service: ? Author [...] sent [place] [facility] [place] Patient Outreach ([facility]) BETH STARKEY ([id number]) 1940 F Date Time Provider Department 05/18/23 CROW BELLOSteven During your visit today, we recorded the following information about you: Crow Bello, MELTER CASTER.[facility] 05/18/2023 11:12 AM Signed Incidental Lung Nodule Enrollment Outreach attempt: 1st Attempt Outreach status: Complete Enrolled in Lung Nodule program: Referred Lung Nodule outreach: No outreach - Very small nodule, letter and brochure sent Lung Nodule Program Location: [facility] As of Date: 05/18/2023 (No Known [...] Encounter Status:Closed by CROW BELLO on 05/18/23 [facility] 05-18-2023 Note HNO ID: [id number] Author: Crow Bello, MELTER CASTER.GENERAL ADMINISTRATOR Service: ? Author Type: Nurse Practitioner Type: Progress Notes Filed: 05/18/2023 11:12 AM Note Text: Incidental Lung Nodule Enrollment Outreach attempt: 1st Attempt Outreach status: Complete Enrolled in Lung Nodule program: Referred Lung Nodule outreach: No outreach - Very small nodule, letter and brochure sent Lung Nodule Program [place] [facility] [place]03-2023 Note HNO ID: [id number] Author: Nadine Cummins RN Service: Radiology Author [...] DATE: May 03, 2023 TIME: 1:00 PM [facility] 05-03-2023 Note HNO ID: [id number] Author: Kandy Aragon RT(R) Service: Radiology Author [...] RT Tess(R) May 03, 2023 1:19 PM [facility] 05-03-2023 History and physical note Heart , Vascular and Thoracic [place] DEPARTMENT OF VASCULAR SURGERY OUTPATIENT VISIT DATE [...] consultation at the request of Dr. Md Markc Tate. A copy of this consultation note [...] control. SIGNATURE: Jena Hicks MD PATIENT NAME: Bteh Starkey DATE: May 03, 2023 TIME: 12:42 [...] 4 - Moderate documented in this encounter [facility] 04-25-2023 Miscellaneous Notes Reason for call: Ms Starkey called,and she would like to schedule an appointment with vascular surgery Referred by Dr Judit Tate Home and cell number: [phone] Diagnosis: AAA Kind Regards Alondra documented in this encounter [facility] 04-22-2023 Miscellaneous Notes Patient: Beth Starkey Date of : 1940 Patient phone number: [phone] Referring Provider for the encounter: Marck Tate MD Requesting Provider: N/A Reason for requesting visit (RFV/signs and symptoms/diagnosis): Sent Telephone Encounter - updated tracking. Person calling: caregiver: Patrizia Return call to: self Medical Records/Insurance Card scanned into Epic: Yes Comments: N/A documented in this encounter [facility] 03-23-2023 Evaluation + Plan note Diagnostic Tests PendingCreatinine 03/23/23 Future Scheduled TestsCTA Abd Aorto-bilat/ iliofemoral runoff 03/22/23 [facility] 03-22-2023 Evaluation + Plan note Future Scheduled TestsCTA Abd Aorto-bilat/ iliofemoral runoff 03/22/23 [facility] Evaluation + Plan note Future Appointments Appointment Date:10/11/2022 10:00:00 AM Scheduled Provider:Dayron Jorgensen MD [facility] Type:Vascular Follow Up (FT) Future Scheduled TestsCTA Abdomen and Pelvis 09/06/22CTA Chest 09/06/22 [facility] Evaluation + Plan note Future Appointments Appointment Date:10/11/2022 10:00:00 AM Scheduled Provider:Dayron Jorgensen MD [facility] Type:Vascular Follow Up (FT) [facility] Evaluation + Plan note Future Scheduled TestsCTA Abd Aorto-bilat/ iliofemoral runoff 03/22/23 [facility] Evaluation + Plan note Future Appointments Appointment Date:06/18/2024 09:45:00 AM Scheduled Provider:Tam Vallejo MD [facility] Appoint[facility] Type:Cardiology Follow Up (FT) Future Scheduled TestsCTA Abd Aorto-bilat/ iliofemoral runoff 03/22/23 [facility] Evaluation + Plan note Future Appointments Appointment Date:07/20/2024 10:00:00 AM Scheduled Provider:Tam Vallejo MD [facility] [place] Appoint[facility] Type:Cardiology Follow Up (FT) Future Scheduled TestsLipid Panel 12/19/23NM Myocardial Spect Rest/Stress 1 Day 12/21/23Echo Transthoracic Complete 12/21/23CTA Abd Aorto-bilat/ iliofemoral runoff 03/22/23 [facility] Evaluation note Diagnosis Chest pain, unspecified type- Primary [facility] Diagnosis 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 [facility]* Diagnosis 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 Bilateral carotid artery stenosis Occlusion and stenosis of carotid artery without mention of cerebral infarction Other disorders of arteries, arterioles and capillaries in diseases classified elsewhere (HCC) documented [facility] Diagnosis Cyst of left ovary Other and unspecified ovarian cyst documented in this encounter [facility] HealthcareEvaluation note* Diagnosis Encounter to discuss test results Other specified counseling Cyst of left ovary Other and unspecified ovarian cyst documented in this encounter [facility] HealthcareHospital course Narrative No data available for this section [facility] Dis[facility] instructions No data available for this section [facility] note No data available for this section [facility] CenterReason for referral (narrative)* Outpatient Procedure (Routine) - Authorized Specialty Diagnoses / Procedures Referred By Manjula jovel Referred To Contact [facility] VASCULAR YE[place] Diagnoses 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) Other disorders of arteries, arterioles and capillaries in diseases classified elsewhere ([facility]) Procedures PVR ANK/HILL/TOE AWAIS VAS LAB NON-INVAS PHYSIOLOGIC STD EXTREMITY ART 2 LEVEL Jena Hicks MD [address] [place] [address] [facility] [place] [address] Referral ID Status Reason Start Date Expiration Date Visits Requested Visits Authorized [id number] Authorized Auto-Generat ed Referral 3 05/03/2024 1 1 * MRI/CT (Routine) - Authorized Specialty Diagnoses / Procedures Referred By Manjula jovel Referred To Contact CT IMAGING Diagnoses 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) Procedures CTA ABD/PEL WO/W IVCON CT ANGIO ABD&PLVIS CNTRST MTRL W/WO CNTRST Jena Todd MD [address] [place] [id number] [place] [address] Referral ID Status Reason Start Date Expiration Date Visits Requested Visits Authorized [id number] Authorized Auto-Generat ed Referral 3 06/02/2024 1 1 * MRI/CT (Routine) - Authorized Specialty Diagnoses / Procedures Referred By Contac t Referred To Contact CT IMAGING Diagnoses 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) Procedures CTA CHEST (NONGATED) WO/W IVCON CT ANGIOGRAPHY CHEST W/CONTRAST/NONCONTRAST Jena Hicks MD [address] [place] [address] Ct Imaging [facility] Referral ID Status Reason Start Date Expiration Date Visits Requested Visits Authorized [id number] Authorized Auto-Generat ed Referral 3 06/02/2024 1 1 * Outpatient Procedure (Routine) - Authorized Specialty Diagnoses / Procedures Referred By Contac t Referred [facility] Diagnoses Bilateral carotid artery stenosis Procedures US CAROTID ARTERIES AWAIS VAS LAB DUPLEX SCAN EXTRACRANIAL ART COMPL BI STUDY Jena Hicks MD [address] [place] [address] [facility] [address] [place] [address] Referral ID Status Reason Start Date Expiration Date Visits Requested Visits Authorized [id number] Authorized Auto-Generat ed Referral 3 05/03/2024 1 1 [facility] Summary Purpose Family History No [...] CNTRST MTRL W/WO CNTRST Jena Todd MD [address] [place] [address] [address] [facility] [place] [address] Referral ID Status Reason Start Date Expiration Date Visits Requested Visits Authorized [id number] Authorized Auto-Generat ed Referral 04/26/2023 05/25/2024 1 1 Specialty Diagnoses / Procedures Referred By Contac t Referred To Contact CT IMAGING Diagnoses Chest pain, unspecified type Procedures CTA CHEST (NONGATED) WO/W IVCON CT ANGIOGRAPHY CHEST W/CONTRAST/NONCONTRAST Jena Hicks MD [address] [place] [address] [address] [facility] [place] [address] Referral ID Status Reason Start Date Expiration Date Visits Requested Visits Authorized [id number] Authorized Auto-Generat ed Referral 04/26/2023 05/25/2024 1 1 Additional Source Comments INFORMATION SOURCE (unrecogn ized section and content) DATE CREATED AUTHOR 11/14/2017 [facility] DATE CREATED AUTHOR AUTHOR'S ORGANIZ ATION 08/09/2022 [facility] DATE CREATED AUTHOR AUTHOR'S ORGANIZ ATION 05/27/2023 [facility] DATE CREATED AUTHOR AUTHOR'S ORGANIZ ATION 01/22/2024 [facility] DATE CREATED AUTHOR AUTHOR'S ORGANIZ ATION 07/26/[address] [facility] DATE CREATED AUTHOR AUTHOR'S ORGANIZ ATION 08/16/2024 [facility] EPIC Patient Care team informatio n (unrecognized section and content) Chief Fundraising Officer Relationship Specialty Start Date End Date Marck Tate MD [address] [place] [phone] Family Medicine 04/22/23 Chief Fundraising Officer Relationship Specialty Start Date End Date Marck Tate MD [address] [place] [facility] [address] Family Medicine 04/22/23 Chief Fundraising Officer Relationship Specialty Start Date End Date Marck Tate MD [address] [place] [facility] [address] Family Medicine 04/22/23 Chief Fundraising Officer Relationship Specialty Start Date End Date Marck Tate MD [address] [place] [facility] [address] Family Medicine 04/22/23 Chief Fundraising Officer Relationship Specialty Start Date End Date Marck Tate MD [address] [place] [facility] [address] PCP - General Family Medicine 05/30/23 Chief Fundraising Officer Relationship Specialty Start Date End Date Marck Tate MD [address] [place] [facility] [address] PCP - General Family Medicine 05/30/23 Chief Fundraising Officer Relationship Specialty Start Date End Date Marck Tate MD [address] [place] [facility] [address] PCP - General Family Medicine 05/30/23 Chief Fundraising Officer Relationship Specialty Start Date End Date Marck Tate MD [address] [place] [facility] [address] PCP - General Family Medicine 05/30/23 Source Comments (unrecognize d section and content) In the event this informatio n is protected by the [facility] Confidentiality of Alcohol and Drug Abuse Patient Records regulations: The Federal rules restrict any use of the information to criminally investigate or prosecute any alcohol or drug abuse patient.[facility] the event this information is protected by the Federal Confidentiality of Alcohol and Drug Abuse Patient Records regulations: The Federal rules restrict any use of the information to criminally investigate or prosecute any alcohol or drug abuse patient.[facility] HospitalIn the event this information is protected by the Federal Confidentiality of Alcohol and Drug Abuse Patient Records regulations: The Federal rules restrict any use of the information to criminally investigate or prosecute any alcohol or drug abuse patient.[facility] HospitalIn the event this information is protected by the Federal Confidentiality of Alcohol and Drug Abuse Patient Records regulations: The Federal rules restrict any use of the information to criminally investigate or prosecute any alcohol or drug abuse patient.[facility] HospitalIn the event this information is protected by the Federal Confidentiality of Alcohol and Drug Abuse Patient Records regulations: The Federal rules restrict any use of the information to criminally investigate or prosecute any alcohol or drug abuse patient.[facility] Reason for Visit (unrecogniz ed [...] BE BASED ON THE PRIMARY CLINICAL RECORDS. [facility] [facility]. provides no warranty or guarantee of the accuracy or completeness of information in this document.
== END 2024-09-04 14:19 | disposition home or self-care (01) ==
LOC: CT 14:18
PROVIDERS: PCP Family Medicine; Visit Provider Internal Medicine Cardiovascular Disease
DX: Z01.818 Encounter for other preprocedural examination (principal); I72.9 Aneurysm of unspecified site; I74.3 Embolism and thrombosis of arteries of the lower extremities; E78.5 Hyperlipidemia, unspecified; J44.9 Chronic obstructive pulmonary disease, unspecified; I10 Essential (primary) hypertension; I25.10 Atherosclerotic heart disease of native coronary artery without angina pectoris; R91.1 Solitary pulmonary nodule; R73.09 Other abnormal glucose; D64.9 Anemia, unspecified; E55.9 Vitamin D deficiency, unspecified; I71.23 Aneurysm of the descending thoracic aorta, without rupture
CPT/HCPCS: 71250; 75635; Q9967

== ENCOUNTER 2024-09-04 14:25 | Outpatient (OUT) | payer MEDICARE, OTHER, SELFPAY ==
--- NOTE | 2024-09-04 14:29 | CT_ITS ---
The [address] [address] Patient Name: ADELA PARDO MRN: [id number] date: 1940 Sex: F Assigned Patient Location: LAB Current Patient Location: LAB Accession/Order Number: [id number] Exam Date: 09/04/2024 15:05 Report Date: 09/04/2024 15:10 At the request of: MARCK AMBROCIO MD Procedure: CT chest wo con CT CHEST WITHOUT IV CONTRAST: CLINICAL HISTORY: Chronic Obstructive Pulmonary Disease, Lung Nodule COMPARISON: CT chest 01/20/2024 CT chest 08/02/2022 TECHNIQUE: Spiral images were obtained through the chest without IV contrast. This CT exam was performed using one or more following dose reduction techniques: Automated exposure control, adjustment of the mA and/or kV according to patient size, or use of iterative reconstruction technique. FINDINGS: Mediastinum:Thoracic aorta demonstrates moderate calcification with aneurysmal dilatation of the descending thoracic aorta measuring 5 cm in greatest axial dimension. Pulmonary trunk appears nondilated. Trace pericardial fluid. Calcified mediastinal and right hilar lymph nodes. The esophagus is grossly unremarkable. Lungs:Emphysematous changes. Mild lung scarring. No consolidation pneumothorax or pleural effusion. No suspicious pulmonary nodule on today's study. Abd:No acute process. Soft tissues/Bones: No acute process. Osseous structures demonstrate degenerative change. CT/CT chest wo con IMPRESSION: No suspicious pulmonary nodule seen on today's study. Aneurysmal dilatation of the descending thoracic aorta unchanged from prior study of 01/20/2024 Impression dictated by: Julio Almazan Jr., DManishOManish09/04/2024 3:10 PM Dictation Location: [place] [address] Electronically authenticated by: [id number] Y Date: 09/04/2024 15:10
== END 2024-09-04 14:26 | disposition home or self-care (01) ==
LOC: LAB 14:25
PROVIDERS: PCP Family Medicine; Visit Provider Family Medicine
DX: E78.5 Hyperlipidemia, unspecified (principal); J44.9 Chronic obstructive pulmonary disease, unspecified; I10 Essential (primary) hypertension; I25.10 Atherosclerotic heart disease of native coronary artery without angina pectoris; R91.1 Solitary pulmonary nodule; R73.09 Other abnormal glucose; D64.9 Anemia, unspecified; E55.9 Vitamin D deficiency, unspecified; I71.23 Aneurysm of the descending thoracic aorta, without rupture
CPT/HCPCS: 71250

== ENCOUNTER 2025-01-25 15:36 | Outpatient (OUT) | payer MEDICARE, OTHER, SELFPAY ==
--- OUTSIDE RECORDS SUMMARY | 2025-01-25 15:46 | XMS_ITS | CCD ---
Author Organization [facility] Care Team Providers Care Die Cast Operator Name Role Phone PHYSICIAN, DEFAULT Unavailable Unavailable PHYSICIAN, DEFAULT Unavailable Unavailable MARCK TATE Unavailable Unavailable HOY ., DR ACHARYA Admitting Unavailable HOY ., DR ACHARYA Attending Unavailable HOY ., DR ACHARYA Primary Care Unavailable HOY ., DR ACHARYA Consulting Unavailable GRANDVIEW, DR SANDOVAL Ferguson Consulting Unavailable HOY ., [...] Unavailable Marck Tate MD Primary Care Provider TIMO CHAMPAGNE Attending Unavailable TIMO CHAMPAGNE Referring Unavailable TIMO CHAMPAGNE Attending Unavailable TIMO CHAMPAGNE Attending Unavailable Jus Del Castillo Attending Unavailable NONE, XXXX Referring Unavailable NONE, XXXX Referring Unavailable Tam Vallejo Attending Unavailable NONE, XXXX Referring Unavailable Petty, PA-C Nati A Attending Unavailable NONE, XXXX Referring Unavailable Kirnus, Tam D Attending Unavailable ANANDA Petty Attending Unavailable NONE, XXXX Referring Unavailable Allergies Allergy Classification Reported Allergen(s) Allergy Type Date of Onset Reaction(s) Facility (1 source) No Known Medication Allergies; Translations: [No Known Medication Allergies] Propensity to adverse reactions (disorder) [facility] Repository Medications Current Medications Medication Drug Class(es) Dates Sig (Normalized) Sig (Original) amLODIPine 2.5 mg oral tablet (12 sources) Dihydropyridine Calcium Channel Yessica Start: 07-20-2024 take 1 tablet by mouth once daily Norvasc 2.5 mg Tab 2.5 mg = 1 tab(s), Oral, Daily, # 90 tab(s), Refills(s) 0, Pharmacy: [id number], 152, cm, 07/20/24 10:08:00 EST, Height/Length Dosing, 72, kg, 07/20/24 10:08:00 EST, Weight Dosing Start Date: 07/20/24 Status: Ordered Quantity: 90.0 Unit: tab(s) Repeat number: 1 Start: 01-20-2023 take 1 tablet by caty th once daily amLODIPine 5 mg Tab 5 [...] aspirin 81 mg delayed release oral tablet (13 sources) Platelet Aggregation Inhibitor, Nonsteroidal Anti-inflammatory Drug Start: 05-12-2023 aspirin 81 mg Oral EC Tab Refills(s) 0 Start Date: 05/12/23 Status: Ordered Repeat number: 1 aspirin 81 MG ch ewable tablet Chew 81 mg in the morning. Active take 81 mg by mouth once daily B SUSANNA ASPIRIN ORAL Take 81 mg by mouth once daily. 0 Active Comment on above: Take 81 mg by mouth once daily. atorvastatin 40 mg oral tablet (10 sources) HMG-CoA Reductase Inhibitor Start: 12-16-19 take 1 tablet by mouth once daily Lipitor 40 mg Tab 40 mg = 1 tab(s), Oral, Daily, # 30 tab(s), Refills(s) 6, [id number], 152, cm, 12/16/23 15:27:00 EDT, Height/Length Dosing, 69.1, kg, 12/16/23 15:27:00 EDT, Weight Dosing Start Date: 12/19/23 Status: Ordered Quantity: 30.0 Unit: tab(s) Repeat number: 7 calcium carbonate (Tums) 250 mg (seldovia 100 mg) chewable split tablet (6 sources) calcium carbonat e (Tums) 250 mg (seldovia 100 mg) chewable split tablet Take 500 mg by mouth in the morning. Active cetirizine hydrochloride 10 mg oral tablet (17 sources) Histamine-1 Receptor Antagonist Start: 09-07-19 take 1 tablet by mouth once daily cetirizine 10 mg Tab 10 mg = 1 tab(s), Oral, Daily, # 30 tab(s), Refills(s) 0 Start Date: 09/06/22 Status: Ordered Quantity: 30.0 Unit: tab(s) Repeat number: 1 Comment on above: Take 1 tablet by [...] Take 1,000 Units by mouth once daily. clopidogrel 75 mg oral tablet (2 sources) P2Y12 Platelet Inhibitor Start: 07-20-2024 take 1 tablet by mouth once daily Plavix 75 mg Tab 75 mg = 1 tab(s), Oral, Daily, # 90 tab(s), Refills(s) 0, Pharmacy: [email or web address][id number], 152, cm, 07/20/24 10:08:00 EST, Height/Length Dosing, 72, kg, 07/20/24 10:08:00 EST, Weight Dosing Start Date: 07/20/24 Status: Ordered Quantity: 90.0 Unit: tab(s) Repeat number: 1 ezetimibe 10 mg oral tablet (6 sources) [...] every afternoon. glimepiride 2 mg oral tablet (15 sources) Sulfonylurea Start: 2022 glimepiride 2 mg Tab Refills(s) 0 Start Date: 01/20/23 Status: Ordered Repeat number: 1 Comment on above: Take 2 mg by [...] bedtime. metFORMIN hydrochloride 500 mg oral tablet (15 sources) Biguanide Start: 2022 metformin 500 mg Tab Refills(s) 0 Start Date: 01/20/23 Status: Ordered Repeat number: 1 Comment on above: Take 1 tablet by caty th every 12 hours. 24 hr metoprolol succinate 50 mg extended release oral tablet (12 sources) beta-Adrenergic Yessica Start: 2023 take 1 tablet by mouth once daily metoprolol succinate 50 mg ER Tab 50 mg = 1 tab(s), Oral, Daily, # 30 tab(s), Refills(s) 6, [facility]: [id number], 152, cm, 12/16/23 15:27:00 EDT, Height/Length Dosing, 69.1, kg, 12/16/23 15:27:00 EDT, Weight Dosing Start Date: 12/19/23 Status: Ordered Quantity: 30.0 Unit: tab(s) Repeat number: 7 Start: 12-16-2023 take 1 tablet by caty th once daily metoprolol succinate 25 mg ER Tab 25 mg = 1 tab(s), Oral, Daily, # 30 tab(s), Refills(s) 6, Pharmacy: [facility] #[id number], 152, cm, 12/16/23 15:27:00 EDT, Height/Length Dosing, 69.1, kg, 12/16/23 15:27:00 EDT, Weight Dosing Start Date: 12/16/23 Status: Ordered Quantity: 30.0 Unit: tab(s) Repeat number: 7 Multiple Vitamin (Multi-Vitamin) tablet (6 sources) take 1 tablet by mouth in the morning Multiple Vitamin (Multi-Vitamin) tablet Take 1 tablet by mouth in the morning. Active omeprazole 20 mg delayed release oral capsule (15 sources) Proton Pump Inhibitor Start: 01-21-20 omeprazole 20 mg Cap-DR 20 mg = 1 cap(s), Refills(s) 0 Start Date: 01/20/23 Status: Ordered Repeat number: 1 Comment on above: Take 20 mg by mouth once daily. pramipexole dihydrochloride 1 mg oral tablet (12 sources) Nonergot Dopamine Agonist Start: 04-04-20 pramipexole 1 mg Tab Refills(s) 0 Start Date: 12/16/23 Status: Ordered Repeat number: 1 Start: 04-04-2023 take 1 tablet by mouth [...] / salmeterol 0.05 mg/actuat dry powder inhaler (9 sources) Corticosteroid, beta2-Adrenergic Agonist Start: 04-06-2023 take 1 puff(s) by inhalation twice daily WIXELA INHUB 100-50 mcg/dose inhaler Inhale 1 Puff as instructed two times a day. 0 04/06/2023 Active Start: 01-20-2023 Wixela Inhub 1 00 mcg-50 mcg inhalation powder Refill(s) 0 Start Date: 01/20/23 Status: Ordered Repeat number: 1 Comment on above: Inhale 1 Puff as ins tructed two times a day. lisinopril 40 mg oral tablet (17 sources) Angiotensin Converting Enzyme Inhibitor Start: 03-17-2023 take 1 tablet by mouth once lisinopril (ZESTRIL) 40 mg tablet Take 1 tablet by mouth every afternoon. 0 03/17/2023 Active Start: 09-06-2022 take 1 tablet by caty th once daily lisinopril 10 mg Tab 10 mg = 1 tab(s), Oral, Daily, # 30 tab(s), Refills(s) 0 Start Date: 09/06/22 Status: Ordered Quantity: 30.0 Unit: tab(s) Repeat number: 1 take 1 tablet by caty th in the morning lisinopril 40 MG tablet Take 40 mg by mouth in the morning. Active Comment on above: Take 1 tablet by cayt th every afternoon. multivitamin (DAILY MULTI-VITAMIN) tablet [...] Episodic Aortic; peripheral; and visceral artery aneurysms (8 sources) Thoracic aortic aneurysm without rupture; Translations: [Thoracic aortic aneurysm, without rupture, unspecified] Onset: 3 Chronic Chronic obstructive pulmonary disease and bronchiectasis (5 sources) Chronic obstructive pulmonary disease, unspecified; Translations: [COPD UNSPECIFIED] Onset: 3 Chronic Congestive heart failure; nonhypertensive (1 source) Unspecified diastolic (congestive) heart failure; Translations: [UNSPECIFIED DIASTOLIC HEART FAILURE] Onset: 3 Chronic Coronary atherosclerosis and other heart disease (7 sources) Atherosclerotic heart disease of stebbins coronary artery without angina pectoris; Translations: [Coronary [...] Translations: [Hyperlipidemia] Onset: 3 Chronic Essential hypertension (8 sources) Essential hypertension; Translations: [Essential (primary) hypertension] [...] use; Translations: [Tobacco use] Onset: 4 Episodic Residual codes; unclassified (2 sources) Tobacco user 07-20-2024 Episodic Substance-related disorders (1 source) Nicotine dependence, [...] abnormal glucose; Translations: [OTHER ABNORMAL GLUCOSE] Onset: 12-15-2022 Episodic Malaise and fatigue (4 sources) Other [...] Facility Heart and Vascular Office/Cl inic Noteon 12-10-2024 Heart and Vascular Office/Clinic Note Heart and Vascular Office/Clinic Note Chief Complaint 2 Month follow up History of Present Illness The patient is a pleasant 84-year-old female with past cardiac history of coronary artery disease, PCI to the RCA with 2 stents in 1995, extensive thoracoabdominal aortic aneurysm, hypertension, diabetes, current smoker of at least a pack a day. Patient comes in for 2 month follow-up today. At last visit, I saw pt at which time I suggested that patient pursue left heart cath due to high risk stress test. Patient refused heart cath due to fear of complications. She was continued on current medications at last visit. Patient reports that she feels about the same as she has since last visit. She states that she is still having issues with shortness of breath, but they are a little bit better overall. She states that she was given nitro and has taken it a couple times due to increased heart palpitations and increased shortness of breath. She does feel the nitro helped a little bit when she took them. She states that she also has an inhaler that she tries and that seems to help as well. Patient has not had any specific chest pain at all since last visit. She is compliant with all current medications for CAD including aspirin, atorvastatin, metoprolol. However, patient is not taking amlodipine or Plavix at this time however previously suggested for her. At visit today, again discussed heart cath and patient again declined due to fear for complications during procedure. Patient blood pressure on the low side of normal today in the office. She denies any dizziness or lightheadedness at this time and does not have a very often at all at home either. She is compliant with blood pressure medications of lisinopril, metoprolol. However, she is not taking amlodipine that was previously prescribed. Patient does not have a BP cuff at home, so has not been able to obtain since last visit. Patient chest pain, dizziness/lightheade dness, swelling to lower extremities. REVIEWED PRIOR NOTE FROM 09/28/2024: Patient comes in for 1 month follow-up today. This is a telehealth visit as patient had to be rescheduled from [facility]. At last visit, patient saw Dr. Vallejo at which time he had suggested that patient pursue left heart cath due to high risk stress test. Patient refused heart cath due to fear of complications. She was then started on amlodipine 2.5 mg daily for antianginal and antihypertensive purposes, Plavix 75 mg daily. Patient was also ordered a CTA of the abdominal aorta to further evaluate AAA which she states she did not complete. Patient reports that she feels a little bit better overall than last visit. She states that she is still having issues with shortness of breath, but they are a little bit better overall. She states that she was given nitro at last visit and did take to the past month due to increased heart palpitations and increased shortness of breath. She does feel the nitro helped a little bit when she took them. She states that she also has an inhaler that she tries and that seems to help as well. Patient has not had any specific chest pain at all since last visit. She is compliant with all current medications for CAD including aspirin, atorvastatin, Plavix, metoprolol, amlodipine. She does think the addition of Plavix and amlodipine have helped her symptoms a little bit. At visit today, again discussed heart cath and patient again declined due to fear for complications during procedure. Unable to obtain patient's blood pressure in the office today. She is compliant with all blood pressure medications including amlodipine, lisinopril, metoprolol. Patient does not have a BP cuff at home, so has not been able to obtain since last visit. Patient chest pain, dizziness/lightheade dness, swelling to lower extremities. Review of Systems ROS - Provider Constitutional: no fever, no chills, no sweats, no weakness Respiratory: yes chronic shortness of breath, no cough Cardiovascular: no chest pain Neuro: no dizziness. no loss of consciousness Physical Exam Vitals & Measurements HR: 83(Peripheral) RR: 18 BP: 88/60 SpO2: 96% HT: 152 cm HT: 60 in WT: 70.9 kg WT: 156.308 lb BMI: 30.69 General: alert, no acute distress Cardiovascular: regular rate and rhythm, no murmur normal peripheral perfusion Respiratory: Lungs CTAB, respirations non labored Extremities: no edema left lower extremity. no edema right lower extremity Neurological: oriented x 4, LOC appropriate for age, speech normal Skin: Warm, dry, intact- no rash or concerning lesions Cardiac Diagnostics -see outside records Assessment/Plan 1. CAD in stebbins artery (I25.10: Atherosclerotic heart disease of stebbins coronary artery without angina pectoris) The patient has history of CAD with prior PCI. She also had a recent stress test that was positive and considered high risk due to large reversible defect. However, patient refused heart cath when proposed by Dr. Vallejo last month last month. Again asked (more content not included)... Normal [facility] Comment on above: Result Comment: Elec tronically Signed By: Jovanny MALAVE, Nati Christiansen\.br\Date and Time Signed: 12/10/24 08:27 EDT Heart and Vascular Office/Cl in Noteon 10-01-2024 Heart and Vascular Office/Clinic Note Heart and Vascular Office/Clinic Note Chief Complaint 1 month follow up; CAD; HTN; AAA History of Present Illness The patient is a pleasant 84-year-old female with past cardiac history of coronary artery disease, PCI to the RCA with 2 stents in 1995, extensive thoracoabdominal aortic aneurysm, hypertension, diabetes, current smoker of at least a pack a day. Patient comes in for 1 month follow-up today. This is a telehealth visit as patient had to be rescheduled from [facility]. At last visit, patient saw Dr. Vallejo at which time he had suggested that patient pursue left heart cath due to high risk stress test. Patient refused heart cath due to fear of complications. She was then started on amlodipine 2.5 mg daily for antianginal and antihypertensive purposes, Plavix 75 mg daily. Patient was also ordered a CTA of the abdominal aorta to further evaluate AAA which she states she did not complete. Patient reports that she feels a little bit better overall than last visit. She states that she is still having issues with shortness of breath, but they are a little bit better overall. She states that she was given nitro at last visit and did take to the past month due to increased heart palpitations and increased shortness of breath. She does feel the nitro helped a little bit when she took them. She states that she also has an inhaler that she tries and that seems to help as well. Patient has not had any specific chest pain at all since last visit. She is compliant with all current medications for CAD including aspirin, atorvastatin, Plavix, metoprolol, amlodipine. She does think the addition of Plavix and amlodipine have helped her symptoms a little bit. At visit today, again discussed heart cath and patient again declined due to fear for complications during procedure. Unable to obtain patient's blood pressure in the office today. She is compliant with all blood pressure medications including amlodipine, lisinopril, metoprolol. Patient does not have a BP cuff at home, so has not been able to obtain since last visit. Patient chest pain, dizziness/lightheade dness, swelling to lower extremities. Review of Systems ROS - Provider Constitutional: no fever, no chills, no sweats, no weakness Respiratory: yes chronic shortness of breath, no cough Cardiovascular: no chest pain Neuro: no dizziness. no loss of consciousness Physical Exam Vitals & Measurements HT: 152 cm HT: 60 in General: alert, no acute distress Neurological: oriented x 4, LOC appropriate for age, speech normal Cardiac Diagnostics -see outside records Assessment/Plan 1. CAD in stebbins artery (I25.10: Atherosclerotic heart disease of stebbins coronary artery without angina pectoris) The patient has history of CAD with prior PCI. She also had a recent stress test that was positive and considered high risk due to large reversible defect. However, patient refused heart cath when proposed by Dr. Vallejo last month last month. Again asked about heart cath during appointment today and patient refuses. She is compliant with all medications for CAD including aspirin 81 mg daily, atorvastatin 40 mg daily, Plavix 75 mg daily, metoprolol 25 mg ER daily. She is also compliant with amlodipine 2.5 mg daily that was started for anginal symptoms. She has not noticed a significant difference in shortness of breath and has not any chest pain since last visit. Continue current medication. 2. HTN (hypertension) (I10: Essential (primary) hypertension) Unable to obtain a blood pressure today as this was a telehealth visit. Patient is compliant with all blood pressure medications including amlodipine 2.5 mg daily, lisinopril 10 mg daily, metoprolol 75 mg ER daily. continue current medication 3. AAA (abdominal aortic aneurysm) (I71.40: Abdominal aortic aneurysm, without rupture, unspecified) Patient did not complete CTA with runoff that was ordered for her at last visit to assess AAA. Discussed again with her today during visit and again declines for now. Follow-up with Dr. Del Castillo in 1 month Portions of this record may have been created with voice recognition artificial intelligence software, specifically [employer], [employer] and or [employer]. Substitutions may have occurred due to the inherent limitations of voice recognition and artificial intelligence software. Follow-up No qualifying data available Problem List/Past Medical History Ongoing AAA (abdominal aortic aneurysm) CAD in stebbins artery HTN (hypertension) Historical No qualifying data Medications aspirin 81 mg Oral EC Tab cetirizine 10 mg Tab, 10 mg= 1 tab(s), Oral, Daily glimepiride 2 mg Tab Lipitor 40 mg Tab, 40 mg= 1 tab(s), Oral, Daily, 6 refills lisinopril 10 mg Tab, 10 mg= 1 tab(s), Oral, Daily metformin 500 mg Tab metoprolol succinate 25 mg ER Tab, 25 mg= 1 tab(s), Oral, Daily, 6 refills metoprolol succinate 50 mg ER Tab, 50 mg= 1 tab(s), Oral, Daily, 6 refills Norvasc 2.5 mg Tab, 2.5 mg= 1 (more content not included)... Normal [facility] Comment on above: Result Comment: Elec tronically Signed By: Jovanny MALAVE, Nati Christiansen\.ede\Date and Time Signed: 10/01/24 09:52 EDT US PELVIC COMPLETE W/ TVon 0 08-07-2024 [...] study. 3. Bilateral ovaries not visualized. Electronically Signed:Anneliseall y signed by ROBLES MADSEN II, MD, PHD at 09-Aug-2024 08:45:09 AM [facility] [place] Normal Not Available Comment on above: Order Comment: US PE LVIS-TRANSVAG IF INDICATED No LMP recorded. Patient is postmenopausal. Heart and Vascular Office/Cl inic Noteon 07-20-2024 Heart and Vascular Office/Clinic Note [...] as indicated. [1] Assessment/Plan 1. CAD in stebbins artery (I25.10: Atherosclerotic heart disease of stebbins coronary artery without angina pectoris) Exertional dyspnea [...] A PONCE (more content not included)... Normal [facility] Comment on above: Result Comment: Elec tronically Signed By: Genevieve CURRIE, Tam Spain\.br\Date and Time Signed: 07/20/24 10:27 EST Office Visiton 01-20-2024 Follow-up visit [id number] Beth Starkey 1940 F Date Provider Department Center 01/20/2024 [id number] HOPE MONSE [facility] Family History Problem Relation Age of Onset Heart attack Father Diabetes Sister Coronary artery disease Brother Aneurysm Brother Diabetes Brother Family Status - Relation Status Age at Father Sister Brother Level of Service:26846 OR OFFICE/OUTPATIENT ESTABLISHED MOD MDM 30 MIN Reason for Visit and Comments: Hyperlipidemia [182] Hypertension [732577] - Pt had a abnormal stress. Patient used the restroom in the ED right before apt and had a fall. She denies lightheadedness/dizz iness and syncope. She denies hiting her head. Shortness of Breath [[id number]] Normal [facility] Office Visiton 01-09-2024 Follow-up visit [id number] Beth Starkey 1940 F Date Provider Department Center 01/09/2024 [id number], SAMDANNIELLE MONSE [facility] Family History Problem Relation Age of Onset Heart attack Father Diabetes Sister Coronary artery disease Brother Aneurysm Brother Diabetes Brother Family Status - Relation Status Age at Father Sister Brother Level of Service:78753 OR OFFICE/OUTPATIENT NEW MODERATE MDM 45 MINUTES Reason for Visit and Comments: New Patient [632] - Pt complains of sob. Normal [facility] Heart and Vascular Office/Cl inic Noteon [...] aneurysm, without rupture, unspecified) 2. CAD in stebbins artery (I25.10: Atherosclerotic heart disease of stebbins coronary artery without angina pectoris) 3. HTN [...] CURRIE, Edinson Kuhn 09/24/2022 10:55 EDT Normal [facility] Comment on above: Result Comment: Elec tronically Signed By: Genevieve CURRIE, Tam Spain\.ede\Date and Time Signed: 12/16/23 15:48 EDT REILLYon 05-03-2023 CNDANIEL Office Visit (YURI) BETH STARKEY ([id number]) 1940 F Date Time Provider Department 05/03/23 12:00 PM JENA HICKS During your visit today, we recorded the following information about you: Temperature Pulse Respiration Blood pressure 98.3 degrees 86/minute 16/minute 103/59 Weight Height 65.8 kg 1.524 m Jena Hicks MD 05/03/2023 3:31 PM Signed [facility] [place] DEPARTMENT OF VASCULAR SURGERY OUTPATIENT VISIT DATE [...] E (more content not included)... Normal [facility] CTA ABD/PELV WO/W IVCONon CTA ABD/PELV WO/W IVCON * * *Final Report* * * DATE OF EXAM: May 03 2023 1:27PM [facility] [place]/PELV WO/W IVCON / [...] stable BONES: degenerative changes of the spine Assembler Brazer (topogram) images: No additional findings. IMPRESSION: * [...] content not included)... Invalid Interpretation Code [facility] CTA CHEST (NONGATED) WO/W IV CONon 05-03-2023 CTA CHEST (NONGATED) WO/W IVCON * * *Final Report* * * DATE OF EXAM: May 03 2023 1:27PM [facility] [place] CTA CHEST (NONGATED) WO/W IVCON [...] stable BONES: degenerative changes of the spine Assembler Brazer (topogram) images: No additional findings. IMPRESSION: * [...] content not included)... Invalid Interpretation Code [facility] HISTORY PHYSICALon HISTORY PHYSICAL HNO ID: [id number] Author: Jena Hicks MD Service: ? Author Type: Physician Type: HANDP Filed: 05/03/2023 3:31 PM Note Text: [facility] [place] DEPARTMENT OF VASCULAR SURGERY OUTPATIENT VISIT DATE [...] (more content not included)... Normal [facility] 04-25-2023 [facility] Telephone (PODCCP) BETH STARKEY ([id number]) 1940 F Date Time Provider Department 04/25/23 NO PCP PODCCP During your visit today, we recorded the following information about you: [facility] 04/25/2023 4:23 PM Signed Reason for call: Ms Starkey called,and she would like to schedule an appointment with vascular surgery Referred by Dr Judit Tate Home and cell number: [phone] Diagnosis: AAA Kind Regards Med Allergies As of Date: 04/25/2023 (Not on File) Date Reviewed: Never Reviewed Reason for Visit: Appointment [186] Problem List As Of Date: 04/25/2023 (None) Encounter Status:Closed by MED QUIROS on 04/25/23 [facility] B[facility] ST[facility] ([id number]) 1940 F Date Time Provider Department 04/22/23 NO ONE (HISTORICAL) REFPHY During your visit today, we recorded the following information about you: Patrizia Orozco 04/22/2023 10:06 AM Signed Patient: Beth Starkey Date of : 1940 Patient phone number: [phone] Referring Provider for the encounter: Marck Tate MD Requesting Provider: N/A Reason for requesting visit (RFV/signs and symptoms/diagnosis): Sent Telephone Encounter - updated tracking. Person calling: caregiver: Patrizia Return call to: self Medical Records/Insurance Card scanned into Epic: Yes Comments: N/A Allergies As of Date: 04/22/2023 (Not on File) Date Reviewed: Never Reviewed Reason for Visit: External Referrals/resources [909] Problem List As Of Date: 04/22/2023 (None) Encounter Status:Closed by PATRIZIA OROZCO on 04/22/23 [facility] CHEMISTRYOrdered By: SYSTEM SYSTEM on 09-24-2022 Creatinine [Mass/Vol] 0.8 mg/dL Normal 0.5 - 1.3 mg/dL [facility] Remisol GFR/1.73 sq M.predicted among non-blacks MDRD (S/P/Bld) [Vol rate/Area] 74 mL/min/1.73 m2 Normal >=59mL/min/1. 73 m2 [facility] Chem S CT CHEST WO CONon 08-02-2022 [...] KAYY KAUR Date: 2022-08-02 10:52 Normal [facility] C. DIFF PCRon 07-28-2022 C. DIFFICILE PCR Negative Normal NEGATIVE [facility] Comment on above: Performed By: #### C DIFPOC #### [facility] Laboratory [address] [place] [address] Dr. Spencer Braun OCC BLD IMMUNO SCREENon OCCULT BLOOD Negative Normal NEGATIVE [facility] Comment on above: Performed By: #### C BC #### [facility] Laboratory [address] [place] [address] Dr. Spencer Braun INSULINon 07-15-2022 Insulin 17.7 uIU/mL Normal 2.6-24.9 [facility] Comment on above: Performed By: #### I NSULIN ####[facility] [id number] [address]Dr. Spencer Braun BNPon 07-14-2022 Natriuretic peptide B (Bld) [Mass/Vol] 197.0 pg/mL Normal <=1,800.0 [facility] Comment on above: Performed By: #### B MIXER MACHINE FEEDER, LIPID, CMP, T7, TSH #### [facility] Laboratory [address] [address] [address] Spencer Braun CBC AUTO DIFFon 07-14-2022 BASO # 0.1 103/ul Normal 0.0-0.1 [facility] Comment on above: Performed By: #### C BC #### [facility] Laboratory [address] [place] [address] Dr. Spencer Braun Basophils/100 WBC (Bld) 0.9 % Normal 0.2-2.0 [facility] Comment on above: Performed By: #### C BC #### [facility] Laboratory [address] [place] [address] Dr. Spencer Braun EO # 0.2 103/ul Normal 0.0-0.7 [facility] Comment on above: Performed By: #### C BC #### [facility] Laboratory [address] [place] [address] Dr. Spencer Braun Eosinophils/100 WBC (Bld) 2.5 % Normal 0.9-7.0 [facility] Comment on above: Performed By: #### C BC #### [facility] Laboratory [address] [place] [address] Dr. Spencer Braun Erythrocyte distribution width (RBC) [Ratio] 13.8 % Normal 11.0-15.0 [facility] Comment on above: Performed By: #### C BC #### [facility] Laboratory [address] [place] [address] Dr. Spencer Braun Hematocrit (Bld) [Volume fraction] 45.1 % Normal 36.0-48.0 [facility] Comment on above: Performed By: #### C BC #### [facility] Laboratory [address] [place] [address] Dr. Spencer Braun Hemoglobin (Bld) [Mass/Vol] 14.7 g/dL Normal 12.0-16.0 [facility] Comment on above: Performed By: #### C BC #### [facility] Laboratory [address] [place] [address] Dr. Spencer Braun IG # 0.04 10e3/ul Critically high 0.00-0.03 [facility] Comment on above: Performed By: #### C BC #### [facility] Laboratory [address] [place] [address] Dr. Spencer Braun IG % 0.5 % Normal 0.0-0.5 [facility] Comment on above: Performed By: #### C BC #### [facility] Laboratory [address] [place] [address] Dr. Spencer Braun LYMPH # 1.6 103/ul Normal 1.2-3.8 [facility] Comment on above: Performed By: #### C BC #### [facility] Laboratory [address] [place] [address] Dr. Spencer Braun Lymphocytes/100 WBC (Bld) 20.4 % Critically low 20.5-60.0 [facility] Comment on above: Performed By: #### C BC #### [facility] Laboratory [address] [place] [address] Dr. Spencer Braun MANUAL DIFF REQ NO Normal [facility] Comment on above: Performed By: #### C BC #### [facility] Laboratory [address] [place] [address] Dr. Spencer Braun MCH (RBC) [Entitic mass] 28.8 pg Normal 26.7-34.0 [facility] Comment on above: Performed By: #### C BC #### [facility] Laboratory [address] [place] [address] Dr. Spencer Braun MCHC (RBC) [Mass/Vol] 32.6 g/dL Normal 29.9-35.2 [facility] Comment on above: Performed By: #### C BC #### [facility] Laboratory [address] [place] [address] Dr. Spencer Braun MCV (RBC) [Entitic vol] 88.3 fL Normal 81.0-99.0 [facility] Comment on above: Performed By: #### C BC #### [facility] Laboratory [address] [place] [address] Dr. Spencer Braun MONO # 0.5 103/ul Normal 0.3-0.8 [facility] Comment on above: Performed By: #### C BC #### [facility] Laboratory [address] [place] [address] Dr. Spencer Braun Monocytes/100 WBC (Bld) 6.5 % Normal 1.7-12.0 [facility] Comment on above: Performed By: #### C BC #### [facility] Laboratory [address] [place] [address] Dr. Spencer Braun NEUT # 5.4 103/ul Normal 1.4-6.5 [facility] Comment on above: Performed By: #### C BC #### [facility] Laboratory [address] [address] [address] Spencer Braun Neutrophils/100 WBC (Bld) 69.2 % Normal 43.0-75.0 [facility] Comment on above: Performed By: #### C BC #### [facility] Laboratory [address] [address] [address] Spencer Braun Platelet mean volume (Bld) [Entitic vol] 9.1 fL Critically low 9.5-13.5 [facility] Comment on above: Performed By: #### C BC #### [facility] Laboratory [address] [address] [address] Spencer Braun PLT 190 103/ul Normal 150-450 [facility] Comment on above: Performed By: #### C BC #### [facility] Laboratory [address] [place] [address] Dr. Spencer Braun RBC 5.11 106/ul Normal 4.20-5.40 [facility] Comment on above: Performed By: #### C BC #### [facility] Laboratory [address] [address] [address] Spencer Braun WBC 7.7 103/ul Normal 4.0-11.0 [facility] Comment on above: Performed By: #### C BC #### [facility] Laboratory [address] [address] [address] Spencer Braun FREE THYROXINE INDEX T7on FTI 2.87 Normal 1.30-4.50 [facility] Comment on above: Performed By: #### B MIXER MACHINE FEEDER, LIPID, CMP, T7, TSH ####[facility] [id number] [id number]. Spencer Braun T3U 33.0 % Normal 30.0-39.0 [facility] Comment on above: Performed By: #### B MIXER MACHINE FEEDER, LIPID, CMP, T7, TSH ####[facility] [id number] [id number]. Spencer Braun T4 [Mass/Vol] 8.70 ug/dL Normal 4.80-13.90 [facility] Comment on above: Performed By: #### B MIXER MACHINE FEEDER, LIPID, CMP, T7, TSH ####[facility] [address] [place], [place] [address]QaManish Braun GLYCOHEMOGLOBIN A1Con 2022 ADA RECOMMENDATION SEE BELOW Normal [facility] Comment on above: Result Comment: ADA RECOMMENDED LIMIT 4.0 - 6.0 ADA THERAPEUTIC TARGET < 7.0 ACTION SUGGESTED > 7.0 Performed By: #### A 1C ####[facility] [id number] [id number] Braun Glucose [Mass/Vol] 123 mg/dL Normal [facility] Comment on above: Performed By: #### A 1C ####[facility] [id number] [id number] Braun HbA1c (Bld) [Mass fraction] 5.9 % Normal 4.5-6.2 [facility] Comment on above: Performed By: #### A 1C ####[facility] [id number] [place] [id number] Braun IRONon 07-14-2022 Iron [Mass/Vol] 70.0 ug/dL Normal 50.0-170.0 [facility] Comment on above: Performed By: #### V ITAD, IRON #### [facility] [address] [place], [place] [address] Dr. Spencer Braun LIPID PROFILEon 07-14-2022 CHOL-HDL RATIO NORM SEE BELOW Normal [facility] Comment on above: Result Comment: 3.3 - 4.4 LOW RISK 4.4 - 7.1 AVERAGE RISK 7.1 - 11.0 MODERATE RISK >11.0 HIGH RISK Performed By: #### B MIXER MACHINE FEEDER, LIPID, CMP, T7, TSH ####[facility] [id number] [place], [place] [address]UyManish Braun Cholesterol [Mass/Vol] 180 mg/dL Normal <=200 [facility] Comment on above: Performed By: #### B MIXER MACHINE FEEDER, LIPID, CMP, T7, TSH ####[facility] [id number] [place] [id number] Braun Cholesterol in HDL [Mass/Vol] 50 mg/dL Normal 40-60 [facility] Comment on above: Performed By: #### B MIXER MACHINE FEEDER, LIPID, CMP, T7, TSH ####[facility] [address] [place] [id number]. Spencer Bruan Cholesterol in LDL [Mass/Vol] 105.8 mg/dL [facility] Comment on above: Performed By: #### B MIXER MACHINE FEEDER, LIPID, CMP, T7, TSH ####[facility] [id number] [id number]. Spencer Braun Cholesterol.total/Ch olesterol in HDL [Mass ratio] 3.6 {ratio} [facility] Comment on above: Performed By: #### B MIXER MACHINE FEEDER, LIPID, CMP, T7, TSH ####[facility] [address] [address]Dr. Spencer rBaun HDL NORMAL > or = 60 mg/dl - LOW CARDIOVASCULAR RISK <40 mg/dl - HIGH CARDIOVASCULAR RISK Normal [facility] Comment on above: Performed By: #### B MIXER MACHINE FEEDER, LIPID, CMP, T7, TSH ####[facility] [address] [address]Dr. Spencer Braun LDL CALC NORMAL SEE BELOW Normal [facility] Comment on above: Result Comment: <100 mg/dl OPTIMAL 100 - 129 mg/dl NEAR OR ABOVE OPTIMAL 130 - 159 mg/dl BORDERLINE HIGH 160 - 189 mg/dl HIGH >190 mg/dl VERY HIGH Performed By: #### B MIXER MACHINE FEEDER, LIPID, CMP, T7, TSH ####[facility] [address] [id number]. Spencer Braun Triglyceride [Mass/Vol] 121 mg/dL Normal <=150 [facility] Comment on above: Performed By: #### B MIXER MACHINE FEEDER, LIPID, CMP, T7, TSH ####[facility] [address] [address]Dr. Spencer Braun VLDL CALC 24.2 mg/dL [facility] Comment on above: Performed By: #### B MIXER MACHINE FEEDER, LIPID, CMP, T7, TSH ####[facility] [address] [address]Dr. Spencer Braun PROF 14(COMP METB)on 023 Albumin [Mass/Vol] 3.8 g/dL Normal 3.4-5.0 [facility] Comment on above: Performed By: #### B MIXER MACHINE FEEDER, LIPID, CMP, T7, TSH #### [facility] Laboratory [address] [address] [address] Spencer Braun Albumin/Globulin [Mass ratio] 1.0 {ratio} [facility] Comment on above: Performed By: #### B MIXER MACHINE FEEDER, LIPID, CMP, T7, TSH #### [facility] Laboratory [address] [place] [address] Dr. Spencer Braun ALP [Catalytic activity/Vol] 135 U/L Critically high 46-116 [facility] Comment on above: Performed By: #### B MIXER MACHINE FEEDER, LIPID, CMP, T7, TSH #### [facility] Laboratory [address] [place] [address] Dr. Spencer Braun ALT [Catalytic activity/Vol] 20 U/L Normal 14-59 [facility] Comment on above: Performed By: #### B MIXER MACHINE FEEDER, LIPID, CMP, T7, TSH #### [facility] Laboratory [address] [address] [address] Spencer Braun Anion gap [Moles/Vol] 8.4 mmol/L Normal [facility] Comment on above: Performed By: #### B MIXER MACHINE FEEDER, LIPID, CMP, T7, TSH #### [facility] Laboratory [address] [place] [address] Dr. Spencer Braun AST [Catalytic activity/Vol] 14 U/L Critically low 15-37 [facility] Comment on above: Performed By: #### B MIXER MACHINE FEEDER, LIPID, CMP, T7, TSH #### [facility] Laboratory [address] [address] [address] Spencer Braun Bilirubin [Mass/Vol] 0.4 mg/dL Normal 0.2-1.0 [facility] Comment on above: Performed By: #### B MIXER MACHINE FEEDER, LIPID, CMP, T7, TSH #### [facility] Laboratory [address] [place] [address] Dr. Spencer Braun Calcium [Mass/Vol] 9.5 mg/dL Normal 8.5-10.[address] [facility] Comment on above: Performed By: #### B MIXER MACHINE FEEDER, LIPID, CMP, T7, TSH #### [facility] Laboratory [address] [place] [address] Dr. Spencer Braun Chloride [Moles/Vol] 104 mmol/L Normal 98-107 [facility] Comment on above: Performed By: #### B MIXER MACHINE FEEDER, LIPID, CMP, T7, TSH #### [facility] Laboratory [address] [place] [address] Dr. Spencer Braun CO2 [Moles/Vol] 32.0 mmol/L Normal 21.0-32.0 [facility] Comment on above: Performed By: #### B MIXER MACHINE FEEDER, LIPID, CMP, T7, TSH #### [facility] Laboratory [address] [place] [address] Dr. Spencer Braun Creatinine [Mass/Vol] 0.72 mg/dL Normal 0.55-1.02 [facility] Comment on above: Performed By: #### B MIXER MACHINE FEEDER, LIPID, CMP, T7, TSH #### [facility] Laboratory [address] [place] [address] Dr. Spencer Braun EGFR-AF BHUTANESE >60 Normal >=60 [facility] Comment on above: Performed By: #### B MIXER MACHINE FEEDER, LIPID, CMP, T7, TSH #### [facility] Laboratory [address] [place] [address] Dr. Spencer Braun EGFR-NON AF BHUTANESE >60 Normal >=60 [facility] Comment on above: Performed By: #### B MIXER MACHINE FEEDER, LIPID, CMP, T7, TSH #### [facility] Laboratory [address] [place] [address] Dr. Spencer Braun Globulin (S) [Mass/Vol] 3.9 g/dL [facility] Comment on above: Performed By: #### B MIXER MACHINE FEEDER, LIPID, CMP, T7, TSH #### [facility] Laboratory [address] [place] [address] Dr. Spencer Braun Glucose [Mass/Vol] 127 mg/dL Critically high 74-106 [facility] Comment on above: Performed By: #### B MIXER MACHINE FEEDER, LIPID, CMP, T7, TSH #### [facility] Laboratory [address] [place] [address] Dr. Spencer Braun Potassium [Moles/Vol] 4.4 mmol/L Normal 3.5-5.1 [facility] Comment on above: Performed By: #### B MIXER MACHINE FEEDER, LIPID, CMP, T7, TSH #### [facility] Laboratory [address] [place] [address] Dr. Spencer Braun Protein [Mass/Vol] 7.7 g/dL Normal 6.4-8.2 [facility] Comment on above: Performed By: #### B MIXER MACHINE FEEDER, LIPID, CMP, T7, TSH #### [facility] Laboratory [address] [place] [address] Dr. Spencer Braun Sodium [Moles/Vol] 140 mmol/L Normal 136-145 [facility] Comment on above: Performed By: #### B MIXER MACHINE FEEDER, LIPID, CMP, T7, TSH #### [facility] Laboratory [address] [place] [address] Dr. Spencer Braun Urea nitrogen [Mass/Vol] 18.0 mg/dL Normal 7.0-18.0 [facility] Comment on above: Performed By: #### B MIXER MACHINE FEEDER, LIPID, CMP, T7, TSH #### [facility] Laboratory [address] [place] [address] Dr. Spencer Braun Urea nitrogen/Creatinine [Mass ratio] 25.0 mg/mg Normal [facility] Comment on above: Performed By: #### B MIXER MACHINE FEEDER, LIPID, CMP, T7, TSH #### [facility] Laboratory [address] [place] [address] Dr. Spencer Braun TSHon 07-14-2022 TSH 1.760 uIU/mL Normal 0.358-3.740 [facility] Comment on above: Performed By: #### B MIXER MACHINE FEEDER, LIPID, CMP, T7, TSH #### [facility] Laboratory [address] [place] [address] Dr. Spencer Braun VITAMIN D 25 OHon 07-14-2022 VIT D 25-OH 85.7 ng/mL Normal [facility] Comment on above: Performed By: #### V ITAD, IRON #### [facility] Laboratory [address] [place] [address] Dr. Spencer Braun VIT D RANGES SEE BELOW Normal [facility] Comment on above: Result Comment: <20 ng/mL Vit D deficient 20 - <30 ng/mL Vit D insufficient 30 - 100 ng/mL Vit D sufficient >100 ng/mL Potential Toxicity Performed By: #### V ITAD, IRON #### [facility] Laboratory [address] [place] [address] Dr. Spencer Braun CBC AUTO DIFFon 04-30-2022 BASO # 0.1 103/ul Normal 0.0-0.1 [facility] Comment on above: Performed By: #### C BC #### [facility] Laboratory [address] [place] [address] Dr. Spencer Braun Basophils/100 WBC (Bld) 0.9 % Normal 0.2-2.0 [facility] Comment on above: Performed By: #### C BC #### [facility] Laboratory [address] [place] [address] Dr. Spencer Braun EO # 0.2 103/ul Normal 0.0-0.7 [facility] Comment on above: Performed By: #### C BC #### [facility] Laboratory [address] [place] [address] Dr. Spencer Braun Eosinophils/100 WBC (Bld) 2.1 % Normal 0.9-7.0 [facility] Comment on above: Performed By: #### C BC #### [facility] Laboratory [address] [place] [address] Dr. Spencer Braun Erythrocyte distribution width (RBC) [Ratio] 13.9 % Normal 11.0-15.0 [facility] Comment on above: Performed By: #### C BC #### [facility] Laboratory [address] [place] [address] Dr. Spencer Braun Hematocrit (Bld) [Volume fraction] 46.2 % Normal 36.0-48.0 [facility] Comment on above: Performed By: #### C BC #### [facility] Laboratory [address] [place] [address] Dr. Spencer Braun Hemoglobin (Bld) [Mass/Vol] 15.1 g/dL Normal 12.0-16.0 [facility] Comment on above: Performed By: #### C BC #### [facility] Laboratory [address] [place] [address] Dr. Spencer Braun IG # 0.05 10e3/ul Critically high 0.00-0.03 [facility] Comment on above: Performed By: #### C BC #### [facility] Laboratory [address] [place] [address] Dr. Spencer Braun IG % 0.6 % Critically high 0.0-0.5 [facility] Comment on above: Performed By: #### C BC #### [facility] [address] [place] [address] Dr. Spencer Braun LYMPH # 1.7 103/ul Normal 1.2-3.8 [facility] Comment on above: Performed By: #### C BC #### [facility] Laboratory [address] [place] [address] Dr. Spencer Braun Lymphocytes/100 WBC (Bld) 20.3 % Critically low 20.5-60.0 [facility] Comment on above: Performed By: #### C BC #### [facility] Laboratory [address] [place] [address] Dr. Spencer Braun MANUAL DIFF REQ NO Normal [facility] Comment on above: Performed By: #### C BC #### [facility] [address] [place] [address] Dr. Spencer Braun MCH (RBC) [Entitic mass] 28.8 pg Normal 26.7-34.0 [facility] Comment on above: Performed By: #### C BC #### [facility] Laboratory [address] [place] [address] Dr. Spencer Braun MCHC (RBC) [Mass/Vol] 32.7 g/dL Normal 29.9-35.2 [facility] Comment on above: Performed By: #### C BC #### [facility] Laboratory [address] [place] [address] Dr. Spencer Braun MCV (RBC) [Entitic vol] 88.2 fL Normal 81.0-99.0 [facility] Comment on above: Performed By: #### C BC #### [facility] Laboratory [address] [address] [address] Spencer Braun MONO # 0.6 103/ul Normal 0.3-0.8 [facility] Comment on above: Performed By: #### C BC #### [facility] Laboratory [address] [address] [address] Spencer Braun Monocytes/100 WBC (Bld) 7.1 % Normal 1.7-12.0 [facility] Comment on above: Performed By: #### C BC #### [facility] Laboratory [address] [place] [address] Dr. Spencer Braun NEUT # 5.7 103/ul Normal 1.4-6.5 [facility] Comment on above: Performed By: #### C BC #### [facility] [address] [place] [address] Dr. Spencer Braun Neutrophils/100 WBC (Bld) 69.0 % Normal 43.0-75.0 [facility] Comment on above: Performed By: #### C BC #### [facility] [address] [place] [address] Dr. Spencer Braun Platelet mean volume (Bld) [Entitic vol] 9.2 fL Critically low 9.5-13.5 [facility] Comment on above: Performed By: #### C BC #### [facility] [address] [place] [address] Dr. Spencer Braun PLT 180 103/ul Normal 150-450 [facility] Comment on above: Performed By: #### C BC #### [facility] Laboratory [address] [place] [address] Dr. Spencer Braun RBC 5.24 106/ul Normal 4.20-5.40 [facility] Comment on above: Performed By: #### C BC #### [facility] Laboratory [address] [place] [address] Dr. Spencer Braun WBC 8.2 103/ul Normal 4.0-11.0 [facility] Comment on above: Performed By: #### C BC #### [facility] Laboratory [address] [place], [place] [address] Dr. Spencer Braun FREE T3on 04-30-2022 FREE T3 2.98 pg/mlL Normal 2.18-3.98 [facility] Comment on above: Performed By: #### L IPID, TSH, T4, FT3, CMP ####[facility] [address] [place] [id number] Braun GLYCOHEMOGLOBIN A1Con 2021 ADA RECOMMENDATION SEE BELOW Normal [facility] Comment on above: Result Comment: ADA RECOMMENDED LIMIT 4.0 - 6.0 ADA THERAPEUTIC TARGET < 7.0 ACTION SUGGESTED > 7.0 Performed By: #### A 1C ####[facility] [address] [place] [address]DrManish Braun Glucose [Mass/Vol] 134 mg/dL Normal [facility] Comment on above: Performed By: #### A 1C ####[facility] [address] [place] [address]DrManish Braun HbA1c (Bld) [Mass fraction] 6.3 % Critically high 4.5-6.2 [facility] Comment on above: Performed By: #### A 1C ####[facility] [address] [place] [address]Dr. Spencer Braun LIPID PROFILEon 04-30-2022 CHOL-HDL RATIO NORM SEE BELOW Normal [facility] Comment on above: Result Comment: 3.3 - 4.4 LOW RISK 4.4 - 7.1 AVERAGE RISK 7.1 - 11.0 MODERATE RISK >11.0 HIGH RISK Performed By: #### L IPID, TSH, T4, FT3, CMP ####[facility] [address] [place] [id number] Braun Cholesterol [Mass/Vol] 177 mg/dL Normal <=200 [facility] Comment on above: Performed By: #### L IPID, TSH, T4, FT3, CMP ####[facility] [address] [place] [id number] Braun Cholesterol in HDL [Mass/Vol] 56 mg/dL Normal 40-60 [facility] Comment on above: Performed By: #### L IPID, TSH, T4, FT3, CMP ####[facility] [address] [place] [address]Dr. Spencer Braun Cholesterol in LDL [Mass/Vol] 97.8 mg/dL Normal [facility] Comment on above: Performed By: #### L IPID, TSH, T4, FT3, CMP ####[facility] [address] [place] [address]Dr. Spencer Braun Cholesterol.total/Ch olesterol in HDL [Mass ratio] 3.2 {ratio} Normal [facility] Comment on above: Performed By: #### L IPID, TSH, T4, FT3, CMP ####[facility] [address] [place], [place] [address]Dr. Spencer Braun HDL NORMAL > or = 60 mg/dl - LOW CARDIOVASCULAR RISK <40 mg/dl - HIGH CARDIOVASCULAR RISK Normal [facility] Comment on above: Performed By: #### L IPID, TSH, T4, FT3, CMP ####[facility] [address] [place], [place] [address]Dr. Spencer Braun LDL CALC NORMAL SEE BELOW Normal [facility] Comment on above: Result Comment: <100 mg/dl OPTIMAL 100 - 129 mg/dl NEAR OR ABOVE OPTIMAL 130 - 159 mg/dl BORDERLINE HIGH 160 - 189 mg/dl HIGH >190 mg/dl VERY HIGH Performed By: #### L IPID, TSH, T4, FT3, CMP ####[facility] [address] [place] [address]Dr. Spencer Braun Triglyceride [Mass/Vol] 116 mg/dL Normal <=150 [facility] Comment on above: Performed By: #### L IPID, TSH, T4, FT3, CMP ####[facility] [address] [place], [place] [address]Dr. Spencer Braun VLDL CALC 23.2 mg/dL Normal [facility] Comment on above: Performed By: #### L IPID, TSH, T4, FT3, CMP ####[facility] [address] [place] [address]Dr. Spencer Braun PROF 14(COMP METB)on 022 Albumin [Mass/Vol] 3.8 g/dL Normal 3.4-5.[address] [facility] Comment on above: Performed By: #### L IPID, TSH, T4, FT3, CMP ####[facility] [address] [place] [address]Dr. Spencer Braun Albumin/Globulin [Mass ratio] 0.9 {ratio} Normal [facility] Comment on above: Performed By: #### L IPID, TSH, T4, FT3, CMP ####[facility] [address] [place] [address]Dr. Spencer Braun ALP [Catalytic activity/Vol] 143 U/L Critically high 46-116 [facility] Comment on above: Performed By: #### L IPID, TSH, T4, FT3, CMP ####[facility] [address] [place], [place] [address]Dr. Spencer Braun ALT [Catalytic activity/Vol] 19 U/L Normal 14-59 [facility] Comment on above: Performed By: #### L IPID, TSH, T4, FT3, CMP ####[facility] [address] [place] [address]Dr. Spencer Braun Anion gap [Moles/Vol] 12.1 mmol/L Normal [facility] Comment on above: Performed By: #### L IPID, TSH, T4, FT3, CMP ####[facility] [address] [place], [place] [address]Dr. Spencer Braun AST [Catalytic activity/Vol] 17 U/L Normal 15-37 [facility] Comment on above: Performed By: #### L IPID, TSH, T4, FT3, CMP ####[facility] [address] [place], [place] [address]Dr. Spencer Braun Bilirubin [Mass/Vol] 0.3 mg/dL Normal 0.2-1.0 [facility] Comment on above: Performed By: #### L IPID, TSH, T4, FT3, CMP ####[facility] [address] [place] [address]Dr. Spencer Braun Calcium [Mass/Vol] 9.5 mg/dL Normal 8.5-10.1 [facility] Comment on above: Performed By: #### L IPID, TSH, T4, FT3, CMP ####[facility] [address] [place] [address]Dr. Spencer Braun Chloride [Moles/Vol] 102 mmol/L Normal 98-107 [facility] Comment on above: Performed By: #### L IPID, TSH, T4, FT3, CMP ####[facility] [address] [place] [address]Dr. Spencer Braun CO2 [Moles/Vol] 32.6 mmol/L Critically high 21.0-32.0 [facility] Comment on above: Performed By: #### L IPID, TSH, T4, FT3, CMP ####[facility] [address] [place], [place] [address]Dr. Spencer Braun Creatinine [Mass/Vol] 0.69 mg/dL Normal 0.55-1.02 [facility] Comment on above: Performed By: #### L IPID, TSH, T4, FT3, CMP ####[facility] [address] [place], [place] [address]Dr. Spencer Braun EGFR-AF BHUTANESE >60 Normal >=60 [facility] Comment on above: Performed By: #### L IPID, TSH, T4, FT3, CMP ####[facility] [address] [place], [place] [address]Dr. Spencer Braun EGFR-NON AF BHUTANESE >60 Normal >=60 [facility] Comment on above: Performed By: #### L IPID, TSH, T4, FT3, CMP ####[facility] [address] [place], [place] [address]Dr. Spencer Braun Globulin (S) [Mass/Vol] 4.1 g/dL Normal [facility] Comment on above: Performed By: #### L IPID, TSH, T4, FT3, CMP ####[facility] [address] [place] [address]Dr. Spencer Braun Glucose [Mass/Vol] 108 mg/dL Critically high 74-106 [facility] Comment on above: Performed By: #### L IPID, TSH, T4, FT3, CMP ####[facility] [address] [place], [place] [address]Dr. Spencer Braun Potassium [Moles/Vol] 4.7 mmol/L Normal 3.5-5.1 [facility] Comment on above: Performed By: #### L IPID, TSH, T4, FT3, CMP ####[facility] [address] [place], [place] [address]Dr. Spencer Braun Protein [Mass/Vol] 7.9 g/dL Normal 6.4-8.2 [facility] Comment on above: Performed By: #### L IPID, TSH, T4, FT3, CMP ####[facility] [address] [place], [place] [address]Dr. Spencer Braun Sodium [Moles/Vol] 142 mmol/L Normal 136-145 [facility] Comment on above: Performed By: #### L IPID, TSH, T4, FT3, CMP ####[facility] [address] [place], [place] [address]Dr. Spencer Braun Urea nitrogen [Mass/Vol] 19.0 mg/dL Critically high 7.0-18.0 [facility] Comment on above: Performed By: #### L IPID, TSH, T4, FT3, CMP ####[facility] [address] [place], [place] [address]Dr. Spencer Braun Urea nitrogen/Creatinine [Mass ratio] 27.5 mg/mg Normal [facility] Comment on above: Performed By: #### L IPID, TSH, T4, FT3, CMP ####[facility] [address] [place], [place] [address]Dr. Spencer Braun T4on 04-30-2022 T4 [Mass/Vol] 8.30 ug/dL Normal 4.80-13.90 The [facility] Comment on above: Performed By: #### L IPID, TSH, T4, FT3, CMP ####[facility] [address] [place], [place] [address]AeManish Braun TSHon 04-30-2022 TSH 1.777 uIU/mL Normal 0.358-3.740 [facility] Comment on above: Performed By: #### L IPID, TSH, T4, FT3, CMP ####[facility] [address] [place], [place] [address]QkManish Braun VITAMIN D 25 OHon 04-30-2022 VIT D 25-OH 72.1 ng/mL Normal [facility] Comment on above: Performed By: #### V ITAD #### [facility] Laboratory [address] [place] [address] [address] Spencer Braun VIT D RANGES SEE BELOW Normal [facility] Comment on above: Result Comment: <20 ng/mL Vit D deficient 20 - <30 ng/mL Vit D insufficient 30 - 100 ng/mL Vit D sufficient >100 ng/mL Potential Toxicity Performed By: #### V ITAD #### [facility] Laboratory [address] [place], [place] [address] Dr. Spencer Braun MG MAMM SCREEN 3D AWAIS CADon 02-16-2022 MG MAMM SCREEN 3D AWAIS CAD Patient: BETH STARKEY Exam Date: 02/16/2022 : 1940 Gender:F Ordering : DR MARCK TATE . Admission #: [id number] Family : Order #: [id number] CLICK HERE TO VIEW EXAM RADIOLOGY REPORT [...] prostate cancer at age 71. LOCATION: The [facility] BREAST COMPOSITION: Heterogeneously dense,which may obscure small [...] MD on 02/17/2022 at 07:39 Normal [facility] Vital Signs Date Time Vital Sign Value Performing Clinician Tony jenkins 09-28-2024 14:15-0400 Measurement/Vitals Comment Unable to obtain; Telephone visit. Nati Petty [facility] 08-15-2024 14:13-0400 Body mass index (BMI) [Ratio] 29.63 kg/m2 Timo Ihsan DO Work Phone: [facility] 08-15-2024 14:13-0400 Body weight 71.12 kg Timo Ihsan DO Work Phone: [facility] 08-15-2024 14:13-0400 Diastolic blood pressure 80 mm[Hg] Timo Ihsan DO Work Phone: [facility] 08-15-2024 14:13-0400 Systolic blood pressure 114 mm[Hg] Timo Ihsan DO Work Phone: [facility] 07-17-2024 15:08-0500 Body mass index (BMI) [Ratio] 29.44 kg/m2 Timo Ihsan DO Work Phone: [facility] 07-17-2024 15:08-0500 Body weight 70.67 kg Timo Ihsan DO Work Phone: [facility] 07-17-2024 15:08-0500 Diastolic blood pressure 70 mm[Hg] Timo Ihsan DO Work Phone: [facility] 07-17-2024 15:08-0500 Systolic blood pressure 120 mm[Hg] Timo Ihsan DO Work Phone: [facility] 12-16-2023 15:18-0400 Diastolic blood pressure 68 mm[Hg] Tam Mauricionus [facility] 12-16-2023 15:18-0400 Systolic blood pressure 118 mm[Hg] Tam Mauricionus [facility] 05-12-2023 10:13-0500 Diastolic blood pressure 72 mm[Hg] Sha Barrerasilke [facility] 05-12-2023 10:13-0500 Heart rate 94 /min Sha Vallejo [facility] 05-12-2023 10:13-0500 SaO2% (BldA) [Mass fraction] 90 % Sha Rodpippasilke [facility] 05-12-2023 10:13-0500 Systolic blood pressure 130 mm[Hg] Sha Barrerasilke [facility] 05-03-2023 12:24-0500 Diastolic blood pressure 59 mm[Hg] Jena Hicks MD Work Phone: [facility] 05-03-2023 12:24-0500 Heart rate 86 /min Jena Hicks MD Work Phone: [facility] 05-03-2023 12:24-0500 Systolic blood pressure 103 mm[Hg] Jena Hicks MD Work Phone: [facility] 05-03-2023 12:14-0500 Body height 152.4 cm Jena Hicks MD Work Phone: [facility] 05-03-2023 12:14-0500 Body temperature 98.29 [degF] Jena Hicks MD Work Phone: [facility] 05-03-2023 12:14-0500 Body weight 65.82 kg Jena Hicks MD Work Phone: [facility] 05-03-2023 12:14-0500 Respiratory rate 16 /min Jena Hicks MD Work Phone: [facility] 05-03-2023 12:14-0500 SaO2% (BldA) [Mass fraction] 93 % Jena Hicks MD Work Phone: [facility] 09-06-2022 09:39-0400 Blood Pressure Location Dayron Jorgensen [facility] 09-06-2022 09:39-0400 Diastolic blood pressure 81 mm[Hg] Dayron Davidsonan [facility] 09-06-2022 09:39-0400 Heart rate 103 /min Dayron Davidsonan [facility] 09-06-2022 09:39-0400 SaO2% (BldA) [Mass fraction] 90 % Dayron Davidsonan [facility] 09-06-2022 09:39-0400 Systolic blood pressure 126 mm[Hg] [facility] Encounters Encounter Date Encounter Type Care Provider Facility Start: 12-07-2024 End: 12-07-2024 ambulatory XXXX NONE Facility:[facility] Start: 09-28-2024 End: 09-28-2024 Patient encounter procedure Nati Petty [facility] Start: 09-28-2024 End: 09-28-2024 ambulatory PA-C Nati Petty Facility:[facility] Start: 08-16-2024 End: 09-28-2024 Patient encounter procedure Jus Del Castillo [facility] Start: 08-15-2024 End: 08-15-2024 Bamboo flowsheet Timo Ishan DO Work Phone: [facility] Start: 08-15-2024 End: 08-15-2024 Bamboo flowsheet Timo Ihsan DO Work Phone: [facility] Start: 08-15-2024 End: 08-15-2024 Office outpatient visit 15 minutes Timo Ihsan DO Work Phone: [facility] Comment on above: Encounter to discuss test results; Cyst of left ovary Start: 08-15-2024 End: 08-15-2024 ambulatory TIMO IHSAN Not Available Start: 08-07-2024 End: 08-07-2024 ambulatory TIMO IHSAN Not Available Start: 07-20-2024 End: 07-20-2024 ambulatory XXXX NONE Facility:[facility] Start: 07-17-2024 End: 07-17-2024 Office outpatient visit 15 minutes Timo Ihsan DO Work Phone: [facility] Comment on above: Cyst of left ovary Start: 07-17-2024 End: 07-17-2024 ambulatory TIMO IHSAN Not Available Start: 07-17-2024 End: 07-17-2024 Bamboo flowsheet Timo Ihsan DO Work Phone: [facility] Start: 07-17-2024 End: 07-17-2024 Bamboo flowsheet Timo Ihsan DO Work Phone: [facility] Start: 06-18-2024 End: 07-06-2024 Patient encounter procedure Tam Vallejo [facility] Start: 01-20-2024 End: 01-20-2024 ambulatory [facility] Start: 01-09-2024 End: 01-10-2024 ambulatory [facility] Start: 12-16-2023 End: 12-17-2023 Pre-admission assessment Tam Vallejo [facility] Start: 12-16-2023 End: 12-16-2023 ambulatory XXXX NONE Facility:[facility] Start: 11-09-2023 End: 11-09-2023 ambulatory TIMO CHAMPAGNE Not Available Start: 05-12-2023 End: 05-12-2023 Patient encounter procedure Sha Vallejo [facility] Start: 05-04-2023 Orders Only Jena Hicks MD Work Phone: [facility] Comment on above: 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); Bilateral carotid artery stenosis; Other disorders of arteries, arterioles and capillaries in diseases classified elsewhere (HCC) Start: 05-03-2023 End: 05-03-2023 ambulatory JENA HICKS Facility:[facility] Start: 05-03-2023 End: 05-03-2023 Office outpatient visit 25 minutes Jena Hicks MD Work Phone: [facility] Comment on above: 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) Start: 04-26-2023 Orders Only Jena Hicks MD Work Phone: [facility] Comment on above: Chest pain, unspecif ied type (Primary Dx) Start: 04-25-2023 Telephone encounter No Pcp [employer] Comment on above: Appointment Start: 04-22-2023 Telephone encounter No One (Historic al) Referring Physician Comment on above: External Referrals/r esources Start: 03-23-2023 End: 03-23-2023 Patient encounter procedure Sha Vallejo [facility] Start: 01-20-2023 End: 01-20-2023 Patient encounter procedure Sha Vallejo [facility] Start: 09-24-2022 End: 09-24-2022 Patient encounter procedure Dayron Jorgensen [facility] Start: 09-06-2022 End: 09-06-2022 Patient encounter procedure Dayron Jorgensen [facility] Start: 08-02-2022 End: 08-03-[address] MARCK TATE . Facility:[facility] Start: 07-28-2022 End: 07-28-[address] MARCK TATE . Facility:[facility] Start: 07-14-2022 End: 07-15-[address] MARCK TATE . Facility:[facility] Start: 04-30-2022 End: 05-01-[address] MARCK TATE . Facility:[facility] Start: 02-16-2022 End: 02-17-[address] MARCK TATE . Facility: Start: 06-17-2017 End: 06-18-2017 Ambulatory DEFAULT PHYSICIAN Facility:[facility] Plan of Treatment Date Care Activity Detail Author Start: 07-04-2029 Urine microalbumin profile DTaP,Tdap,Td Vaccine (2 - Td or Tdap) [facility] Start: 08-15-2024 End: 08-15-2024 Patient encounter procedure 08/15/2024 1:50 PM EDT Office Visit [facility] [address] [place] [address] Timo Champagne, [address], [place] [address] Arrived [facility] Comment on above: Arrived Start: 08-07-2024 End: 08-07-2024 Professional / ancillary services management 08/07/2024 2:30 PM EDT Ancillary Procedure [facility] [address] [place] [address] [facility] Start: 07-17-2024 End: 07-17-2024 Patient encounter procedure 07/17/2024 2:40 PM EST Office Visit [facility] [address] [place] [address] Timo Champagne, DO [address] [place] [address] [place] [address] Arrived [facility] Comment on above: Arrived Start: 07-17-2024 End: 07-17-2025 US Pelvis US Pelvis w/ TV Imaging Routine Cyst of left ovary Expected: 07/17/2024, Expires: 07/17/2025 [facility] Work Phone: Comment on above: Expected: 07/17/2024 , Expires: 07/17/2025 Start: 01-22-2024 Influenza vaccination Influenza Vacc ine (#1) [facility] Start: 01-21-2023 Influenza vaccination Influenza Vacc ine (#1) [facility] Start: 05-23-2022 Advance Directive Discussion Advance Directive Discussion [facility] Start: 05-23-2022 Depression Assessment Depression Ass essment [facility] Start: 03-23-2018 Pneumococcal Vaccine : 65+ Years (2 of 2 - PPSV23 or PCV20) Pneumococcal Vaccine: 65+ Years (2 of 2 - PPSV23 or PCV20) [facility] Start: 05-18-2017 Pneumococcal Vaccine : 65+ (2 - PPSV23 or PCV20) Pneumococcal Vaccine: 65+ (2 - PPSV23 or PCV20) [facility] Start: 2006 Bone Density Screening Bone Density Screening [facility] Start: 2006 Pneumococcal Vaccine : 65+ (1 - PCV) Pneumococcal Vaccine: 65+ (1 - PCV) [facility] Start: 2006 Screening for osteoporosis Bone Density Screening [facility] Start: 2001 RSV Vaccine (1 - 1-d ose 60+ series) RSV Vaccine (1 - 1-dose 60+ series) [facility] Start: 1991 Shingrix Vaccine (1 of 2) Shingrix Vaccine (1 of 2) [facility] Start: 1986 Diabetes Screening Diabetes Screenin g [facility] Start: 1940 Covid-19 Vaccine (#1) Covid-19 Vacci ne (#1) [facility] End: 05-25-2024 Ct angio abd&plvis cntrst mtrl w/wo cntrst img CTA ABD/PEL WO/W IVCON Radiology Routine Chest pain, unspecified type 1 Occurrences starting 04/26/2023 until 05/25/2024 [facility] Work Phone: Comment on above: 1 Occurrences starti ng 04/26/2023 until 05/25/2024 End: 06-02-2024 Ct angio abd&plvis cntrst mtrl w/wo cntrst img CTA ABD/PEL WO/W IVCON Radiology Routine 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 Occurrences starting 05/04/2023 until 06/02/2024 [facility] Work Phone: Comment on above: 1 Occurrences starti ng 05/04/2023 until 06/02/2024 End: 05-25-2024 Ct angiography chest w/contrast/noncontrast CTA CHEST (NONGATED) WO/W IVCON Radiology Routine Chest pain, unspecified type 1 Occurrences starting 04/26/2023 until 05/25/2024 [facility] Work Phone: Comment on above: 1 Occurrences starti ng 04/26/2023 until 05/25/2024 End: 06-02-2024 Ct angiography chest w/contrast/noncontrast CTA CHEST (NONGATED) WO/W IVCON Radiology Routine 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 Occurrences starting 05/04/2023 until 06/02/2024 [facility] Work Phone: Comment on above: 1 Occurrences starti ng 05/04/2023 until 06/02/2024 End: 05-04-2024 PVR ANK/HILL/TOE AWAIS VAS LAB PVR ANK/HILL/TOE AWAIS VAS LAB Vascular Lab Routine 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) Other disorders of arteries, arterioles and capillaries in diseases classified elsewhere (HCC) 1 Occurrences starting 05/04/2023 until 05/04/2024 [facility] Work Phone: Comment on above: 1 Occurrences starti ng 05/04/2023 until 05/04/2024 End: 05-04-2024 US CAROTID ARTERIES AWAIS VAS LAB US CAROTID ARTERIES AWAIS [facility]AS LAB Vascular Lab Routine Bilateral carotid artery stenosis 1 Occurrences starting 05/04/2023 until 05/04/2024 [facility] Work Phone: Comment on above: 1 Occurrences starti ng 05/04/2023 until 05/04/2024 [facility] Immunizations Immunization Date Immunization Notes Care Provider Kay bennett 01-20-2024 tetanus toxoid, redu gene diphtheria toxoid, and acellular pertussis vaccine, adsorbed Jus Magdalene [facility] 04-26-2023 influenza virus vaccine, unspecified formulation Timo Champagne DO Work Phone: [facility] 12-16-2021 SARS-CoV-2 mRNA (frdyogvysvt-lwfz-bhpbg se) vaccine Jus Magdalene [facility] Comment on above: Result Comment: 2024: [id number] 04-07-2021 SARS-CoV-2 (COVID-19 ) mRNA BNT-162b2 vax Jus Magdalene [facility] Comment on above: Result Comment: 2024: [id number] 09-29-2020 SARS-CoV-2 (COVID-19 ) mRNA BNT-162b2 vax Jus Magdalene [facility] 09-08-2020 SARS-CoV-2 (COVID-19 ) mRNA BNT-162b2 vax Jus Magdalene [facility] 04-23-2020 influenza virus vaccine, unspecified formulation Jus Magdalene [facility] 07-04-2019 tetanus toxoid, redu gene diphtheria toxoid, and acellular pertussis vaccine, adsorbed Jus Magdalene [facility] 03-23-2017 pneumococcal conjuga te vaccine, 13 valent Jus Magdalene [facility] 03-06-2017 influenza virus vaccine, unspecified formulation Jus DelC astillo [facility] Payers Date Payer Category Payer [employer] [place] [employer] others) [id number] 2018 [employer] ( and others) [id number] 2006 Medicare [id number] 1998 () [id number] 1959 [employer] ( and others) [id number] 1959 Medicare [id number] 1940 Unknown [id number] 2.840.1.145760.3.579. 2.593 1941 Unknown [id number] 2.16840.1.797740.3.579. 2.593 1941 Unknown [id number] 2.16.840.1.009554.3.579. 2.593 1941 Unknown [id number] 2.16.840.1.933456.3.579. 2.593 1941 Unknown [id number] 2.16.840.1.790423.3.579. 2.593 1941 Unknown [id number] 2.16.840.1.158466.3.579. 2.1259 1941 Unknown [id number] 2.16.840.1.761252.3.579. 2.1259 1941 Unknown [id number] 2.16.840.1.626445.3.579. 2.1259 1941 Unknown [id number] 2.16.840.1.799729.3.579. 2.1259 1941 Unknown [id number] 2.16.840.1.225039.3.579. 2.727 1941 Unknown [id number] 2.16.840.1.027460.3.579. 2.727 1941 Unknown [id number] 2.16.840.1.203853.3.579. 2.727 1941 Unknown [id number] 2.16.840.1.662078.3.579. 2.727 1941 Unknown [id number] 2.16.840.1.221915.3.579. 2.727 Unknown Social History Date Type Detail Facility Start: 09-06-2022 End: 09-28-2024 Tobacco smoking status Heavy tobacco smoker (finding) [facility] Start: 05-03-2023 Sex Assigned At Female F [facility] Start: 1940 Sex Assigned At Not on file [facility] Start: 05-23-1956 Tobacco smoking stat [facility] Smokes tobacco daily [facility] Start: 05-23-1956 History of tobacco use Cigarette Smo ker [facility] Start: 05-03-2023 Cigarettes smoked current (pack per day) - Reported 1.5 [facility] Start: 05-03-2023 Tobacco use and exposure Smoke less tobacco non-user [facility] Start: 05-03-2023 Alcohol intake Current drinke r of alcohol (finding) [facility] National Score (1-10 0), lower number is lower risk 87 [facility] Start: 05-03-2023 Alcohol Comment [facility] O[facility] Start: 08-17-2022 Sex Female (finding) [facility] Functional Status Date Assessment Result Facility 09-28-2024 Functional Status N/A [facility] 12-16-2023 Functional Status N/A [facility] 05-12-2023 Functional Status N/A [facility] 09-06-2022 Functional Status No [facility] Clinical Notes 03-22-2023 to 08-15-2024 Patrizia Wells LPN - 08/15/2024 1:50 PM Christina Wells LPN - 07/17/2024 2:40 PM Jena Miller MD - 05/03/2023 12:42 PM ESTTelephone Encounter - Med Quiros - 04/25/2023 4:18 PM EST Note [...] nursing note reviewed. Exam conducted with a material disposition inspector present. Vitals: Estimated body mass index is [...] by Patrizia Wells LPN on behalf of: DO Annelise Reddyally signed by Patrizia Wells LPN at 08/19/2024 12:06 PM EDT documented in this encounter [facility] 07-17-2024 History of Present illness Narrative Reason [...] nursing note reviewed. Exam conducted with a material disposition inspector present. 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 [facility] 01-09-2024 Note [facility] Note Reason for cardiology consult: Dyspnea on exertion, prior history of CAD Chief Complaint: Dyspnea on exertion HPI: Beth Starkey is a 83 y.o. 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 [facility] 05-26-2023 Note [facility] Out[facility] BETH STARKEY ([id number]) 1940 F Date Time Provider Department 05/26/23 [...] and brochure sent Lung Nodule Program Location: [place] [facility] As of Date: 05/26/2023 (No Known [...] Status:Closed by EVANGELINA BURNETT on 05/26/23 [facility] 05-26-2023 Note HNO ID: [id number] Author: ?, ?, ? Service: ? Author [...] and brochure sent Lung Nodule Program Location: [facility] 05-18-2023 Note Patient Outreach ([facility]) BETH STARKEY ([id number]) 1940 F Date Time Provider Department 05/18/23 SOFIA BELLO [facility] During your visit today, we recorded the following information about you: Sofia Bello, FURNITURE ASSEMBLER AND INSTALLER.[facility] 05/18/2023 11:12 AM Signed Incidental Lung Nodule Enrollment Outreach attempt: 1st Attempt Outreach status: Complete Enrolled in Lung Nodule program: Referred Lung Nodule outreach: No outreach - Very small nodule, letter and brochure sent Lung Nodule Program Location: [place] [facility] As of Date: 05/18/2023 (No Known [...] 05/18/2023 (None) Letter Text Encounter Status:Closed by SOFIA BELLO on 05/18/23 [facility] 05-18-2023 Note HNO ID: [id number] Author: Sofia Bello, CHELSEA.AUTOMATIC GRINDER OPERATOR Service: ? Author Type: Nurse Practitioner Type: Progress Notes Filed: 05/18/2023 11:12 AM Note Text: Incidental Lung Nodule Enrollment Outreach attempt: 1st Attempt Outreach status: Complete Enrolled in Lung Nodule program: Referred Lung Nodule outreach: No outreach - Very small nodule, letter and brochure sent Lung Nodule Program Location: [facility] 05-03-2023 Note HNO ID: [id number] Author: Nadine Cummins RN Service: Radiology Author [...] May 03, 2023 TIME: 1:00 PM [facility] 05-03-2023 Note HNO ID: [id number] Author: Kandy Aragon RT(R) Service: Radiology Author [...] Tess(R) May 03, 2023 1:19 PM [facility] 05-03-2023 History and physical note Heart , Vascular and Thoracic [place] DEPARTMENT OF VASCULAR SURGERY OUTPATIENT VISIT DATE [...] 4 - Moderate documented in this encounter [facility] 04-25-2023 Miscellaneous Notes Reason for call: Ms Starkey called,and she would like to schedule an appointment with vascular surgery Referred by Dr Judit [facility] and cell number: [phone] Diagnosis: AAA Kind Regards Med documented in this encounter [facility] 04-22-2023 Miscellaneous Notes Patient: Beth Starkey Date of : 1940 Patient phone number: [phone] Referring Provider for the encounter: Marck Tate MD Requesting Provider: N/A Reason for requesting visit (RFV/signs and symptoms/diagnosis): Sent Telephone Encounter - updated tracking. Person calling: caregiver: Patrizia Return call to: self Medical Records/Insurance Card scanned into Epic: Yes Comments: N/A documented in this encounter [facility] 03-23-2023 Evaluation + Plan note Diagnostic Tests PendingCreatinine 03/23/23 Future Scheduled TestsCTA Abd Aorto-bilat/ iliofemoral runoff 03/22/23 [facility] 03-22-2023 Evaluation + Plan note Future Scheduled TestsCTA Abd Aorto-bilat/ iliofemoral runoff 03/22/23 [facility] Evaluation + Plan note Future Appointments Appointment Date:10/11/2022 10:00:00 AM Scheduled Provider:Dayron Jorgensen MD Location[facility] Appointment Type:Vascular Follow Up ([facility]) Future Scheduled TestsCTA Abdomen and Pelvis 09/06/22CTA Chest 09/06/22 [facility] Evaluation + Plan note Future Appointments Appointment Date:10/11/2022 10:00:00 AM Scheduled Provider:Dayron Jorgensen [facility] Follow Up ([facility]) [facility] Evaluation + Plan note Future Scheduled TestsCTA Abd Aorto-bilat/ iliofemoral runoff 03/22/23 [facility] Evaluation + Plan note Future Appointments Appointment Date:06/18/2024 09:45:00 AM Scheduled Provider:Tam Vallejo MD [facility] Type:Cardiology Follow Up ([facility]) Future Scheduled TestsCTA Abd Aorto-bilat/ iliofemoral runoff 03/22/23 [facility] Evaluation + Plan note Future Appointments Appointment Date:07/20/2024 10:00:00 AM Scheduled Provider:Tam Vallejo [facility] Type:Cardiology Follow Up ([facility]) Future Scheduled TestsLipid Panel 12/19/23NM Myocardial Spect Rest/Stress 1 Day 12/21/23Echo Transthoracic Complete 12/21/23CTA Abd Aorto-bilat/ iliofemoral runoff 03/22/23 [facility] Evaluation + Plan note Future Appointments Appointment Date:12/07/2024 03:00:00 PM Scheduled Provider:Jus Del Castillo MD [facility] Appointment Type:Cardiology Follow Up ([facility]) Future Scheduled TestsLipid Panel 07/24/24NM Myocardial Spect Rest/Stress 1 Day 12/21/23Echo Transthoracic Complete 12/21/23CTA Abd Aorto-bilat/ iliofemoral runoff 09/17/24 [facility] Evaluation note Diagnosis Chest pain, unspecified type- Primary [facility] Diagnosis 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 [facility] Diagnosis 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 Bilateral carotid artery stenosis Occlusion and stenosis of carotid artery without mention of cerebral infarction Other disorders of arteries, arterioles and capillaries in diseases classified elsewhere ([facility]) [facility] this encounter [facility]* Diagnosis Cyst of left ovary Other and unspecified ovarian cyst documented in this encounter [facility]* Diagnosis Encounter to discuss test results Other specified counseling Cyst of left ovary Other and unspecified ovarian cyst documented in this encounter [facility] Healthcare[facility] course Narrative No data available for this section [facility] No data available for this section [facility] No data available for this section [facility] (narrative)* Outpatient Procedure (Routine) - Authorized Specialty Diagnoses / Procedures Referred By Manjula t Referred To Contact [facility] [place] Diagnoses 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) Other disorders of arteries, arterioles and capillaries in diseases classified elsewhere ([facility]) Procedures PVR ANK/HILL/TOE AWAIS VAS LAB NON-INVAS PHYSIOLOGIC STD EXTREMITY ART 2 LEVEL Jena Hicks MD [address] [place] [address] [facility] [place] [address] [place] [address] Referral ID Status Reason Start Date Expiration Date Visits Requested Visits Authorized [id number] Authorized Auto-Generat ed Referral 3 05/03/2024 1 1 * MRI/CT (Routine) - Authorized Specialty Diagnoses / Procedures Referred By Marcac t Referred To Contact CT IMAGING Diagnoses 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) Procedures CTA ABD/PEL WO/W IVCON CT ANGIO ABD&PLVIS CNTRST MTRL W/WO CNTRST Jena Todd MD [address] [place] [address] Ct Imaging [place] [address] Referral ID Status Reason Start Date Expiration Date Visits Requested Visits Authorized [id number] Authorized Auto-Generat ed Referral 3 06/02/2024 1 1 * MRI/CT (Routine) - Authorized Specialty Diagnoses / Procedures Referred By Manjula t Referred To Contact CT IMAGING Diagnoses 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 Diagnoses Bilateral carotid artery stenosis Procedures US CAROTID ARTERIES AWAIS VAS LAB DUPLEX SCAN EXTRACRANIAL [place] [address] [place] [address] [facility] [place] [address] [place] [address] Referral ID Status Reason Start Date Expiration Date Visits Requested Visits Authorized [id number] Authorized Auto-Generat ed Referral 12/1305/03/2024 1 1 [facility] Summary Purpose Family History No Family History [...] CT ANGIO ABD&PLVIS CNTRST MTRL W/[facility] Hicks MD [address] [place] [address] [address] [facility] [place] [address] Referral ID Status Reason Start Date Expiration Date Visits Requested Visits Authorized [id number] Authorized Auto-Generat ed Referral 04/26/2023 05/25/2024 1 1 Specialty Diagnoses / Procedures Referred By Contac t Referred To Contact CT IMAGING Diagnoses Chest pain, unspecified type Procedures CTA CHEST (NONGATED) WO/W IVCON CT ANGIOGRAPHY CHEST W/CONTRAST/NONCONTRAST Jena Hicks MD [address] [place] [address] [facility] [place] [address] Referral ID Status Reason Start Date Expiration Date Visits Requested Visits Authorized [id number] Authorized Auto-Generat ed Referral 04/26/2023 05/25/2024 1 1 Additional Source Comments INFORMATION SOURCE (unrecogn ized section and content) DATE CREATED AUTHOR 11/14/2017 [facility] DATE CREATED AUTHOR AUTHOR'S ORGANIZ ATION 08/09/2022 [facility] DATE CREATED AUTHOR AUTHOR'S ORGANIZ ATION 05/27/2023 [facility] DATE CREATED AUTHOR AUTHOR'S ORGANIZ ATION 01/22/2024 [facility] DATE CREATED AUTHOR AUTHOR'S ORGANIZ ATION 08/16/2024 [facility] EPIC DATE CREATED AUTHOR AUTHOR'S ORGANIZ ATION 12/11/2024 [facility] Patient Care team informatio n (unrecognized section and content) 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 [place] [address] Family Medicine 04/22/23 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 [place] [address] Family Medicine 04/22/23 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 [place] [address] Family Medicine 04/22/23 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 [place] [address] Family Medicine 04/22/23 Die Cast Operator Relationship Specialty Start Date End Date Marck Tate MD [address] [facility] [place] [address] PCP - General Family Medicine 05/30/23 Die Cast Operator Relationship Specialty Start Date End Date Marck Tate MD [address] [facility] [place] [address] PCP - General Family Medicine 05/30/23 Die Cast Operator Relationship Specialty Start Date End Date Marck Tate MD [address] [place] [address] PCP - General Family Medicine 05/30/23 Die Cast Operator Relationship Specialty Start Date End Date Marck Tate MD [address] [place] [address] PCP - General Family Medicine 05/30/23 Source Comments (unrecognize d section and content) In the event this informatio n is protected by the Federal Confidentiality of Alcohol and Drug Abuse Patient Records regulations: The Federal rules restrict any use of the information to criminally investigate or prosecute any alcohol or drug abuse patient.[facility] Hospital[facility] the event this information is protected by the Federal Confidentiality of Alcohol and Drug Abuse Patient Records regulations: The Federal rules restrict any use of the information to criminally investigate or prosecute any alcohol or drug abuse patient.[facility] HospitalIn the event this information is protected by the Federal Confidentiality of Alcohol and Drug Abuse Patient Records regulations: The Federal rules restrict any use of the information to criminally investigate or prosecute any alcohol or drug abuse patient.[facility] HospitalIn the event this information is protected by the Federal Confidentiality of Alcohol and Drug Abuse Patient Records regulations: The Federal rules restrict any use of the information to criminally investigate or prosecute any alcohol or drug abuse patient.[facility] HospitalIn the event this information is protected by the Federal Confidentiality of Alcohol and Drug Abuse Patient Records regulations: The Federal rules restrict any use of the information to criminally investigate or prosecute any alcohol or drug abuse patient.[facility] Reason for Visit (unrecogniz ed section [...] BE BASED ON THE PRIMARY CLINICAL RECORDS. [facility] [employer] [facility] provides no warranty or guarantee of the accuracy or completeness of information in this document.
[2025-01-25 16:37] LABS: Alanine Aminotransferase 30 U/L (14-59); Albumin Globulin Ratio 0.9; Albumin Level 3.8 g/dL (3.4-5.0); Alkaline Phosphatase 134 U/L (46-116); Anion Gap 11.7; Aspartate Amino Transferase 13 U/L (15-37); Blood Urea Nitrogen 34.0 mg/dL (7.0-18.0); Calcium 9.6 mg/dL (8.5-10.1); Carbon Dioxide 28.8 mmol/L (21.0-32.0); Chloride 107 mmol/L (98-107); Estimated GFR (African America 55 (>=60 mL/min/1.73m^2); Estimated GFR (Non-African Ame 46 (>=60 mL/min/1.73m^2); Globulin 4.1 g/dL; Glucose 142 mg/dL (74-106); Potassium 5.5 mmol/L (3.5-5.1); Sodium 142 mmol/L (136-145); Total Protein 7.9 g/dL (6.4-8.2)
== END 2025-01-25 15:37 | disposition home or self-care (01) ==
LOC: LAB 15:41
PROVIDERS: PCP Family Medicine; Visit Provider Family Medicine
DX: E11.9 Type 2 diabetes mellitus without complications (principal)
CPT/HCPCS: 36415; 80053; 83036

== ENCOUNTER 2025-01-30 07:42 | Outpatient (OUT) | payer MEDICARE, OTHER, SELFPAY ==
--- OUTSIDE RECORDS SUMMARY | 2025-01-30 07:46 | XMS_ITS | CCD ---
Author Organization [facility] Care Team Providers Care Portable Router Operator Name Role Phone PHYSICIAN, DEFAULT Unavailable Unavailable PHYSICIAN, DEFAULT Unavailable Unavailable MARCK TATE Unavailable Unavailable HOY ., DR ACHARYA Admitting Unavailable HOY ., DR ACHARYA Attending Unavailable HOY ., DR ACHARYA Primary Care Unavailable HOY ., DR ACHARYA Consulting Unavailable DALL[place], DR SANDOVAL Ferguson Consulting Unavailable HOY ., [...] DR ACHARYA Consulting Unavailable HOY ., DR ACHRAYA Admitting Unavailable HOY ., DR ACHARYA Attending Unavailable HOY ., DR ACHARYA Primary Care Unavailable LAKESHIAY ., DR ACHARYA Consulting Unavailable Marck Tate Primary Care Physician Marck Tate MD Unavailable JENA HICKS Referring Unavailable JENA HICKS Attending Unavailable CALE HOPE Attending Unavailable CALE HOPE Attending Unavailable Marck Tate MD Primary Care Provider [phone] TIMO CHAMPAGNE Attending Unavailable TIMO CHAMPAGNE Referring [...] Allergies] Propensity to adverse reactions (disorder) [facility] Repository Medications Current Medications Medication Drug Class(es) Dates Sig (Normalized) Sig (Original) amLODIPine 2.5 mg oral tablet (12 sources) Dihydropyridine Calcium Channel Yessica Start: 07-20-2024 take 1 tablet by mouth once daily Norvasc 2.5 mg Tab 2.5 mg = 1 tab(s), Oral, Daily, # 90 tab(s), Refills(s) 0, Pharmacy: [id number], 152, cm, 07/20/24 10:08:00 EST, Height/Length Dosing, [...] Daily, # 30 tab(s), Refills(s) 6, [id number], 152, cm, 12/16/23 15:27:00 EDT, Height/Length Dosing, 69.1, kg, 12/16/23 15:27:00 EDT, Weight Dosing Start Date: 12/19/23 Status: Ordered Quantity: 30.0 Unit: tab(s) Repeat number: 7 calcium carbonate (Tums) 250 mg ([place] 100 mg) chewable split tablet (6 sources) calcium carbonat e (Tums) 250 mg ([place] 100 mg) chewable split tablet Take 500 [...] Daily, # 90 tab(s), Refills(s) 0, Pharmacy: [id number], 152, cm, 07/20/24 10:08:00 EST, Height/Length Dosing, [...] Daily, # 30 tab(s), Refills(s) 6, [facility]: [id number], 152, cm, 12/16/23 15:27:00 EDT, Height/Length Dosing, 69.1, kg, 12/16/23 15:27:00 EDT, Weight Dosing Start Date: 12/19/23 Status: Ordered Quantity: 30.0 Unit: tab(s) Repeat number: 7 Start: 12-16-2023 take 1 tablet by caty th once daily metoprolol succinate 25 mg ER Tab 25 mg = 1 tab(s), Oral, Daily, # 30 tab(s), Refills(s) 6, Pharmacy: [facility] #[id number], 152, cm, 12/16/23 15:27:00 EDT, Height/Length Dosing, [...] disease (7 sources) Atherosclerotic heart disease of [place] coronary artery without angina pectoris; Translations: [Coronary [...] as patient had to be rescheduled from [place]. At last visit, patient saw Dr. Vallejo [...] -see outside records Assessment/Plan 1. CAD in [place] artery (I25.10: Atherosclerotic heart disease of [place] coronary artery without angina pectoris) The patient has history of CAD with prior PCI. She also had a recent stress test that was positive and considered high risk due to large reversible defect. However, patient refused heart cath when proposed by Dr. Vallejo last month last month. Again asked (more content not included)... Normal [facility] Comment on above: Result Comment: Elec [...] as patient had to be rescheduled from [place]. At last visit, patient saw Dr. Vallejo [...] -see outside records Assessment/Plan 1. CAD in [place] artery (I25.10: Atherosclerotic heart disease of [place] coronary artery without angina pectoris) The patient [...] with voice recognition artificial intelligence software, specifically ImmusanT, Datavolution and or Viscose Closures. Substitutions may have occurred due to the inherent limitations of voice recognition and artificial intelligence software. Follow-up No qualifying data available Problem List/Past Medical History Ongoing AAA (abdominal aortic aneurysm) CAD in [place] artery HTN (hypertension) Historical No qualifying data [...] mg= 1 (more content not included)... Normal [facility] Comment on above: Result Comment: Elec [...] II, MD, PHD at 09-Aug-2024 08:45:09 AM [facility] Normal Not Available Comment on above: [...] as indicated. [1] Assessment/Plan 1. CAD in [place] artery (I25.10: Atherosclerotic heart disease of [place] coronary artery without angina pectoris) Exertional dyspnea [...] A PONCE (more content not included)... Normal [facility] Comment on above: Result Comment: Elec tronically Signed By: Genevieve CURRIE, Tam Spain\.br\Date and Time Signed: 07/20/24 10:27 EST Office Visiton 01-20-2024 Follow-up visit [id number] Beth Starkey 1940 F Date Provider Department Center 01/20/2024 [id number]-KTSSLECALE HOPE MONSE Delgado [facility] Family History Problem Relation Age of Onset Heart attack Father Diabetes Sister Coronary artery disease Brother Aneurysm Brother Diabetes Brother Family Status - Relation Status Age at Father Sister Brother Level of Service:41716 [place] OFFICE/OUTPATIENT ESTABLISHED MOD MDM 30 MIN Reason for Visit and Comments: Hyperlipidemia [182] Hypertension [384585] - Pt had a abnormal stress. Patient used the restroom in the ED right before apt and had a fall. She denies lightheadedness/dizz iness and syncope. She denies hiting her head. Shortness of Breath [412125] Normal [facility] Office Visiton 01-09-2024 Follow-up visit [id number] Beth Starkey 1940 F Date Provider Department Center 01/09/2024 [id number], SAMDANNIELLE MONSE [facility] Family History Problem Relation Age of Onset Heart attack Father Diabetes Sister Coronary artery disease Brother Aneurysm Brother Diabetes Brother Family Status - Relation Status Age at Father Sister Brother Level of Service:96047 [place] OFFICE/OUTPATIENT NEW MODERATE MDM 45 MINUTES Reason for Visit and Comments: New Patient [632] - Pt complains of sob. Normal [facility] Heart and Vascular Office/Cl inic [...] aneurysm, without rupture, unspecified) 2. CAD in [place] artery (I25.10: Atherosclerotic heart disease of [place] coronary artery without angina pectoris) 3. HTN [...] Edinson Kuhn 09/24/2022 10:55 EDT Normal [facility] Comment on above: Result Comment: Elec tronically Signed By: Genevieve CURRIE, Tam Spain\.ede\Date and Time Signed: 12/16/23 15:48 EDT REILLYon 05-03-2023 CNDANIEL Office Visit (YURI) BETH STARKEY ([id number]) 1940 F Date Time Provider Department 05/03/23 12:00 PM JENA HICKS During your visit today, we recorded the following information about you: Temperature Pulse Respiration Blood pressure 98.3 degrees 86/minute 16/minute 103/59 Weight Height 65.8 kg 1.524 m Jena Hicks MD 05/03/2023 3:31 PM Signed [facility] [place] DEPARTMENT OF VASCULAR SURGERY OUTPATIENT VISIT DATE [...] PHYSICAL E (more content not included)... Normal [facility] CTA ABD/PELV WO/W IVCONon CTA ABD/PELV WO/W IVCON * * *Final Report* * * DATE OF EXAM: May 03 2023 1:27PM [facility] 0467 - CTA ABD/PELV WO/W IVCON / [...] stable BONES: degenerative changes of the spine Design Engineering Manager (topogram) images: No additional findings. IMPRESSION: [...] (more content not included)... Invalid Interpretation Code [facility] CTA CHEST (NONGATED) WO/W IV CONon 05-03-2023 CTA CHEST (NONGATED) WO/W IVCON * * *Final Report* * * DATE OF EXAM: May 03 2023 1:27PM [facility] 0124 - CTA CHEST (NONGATED) WO/W IVCON [...] stable BONES: degenerative changes of the spine Design Engineering Manager (topogram) images: No additional findings. IMPRESSION: [...] (more content not included)... Invalid Interpretation Code [facility] HISTORY PHYSICALon HISTORY PHYSICAL HNO ID: [id number] Author: Jena Hicks MD Service: ? Author Type: Physician Type: HANDP Filed: 05/03/2023 3:31 PM Note Text: [facility] [place] DEPARTMENT OF VASCULAR SURGERY OUTPATIENT VISIT DATE [...] EOM, pupils (more content not included)... Normal [facility] 04-25-2023 [place] Telephone (PODCCP) BETH STARKEY ([id number]) 1940 F Date Time Provider Department 04/25/23 NO PCP PODCCP During your visit today, we recorded the following information about you: Med Quiros 04/25/2023 4:23 PM Signed Reason for call: Ms Starkey called,and she would like to schedule an appointment with vascular surgery Referred by Dr Judit [facility] and cell number: [phone] Diagnosis: AAA Kind Regards Med Allergies As of Date: 04/25/2023 (Not on File) Date Reviewed: Never Reviewed Reason for Visit: Appointment [186] Problem List As Of Date: 04/25/2023 (None) Encounter Status:Closed by MED QUIROS on 04/25/23 [facility] 04-22[facility]2023 [facility]REFPHY[facility] BETH STARKEY ([id number]) 1940 F Date Time Provider Department 04/22/23 NO ONE (HISTORICAL) REFPHY During your visit today, we recorded the following information about you: Patrizia Orozco 04/22/2023 10:06 AM Signed Patient: Beth Starkey Date of : 1940 Patient phone number: [phone] Referring Provider for the encounter: Marck Tate [...] Status:Closed by PATRIZIA OROZCO on 04/22/23 Normal [facility] CHEMISTRYOrdered By: SYSTEM SYSTEM on 09-24-2022 Creatinine [Mass/Vol] 0.8 mg/dL Normal 0.5 - 1.3 mg/dL [facility] Remisol GFR/1.73 sq M.predicted among non-blacks MDRD (S/P/Bld) [Vol rate/Area] 74 mL/min/1.73 m2 Normal >=59mL/min/1. 73 m2 [facility] Chem S CT CHEST WO [...] KAYY KAUR Date: 2022-08-02 10:52 Normal [facility] C. DIFF PCRon 07-28-2022 C. DIFFICILE PCR Negative Normal NEGATIVE [facility] Comment on above: Performed By: #### C DIFPOC #### [facility] [address] [place] [address] Dr. Spencer Braun OCC BLD IMMUNO SCREENon OCCULT BLOOD Negative Normal NEGATIVE [facility] Comment on above: Performed By: #### C BC #### [facility] [address] [place] [address] Dr. Spencer Braun INSULINon 07-15-2022 Insulin 17.7 uIU/mL Normal 2.6-24.9 [facility] Comment on above: Performed By: #### I NSULIN ####[facility] [address] [place] [address]Dr. Spencer Braun BNPon 07-14-2022 Natriuretic peptide B (Bld) [Mass/Vol] 197.0 pg/mL Normal <=1,800.0 [facility] Comment on above: Performed By: #### B RETAIL SALESMAN, LIPID, CMP, T7, TSH #### [facility] [address] [address] [address] Spencer Braun CBC AUTO DIFFon 07-14-2022 BASO # 0.1 103/ul Normal 0.0-0.1 [facility] Comment on above: Performed By: #### C BC #### [facility] [address] [place] [address] Dr. Spencer Braun Basophils/100 WBC (Bld) 0.9 % Normal 0.2-2.0 [facility] Comment on above: Performed By: #### C BC #### [facility] [address] [place] [address] Dr. Spencer Braun EO # 0.2 103/ul Normal 0.0-0.[address] [facility] Comment on above: Performed By: #### C BC #### [facility] [address] [place] [address] Dr. Spencer Braun Eosinophils/100 WBC (Bld) 2.5 % Normal 0.9-7.[address] [facility] Comment on above: Performed By: #### C BC #### [facility] [address] [place] [address] Dr. Spencer Braun Erythrocyte distribution width (RBC) [Ratio] 13.8 % Normal 11.0-15.[address] [facility] Comment on above: Performed By: #### C BC #### [facility] [address] [place] [address] Dr. Spencer Braun Hematocrit (Bld) [Volume fraction] 45.1 % Normal 36.0-48.[address] [facility] Comment on above: Performed By: #### C BC #### [facility] [address] [place] [address] Dr. Spencer Braun Hemoglobin (Bld) [Mass/Vol] 14.7 g/dL Normal 12.0-16.[address] [facility] Comment on above: Performed By: #### C BC #### [facility] [address] [place] [address] Dr. Spencer Braun IG # 0.04 10e3/ul Critically high 0.00-0.03 [facility] Comment on above: Performed By: #### C BC #### [facility] [address] [place] [address] Dr. Spencer Braun IG % 0.5 % Normal 0.0-0.[address] [facility] Comment on above: Performed By: #### C BC #### [facility] [address] [place] [address] Dr. Spencer Braun LYMPH # 1.6 103/ul Normal 1.2-3.8 [facility] Comment on above: Performed By: #### C BC #### [facility] [address] [place] [address] Dr. Spencer Braun Lymphocytes/100 WBC (Bld) 20.4 % Critically low 20.5-60.[address] [facility] Comment on above: Performed By: #### C BC #### [facility] [address] [place] [address] Dr. Spencer Braun MANUAL DIFF REQ NO Normal [facility] Comment on above: Performed By: #### C BC #### [facility] [address] [place] [address] Dr. Spencer Braun MCH (RBC) [Entitic mass] 28.8 pg Normal 26.7-34.0 [facility] Comment on above: Performed By: #### C BC #### [facility] [address] [place] [address] Dr. Spencer Braun MCHC (RBC) [Mass/Vol] 32.6 g/dL Normal 29.9-35.2 [facility] Comment on above: Performed By: #### C BC #### [facility] [address] [place] [address] Dr. Spencer Braun MCV (RBC) [Entitic vol] 88.3 fL Normal 81.0-99.0 [facility] Comment on above: Performed By: #### C BC #### [facility] [address] [place] [address] Dr. Spencer Braun MONO # 0.5 103/ul Normal 0.3-0.8 [facility] Comment on above: Performed By: #### C BC #### [facility] [address] [place] [address] Dr. Spencer Braun Monocytes/100 WBC (Bld) 6.5 % Normal 1.7-12.0 [facility] Comment on above: Performed By: #### C BC #### [facility] [address] [place] [address] Dr. Spencer Braun NEUT # 5.4 103/ul Normal 1.4-6.5 [facility] Comment on above: Performed By: #### C BC #### [facility] [address] [address] [address] Spencer Braun Neutrophils/100 WBC (Bld) 69.2 % Normal 43.0-75.0 [facility] Comment on above: Performed By: #### C BC #### [facility] [address] [address] [address] Spencer Braun Platelet mean volume (Bld) [Entitic vol] 9.1 fL Critically low 9.5-13.5 [facility] Comment on above: Performed By: #### C BC #### [facility] [address] [address] [address] Spencer Braun PLT 190 103/ul Normal 150-450 [facility] Comment on above: Performed By: #### C BC #### [facility] [address] [place] [address] Dr. Spencer Braun RBC 5.11 106/ul Normal 4.20-5.40 [facility] Comment on above: Performed By: #### C BC #### [facility] [address] [address] [address] Spencer Braun WBC 7.7 103/ul Normal 4.0-11.0 [facility] Comment on above: Performed By: #### C BC #### [facility] [address] [address] [address] Spencer Braun FREE THYROXINE INDEX T7on FTI 2.87 Normal 1.30-4.50 [facility] Comment on above: Performed By: #### B RETAIL SALESMAN, LIPID, CMP, T7, TSH ####[facility] [address] [place] [address]Dr. Spencer Braun T3U 33.0 % Normal 30.0-39.0 [facility] Comment on above: Performed By: #### B RETAIL SALESMAN, LIPID, CMP, T7, TSH ####[facility] [address] [place] [address]Dr. Spencer Braun T4 [Mass/Vol] 8.70 ug/dL Normal 4.80-13.[address] [facility] Comment on above: Performed By: #### B RETAIL SALESMAN, LIPID, CMP, T7, TSH ####[facility] [address] [place], [place] [address]IzManish Braun GLYCOHEMOGLOBIN A1Con 2022 ADA RECOMMENDATION SEE BELOW Normal [facility] Comment on above: Result Comment: ADA RECOMMENDED LIMIT 4.0 - 6.0 ADA THERAPEUTIC TARGET < 7.0 ACTION SUGGESTED > 7.0 Performed By: #### A 1C ####[facility] [address] [place] [id number] Braun Glucose [Mass/Vol] 123 mg/dL Normal [facility] Comment on above: Performed By: #### A 1C ####[facility] [address] [place] [id number] Braun HbA1c (Bld) [Mass fraction] 5.9 % Normal 4.5-6.[address] [facility] Comment on above: Performed By: #### A 1C ####[facility] [address] [place] [id number] Braun IRONon 07-14-2022 Iron [Mass/Vol] 70.0 ug/dL Normal 50.0-170.0 [facility] Comment on above: Performed By: #### V ITAD, IRON #### [facility] [address] [place], [place] [address] Dr. Spencer Braun LIPID PROFILEon 07-14-2022 CHOL-HDL RATIO NORM SEE BELOW Normal [facility] Comment on above: Result Comment: 3.3 - 4.4 LOW RISK 4.4 - 7.1 AVERAGE RISK 7.1 - 11.0 MODERATE RISK >11.0 HIGH RISK Performed By: #### B RETAIL SALESMAN, LIPID, CMP, T7, TSH ####[facility] [address] [place], [place] [address]BoManish Braun Cholesterol [Mass/Vol] 180 mg/dL Normal <=200 [facility] Comment on above: Performed By: #### B RETAIL SALESMAN, LIPID, CMP, T7, TSH ####[facility] [address] [place] [address]DrManish Braun Cholesterol in HDL [Mass/Vol] 50 mg/dL Normal 40-60 [facility] Comment on above: Performed By: #### B RETAIL SALESMAN, LIPID, CMP, T7, TSH ####[facility] [address] [place] [address]Dr. Spencer Braun Cholesterol in LDL [Mass/Vol] 105.8 mg/dL Normal [facility] Comment on above: Performed By: #### B RETAIL SALESMAN, LIPID, CMP, T7, TSH ####[facility] [address] [place] [address]Dr. Spencer Braun Cholesterol.total/Ch olesterol in HDL [Mass ratio] 3.6 {ratio} Normal [facility] Comment on above: Performed By: #### B RETAIL SALESMAN, LIPID, CMP, T7, TSH ####[facility] [address] [place] [address]Dr. Spencer Braun HDL NORMAL > or = 60 mg/dl - LOW CARDIOVASCULAR RISK <40 mg/dl - HIGH CARDIOVASCULAR RISK Normal [facility] Comment on above: Performed By: #### B RETAIL SALESMAN, LIPID, CMP, T7, TSH ####[facility] [address] [place] [address]Dr. Spencer Braun LDL CALC NORMAL SEE BELOW Normal [facility] Comment on above: Result Comment: <100 mg/dl OPTIMAL 100 - 129 mg/dl NEAR OR ABOVE OPTIMAL 130 - 159 mg/dl BORDERLINE HIGH 160 - 189 mg/dl HIGH >190 mg/dl VERY HIGH Performed By: #### B RETAIL SALESMAN, LIPID, CMP, T7, TSH ####[facility] [address] [place] [id number]. Spencer Braun Triglyceride [Mass/Vol] 121 mg/dL Normal <=150 [facility] Comment on above: Performed By: #### B RETAIL SALESMAN, LIPID, CMP, T7, TSH ####[facility] [address] [place] [address]Dr. Spencer Braun VLDL CALC 24.2 mg/dL Normal [facility] Comment on above: Performed By: #### B RETAIL SALESMAN, LIPID, CMP, T7, TSH ####[facility] [address] [place] [address]Dr. Spencer Braun PROF 14(COMP METB)on 023 Albumin [Mass/Vol] 3.8 g/dL Normal 3.4-5.0 [facility] Comment on above: Performed By: #### B RETAIL SALESMAN, LIPID, CMP, T7, TSH #### [facility] [address] [address] [address] Spencer Braun Albumin/Globulin [Mass ratio] 1.0 {ratio} Normal [facility] Comment on above: Performed By: #### B RETAIL SALESMAN, LIPID, CMP, T7, TSH #### [facility] [address] [place] [address] Dr. Spencer Braun ALP [Catalytic activity/Vol] 135 U/L Critically high 46-[address] [facility] Comment on above: Performed By: #### B RETAIL SALESMAN, LIPID, CMP, T7, TSH #### [facility] [address] [place] [address] Dr. Spencer Braun ALT [Catalytic activity/Vol] 20 U/L Normal 14-[address] [facility] Comment on above: Performed By: #### B RETAIL SALESMAN, LIPID, CMP, T7, TSH #### [facility] [address] [address] [address] Spencer Braun Anion gap [Moles/Vol] 8.4 mmol/L Normal [facility] Comment on above: Performed By: #### B RETAIL SALESMAN, LIPID, CMP, T7, TSH #### [facility] [address] [place] [address] Dr. Spencer Braun AST [Catalytic activity/Vol] 14 U/L Critically low 15-[address] [facility] Comment on above: Performed By: #### B RETAIL SALESMAN, LIPID, CMP, T7, TSH #### [facility] [address] [address] [address] Spencer Braun Bilirubin [Mass/Vol] 0.4 mg/dL Normal 0.2-1.[address] [facility] Comment on above: Performed By: #### B RETAIL SALESMAN, LIPID, CMP, T7, TSH #### [facility] [address] [place] [address] Dr. Spencer Braun Calcium [Mass/Vol] 9.5 mg/dL Normal 8.5-10.1 [facility] Comment on above: Performed By: #### B RETAIL SALESMAN, LIPID, CMP, T7, TSH #### [facility] [address] [place] [address] Dr. Spencer Braun Chloride [Moles/Vol] 104 mmol/L Normal 98-[address] [facility] Comment on above: Performed By: #### B RETAIL SALESMAN, LIPID, CMP, T7, TSH #### [facility] [address] [place] [address] Dr. Spencer Braun CO2 [Moles/Vol] 32.0 mmol/L Normal 21.0-32.[address] [facility] Comment on above: Performed By: #### B RETAIL SALESMAN, LIPID, CMP, T7, TSH #### [facility] [address] [place] [address] Dr. Spencer Braun Creatinine [Mass/Vol] 0.72 mg/dL Normal 0.55-1.[address] [facility] Comment on above: Performed By: #### B RETAIL SALESMAN, LIPID, CMP, T7, TSH #### [facility] [address] [place] [address] Dr. Spencer Braun EGFR-AF FILIPINO >60 Normal >=[address] [facility] Comment on above: Performed By: #### B RETAIL SALESMAN, LIPID, CMP, T7, TSH #### [facility] [address] [place] [address] Dr. Spencer Braun EGFR-NON AF FILIPINO >60 Normal >=[address] [facility] Comment on above: Performed By: #### B RETAIL SALESMAN, LIPID, CMP, T7, TSH #### [facility] [address] [place] [address] Dr. Spencer Braun Globulin (S) [Mass/Vol] 3.9 g/dL Normal [facility] Comment on above: Performed By: #### B RETAIL SALESMAN, LIPID, CMP, T7, TSH #### [facility] [address] [place] [address] Dr. Spencer Braun Glucose [Mass/Vol] 127 mg/dL Critically high 74-106 [facility] Comment on above: Performed By: #### B RETAIL SALESMAN, LIPID, CMP, T7, TSH #### [facility] [address] [place] [address] Dr. Spencer Braun Potassium [Moles/Vol] 4.4 mmol/L Normal 3.5-5.1 [facility] Comment on above: Performed By: #### B RETAIL SALESMAN, LIPID, CMP, T7, TSH #### [facility] [address] [place] [address] Dr. Spencer Braun Protein [Mass/Vol] 7.7 g/dL Normal 6.4-8.2 [facility] Comment on above: Performed By: #### B RETAIL SALESMAN, LIPID, CMP, T7, TSH #### [facility] [address] [place] [address] Dr. Spencer Braun Sodium [Moles/Vol] 140 mmol/L Normal 136-145 [facility] Comment on above: Performed By: #### B RETAIL SALESMAN, LIPID, CMP, T7, TSH #### [facility] [address] [place] [address] Dr. Spencer Braun Urea nitrogen [Mass/Vol] 18.0 mg/dL Normal 7.0-18.[address] [facility] Comment on above: Performed By: #### B RETAIL SALESMAN, LIPID, CMP, T7, TSH #### [facility] [address] [place] [address] Dr. Spencer Braun Urea nitrogen/Creatinine [Mass ratio] 25.0 mg/mg Normal [facility] Comment on above: Performed By: #### B RETAIL SALESMAN, LIPID, CMP, T7, TSH #### [facility] [address] [place] [address] Dr. Spencer Braun TSHon 07-14-2022 TSH 1.760 uIU/mL Normal 0.358-3.[address] [facility] [facility] Comment on above: Performed By: #### B RETAIL SALESMAN, LIPID, CMP, T7, TSH #### [facility] [address] [place] [address] Dr. Spencer Braun VITAMIN D 25 OHon 07-14-2022 VIT D 25-OH 85.7 ng/mL Normal [facility] Comment on above: Performed By: #### V ITAD, IRON #### [facility] [address] [place] [address] Dr. Spencer Braun VIT D RANGES SEE BELOW Normal [facility] Comment on above: Result Comment: <20 ng/mL Vit D deficient 20 - <30 ng/mL Vit D insufficient 30 - 100 ng/mL Vit D sufficient >100 ng/mL Potential Toxicity Performed By: #### V ITAD, IRON #### [facility] [address] [place] [address] Dr. Spencer Braun CBC AUTO DIFFon 04-30-2022 BASO # 0.1 103/ul Normal 0.0-0.[address] [facility] Comment on above: Performed By: #### C BC #### [facility] [address] [place] [address] Dr. Spencer Braun Basophils/100 WBC (Bld) 0.9 % Normal 0.2-2.[address] [facility] Comment on above: Performed By: #### C BC #### [facility] [address] [place] [address] Dr. Spencer Braun EO # 0.2 103/ul Normal 0.0-0.[address] [facility] Comment on above: Performed By: #### C BC #### [facility] [address] [place] [address] Dr. Spencer Braun Eosinophils/100 WBC (Bld) 2.1 % Normal 0.9-7.[address] [facility] Comment on above: Performed By: #### C BC #### [facility] [address] [place] [address] Dr. Spencer Braun Erythrocyte distribution width (RBC) [Ratio] 13.9 % Normal 11.0-15.[address] [facility] Comment on above: Performed By: #### C BC #### [facility] [address] [place] [address] Dr. Spencer Braun Hematocrit (Bld) [Volume fraction] 46.2 % Normal 36.0-48.[address] [facility] Comment on above: Performed By: #### C BC #### [facility] [address] [place] [address] Dr. Spencer Braun Hemoglobin (Bld) [Mass/Vol] 15.1 g/dL Normal 12.0-16.[address] [facility] Comment on above: Performed By: #### C BC #### [facility] [address] [place] [address] Dr. Spencer Braun IG # 0.05 10e3/ul Critically high 0.00-0.03 [facility] Comment on above: Performed By: #### C BC #### [facility] [address] [place] [address] Dr. Spencer Braun IG % 0.6 % Critically high 0.0-0.5 [facility] Comment on above: Performed By: #### C BC #### [facility] [address] [place] [address] Dr. Spencer Braun LYMPH # 1.7 103/ul Normal 1.2-3.[address] [facility] Comment on above: Performed By: #### C BC #### [facility] [address] [place] [address] Dr. Spencer Braun Lymphocytes/100 WBC (Bld) 20.3 % Critically low 20.5-60.[address] [facility] Comment on above: Performed By: #### C BC #### [facility] [address] [place] [address] Dr. Spencer Braun MANUAL DIFF REQ NO Normal [facility] Comment on above: Performed By: #### C BC #### [facility] [address] [place] [address] Dr. Spencer Braun MCH (RBC) [Entitic mass] 28.8 pg Normal 26.7-34.[address] [facility] Comment on above: Performed By: #### C BC #### [facility] [address] [place] [address] Dr. Spencer Braun MCHC (RBC) [Mass/Vol] 32.7 g/dL Normal 29.9-35.[address] [facility] Comment on above: Performed By: #### C BC #### [facility] [address] [place] [address] Dr. Spencer Braun MCV (RBC) [Entitic vol] 88.2 fL Normal 81.0-99.0 [facility] Comment on above: Performed By: #### C BC #### [facility] [address] [address] [address] Spencer Braun MONO # 0.6 103/ul Normal 0.3-0.8 [facility] Comment on above: Performed By: #### C BC #### [facility] [address] [address] [address] Spencer Braun Monocytes/100 WBC (Bld) 7.1 % Normal 1.7-12.[address] [facility] Comment on above: Performed By: #### C BC #### [facility] [address] [place] [address] Dr. Spencer Braun NEUT # 5.7 103/ul Normal 1.4-6.[address] [facility] Comment on above: Performed By: #### C BC #### [facility] [address] [place] [address] Dr. Spencer Braun Neutrophils/100 WBC (Bld) 69.0 % Normal 43.0-75.[address] [facility] Comment on above: Performed By: #### C BC #### [facility] [address] [place] [address] Dr. Spencer Braun Platelet mean volume (Bld) [Entitic vol] 9.2 fL Critically low 9.5-13.[address] [facility] Comment on above: Performed By: #### C BC #### [facility] [address] [place] [address] Dr. Spencer Braun PLT 180 103/ul Normal 150-450 [facility] Comment on above: Performed By: #### C BC #### [facility] [address] [place] [address] Dr. Spencer Braun RBC 5.24 106/ul Normal 4.20-5.40 [facility] Comment on above: Performed By: #### C BC #### [facility] [address] [place] [address] Dr. Spencer Braun WBC 8.2 103/ul Normal 4.0-11.0 [facility] Comment on above: Performed By: #### C BC #### [facility] [address] [place], [place] [address] Dr. Spencer Braun FREE T3on 04-30-2022 FREE T3 2.98 pg/mlL Normal 2.18-3.[address] [facility] Comment on above: Performed By: #### L IPID, TSH, T4, FT3, CMP ####[facility] [address] [id number] Braun GLYCOHEMOGLOBIN A1Con 2021 ADA RECOMMENDATION SEE BELOW Normal [facility] Comment on above: Result Comment: ADA RECOMMENDED LIMIT 4.0 - 6.0 ADA THERAPEUTIC TARGET < 7.0 ACTION SUGGESTED > 7.0 Performed By: #### A 1C ####[facility] [address] [address]DrManish Braun Glucose [Mass/Vol] 134 mg/dL Normal [facility] Comment on above: Performed By: #### A 1C ####[facility] [address] [address]DrManish Braun HbA1c (Bld) [Mass fraction] 6.3 % Critically high 4.5-6.[address] [facility] Comment on above: Performed By: #### A 1C ####[facility] [address] [address]Dr. Spencer Braun LIPID PROFILEon 04-30-2022 CHOL-HDL RATIO NORM SEE BELOW Normal [facility] Comment on above: Result Comment: 3.3 - 4.4 LOW RISK 4.4 - 7.1 AVERAGE RISK 7.1 - 11.0 MODERATE RISK >11.0 HIGH RISK Performed By: #### L IPID, TSH, T4, FT3, CMP ####[facility] [address] [id number] Braun Cholesterol [Mass/Vol] 177 mg/dL Normal <=[address] [facility] Comment on above: Performed By: #### L IPID, TSH, T4, FT3, CMP ####[facility] [address] [id number] Braun Cholesterol in HDL [Mass/Vol] 56 mg/dL Normal 40-[address] [facility] Comment on above: Performed By: #### L IPID, TSH, T4, FT3, CMP ####[facility] [address] [address]Dr. Spencer Braun Cholesterol in LDL [Mass/Vol] 97.8 mg/dL Normal [facility] Comment on above: Performed By: #### L IPID, TSH, T4, FT3, CMP ####[facility] [address] [address]Dr. Spencer Braun Cholesterol.total/Ch olesterol in HDL [Mass ratio] 3.2 {ratio} Normal [facility] Comment on above: Performed By: #### L IPID, TSH, T4, FT3, CMP ####[facility] [address] [place], [place] [address]Dr. Spencer Braun HDL NORMAL > or = 60 mg/dl - LOW CARDIOVASCULAR RISK <40 mg/dl - HIGH CARDIOVASCULAR RISK Normal [facility] Comment on above: Performed By: #### L IPID, TSH, T4, FT3, CMP ####[facility] [address] [place], [place] [address]Dr. Spencer Braun LDL CALC NORMAL SEE BELOW Normal [facility] Comment on above: Result Comment: <100 mg/dl OPTIMAL 100 - 129 mg/dl NEAR OR ABOVE OPTIMAL 130 - 159 mg/dl BORDERLINE HIGH 160 - 189 mg/dl HIGH >190 mg/dl VERY HIGH Performed By: #### L IPID, TSH, T4, FT3, CMP ####[facility] [address] [address]Dr. Spencer Braun Triglyceride [Mass/Vol] 116 mg/dL Normal <=150 [facility] Comment on above: Performed By: #### L IPID, TSH, T4, FT3, CMP ####[facility] [address] [place], [place] [address]Dr. Spencer Braun VLDL CALC 23.2 mg/dL Normal [facility] Comment on above: Performed By: #### L IPID, TSH, T4, FT3, CMP ####[facility] [address] [address]Dr. Spencer Braun PROF 14(COMP METB)on 022 Albumin [Mass/Vol] 3.8 g/dL Normal 3.4-5.0 [facility] Comment on above: Performed By: #### L IPID, TSH, T4, FT3, CMP ####[facility] [address] [address]Dr. Spencer Braun Albumin/Globulin [Mass ratio] 0.9 {ratio} Normal [facility] Comment on above: Performed By: #### L IPID, TSH, T4, FT3, CMP ####[facility] [address] [address]Dr. Spencer Braun ALP [Catalytic activity/Vol] 143 U/L Critically high 46-[address] [facility] Comment on above: Performed By: #### L IPID, TSH, T4, FT3, CMP ####[facility] [address] [place], [place] [address]Dr. Spencer Braun ALT [Catalytic activity/Vol] 19 U/L Normal 14-[address] [facility] Comment on above: Performed By: #### L IPID, TSH, T4, FT3, CMP ####[facility] [address] [address]Dr. Spencer Braun Anion gap [Moles/Vol] 12.1 mmol/L Normal [facility] Comment on above: Performed By: #### L IPID, TSH, T4, FT3, CMP ####[facility] [address] [place], [place] [address]Dr. Spencer Braun AST [Catalytic activity/Vol] 17 U/L Normal 15-[address] [facility] Comment on above: Performed By: #### L IPID, TSH, T4, FT3, CMP ####[facility] [address] [place], [place] [address]Dr. Spencer Braun Bilirubin [Mass/Vol] 0.3 mg/dL Normal 0.2-1.[address] [facility] Comment on above: Performed By: #### L IPID, TSH, T4, FT3, CMP ####[facility] [address] [address]Dr. Spencer Braun Calcium [Mass/Vol] 9.5 mg/dL Normal 8.5-10.1 [facility] Comment on above: Performed By: #### L IPID, TSH, T4, FT3, CMP ####[facility] [address] [address]Dr. Spencer Braun Chloride [Moles/Vol] 102 mmol/L Normal 98-107 [facility] Comment on above: Performed By: #### L IPID, TSH, T4, FT3, CMP ####[facility] [address] [address]Dr. Spencer Braun CO2 [Moles/Vol] 32.6 mmol/L Critically high 21.0-32.[address] [facility] Comment on above: Performed By: #### L IPID, TSH, T4, FT3, CMP ####[facility] [address] [place], [place] [address]Dr. Spencer Braun Creatinine [Mass/Vol] 0.69 mg/dL Normal 0.55-1.02 [facility] Comment on above: Performed By: #### L IPID, TSH, T4, FT3, CMP ####[facility] [address] [place], [place] [address]Dr. Spencer Braun EGFR-AF FILIPINO >60 Normal >=60 [facility] Comment on above: Performed By: #### L IPID, TSH, T4, FT3, CMP ####[facility] [address] [place], [place] [address]Dr. Spencer Braun EGFR-NON AF FILIPINO >60 Normal >=60 [facility] Comment on above: Performed By: #### L IPID, TSH, T4, FT3, CMP ####[facility] [address] [place], [place] [address]Dr. Spencer Braun Globulin (S) [Mass/Vol] 4.1 g/dL Normal [facility] Comment on above: Performed By: #### L IPID, TSH, T4, FT3, CMP ####[facility] [address] [address]Dr. Spencer Braun Glucose [Mass/Vol] 108 mg/dL Critically high 74-106 [facility] Comment on above: Performed By: #### L IPID, TSH, T4, FT3, CMP ####[facility] [address] [place], [place] [address]Dr. Spencer Braun Potassium [Moles/Vol] 4.7 mmol/L Normal 3.5-5.1 [facility] Comment on above: Performed By: #### L IPID, TSH, T4, FT3, CMP ####[facility] [address] [place], [place] [address]Dr. Spencer Braun Protein [Mass/Vol] 7.9 g/dL Normal 6.4-8.2 [facility] Comment on above: Performed By: #### L IPID, TSH, T4, FT3, CMP ####[facility] [address] [place], [place] [address]Dr. Spencer Braun Sodium [Moles/Vol] 142 mmol/L Normal 136-145 [facility] Comment on above: Performed By: #### L IPID, TSH, T4, FT3, CMP ####[facility] [address] [place], [place] [address]Dr. Spencer Braun Urea nitrogen [Mass/Vol] 19.0 mg/dL Critically high 7.0-18.[address] [facility] Comment on above: Performed By: #### L IPID, TSH, T4, FT3, CMP ####[facility] [address] [place], [place] [address]Dr. Spencer Braun Urea nitrogen/Creatinine [Mass ratio] 27.5 mg/mg Normal [facility] Comment on above: Performed By: #### L IPID, TSH, T4, FT3, CMP ####[facility] [address] [place], [place] [address]Dr. Spencer Braun T4on 04-30-2022 T4 [Mass/Vol] 8.30 ug/dL Normal 4.80-13.[address] [facility] Comment on above: Performed By: #### L IPID, TSH, T4, FT3, CMP ####[facility] [address] [place], [place] [address]KtManish Braun TSHon 04-30-2022 TSH 1.777 uIU/mL Normal 0.358-3.740 [facility] Comment on above: Performed By: #### L IPID, TSH, T4, FT3, CMP ####[facility] [address] [place], [place] [address]LsManish Braun VITAMIN D 25 OHon 04-30-2022 VIT D 25-OH 72.1 ng/mL Normal [facility] Comment on above: Performed By: #### V ITAD #### [facility] [address] [address] [address] Spencer Braun VIT D RANGES SEE BELOW Normal [facility] Comment on above: Result Comment: <20 ng/mL Vit D deficient 20 - <30 ng/mL Vit D insufficient 30 - 100 ng/mL Vit D sufficient >100 ng/mL Potential Toxicity Performed By: #### V ITAD #### [facility] [address] [place], [place] [address] Dr. Spencer Braun MG MAMM SCREEN 3D AWAIS CADon 02-16-2022 MG MAMM SCREEN 3D AWAIS CAD Patient: BETH STARKEY Exam Date: 02/16/2022 : 1940 Gender:F Ordering : DR MARCK TATE . Admission #: [id number] Family : Order #: [id number] CLICK HERE TO VIEW EXAM RADIOLOGY REPORT [...] prostate cancer at age 71. LOCATION: [facility] BREAST COMPOSITION: Heterogeneously dense,which may obscure [...] MD on 02/17/2022 at 07:39 Normal [facility] Vital Signs Date Time Vital Sign Value Performing Clinician Tony jenkins 09-28-2024 14:15-0400 Measurement/Vitals Comment Unable to obtain; Telephone visit. Nati Petty [facility] 08-15-2024 14:13-0400 Body mass index (BMI) [Ratio] 29.63 kg/m2 Timo Ihsan DO Work Phone: [facility] 08-15-2024 14:13-0400 Body weight 71.12 kg Timo Ihsan DO Work Phone: [facility] 08-15-2024 14:13-0400 Diastolic blood pressure 80 mm[Hg] Timo Ihsan DO Work Phone: [facility] 08-15-2024 14:13-0400 Systolic blood pressure 114 mm[Hg] Timo Ihsan DO Work Phone: [facility] 07-17-2024 15:08-0500 Body mass index (BMI) [Ratio] 29.44 kg/m2 Timo Ihsan DO Work Phone: [facility] 07-17-2024 15:08-0500 Body weight 70.67 kg Timo Ihsan DO Work Phone: [facility] 07-17-2024 15:08-0500 Diastolic blood pressure 70 mm[Hg] Timo Ihsan DO Work Phone: [facility] 07-17-2024 15:08-0500 Systolic blood pressure 120 mm[Hg] Timo Ihsan DO Work Phone: [facility] 12-16-2023 15:18-0400 Diastolic blood pressure 68 mm[Hg] Tam Mauricionus [facility] 12-16-2023 15:18-0400 Systolic blood pressure 118 mm[Hg] Tam Mauricionus [facility] 05-12-2023 10:13-0500 Diastolic blood pressure 72 mm[Hg] Sha Barrerasilke [facility] 05-12-2023 10:13-0500 Heart rate 94 /min Sha Vallejo [facility] 05-12-2023 10:13-0500 SaO2% (BldA) [Mass fraction] 90 % Sha Rodipppasilke [facility] 05-12-2023 10:13-0500 Systolic blood pressure 130 mm[Hg] Sha Barrerasilke [facility] 05-03-2023 12:24-0500 Diastolic blood pressure 59 mm[Hg] Jena Hicks MD Work Phone: [facility] 05-03-2023 12:24-0500 Heart rate 86 /min Jena Hicks MD Work Phone: [facility] 05-03-2023 12:24-0500 Systolic blood pressure 103 mm[Hg] Jena Hicks MD Work Phone: [facility] 05-03-2023 12:14-0500 Body height 152.4 cm Jena Hicks MD Work Phone: [facility] 05-03-2023 12:14-0500 Body temperature 98.29 [degF] Jena Hicks MD Work Phone: [facility] 05-03-2023 12:14-0500 Body weight 65.82 kg Jena Hicks MD Work Phone: [facility] 05-03-2023 12:14-0500 Respiratory rate 16 /min Jena Hicks MD Work Phone: [facility] 05-03-2023 12:14-0500 SaO2% (BldA) [Mass fraction] 93 % Jena Hicks MD Work Phone: [facility] 09-06-2022 09:39-0400 Blood Pressure Location Dayron Jorgensen [facility] 09-06-2022 09:39-0400 Diastolic blood pressure 81 mm[Hg] Dayron Davidsonan [facility] 09-06-2022 09:39-0400 Heart rate 103 /min Dayron Davidsonan [facility] 09-06-2022 09:39-0400 SaO2% (BldA) [Mass fraction] 90 % Dayron Davidsonan [facility] 09-06-2022 09:39-0400 Systolic blood pressure 126 mm[Hg] [facility] Encounters Encounter Date Encounter Type Care Provider Facility Start: 12-07-2024 End: 12-07-2024 ambulatory XXXX NONE Facility:[facility] Start: 09-28-2024 End: 09-28-2024 Patient encounter procedure Nati Petty [facility] Start: 09-28-2024 End: 09-28-2024 ambulatory PA-C Nati Petty Facility:[facility] Start: 08-16-2024 End: 09-28-2024 Patient encounter procedure Jus Del Castillo [facility] Start: 08-15-2024 End: 08-15-2024 Bamboo flowsheet Timo [...] Start: 07-20-2024 End: 07-20-2024 ambulatory XXXX NONE Facility:[facility] Start: 07-17-2024 End: 07-17-2024 Office outpatient visit [...] End: 07-06-2024 Patient encounter procedure Tam Vallejo [facility] Start: 01-20-2024 End: 01-20-2024 ambulatory [facility] Start: 01-09-2024 End: 01-10-2024 ambulatory [facility] Start: 12-16-2023 End: 12-17-2023 Pre-admission assessment Tam Vallejo [facility] Start: 12-16-2023 End: 12-16-2023 ambulatory XXXX NONE Facility:[facility] Start: 11-09-2023 End: 11-09-2023 ambulatory TIMO CHAMPAGNE Not Available Start: 05-12-2023 End: 05-12-2023 Patient encounter procedure Sha Vallejo [facility] Start: 05-04-2023 Orders Only Jena Hicks MD Work Phone: [facility] Comment on above: 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); Bilateral carotid artery stenosis; Other disorders of arteries, arterioles and capillaries in diseases classified elsewhere (HCC) Start: 05-03-2023 End: 05-03-2023 ambulatory JENA HICKS Facility:[facility] Start: 05-03-2023 End: 05-03-2023 Office outpatient visit 25 minutes Jena Hicks MD Work Phone: [facility] Comment on above: 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) Start: 04-26-2023 Orders Only Jena Hicks MD Work Phone: [facility] Comment on above: Chest pain, unspecif ied type (Primary Dx) Start: 04-25-2023 Telephone encounter No Pcp [facility] [employer] SALESPERSON NOC Comment on above: Appointment Start: 04-22-2023 Telephone encounter No One (Historic al) Referring Physician Comment on above: External Referrals/r esources Start: 03-23-2023 End: 03-23-2023 Patient encounter procedure Sha Vallejo [facility] Start: 01-20-2023 End: 01-20-2023 Patient encounter procedure Sha Vallejo [facility] Start: 09-24-2022 End: 09-24-2022 Patient encounter procedure Dayron Jorgensen [facility] Start: 09-06-2022 End: 09-06-2022 Patient encounter procedure Dayron Jorgensen [facility] Start: 08-02-2022 End: 08-03-[address] MARCK TATE . Facility:[facility] Start: 07-28-2022 End: 07-28-[address] MARCK TATE . Facility:[facility] Start: 07-14-2022 End: 07-15-[address] MARCK TATE . Facility:[facility] Start: 04-30-2022 End: 05-01-[address] MARCK TATE . Facility:[facility] Start: 02-16-2022 End: 02-17-[address] MARCK TATE . Facility: Start: 06-17-2017 End: 06-18-2017 Ambulatory DEFAULT PHYSICIAN Facility:[facility] Plan of Treatment Date Care Activity Detail Author Start: 07-04-2029 Urine microalbumin profile DTaP,Tdap,Td Vaccine (2 - Td or Tdap) [facility] Start: 08-15-2024 End: 08-15-2024 Patient encounter procedure 08/15/2024 1:50 PM EDT Office Visit [facility] [address] [place] [address] Timo Champagne, [address], [place] [address] Arrived [facility] Comment on above: Arrived Start: 08-07-2024 End: 08-07-2024 Professional / ancillary services management 08/07/2024 2:30 PM EDT Ancillary Procedure [facility] [address] [place] [address] [facility] Start: 07-17-2024 End: 07-17-2024 Patient encounter procedure 07/17/2024 2:40 PM EST Office Visit [facility] [address] [place] [address] Timo Champagne, DO [address] [place] [address] [place] [address] Arrived [facility] Comment on above: Arrived Start: 07-17-2024 End: 07-17-2025 US Pelvis US Pelvis w/ TV Imaging Routine Cyst of left ovary Expected: 07/17/2024, Expires: 07/17/2025 [facility] Work Phone: Comment on above: Expected: 07/17/2024 , Expires: 07/17/2025 Start: 01-22-2024 Influenza vaccination Influenza Vacc ine (#1) [facility] Start: 01-21-2023 Influenza vaccination Influenza Vacc ine (#1) [facility] Start: 05-23-2022 Advance Directive Discussion Advance Directive Discussion [facility] Start: 05-23-2022 Depression Assessment Depression Ass essment [facility] Start: 03-23-2018 Pneumococcal Vaccine : 65+ Years (2 of 2 - PPSV23 or PCV20) Pneumococcal Vaccine: 65+ Years (2 of 2 - PPSV23 or PCV20) [facility] Start: 05-18-2017 Pneumococcal Vaccine : 65+ (2 - PPSV23 or PCV20) Pneumococcal Vaccine: 65+ (2 - PPSV23 or PCV20) [facility] Start: 2006 Bone Density Screening Bone Density Screening [facility] Start: 2006 Pneumococcal Vaccine : 65+ (1 - PCV) Pneumococcal Vaccine: 65+ (1 - PCV) [facility] Start: 2006 Screening for osteoporosis Bone Density Screening [facility] Start: 2001 RSV Vaccine (1 - 1-d ose 60+ series) RSV Vaccine (1 - 1-dose 60+ series) [facility] Start: 1991 Shingrix Vaccine (1 of 2) Shingrix Vaccine (1 of 2) [facility] Start: 1986 Diabetes Screening Diabetes Screenin g [facility] Start: 1940 Covid-19 Vaccine (#1) Covid-19 Vacci ne (#1) [facility] End: 05-25-2024 Ct angio abd&plvis cntrst mtrl w/wo cntrst img CTA ABD/PEL WO/W IVCON Radiology Routine Chest pain, unspecified type 1 Occurrences starting 04/26/2023 until 05/25/2024 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 [facility] Work Phone: Comment on above: 1 Occurrences starti ng 05/04/2023 until 06/02/2024 End: 05-25-2024 Ct angiography chest w/contrast/noncontrast CTA CHEST (NONGATED) WO/W IVCON Radiology Routine Chest pain, unspecified type 1 Occurrences starting 04/26/2023 until 05/25/2024 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 Work Phone: Comment on above: 1 Occurrences starti ng 05/04/2023 until 05/04/2024 End: 05-04-2024 US CAROTID ARTERIES AWAIS VAS LAB US CAROTID ARTERIES AWAIS VAS LAB Vascular Lab Routine Bilateral carotid artery stenosis 1 Occurrences starting 05/04/2023 until 05/04/2024 [facility] Work Phone: Comment on above: 1 Occurrences starti ng 05/04/2023 until 05/04/2024 [facility] Immunizations Immunization Date Immunization Notes Care Provider Kay bennett 01-20-2024 tetanus toxoid, redu gene diphtheria toxoid, and acellular pertussis vaccine, adsorbed Jus Magdalene [facility] 04-26-2023 influenza virus vaccine, unspecified formulation Timo Champagne DO Work Phone: [facility] 12-16-2021 SARS-CoV-2 mRNA (vtbdegdiayv-jupv-phewe se) vaccine Jus Magdalene [facility] Comment on above: Result Comment: 2024: [id number] 04-07-2021 SARS-CoV-2 (COVID-19 ) mRNA BNT-162b2 vax Jus Magdalene [facility] Comment on above: Result Comment: 2024: [id number] 09-29-2020 SARS-CoV-2 (COVID-19 ) mRNA BNT-162b2 vax Jus Magdalene [facility] 09-08-2020 SARS-CoV-2 (COVID-19 ) mRNA BNT-162b2 vax Jus Magdalene [facility] 04-23-2020 influenza virus vaccine, unspecified formulation Jus Magdalene [facility] 07-04-2019 tetanus toxoid, redu gene diphtheria toxoid, and acellular pertussis vaccine, adsorbed Jus Magdalene [facility] 03-23-2017 pneumococcal conjuga te vaccine, 13 valent Jus Magdalene [facility] 03-06-2017 influenza virus vaccine, unspecified formulation Jus Del Castillo [facility] Payers Date Payer Category Payer [employer] others) [id number] 2018 [employer] others) [id number] 2006 Medicare [id number] 1998 () [id number] 1959 [employer] ( and others) [id number] 1959 Medicare [id number] 1940 Unknown [id number] 2.840.1.832668.3.579. 2.593 1941 Unknown [id number] 2.16840.1.133100.3.579. 2.593 1941 Unknown [id number] 2.16.840.1.413959.3.579. 2.593 1941 Unknown [id number] 2.16.840.1.467222.3.579. 2.593 1941 Unknown [id number] 2.16.840.1.991442.3.579. 2.593 1941 Unknown [id number] 2.16.840.1.527168.3.579. 2.1259 1941 Unknown [id number] 2.16.840.1.509193.3.579. 2.1259 1941 Unknown [id number] 2.16.840.1.229391.3.579. 2.1259 1941 Unknown [id number] 2.16.840.1.816553.3.579. 2.1259 1941 Unknown [id number] 2.16.840.1.667122.3.579. 2.727 1941 Unknown [id number] 2.16.840.1.752572.3.579. 2.727 1941 Unknown [id number] 2.16.840.1.052430.3.579. 2.727 1941 Unknown [id number] 2.16.840.1.938582.3.579. 2.727 1941 Unknown [id number] 2.16.840.1.062855.3.579. 2.727 Unknown Social History Date Type Detail Facility Start: 09-06-2022 End: 09-28-2024 Tobacco smoking status Heavy tobacco smoker (finding) [facility] Start: 05-03-2023 Sex Assigned At Female F [facility] consumption [facility] Start: 1940 Sex Assigned At Not on file C [facility] Start: 05-23-1956 Tobacco smoking stat [facility] Smokes tobacco daily [facility] Start: 05-23-1956 History of tobacco use Cigarette Smo ker [facility] Start: 05-03-2023 Cigarettes smoked current (pack per day) - Reported 1.5 [facility] Start: 05-03-2023 Tobacco use and exposure Smoke less tobacco non-user [facility] Start: 05-03-2023 Alcohol intake Current drinke r of alcohol (finding) [facility] National Score (1-10 0), lower number is lower risk 87 [facility] Start: 05-03-2023 Alcohol Comment [facility] O[facility] Start: 08-17-2022 Sex Female (finding) [facility] Functional Status Date Assessment Result Facility 09-28-2024 Functional Status N/A [facility] 12-16-2023 Functional Status N/A [facility] 05-12-2023 Functional Status N/A [facility] 09-06-2022 Functional Status No [facility] Clinical Notes 03-22-2023 to 08-15-2024 Patrizia Wells [...] nursing note reviewed. Exam conducted with a cable ferry operator present. Vitals: Estimated body mass index is [...] 12:06 PM EDT documented in this encounter [facility] 07-17-2024 History of Present illness Narrative [...] nursing note reviewed. Exam conducted with a cable ferry operator present. 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 [facility] 01-09-2024 Note [facility] Note Reason for cardiology consult: Dyspnea on exertion, prior history of CAD Chief Complaint: Dyspnea on exertion HPI: Beth Starkey is a 83 y.o. 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 [facility] 05-26-2023 Note [facility] ([id number]) 1940 F Date Time Provider Department 05/26/23 [...] and brochure sent Lung Nodule Program Location: [place] Allergies As of Date: 05/26/2023 (No Known [...] Encounter Status:Closed by EVANGELINA BURNETT on 05/26/23 [facility] 05-26-2023 Note HNO ID: [id number] Author: ?, ?, ? Service: ? Author [...] [place] 05-18-2023 Note Patient Outreach ([facility]) BETH STARKEY ([id number]) 1940 F Date Time Provider Department 05/18/23 SOFIA BELLO [facility] During your visit today, we recorded the following information about you: Sofia Bello, STAMPS [employer] COINS SALESPERSON.[facility] 05/18/2023 11:12 AM Signed Incidental Lung Nodule Enrollment Outreach attempt: 1st Attempt Outreach status: Complete Enrolled in Lung Nodule program: Referred Lung Nodule outreach: No outreach - Very small nodule, letter and brochure sent Lung Nodule Program Location: [place] Allergies As of Date: 05/18/2023 (No Known [...] Encounter Status:Closed by SOFIA BELLO on 05/18/23 [facility] 05-18-2023 Note HNO ID: [id number] Author: Sofia Bello, CHELSEA.WINDOW SHADE RING COVERER Service: ? Author Type: Nurse Practitioner Type: Progress Notes Filed: 05/18/2023 11:12 AM Note Text: Incidental Lung Nodule Enrollment Outreach attempt: 1st Attempt Outreach status: Complete Enrolled in Lung Nodule program: Referred Lung Nodule outreach: No outreach - Very small nodule, letter and brochure sent Lung Nodule Program Location: [facility] [place] 05-03-2023 Note HNO ID: [id number] Author: Nadine Cummins RN Service: Radiology Author [...] DATE: May 03, 2023 TIME: 1:00 PM [facility] 05-03-2023 Note HNO ID: [id number] Author: Kandy Aragon RT(R) Service: Radiology Author [...] RT Tess(R) May 03, 2023 1:19 PM [facility] 05-03-2023 History and physical note Heart , Vascular and Thoracic [place] DEPARTMENT OF VASCULAR SURGERY OUTPATIENT VISIT DATE [...] 4 - Moderate documented in this encounter [facility] 04-25-2023 Miscellaneous Notes Reason for call: Ms Starkey called,and she would like to schedule an appointment with vascular surgery Referred by Dr Judit [facility] and cell number: [phone] Diagnosis: AAA Kind Regards Med documented in this encounter [facility] 04-22-2023 Miscellaneous Notes Patient: Beth Starkey Date of : 1940 Patient phone number: [phone] Referring Provider for the encounter: Marck Tate MD Requesting Provider: N/A Reason for requesting visit (RFV/signs and symptoms/diagnosis): Sent Telephone Encounter - updated tracking. Person calling: caregiver: Patrizia Return call to: self Medical Records/Insurance Card scanned into Epic: Yes Comments: N/A documented in this encounter [facility] 03-23-2023 Evaluation + Plan note Diagnostic Tests PendingCreatinine 03/23/23 Future Scheduled TestsCTA Abd Aorto-bilat/ iliofemoral runoff 03/22/23 [facility] 03-22-2023 Evaluation + Plan note Future Scheduled TestsCTA Abd Aorto-bilat/ iliofemoral runoff 03/22/23 [facility] Evaluation + Plan note Future Appointments Appointment Date:10/11/2022 10:00:00 AM Scheduled Provider:Dayron Jorgensen MD Location:[facility].Vascular Clinic Appointment Type:Vascular Follow Up (FT) Future Scheduled TestsCTA Abdomen and Pelvis 09/06/22CTA Chest 09/06/22 [facility] Evaluation + Plan note Future Appointments Appointment Date:10/11/2022 10:00:00 AM Scheduled Provider:Dayron Jorgensen MD [facility] Type:Vascular Follow Up (FT) [facility] Evaluation + Plan note Future Scheduled TestsCTA Abd Aorto-bilat/ iliofemoral runoff 03/22/23 [facility] Evaluation + Plan note Future Appointments Appointment Date:06/18/2024 09:45:00 AM Scheduled Provider:Tam Vallejo MD [facility] [place] Appoint[facility] Type:Cardiology Follow Up (FT) Future Scheduled TestsCTA Abd Aorto-bilat/ iliofemoral runoff 03/22/23 [facility] Evaluation + Plan note Future Appointments Appointment Date:07/20/2024 10:00:00 AM Scheduled Provider:Tam Vallejo MD [facility] [place] Appoint[facility] Type:Cardiology Follow Up (FT) Future Scheduled TestsLipid Panel 12/19/23NM Myocardial Spect Rest/Stress 1 Day 12/21/23Echo Transthoracic Complete 12/21/23CTA Abd Aorto-bilat/ iliofemoral runoff 03/22/23 [facility] Evaluation + Plan note Future Appointments Appointment Date:12/07/2024 03:00:00 PM Scheduled Provider:Jus Del Castillo MD Location:.[facility] [place] Appointment Type:Cardiology Follow Up (FT) Future Scheduled TestsLipid Panel 07/24/24NM Myocardial Spect Rest/Stress 1 Day 12/21/23Echo Transthoracic Complete 12/21/23CTA Abd Aorto-bilat/ iliofemoral runoff 09/17/24 [facility] Evaluation note Diagnosis Chest pain, unspecified type- Primary [facility] Diagnosis 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 [facility] Diagnosis 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 Bilateral carotid artery stenosis Occlusion and stenosis of carotid artery without mention of cerebral infarction Other disorders of arteries, arterioles and capillaries in diseases classified elsewhere ([facility]) documented [facility] this [facility]* Diagnosis Cyst of left ovary Other and unspecified ovarian cyst documented in this encounter [facility] HealthcareEvaluation note* Diagnosis Encounter to discuss test results Other specified counseling Cyst of left ovary Other and unspecified ovarian cyst documented in this encounter [facility] HealthcareHospital course Narrative No data available for this section [facility] instructions No data available for this section [facility] note No data available for this section [facility] CenterReason for referral (narrative)* Outpatient Procedure (Routine) - Authorized Specialty Diagnoses / Procedures Referred By Manjula t Referred To Contact [facility] [place] Diagnoses 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) Other disorders of arteries, arterioles and capillaries in diseases classified elsewhere ([facility]) Procedures PVR ANK/HILL/TOE AWAIS VAS LAB NON-INVAS PHYSIOLOGIC STD EXTREMITY ART 2 LEVEL Jena Hicks MD [address] [place] [address] [facility] [place] [address] [place] [address] Referral ID Status Reason Start Date Expiration Date Visits Requested Visits Authorized [id number] Authorized Auto-Generat ed Referral 3 05/03/2024 1 1 * MRI/CT (Routine) - Authorized Specialty Diagnoses / Procedures Referred By Marcac t Referred To Contact CT IMAGING Diagnoses 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) Procedures CTA ABD/PEL WO/W IVCON CT ANGIO ABD&PLVIS CNTRST MTRL W/WO CNTRST Jena Todd MD [address] [place] [address] Ct [facility] [place] [address] Referral ID Status Reason Start Date Expiration Date Visits Requested Visits Authorized [id number] Authorized Auto-Generat ed Referral 3 06/02/2024 1 1 * MRI/CT (Routine) - Authorized Specialty Diagnoses / Procedures Referred By Manjula t Referred To Contact CT IMAGING Diagnoses 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) Procedures CTA CHEST (NONGATED) WO/W IVCON CT ANGIOGRAPHY CHEST W/CONTRAST/NONCONTRAST Jena Hicks MD [address] [place] [address] [facility] [place] [address] Referral ID Status Reason Start Date Expiration Date Visits Requested Visits Authorized [id number] Authorized Auto-Generat ed Referral 3 06/02/2024 1 1 * Outpatient Procedure (Routine) - Authorized Specialty Diagnoses / Procedures [facility] Diagnoses Bilateral carotid artery stenosis Procedures US CAROTID ARTERIES AWAIS VAS LAB DUPLEX SCAN EXTRACRANIAL [place] [address] [place] [address] [facility] [place] [address] [place] [address] Referral ID Status Reason Start Date Expiration Date Visits Requested Visits Authorized [id number] Authorized Auto-Generat ed Referral 12/1305/03/2024 1 1 [facility] Summary Purpose Family History No Family [...] ANGIO ABD&PLVIS CNTRST MTRL W/WO [facility] Jena Hicks MD [address] [place] [address] [facility] [place] [address] Referral ID Status Reason Start Date Expiration Date Visits Requested Visits Authorized [id number] Authorized Auto-Generat ed Referral 04/26/2023 05/25/2024 1 1 Specialty Diagnoses / Procedures Referred By Contac t Referred To Contact CT IMAGING Diagnoses Chest pain, unspecified type Procedures CTA CHEST (NONGATED) WO/W IVCON CT ANGIOGRAPHY CHEST W/CONTRAST/NONCONTRAST Jena Hicks MD [address] [place] [address] [facility] [place] [address] Referral ID Status Reason Start Date Expiration Date Visits Requested Visits Authorized [id number] Authorized Auto-Generat ed Referral 04/26/2023 05/25/2024 1 1 Additional Source Comments INFORMATION SOURCE (unrecogn ized section and content) DATE CREATED AUTHOR 11/14/2017 [facility] DATE CREATED AUTHOR AUTHOR'S ORGANIZ ATION 08/09/2022 [facility] DATE CREATED AUTHOR AUTHOR'S ORGANIZ ATION 05/27/2023 [facility] DATE CREATED AUTHOR AUTHOR'S ORGANIZ ATION 01/22/2024 [facility] DATE CREATED AUTHOR AUTHOR'S ORGANIZ ATION 08/16/2024 [facility] EPIC DATE CREATED AUTHOR AUTHOR'S ORGANIZ ATION 12/11/2024 [facility] Patient Care team informatio n (unrecognized section and content) Portable Router Operator Relationship Specialty Start Date End Date Marck Tate MD [address] [place] [facility] [place] [address] Family Medicine 04/22/23 Portable Router Operator Relationship Specialty Start Date End Date Marck Tate MD [address] [place] [facility] [place] [address] Family Medicine 04/22/23 Portable Router Operator Relationship Specialty Start Date End Date Marck Tate MD [address] [place] [facility] [address] Family Medicine 04/22/23 Portable Router Operator Relationship Specialty Start Date End Date Marck Tate MD [address] [place] [facility] [place] [address] Family Medicine 04/22/23 Portable Router Operator Relationship Specialty Start Date End Date Marck Tate MD [address] [facility] [place] [address] PCP - General Family Medicine 05/30/23 Portable Router Operator Relationship Specialty Start Date End Date Marck Tate MD [address] [facility] [place] [address] PCP - General Family Medicine 05/30/23 Portable Router Operator Relationship Specialty Start Date End Date Marck Tate MD [address] [place] [address] PCP - General Family Medicine 05/30/23 Portable Router Operator Relationship Specialty Start Date End Date Marck Tate MD [address] [place] [address] PCP - General Family Medicine 05/30/23 Source Comments (unrecognize d section and content) In the event this informatio n is protected by the Federal Confidentiality of Alcohol and Drug Abuse Patient Records regulations: The Federal rules restrict any use of the information to criminally investigate or prosecute any alcohol or drug abuse patient.[facility] System[facility] the event this information is protected by the Federal Confidentiality of Alcohol and Drug Abuse Patient Records regulations: The Federal rules restrict any use of the information to criminally investigate or prosecute any alcohol or drug abuse patient.[facility] SystemIn the event this information is protected by the Federal Confidentiality of Alcohol and Drug Abuse Patient Records regulations: The Federal rules restrict any use of the information to criminally investigate or prosecute any alcohol or drug abuse patient.[facility] SystemIn the event this information is protected by the Federal Confidentiality of Alcohol and Drug Abuse Patient Records regulations: The Federal rules restrict any use of the information to criminally investigate or prosecute any alcohol or drug abuse patient.[facility] SystemIn the event this information is protected by the Federal Confidentiality of Alcohol and Drug Abuse Patient Records regulations: The Federal rules restrict any use of the information to criminally investigate or prosecute any alcohol or drug abuse patient.[facility] Reason for Visit (unrecogniz ed section and [...] BE BASED ON THE PRIMARY CLINICAL RECORDS. [facility] [employer] [facility]. provides no warranty or guarantee of the accuracy or completeness of information in this document.
[2025-01-30 08:00] LABS: Estimated GFR (African America >60 (>=60 mL/min/1.73m^2); Estimated GFR (Non-African Ame 51 (>=60 mL/min/1.73m^2)
--- NOTE | 2025-01-30 08:40 | CT_ITS ---
The [address] [address] Patient Name: ADELA PARDO MRN: [id number] date: 1940 Sex: F Assigned Patient Location: CT Current Patient Location: CT Accession/Order Number: [id number] Exam Date: 01/30/2025 08:25 Report Date: 01/30/2025 09:36 At the request of: NATI CALDERON Procedure: CT angio abdomen pelvis CTA CHEST, ABDOMEN AND PELVIS WITH CONTRAST CLINICAL HISTORY: Follow-up thoracic and abdominal aortic aneurysms COMPARISON: 09/04/2024 TECHNIQUE: Spiral images were obtained through the chest, abdomen and pelvis following intravenous administration of 100 mL of Omnipaque 300. Images were reviewed using both narrow and wide window settings. Sagittal, coronal and 3 D volume-rendered reconstructions were performed and reviewed. This CT exam was performed using one or more following dose reduction techniques: Automated exposure control, adjustment of the mA and/or kV according to patient size, or use of iterative reconstruction technique. Atherosclerotic plaque is present throughout the thoracic and abdominal aorta as well as at the great vessels, visceral and iliac arteries. There is an aberrant right subclavian artery. The ascending aorta is normal in diameter. 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 Diameter in the lower thoracic region is approximately 5 cm AP which is similar. At the diaphragmatic hiatus AP diameter is 5.2 cm which is unchanged. The abdominal aorta is mildly tortuous. The maximum diameter is estimated at 6 cm which is also not significantly changed when measured at multiple comparable level. There is prominent mural thrombus through the aneurysm from just above the diaphragmatic hiatus down to the bifurcation of the abdominal aorta. The visceral arteries show normal opacification . Segments of mild and moderate stenosis are again seen. There is also opacification of the iliac arteries with continued stenosis. No periaortic fluid is identified. The heart is top normal in size. There is a trace amount of pericardial fluid. No pulmonary emboli are noted. Calcified mediastinal granulomas are seen. There is obstructive lung disease with airspace lucencies. Minor atelectasis and/or scarring is noted. There is no consolidation, pleural effusion or pneumothorax. There is a similar nodular density at the right middle lobe on axial image 51. Degenerative changes are present at the thoracic spine. The gallbladder is surgically absent. The common duct is prominent however no choledocholithiasis is seen. No intrahepatic masses are visualized. The spleen and pancreas show no acute findings. There is slight left adrenal limb thickening. The renal nephrograms are symmetric. No hydronephrosis is noted. There are no enlarged lymph nodes or ascites. Small bowel loops are not disproportionately distended. There is stool throughout the colon. A single ascending colonic diverticulum is seen. Lumbar levoscoliotic curvature and similar degenerative changes are present. There is an old L2 compression deformity. Images through the pelvis show nondistended small bowel. There is no appendiceal inflammation. There is mild distal colonic stool. There are some sigmoid diverticula, without associated active inflammation. The uterus is slightly levoverted. There are multiple myometrial calcifications suggesting fibroid disease. There is also redemonstration of a left adnexal cyst measuring roughly 6 cm in size which has not significantly changed. The urinary bladder is collapsed, limiting assessment. No ascites is seen. CT/CT angio chest IMPRESSION: DESCENDING THORACIC AND ABDOMINAL AORTIC ANEURYSMS WITH PROMINENT MURAL THROMBUS, SHOWING NO SIGNIFICANT INTERVAL CHANGE FROM THE COMPARISON. DIFFUSE ATHEROSCLEROTIC DISEASE. OBSTRUCTIVE LUNG DISEASE WITH MINOR ATELECTASIS OR SCARRING AND STABLE RIGHT MIDDLE LOBE NODULE. NO BOWEL OR URINARY TRACT OBSTRUCTION. DIVERTICULOSIS. FIBROID UTERUS AND SIMILAR LEFT ADNEXAL CYST. Impression dictated by: Patrizia Higgins M.D. 01/30/2025 9:36 AM Dictation Location: [place] [id number] Electronically authenticated by: [id number] Y Date: 01/30/2025 09:36
--- NOTE | 2025-01-30 08:40 | CT_ITS ---
The [address] [address] Patient Name: ADELA PARDO MRN: [id number] date: 1940 Sex: F Assigned Patient Location: CT Current Patient Location: CT Accession/Order Number: [id number] Exam Date: 01/30/2025 08:25 Report Date: 01/30/2025 09:36 At the request of: NATI CALDERON Procedure: CT angio abdomen pelvis CTA CHEST, ABDOMEN AND PELVIS WITH CONTRAST CLINICAL HISTORY: Follow-up thoracic and abdominal aortic aneurysms COMPARISON: 09/04/2024 TECHNIQUE: Spiral images were obtained through the chest, abdomen and pelvis following intravenous administration of 100 mL of Omnipaque 300. Images were reviewed using both narrow and wide window settings. Sagittal, coronal and 3 D volume-rendered reconstructions were performed and reviewed. This CT exam was performed using one or more following dose reduction techniques: Automated exposure control, adjustment of the mA and/or kV according to patient size, or use of iterative reconstruction technique. Atherosclerotic plaque is present throughout the thoracic and abdominal aorta as well as at the great vessels, visceral and iliac arteries. There is an aberrant right subclavian artery. The ascending aorta is normal in diameter. 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 Diameter in the lower thoracic region is approximately 5 cm AP which is similar. At the diaphragmatic hiatus AP diameter is 5.2 cm which is unchanged. The abdominal aorta is mildly tortuous. The maximum diameter is estimated at 6 cm which is also not significantly changed when measured at multiple comparable level. There is prominent mural thrombus through the aneurysm from just above the diaphragmatic hiatus down to the bifurcation of the abdominal aorta. The visceral arteries show normal opacification . Segments of mild and moderate stenosis are again seen. There is also opacification of the iliac arteries with continued stenosis. No periaortic fluid is identified. The heart is top normal in size. There is a trace amount of pericardial fluid. No pulmonary emboli are noted. Calcified mediastinal granulomas are seen. There is obstructive lung disease with airspace lucencies. Minor atelectasis and/or scarring is noted. There is no consolidation, pleural effusion or pneumothorax. There is a similar nodular density at the right middle lobe on axial image 51. Degenerative changes are present at the thoracic spine. The gallbladder is surgically absent. The common duct is prominent however no choledocholithiasis is seen. No intrahepatic masses are visualized. The spleen and pancreas show no acute findings. There is slight left adrenal limb thickening. The renal nephrograms are symmetric. No hydronephrosis is noted. There are no enlarged lymph nodes or ascites. Small bowel loops are not disproportionately distended. There is stool throughout the colon. A single ascending colonic diverticulum is seen. Lumbar levoscoliotic curvature and similar degenerative changes are present. There is an old L2 compression deformity. Images through the pelvis show nondistended small bowel. There is no appendiceal inflammation. There is mild distal colonic stool. There are some sigmoid diverticula, without associated active inflammation. The uterus is slightly levoverted. There are multiple myometrial calcifications suggesting fibroid disease. There is also redemonstration of a left adnexal cyst measuring roughly 6 cm in size which has not significantly changed. The urinary bladder is collapsed, limiting assessment. No ascites is seen. CT/CT angio abdomen pelvis IMPRESSION: DESCENDING THORACIC AND ABDOMINAL AORTIC ANEURYSMS WITH PROMINENT MURAL THROMBUS, SHOWING NO SIGNIFICANT INTERVAL CHANGE FROM THE COMPARISON. DIFFUSE ATHEROSCLEROTIC DISEASE. OBSTRUCTIVE LUNG DISEASE WITH MINOR ATELECTASIS OR SCARRING AND STABLE RIGHT MIDDLE LOBE NODULE. NO BOWEL OR URINARY TRACT OBSTRUCTION. DIVERTICULOSIS. FIBROID UTERUS AND SIMILAR LEFT ADNEXAL CYST. Impression dictated by: Patrizia Higgins M.D. 01/30/2025 9:36 AM Dictation Location: [place] [address] Electronically authenticated by: [id number] Y Date: 01/30/2025 09:36
== END 2025-01-30 07:43 | disposition home or self-care (01) ==
LOC: CT 07:42
PROVIDERS: PCP Family Medicine; Visit Provider Physician Assistant
DX: I71.20 Thoracic aortic aneurysm, without rupture, unspecified (principal); I71.40 Abdominal aortic aneurysm, without rupture, unspecified; K57.90 Diverticulosis of intestine, part unspecified, without perforation or abscess without bleeding; D25.9 Leiomyoma of uterus, unspecified
CPT/HCPCS: 36415; 71275; 74174; 82565; Q9967

== ENCOUNTER 2025-02-05 11:08 | Outpatient (OUT) | payer MEDICARE, OTHER, SELFPAY ==
--- OUTSIDE RECORDS SUMMARY | 2025-02-05 11:43 | XMS_ITS | CCD ---
Author Organization [facility] Care Team Providers Care Federal Agent Name Role Phone PHYSICIAN, DEFAULT Unavailable Unavailable PHYSICIAN, DEFAULT Unavailable Unavailable MARCK TATE Unavailable Unavailable HOY ., DR ACHARYA Admitting Unavailable HOY ., DR ACHARYA Attending Unavailable HOY ., DR ACHARYA Primary Care Unavailable HOY ., DR ACHARYA Consulting Unavailable [place], DR SANDOVAL Ferguson Consulting Unavailable HOY ., [...] Consulting Unavailable Marck Tate Primary Care Physician [phone] Marck Tate MD Unavailable JENA HICKS Referring Unavailable JENA HICKS Attending Unavailable CALE HOPE Attending Unavailable CALE HOPE Attending Unavailable Marck Tate MD Primary Care Provider [phone] TIMO CHAMPAGNE Attending Unavailable TIMO CHAMPAGNE [...] Medication Allergies] Propensity to adverse reactions (disorder) [facility] Repository Medications Current Medications Medication Drug Class(es) Dates Sig (Normalized) Sig (Original) amLODIPine 2.5 mg oral tablet (12 sources) Dihydropyridine Calcium Channel Yessica Start: 07-20-2024 take 1 tablet by mouth once daily Norvasc 2.5 mg Tab 2.5 mg = 1 tab(s), Oral, Daily, # 90 tab(s), Refills(s) 0, [facility][id number], 152, cm, 07/20/24 10:08:00 EST, Height/Length Dosing, [...] Daily, # 30 tab(s), Refills(s) 6, [id number], 152, cm, 12/16/23 15:27:00 EDT, Height/Length Dosing, 69.1, kg, 12/16/23 15:27:00 EDT, Weight Dosing Start Date: 12/19/23 Status: Ordered Quantity: 30.0 Unit: tab(s) Repeat number: 7 calcium carbonate (Tums) 250 mg ([place] 100 mg) chewable split tablet (6 sources) calcium carbonat e (Tums) 250 mg ([place] 100 mg) chewable split tablet Take 500 [...] Daily, # 90 tab(s), Refills(s) 0, [facility][id number], 152, cm, 07/20/24 10:08:00 EST, Height/Length Dosing, [...] Daily, # 30 tab(s), Refills(s) 6, [id number], 152, cm, 12/16/23 15:27:00 EDT, Height/Length Dosing, 69.1, kg, 12/16/23 15:27:00 EDT, Weight Dosing Start Date: 12/19/23 Status: Ordered Quantity: 30.0 Unit: tab(s) Repeat number: 7 Start: 12-16-2023 take 1 tablet by caty th once daily metoprolol succinate 25 mg ER Tab 25 mg = 1 tab(s), Oral, Daily, # 30 tab(s), Refills(s) 6, Pharmacy: [facility] #[id number], 152, cm, 12/16/23 15:27:00 EDT, Height/Length Dosing, [...] disease (7 sources) Atherosclerotic heart disease of [place] coronary artery without angina pectoris; Translations: [Coronary [...] as patient had to be rescheduled from [place]. At last visit, patient saw Dr. Vallejo [...] -see outside records Assessment/Plan 1. CAD in [place] artery (I25.10: Atherosclerotic heart disease of [place] coronary artery without angina pectoris) The patient has history of CAD with prior PCI. She also had a recent stress test that was positive and considered high risk due to large reversible defect. However, patient refused heart cath when proposed by Dr. Vallejo last month last month. Again asked (more content not included)... Normal [facility] Comment on above: Result Comment: [...] as patient had to be rescheduled from [place]. At last visit, patient saw Dr. Vallejo [...] -see outside records Assessment/Plan 1. CAD in [place] artery (I25.10: Atherosclerotic heart disease of [place] coronary artery without angina pectoris) The patient [...] with voice recognition artificial intelligence software, specifically Autobutler, uStudio and or TuVox. Substitutions may have occurred due to the inherent limitations of voice recognition and artificial intelligence software. Follow-up No qualifying data available Problem List/Past Medical History Ongoing AAA (abdominal aortic aneurysm) CAD in [place] artery HTN (hypertension) Historical No qualifying data [...] mg= 1 (more content not included)... Normal [facility] Comment on above: Result Comment: [...] II, MD, PHD at 09-Aug-2024 08:45:09 AM [facility] Normal Not Available Comment on above: [...] as indicated. [1] Assessment/Plan 1. CAD in [place] artery (I25.10: Atherosclerotic heart disease of [place] coronary artery without angina pectoris) Exertional dyspnea [...] A PONCE (more content not included)... Normal [facility] Comment on above: Result Comment: Elec tronically Signed By: Genevieve CURRIE, Tam Spain\.br\Date and Time Signed: 07/20/24 10:27 EST Office Visiton 01-20-2024 Follow-up visit [id number] Beth Starkey 1940 F Date Provider Department Center 01/20/2024 [id number]-YKRHBZCALE HOPE MONSE Delgado [facility] Family History Problem Relation Age of Onset Heart attack Father Diabetes Sister Coronary artery disease Brother Aneurysm Brother Diabetes Brother Family Status - Relation Status Age at Father Sister Brother Level of Service:56679 [place] OFFICE/OUTPATIENT ESTABLISHED MOD MDM 30 MIN Reason for Visit and Comments: Hyperlipidemia [182] Hypertension [573227] - Pt had a abnormal stress. Patient used the restroom in the ED right before apt and had a fall. She denies lightheadedness/dizz iness and syncope. She denies hiting her head. Shortness of Breath [952423] Normal [facility] Office Visiton 01-09-2024 Follow-up visit [id number] Beth Starkey 1940 F Date Provider Department Center 01/09/2024 48202-MSSFVS, SAMDANNIELLE MONSE Delgado [facility] Family History Problem Relation Age of Onset Heart attack Father Diabetes Sister Coronary artery disease Brother Aneurysm Brother Diabetes Brother Family Status - Relation Status Age at Father Sister Brother Level of Service:06500 LA OFFICE/OUTPATIENT NEW MODERATE MDM 45 MINUTES Reason [...] aneurysm, without rupture, unspecified) 2. CAD in [place] artery (I25.10: Atherosclerotic heart disease of [place] coronary artery without angina pectoris) 3. HTN [...] CURRIE, Edinson Kuhn 09/24/2022 10:55 EDT Normal [facility] Comment on above: Result Comment: Elec tronically Signed By: Genevieve CURRIE, Tam Spain\.ede\Date and Time Signed: 12/16/23 15:48 EDT REILLYon 05-03-2023 CNDANIEL Office Visit (YURI) BETH STARKEY ([id number]) 1940 F Date Time Provider Department 05/03/23 12:00 PM JENA HICKS During your visit today, we recorded the following information about you: Temperature Pulse Respiration Blood pressure 98.3 degrees 86/minute 16/minute 103/59 Weight Height 65.8 kg 1.524 m Jena Hicks MD 05/03/2023 3:31 PM Signed [facility]ASCULAR [facility]GERY OUTPATIENT VISIT DATE [...] (more content not included)... Normal [facility] CTA ABD/PELV WO/W IVCONon CTA ABD/PELV WO/W IVCON * * *Final Report* * * DATE OF EXAM: May 03 2023 1:27PM [facility] 0467 - CTA ABD/PELV WO/W IVCON / [...] stable BONES: degenerative changes of the spine Encyclopedia Research Worker (topogram) images: No additional findings. IMPRESSION: * [...] not included)... Invalid Interpretation Code [facility] CTA CHEST (NONGATED) WO/W IV CONon 05-03-2023 CTA CHEST (NONGATED) WO/W IVCON * * *Final Report* * * DATE OF EXAM: May 03 2023 1:27PM [facility] 0124 - CTA CHEST (NONGATED) WO/W IVCON [...] stable BONES: degenerative changes of the spine Encyclopedia Research Worker (topogram) images: No additional findings. IMPRESSION: * [...] not included)... Invalid Interpretation Code [facility] HISTORY PHYSICALon HISTORY PHYSICAL HNO ID: [id number] Author: Jena Hicks MD Service: ? Author Type: Physician Type: HANDP Filed: 05/03/2023 3:31 PM Note Text: [facility]PART[facility] OF [facility]ASCULAR [facility]GERY OUTPATIENT VISIT DATE [...] (more content not included)... Normal [facility] 04-25-2023 [facility] Telephone (PODCCP) BETH STARKEY ([id number]) 1940 F Date Time Provider Department 04/25/23 NO PCP PODCCP During your visit today, we recorded the following information about you: Med Quiros 04/25/2023 4:23 PM Signed Reason for call: Ms Starkey called,and she would like to schedule an appointment with vascular surgery Referred by Dr Judit [facility] and cell number: [phone] Diagnosis: AAA Kind Regards Med Allergies As of Date: 04/25/2023 (Not on File) Date Reviewed: Never Reviewed Reason for Visit: Appointment [186] Problem List As Of Date: 04/25/2023 (None) Encounter Status:Closed by MED QUIROS on 04/25/23 [facility]20[facility]REF[facility] BETH STARKEY ([id number]) 1940 F Date Time Provider Department 04/22/23 NO ONE (HISTORICAL) REFPHY During your visit today, we recorded the following information about you: Patrizia Orozco 04/22/2023 10:06 AM Signed Patient: Beth Starkey Date of : 1940 Patient phone number: [phone] Referring Provider for the encounter: Marck Tate [...] Status:Closed by PATRIZIA OROZCO on 04/22/23 Normal [facility] CHEMISTRYOrdered By: SYSTEM SYSTEM on 09-24-2022 Creatinine [Mass/Vol] 0.8 mg/dL Normal 0.5 - 1.3 mg/dL [facility] Remisol GFR/1.73 sq M.predicted among non-blacks MDRD (S/P/Bld) [Vol rate/Area] 74 mL/min/1.73 m2 Normal >=59mL/min/1. 73 m2 [facility] Chem S CT CHEST WO CONon 08-02-2022 [...] KAYY KAUR Date: 2022-08-02 10:52 Normal [facility] C. DIFF PCRon 07-28-2022 C. DIFFICILE PCR Negative Normal NEGATIVE [facility] Comment on above: Performed By: #### C DIFPOC #### [facility] [address] [place] [address] Dr. Spencer Braun OCC BLD IMMUNO SCREENon OCCULT BLOOD Negative Normal NEGATIVE [facility] Comment on above: Performed By: #### C BC #### [facility] [address] [place] [address] Dr. Spencer Braun INSULINon 07-15-2022 Insulin 17.7 uIU/mL Normal 2.6-24.9 [facility] Comment on above: Performed By: #### I NSULIN ####[facility] [address] [place] [address]Dr. Spencer Braun BNPon 07-14-2022 Natriuretic peptide B (Bld) [Mass/Vol] 197.0 pg/mL Normal <=1,800.0 [facility] Comment on above: Performed By: #### B SOCIAL SERVICE DIRECTOR, LIPID, CMP, T7, TSH #### [facility] [address] [address] [address] Spencer Braun CBC AUTO DIFFon 07-14-2022 BASO # 0.1 103/ul Normal 0.0-0.1 [facility] Comment on above: Performed By: #### C BC #### [facility] [address] [place] [address] Dr. Spencer Braun Basophils/100 WBC (Bld) 0.9 % Normal 0.2-2.0 [facility] Comment on above: Performed By: #### C BC #### [facility] [address] [place] [address] Dr. Spencer Braun EO # 0.2 103/ul Normal 0.0-0.7 [facility] Comment on above: Performed By: #### C BC #### [facility] [address] [place] [address] Dr. Spencer Braun Eosinophils/100 WBC (Bld) 2.5 % Normal 0.9-7.0 [facility] Comment on above: Performed By: #### C BC #### [facility] [address] [place] [address] Dr. Spencer Braun Erythrocyte distribution width (RBC) [Ratio] 13.8 % Normal 11.0-15.0 [facility] Comment on above: Performed By: #### C BC #### [facility] [address] [place] [address] Dr. Spencer Braun Hematocrit (Bld) [Volume fraction] 45.1 % Normal 36.0-48.0 [facility] Comment on above: Performed By: #### C BC #### [facility] [address] [place] [address] Dr. Spencer Braun Hemoglobin (Bld) [Mass/Vol] 14.7 g/dL Normal 12.0-16.0 [facility] Comment on above: Performed By: #### C BC #### [facility] [address] [place] [address] Dr. Spencer Braun IG # 0.04 10e3/ul Critically high 0.00-0.03 [facility] Comment on above: Performed By: #### C BC #### [facility] [address] [place] [address] Dr. Spencer Braun IG % 0.5 % Normal 0.0-0.5 [facility] Comment on above: Performed By: #### C BC #### [facility] [address] [place] [address] Dr. Spencer Braun LYMPH # 1.6 103/ul Normal 1.2-3.8 [facility] Comment on above: Performed By: #### C BC #### [facility] [address] [place] [address] Dr. Spencer Braun Lymphocytes/100 WBC (Bld) 20.4 % Critically low 20.5-60.0 [facility] Comment on above: Performed By: #### C BC #### [facility] [address] [place] [address] Dr. Spencer Braun MANUAL DIFF REQ NO Normal [facility] Comment on above: Performed By: #### C BC #### [facility] [address] [place] [address] Dr. Spencer Braun MCH (RBC) [Entitic mass] 28.8 pg Normal 26.7-34.0 [facility] Comment on above: Performed By: #### C BC #### [facility] [address] [place] [address] Dr. Spencer Braun MCHC (RBC) [Mass/Vol] 32.6 g/dL Normal 29.9-35.2 [facility] Comment on above: Performed By: #### C BC #### [facility] [address] [place] [address] Dr. Spencer Braun MCV (RBC) [Entitic vol] 88.3 fL Normal 81.0-99.0 [facility] Comment on above: Performed By: #### C BC #### [facility] [address] [place] [address] Dr. Spencer Braun MONO # 0.5 103/ul Normal 0.3-0.8 [facility] Comment on above: Performed By: #### C BC #### [facility] [address] [place] [address] Dr. Spencer Braun Monocytes/100 WBC (Bld) 6.5 % Normal 1.7-12.0 [facility] Comment on above: Performed By: #### C BC #### [facility] [address] [place] [address] Dr. Spencer Braun NEUT # 5.4 103/ul Normal 1.4-6.5 [facility] Comment on above: Performed By: #### C BC #### [facility] [address] [address] [address] Spencer Braun Neutrophils/100 WBC (Bld) 69.2 % Normal 43.0-75.0 [facility] Comment on above: Performed By: #### C BC #### [facility] [address] [address] [address] Spencer Braun Platelet mean volume (Bld) [Entitic vol] 9.1 fL Critically low 9.5-13.5 [facility] Comment on above: Performed By: #### C BC #### [facility] [address] [address] [address] Spencer Braun PLT 190 103/ul Normal 150-450 [facility] Comment on above: Performed By: #### C BC #### [facility] [address] [place] [address] Dr. Spencer Braun RBC 5.11 106/ul Normal 4.20-5.40 [facility] Comment on above: Performed By: #### C BC #### [facility] [address] [address] [address] Spencer Braun WBC 7.7 103/ul Normal 4.0-11.0 [facility] Comment on above: Performed By: #### C BC #### [facility] [address] [address] [address] Spencer Braun FREE THYROXINE INDEX T7on FTI 2.87 Normal 1.30-4.50 [facility] Comment on above: Performed By: #### B SOCIAL SERVICE DIRECTOR, LIPID, CMP, T7, TSH ####[facility] [address] [place] [id number]. Spencer Braun T3U 33.0 % Normal 30.0-39.0 [facility] Comment on above: Performed By: #### B SOCIAL SERVICE DIRECTOR, LIPID, CMP, T7, TSH ####[facility] [address] [place] [id number]. Spencer Braun T4 [Mass/Vol] 8.70 ug/dL Normal 4.80-13.90 [facility] Comment on above: Performed By: #### B SOCIAL SERVICE DIRECTOR, LIPID, CMP, T7, TSH ####[facility] [address] [place], [place] [address]VnManish Braun GLYCOHEMOGLOBIN A1Con 2022 ADA RECOMMENDATION SEE BELOW Normal [facility] Comment on above: Result Comment: ADA RECOMMENDED LIMIT 4.0 - 6.0 ADA THERAPEUTIC TARGET < 7.0 ACTION SUGGESTED > 7.0 Performed By: #### A 1C ####[facility] [address] [place] [id number] Braun Glucose [Mass/Vol] 123 mg/dL Normal [facility] Comment on above: Performed By: #### A 1C ####[facility] [address] [place] [id number] Braun HbA1c (Bld) [Mass fraction] 5.9 % Normal 4.5-6.2 [facility] Comment on above: Performed By: #### A 1C ####[facility] [address] [place] [id number] Braun IRONon 07-14-2022 Iron [Mass/Vol] 70.0 ug/dL Normal 50.0-170.0 [facility] Comment on above: Performed By: #### V ITAD, IRON #### [facility] [address] [place], [place] [address] Dr. Spencer Braun LIPID PROFILEon 07-14-2022 CHOL-HDL RATIO NORM SEE BELOW Normal [facility] Comment on above: Result Comment: 3.3 - 4.4 LOW RISK 4.4 - 7.1 AVERAGE RISK 7.1 - 11.0 MODERATE RISK >11.0 HIGH RISK Performed By: #### B SOCIAL SERVICE DIRECTOR, LIPID, CMP, T7, TSH ####[facility] [address] [place], [place] [address]OuManish Braun Cholesterol [Mass/Vol] 180 mg/dL Normal <=200 [facility] Comment on above: Performed By: #### B SOCIAL SERVICE DIRECTOR, LIPID, CMP, T7, TSH ####[facility] [address] [place] [id number] Braun Cholesterol in HDL [Mass/Vol] 50 mg/dL Normal 40-60 [facility] Comment on above: Performed By: #### B SOCIAL SERVICE DIRECTOR, LIPID, CMP, T7, TSH ####[facility] [address] [place] [address]Dr. Spencer Braun Cholesterol in LDL [Mass/Vol] 105.8 mg/dL Normal [facility] Comment on above: Performed By: #### B SOCIAL SERVICE DIRECTOR, LIPID, CMP, T7, TSH ####[facility] [address] [place] [id number]. Spencer Braun Cholesterol.total/Ch olesterol in HDL [Mass ratio] 3.6 {ratio} Normal [facility] Comment on above: Performed By: #### B SOCIAL SERVICE DIRECTOR, LIPID, CMP, T7, TSH ####[facility] [address] [place] [address]Dr. Spencer Braun HDL NORMAL > or = 60 mg/dl - LOW CARDIOVASCULAR RISK <40 mg/dl - HIGH CARDIOVASCULAR RISK Normal [facility] Comment on above: Performed By: #### B SOCIAL SERVICE DIRECTOR, LIPID, CMP, T7, TSH ####[facility] [address] [place] [address]Dr. Spencer Braun LDL CALC NORMAL SEE BELOW Normal [facility] Comment on above: Result Comment: <100 mg/dl OPTIMAL 100 - 129 mg/dl NEAR OR ABOVE OPTIMAL 130 - 159 mg/dl BORDERLINE HIGH 160 - 189 mg/dl HIGH >190 mg/dl VERY HIGH Performed By: #### B SOCIAL SERVICE DIRECTOR, LIPID, CMP, T7, TSH ####[facility] [address] [place] [id number]. Spencer Braun Triglyceride [Mass/Vol] 121 mg/dL Normal <=150 [facility] Comment on above: Performed By: #### B SOCIAL SERVICE DIRECTOR, LIPID, CMP, T7, TSH ####[facility] [address] [place] [address]Dr. Spencer Braun VLDL CALC 24.2 mg/dL Normal [facility] Comment on above: Performed By: #### B SOCIAL SERVICE DIRECTOR, LIPID, CMP, T7, TSH ####[facility] [address] [place] [address]Dr. Spencer Braun PROF 14(COMP METB)on 023 Albumin [Mass/Vol] 3.8 g/dL Normal 3.4-5.0 [facility] Comment on above: Performed By: #### B SOCIAL SERVICE DIRECTOR, LIPID, CMP, T7, TSH #### [facility] [address] [address] [address] Spencer Braun Albumin/Globulin [Mass ratio] 1.0 {ratio} Normal [facility] Comment on above: Performed By: #### B SOCIAL SERVICE DIRECTOR, LIPID, CMP, T7, TSH #### [facility] [address] [place] [address] Dr. Spencer Braun ALP [Catalytic activity/Vol] 135 U/L Critically high 46-116 [facility] Comment on above: Performed By: #### B SOCIAL SERVICE DIRECTOR, LIPID, CMP, T7, TSH #### [facility] [address] [place] [address] Dr. Spencer Braun ALT [Catalytic activity/Vol] 20 U/L Normal 14-59 [facility] Comment on above: Performed By: #### B SOCIAL SERVICE DIRECTOR, LIPID, CMP, T7, TSH #### [facility] [address] [address] [address] Spencer Braun Anion gap [Moles/Vol] 8.4 mmol/L Normal [facility] Comment on above: Performed By: #### B SOCIAL SERVICE DIRECTOR, LIPID, CMP, T7, TSH #### [facility] [address] [place] [address] Dr. Spencer Braun AST [Catalytic activity/Vol] 14 U/L Critically low 15-37 [facility] Comment on above: Performed By: #### B SOCIAL SERVICE DIRECTOR, LIPID, CMP, T7, TSH #### [facility] [address] [address] [address] Spencer Braun Bilirubin [Mass/Vol] 0.4 mg/dL Normal 0.2-1.0 [facility] Comment on above: Performed By: #### B SOCIAL SERVICE DIRECTOR, LIPID, CMP, T7, TSH #### [facility] [address] [place] [address] Dr. Spencer Braun Calcium [Mass/Vol] 9.5 mg/dL Normal 8.5-10.1 [facility] Comment on above: Performed By: #### B SOCIAL SERVICE DIRECTOR, LIPID, CMP, T7, TSH #### [facility] [address] [place] [address] Dr. Spencer Braun Chloride [Moles/Vol] 104 mmol/L Normal 98-107 [facility] Comment on above: Performed By: #### B SOCIAL SERVICE DIRECTOR, LIPID, CMP, T7, TSH #### [facility] [address] [place] [address] Dr. Spencer Braun CO2 [Moles/Vol] 32.0 mmol/L Normal 21.0-32.0 [facility] Comment on above: Performed By: #### B SOCIAL SERVICE DIRECTOR, LIPID, CMP, T7, TSH #### [facility] [address] [place] [address] Dr. Spencer Braun Creatinine [Mass/Vol] 0.72 mg/dL Normal 0.55-1.02 [facility] Comment on above: Performed By: #### B SOCIAL SERVICE DIRECTOR, LIPID, CMP, T7, TSH #### [facility] [address] [place] [address] Dr. Spencer Braun EGFR-AF DANISH >60 Normal >=60 [facility] Comment on above: Performed By: #### B SOCIAL SERVICE DIRECTOR, LIPID, CMP, T7, TSH #### [facility] [address] [place] [address] Dr. Spencer Braun EGFR-NON AF DANISH >60 Normal >=60 [facility] Comment on above: Performed By: #### B SOCIAL SERVICE DIRECTOR, LIPID, CMP, T7, TSH #### [facility] [address] [place] [address] Dr. Spencer Braun Globulin (S) [Mass/Vol] 3.9 g/dL Normal [facility] Comment on above: Performed By: #### B SOCIAL SERVICE DIRECTOR, LIPID, CMP, T7, TSH #### [facility] [address] [place] [address] Dr. Spencer Braun Glucose [Mass/Vol] 127 mg/dL Critically high 74-106 [facility] Comment on above: Performed By: #### B SOCIAL SERVICE DIRECTOR, LIPID, CMP, T7, TSH #### [facility] [address] [place] [address] Dr. Spencer Braun Potassium [Moles/Vol] 4.4 mmol/L Normal 3.5-5.1 [facility] Comment on above: Performed By: #### B SOCIAL SERVICE DIRECTOR, LIPID, CMP, T7, TSH #### [facility] [address] [place] [address] Dr. Spencer Braun Protein [Mass/Vol] 7.7 g/dL Normal 6.4-8.2 [facility] Comment on above: Performed By: #### B SOCIAL SERVICE DIRECTOR, LIPID, CMP, T7, TSH #### [facility] [address] [place] [address] Dr. Spencer Braun Sodium [Moles/Vol] 140 mmol/L Normal 136-145 [facility] Comment on above: Performed By: #### B SOCIAL SERVICE DIRECTOR, LIPID, CMP, T7, TSH #### [facility] [address] [place] [address] Dr. Spencer Braun Urea nitrogen [Mass/Vol] 18.0 mg/dL Normal 7.0-18.0 [facility] Comment on above: Performed By: #### B SOCIAL SERVICE DIRECTOR, LIPID, CMP, T7, TSH #### [facility] [address] [place] [address] Dr. Spencer Braun Urea nitrogen/Creatinine [Mass ratio] 25.0 mg/mg Normal [facility] Comment on above: Performed By: #### B SOCIAL SERVICE DIRECTOR, LIPID, CMP, T7, TSH #### [facility] [address] [place] [address] Dr. Spencer Braun TSHon 07-14-2022 TSH 1.760 uIU/mL Normal 0.358-3.740 [facility] Comment on above: Performed By: #### B SOCIAL SERVICE DIRECTOR, LIPID, CMP, T7, TSH #### [facility] [address] [place] [address] Dr. Spencer Braun VITAMIN D 25 OHon 07-14-2022 VIT D 25-OH 85.7 ng/mL Normal [facility] Comment on above: Performed By: #### V ITAD, IRON #### [facility] [address] [place] [address] Dr. Spencer Braun VIT D RANGES SEE BELOW Normal [facility] Comment on above: Result Comment: <20 ng/mL Vit D deficient 20 - <30 ng/mL Vit D insufficient 30 - 100 ng/mL Vit D sufficient >100 ng/mL Potential Toxicity Performed By: #### V ITAD, IRON #### [facility] [address] [place] [address] Dr. Spencer Braun CBC AUTO DIFFon 04-30-2022 BASO # 0.1 103/ul Normal 0.0-0.1 [facility] Comment on above: Performed By: #### C BC #### [facility] [address] [place] [address] Dr. Spencer Braun Basophils/100 WBC (Bld) 0.9 % Normal 0.2-2.0 [facility] Comment on above: Performed By: #### C BC #### [facility] [address] [place] [address] Dr. Spencer Braun EO # 0.2 103/ul Normal 0.0-0.7 [facility] Comment on above: Performed By: #### C BC #### [facility] [address] [place] [address] Dr. Spencer Braun Eosinophils/100 WBC (Bld) 2.1 % Normal 0.9-7.0 [facility] Comment on above: Performed By: #### C BC #### [facility] [address] [place] [address] Dr. Spencer Braun Erythrocyte distribution width (RBC) [Ratio] 13.9 % Normal 11.0-15.0 [facility] Comment on above: Performed By: #### C BC #### [facility] [address] [place] [address] Dr. Spencer Braun Hematocrit (Bld) [Volume fraction] 46.2 % Normal 36.0-48.0 [facility] Comment on above: Performed By: #### C BC #### [facility] [address] [place] [address] Dr. Spencer Braun Hemoglobin (Bld) [Mass/Vol] 15.1 g/dL Normal 12.0-16.0 [facility] Comment on above: Performed By: #### C BC #### [facility] [address] [place] [address] Dr. Spencer Braun IG # 0.05 10e3/ul Critically high 0.00-0.03 [facility] Comment on above: Performed By: #### C BC #### [facility] [address] [place] [address] Dr. Spencer Braun IG % 0.6 % Critically high 0.0-0.5 [facility] Comment on above: Performed By: #### C BC #### [facility] [address] [place] [address] Dr. Spencer Braun LYMPH # 1.7 103/ul Normal 1.2-3.8 [facility] Comment on above: Performed By: #### C BC #### [facility] [address] [place] [address] Dr. Spencer Braun Lymphocytes/100 WBC (Bld) 20.3 % Critically low 20.5-60.0 [facility] Comment on above: Performed By: #### C BC #### [facility] [address] [place] [address] Dr. Spencer Braun MANUAL DIFF REQ NO Normal [facility] Comment on above: Performed By: #### C BC #### [facility] [address] [place] [address] Dr. Spencer Braun MCH (RBC) [Entitic mass] 28.8 pg Normal 26.7-34.0 [facility] Comment on above: Performed By: #### C BC #### [facility] [address] [place] [address] Dr. Spencer Braun MCHC (RBC) [Mass/Vol] 32.7 g/dL Normal 29.9-35.2 [facility] Comment on above: Performed By: #### C BC #### [facility] [address] [place] [address] Dr. Spencer Braun MCV (RBC) [Entitic vol] 88.2 fL Normal 81.0-99.0 [facility] Comment on above: Performed By: #### C BC #### [facility] [address] [address] [address] Spencer Braun MONO # 0.6 103/ul Normal 0.3-0.8 [facility] Comment on above: Performed By: #### C BC #### [facility] [address] [address] [address] Spencer Braun Monocytes/100 WBC (Bld) 7.1 % Normal 1.7-12.0 [facility] Comment on above: Performed By: #### C BC #### [facility] [address] [place] [address] Dr. Spencer Braun NEUT # 5.7 103/ul Normal 1.4-6.5 [facility] Comment on above: Performed By: #### C BC #### [facility] [address] [place] [address] Dr. Spencer Braun Neutrophils/100 WBC (Bld) 69.0 % Normal 43.0-75.0 [facility] Comment on above: Performed By: #### C BC #### [facility] [address] [place] [address] Dr. Spencer Braun Platelet mean volume (Bld) [Entitic vol] 9.2 fL Critically low 9.5-13.5 [facility] Comment on above: Performed By: #### C BC #### [facility] [address] [place] [address] Dr. Spencer Braun PLT 180 103/ul Normal 150-450 [facility] Comment on above: Performed By: #### C BC #### [facility] [address] [place] [address] Dr. Spencer Braun RBC 5.24 106/ul Normal 4.20-5.40 [facility] Comment on above: Performed By: #### C BC #### [facility] [address] [place] [address] Dr. Spencer Braun WBC 8.2 103/ul Normal 4.0-11.0 [facility] Comment on above: Performed By: #### C BC #### [facility] [address] [place], [place] [address] Dr. Spencer Braun FREE T3on 04-30-2022 FREE T3 2.98 pg/mlL Normal 2.18-3.98 [facility] Comment on above: Performed By: #### L IPID, TSH, T4, FT3, CMP ####[facility] [address] [id number] Braun GLYCOHEMOGLOBIN A1Con 2021 ADA RECOMMENDATION SEE BELOW Normal [facility] Comment on above: Result Comment: ADA RECOMMENDED LIMIT 4.0 - 6.0 ADA THERAPEUTIC TARGET < 7.0 ACTION SUGGESTED > 7.0 Performed By: #### A 1C ####[facility] [address] [address]DrManish Braun Glucose [Mass/Vol] 134 mg/dL Normal [facility] Comment on above: Performed By: #### A 1C ####[facility] [address] [address]DrManish Braun HbA1c (Bld) [Mass fraction] 6.3 % Critically high 4.5-6.2 [facility] Comment on above: Performed By: #### A 1C ####[facility] [address] [address]Dr. Spencer Braun LIPID PROFILEon 04-30-2022 CHOL-HDL RATIO NORM SEE BELOW Normal [facility] Comment on above: Result Comment: 3.3 - 4.4 LOW RISK 4.4 - 7.1 AVERAGE RISK 7.1 - 11.0 MODERATE RISK >11.0 HIGH RISK Performed By: #### L IPID, TSH, T4, FT3, CMP ####[facility] [address] [id number] Braun Cholesterol [Mass/Vol] 177 mg/dL Normal <=200 [facility] Comment on above: Performed By: #### L IPID, TSH, T4, FT3, CMP ####[facility] [address] [id number] Braun Cholesterol in HDL [Mass/Vol] 56 mg/dL Normal 40-60 [facility] Comment on above: Performed By: #### L IPID, TSH, T4, FT3, CMP ####[facility] [address] [address]Dr. Spencer Braun Cholesterol in LDL [Mass/Vol] 97.8 mg/dL Normal [facility] Comment on above: Performed By: #### L IPID, TSH, T4, FT3, CMP ####[facility] [address] [address]Dr. Spencer Braun Cholesterol.total/Ch olesterol in HDL [Mass ratio] 3.2 {ratio} Normal [facility] Comment on above: Performed By: #### L IPID, TSH, T4, FT3, CMP ####[facility] [address] [place], [place] [address]Dr. Spencer Braun HDL NORMAL > or = 60 mg/dl - LOW CARDIOVASCULAR RISK <40 mg/dl - HIGH CARDIOVASCULAR RISK Normal [facility] Comment on above: Performed By: #### L IPID, TSH, T4, FT3, CMP ####[facility] [address] [place], [place] [address]Dr. Spencer Braun LDL CALC NORMAL SEE BELOW Normal [facility] Comment on above: Result Comment: <100 mg/dl OPTIMAL 100 - 129 mg/dl NEAR OR ABOVE OPTIMAL 130 - 159 mg/dl BORDERLINE HIGH 160 - 189 mg/dl HIGH >190 mg/dl VERY HIGH Performed By: #### L IPID, TSH, T4, FT3, CMP ####[facility] [address] [address]Dr. Spencer Braun Triglyceride [Mass/Vol] 116 mg/dL Normal <=150 [facility] Comment on above: Performed By: #### L IPID, TSH, T4, FT3, CMP ####[facility] [address] [place], [place] [address]Dr. Spencer Braun VLDL CALC 23.2 mg/dL Normal [facility] Comment on above: Performed By: #### L IPID, TSH, T4, FT3, CMP ####[facility] [address] [address]Dr. Spencer Braun PROF 14(COMP METB)on 022 Albumin [Mass/Vol] 3.8 g/dL Normal 3.4-5.0 [facility] Comment on above: Performed By: #### L IPID, TSH, T4, FT3, CMP ####[facility] [address] [address]Dr. Spencer Braun Albumin/Globulin [Mass ratio] 0.9 {ratio} Normal [facility] Comment on above: Performed By: #### L IPID, TSH, T4, FT3, CMP ####[facility] [address] [address]Dr. Spencer Braun ALP [Catalytic activity/Vol] 143 U/L Critically high 46-116 [facility] Comment on above: Performed By: #### L IPID, TSH, T4, FT3, CMP ####[facility] [address] [place], [place] [address]Dr. Spencer Braun ALT [Catalytic activity/Vol] 19 U/L Normal 14-59 [facility] Comment on above: Performed By: #### L IPID, TSH, T4, FT3, CMP ####[facility] [address] [address]Dr. Spencer Braun Anion gap [Moles/Vol] 12.1 mmol/L Normal [facility] Comment on above: Performed By: #### L IPID, TSH, T4, FT3, CMP ####[facility] [address] [place], [place] [address]Dr. Spencer Braun AST [Catalytic activity/Vol] 17 U/L Normal 15-37 [facility] Comment on above: Performed By: #### L IPID, TSH, T4, FT3, CMP ####[facility] [address] [place], [place] [address]Dr. Spencer Braun Bilirubin [Mass/Vol] 0.3 mg/dL Normal 0.2-1.0 [facility] Comment on above: Performed By: #### L IPID, TSH, T4, FT3, CMP ####[facility] [address] [address]Dr. Spencer Braun Calcium [Mass/Vol] 9.5 mg/dL Normal 8.5-10.1 [facility] Comment on above: Performed By: #### L IPID, TSH, T4, FT3, CMP ####[facility] [address] [address]Dr. Spencer Braun Chloride [Moles/Vol] 102 mmol/L Normal 98-107 [facility] Comment on above: Performed By: #### L IPID, TSH, T4, FT3, CMP ####[facility] [address] [address]Dr. Spencer Braun CO2 [Moles/Vol] 32.6 mmol/L Critically high 21.0-32.0 [facility] Comment on above: Performed By: #### L IPID, TSH, T4, FT3, CMP ####[facility] [address] [place], [place] [address]Dr. Spencer Braun Creatinine [Mass/Vol] 0.69 mg/dL Normal 0.55-1.02 [facility] Comment on above: Performed By: #### L IPID, TSH, T4, FT3, CMP ####[facility] [address] [place], [place] [address]Dr. Spencer Braun EGFR-AF DANISH >60 Normal >=[address] [facility] Comment on above: Performed By: #### L IPID, TSH, T4, FT3, CMP ####[facility] [address] [place], [place] [address]Dr. Spencer Braun EGFR-NON AF DANISH >60 Normal >=60 [facility] Comment on above: Performed By: #### L IPID, TSH, T4, FT3, CMP ####[facility] [address] [place], [place] [address]Dr. Spencer Braun Globulin (S) [Mass/Vol] 4.1 g/dL Normal [facility] Comment on above: Performed By: #### L IPID, TSH, T4, FT3, CMP ####[facility] [address] [address]Dr. Spencer Braun Glucose [Mass/Vol] 108 mg/dL Critically high 74-106 [facility] Comment on above: Performed By: #### L IPID, TSH, T4, FT3, CMP ####[facility] [address] [place], [place] [address]Dr. Spencer Braun Potassium [Moles/Vol] 4.7 mmol/L Normal 3.5-5.1 [facility] Comment on above: Performed By: #### L IPID, TSH, T4, FT3, CMP ####[facility] [address] [place], [place] [address]Dr. Spencer Braun Protein [Mass/Vol] 7.9 g/dL Normal 6.4-8.2 [facility] Comment on above: Performed By: #### L IPID, TSH, T4, FT3, CMP ####[facility] [address] [place], [place] [address]Dr. Spencer Braun Sodium [Moles/Vol] 142 mmol/L Normal 136-145 [facility] Comment on above: Performed By: #### L IPID, TSH, T4, FT3, CMP ####[facility] [address] [place], [place] [address]Dr. Spencer Braun Urea nitrogen [Mass/Vol] 19.0 mg/dL Critically high 7.0-18.0 [facility] Comment on above: Performed By: #### L IPID, TSH, T4, FT3, CMP ####[facility] [address] [place], [place] [address]Dr. Spencer Braun Urea nitrogen/Creatinine [Mass ratio] 27.5 mg/mg Normal [facility] Comment on above: Performed By: #### L IPID, TSH, T4, FT3, CMP ####[facility] [address] [place], [place] [address]Dr. Spencer Braun T4on 04-30-2022 T4 [Mass/Vol] 8.30 ug/dL Normal 4.80-13.90 [facility] Comment on above: Performed By: #### L IPID, TSH, T4, FT3, CMP ####[facility] [address] [place], [place] [address]UqManish Braun TSHon 04-30-2022 TSH 1.777 uIU/mL Normal 0.358-3.740 [facility] Comment on above: Performed By: #### L IPID, TSH, T4, FT3, CMP ####[facility] [address] [place], [place] [address]OnManish Braun VITAMIN D 25 OHon 04-30-2022 VIT D 25-OH 72.1 ng/mL Normal [facility] Comment on above: Performed By: #### V ITAD #### [facility] [address] [address] [address] Spencer Braun VIT D RANGES SEE BELOW Normal [facility] Comment on above: Result Comment: <20 ng/mL Vit D deficient 20 - <30 ng/mL Vit D insufficient 30 - 100 ng/mL Vit D sufficient >100 ng/mL Potential Toxicity Performed By: #### V ITAD #### [facility] [address] [place], [place] [address] Dr. Spencer Braun MG MAMM SCREEN 3D AWAIS CADon 02-16-2022 MG MAMM SCREEN 3D AWAIS CAD Patient: BETH STARKEY Exam Date: 02/16/2022 : 1940 Gender:F Ordering : DR MARCK TATE . Admission #: [id number] Family : Order #: [id number] CLICK HERE TO VIEW EXAM RADIOLOGY REPORT [...] prostate cancer at age 71. LOCATION: [facility] BREAST COMPOSITION: Heterogeneously dense,which may obscure [...] MD on 02/17/2022 at 07:39 Normal [facility] Vital Signs Date Time Vital Sign Value Performing Clinician Tony jenkins 09-28-2024 14:15-0400 Measurement/Vitals Comment Unable to obtain; Telephone visit. Nati ePtty [facility] 08-15-2024 14:13-0400 Body mass index (BMI) [Ratio] 29.63 kg/m2 Timo Ihsan DO Work Phone: [facility] 08-15-2024 14:13-0400 Body weight 71.12 kg Timo Ihsan DO Work Phone: [facility] 08-15-2024 14:13-0400 Diastolic blood pressure 80 mm[Hg] Timo Ihsan DO Work Phone: [facility] 08-15-2024 14:13-0400 Systolic blood pressure 114 mm[Hg] Timo Ihsan DO Work Phone: [facility] 07-17-2024 15:08-0500 Body mass index (BMI) [Ratio] 29.44 kg/m2 Timo Ihsan DO Work Phone: [facility] 07-17-2024 15:08-0500 Body weight 70.67 kg Timo Ihsan DO Work Phone: [facility] 07-17-2024 15:08-0500 Diastolic blood pressure 70 mm[Hg] Timo Ihsan DO Work Phone: [facility] 07-17-2024 15:08-0500 Systolic blood pressure 120 mm[Hg] Timo Ihsan DO Work Phone: [facility] 12-16-2023 15:18-0400 Diastolic blood pressure 68 mm[Hg] Tam Mauricionus [facility] 12-16-2023 15:18-0400 Systolic blood pressure 118 mm[Hg] Tam Mauricionus [facility] 05-12-2023 10:13-0500 Diastolic blood pressure 72 mm[Hg] Sha Barrerasilke [facility] 05-12-2023 10:13-0500 Heart rate 94 /min Sha Vallejo [facility] 05-12-2023 10:13-0500 SaO2% (BldA) [Mass fraction] 90 % Sha Rodpippasilke [facility] 05-12-2023 10:13-0500 Systolic blood pressure 130 mm[Hg] Sha Barrerasilke [facility] 05-03-2023 12:24-0500 Diastolic blood pressure 59 mm[Hg] Jena Hicks MD Work Phone: [facility] 05-03-2023 12:24-0500 Heart rate 86 /min Jena Hicks MD Work Phone: [facility] 05-03-2023 12:24-0500 Systolic blood pressure 103 mm[Hg] Jena Hicks MD Work Phone: [facility] 05-03-2023 12:14-0500 Body height 152.4 cm Jena Hicks MD Work Phone: [facility] 05-03-2023 12:14-0500 Body temperature 98.29 [degF] Jena Hicks MD Work Phone: [facility] 05-03-2023 12:14-0500 Body weight 65.82 kg Jena Hicks MD Work Phone: [facility] 05-03-2023 12:14-0500 Respiratory rate 16 /min Jena Hicks MD Work Phone: [facility] 05-03-2023 12:14-0500 SaO2% (BldA) [Mass fraction] 93 % Jena Hicks MD Work Phone: [facility] 09-06-2022 09:39-0400 Blood Pressure Location Dayron Jorgensen [facility] 09-06-2022 09:39-0400 Diastolic blood pressure 81 mm[Hg] Dayron Davidsonan [facility] 09-06-2022 09:39-0400 Heart rate 103 /min Dayron Davidsonan [facility] 09-06-2022 09:39-0400 SaO2% (BldA) [Mass fraction] 90 % Dayron Davidsonan [facility] 09-06-2022 09:39-0400 Systolic blood pressure 126 mm[Hg] [facility] Encounters Encounter Date Encounter Type Care Provider Facility Start: 12-07-2024 End: 12-07-2024 ambulatory XXXX NONE Facility:[facility] Start: 09-28-2024 End: 09-28-2024 Patient encounter procedure Nati Petty [facility] Start: 09-28-2024 End: 09-28-2024 ambulatory PA-C Nati Petty Facility:[facility] Start: 08-16-2024 End: 09-28-2024 Patient encounter procedure Jsu Del Castillo [facility] Start: 08-15-2024 End: 08-15-2024 Bamboo flowsheet Timo [...] Start: 07-20-2024 End: 07-20-2024 ambulatory XXXX NONE Facility:[facility] Start: 07-17-2024 End: 07-17-2024 Office outpatient visit [...] End: 07-06-2024 Patient encounter procedure Tam Vallejo [facility] Start: 01-20-2024 End: 01-20-2024 ambulatory [facility] Start: 01-09-2024 End: 01-10-2024 ambulatory [facility] Start: 12-16-2023 End: 12-17-2023 Pre-admission assessment Tam Vallejo [facility] Start: 12-16-2023 End: 12-16-2023 ambulatory XXXX NONE Facility:[facility] Start: 11-09-2023 End: 11-09-2023 ambulatory TIMO CHAMPAGNE Not Available Start: 05-12-2023 End: 05-12-2023 Patient encounter procedure Sha Vallejo 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 Start: 01-20-2023 End: 01-20-2023 Patient encounter procedure Sha Vallejo [facility] Start: 09-24-2022 End: 09-24-2022 Patient encounter procedure Dayron Jorgensen [facility] Start: 09-06-2022 End: 09-06-2022 Patient encounter procedure Dayron Jorgensen [facility] Start: 08-02-2022 End: 08-03-[address] MARCK TATE . Facility:[facility] Start: 07-28-2022 End: 07-28-[address] MARCK TATE . Facility:[facility] Start: 07-14-2022 End: 07-15-[address] MARCK TATE . Facility:[facility] Start: 04-30-2022 End: 05-01-[address] MARCK TATE . Facility:[facility] Start: 02-16-2022 End: 02-17-[address] MARCK TATE . Facility: Start: 06-17-2017 End: 06-18-2017 Ambulatory DEFAULT PHYSICIAN Facility:[facility] Plan of Treatment Date Care Activity Detail Author Start: 07-04-2029 Urine microalbumin profile DTaP,Tdap,Td Vaccine (2 - Td or Tdap) [facility] Start: 08-15-2024 End: 08-15-2024 Patient encounter procedure 08/15/2024 1:50 PM EDT Office Visit [facility] [address] [place] [address] Timo Champagne, [address], [place] [address] Arrived [facility] Comment on above: Arrived Start: 08-07-2024 End: 08-07-2024 Professional / ancillary services management 08/07/2024 2:30 PM EDT Ancillary Procedure [facility] [address] [place] [address] [facility] Start: 07-17-2024 End: 07-17-2024 Patient encounter procedure 07/17/2024 2:40 PM EST Office Visit [facility] [address] [place] [address] Timo Champagne, DO [address] [place] [address] [place] [address] Arrived [facility] Comment on above: Arrived Start: 07-17-2024 End: 07-17-2025 US Pelvis US Pelvis w/ TV Imaging Routine Cyst of left ovary Expected: 07/17/2024, Expires: 07/17/2025 [facility] Work Phone: Comment on above: Expected: 07/17/2024 , Expires: 07/17/2025 Start: 01-22-2024 Influenza vaccination Influenza Vacc ine (#1) [facility] Start: 01-21-2023 Influenza vaccination Influenza Vacc ine (#1) [facility] Start: 05-23-2022 Advance Directive Discussion Advance Directive Discussion [facility] Start: 05-23-2022 Depression Assessment Depression Ass essment [facility] Start: 03-23-2018 Pneumococcal Vaccine : 65+ Years (2 of 2 - PPSV23 or PCV20) Pneumococcal Vaccine: 65+ Years (2 of 2 - PPSV23 or PCV20) [facility] Start: 05-18-2017 Pneumococcal Vaccine : 65+ (2 - PPSV23 or PCV20) Pneumococcal Vaccine: 65+ (2 - PPSV23 or PCV20) [facility] Start: 2006 Bone Density Screening Bone Density Screening [facility] Start: 2006 Pneumococcal Vaccine : 65+ (1 - PCV) Pneumococcal Vaccine: 65+ (1 - PCV) [facility] Start: 2006 Screening for osteoporosis Bone Density Screening [facility] Start: 2001 RSV Vaccine (1 - 1-d ose 60+ series) RSV Vaccine (1 - 1-dose 60+ series) [facility] Start: 1991 Shingrix Vaccine (1 of 2) Shingrix Vaccine (1 of 2) [facility] Start: 1986 Diabetes Screening Diabetes Screenin g [facility] Start: 1941 Covid-19 Vaccine (#1) Covid-19 Vacci ne (#1) [facility] End: 05-25-2024 Ct angio abd&plvis cntrst mtrl w/wo cntrst img CTA ABD/PEL WO/W IVCON Radiology Routine Chest pain, unspecified type 1 Occurrences starting 04/26/2023 until 05/25/2024 [facility] Work Phone: Comment on above: 1 Occurrences starti ng 04/26/2023 until 05/25/2024 End: 06-02-2024 Ct angio abd&plvis cntrst mtrl w/wo cntrst img CTA ABD/PEL WO/W IVCON Radiology Routine 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 Occurrences starting 05/04/2023 until 06/02/2024 [facility] Work Phone: Comment on above: 1 Occurrences starti ng 05/04/2023 until 06/02/2024 End: 05-25-2024 Ct angiography chest w/contrast/noncontrast CTA CHEST (NONGATED) WO/W IVCON Radiology Routine Chest pain, unspecified type 1 Occurrences starting 04/26/2023 until 05/25/2024 [facility] Work Phone: Comment on above: 1 Occurrences starti ng 04/26/2023 until 05/25/2024 End: 06-02-2024 Ct angiography chest w/contrast/noncontrast CTA CHEST (NONGATED) WO/W IVCON Radiology Routine 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 Occurrences starting 05/04/2023 until 06/02/2024 [facility] Work Phone: Comment on above: 1 Occurrences starti ng 05/04/2023 until 06/02/2024 End: 05-04-2024 PVR ANK/HILL/TOE AWAIS VAS LAB PVR ANK/HILL/TOE AWAIS VAS LAB Vascular Lab Routine 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) Other disorders of arteries, arterioles and capillaries in diseases classified elsewhere (HCC) 1 Occurrences starting 05/04/2023 until 05/04/2024 [facility] Work Phone: Comment on above: 1 Occurrences starti ng 05/04/2023 until 05/04/2024 End: 05-04-2024 US CAROTID ARTERIES AWAIS VAS LAB US CAROTID ARTERIES AWAIS VAS LAB Vascular Lab Routine Bilateral carotid artery stenosis 1 Occurrences starting 05/04/2023 until 05/04/2024 [facility] Work Phone: Comment on above: 1 Occurrences starti ng 05/04/2023 until 05/04/2024 [facility] Immunizations Immunization Date Immunization Notes Care Provider Kay bennett 01-20-2024 tetanus toxoid, redu gene diphtheria toxoid, and acellular pertussis vaccine, adsorbed Jus Magdalene [facility] 04-26-2023 influenza virus vaccine, unspecified formulation Timo Champagne DO Work Phone: [facility] 12-16-2021 SARS-CoV-2 mRNA (wxtsxpzrukz-ccdt-qudng se) vaccine Jus Magdalene [facility] Comment on above: Result Comment: 2024: [id number] 04-07-2021 SARS-CoV-2 (COVID-19 ) mRNA BNT-162b2 vax Jus Magdalene [facility] Comment on above: Result Comment: 2024: [id number] 09-29-2020 SARS-CoV-2 (COVID-19 ) mRNA BNT-162b2 vax Jus Magdalene [facility] 09-08-2020 SARS-CoV-2 (COVID-19 ) mRNA BNT-162b2 vax Jus Magdalene [facility] 04-23-2020 influenza virus vaccine, unspecified formulation Jus Magdalene [facility] 07-04-2019 tetanus toxoid, redu gene diphtheria toxoid, and acellular pertussis vaccine, adsorbed Jus Magdalene [facility] 03-23-2017 pneumococcal conjuga te vaccine, 13 valent Jus Magdalene [facility] 03-06-2017 influenza virus vaccine, unspecified formulation Jus Del Castillo [facility] Payers Date Payer Category [employer]ayer [employer]) [id number] 2018 [employer] others) [id number] 2006 Medicare [id number] 1998 () [id number] 1959 [employer] ( and others) [id number] 1959 Medicare [id number] 1940 Unknown [id number] [id number]. 2.593 1941 Unknown [id number] 2.16840.1.249830.3.579. 2.593 1941 Unknown [id number] 2.16.840.1.281320.3.579. 2.593 1941 Unknown [id number] 2.16.840.1.262755.3.579. 2.593 1941 Unknown [id number] 2.16.840.1.430359.3.579. 2.593 1941 Unknown [id number] 2.16.840.1.633553.3.579. 2.1259 1941 Unknown [id number] 2.16.840.1.072373.3.579. 2.1259 1941 Unknown [id number] 2.16.840.1.162418.3.579. 2.1259 1941 Unknown [id number] 2.16.840.1.173885.3.579. 2.1259 1941 Unknown [id number] 2.16.840.1.485536.3.579. 2.727 1941 Unknown [id number] 2.16.840.1.774329.3.579. 2.727 1941 Unknown [id number] 2.16.840.1.960254.3.579. 2.727 1941 Unknown [id number] 2.16.840.1.185695.3.579. 2.727 1941 Unknown [id number] 2.16.840.1.204104.3.579. 2.727 Unknown Social History Date Type Detail Facility Start: 09-06-2022 End: 09-28-2024 Tobacco smoking status Heavy tobacco smoker (finding) [facility] Start: 05-03-2023 Sex Assigned At Female F [facility] unknown [facility] Start: 1940 Sex Assigned At Not on file [facility] Start: 05-23-1956 Tobacco smoking stat [facility] Smokes tobacco daily [facility] Start: 05-23-1956 History of tobacco use Cigarette Smo ker [facility] Start: 05-03-2023 Cigarettes smoked current (pack per day) - Reported 1.5 [facility] Start: 05-03-2023 Tobacco use and exposure Smoke less tobacco non-user [facility] Start: 05-03-2023 Alcohol intake Current drinke r of alcohol (finding) [facility] National Score (1-10 0), lower number is lower risk 87 [facility] Start: 05-03-2023 Alcohol Comment [facility] Start: 08-17-2022 Sex Female (finding) [facility] Functional Status Date Assessment Result Facility 09-28-2024 Functional Status N/A [facility] 12-16-2023 Functional Status N/A [facility] 05-12-2023 Functional Status N/A [facility] 09-06-2022 Functional Status No [facility] Clinical Notes 03-22-2023 to 08-15-2024 Patrizia [...] nursing note reviewed. Exam conducted with a research quality assurance analyst present. Vitals: Estimated body mass index is [...] 12:06 PM EDT documented in this encounter [facility] 07-17-2024 History of Present illness Narrative Reason [...] nursing note reviewed. Exam conducted with a research quality assurance analyst present. 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 [facility] 01-09-2024 Note [facility] Note Reason for cardiology consult: Dyspnea on exertion, prior history of CAD Chief Complaint: Dyspnea on exertion HPI: Beth Starkey is a 83 y.o. 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 for which she follows with [facility], it was recommended to continue to [...] has a past medical history of Aneurysm (CMS/[facility]), Coronary artery disease, Diabetes mellitus [...] [facility] ([id number]) 1940 F Date Time Provider Department 05/26/23 [...] and brochure sent Lung Nodule Program Location: [facility] As of Date: 05/26/2023 (No Known [...] by EVANGELINA BURNETT on 05/26/23 [facility] 05-26-2023 Note HNO ID: [id number] Author: ?, ?, ? Service: ? Author [...] and brochure sent Lung Nodule Program Location: [facility] 05-18-2023 Note Patient Outreach ([facility]) BETH STARKEY ([id number]) 1940 F Date Time Provider Department 05/18/23 SOFIA BELLO [facility] During your visit today, we recorded the following information about you: Sofia Bello, ASSISTANT PROFESSOR OF ART.[facility] 05/18/2023 11:12 AM Signed Incidental Lung Nodule Enrollment Outreach attempt: 1st Attempt Outreach status: Complete Enrolled in Lung Nodule program: Referred Lung Nodule outreach: No outreach - Very small nodule, letter and brochure sent Lung Nodule Program Location: [facility] As of Date: 05/18/2023 (No Known [...] Encounter Status:Closed by SOFIA BELLO on 05/18/23 [facility] 05-18-2023 Note HNO ID: [id number] Author: Sofia Bello, CHELSEA.PROPERTY UNDERWRITER Service: ? Author Type: Nurse Practitioner Type: Progress Notes Filed: 05/18/2023 11:12 AM Note Text: Incidental Lung Nodule Enrollment Outreach attempt: 1st Attempt Outreach status: Complete Enrolled in Lung Nodule program: Referred Lung Nodule outreach: No outreach - Very small nodule, letter and brochure sent Lung Nodule Program Location: [facility] 05-03-2023 Note HNO ID: [id number] Author: Nadine Cummins RN Service: Radiology Author [...] 03, 2023 TIME: 1:00 PM [facility] 05-03-2023 Note HNO ID: [id number] Author: Kandy Aragon RT(R) Service: Radiology Author [...] May 03, 2023 1:19 PM [facility] 05-03-2023 History and physical note Heart , Vascular and Thoracic [facility] DEPARTMENT OF VASCULAR SURGERY OUTPATIENT VISIT DATE [...] consultation at the request of Dr. Md Macrk Tate. A copy of this consultation note [...] 4 - Moderate documented in this encounter [facility] 04-25-2023 Miscellaneous Notes Reason for call: Ms Starkey called,and she would like to schedule an appointment with vascular surgery Referred by Dr Judit Tate Home and cell number: [phone] Diagnosis: AAA Kind Regards Med documented in this encounter [facility] 04-22-2023 Miscellaneous Notes Patient: Beth Starkey Date of : 1940 Patient phone number: [phone] Referring Provider for the encounter: Marck Tate MD Requesting Provider: N/A Reason for requesting visit (RFV/signs and symptoms/diagnosis): Sent Telephone Encounter - updated tracking. Person calling: caregiver: Patrizia Return call to: self Medical Records/Insurance Card scanned into Epic: Yes Comments: N/A documented in this encounter [facility] 03-23-2023 Evaluation + Plan note Diagnostic Tests PendingCreatinine 03/23/23 Future Scheduled TestsCTA Abd Aorto-bilat/ iliofemoral runoff 03/22/23 [facility] 03-22-2023 Evaluation + Plan note Future Scheduled TestsCTA Abd Aorto-bilat/ iliofemoral runoff 03/22/23 [facility] Evaluation + Plan note Future Appointments Appointment Date:10/11/2022 10:00:00 AM Scheduled Provider:Dayron Jorgensen MD Location[facility] Appointment Type:Vascular Follow Up ([facility]) Future Scheduled TestsCTA Abdomen and Pelvis 09/06/22CTA Chest 09/06/22 [facility] Evaluation + Plan note Future Appointments Appointment Date:10/11/2022 10:00:00 AM Scheduled Provider:Dayron [facility]orgensen [facility] Follow Up ([facility]) [facility] Evaluation + Plan note Future Scheduled TestsCTA Abd Aorto-bilat/ iliofemoral runoff 03/22/23 [facility] Evaluation + Plan note Future Appointments Appointment Date:06/18/2024 09:45:00 AM Scheduled Provider:Tam Vallejo MD [facility] [place] App[facility] Type:Cardiology Follow Up ([facility]) Future Scheduled TestsCTA Abd Aorto-bilat/ iliofemoral runoff 03/22/23 [facility] Evaluation + Plan note Future Appointments Appointment Date:07/20/2024 10:00:00 AM Scheduled Provider:Tam Vallejo MD [facility] [place] Type:Cardiology Follow Up ([facility]) Future Scheduled TestsLipid Panel 12/19/23NM Myocardial Spect Rest/Stress 1 Day 12/21/23Echo Transthoracic Complete 12/21/23CTA Abd Aorto-bilat/ iliofemoral runoff 03/22/23 [facility] Evaluation + Plan note Future Appointments Appointment Date:12/07/2024 03:00:00 PM Scheduled Provider:Jus Del Castillo MD Location[facility] [place] Appointment Type:Cardiology Follow Up (FT) Future Scheduled TestsLipid Panel 07/24/24NM Myocardial Spect Rest/Stress 1 Day 12/21/23Echo Transthoracic Complete 12/21/23CTA Abd Aorto-bilat/ iliofemoral runoff 09/17/24 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 Bilateral carotid artery stenosis Occlusion and stenosis of carotid artery without mention of cerebral infarction Other disorders of arteries, arterioles and capillaries in diseases classified elsewhere ([facility]) [facility] Diagnosis Cyst of left ovary Other and unspecified ovarian cyst documented in this encounter [facility]* Diagnosis Encounter to discuss test results Other specified counseling Cyst of left ovary Other and unspecified ovarian cyst documented in this encounter [facility] HealthcareHospital course Narrative No data available for this section [facility] No data available for this section [facility] No data available for this section 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) Other disorders of arteries, arterioles and capillaries in diseases classified elsewhere ([facility]) Procedures PVR ANK/HILL/TOE AWAIS VAS LAB NON-INVAS PHYSIOLOGIC STD EXTREMITY ART 2 LEVEL Jena Hicks MD [address] [place] [address] [facility] [address] [place] [address] Referral ID Status Reason Start Date Expiration Date Visits Requested Visits Authorized [id number] Authorized Auto-Generat ed Referral 3 05/03/2024 1 1 * MRI/CT (Routine) - Authorized Specialty Diagnoses / Procedures Referred By Marcac t Referred To Contact CT IMAGING Diagnoses 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) Procedures CTA ABD/PEL WO/W IVCON CT ANGIO ABD&PLVIS CNTRST MTRL W/WO CNTRST Jena Todd MD [address] [place] [address] Ct [facility] [place] [address] Referral ID Status Reason Start Date Expiration Date Visits Requested Visits Authorized [id number] Authorized Auto-Generat ed Referral 3 06/02/2024 1 1 * MRI/CT (Routine) - Authorized Specialty Diagnoses / Procedures Referred By Manjula t Referred To Contact CT IMAGING Diagnoses 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) Procedures CTA CHEST (NONGATED) WO/W IVCON CT ANGIOGRAPHY CHEST W/CONTRAST/NONCONTRAST Jena Hicks MD [address] [place] [address] Ct [facility] [place] [address] Referral ID Status Reason Start Date Expiration Date Visits Requested Visits Authorized [id number] Authorized Auto-Generat ed Referral 3 06/02/2024 1 1 * Outpatient Procedure (Routine) - Authorized Specialty Diagnoses / Procedures [facility] Diagnoses Bilateral carotid artery stenosis Procedures US CAROTID ARTERIES AWAIS VAS LAB DUPLEX SCAN EXTRACRANIAL [place] [address] [place] [address] [facility] [address] [place] [address] Referral ID Status Reason Start Date Expiration Date Visits Requested Visits Authorized [id number] Authorized Auto-Generat ed Referral 12/1305/03/2024 1 1 [facility] Summary Purpose Family History No [...] CT ANGIO ABD&PLVIS CNTRST MTRL W/[facility] Jena Hicks MD [address] [place] [address] [facility] [place] [address] Referral ID Status Reason Start Date Expiration Date Visits Requested Visits Authorized [id number] Authorized Auto-Generat ed Referral 04/26/2023 05/25/2024 1 1 Specialty Diagnoses / Procedures Referred By Contac t Referred To Contact CT IMAGING Diagnoses Chest pain, unspecified type Procedures CTA CHEST (NONGATED) WO/W IVCON CT ANGIOGRAPHY CHEST W/CONTRAST/NONCONTRAST Jena Hicks MD [address] [place] [address] [facility] [place] [address] Referral ID Status Reason Start Date Expiration Date Visits Requested Visits Authorized [id number] Authorized Auto-Generat ed Referral 04/26/2023 05/25/2024 1 1 Additional Source Comments INFORMATION SOURCE (unrecogn ized section and content) DATE CREATED AUTHOR 11/14/2017 [facility] DATE CREATED AUTHOR AUTHOR'S ORGANIZ ATION 08/09/2022 [facility] DATE CREATED AUTHOR AUTHOR'S ORGANIZ ATION 05/27/2023 [facility] DATE CREATED AUTHOR AUTHOR'S ORGANIZ ATION 01/22/2024 [facility] DATE CREATED AUTHOR AUTHOR'S ORGANIZ ATION 08/16/2024 [facility] EPIC DATE CREATED AUTHOR AUTHOR'S ORGANIZ ATION 12/11/2024 [place] Patient Care team informatio n (unrecognized section and content) Federal Agent Relationship Specialty Start Date End Date Marck Tate MD [address] [facility] [place] [address] Family Medicine 04/22/23 Federal Agent Relationship Specialty Start Date End Date Marck Tate MD [address] [facility] [place] [address] Family Medicine 04/22/23 Federal Agent Relationship Specialty Start Date End Date Marck Tate MD [address] [facility] [place] [address] Family Medicine 04/22/23 Federal Agent Relationship Specialty Start Date End Date Marck Tate MD [address] [facility] [place] [address] Family Medicine 04/22/23 Federal Agent Relationship Specialty Start Date End Date Marck Tate MD [address] [facility] [place] [address] PCP - General Family Medicine 05/30/23 Federal Agent Relationship Specialty Start Date End Date Marck Tate MD [address] [facility] [place] [address] PCP - General Family Medicine 05/30/23 Federal Agent Relationship Specialty Start Date End Date Marck Tate MD [address] [place] [address] PCP - General Family Medicine 05/30/23 Federal Agent Relationship Specialty Start Date End Date Marck Tate MD [address] [place] [address] PCP - General Family Medicine 05/30/23 Source Comments (unrecognize d section and content) In the event this informatio n is protected by the Federal Confidentiality of Alcohol and Drug Abuse Patient Records regulations: The Federal rules restrict any use of the information to criminally investigate or prosecute any alcohol or drug abuse patient.[facility] the event this information is protected by the Federal Confidentiality of Alcohol and Drug Abuse Patient Records regulations: The Federal rules restrict any use of the information to criminally investigate or prosecute any alcohol or drug abuse patient.[facility] HospitalIn the event this information is protected by the Federal Confidentiality of Alcohol and Drug Abuse Patient Records regulations: The Federal rules restrict any use of the information to criminally investigate or prosecute any alcohol or drug abuse patient.[facility] HospitalIn the event this information is protected by the Federal Confidentiality of Alcohol and Drug Abuse Patient Records regulations: The Federal rules restrict any use of the information to criminally investigate or prosecute any alcohol or drug abuse patient.[facility] HospitalIn the event this information is protected by the Federal Confidentiality of Alcohol and Drug Abuse Patient Records regulations: The Federal rules restrict any use of the information to criminally investigate or prosecute any alcohol or drug abuse patient.[facility] Reason for Visit (unrecogniz ed section [...] BE BASED ON THE PRIMARY CLINICAL RECORDS. [facility] [email or web address] [facility]. provides no warranty or guarantee of the accuracy or completeness of information in this document.
[2025-02-05 11:54] LABS: Hematocrit 45.3 % (36.0-48.0); Hemoglobin 15.1 g/dL (12.0-16.0); Immature Granulocytes Abs Auto 0.04 10^3/uL (0.00-0.03); Immature Granulocytes Pct Auto 0.4 % (0.0-0.5); Lymphocytes Absolute Auto 1.2 10^3/uL (1.2-3.8); Mean Corpuscular HGB Conc 33.3 g/dL (29.9-35.2); Mean Corpuscular Hemoglobin 29.5 pg (26.7-34.0); Mean Corpuscular Volume 88.5 fL (81.0-99.0); Platelet Count 210 10^3/uL (150-450); Red Blood Count 5.12 10^6/uL (4.20-5.40); White Blood Count 9.8 10^3/uL (4.0-11.0)
[2025-02-05 12:08] LABS: INR 1.03; Partial Thromboplastin Time 26.2 sec (22.3-36.2); Prothrombin Time 10.9 sec (9.0-11.6)
[2025-02-05 12:15] LABS: Alanine Aminotransferase 35 U/L (14-59); Albumin Globulin Ratio 1.0; Albumin Level 4.1 g/dL (3.4-5.0); Alkaline Phosphatase 133 U/L (46-116); Anion Gap 13.1; Aspartate Amino Transferase 15 U/L (15-37); Blood Urea Nitrogen 39.0 mg/dL (7.0-18.0); Calcium 10.0 mg/dL (8.5-10.1); Carbon Dioxide 25.9 mmol/L (21.0-32.0); Chloride 108 mmol/L (98-107); Estimated GFR (African America 57 (>=60 mL/min/1.73m^2); Estimated GFR (Non-African Ame 47 (>=60 mL/min/1.73m^2); Globulin 4.3 g/dL; Glucose 165 mg/dL (74-106); Potassium 5.0 mmol/L (3.5-5.1); Sodium 142 mmol/L (136-145); Total Protein 8.4 g/dL (6.4-8.2)
== END 2025-02-05 11:09 | disposition home or self-care (01) ==
LOC: LAB 11:11
PROVIDERS: PCP Family Medicine; Visit Provider Family Medicine
DX: K52.9 Noninfective gastroenteritis and colitis, unspecified (principal); R58 Hemorrhage, not elsewhere classified; K92.1 Melena
CPT/HCPCS: 36415; 80053; 85025; 85610; 85730

== ENCOUNTER 2025-02-06 15:33 | Outpatient (REF) | payer MEDICARE, OTHER, SELFPAY ==
--- OUTSIDE RECORDS SUMMARY | 2025-02-07 15:36 | XMS_ITS | Encounter Summary ---
Author Organization [facility] Address [address] [place] [address] Care Team Providers Care It Security Consultant Name Role Phone Kwame Tate MD Primary Care Provider [phone] Encounter Details Date Type Department Care Team (Late st Contact Info) Description 06/01/2023 Clinisync Result Encounter [facility] External Department Unsolicited Forrest Champagne, DO [address] [facility] [place] [address] Social History Tobacco Use Types Packs/Day Years Used Date Smoking Tobacco: Never Assessed Comments Unknown Sex and Gender Information Value Date Recorded Sex Assigned at Not on file Legal Sex Female 8:26 PM EDT Gender Identity Not on file Sexual Orientation Not on file documented as of this encounter Plan of Treatment Not on file documented as of this encounter Procedures Procedure Name Priority Date/Time Associated Diagnosis Comments US PELVIS W/ TRANSVAGINAL 06/01/2023 3:13 PM EST ALL CA 125 Routine 06/01/2023 3:10 PM EST documented in this encounter Results * US PELVIS W/ TRANSVAGINAL (06/01/2023 3:13 PM EST) Anatomical Region Laterality Modality Other 06/01/2023 3:13 PM EST Narrative 06/01/2023 3:16 PM EST The [address] [address] Ultrasound Report Signed Patient: ADELA PARDO MR#: [id number] : 1940 Acct:[id number] Age/Sex: 83 / F ADM Date: 06/01/23 Loc: US Attending Dr: Forrest Champagne D.O. Ordering Physician: Forrest Champagne D.O. Date of Service: 06/01/23 Procedure(s): US pelvis w/ transvaginal Accession Number(s): [id number] cc: Forrest Champagne D.O.; Kwame Tate M.D. [place] [id number] Patient Name: ADELA PARDO MRN: [id number] date: 1940 Sex: F Assigned Patient Location: US Current Patient Location: US Accession/Order Number: [id number] Exam Date: 06/01/2023 14:20 Report Date: 06/01/2023 15:13 At the request of: FORREST CHAMPAGNE Procedure: US pelvis w/ transvaginal EXAMINATION: US pelvis w/ transvaginal HISTORY: left ovarian cyst COMPARISON: Ultrasound pelvis 03/30/2023 TECHNIQUE: Transabdominal and/or transvaginal sonographic examination was performed as indicated by examination type. FINDINGS: UTERUS: Heterogeneous and contains multiple calcifications. Uterus size: 6.6 x 2.5 x 4.1 cm. ENDOMETRIUM: Normal homogeneous appearance. Endometrial thickness: 4 mm RIGHT OVARY: Normal size and appearance. Duplex Doppler demonstrates normal waveform and flow; resistive index 0.3. Ovary size: 2.0 x 1.0 x 1.67 m LEFT OVARY: Contains a 5.1 cm anechoic, simple appearing cyst. Duplex Doppler demonstrates normal waveform and flow; resistive index 0.7. Ovary size: 5.8 x 5.5 x 5.0 cm CUL-DE-SAC: Unremarkable. No significant free fluid. BLADDER: Unremarkable. OTHER: None. US/US pelvis w/ transvaginal IMPRESSION: 1. Persistence large left ovarian cyst 5.1 cm. While the cyst is simple and without overtly suspicious characteristics, it is not expected in a patient of this age. Electronically authenticated by: GARCIA PERES Date: 06/01/2023 15:13 Dictated By: Garcia Peres M.D. Signed By: 06/01/23 5676 DD/ TD/TT: Splicing Machine Operator: Procedure Note Radiology, Radiologist, - 06/01/2023 [place] [address] Ultrasound Report Signed Patient: ADELA PARDO LMR#: [id number] : 1940cct:[id number] Age/Sex: 83 / FADM Date: 06/01/23 Loc: US Attending Dr: Forrest Champagne D.O. Ordering Physician: Forrest Champagne D.O. Date of Service: 06/01/23 Procedure(s): US pelvis w/ transvaginal Accession Number(s): [id number] cc: Forrest Champagne D.O.; Kwame Tate M.D. [address] [address] Patient Name: ADELA PARDO MRN: [id number] date: 1940 Sex: F Assigned Patient Location: US Current Patient Location: US Accession/Order Number: [id number] Exam Date: 06/01/2023 14:20 Report Date: 06/01/2023 15:13 At the request of: FORREST CHAMPAGNE Procedure: US pelvis w/ transvaginal EXAMINATION: US pelvis w/ transvaginal HISTORY: left ovarian cyst COMPARISON: Ultrasound pelvis 03/30/2023 TECHNIQUE: Transabdominal and/or transvaginal sonographic examination was performed as indicated by examination type. FINDINGS: UTERUS: Heterogeneous and contains multiple calcifications. Uterus size:6.6 x 2.5 x 4.1 cm. ENDOMETRIUM: Normal homogeneous appearance. Endometrial thickness: 4 mm RIGHT OVARY: Normal size and appearance. Duplex Doppler demonstratesnormal waveform and flow; resistive index 0.3. Ovary size: 2.0 x 1.0 x 1.67 m LEFT OVARY: Contains a 5.1 cm anechoic, simple appearing cyst. DuplexDoppler demonstrates normal waveform and flow; resistive index 0.7. Ovary size:5.8 x 5.5 x 5.0 cm CUL-DE-SAC: Unremarkable. No significant free fluid. BLADDER: Unremarkable. OTHER: None. US/US pelvis w/ transvaginal IMPRESSION: 1. Persistence large left ovarian cyst 5.1 cm. While the cyst is simpleand without overtly suspicious characteristics, it is not expected in apatient of this age. Electronically authenticated by: GARCIA PERES Date: 06/01/2023 15:13 Dictated By: Garcia Peres M.D. Signed By:06/01/23 1516 DD/ 12 TD/TT: Splicing Machine Operator: us Forrest Ihsan DO [facility] Final Result * ALL CA 125 (06/01/2023 3:10 PM EST) CANCER ANTIGEN (CA) 125 14.5 0.0 - 38.1 U/mL [facility] Comment: [facility] [employer] Electrochemiluminescence Immunoassay (ECLIA) Values obtained with different assay methods or kits cannot be used interchangeably. Results cannot be interpreted as absolute evidence of the presence or absence of malignant disease. Performed at: [place] [id number] Sugar Cane Planter Machine Operator: Coy Dean PhD, Phone: [phone] 06/01/2023 3:10 PM EST 06/01/2023 3:12 PM EST Narrative [facility] - 06/03/2023 8:12 AM EST us Forrest Ihsan DO [facility] Final Result [facility] documented in this encounter Visit Diagnoses Not on filedocumented in this encounter Care Teams It Security Consultant Relationship Specialty Start Date End Date Kwame Tate MD PCP - General Family Medicine 05/30/23 documented as of this encounter
--- OUTSIDE RECORDS SUMMARY | 2025-02-07 15:36 | XMS_ITS | Encounter Summary ---
Author Organization [facility] Address [address] [place] [address] Care Team Providers Care Selling Underwriter Name Role Phone Kwame Tate MD Primary Care Provider [phone] Encounter Details Date Type Department Care Team (Late st Contact Info) Description 11/16/2023 Clinisync Result Encounter [facility] External Department Unsolicited Forrest Champagne DO [address] [facility] [place] [address] Social History Tobacco Use Types Packs/Day Years Used Date Smoking Tobacco: Never Assessed Comments No Sex and Gender Information Value Date Recorded Sex Assigned at Not on file Legal Sex Female 8:26 PM EDT Gender Identity Not on file Sexual Orientation Not on file documented as of this encounter Plan of Treatment Not on file documented as of this encounter Procedures Procedure Name Priority Date/Time Associated Diagnosis Comments US PELVIS TRANSVAGINAL 11/16/2023 12:58 PM EDT documented in this encounter Results * US PELVIS TRANSVAGINAL (11/16/2023 12:58 PM EDT) Anatomical Region Laterality Modality Other 11/16/2023 12:5 8 PM EDT Narrative 11/16/2023 1:00 PM EDT [facility] [address] [place] [address] Ultrasound Report Signed Patient: ADELA PARDO MR#: [id number] : 1940 Acct:[id number] Age/Sex: 83 / F ADM Date: 11/16/23 Loc: [facility] Attending Dr: Forrest Champagne D.O. Ordering Physician: Forrest Champagne D.O. Date of Service: 11/16/23 Procedure(s): US pelvis transvaginal Accession Number(s): [id number] cc: Forrest Champagne D.O.; Kwame Tate M.D. The [address] [address] Patient Name: ADELA PRADO MRN: [id number] date: 1940 Sex: F Assigned Patient Location: [facility] Current Patient Location: [facility] Accession/Order Number: [id number] Exam Date: 11/16/2023 11:14 Report Date: 11/16/2023 12:58 At the request of: FORREST CHAMPAGNE Procedure: US pelvis transvaginal EXAMINATION: US pelvis transvaginal HISTORY: LEFT OVARIAN CYST COMPARISON: 06/01/2023, 03/30/2023 FINDINGS: The uterus is normal in size, contour and echotexture measuring 6.1 x 2.8 x 5.2 cm, anteverted, anteflexed. Endometrium measures 3 mm, normal The right ovary is not visualized Left ovary is 5.8 x 4.4 x 5.1 cm. Normal color and Doppler flow. Area of anechoic echogenicity measuring 4.7 x 4.3 x 5.4 cm, simple cyst No free fluid US/US pelvis transvaginal IMPRESSION: Stable 5.4 cm left ovarian simple cyst Electronically authenticated by: SANDOVAL AGUILAR Date: 11/16/2023 12:58 Dictated By: Sandoval Aguilar M.D. Signed By: 11/16/23 1300 DD/ 1258 TD/TT: Courier: Procedure Note Radiology, Radiologist, MD - 11/16/2023 [place] [address] Ultrasound Report Signed Patient: ADELA PARDO LMR#: [id number] : 1940cct:[id number] Age/Sex: 83 / FADM Date: 11/16/23 Loc: [facility] Attending Dr: Forrest Champagne D.O. Ordering Physician: Forrest Champagne D.O. Date of Service: 11/16/23 Procedure(s): US pelvis transvaginal Accession Number(s): [id number] cc: Forrest Champagne D.O.; Kwame Tate M.D. [address] [address] Patient Name: ADELA PARDO MRN: [id number] date: 1940 Sex: F Assigned Patient Location: [facility] Current Patient Location: [facility] Accession/Order Number: [id number] Exam Date: 11/16/2023 11:14 Report Date: 11/16/2023 12:58 At the request of: FORREST CHAMPAGNE Procedure: US pelvis transvaginal EXAMINATION: US pelvis transvaginal HISTORY: LEFT OVARIAN CYST COMPARISON: 06/01/2023, 03/30/2023 FINDINGS: The uterus is normal in size, contour and echotexture measuring 6.1 x 2.8x 5.2 cm, anteverted, anteflexed. Endometrium measures 3 mm, normal The right ovary is not visualized Left ovary is 5.8 x 4.4 x 5.1 cm. Normal color and Doppler flow. Area of anechoic echogenicity measuring 4.7 x 4.3 x 5.4 cm, simple cyst No free fluid US/US pelvis transvaginal IMPRESSION: Stable 5.4 cm left ovarian simple cyst Electronically authenticated by: SANDOVAL AGUILAR Date: 11/16/2023 12:58 Dictated By: Sandoval Aguilar M.D. Signed By:11/16/23 1300 DD/ 1258 TD/TT: Courier: us Forrest Champagne DO [facility] Final Result documented in this encounter Visit Diagnoses Not on filedocumented in this encounter Care Teams Selling Underwriter Relationship Specialty Start Date End Date Kwame Tate MD PCP - General Family Medicine 05/30/23 documented as of this encounter
--- OUTSIDE RECORDS SUMMARY | 2025-02-07 15:36 | XMS_ITS | Clinical Summary ---
Author Organization [facility] Address [address] [place] [address] Care Team Providers Care Personal Property Assessor Name Role Phone Kwame Tate MD Primary Care Provider [phone] Allergies No known active allergies Medications aspirin 81 MG chewable tablet Chew 81 mg in the morning. Active cetirizine (ZyrTEC) 10 MG tablet Take 10 mg by mouth in the morning. Active cholecalciferol (Vitamin D-3) 25 MCG (1000 UT) tablet Take 1,000 Units by mouth in the morning. Active glimepiride (Amaryl) 2 MG tablet 3 Active lisinopril 40 MG tablet Take 40 mg by mouth in the morning. Active metFORMIN (Glucophage) 500 MG tablet Take 500 mg by mouth in the morning and 500 mg before bedtime. Active omeprazole (PriLOSEC) [address] capsule TAKE 1 CAPSULE BY MOUTH EVERY DAY 30 MINUTES BEFORE BREAKFAST Active pramipexole (Mirapex) 1 MG tablet Take 1 mg by mouth in the morning. 3 Active Multiple Vitamin (Multi-Vitamin) tablet Take 1 tablet by mouth in the morning. Active melatonin 10 MG tablet Take 10 mg by mouth at bedtime Active ascorbic acid (Vitamin C) 500 MG chewable tablet Chew 500 mg in the morning. Active calcium carbonate (Tums) 250 mg ([place] 100 mg) chewable split tablet Take 500 mg by mouth in the morning. Active atorvastatin (Lipitor) 40 MG tablet Take 40 mg by mouth in the morning. Active metoprolol succinate XL (Toprol-XL) 25 MG 24 hr tablet Take 25 mg by mouth Daily Active Social History Tobacco Use Types Packs/Day Years Used Date Smoking Tobacco: Never Assessed Comments No Sex and Gender Information Value Date Recorded Sex Assigned at Not on file Legal Sex Female 8:26 PM EDT Gender Identity Not on file Sexual Orientation Not on file Last Filed Vital Signs Vital Sign Reading Time Taken Comments Blood Pressure 114/80 08/15/2024 2:13 PM EDT Pulse - - Temperature - - Respiratory Rate - - Oxygen Saturation - - Inhaled Oxygen Concentration - - Weight 71.1 kg (156 lb 12.8 oz) 08/15/2024 2:13 PM EDT Height 154.9 cm (5' 1 ) 11/09/2023 2:20 PM EDT Body Mass Index 29.63 11/09/2023 2:20 PM EDT Plan of Treatment Health Maintenance Due Date Last Done Comments Pneumococcal Vaccine: 65+ Ye ars (2 of 2 - PPSV23) 03/23/2018 03/23/2017 Influenza Vaccine (#1) 2025 3, 04/23/2020, 03/06/2017 Insurance MEDICARE [facility] Care Teams Personal Property Assessor Relationship Specialty Start Date End Date Kwame Tate MD PCP - General Family Medicine 05/30/23
--- OUTSIDE RECORDS SUMMARY | 2025-02-07 15:42 | XMS_ITS | CCD ---
Author Organization [facility] Care Team Providers Care Home Theatre Technician Name Role Phone PHYSICIAN, DEFAULT Unavailable Unavailable PHYSICIAN, DEFAULT Unavailable Unavailable MARCK TATE Unavailable Unavailable HOY ., DR ACHARYA Admitting Unavailable HOY ., DR ACHARYA Attending Unavailable HOY ., DR ACHARYA Primary Care Unavailable HOY ., DR ACHARYA Consulting Unavailable [place], DR SANDOVAL Ferguson Consulting Unavailable HOY ., [...] Medication Allergies] Propensity to adverse reactions (disorder) [facility] Repository Medications Current Medications Medication Drug Class(es) Dates Sig (Normalized) Sig (Original) amLODIPine 2.5 mg oral tablet (12 sources) Dihydropyridine Calcium Channel Yessica Start: 07-20-2024 take 1 tablet by mouth once daily Norvasc 2.5 mg Tab 2.5 mg = 1 tab(s), Oral, Daily, # 90 tab(s), Refills(s) 0, [facility]acy: [facility][id number], 152, cm, 07/20/24 10:08:00 EST, Height/Length Dosing, [...] Daily, # 30 tab(s), Refills(s) 6, [id number], 152, cm, 12/16/23 15:27:00 EDT, Height/Length Dosing, 69.1, kg, 12/16/23 15:27:00 EDT, Weight Dosing Start Date: 12/19/23 Status: Ordered Quantity: 30.0 Unit: tab(s) Repeat number: 7 calcium carbonate (Tums) 250 mg (walker river 100 mg) chewable split tablet (6 sources) calcium carbonat e (Tums) 250 mg (walker river 100 mg) chewable split tablet Take 500 [...] Daily, # 90 tab(s), Refills(s) 0, [facility]: [facility][id number], 152, cm, 07/20/24 10:08:00 EST, Height/Length Dosing, [...] Daily, # 30 tab(s), Refills(s) 6, [id number], 152, cm, 12/16/23 15:27:00 EDT, Height/Length Dosing, 69.1, kg, 12/16/23 15:27:00 EDT, Weight Dosing Start Date: 12/19/23 Status: Ordered Quantity: 30.0 Unit: tab(s) Repeat number: 7 Start: 12-16-2023 take 1 tablet by caty th once daily metoprolol succinate 25 mg ER Tab 25 mg = 1 tab(s), Oral, Daily, # 30 tab(s), Refills(s) 6, Pharmacy: [facility] #[id number], 152, cm, 12/16/23 15:27:00 EDT, Height/Length Dosing, [...] disease (7 sources) 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 At last visit, patient saw Dr. Vallejo [...] -see outside records Assessment/Plan 1. 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 She also had a recent stress test that was positive and considered high risk due to large reversible defect. However, patient refused heart cath when proposed by Dr. Vallejo last month last month. Again asked (more content not included)... Normal [facility] Comment on above: Result Comment: Elec tronically [...] as patient had to be rescheduled from [place]. At last visit, patient saw Dr. Vallejo [...] -see outside records Assessment/Plan 1. CAD in [place] river artery (I25.10: Atherosclerotic heart disease of [place] coronary artery without angina pectoris) The patient [...] with voice recognition artificial intelligence software, specifically [employer], [employer] and or [employer]. Substitutions may have occurred due to the inherent limitations of voice recognition and artificial intelligence software. Follow-up No qualifying data available Problem List/Past Medical History Ongoing AAA (abdominal aortic aneurysm) CAD in [place] river artery HTN (hypertension) Historical No qualifying data [...] mg= 1 (more content not included)... Normal [facility] Comment on above: Result Comment: Elec tronically [...] II, MD, PHD at 09-Aug-2024 08:45:09 AM [facility] Normal Not Available Comment on above: [...] as indicated. [1] Assessment/Plan 1. CAD in [place] river artery (I25.10: Atherosclerotic heart disease of [place] river coronary artery without angina pectoris) Exertional dyspnea [...] A PONCE (more content not included)... Normal [facility] Comment on above: Result Comment: Elec tronically Signed By: Genevieve CURRIE, Tam Spain\.br\Date and Time Signed: 07/20/24 10:27 EST Office Visiton 01-20-2024 Follow-up visit [id number] Beth Starkey 1940 F Date Provider Department Center 01/20/2024 [id number] HOPE MONSE Delgado [facility] Family History Problem Relation Age of Onset Heart attack Father Diabetes Sister Coronary artery disease Brother Aneurysm Brother Diabetes Brother Family Status - Relation Status Age at Father Sister Brother Level of Service:06534 [place] OFFICE/OUTPATIENT ESTABLISHED MOD MDM 30 MIN Reason for Visit and Comments: Hyperlipidemia [182] Hypertension [763807] - Pt had a abnormal stress. Patient used the restroom in the ED right before apt and had a fall. She denies lightheadedness/dizz iness and syncope. She denies hiting her head. Shortness of Breath [255268] Normal [facility] Office Visiton 01-09-2024 Follow-up visit [id number] Beth Starkey 1940 F Date Provider Department Center 01/09/2024 [id number], SAMDANNIELLE MONES [facility] Family History Problem Relation Age of Onset Heart attack Father Diabetes Sister Coronary artery disease Brother Aneurysm Brother Diabetes Brother Family Status - Relation Status Age at Father Sister Brother Level of Service:09559 [place] OFFICE/OUTPATIENT NEW MODERATE MDM 45 MINUTES Reason for Visit and Comments: New Patient [632] - Pt complains of sob. Normal [facility] Heart and Vascular Office/Cl [...] aneurysm, without rupture, unspecified) 2. CAD in [place] river artery (I25.10: Atherosclerotic heart disease of [place] coronary artery without angina pectoris) 3. HTN [...] CURRIE, Edinson Kuhn 09/24/2022 10:55 EDT Normal [facility] Comment on above: Result Comment: Elec tronically Signed By: Genevieve CURRIE, Tam Spain\.ede\Date and Time Signed: 12/16/23 15:48 EDT REILLYon 05-03-2023 CNDANIEL Office Visit (YURI) BETH STARKEY ([id number]) 1940 F Date Time Provider Department 05/03/23 12:00 PM JENA HICKS During your visit today, we recorded the following information about you: Temperature Pulse Respiration Blood pressure 98.3 degrees 86/minute 16/minute 103/59 Weight Height 65.8 kg 1.524 m Jena Hicks MD 05/03/2023 3:31 PM Signed [facility] [place] DEPARTMENT OF VASCULAR SURGERY OUTPATIENT VISIT DATE [...] PHYSICAL E (more content not included)... Normal [facility] CTA ABD/PELV WO/W IVCONon CTA ABD/PELV WO/W IVCON * * *Final Report* * * DATE OF EXAM: May 03 2023 1:27PM [facility] 0467 - CTA ABD/PELV WO/W [...] stable BONES: degenerative changes of the spine Assistant Service Manager (topogram) images: No additional findings. IMPRESSION: [...] (more content not included)... Invalid Interpretation Code [facility] CTA CHEST (NONGATED) WO/W IV CONon 05-03-2023 CTA CHEST (NONGATED) WO/W IVCON * * *Final Report* * * DATE OF EXAM: May 03 2023 1:27PM [facility] 0124 - CTA CHEST (NONGATED) [...] stable BONES: degenerative changes of the spine Assistant Service Manager (topogram) images: No additional findings. IMPRESSION: [...] (more content not included)... Invalid Interpretation Code [facility] HISTORY PHYSICALon HISTORY PHYSICAL HNO ID: [id number] Author: Jena Hicks MD Service: ? Author Type: Physician Type: HANDP Filed: 05/03/2023 3:31 PM Note Text: [facility] [place] DEPARTMENT OF VASCULAR SURGERY OUTPATIENT VISIT DATE [...] EOM, pupils (more content not included)... Normal [facility] 04-25-2023 [facility] Telephone (PODCCP) BETH STARKEY ([id number]) 1940 F Date Time Provider Department 04/25/23 NO PCP PODCCP During your visit today, we recorded the following information about you: Med Quiros 04/25/2023 4:23 PM Signed Reason for call: Ms Starkey called,and she would like to schedule an appointment with vascular surgery Referred by Dr Judit [facility] and cell number: [phone] Diagnosis: AAA Kind Regards Med Allergies As of Date: 04/25/2023 (Not on File) Date Reviewed: Never Reviewed Reason for Visit: Appointment [186] Problem List As Of Date: 04/25/2023 (None) Encounter Status:Closed by MED QUIROS on 04/25/23 [facility]22[facility]2023 [facility] (REFPHY[facility] BETH STARKEY ([id number]) 1940 F Date Time Provider Department 04/22/23 NO ONE (HISTORICAL) REFPHY During your visit today, we recorded the following information about you: Patrizia Orozco 04/22/2023 10:06 AM Signed Patient: Beth Starkey Date of : 1940 Patient phone number: [phone] Referring Provider for the encounter: Marck Tate [...] Status:Closed by PATRIZIA OROZCO on 04/22/23 Normal [facility] CHEMISTRYOrdered By: SYSTEM SYSTEM on 09-24-2022 Creatinine [Mass/Vol] 0.8 mg/dL Normal 0.5 - 1.3 mg/dL [facility] Remisol GFR/1.73 sq M.predicted among non-blacks MDRD (S/P/Bld) [Vol rate/Area] 74 mL/min/1.73 m2 Normal >=59mL/min/1. 73 m2 [facility] Chem S CT CHEST WO CONon 08-02-2022 [...] KAYY KAUR Date: 2022-08-02 10:52 Normal [facility] C. DIFF PCRon 07-28-2022 C. DIFFICILE PCR Negative Normal NEGATIVE [facility] Comment on above: Performed By: #### C DIFPOC #### [facility] [address] [place] [address] Dr. Spencer Braun OCC BLD IMMUNO SCREENon OCCULT BLOOD Negative Normal NEGATIVE [facility] Comment on above: Performed By: #### C BC #### [facility] [address] [place] [address] Dr. Spencer Braun INSULINon 07-15-2022 Insulin 17.7 uIU/mL Normal 2.6-24.9 [facility] Comment on above: Performed By: #### I NSULIN ####[facility] [address] [place] [address]Dr. Spencer Braun BNPon 07-14-2022 Natriuretic peptide B (Bld) [Mass/Vol] 197.0 pg/mL Normal <=1,800.0 [facility] Comment on above: Performed By: #### B TRANSPLANT NURSE PRACTITIONER, LIPID, CMP, T7, TSH #### [facility] [address] [address] [address] Spencer Braun CBC AUTO DIFFon 07-14-2022 BASO # 0.1 103/ul Normal 0.0-0.1 [facility] Comment on above: Performed By: #### C BC #### [facility] [address] [place] [address] Dr. Spencer Braun Basophils/100 WBC (Bld) 0.9 % Normal 0.2-2.0 [facility] Comment on above: Performed By: #### C BC #### [facility] [address] [place] [address] Dr. Spencer Braun EO # 0.2 103/ul Normal 0.0-0.7 [facility] Comment on above: Performed By: #### C BC #### [facility] [address] [place] [address] Dr. Spencer Braun Eosinophils/100 WBC (Bld) 2.5 % Normal 0.9-7.0 [facility] Comment on above: Performed By: #### C BC #### [facility] [address] [place] [address] Dr. Spencer Braun Erythrocyte distribution width (RBC) [Ratio] 13.8 % Normal 11.0-15.0 [facility] Comment on above: Performed By: #### C BC #### [facility] [address] [place] [address] Dr. Spencer Braun Hematocrit (Bld) [Volume fraction] 45.1 % Normal 36.0-48.0 [facility] Comment on above: Performed By: #### C BC #### [facility] [address] [place] [address] Dr. Spencer Braun Hemoglobin (Bld) [Mass/Vol] 14.7 g/dL Normal 12.0-16.0 [facility] Comment on above: Performed By: #### C BC #### [facility] [address] [place] [address] Dr. Spencer Braun IG # 0.04 10e3/ul Critically high 0.00-0.03 [facility] Comment on above: Performed By: #### C BC #### [facility] [address] [place] [address] Dr. Spencer Braun IG % 0.5 % Normal 0.0-0.5 [facility] Comment on above: Performed By: #### C BC #### [facility] [address] [place] [address] Dr. Spencer Braun LYMPH # 1.6 103/ul Normal 1.2-3.8 [facility] Comment on above: Performed By: #### C BC #### [facility] [address] [place] [address] Dr. Spencer Braun Lymphocytes/100 WBC (Bld) 20.4 % Critically low 20.5-60.0 [facility] Comment on above: Performed By: #### C BC #### [facility] [address] [place] [address] Dr. Spencer Braun MANUAL DIFF REQ NO Normal [facility] Comment on above: Performed By: #### C BC #### [facility] [address] [place] [address] Dr. Spencer Braun MCH (RBC) [Entitic mass] 28.8 pg Normal 26.7-34.0 [facility] Comment on above: Performed By: #### C BC #### [facility] [address] [place] [address] Dr. Spencer Braun MCHC (RBC) [Mass/Vol] 32.6 g/dL Normal 29.9-35.2 [facility] Comment on above: Performed By: #### C BC #### [facility] [address] [place] [address] Dr. Spencer Braun MCV (RBC) [Entitic vol] 88.3 fL Normal 81.0-99.0 [facility] Comment on above: Performed By: #### C BC #### [facility] [address] [place] [address] Dr. Spencer Braun MONO # 0.5 103/ul Normal 0.3-0.8 [facility] Comment on above: Performed By: #### C BC #### [facility] [address] [place] [address] Dr. Spencer Braun Monocytes/100 WBC (Bld) 6.5 % Normal 1.7-12.0 [facility] Comment on above: Performed By: #### C BC #### [facility] [address] [place] [address] Dr. Spencer Braun NEUT # 5.4 103/ul Normal 1.4-6.5 [facility] Comment on above: Performed By: #### C BC #### [facility] [address] [address] [address] Spencer Braun Neutrophils/100 WBC (Bld) 69.2 % Normal 43.0-75.0 [facility] Comment on above: Performed By: #### C BC #### [facility] [address] [address] [address] Spencer Braun Platelet mean volume (Bld) [Entitic vol] 9.1 fL Critically low 9.5-13.5 [facility] Comment on above: Performed By: #### C BC #### [facility] [address] [address] [address] Spencer Braun PLT 190 103/ul Normal 150-450 [facility] Comment on above: Performed By: #### C BC #### [facility] [address] [place] [address] Dr. Spencer Braun RBC 5.11 106/ul Normal 4.20-5.40 [facility] Comment on above: Performed By: #### C BC #### [facility] [address] [address] [address] Spencer Braun WBC 7.7 103/ul Normal 4.0-11.0 [facility] Comment on above: Performed By: #### C BC #### [facility] [address] [address] [address] Spencer Braun FREE THYROXINE INDEX T7on FTI 2.87 Normal 1.30-4.50 [facility] Comment on above: Performed By: #### B TRANSPLANT NURSE PRACTITIONER, LIPID, CMP, T7, TSH ####[facility] [address] [place] [id number]. Spencer Braun T3U 33.0 % Normal 30.0-39.0 [facility] Comment on above: Performed By: #### B TRANSPLANT NURSE PRACTITIONER, LIPID, CMP, T7, TSH ####[facility] [address] [place] [id number]. Spencer Braun T4 [Mass/Vol] 8.70 ug/dL Normal 4.80-13.90 [facility] Comment on above: Performed By: #### B TRANSPLANT NURSE PRACTITIONER, LIPID, CMP, T7, TSH ####[facility] [address] [place], [place] [address]PgManish Braun GLYCOHEMOGLOBIN A1Con 2022 ADA RECOMMENDATION SEE BELOW Normal [facility] Comment on above: Result Comment: ADA RECOMMENDED LIMIT 4.0 - 6.0 ADA THERAPEUTIC TARGET < 7.0 ACTION SUGGESTED > 7.0 Performed By: #### A 1C ####[facility] [address] [place] [id number] Braun Glucose [Mass/Vol] 123 mg/dL Normal [facility] Comment on above: Performed By: #### A 1C ####[facility] [address] [place] [id number] Braun HbA1c (Bld) [Mass fraction] 5.9 % Normal 4.5-6.2 [facility] Comment on above: Performed By: #### A 1C ####[facility] [address] [place] [id number] Braun IRONon 07-14-2022 Iron [Mass/Vol] 70.0 ug/dL Normal 50.0-170.0 [facility] Comment on above: Performed By: #### V ITAD, IRON #### [facility] [address] [place], [place] [address] Dr. Spencer Braun LIPID PROFILEon 07-14-2022 CHOL-HDL RATIO NORM SEE BELOW Normal [facility] Comment on above: Result Comment: 3.3 - 4.4 LOW RISK 4.4 - 7.1 AVERAGE RISK 7.1 - 11.0 MODERATE RISK >11.0 HIGH RISK Performed By: #### B TRANSPLANT NURSE PRACTITIONER, LIPID, CMP, T7, TSH ####[facility] [address] [place], [place] [address]CwManish Braun Cholesterol [Mass/Vol] 180 mg/dL Normal <=200 [facility] Comment on above: Performed By: #### B TRANSPLANT NURSE PRACTITIONER, LIPID, CMP, T7, TSH ####[facility] [address] [place] [id number] Braun Cholesterol in HDL [Mass/Vol] 50 mg/dL Normal 40-60 [facility] Comment on above: Performed By: #### B TRANSPLANT NURSE PRACTITIONER, LIPID, CMP, T7, TSH ####[facility] [address] [place] [id number]. Spencer Braun Cholesterol in LDL [Mass/Vol] 105.8 mg/dL Normal [facility] Comment on above: Performed By: #### B TRANSPLANT NURSE PRACTITIONER, LIPID, CMP, T7, TSH ####[facility] [address] [place] [id number]. Spencer Braun Cholesterol.total/Ch olesterol in HDL [Mass ratio] 3.6 {ratio} Normal [facility] Comment on above: Performed By: #### B TRANSPLANT NURSE PRACTITIONER, LIPID, CMP, T7, TSH ####[facility] [address] [place] [address]Dr. Spencer Braun HDL NORMAL > or = 60 mg/dl - LOW CARDIOVASCULAR RISK <40 mg/dl - HIGH CARDIOVASCULAR RISK Normal [facility] Comment on above: Performed By: #### B TRANSPLANT NURSE PRACTITIONER, LIPID, CMP, T7, TSH ####[facility] [address] [place] [address]Dr. Spencer Braun LDL CALC NORMAL SEE BELOW Normal [facility] Comment on above: Result Comment: <100 mg/dl OPTIMAL 100 - 129 mg/dl NEAR OR ABOVE OPTIMAL 130 - 159 mg/dl BORDERLINE HIGH 160 - 189 mg/dl HIGH >190 mg/dl VERY HIGH Performed By: #### B TRANSPLANT NURSE PRACTITIONER, LIPID, CMP, T7, TSH ####[facility] [address] [place] [id number]. Spencer Braun Triglyceride [Mass/Vol] 121 mg/dL Normal <=150 [facility] Comment on above: Performed By: #### B TRANSPLANT NURSE PRACTITIONER, LIPID, CMP, T7, TSH ####[facility] [address] [place] [address]Dr. Spencer Braun VLDL CALC 24.2 mg/dL Normal [facility] Comment on above: Performed By: #### B TRANSPLANT NURSE PRACTITIONER, LIPID, CMP, T7, TSH ####[facility] [address] [place] [address]Dr. Spencer Braun PROF 14(COMP METB)on 023 Albumin [Mass/Vol] 3.8 g/dL Normal 3.4-5.0 [facility] Comment on above: Performed By: #### B TRANSPLANT NURSE PRACTITIONER, LIPID, CMP, T7, TSH #### [facility] [address] [address] [address] Spencer Braun Albumin/Globulin [Mass ratio] 1.0 {ratio} Normal [facility] Comment on above: Performed By: #### B TRANSPLANT NURSE PRACTITIONER, LIPID, CMP, T7, TSH #### [facility] [address] [place] [address] Dr. Spencer Braun ALP [Catalytic activity/Vol] 135 U/L Critically high 46-116 [facility] Comment on above: Performed By: #### B TRANSPLANT NURSE PRACTITIONER, LIPID, CMP, T7, TSH #### [facility] [address] [place] [address] Dr. Spencer Braun ALT [Catalytic activity/Vol] 20 U/L Normal 14-59 [facility] Comment on above: Performed By: #### B TRANSPLANT NURSE PRACTITIONER, LIPID, CMP, T7, TSH #### [facility] [address] [address] [address] Spencer Braun Anion gap [Moles/Vol] 8.4 mmol/L Normal [facility] Comment on above: Performed By: #### B TRANSPLANT NURSE PRACTITIONER, LIPID, CMP, T7, TSH #### [facility] [address] [place] [address] Dr. Spencer Braun AST [Catalytic activity/Vol] 14 U/L Critically low 15-37 [facility] Comment on above: Performed By: #### B TRANSPLANT NURSE PRACTITIONER, LIPID, CMP, T7, TSH #### [facility] [address] [address] [address] Spencer Braun Bilirubin [Mass/Vol] 0.4 mg/dL Normal 0.2-1.0 [facility] Comment on above: Performed By: #### B TRANSPLANT NURSE PRACTITIONER, LIPID, CMP, T7, TSH #### [facility] [address] [place] [address] Dr. Spencer Braun Calcium [Mass/Vol] 9.5 mg/dL Normal 8.5-10.1 [facility] Comment on above: Performed By: #### B TRANSPLANT NURSE PRACTITIONER, LIPID, CMP, T7, TSH #### [facility] [address] [place] [address] Dr. Spencer Braun Chloride [Moles/Vol] 104 mmol/L Normal 98-107 [facility] Comment on above: Performed By: #### B TRANSPLANT NURSE PRACTITIONER, LIPID, CMP, T7, TSH #### [facility] [address] [place] [address] Dr. Spencer Braun CO2 [Moles/Vol] 32.0 mmol/L Normal 21.0-32.0 [facility] Comment on above: Performed By: #### B TRANSPLANT NURSE PRACTITIONER, LIPID, CMP, T7, TSH #### [facility] [address] [place] [address] Dr. Spencer Braun Creatinine [Mass/Vol] 0.72 mg/dL Normal 0.55-1.02 [facility] Comment on above: Performed By: #### B TRANSPLANT NURSE PRACTITIONER, LIPID, CMP, T7, TSH #### [facility] [address] [place] [address] Dr. Spencer Braun EGFR-AF KOSOVAN >60 Normal >=60 [facility] Comment on above: Performed By: #### B TRANSPLANT NURSE PRACTITIONER, LIPID, CMP, T7, TSH #### [facility] [address] [place] [address] Dr. Spencer Braun EGFR-NON AF KOSOVAN >60 Normal >=60 [facility] Comment on above: Performed By: #### B TRANSPLANT NURSE PRACTITIONER, LIPID, CMP, T7, TSH #### [facility] [address] [place] [address] Dr. Spencer Braun Globulin (S) [Mass/Vol] 3.9 g/dL Normal [facility] Comment on above: Performed By: #### B TRANSPLANT NURSE PRACTITIONER, LIPID, CMP, T7, TSH #### [facility] [address] [place] [address] Dr. Spencer Braun Glucose [Mass/Vol] 127 mg/dL Critically high 74-106 [facility] Comment on above: Performed By: #### B TRANSPLANT NURSE PRACTITIONER, LIPID, CMP, T7, TSH #### [facility] [address] [place] [address] Dr. Spencer Braun Potassium [Moles/Vol] 4.4 mmol/L Normal 3.5-5.1 [facility] Comment on above: Performed By: #### B TRANSPLANT NURSE PRACTITIONER, LIPID, CMP, T7, TSH #### [facility] [address] [place] [address] Dr. Spencer Braun Protein [Mass/Vol] 7.7 g/dL Normal 6.4-8.2 [facility] Comment on above: Performed By: #### B TRANSPLANT NURSE PRACTITIONER, LIPID, CMP, T7, TSH #### [facility] [address] [place] [address] Dr. Spencer Braun Sodium [Moles/Vol] 140 mmol/L Normal 136-145 [facility] Comment on above: Performed By: #### B TRANSPLANT NURSE PRACTITIONER, LIPID, CMP, T7, TSH #### [facility] [address] [place] [address] Dr. Spencer Braun Urea nitrogen [Mass/Vol] 18.0 mg/dL Normal 7.0-18.0 [facility] [facility] Comment on above: Performed By: #### B TRANSPLANT NURSE PRACTITIONER, LIPID, CMP, T7, TSH #### [facility] [address] [place] [address] Dr. Spencer Braun Urea nitrogen/Creatinine [Mass ratio] 25.0 mg/mg Normal [facility] Comment on above: Performed By: #### B TRANSPLANT NURSE PRACTITIONER, LIPID, CMP, T7, TSH #### [facility] [address] [place] [address] Dr. Spencer Braun TSHon 07-14-2022 TSH 1.760 uIU/mL Normal 0.358-3.740 [facility] Comment on above: Performed By: #### B TRANSPLANT NURSE PRACTITIONER, LIPID, CMP, T7, TSH #### [facility] [address] [place] [address] Dr. Spencer Braun VITAMIN D 25 OHon 07-14-2022 VIT D 25-OH 85.7 ng/mL Normal [facility] Comment on above: Performed By: #### V ITAD, IRON #### [facility] [address] [place] [address] Dr. Spencer Braun VIT D RANGES SEE BELOW Normal [facility] Comment on above: Result Comment: <20 ng/mL Vit D deficient 20 - <30 ng/mL Vit D insufficient 30 - 100 ng/mL Vit D sufficient >100 ng/mL Potential Toxicity Performed By: #### V ITAD, IRON #### [facility] [address] [place] [address] Dr. Spencer Braun CBC AUTO DIFFon 04-30-2022 BASO # 0.1 103/ul Normal 0.0-0.1 [facility] Comment on above: Performed By: #### C BC #### [facility] [address] [place] [address] Dr. Spencer Braun Basophils/100 WBC (Bld) 0.9 % Normal 0.2-2.0 [facility] Comment on above: Performed By: #### C BC #### [facility] [address] [place] [address] Dr. Spencer Braun EO # 0.2 103/ul Normal 0.0-0.7 [facility] Comment on above: Performed By: #### C BC #### [facility] [address] [place] [address] Dr. Spencer Braun Eosinophils/100 WBC (Bld) 2.1 % Normal 0.9-7.0 [facility] Comment on above: Performed By: #### C BC #### [facility] [address] [place] [address] Dr. Spencer Braun Erythrocyte distribution width (RBC) [Ratio] 13.9 % Normal 11.0-15.0 [facility] Comment on above: Performed By: #### C BC #### [facility] [address] [place] [address] Dr. Spencer Braun Hematocrit (Bld) [Volume fraction] 46.2 % Normal 36.0-48.0 [facility] Comment on above: Performed By: #### C BC #### [facility] [address] [place] [address] Dr. Spencer Braun Hemoglobin (Bld) [Mass/Vol] 15.1 g/dL Normal 12.0-16.0 [facility] Comment on above: Performed By: #### C BC #### [facility] [address] [place] [address] Dr. Spencer Braun IG # 0.05 10e3/ul Critically high 0.00-0.03 [facility] Comment on above: Performed By: #### C BC #### [facility] [address] [place] [address] Dr. Spencer Braun IG % 0.6 % Critically high 0.0-0.5 [facility] Comment on above: Performed By: #### C BC #### [facility] [address] [place] [address] Dr. Spencer Braun LYMPH # 1.7 103/ul Normal 1.2-3.8 [facility] Comment on above: Performed By: #### C BC #### [facility] [address] [place] [address] Dr. Spencer Braun Lymphocytes/100 WBC (Bld) 20.3 % Critically low 20.5-60.0 [facility] Comment on above: Performed By: #### C BC #### [facility] [address] [place] [address] Dr. Spencer Braun MANUAL DIFF REQ NO Normal [facility] Comment on above: Performed By: #### C BC #### [facility] [address] [place] [address] Dr. Spencer Braun MCH (RBC) [Entitic mass] 28.8 pg Normal 26.7-34.0 [facility] Comment on above: Performed By: #### C BC #### [facility] [address] [place] [address] Dr. Spencer Braun MCHC (RBC) [Mass/Vol] 32.7 g/dL Normal 29.9-35.2 [facility] Comment on above: Performed By: #### C BC #### [facility] [address] [place] [address] Dr. Spencer Braun MCV (RBC) [Entitic vol] 88.2 fL Normal 81.0-99.0 [facility] Comment on above: Performed By: #### C BC #### [facility] [address] [address] [address] Spencer Braun MONO # 0.6 103/ul Normal 0.3-0.8 [facility] Comment on above: Performed By: #### C BC #### [facility] [address] [address] [address] Spencer Braun Monocytes/100 WBC (Bld) 7.1 % Normal 1.7-12.0 [facility] Comment on above: Performed By: #### C BC #### [facility] [address] [place] [address] Dr. Spencer Braun NEUT # 5.7 103/ul Normal 1.4-6.5 [facility] Comment on above: Performed By: #### C BC #### [facility] [address] [place] [address] Dr. Spencer Braun Neutrophils/100 WBC (Bld) 69.0 % Normal 43.0-75.0 [facility] Comment on above: Performed By: #### C BC #### [facility] [address] [place] [address] Dr. Spencer Braun Platelet mean volume (Bld) [Entitic vol] 9.2 fL Critically low 9.5-13.5 [facility] Comment on above: Performed By: #### C BC #### [facility] [address] [place] [address] Dr. Spencer Braun PLT 180 103/ul Normal 150-450 [facility] Comment on above: Performed By: #### C BC #### [facility] [address] [place] [address] Dr. Spencer Braun RBC 5.24 106/ul Normal 4.20-5.40 [facility] Comment on above: Performed By: #### C BC #### [facility] [address] [place] [address] Dr. Spencer Braun WBC 8.2 103/ul Normal 4.0-11.0 [facility] Comment on above: Performed By: #### C BC #### [facility] [address] [place], [place] [address] Dr. Spencer Braun FREE T3on 04-30-2022 FREE T3 2.98 pg/mlL Normal 2.18-3.98 [facility] Comment on above: Performed By: #### L IPID, TSH, T4, FT3, CMP ####[facility] [address] [id number] Braun GLYCOHEMOGLOBIN A1Con 2021 ADA RECOMMENDATION SEE BELOW Normal [facility] Comment on above: Result Comment: ADA RECOMMENDED LIMIT 4.0 - 6.0 ADA THERAPEUTIC TARGET < 7.0 ACTION SUGGESTED > 7.0 Performed By: #### A 1C ####[facility] [address] [address]DrManish Braun Glucose [Mass/Vol] 134 mg/dL Normal [facility] Comment on above: Performed By: #### A 1C ####[facility] [address] [address]DrManish Braun HbA1c (Bld) [Mass fraction] 6.3 % Critically high 4.5-6.2 [facility] Comment on above: Performed By: #### A 1C ####[facility] [address] [address]Dr. Spencer Braun LIPID PROFILEon 04-30-2022 CHOL-HDL RATIO NORM SEE BELOW Normal [facility] Comment on above: Result Comment: 3.3 - 4.4 LOW RISK 4.4 - 7.1 AVERAGE RISK 7.1 - 11.0 MODERATE RISK >11.0 HIGH RISK Performed By: #### L IPID, TSH, T4, FT3, CMP ####[facility] [address] [id number] Braun Cholesterol [Mass/Vol] 177 mg/dL Normal <=200 [facility] Comment on above: Performed By: #### L IPID, TSH, T4, FT3, CMP ####[facility] [address] [id number] Braun Cholesterol in HDL [Mass/Vol] 56 mg/dL Normal 40-60 [facility] Comment on above: Performed By: #### L IPID, TSH, T4, FT3, CMP ####[facility] [address] [address]Dr. Spencer Braun Cholesterol in LDL [Mass/Vol] 97.8 mg/dL Normal [facility] Comment on above: Performed By: #### L IPID, TSH, T4, FT3, CMP ####[facility] [address] [address]Dr. Spencer Braun Cholesterol.total/Ch olesterol in HDL [Mass ratio] 3.2 {ratio} Normal [facility] Comment on above: Performed By: #### L IPID, TSH, T4, FT3, CMP ####[facility] [address] [place], [place] [address]Dr. Spencer Braun HDL NORMAL > or = 60 mg/dl - LOW CARDIOVASCULAR RISK <40 mg/dl - HIGH CARDIOVASCULAR RISK Normal [facility] Comment on above: Performed By: #### L IPID, TSH, T4, FT3, CMP ####[facility] [address] [place], [place] [address]Dr. Spencer Braun LDL CALC NORMAL SEE BELOW Normal [facility] Comment on above: Result Comment: <100 mg/dl OPTIMAL 100 - 129 mg/dl NEAR OR ABOVE OPTIMAL 130 - 159 mg/dl BORDERLINE HIGH 160 - 189 mg/dl HIGH >190 mg/dl VERY HIGH Performed By: #### L IPID, TSH, T4, FT3, CMP ####[facility] [address] [address]Dr. Spencer Braun Triglyceride [Mass/Vol] 116 mg/dL Normal <=150 [facility] Comment on above: Performed By: #### L IPID, TSH, T4, FT3, CMP ####[facility] [address] [place], [place] [address]Dr. Spencer Braun VLDL CALC 23.2 mg/dL Normal [facility] Comment on above: Performed By: #### L IPID, TSH, T4, FT3, CMP ####[facility] [address] [address]Dr. Spencer Braun PROF 14(COMP METB)on 022 Albumin [Mass/Vol] 3.8 g/dL Normal 3.4-5.0 [facility] Comment on above: Performed By: #### L IPID, TSH, T4, FT3, CMP ####[facility] [address] [address]Dr. Spencer Braun Albumin/Globulin [Mass ratio] 0.9 {ratio} Normal [facility] Comment on above: Performed By: #### L IPID, TSH, T4, FT3, CMP ####[facility] [address] [address]Dr. Spencer Braun ALP [Catalytic activity/Vol] 143 U/L Critically high 46-116 [facility] Comment on above: Performed By: #### L IPID, TSH, T4, FT3, CMP ####[facility] [address] [place], [place] [address]Dr. Spencer Braun ALT [Catalytic activity/Vol] 19 U/L Normal 14-59 [facility] Comment on above: Performed By: #### L IPID, TSH, T4, FT3, CMP ####[facility] [address] [address]Dr. Spencer Braun Anion gap [Moles/Vol] 12.1 mmol/L Normal [facility] Comment on above: Performed By: #### L IPID, TSH, T4, FT3, CMP ####[facility] [address] [place], [place] [address]Dr. Spencer Braun AST [Catalytic activity/Vol] 17 U/L Normal 15-37 [facility] Comment on above: Performed By: #### L IPID, TSH, T4, FT3, CMP ####[facility] [address] [place], [place] [address]Dr. Spencer Braun Bilirubin [Mass/Vol] 0.3 mg/dL Normal 0.2-1.0 [facility] Comment on above: Performed By: #### L IPID, TSH, T4, FT3, CMP ####[facility] [address] [address]Dr. Spencer Braun Calcium [Mass/Vol] 9.5 mg/dL Normal 8.5-10.1 [facility] Comment on above: Performed By: #### L IPID, TSH, T4, FT3, CMP ####[facility] [address] [address]Dr. Spencer Braun Chloride [Moles/Vol] 102 mmol/L Normal 98-107 [facility] Comment on above: Performed By: #### L IPID, TSH, T4, FT3, CMP ####[facility] [address] [address]Dr. Spencer Braun CO2 [Moles/Vol] 32.6 mmol/L Critically high 21.0-32.0 [facility] Comment on above: Performed By: #### L IPID, TSH, T4, FT3, CMP ####[facility] [address] [place], [place] [address]Dr. Spencer Braun Creatinine [Mass/Vol] 0.69 mg/dL Normal 0.55-1.02 [facility] Comment on above: Performed By: #### L IPID, TSH, T4, FT3, CMP ####[facility] [address] [place], [place] [address]Dr. Spencer Braun EGFR-AF KOSOVAN >60 Normal >=60 [facility] Comment on above: Performed By: #### L IPID, TSH, T4, FT3, CMP ####[facility] [address] [place], [place] [address]Dr. Spencer Braun EGFR-NON AF KOSOVAN >60 Normal >=60 [facility] Comment on above: Performed By: #### L IPID, TSH, T4, FT3, CMP ####[facility] [address] [place], [place] [address]Dr. Spencer Braun Globulin (S) [Mass/Vol] 4.1 g/dL Normal [facility] Comment on above: Performed By: #### L IPID, TSH, T4, FT3, CMP ####[facility] [address] [address]Dr. Spencer Braun Glucose [Mass/Vol] 108 mg/dL Critically high 74-106 [facility] Comment on above: Performed By: #### L IPID, TSH, T4, FT3, CMP ####[facility] [address] [place], [place] [address]Dr. Spencer Braun Potassium [Moles/Vol] 4.7 mmol/L Normal 3.5-5.1 [facility] Comment on above: Performed By: #### L IPID, TSH, T4, FT3, CMP ####[facility] [address] [place], [place] [address]Dr. Spencer Braun Protein [Mass/Vol] 7.9 g/dL Normal 6.4-8.2 [facility] Comment on above: Performed By: #### L IPID, TSH, T4, FT3, CMP ####[facility] [address] [place], [place] [address]Dr. Spencer Braun Sodium [Moles/Vol] 142 mmol/L Normal 136-145 [facility] Comment on above: Performed By: #### L IPID, TSH, T4, FT3, CMP ####[facility] [address] [place], [place] [address]Dr. Spencer Braun Urea nitrogen [Mass/Vol] 19.0 mg/dL Critically high 7.0-18.0 [facility] Comment on above: Performed By: #### L IPID, TSH, T4, FT3, CMP ####[facility] [address] [place], [place] [address]Dr. Spencer Braun Urea nitrogen/Creatinine [Mass ratio] 27.5 mg/mg Normal [facility] Comment on above: Performed By: #### L IPID, TSH, T4, FT3, CMP ####[facility] [address] [place], [place] [address]Dr. Spencer Braun T4on 04-30-2022 T4 [Mass/Vol] 8.30 ug/dL Normal 4.80-13.90 [facility] Comment on above: Performed By: #### L IPID, TSH, T4, FT3, CMP ####[facility] [address] [place], [place] [address]OnManish Braun TSHon 04-30-2022 TSH 1.777 uIU/mL Normal 0.358-3.740 [facility] Comment on above: Performed By: #### L IPID, TSH, T4, FT3, CMP ####[facility] [address] [place], [place] [address]QxManish Braun VITAMIN D 25 OHon 04-30-2022 VIT D 25-OH 72.1 ng/mL Normal [facility] Comment on above: Performed By: #### V ITAD #### [facility] [address] [address] [address] Spencer Braun VIT D RANGES SEE BELOW Normal [facility] Comment on above: Result Comment: <20 ng/mL Vit D deficient 20 - <30 ng/mL Vit D insufficient 30 - 100 ng/mL Vit D sufficient >100 ng/mL Potential Toxicity Performed By: #### V ITAD #### [facility] [address] [place], [place] [address] Dr. Spencer Braun MG MAMM SCREEN 3D AWAIS CADon 02-16-2022 MG MAMM SCREEN 3D AWAIS CAD Patient: BETH STARKEY Exam Date: 02/16/2022 : 1940 Gender:F Ordering : DR MARCK TATE . Admission #: [id number] Family : Order #: [id number] CLICK HERE TO VIEW EXAM RADIOLOGY REPORT [...] prostate cancer at age 71. LOCATION: [facility] BREAST COMPOSITION: Heterogeneously dense,which may obscure [...] MD on 02/17/2022 at 07:39 Normal [facility] Vital Signs Date Time Vital Sign Value Performing Clinician Tony jenkins 09-28-2024 14:15-0400 Measurement/Vitals Comment Unable to obtain; Telephone visit. Nati Petty [facility] 08-15-2024 14:13-0400 Body mass index (BMI) [Ratio] 29.63 kg/m2 Timo Ihsan DO Work Phone: [facility] 08-15-2024 14:13-0400 Body weight 71.12 kg Timo Ihsan DO Work Phone: [facility] 08-15-2024 14:13-0400 Diastolic blood pressure 80 mm[Hg] Timo Ihsan DO Work Phone: [facility] 08-15-2024 14:13-0400 Systolic blood pressure 114 mm[Hg] Timo Ihsan DO Work Phone: [facility] 07-17-2024 15:08-0500 Body mass index (BMI) [Ratio] 29.44 kg/m2 Timo Ihsan DO Work Phone: [facility] 07-17-2024 15:08-0500 Body weight 70.67 kg Timo Ihsan DO Work Phone: [facility] 07-17-2024 15:08-0500 Diastolic blood pressure 70 mm[Hg] Timo Ihsan DO Work Phone: [facility] 07-17-2024 15:08-0500 Systolic blood pressure 120 mm[Hg] Timo Ihsan DO Work Phone: [facility] 12-16-2023 15:18-0400 Diastolic blood pressure 68 mm[Hg] Tam Mauricionus [facility] 12-16-2023 15:18-0400 Systolic blood pressure 118 mm[Hg] Tam Mauricionus [facility] 05-12-2023 10:13-0500 Diastolic blood pressure 72 mm[Hg] Sha Barrerasilke [facility] 05-12-2023 10:13-0500 Heart rate 94 /min Sha Vallejo [facility] 05-12-2023 10:13-0500 SaO2% (BldA) [Mass fraction] 90 % Sha Rodpippasilke [facility] 05-12-2023 10:13-0500 Systolic blood pressure 130 mm[Hg] Sha Barrerasilke [facility] 05-03-2023 12:24-0500 Diastolic blood pressure [...] 09-06-2022 09:39-0400 Blood Pressure Location Dayron Jorgensen [facility] 09-06-2022 09:39-0400 Diastolic blood pressure 81 mm[Hg] Dayron Davidsonan [facility] 09-06-2022 09:39-0400 Heart rate 103 /min Dayron Davidsonan [facility] 09-06-2022 09:39-0400 SaO2% (BldA) [Mass fraction] 90 % Dayron Davidsonan [facility] 09-06-2022 09:39-0400 Systolic blood pressure 126 mm[Hg] [facility] Encounters Encounter Date Encounter Type Care Provider Facility Start: 12-07-2024 End: 12-07-2024 ambulatory XXXX NONE Facility:[facility] Start: 09-28-2024 End: 09-28-2024 Patient encounter procedure Nati Petty [facility] Start: 09-28-2024 End: 09-28-2024 ambulatory PA-C Nati Petty Facility:[facility] Start: 08-16-2024 End: 09-28-2024 Patient encounter procedure Jus Del Castillo [facility] Start: 08-15-2024 End: 08-15-2024 Bamboo flowsheet [...] Start: 07-20-2024 End: 07-20-2024 ambulatory XXXX NONE Facility:[facility] Start: 07-17-2024 End: 07-17-2024 Office outpatient visit [...] End: 07-06-2024 Patient encounter procedure Tam Vallejo [facility] Start: 01-20-2024 End: 01-20-2024 ambulatory [facility] Start: 01-09-2024 End: 01-10-2024 ambulatory [facility] Start: 12-16-2023 End: 12-17-2023 Pre-admission assessment Tam Vallejo [facility] Start: 12-16-2023 End: 12-16-2023 ambulatory XXXX NONE Facility:[facility] Start: 11-09-2023 End: 11-09-2023 ambulatory TIMO CHAMPAGNE Not Available Start: 05-12-2023 End: 05-12-2023 Patient encounter procedure Sha Vallejo [facility] Start: 05-04-2023 Orders Only Jena Hicks MD Work Phone: [facility] Comment on above: 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); Bilateral carotid artery stenosis; Other disorders of arteries, arterioles and capillaries in diseases classified elsewhere (HCC) Start: 05-03-2023 End: 05-03-2023 ambulatory JENA HICKS Facility:[facility] Start: 05-03-2023 End: 05-03-2023 Office outpatient visit 25 minutes Jena Hicks MD Work Phone: [facility] Comment on above: 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) Start: 04-26-2023 Orders Only Jena Hicks MD Work Phone: [facility] Comment on above: Chest pain, unspecif ied type (Primary Dx) Start: 04-25-2023 Telephone encounter No Pcp [employer] [facility] Comment on above: Appointment Start: 04-22-2023 Telephone encounter No One (Historic al) Referring Physician Comment on above: External Referrals/r esources Start: 03-23-2023 End: 03-23-2023 Patient encounter procedure Sha Vallejo [facility] Start: 01-20-2023 End: 01-20-2023 Patient encounter procedure Sha Vallejo [facility] Start: 09-24-2022 End: 09-24-2022 Patient encounter procedure Dayron Jorgensen [facility] Start: 09-06-2022 End: 09-06-2022 Patient encounter procedure Dayron Jorgensen [facility] Start: 08-02-2022 End: 08-03-[address] MARCK TATE . Facility:[facility] Start: 07-28-2022 End: 07-28-[address] MARCK TATE . Facility:[facility] Start: 07-14-2022 End: 07-15-[address] MARCK TATE . Facility:[facility] Start: 04-30-2022 End: 05-01-[address] MARCK TATE . Facility:[facility] Start: 02-16-2022 End: 02-17-[address] MARCK TATE . Facility: Start: 06-17-2017 End: 06-18-2017 Ambulatory DEFAULT PHYSICIAN Facility:[facility] Plan of Treatment Date Care Activity Detail Author Start: 07-04-2029 Urine microalbumin profile DTaP,Tdap,Td Vaccine (2 - Td or Tdap) [facility] Start: 08-15-2024 End: 08-15-2024 Patient encounter procedure 08/15/2024 1:50 PM EDT Office Visit [facility] [address] [place] [address] Timo Champagne, [address], [place] [address] Arrived [facility] Comment on above: Arrived Start: 08-07-2024 End: 08-07-2024 Professional / ancillary services management 08/07/2024 2:30 PM EDT Ancillary Procedure [facility] [address] [place] [address] [facility] Start: 07-17-2024 End: 07-17-2024 Patient encounter procedure 07/17/2024 2:40 PM EST Office Visit [facility] [address] [place] [address] Timo Champagne, DO [address] [place] [address] [place] [address] Arrived [facility] Comment on above: Arrived Start: 07-17-2024 End: 07-17-2025 US Pelvis US Pelvis w/ TV Imaging Routine Cyst of left ovary Expected: 07/17/2024, Expires: 07/17/2025 [facility] Work Phone: Comment on above: Expected: 07/17/2024 , Expires: 07/17/2025 Start: 01-22-2024 Influenza vaccination Influenza Vacc ine (#1) [facility] Start: 01-21-2023 Influenza vaccination Influenza Vacc ine (#1) [facility] Start: 05-23-2022 Advance Directive Discussion Advance Directive Discussion [facility] Start: 05-23-2022 Depression Assessment Depression Ass essment [facility] Start: 03-23-2018 Pneumococcal Vaccine : 65+ Years (2 of 2 - PPSV23 or PCV20) Pneumococcal Vaccine: 65+ Years (2 of 2 - PPSV23 or PCV20) 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 Occurrences starting 05/04/2023 until 06/02/2024 [facility] Work Phone: Comment on above: 1 Occurrences starti ng 05/04/2023 until 06/02/2024 End: 05-25-2024 Ct angiography chest w/contrast/noncontrast CTA CHEST (NONGATED) WO/W IVCON Radiology Routine Chest pain, unspecified type 1 Occurrences starting 04/26/2023 until 05/25/2024 [facility] Work Phone: Comment on above: 1 Occurrences starti ng 04/26/2023 until 05/25/2024 End: 06-02-2024 Ct angiography chest w/contrast/noncontrast CTA CHEST (NONGATED) WO/W IVCON Radiology Routine 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 Occurrences starting 05/04/2023 until 06/02/2024 [facility] Work Phone: Comment on above: 1 Occurrences starti ng 05/04/2023 until 06/02/2024 End: 05-04-2024 PVR ANK/HILL/TOE AWAIS VAS LAB PVR ANK/HILL/TOE AWAIS [facility]AS LAB Vascular Lab Routine 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) Other disorders of arteries, arterioles and capillaries in diseases classified elsewhere (HCC) 1 Occurrences starting 05/04/2023 until 05/04/2024 [facility] Work Phone: Comment on above: 1 Occurrences starti ng 05/04/2023 until 05/04/2024 End: 05-04-2024 US CAROTID ARTERIES [facility] US CAROTID ARTERIES [facility] Vascular Lab Routine Bilateral carotid artery stenosis 1 Occurrences starting 05/04/2023 until 05/04/2024 [facility] Work Phone: Comment on above: 1 Occurrences starti ng 05/04/2023 until 05/04/2024 [facility] Immunizations Immunization Date Immunization Notes Care Provider Kay bennett 01-20-2024 tetanus toxoid, redu gene diphtheria toxoid, and acellular pertussis vaccine, adsorbed Jus Magdalene [facility] 04-26-2023 influenza virus vaccine, unspecified formulation Timo Champagne DO Work Phone: [facility] 12-16-2021 SARS-CoV-2 mRNA (nyjkwllyequ-carx-yvkfb se) vaccine Jus Magdalene [facility] Comment on above: Result Comment: 2024: [id number] 04-07-2021 SARS-CoV-2 (COVID-19 ) mRNA BNT-162b2 vax Jus Magdalene [facility] Comment on above: Result Comment: 2024: [id number] 09-29-2020 SARS-CoV-2 (COVID-19 ) mRNA BNT-162b2 vax Jus Magdalene [facility] 09-08-2020 SARS-CoV-2 (COVID-19 ) mRNA BNT-162b2 vax Jus Magdalene [facility] 04-23-2020 influenza virus vaccine, unspecified formulation Jus Magdalene [facility] 07-04-2019 tetanus toxoid, redu gene diphtheria toxoid, and acellular pertussis vaccine, adsorbed Jus Magdalene [facility] 03-23-2017 pneumococcal conjuga te vaccine, 13 valent Jus Magdalene [facility] 03-06-2017 influenza virus vaccine, unspecified formulation Jus Del Castillo [facility] Payers Date Payer Category Payer [employer]) [id number] 2018 [employer] others) [id number] 2006 Medicare [id number] 1998 () [id number] 1959 [employer] ( and others) [id number] 1959 Medicare [id number] 1940 Unknown [id number] 2.840.1.747294.3.579. 2.593 1941 Unknown [id number] 2.16840.1.514786.3.579. 2.593 1941 Unknown [id number] 2.16.840.1.294381.3.579. 2.593 1941 Unknown [id number] 2.16.840.1.164359.3.579. 2.593 1941 Unknown [id number] 2.16.840.1.999977.3.579. 2.593 1941 Unknown [id number] 2.16.840.1.862807.3.579. 2.1259 1941 Unknown [id number] 2.16.840.1.363402.3.579. 2.1259 1941 Unknown [id number] 2.16.840.1.480508.3.579. 2.1259 1941 Unknown [id number] 2.16.840.1.227781.3.579. 2.1259 1941 Unknown [id number] 2.16.840.1.823338.3.579. 2.727 1941 Unknown [id number] 2.16.840.1.340268.3.579. 2.727 1941 Unknown [id number] 2.16.840.1.394198.3.579. 2.727 1941 Unknown [id number] 2.16.840.1.033488.3.579. 2.727 1941 Unknown [id number] 2.16.840.1.569440.3.579. 2.727 Unknown Social History Date Type Detail Facility Start: 09-06-2022 End: 09-28-2024 Tobacco smoking status Heavy tobacco smoker (finding) [facility] Start: 05-03-2023 Sex Assigned At Female F [facility] consumption unknown [facility] Start: 1940 Sex Assigned At Not on file [facility] Start: 05-23-1956 Tobacco smoking stat [facility] Smokes tobacco daily [facility] Start: 05-23-1956 History of tobacco use Cigarette Smo ker [facility] Start: 05-03-2023 Cigarettes smoked current (pack per day) - Reported 1.5 [facility] Start: 05-03-2023 Tobacco use and exposure Smoke less tobacco non-user [facility] Start: 05-03-2023 Alcohol intake Current drinke r of alcohol (finding) [facility] National Score (1-10 0), lower number is lower risk 87 [facility] Start: 05-03-2023 Alcohol [facility] Start: 08-17-2022 Sex Female (finding) [facility] Functional Status Date Assessment Result Facility 09-28-2024 Functional Status N/A [facility] 12-16-2023 Functional Status N/A [facility] 05-12-2023 Functional Status N/A [facility] 09-06-2022 Functional Status No [facility] Clinical Notes 03-22-2023 to 08-15-2024 Patrizia [...] nursing note reviewed. Exam conducted with a addiction medicine physician present. Vitals: Estimated body mass index is [...] 12:06 PM EDT documented in this encounter [facility] 07-17-2024 History of Present illness Narrative [...] nursing note reviewed. Exam conducted with a addiction medicine physician present. Vitals: Estimated body mass index is [...] Timo Champagne DO documented in this encounter 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 [facility] 01-09-2024 Note [facility] Note Reason for cardiology consult: Dyspnea on exertion, prior history of CAD Chief Complaint: Dyspnea on exertion HPI: Beth Starkey is a 83 y.o. 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 [facility] 05-26-2023 Note [facility] BETH STARKEY ([id number]) 1940 F Date Time Provider Department 05/26/23 [...] and brochure sent Lung Nodule Program Location: [facility] As of Date: 05/26/2023 (No Known [...] Encounter Status:Closed by EVANGELINA BURNETT on 05/26/23 [facility] 05-26-2023 Note HNO ID: [id number] Author: ?, ?, ? Service: ? Author [...] and brochure sent Lung Nodule Program [place] [facility] 05-18-2023 Note Patient Outreach ([facility]) BETH STARKEY ([id number]) 1940 F Date Time Provider Department 05/18/23 SOFIA BELLO [facility] During your visit today, we recorded the following information about you: Sofia Bello, [employer] 05/18/2023 11:12 AM Signed Incidental Lung Nodule Enrollment Outreach attempt: 1st Attempt Outreach status: Complete Enrolled in Lung Nodule program: Referred Lung Nodule outreach: No outreach - Very small nodule, letter and brochure sent Lung Nodule Program Location: [facility] As of Date: 05/18/2023 (No Known [...] Encounter Status:Closed by SOFIA BELLO on 05/18/23 [facility] 05-18-2023 Note HNO ID: [id number] Author: Sofia Bello, [employer] Service: ? Author Type: Nurse Practitioner Type: Progress Notes Filed: 05/18/2023 11:12 AM Note Text: Incidental Lung Nodule Enrollment Outreach attempt: 1st Attempt Outreach status: Complete Enrolled in Lung Nodule program: Referred Lung Nodule outreach: No outreach - Very small nodule, letter and brochure sent Lung Nodule Program Location: [facility] 05-03-2023 Note HNO ID: [id number] Author: Nadine Cummins RN Service: Radiology Author [...] DATE: May 03, 2023 TIME: 1:00 PM [facility] 05-03-2023 Note HNO ID: [id number] Author: Kandy Aragon RT(R) Service: Radiology Author [...] RT Tess(R) May 03, 2023 1:19 PM [facility] 05-03-2023 History and physical note Heart , Vascular and Thoracic [place] DEPARTMENT OF VASCULAR SURGERY OUTPATIENT VISIT DATE [...] Dr Judit [facility] and cell number: [phone] Diagnosis: AAA Kind Regards Med documented in this encounter [facility] 04-22-2023 Miscellaneous Notes Patient: Beth Starkey Date of : 1940 Patient phone number: [phone] Referring Provider for the encounter: Marck Tate [...] Scheduled TestsCTA Abd Aorto-bilat/ iliofemoral runoff 03/22/23 [facility] 03-22-2023 Evaluation + Plan note Future Scheduled TestsCTA Abd Aorto-bilat/ iliofemoral runoff 03/22/23 [facility] Evaluation + Plan note Future Appointments Appointment Date:10/11/2022 10:00:00 AM Scheduled Provider:Dayron Jorgensen MD Location:[facility] Appointment Type:Vascular Follow Up ([facility]) Future Scheduled TestsCTA Abdomen and Pelvis 09/06/22CTA Chest 09/06/22 [facility] Evaluation + Plan note Future Appointments Appointment Date:10/11/2022 10:00:00 AM Scheduled Provider:Dayron Jorgensen [facility] Follow Up ([facility]) [facility] Evaluation + Plan note Future Scheduled TestsCTA Abd Aorto-bilat/ iliofemoral runoff 03/22/23 [facility] Evaluation + Plan note Future Appointments Appointment Date:06/18/2024 09:45:00 AM Scheduled Provider:Tam Vallejo MD [facility] Type:Cardiology Follow Up ([facility]) Future Scheduled TestsCTA Abd Aorto-bilat/ iliofemoral runoff 03/22/23 [facility] Evaluation + Plan note Future Appointments Appointment Date:07/20/2024 10:00:00 AM Scheduled Provider:Tam Vallejo MD [facility] [place] [facility] Appointment Type:Cardiology Follow Up ([facility]) Future Scheduled TestsLipid Panel 12/19/23NM Myocardial Spect Rest/Stress 1 Day 12/21/23Echo Transthoracic Complete 12/21/23CTA Abd Aorto-bilat/ iliofemoral runoff 03/22/23 [facility] Evaluation + Plan note Future Appointments Appointment Date:12/07/2024 03:00:00 PM Scheduled Provider:Jus Del Castillo MD Location[facility] [place] [facility] Appointment Type:Cardiology Follow Up (FT) Future Scheduled TestsLipid Panel 07/24/24NM Myocardial Spect Rest/Stress 1 Day 12/21/23Echo Transthoracic Complete 12/21/23CTA Abd Aorto-bilat/ iliofemoral runoff 09/17/24 [facility] Evaluation note Diagnosis Chest pain, unspecified type- Primary [facility] Diagnosis 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 [facility] this [facility] Diagnosis 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 Bilateral carotid artery stenosis Occlusion and stenosis of carotid artery without mention of cerebral infarction Other disorders of arteries, arterioles and capillaries in diseases classified elsewhere ([facility]) documented in this encounter [facility]* Diagnosis Cyst of left ovary Other and unspecified ovarian cyst documented in this encounter [facility] HealthcareEvaluation note* Diagnosis Encounter to discuss test results Other specified counseling Cyst of left ovary Other and unspecified ovarian cyst documented in this encounter [facility] HealthcareHospital course Narrative No data available for this section [facility] No data available for this section [facility] No data available for this section [facility] (narrative)* Outpatient Procedure (Routine) - Authorized Specialty Diagnoses / Procedures Referred By Manjula t Referred To Contact [facility] Diagnoses 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) Other disorders of arteries, arterioles and capillaries in diseases classified elsewhere ([facility]) Procedures PVR ANK/HILL/TOE AWAIS VAS LAB NON-INVAS PHYSIOLOGIC STD EXTREMITY ART 2 LEVEL Jena Hicks MD [address] [place] [address] [facility] [place] [address] [place] [address] Referral ID Status Reason Start Date Expiration Date Visits Requested Visits Authorized [id number] Authorized Auto-Generat ed Referral 3 05/03/2024 1 1 * MRI/CT (Routine) - Authorized Specialty Diagnoses / Procedures Referred By Marcac t Referred To Contact CT IMAGING Diagnoses 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) Procedures CTA ABD/PEL WO/W IVCON CT ANGIO ABD&PLVIS CNTRST MTRL W/WO CNTRST Jena Todd MD [address] [place] [address] [facility] [place] [address] Referral ID Status Reason Start Date Expiration Date Visits Requested Visits Authorized [id number] Authorized Auto-Generat ed Referral 3 06/02/2024 1 1 * MRI/CT (Routine) - Authorized Specialty Diagnoses / Procedures Referred By Manjula t Referred To Contact CT IMAGING Diagnoses 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) Procedures CTA CHEST (NONGATED) WO/W IVCON CT ANGIOGRAPHY CHEST W/CONTRAST/NONCONTRAST Jena Hicks MD [address] [place] [address] [facility] [place] [address] Referral ID Status Reason Start Date Expiration Date Visits Requested Visits Authorized [id number] Authorized Auto-Generat ed Referral 3 06/02/2024 1 1 * Outpatient Procedure (Routine) - Authorized Specialty Diagnoses / Procedures [facility] Diagnoses Bilateral carotid artery stenosis Procedures US CAROTID ARTERIES AWAIS VAS LAB DUPLEX SCAN EXTRACRANIAL [place] [address] [place] [address] [facility] [place] [address] [place] [address] Referral ID Status Reason Start Date Expiration Date Visits Requested Visits Authorized [id number] Authorized Auto-Generat ed Referral 12/1305/03/2024 1 1 [facility] Summary Purpose Family History No [...] ANGIO ABD&PLVIS CNTRST MTRL W/[facility] J[facility] Hicks MD [address] [place] [address] [facility] [place] [address] Referral ID Status Reason Start Date Expiration Date Visits Requested Visits Authorized [id number] Authorized Auto-Generat ed Referral 04/26/2023 05/25/2024 1 1 Specialty Diagnoses / Procedures Referred By Contac t Referred To Contact CT IMAGING Diagnoses Chest pain, unspecified type Procedures CTA CHEST (NONGATED) WO/W IVCON CT ANGIOGRAPHY CHEST W/CONTRAST/NONCONTRAST Jena Hicks MD [address] [place] [address] [facility] [place] [address] Referral ID Status Reason Start Date Expiration Date Visits Requested Visits Authorized [id number] Authorized Auto-Generat ed Referral 04/26/2023 05/25/2024 1 1 Additional Source Comments INFORMATION SOURCE (unrecogn ized section and content) DATE CREATED AUTHOR 11/14/2017 [facility] DATE CREATED AUTHOR AUTHOR'S ORGANIZ ATION 08/09/2022 [facility] DATE CREATED AUTHOR AUTHOR'S ORGANIZ ATION 05/27/2023 [facility] DATE CREATED AUTHOR AUTHOR'S ORGANIZ ATION 01/22/2024 [facility] DATE CREATED AUTHOR AUTHOR'S ORGANIZ ATION 08/16/2024 [facility] EPIC DATE CREATED AUTHOR AUTHOR'S ORGANIZ ATION 12/11/2024 [facility] Patient Care team informatio n (unrecognized section and content) Home Theatre Technician Relationship Specialty Start Date End Date Marck Tate MD [address] [facility], [place] [address] Family Medicine 04/22/23 Home Theatre Technician Relationship Specialty Start Date End Date Marck Tate MD [address] [facility], [place] [address] Family Medicine 04/22/23 Home Theatre Technician Relationship Specialty Start Date End Date Marck Tate MD [address] [facility], [place] [address] Family Medicine 04/22/23 Home Theatre Technician Relationship Specialty Start Date End Date Marck Tate MD [address] [facility], [place] [address] Family Medicine 04/22/23 Home Theatre Technician Relationship Specialty Start Date End Date Marck Tate MD [address] [place] [facility] [address] PCP - General Family Medicine 05/30/23 Home Theatre Technician Relationship Specialty Start Date End Date Marck Tate MD [address] [place] [facility] [address] PCP - General Family Medicine 05/30/23 Home Theatre Technician Relationship Specialty Start Date End Date Marck Tate MD [address] [place] [address] PCP - General Family Medicine 05/30/23 Home Theatre Technician Relationship Specialty Start Date End Date Marck Tate MD [address] [place] [address] PCP - General Family Medicine 05/30/23 Source [...] BE BASED ON THE PRIMARY CLINICAL RECORDS. [facility] [employer] [facility]. provides no warranty or guarantee of the accuracy or completeness of information in this document.
[2025-02-07 18:09] LABS: C. Difficile PCR NEGATIVE
== END 2025-02-06 15:34 | disposition home or self-care (01) ==
LOC: LAB 15:33
PROVIDERS: PCP Family Medicine; Visit Provider Family Medicine
DX: K52.9 Noninfective gastroenteritis and colitis, unspecified (principal)
CPT/HCPCS: 87045; 87046; 87427; 87493

== ENCOUNTER 2025-02-07 15:32 | Outpatient (REF) | payer MEDICARE, OTHER, SELFPAY ==
--- OUTSIDE RECORDS SUMMARY | 2025-02-06 17:12 | XMS_ITS | CCD ---
Author Organization [facility] Care Team Providers Care Trim Setter Name Role Phone PHYSICIAN, DEFAULT Unavailable Unavailable PHYSICIAN, DEFAULT Unavailable Unavailable MARCK TATE Unavailable Unavailable HOY ., DR ACHARYA Admitting Unavailable HOY ., DR ACHARYA Attending Unavailable HOY ., DR ACHARYA Primary Care Unavailable HOY ., DR ACHARYA Consulting Unavailable [place], DR SANDOVAL Ferguson Consulting Unavailable HOY ., [...] Unavailable Marck Tate MD Primary Care Provider [phone] TIMO CHAMPAGNE Attending Unavailable TIMO CHAMPAGNE [...] Medication Allergies] Propensity to adverse reactions (disorder) [facility] Repository Medications Current Medications Medication Drug Class(es) Dates Sig (Normalized) Sig (Original) amLODIPine 2.5 mg oral tablet (12 sources) Dihydropyridine Calcium Channel Yessica Start: 07-20-2024 take 1 tablet by mouth once daily Norvasc 2.5 mg Tab 2.5 mg = 1 tab(s), Oral, Daily, # 90 tab(s), Refills(s) 0, Pharmacy: [id number], 152, cm, 07/20/24 10:08:00 EST, Height/Length Dosing, 72, kg, 07/20/24 10:08:00 EST, Weight Dosing Start Date: 07/20/24 Status: Ordered Quantity: 90.0 Unit: tab(s) Repeat number: 1 Start: 01-20-2023 take 1 tablet by ctay th once daily amLODIPine 5 mg Tab [...] Daily, # 30 tab(s), Refills(s) 6, [id number], 152, cm, 12/16/23 15:27:00 EDT, Height/Length Dosing, 69.1, kg, 12/16/23 15:27:00 EDT, Weight Dosing Start Date: 12/19/23 Status: Ordered Quantity: 30.0 Unit: tab(s) Repeat number: 7 calcium carbonate (Tums) 250 mg ([place] 100 mg) chewable split tablet (6 sources) calcium carbonat e (Tums) 250 mg ([place] 100 mg) chewable split tablet Take 500 [...] Daily, # 90 tab(s), Refills(s) 0, [id number], 152, cm, 07/20/24 10:08:00 EST, Height/Length Dosing, [...] Daily, # 30 tab(s), Refills(s) 6, [facility]: [id number], 152, cm, 12/16/23 15:27:00 EDT, Height/Length Dosing, 69.1, kg, 12/16/23 15:27:00 EDT, Weight Dosing Start Date: 12/19/23 Status: Ordered Quantity: 30.0 Unit: tab(s) Repeat number: 7 Start: 12-16-2023 take 1 tablet by caty th once daily metoprolol succinate 25 mg ER Tab 25 mg = 1 tab(s), Oral, Daily, # 30 tab(s), Refills(s) 6, Pharmacy: [facility] #[id number], 152, cm, 12/16/23 15:27:00 EDT, Height/Length Dosing, [...] disease (7 sources) Atherosclerotic heart disease of [place] coronary artery without angina pectoris; Translations: [Coronary [...] as patient had to be rescheduled from [place]. At last visit, patient saw Dr. Vallejo [...] -see outside records Assessment/Plan 1. CAD in [place] artery (I25.10: Atherosclerotic heart disease of [place] coronary artery without angina pectoris) The patient has history of CAD with prior PCI. She also had a recent stress test that was positive and considered high risk due to large reversible defect. However, patient refused heart cath when proposed by Dr. Vallejo last month last month. Again asked (more content not included)... Normal [facility] Comment on above: Result Comment: [...] as patient had to be rescheduled from [place]. At last visit, patient saw Dr. Vallejo [...] -see outside records Assessment/Plan 1. CAD in [place] artery (I25.10: Atherosclerotic heart disease of [place] coronary artery without angina pectoris) The patient [...] with voice recognition artificial intelligence software, specifically [employer], [employer] and or [employer]. Substitutions may have occurred due to the inherent limitations of voice recognition and artificial intelligence software. Follow-up No qualifying data available Problem List/Past Medical History Ongoing AAA (abdominal aortic aneurysm) CAD in [place] artery HTN (hypertension) Historical No qualifying data [...] mg= 1 (more content not included)... Normal [facility] Comment on above: Result Comment: [...] II, MD, PHD at 09-Aug-2024 08:45:09 AM [facility] Normal Not Available Comment on above: [...] as indicated. [1] Assessment/Plan 1. CAD in [place] artery (I25.10: Atherosclerotic heart disease of [place] coronary artery without angina pectoris) Exertional dyspnea [...] A PONCE (more content not included)... Normal [facility] Comment on above: Result Comment: Elec tronically Signed By: Genevieve CURRIE, Tam Spain\.br\Date and Time Signed: 07/20/24 10:27 EST Office Visiton 01-20-2024 Follow-up visit [id number] Beth Starkey 1940 F Date Provider Department Center 01/20/2024 [id number] HOPE MONSE Delgado [facility] Family History Problem Relation Age of Onset Heart attack Father Diabetes Sister Coronary artery disease Brother Aneurysm Brother Diabetes Brother Family Status - Relation Status Age at Father Sister Brother Level of Service:57355 [place] OFFICE/OUTPATIENT ESTABLISHED MOD MDM 30 MIN Reason for Visit and Comments: Hyperlipidemia [182] Hypertension [485562] - Pt had a abnormal stress. Patient used the restroom in the ED right before apt and had a fall. She denies lightheadedness/dizz iness and syncope. She denies hiting her head. Shortness of Breath [395773] Normal [facility] Office Visiton 01-09-2024 Follow-up visit [id number] Beth Starkey 1940 F Date Provider Department Center 01/09/2024 [id number], SAMDANNIELLE MONSE [facility] Family History Problem Relation Age of Onset Heart attack Father Diabetes Sister Coronary artery disease Brother Aneurysm Brother Diabetes Brother Family Status - Relation Status Age at Father Sister Brother Level of Service:63208 ND OFFICE/OUTPATIENT NEW MODERATE MDM 45 MINUTES Reason for Visit and Comments: New Patient [632] - Pt complains of sob. Normal [facility] Office/Cl inic Noteon 12-16-2023 [...] aneurysm, without rupture, unspecified) 2. CAD in [place] artery (I25.10: Atherosclerotic heart disease of [place] coronary artery without angina pectoris) 3. HTN [...] CURRIE, Edinson Kuhn 09/24/2022 10:55 EDT Normal [facility] Comment on above: Result Comment: Elec tronically Signed By: Genevieve CURRIE, Tam Spain\.ede\Date and Time Signed: 12/16/23 15:48 EDT REILLYon 05-03-2023 CNDANIEL Office Visit (YURI) BETH STARKEY ([id number]) 1940 F Date Time Provider Department 05/03/23 12:00 PM JENA HICKS During your visit today, we recorded the following information about you: Temperature Pulse Respiration Blood pressure 98.3 degrees 86/minute 16/minute 103/59 Weight Height 65.8 kg 1.524 m Jena Hicks MD 05/03/2023 3:31 PM Signed [facility] [place] DEPARTMENT OF VASCULAR SURGERY OUTPATIENT VISIT DATE [...] PHYSICAL E (more content not included)... Normal [facility] CTA ABD/PELV WO/W IVCONon CTA ABD/PELV WO/W IVCON * * *Final Report* * * DATE OF EXAM: May 03 2023 1:27PM [facility] [place] - CTA ABD/PELV WO/W IVCON / [...] stable BONES: degenerative changes of the spine Pan Devulcanizer (topogram) images: No additional findings. IMPRESSION: * [...] (more content not included)... Invalid Interpretation Code [facility] CTA CHEST (NONGATED) WO/W IV CONon 05-03-2023 CTA CHEST (NONGATED) WO/W IVCON * * *Final Report* * * DATE OF EXAM: May 03 2023 1:27PM [facility] [place] [facility]124 - CTA CHEST (NONGATED) WO/W IVCON [...] stable BONES: degenerative changes of the spine Pan Devulcanizer (topogram) images: No additional findings. IMPRESSION: * [...] (more content not included)... Invalid Interpretation Code [facility] HISTORY PHYSICALon HISTORY PHYSICAL HNO ID: [id number] Author: Jena Hicks MD Service: ? Author Type: Physician Type: HANDP Filed: 05/03/2023 3:31 PM Note Text: [facility] [place] DEPARTMENT OF VASCULAR SURGERY OUTPATIENT VISIT DATE [...] EOM, pupils (more content not included)... Normal [facility] 04-25-2023 [facility] Telephone (PODCCP) BETH STARKEY ([id number]) 1940 F Date Time Provider Department 04/25/23 NO PCP PODCCP During your visit today, we recorded the following information about you: Med Quiros 04/25/2023 4:23 PM Signed Reason for call: Ms Starkey called,and she would like to schedule an appointment with vascular surgery Referred by Dr Judit Tate [facility] and cell number: [phone] Diagnosis: AAA Kind Regards Med Allergies As of Date: 04/25/2023 (Not on File) Date Reviewed: Never Reviewed Reason for Visit: Appointment [186] Problem List As Of Date: 04/25/2023 (None) Encounter Status:Closed by MED QUIROS on 04/25/23 [facility] ST[facility] ([id number]) 1940 F Date Time Provider Department 04/22/23 NO ONE (HISTORICAL) REFPHY During your visit today, we recorded the following information about you: Patrizia Orozco 04/22/2023 10:06 AM Signed Patient: Beth Starkey Date of : 1940 Patient phone number: [phone] Referring Provider for the encounter: Marck Tate [...] Status:Closed by PATRIZIA OROZCO on 04/22/23 Normal [facility] CHEMISTRYOrdered By: SYSTEM SYSTEM on 09-24-2022 Creatinine [Mass/Vol] 0.8 mg/dL Normal 0.5 - 1.3 mg/dL [facility] Remisol GFR/1.73 sq M.predicted among non-blacks MDRD (S/P/Bld) [Vol rate/Area] 74 mL/min/1.73 m2 Normal >=59mL/min/1. 73 m2 [facility] Chem S CT [...] KAYY KAUR Date: 2022-08-02 10:52 Normal [facility] C. DIFF PCRon 07-28-2022 C. DIFFICILE PCR Negative Normal NEGATIVE [facility] Comment on above: Performed By: #### C DIFPOC #### [facility] [address] [place] [address] Dr. Spencer Braun OCC BLD IMMUNO SCREENon OCCULT BLOOD Negative Normal NEGATIVE [facility] Comment on above: Performed By: #### C BC #### [facility] [address] [place] [address] Dr. Spencer Braun INSULINon 07-15-2022 Insulin 17.7 uIU/mL Normal 2.6-24.9 [facility] Comment on above: Performed By: #### I NSULIN ####[facility] [address] [address]Dr. Spencer Braun BNPon 07-14-2022 Natriuretic peptide B (Bld) [Mass/Vol] 197.0 pg/mL Normal <=1,800.0 [facility] Comment on above: Performed By: #### B CUSTOMER SUPPORT AGENT, LIPID, CMP, T7, TSH #### [facility] [address] [address] [address] Spencer Braun CBC AUTO DIFFon 07-14-2022 BASO # 0.1 103/ul Normal 0.0-0.1 [facility] Comment on above: Performed By: #### C BC #### [facility] [address] [place] [address] Dr. Spencer Braun Basophils/100 WBC (Bld) 0.9 % Normal 0.2-2.0 [facility] Comment on above: Performed By: #### C BC #### [facility] [address] [place] [address] Dr. Spencer Braun EO # 0.2 103/ul Normal 0.0-0.[address] [facility] Comment on above: Performed By: #### C BC #### [facility] [address] [place] [address] Dr. Spencer Braun Eosinophils/100 WBC (Bld) 2.5 % Normal 0.9-7.[address] [facility] Comment on above: Performed By: #### C BC #### [facility] [address] [place] [address] Dr. Spencer Braun Erythrocyte distribution width (RBC) [Ratio] 13.8 % Normal 11.0-15.[address] [facility] Comment on above: Performed By: #### C BC #### [facility] [address] [place] [address] Dr. Spencer Braun Hematocrit (Bld) [Volume fraction] 45.1 % Normal 36.0-48.[address] [facility] Comment on above: Performed By: #### C BC #### [facility] [address] [place] [address] Dr. pSencer Braun Hemoglobin (Bld) [Mass/Vol] 14.7 g/dL Normal 12.0-16.[address] [facility] Comment on above: Performed By: #### C BC #### [facility] [address] [place] [address] Dr. Spencer Braun IG # 0.04 10e3/ul Critically high 0.00-0.03 [facility] Comment on above: Performed By: #### C BC #### [facility] [address] [place] [address] Dr. Spencer Braun IG % 0.5 % Normal 0.0-0.[address] [facility] Comment on above: Performed By: #### C BC #### [facility] [address] [place] [address] Dr. Spencer Braun LYMPH # 1.6 103/ul Normal 1.2-3.8 [facility] Comment on above: Performed By: #### C BC #### [facility] [address] [place] [address] Dr. Spencer Braun Lymphocytes/100 WBC (Bld) 20.4 % Critically low 20.5-60.[address] [facility] Comment on above: Performed By: #### C BC #### [facility] [address] [place] [address] Dr. Spencer Braun MANUAL DIFF REQ NO Normal [facility] Comment on above: Performed By: #### C BC #### [facility] [address] [place] [address] Dr. Spencer Braun MCH (RBC) [Entitic mass] 28.8 pg Normal 26.7-34.0 [facility] Comment on above: Performed By: #### C BC #### [facility] [address] [place] [address] Dr. Spencer Braun MCHC (RBC) [Mass/Vol] 32.6 g/dL Normal 29.9-35.2 [facility] Comment on above: Performed By: #### C BC #### [facility] [address] [place] [address] Dr. Spencer Braun MCV (RBC) [Entitic vol] 88.3 fL Normal 81.0-99.0 [facility] Comment on above: Performed By: #### C BC #### [facility] [address] [place] [address] Dr. Spencer Braun MONO # 0.5 103/ul Normal 0.3-0.8 [facility] Comment on above: Performed By: #### C BC #### [facility] [address] [place] [address] Dr. Spencer Braun Monocytes/100 WBC (Bld) 6.5 % Normal 1.7-12.0 [facility] Comment on above: Performed By: #### C BC #### [facility] [address] [place] [address] Dr. Spencer Braun NEUT # 5.4 103/ul Normal 1.4-6.5 [facility] Comment on above: Performed By: #### C BC #### [facility] [address] [address] [address] Spencer Braun Neutrophils/100 WBC (Bld) 69.2 % Normal 43.0-75.0 [facility] Comment on above: Performed By: #### C BC #### [facility] [address] [address] [address] Spencer Braun Platelet mean volume (Bld) [Entitic vol] 9.1 fL Critically low 9.5-13.5 [facility] Comment on above: Performed By: #### C BC #### [facility] [address] [address] [address] Spencer Braun PLT 190 103/ul Normal 150-450 [facility] Comment on above: Performed By: #### C BC #### [facility] [address] [place] [address] Dr. Spencer Braun RBC 5.11 106/ul Normal 4.20-5.40 [facility] Comment on above: Performed By: #### C BC #### [facility] [address] [address] [address] Spencer Braun WBC 7.7 103/ul Normal 4.0-11.0 [facility] Comment on above: Performed By: #### C BC #### [facility] [address] [address] [address] Spencer Braun FREE THYROXINE INDEX T7on FTI 2.87 Normal 1.30-4.50 [facility] Comment on above: Performed By: #### B CUSTOMER SUPPORT AGENT, LIPID, CMP, T7, TSH ####[facility] [address] [place] [address]Dr[address] Spencer Braun T3U 33.0 % Normal 30.0-39.0 [facility] Comment on above: Performed By: #### B CUSTOMER SUPPORT AGENT, LIPID, CMP, T7, TSH ####[facility] [address] [place] [address]Dr. Spencer Braun T4 [Mass/Vol] 8.70 ug/dL Normal 4.80-13.90 [facility] Comment on above: Performed By: #### B CUSTOMER SUPPORT AGENT, LIPID, CMP, T7, TSH ####[facility] [address] [place], [place] [address]RdManish Braun GLYCOHEMOGLOBIN A1Con 2022 ADA RECOMMENDATION SEE BELOW Normal [facility] Comment on above: Result Comment: ADA RECOMMENDED LIMIT 4.0 - 6.0 ADA THERAPEUTIC TARGET < 7.0 ACTION SUGGESTED > 7.0 Performed By: #### A 1C ####[facility] [address] [place] [address]DrManish Braun Glucose [Mass/Vol] 123 mg/dL Normal [facility] Comment on above: Performed By: #### A 1C ####[facility] [address] [place] [address]DrManish Braun HbA1c (Bld) [Mass fraction] 5.9 % Normal 4.5-6.[address] [facility] Comment on above: Performed By: #### A 1C ####[facility] [address] [place] [address]DrManish Braun IRONon 07-14-2022 Iron [Mass/Vol] 70.0 ug/dL Normal 50.0-170.0 [facility] Comment on above: Performed By: #### V ITAD, IRON #### [facility] [address] [place], [place] [address] Dr. Spencer Braun LIPID PROFILEon 07-14-2022 CHOL-HDL RATIO NORM SEE BELOW Normal [facility] Comment on above: Result Comment: 3.3 - 4.4 LOW RISK 4.4 - 7.1 AVERAGE RISK 7.1 - 11.0 MODERATE RISK >11.0 HIGH RISK Performed By: #### B CUSTOMER SUPPORT AGENT, LIPID, CMP, T7, TSH ####[facility] [address] [place], [place] [address]TkManish Braun Cholesterol [Mass/Vol] 180 mg/dL Normal <=200 [facility] Comment on above: Performed By: #### B CUSTOMER SUPPORT AGENT, LIPID, CMP, T7, TSH ####[facility] [address] [place] [address]DrManish Braun Cholesterol in HDL [Mass/Vol] 50 mg/dL Normal 40-60 [facility] Comment on above: Performed By: #### B CUSTOMER SUPPORT AGENT, LIPID, CMP, T7, TSH ####[facility] [address] [place] [address]Dr. Spencer Braun Cholesterol in LDL [Mass/Vol] 105.8 mg/dL Normal [facility] Comment on above: Performed By: #### B CUSTOMER SUPPORT AGENT, LIPID, CMP, T7, TSH ####[facility] [address] [place] [address]Dr. Spencer Braun Cholesterol.total/Ch olesterol in HDL [Mass ratio] 3.6 {ratio} Normal [facility] Comment on above: Performed By: #### B CUSTOMER SUPPORT AGENT, LIPID, CMP, T7, TSH ####[facility] [address] [address]Dr. Spencer Braun HDL NORMAL > or = 60 mg/dl - LOW CARDIOVASCULAR RISK <40 mg/dl - HIGH CARDIOVASCULAR RISK Normal [facility] Comment on above: Performed By: #### B CUSTOMER SUPPORT AGENT, LIPID, CMP, T7, TSH ####[facility] [address] [place] [address]Dr. Spencer Braun LDL CALC NORMAL SEE BELOW Normal [facility] Comment on above: Result Comment: <100 mg/dl OPTIMAL 100 - 129 mg/dl NEAR OR ABOVE OPTIMAL 130 - 159 mg/dl BORDERLINE HIGH 160 - 189 mg/dl HIGH >190 mg/dl VERY HIGH Performed By: #### B CUSTOMER SUPPORT AGENT, LIPID, CMP, T7, TSH ####[facility] [address] [place] [address]Dr. Spencer Braun Triglyceride [Mass/Vol] 121 mg/dL Normal <=150 [facility] Comment on above: Performed By: #### B CUSTOMER SUPPORT AGENT, LIPID, CMP, T7, TSH ####[facility] [address] [place] [address]Dr. Spencer Braun VLDL CALC 24.2 mg/dL Normal [facility] Comment on above: Performed By: #### B CUSTOMER SUPPORT AGENT, LIPID, CMP, T7, TSH ####[facility] [address] [address]Dr. Spencer Braun PROF 14(COMP METB)on 023 Albumin [Mass/Vol] 3.8 g/dL Normal 3.4-5.0 [facility] Comment on above: Performed By: #### B CUSTOMER SUPPORT AGENT, LIPID, CMP, T7, TSH #### [facility] [address] [address] [address] Spencer Braun Albumin/Globulin [Mass ratio] 1.0 {ratio} Normal [facility] Comment on above: Performed By: #### B CUSTOMER SUPPORT AGENT, LIPID, CMP, T7, TSH #### [facility] [address] [place] [address] Dr. Spencer Braun ALP [Catalytic activity/Vol] 135 U/L Critically high 46-[address] [facility] Comment on above: Performed By: #### B CUSTOMER SUPPORT AGENT, LIPID, CMP, T7, TSH #### [facility] [address] [place] [address] Dr. Spencer Braun ALT [Catalytic activity/Vol] 20 U/L Normal 14-[address] [facility] Comment on above: Performed By: #### B CUSTOMER SUPPORT AGENT, LIPID, CMP, T7, TSH #### [facility] [address] [address] [address] Spencer Braun Anion gap [Moles/Vol] 8.4 mmol/L Normal [facility] Comment on above: Performed By: #### B CUSTOMER SUPPORT AGENT, LIPID, CMP, T7, TSH #### [facility] [address] [place] [address] Dr. Spencer Braun AST [Catalytic activity/Vol] 14 U/L Critically low 15-[address] [facility] Comment on above: Performed By: #### B CUSTOMER SUPPORT AGENT, LIPID, CMP, T7, TSH #### [facility] [address] [address] [address] Spencer Braun Bilirubin [Mass/Vol] 0.4 mg/dL Normal 0.2-1.[address] [facility] Comment on above: Performed By: #### B CUSTOMER SUPPORT AGENT, LIPID, CMP, T7, TSH #### [facility] [address] [place] [address] Dr. Spencer Braun Calcium [Mass/Vol] 9.5 mg/dL Normal 8.5-10.1 [facility] Comment on above: Performed By: #### B CUSTOMER SUPPORT AGENT, LIPID, CMP, T7, TSH #### [facility] [address] [place] [address] Dr. Spencer Braun Chloride [Moles/Vol] 104 mmol/L Normal 98-[address] [facility] Comment on above: Performed By: #### B CUSTOMER SUPPORT AGENT, LIPID, CMP, T7, TSH #### [facility] [address] [place] [address] Dr. Spencer Braun CO2 [Moles/Vol] 32.0 mmol/L Normal 21.0-32.0 [facility] Comment on above: Performed By: #### B CUSTOMER SUPPORT AGENT, LIPID, CMP, T7, TSH #### [facility] [address] [place] [address] Dr. Spencer Braun Creatinine [Mass/Vol] 0.72 mg/dL Normal 0.55-1.[address] [facility] Comment on above: Performed By: #### B CUSTOMER SUPPORT AGENT, LIPID, CMP, T7, TSH #### [facility] [address] [place] [address] Dr. Spencer Braun EGFR-AF [place] >60 Normal >=60 [facility] Comment on above: Performed By: #### B CUSTOMER SUPPORT AGENT, LIPID, CMP, T7, TSH #### [facility] [address] [place] [address] Dr. Spencer Braun EGFR-NON AF [place]ESE >60 Normal >=[address] [facility] Comment on above: Performed By: #### B CUSTOMER SUPPORT AGENT, LIPID, CMP, T7, TSH #### [facility] [address] [place] [address] Dr. Spencer Braun Globulin (S) [Mass/Vol] 3.9 g/dL Normal [facility] [facility] Comment on above: Performed By: #### B CUSTOMER SUPPORT AGENT, LIPID, CMP, T7, TSH #### [facility] [address] [place] [address] Dr. Spencer Braun Glucose [Mass/Vol] 127 mg/dL Critically high 74-106 [facility] Comment on above: Performed By: #### B CUSTOMER SUPPORT AGENT, LIPID, CMP, T7, TSH #### [facility] [address] [place] [address] Dr. Spencer Braun Potassium [Moles/Vol] 4.4 mmol/L Normal 3.5-5.1 [facility] Comment on above: Performed By: #### B CUSTOMER SUPPORT AGENT, LIPID, CMP, T7, TSH #### [facility] [address] [place] [address] Dr. Spencer Braun Protein [Mass/Vol] 7.7 g/dL Normal 6.4-8.2 [facility] Comment on above: Performed By: #### B CUSTOMER SUPPORT AGENT, LIPID, CMP, T7, TSH #### [facility] [address] [place] [address] Dr. Spencer Braun Sodium [Moles/Vol] 140 mmol/L Normal 136-145 [facility] Comment on above: Performed By: #### B CUSTOMER SUPPORT AGENT, LIPID, CMP, T7, TSH #### [facility] [address] [place] [address] Dr. Spencer Braun Urea nitrogen [Mass/Vol] 18.0 mg/dL Normal 7.0-18.[address] [facility] Comment on above: Performed By: #### B CUSTOMER SUPPORT AGENT, LIPID, CMP, T7, TSH #### [facility] [address] [place] [address] Dr. Spencer Braun Urea nitrogen/Creatinine [Mass ratio] 25.0 mg/mg Normal [facility] Comment on above: Performed By: #### B CUSTOMER SUPPORT AGENT, LIPID, CMP, T7, TSH #### [facility] [address] [place] [address] Dr. Spencer Braun TSHon 07-14-2022 TSH 1.760 uIU/mL Normal 0.358-3.740 [facility] Comment on above: Performed By: #### B CUSTOMER SUPPORT AGENT, LIPID, CMP, T7, TSH #### [facility] [address] [place] [address] Dr. Spencer Braun VITAMIN D 25 OHon 07-14-2022 VIT D 25-OH 85.7 ng/mL Normal [facility] Comment on above: Performed By: #### V ITAD, IRON #### [facility] [address] [place] [address] Dr. Spencer Braun VIT D RANGES SEE BELOW Normal [facility] Comment on above: Result Comment: <20 ng/mL Vit D deficient 20 - <30 ng/mL Vit D insufficient 30 - 100 ng/mL Vit D sufficient >100 ng/mL Potential Toxicity Performed By: #### V ITAD, IRON #### [facility] [address] [place] [address] Dr. Spencer Braun CBC AUTO DIFFon 04-30-2022 BASO # 0.1 103/ul Normal 0.0-0.[address] [facility] Comment on above: Performed By: #### C BC #### [facility] [address] [place] [address] Dr. Spencer Braun Basophils/100 WBC (Bld) 0.9 % Normal 0.2-2.[address] [facility] Comment on above: Performed By: #### C BC #### [facility] [address] [place] [address] Dr. Spencer Braun EO # 0.2 103/ul Normal 0.0-0.[address] [facility] Comment on above: Performed By: #### C BC #### [facility] [address] [place] [address] Dr. Spencer Braun Eosinophils/100 WBC (Bld) 2.1 % Normal 0.9-7.[address] [facility] Comment on above: Performed By: #### C BC #### [facility] [address] [place] [address] Dr. Spencer Braun Erythrocyte distribution width (RBC) [Ratio] 13.9 % Normal 11.0-15.[address] [facility] Comment on above: Performed By: #### C BC #### [facility] [address] [place] [address] Dr. Spencer Braun Hematocrit (Bld) [Volume fraction] 46.2 % Normal 36.0-48.[address] [facility] Comment on above: Performed By: #### C BC #### [facility] [address] [place] [address] Dr. Spencer Braun Hemoglobin (Bld) [Mass/Vol] 15.1 g/dL Normal 12.0-16.[address] [facility] Comment on above: Performed By: #### C BC #### [facility] [address] [place] [address] Dr. Spencer Braun IG # 0.05 10e3/ul Critically high 0.00-0.03 [facility] Comment on above: Performed By: #### C BC #### [facility] [address] [place] [address] Dr. Spencer Braun IG % 0.6 % Critically high 0.0-0.5 [facility] Comment on above: Performed By: #### C BC #### [facility] [address] [place] [address] Dr. Spencer Braun LYMPH # 1.7 103/ul Normal 1.2-3.[address] [facility] Comment on above: Performed By: #### C BC #### [facility] [address] [place] [address] Dr. Spencer Braun Lymphocytes/100 WBC (Bld) 20.3 % Critically low 20.5-60.[address] [facility] Comment on above: Performed By: #### C BC #### [facility] [address] [place] [address] Dr. Spencer Braun MANUAL DIFF REQ NO Normal [facility] Comment on above: Performed By: #### C BC #### [facility] [address] [place] [address] Dr. Spencer Braun MCH (RBC) [Entitic mass] 28.8 pg Normal 26.7-34.[address] [facility] Comment on above: Performed By: #### C BC #### [facility] [address] [place] [address] Dr. Spencer Braun MCHC (RBC) [Mass/Vol] 32.7 g/dL Normal 29.9-35.[address] [facility] Comment on above: Performed By: #### C BC #### [facility] [address] [place] [address] Dr. Spencer Braun MCV (RBC) [Entitic vol] 88.2 fL Normal 81.0-99.0 [facility] Comment on above: Performed By: #### C BC #### [facility] [address] [address] [address] Spencer Braun MONO # 0.6 103/ul Normal 0.3-0.8 [facility] Comment on above: Performed By: #### C BC #### [facility] [address] [address] [address] Spencer Braun Monocytes/100 WBC (Bld) 7.1 % Normal 1.7-12.[address] [facility] Comment on above: Performed By: #### C BC #### [facility] [address] [place] [address] Dr. Spencer Braun NEUT # 5.7 103/ul Normal 1.4-6.[address] [facility] Comment on above: Performed By: #### C BC #### [facility] [address] [place] [address] Dr. Spencer Braun Neutrophils/100 WBC (Bld) 69.0 % Normal 43.0-75.[address] [facility] Comment on above: Performed By: #### C BC #### [facility] [address] [place] [address] Dr. Spencer Braun Platelet mean volume (Bld) [Entitic vol] 9.2 fL Critically low 9.5-13.[address] [facility] Comment on above: Performed By: #### C BC #### [facility] [address] [place] [address] Dr. Spencer Braun PLT 180 103/ul Normal 150-450 [facility] Comment on above: Performed By: #### C BC #### [facility] [address] [place] [address] Dr. Spencer Braun RBC 5.24 106/ul Normal 4.20-5.40 [facility] Comment on above: Performed By: #### C BC #### [facility] [address] [place] [address] Dr. Spencer Braun WBC 8.2 103/ul Normal 4.0-11.0 [facility] Comment on above: Performed By: #### C BC #### [facility] [address] [place], [place] [address] Dr. Spencer Braun FREE T3on 04-30-2022 FREE T3 2.98 pg/mlL Normal 2.18-3.[address] [facility] Comment on above: Performed By: #### L IPID, TSH, T4, FT3, CMP ####[facility] [address] [id number] Braun GLYCOHEMOGLOBIN A1Con 2021 ADA RECOMMENDATION SEE BELOW Normal [facility] Comment on above: Result Comment: ADA RECOMMENDED LIMIT 4.0 - 6.0 ADA THERAPEUTIC TARGET < 7.0 ACTION SUGGESTED > 7.0 Performed By: #### A 1C ####[facility] [address] [address]DrManish Braun Glucose [Mass/Vol] 134 mg/dL Normal [facility] Comment on above: Performed By: #### A 1C ####[facility] [address] [address]DrManish Braun HbA1c (Bld) [Mass fraction] 6.3 % Critically high 4.5-6.[address] [facility] Comment on above: Performed By: #### A 1C ####[facility] [address] [address]Dr. Spencer Braun LIPID PROFILEon 04-30-2022 CHOL-HDL RATIO NORM SEE BELOW Normal [facility] Comment on above: Result Comment: 3.3 - 4.4 LOW RISK 4.4 - 7.1 AVERAGE RISK 7.1 - 11.0 MODERATE RISK >11.0 HIGH RISK Performed By: #### L IPID, TSH, T4, FT3, CMP ####[facility] [address] [id number] Branu Cholesterol [Mass/Vol] 177 mg/dL Normal <=[address] [facility] Comment on above: Performed By: #### L IPID, TSH, T4, FT3, CMP ####[facility] [address] [id number] Braun Cholesterol in HDL [Mass/Vol] 56 mg/dL Normal 40-[address] [facility] Comment on above: Performed By: #### L IPID, TSH, T4, FT3, CMP ####[facility] [address] [address]Dr. Spencer Braun Cholesterol in LDL [Mass/Vol] 97.8 mg/dL Normal [facility] Comment on above: Performed By: #### L IPID, TSH, T4, FT3, CMP ####[facility] [address] [address]Dr. Spencer Braun Cholesterol.total/Ch olesterol in HDL [Mass ratio] 3.2 {ratio} Normal [facility] Comment on above: Performed By: #### L IPID, TSH, T4, FT3, CMP ####[facility] [address] [place], [place] [address]Dr. Spencer Braun HDL NORMAL > or = 60 mg/dl - LOW CARDIOVASCULAR RISK <40 mg/dl - HIGH CARDIOVASCULAR RISK Normal [facility] Comment on above: Performed By: #### L IPID, TSH, T4, FT3, CMP ####[facility] [address] [place], [place] [address]Dr. Spencer Braun LDL CALC NORMAL SEE BELOW Normal [facility] Comment on above: Result Comment: <100 mg/dl OPTIMAL 100 - 129 mg/dl NEAR OR ABOVE OPTIMAL 130 - 159 mg/dl BORDERLINE HIGH 160 - 189 mg/dl HIGH >190 mg/dl VERY HIGH Performed By: #### L IPID, TSH, T4, FT3, CMP ####[facility] [address] [address]Dr. Spencer Braun Triglyceride [Mass/Vol] 116 mg/dL Normal <=150 [facility] Comment on above: Performed By: #### L IPID, TSH, T4, FT3, CMP ####[facility] [address] [place], [place] [address]Dr. Spencer Braun VLDL CALC 23.2 mg/dL Normal [facility] Comment on above: Performed By: #### L IPID, TSH, T4, FT3, CMP ####[facility] [address] [address]Dr. Spencer Braun PROF 14(COMP METB)on 022 Albumin [Mass/Vol] 3.8 g/dL Normal 3.4-5.0 [facility] Comment on above: Performed By: #### L IPID, TSH, T4, FT3, CMP ####[facility] [address] [address]Dr. Spencer Braun Albumin/Globulin [Mass ratio] 0.9 {ratio} Normal [facility] Comment on above: Performed By: #### L IPID, TSH, T4, FT3, CMP ####[facility] [address] [address]Dr. Spencer Braun ALP [Catalytic activity/Vol] 143 U/L Critically high 46-[address] [facility] Comment on above: Performed By: #### L IPID, TSH, T4, FT3, CMP ####[facility] [address] [place], [place] [address]Dr. Spencer Braun ALT [Catalytic activity/Vol] 19 U/L Normal 14-[address] [facility] Comment on above: Performed By: #### L IPID, TSH, T4, FT3, CMP ####[facility] [address] [address]Dr. Spencer Braun Anion gap [Moles/Vol] 12.1 mmol/L Normal [facility] Comment on above: Performed By: #### L IPID, TSH, T4, FT3, CMP ####[facility] [address] [place], [place] [address]Dr. Spencer Braun AST [Catalytic activity/Vol] 17 U/L Normal 15-[address] [facility] Comment on above: Performed By: #### L IPID, TSH, T4, FT3, CMP ####[facility] [address] [place], [place] [address]Dr. Spencer Braun Bilirubin [Mass/Vol] 0.3 mg/dL Normal 0.2-1.[address] [facility] Comment on above: Performed By: #### L IPID, TSH, T4, FT3, CMP ####[facility] [address] [address]Dr. Spencer Braun Calcium [Mass/Vol] 9.5 mg/dL Normal 8.5-10.1 [facility] Comment on above: Performed By: #### L IPID, TSH, T4, FT3, CMP ####[facility] [address] [address]Dr. Spencer Braun Chloride [Moles/Vol] 102 mmol/L Normal 98-107 [facility] Comment on above: Performed By: #### L IPID, TSH, T4, FT3, CMP ####[facility] [address] [address]Dr. Spencer Braun CO2 [Moles/Vol] 32.6 mmol/L Critically high 21.0-32.[address] [facility] Comment on above: Performed By: #### L IPID, TSH, T4, FT3, CMP ####[facility] [address] [place], [place] [address]Dr. Spencer Braun Creatinine [Mass/Vol] 0.69 mg/dL Normal 0.55-1.02 [facility] Comment on above: Performed By: #### L IPID, TSH, T4, FT3, CMP ####[facility] [address] [place], [place] [address]Dr. Spencer Braun EGFR-AF SENEGALESE >60 Normal >=60 [facility] Comment on above: Performed By: #### L IPID, TSH, T4, FT3, CMP ####[facility] [address] [place], [place] [address]Dr. Spencer Braun EGFR-NON AF SENEGALESE >60 Normal >=60 [facility] Comment on above: Performed By: #### L IPID, TSH, T4, FT3, CMP ####[facility] [address] [place], [place] [address]Dr. Spencer Braun Globulin (S) [Mass/Vol] 4.1 g/dL Normal [facility] Comment on above: Performed By: #### L IPID, TSH, T4, FT3, CMP ####[facility] [address] [address]Dr. Spencer Braun Glucose [Mass/Vol] 108 mg/dL Critically high 74-106 [facility] Comment on above: Performed By: #### L IPID, TSH, T4, FT3, CMP ####[facility] [address] [place], [place] [address]Dr. Spencer Braun Potassium [Moles/Vol] 4.7 mmol/L Normal 3.5-5.1 [facility] Comment on above: Performed By: #### L IPID, TSH, T4, FT3, CMP ####[facility] [address] [place], [place] [address]Dr. Spencer Braun Protein [Mass/Vol] 7.9 g/dL Normal 6.4-8.2 [facility] Comment on above: Performed By: #### L IPID, TSH, T4, FT3, CMP ####[facility] [address] [place], [place] [address]Dr. Spencer Braun Sodium [Moles/Vol] 142 mmol/L Normal 136-145 [facility] Comment on above: Performed By: #### L IPID, TSH, T4, FT3, CMP ####[facility] [address] [place], [place] [address]Dr. Spencer Braun Urea nitrogen [Mass/Vol] 19.0 mg/dL Critically high 7.0-18.[address] [facility] Comment on above: Performed By: #### L IPID, TSH, T4, FT3, CMP ####[facility] [address] [place], [place] [address]Dr. Spencer Braun Urea nitrogen/Creatinine [Mass ratio] 27.5 mg/mg Normal [facility] Comment on above: Performed By: #### L IPID, TSH, T4, FT3, CMP ####[facility] [address] [place], [place] [address]Dr. Spencer Braun T4on 04-30-2022 T4 [Mass/Vol] 8.30 ug/dL Normal 4.80-13.90 [facility] Comment on above: Performed By: #### L IPID, TSH, T4, FT3, CMP ####[facility] [address] [place], [place] [address]IiManish Braun TSHon 04-30-2022 TSH 1.777 uIU/mL Normal 0.358-3.740 [facility] Comment on above: Performed By: #### L IPID, TSH, T4, FT3, CMP ####[facility] [address] [place], [place] [address]WlManish Braun VITAMIN D 25 OHon 04-30-2022 VIT D 25-OH 72.1 ng/mL Normal [facility] Comment on above: Performed By: #### V ITAD #### [facility] [address] [address] [address] Spencer Braun VIT D RANGES SEE BELOW Normal [facility] Comment on above: Result Comment: <20 ng/mL Vit D deficient 20 - <30 ng/mL Vit D insufficient 30 - 100 ng/mL Vit D sufficient >100 ng/mL Potential Toxicity Performed By: #### V ITAD #### [facility] [address] [place], [place] [address] Dr. Spencer Braun MG MAMM SCREEN 3D AWAIS CADon 02-16-2022 MG MAMM SCREEN 3D AWAIS CAD Patient: BETH STARKEY Exam Date: 02/16/2022 : 1940 Gender:F Ordering : DR MARCK TATE . Admission #: [id number] Family : Order #: [id number] CLICK HERE TO VIEW EXAM RADIOLOGY REPORT [...] prostate cancer at age 71. LOCATION: [facility] BREAST COMPOSITION: Heterogeneously dense,which may obscure [...] MD on 02/17/2022 at 07:39 Normal [facility] Vital Signs Date Time Vital Sign Value Performing Clinician Tony jenkins 09-28-2024 14:15-0400 Measurement/Vitals Comment Unable to obtain; Telephone visit. Nati Petty [facility] 08-15-2024 14:13-0400 Body mass index (BMI) [Ratio] 29.63 kg/m2 Timo Ihsan DO Work Phone: [facility] 08-15-2024 14:13-0400 Body weight 71.12 kg Timo Ihsan DO Work Phone: [facility] 08-15-2024 14:13-0400 Diastolic blood pressure 80 mm[Hg] Timo Ihsan DO Work Phone: [facility] 08-15-2024 14:13-0400 Systolic blood pressure 114 mm[Hg] Timo Ihsan DO Work Phone: [facility] 07-17-2024 15:08-0500 Body mass index (BMI) [Ratio] 29.44 kg/m2 Timo Ihsan DO Work Phone: [facility] 07-17-2024 15:08-0500 Body weight 70.67 kg Timo Ihsan DO Work Phone: [facility] 07-17-2024 15:08-0500 Diastolic blood pressure 70 mm[Hg] Timo Ihsan DO Work Phone: [facility] 07-17-2024 15:08-0500 Systolic blood pressure 120 mm[Hg] Timo Ihsan DO Work Phone: [facility] 12-16-2023 15:18-0400 Diastolic blood pressure 68 mm[Hg] Tam Mauricionus [facility] 12-16-2023 15:18-0400 Systolic blood pressure 118 mm[Hg] Tam Mauricionus [facility] 05-12-2023 10:13-0500 Diastolic blood pressure 72 mm[Hg] Sha Barrerasilke [facility] 05-12-2023 10:13-0500 Heart rate 94 /min Sha Vallejo [facility] 05-12-2023 10:13-0500 SaO2% (BldA) [Mass fraction] 90 % Sha Rodpippasilke [facility] 05-12-2023 10:13-0500 Systolic blood pressure 130 mm[Hg] Sha Barrerasilke [facility] 05-03-2023 12:24-0500 Diastolic blood pressure 59 mm[Hg] Jena Hicks MD Work Phone: [facility] 05-03-2023 12:24-0500 Heart rate 86 /min Jena Hicks MD Work Phone: [facility] 05-03-2023 12:24-0500 Systolic blood pressure 103 mm[Hg] Jena Hicks MD Work Phone: [facility] 05-03-2023 12:14-0500 Body height 152.4 cm Jena Hicks MD Work Phone: [facility] 05-03-2023 12:14-0500 Body temperature 98.29 [degF] Jena Hciks MD Work Phone: [facility] 05-03-2023 12:14-0500 Body weight 65.82 kg Jena Hicks MD Work Phone: [facility] 05-03-2023 12:14-0500 Respiratory rate 16 /min Jena Hicks MD Work Phone: [facility] 05-03-2023 12:14-0500 SaO2% (BldA) [Mass fraction] 93 % Jena Hicks MD Work Phone: [facility] 09-06-2022 09:39-0400 Blood Pressure Location Dayron Jorgensen [facility] 09-06-2022 09:39-0400 Diastolic blood pressure 81 mm[Hg] Dayron Davidsonan [facility] 09-06-2022 09:39-0400 Heart rate 103 /min Dayron Davidsonan [facility] 09-06-2022 09:39-0400 SaO2% (BldA) [Mass fraction] 90 % Dayron Davidsonan [facility] 09-06-2022 09:39-0400 Systolic blood pressure 126 mm[Hg] [facility] Encounters Encounter Date Encounter Type Care Provider Facility Start: 12-07-2024 End: 12-07-2024 ambulatory XXXX NONE Facility:[facility] Start: 09-28-2024 End: 09-28-2024 Patient encounter procedure Nati Petty [facility] Start: 09-28-2024 End: 09-28-2024 ambulatory PA-C Nati Petty Facility:[facility] Start: 08-16-2024 End: 09-28-2024 Patient encounter procedure Jus Del Castillo [facility] Start: 08-15-2024 End: 08-15-2024 Bamboo flowsheet [...] Start: 07-20-2024 End: 07-20-2024 ambulatory XXXX NONE Facility:[facility] Start: 07-17-2024 End: 07-17-2024 Office outpatient visit [...] End: 07-06-2024 Patient encounter procedure Tam Vallejo [facility] Start: 01-20-2024 End: 01-20-2024 ambulatory [facility] Start: 01-09-2024 End: 01-10-2024 ambulatory [facility] Start: 12-16-2023 End: 12-17-2023 Pre-admission assessment Tam Vallejo [facility] Start: 12-16-2023 End: 12-16-2023 ambulatory XXXX NONE Facility:[facility] Start: 11-09-2023 End: 11-09-2023 ambulatory TIMO CHAMPAGNE Not Available Start: 05-12-2023 End: 05-12-2023 Patient encounter procedure Sha Vallejo [facility] Start: 05-04-2023 Orders Only Jena Hicks MD Work Phone: [facility] Comment on above: 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); Bilateral carotid artery stenosis; Other disorders of arteries, arterioles and capillaries in diseases classified elsewhere (HCC) Start: 05-03-2023 End: 05-03-2023 ambulatory JENA HICKS Facility:[facility] Start: 05-03-2023 End: 05-03-2023 Office outpatient visit 25 minutes Jena Hicks MD Work Phone: [facility] Comment on above: 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) Start: 04-26-2023 Orders Only Jena Hicks MD Work Phone: [facility] Comment on above: Chest pain, unspecif ied type (Primary Dx) Start: 04-25-2023 Telephone encounter No Pcp [employer] NOC Comment on above: Appointment Start: 04-22-2023 Telephone encounter No One (Historic al) Referring Physician Comment on above: External Referrals/r esources Start: 03-23-2023 End: 03-23-2023 Patient encounter procedure Sha Vallejo [facility] Start: 01-20-2023 End: 01-20-2023 Patient encounter procedure Sha Vallejo [facility] Start: 09-24-2022 End: 09-24-2022 Patient encounter procedure Dayron Jorgensen [facility] Start: 09-06-2022 End: 09-06-2022 Patient encounter procedure Dayron Jorgensen [facility] Start: 08-02-2022 End: 08-03-[address] MARCK TATE . Facility:[facility] Start: 07-28-2022 End: 07-28-[address] MARCK TATE . Facility:[facility] Start: 07-14-2022 End: 07-15-[address] MARCK TATE . Facility:[facility] Start: 04-30-2022 End: 05-01-[address] MARCK TATE . Facility:[facility] Start: 02-16-2022 End: 02-17-[address] MARCK TATE . Facility: Start: 06-17-2017 End: 06-18-2017 Ambulatory DEFAULT PHYSICIAN Facility:[facility] Plan of Treatment Date Care Activity Detail Author Start: 07-04-2029 Urine microalbumin profile DTaP,Tdap,Td Vaccine (2 - Td or Tdap) [facility] Start: 08-15-2024 End: 08-15-2024 Patient encounter procedure 08/15/2024 1:50 PM EDT Office Visit [facility] [address] [place] [address] Timo Champagne, [address], [place] [address] Arrived [facility] Comment on above: Arrived Start: 08-07-2024 End: 08-07-2024 Professional / ancillary services management 08/07/2024 2:30 PM EDT Ancillary Procedure [facility] [address] [place] [address] [facility] Start: 07-17-2024 End: 07-17-2024 Patient encounter procedure 07/17/2024 2:40 PM EST Office Visit [facility] [address] [place] [address] Timo Champagne, DO [address] [place] [address] [place] [address] Arrived [facility] Comment on above: Arrived Start: 07-17-2024 End: 07-17-2025 US Pelvis US Pelvis w/ TV Imaging Routine Cyst of left ovary Expected: 07/17/2024, Expires: 07/17/2025 [facility] Work Phone: Comment on above: Expected: 07/17/2024 , Expires: 07/17/2025 Start: 01-22-2024 Influenza vaccination Influenza Vacc ine (#1) [facility] Start: 01-21-2023 Influenza vaccination Influenza Vacc ine (#1) [facility] Start: 05-23-2022 Advance Directive Discussion Advance Directive Discussion [facility] Start: 05-23-2022 Depression Assessment Depression Ass essment [facility] Start: 03-23-2018 Pneumococcal Vaccine : 65+ Years (2 of 2 - PPSV23 or PCV20) Pneumococcal Vaccine: 65+ Years (2 of 2 - PPSV23 or PCV20) [facility] Start: 05-18-2017 Pneumococcal Vaccine : 65+ (2 - PPSV23 or PCV20) Pneumococcal Vaccine: 65+ (2 - PPSV23 or PCV20) [facility] Start: 2006 Bone Density Screening Bone Density Screening [facility] Start: 2006 Pneumococcal Vaccine : 65+ (1 - PCV) Pneumococcal Vaccine: 65+ (1 - PCV) [facility] Start: 2006 Screening for osteoporosis Bone Density Screening [facility] Start: 2001 RSV Vaccine (1 - 1-d ose 60+ series) RSV Vaccine (1 - 1-dose 60+ series) [facility] Start: 1991 Shingrix Vaccine (1 of 2) Shingrix Vaccine (1 of 2) [facility] Start: 1986 Diabetes Screening Diabetes Screenin g [facility] Start: 1941 Covid-19 Vaccine (#1) Covid-19 Vacci ne (#1) [facility] End: 05-25-2024 Ct angio abd&plvis cntrst mtrl w/wo cntrst img CTA ABD/PEL WO/W IVCON Radiology Routine Chest pain, unspecified type 1 Occurrences starting 04/26/2023 until 05/25/2024 [facility] Work Phone: Comment on above: 1 Occurrences starti ng 04/26/2023 until 05/25/2024 End: 06-02-2024 Ct angio abd&plvis cntrst mtrl w/wo cntrst img CTA ABD/PEL WO/W IVCON Radiology Routine 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 Occurrences starting 05/04/2023 until 06/02/2024 [facility] Work Phone: Comment on above: 1 Occurrences starti ng 05/04/2023 until 06/02/2024 End: 05-25-2024 Ct angiography chest w/contrast/noncontrast CTA CHEST (NONGATED) WO/W IVCON Radiology Routine Chest pain, unspecified type 1 Occurrences starting 04/26/2023 until 05/25/2024 [facility] Work Phone: Comment on above: 1 Occurrences starti ng 04/26/2023 until 05/25/2024 End: 06-02-2024 Ct angiography chest w/contrast/noncontrast CTA CHEST (NONGATED) WO/W IVCON Radiology Routine 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 Occurrences starting 05/04/2023 until 06/02/2024 [facility] Work Phone: Comment on above: 1 Occurrences starti ng 05/04/2023 until 06/02/2024 End: 05-04-2024 PVR ANK/HILL/TOE AWAIS VAS LAB PVR ANK/HILL/TOE AWAIS VAS LAB Vascular Lab Routine 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) Other disorders of arteries, arterioles and capillaries in diseases classified elsewhere (HCC) 1 Occurrences starting 05/04/2023 until 05/04/2024 [facility] Work Phone: Comment on above: 1 Occurrences starti ng 05/04/2023 until 05/04/2024 End: 05-04-2024 US CAROTID ARTERIES AWAIS VAS LAB US CAROTID ARTERIES AWAIS VAS LAB Vascular Lab Routine Bilateral carotid artery stenosis 1 Occurrences starting 05/04/2023 until 05/04/2024 [facility] Work Phone: Comment on above: 1 Occurrences starti ng 05/04/2023 until 05/04/2024 [facility] Immunizations Immunization Date Immunization Notes Care Provider Kay bennett 01-20-2024 tetanus toxoid, redu gene diphtheria toxoid, and acellular pertussis vaccine, adsorbed Jus Magdalene [facility] 04-26-2023 influenza virus vaccine, unspecified formulation Timo Champagne DO Work Phone: [facility] 12-16-2021 SARS-CoV-2 mRNA (ergubyizdfe-rphz-guaqt se) vaccine Jus Magdalene [facility] Comment on above: Result Comment: 2024: [id number] 04-07-2021 SARS-CoV-2 (COVID-19 ) mRNA BNT-162b2 vax Jus Magdalene [facility] Comment on above: Result Comment: 2024: [id number] 09-29-2020 SARS-CoV-2 (COVID-19 ) mRNA BNT-162b2 vax Jus Magdalene [facility] 09-08-2020 SARS-CoV-2 (COVID-19 ) mRNA BNT-162b2 vax Jus Magdalene [facility] 04-23-2020 influenza virus vaccine, unspecified formulation Jus Magdalene [facility] 07-04-2019 tetanus toxoid, redu gene diphtheria toxoid, and acellular pertussis vaccine, adsorbed Jus Magdalene [facility] 03-23-2017 pneumococcal conjuga te vaccine, 13 valent Jus Magdalene [facility] 03-06-2017 influenza virus vaccine, unspecified formulation Jus Del Castillo [facility] Payers Date Payer Category [employer]ayer [employer] [id number] 2018 [employer] [id number] 2006 Medicare [id number] 1998 () [id number] 1959 [employer] ( and others) [id number] 1959 Medicare [id number] 1940 Unknown [id number] [id number]. 2.593 1941 Unknown [id number] 2.16840.1.633403.3.579. 2.593 1941 Unknown [id number] 2.16.840.1.790673.3.579. 2.593 1941 Unknown [id number] 2.16.840.1.199528.3.579. 2.593 1941 Unknown [id number] 2.16.840.1.814522.3.579. 2.593 1941 Unknown [id number] 2.16.840.1.450962.3.579. 2.1259 1941 Unknown [id number] 2.16.840.1.904157.3.579. 2.1259 1941 Unknown [id number] 2.16.840.1.317127.3.579. 2.1259 1941 Unknown [id number] 2.16.840.1.027910.3.579. 2.1259 1941 Unknown [id number] 2.16.840.1.155606.3.579. 2.727 1941 Unknown [id number] 2.16.840.1.693202.3.579. 2.727 1941 Unknown [id number] 2.16.840.1.830403.3.579. 2.727 1941 Unknown [id number] 2.16.840.1.132208.3.579. 2.727 1941 Unknown [id number] 2.16.840.1.585031.3.579. 2.727 Unknown Social History Date Type Detail Facility Start: 09-06-2022 End: 09-28-2024 Tobacco smoking status Heavy tobacco smoker (finding) [facility] Start: 05-03-2023 Sex Assigned At Female F [facility] smoking consumption unknown [facility] Start: 1940 Sex Assigned At Not on file [facility] Start: 05-23-1956 Tobacco smoking stat [facility] Smokes tobacco daily [facility] Start: 05-23-1956 History of tobacco use Cigarette Smo ker [facility] Start: 05-03-2023 Cigarettes smoked current (pack per day) - Reported 1.5 [facility] Start: 05-03-2023 Tobacco use and exposure Smoke less tobacco non-user [facility] Start: 05-03-2023 Alcohol intake Current drinke r of alcohol (finding) [facility] National Score (1-10 0), lower number is lower risk 87 [facility] Start: 05-03-2023 Alcohol Comment [facility] Sexual Orientation [facility] Start: 08-17-2022 Sex Female (finding) [facility] Functional Status Date Assessment Result Facility 09-28-2024 Functional Status N/A [facility] 12-16-2023 Functional Status N/A [facility] 05-12-2023 Functional Status N/A [facility] 09-06-2022 Functional Status No [facility] Clinical Notes 03-22-2023 to 08-15-2024 Patrizia [...] nursing note reviewed. Exam conducted with a diesel engine operator present. Vitals: Estimated body mass index [...] 12:06 PM EDT documented in this encounter [facility] 07-17-2024 History of Present illness Narrative [...] nursing note reviewed. Exam conducted with a diesel engine operator present. 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 [facility] 01-09-2024 Note [place] [facility] Note Reason for cardiology consult: Dyspnea on exertion, prior history of CAD Chief Complaint: Dyspnea on exertion HPI: Beth Starkey is a 83 y.o. 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 [facility] 05-26-2023 Note [facility]AR[facility] ([id number]) 1940 F Date Time Provider Department 05/26/23 [...] and brochure sent Lung Nodule Program Location: [place] Allergies As of Date: 05/26/2023 (No Known [...] Encounter Status:Closed by EVANGELINA BURNETT on 05/26/23 [facility] 05-26-2023 Note HNO ID: [id number] Author: ?, ?, ? Service: ? 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 Author Type: Nurse Practitioner Type: Progress Notes Filed: 05/18/2023 11:12 AM Note Text: Incidental Lung Nodule Enrollment Outreach attempt: 1st Attempt Outreach status: Complete Enrolled in Lung Nodule program: Referred Lung Nodule outreach: No outreach - Very small nodule, letter and brochure sent Lung Nodule Program Location: [facility] 05-03-2023 Note HNO ID: [id number] Author: Nadine Cummins RN Service: Radiology Author [...] DATE: May 03, 2023 TIME: 1:00 PM [facility] 05-03-2023 Note HNO ID: [id number] Author: Kandy Aragon RT(R) Service: Radiology Author [...] RT Tess(R) May 03, 2023 1:19 PM [facility] 05-03-2023 History and physical note Heart , Vascular and Thoracic [place] DEPARTMENT OF VASCULAR SURGERY OUTPATIENT VISIT DATE [...] - Moderate documented in this encounter [facility] 04-25-2023 Miscellaneous Notes Reason for call: Ms Starkey called,and she would like to schedule an appointment with vascular surgery Referred by Dr Judit [facility] and cell number: [phone] Diagnosis: AAA Kind Regards Med documented in this encounter [facility] 04-22-2023 Miscellaneous Notes Patient: Beth Starkey Date of : 1940 Patient phone number: [phone] Referring Provider for the encounter: Marck Tate MD Requesting Provider: N/A Reason for requesting visit (RFV/signs and symptoms/diagnosis): Sent Telephone Encounter - updated tracking. Person calling: caregiver: Patrizia Return call to: self Medical Records/Insurance Card scanned into Epic: Yes Comments: N/A documented in this encounter [facility] 03-23-2023 Evaluation + Plan note Diagnostic Tests PendingCreatinine 03/23/23 Future Scheduled TestsCTA Abd Aorto-bilat/ iliofemoral runoff 03/22/23 [facility] 03-22-2023 Evaluation + Plan note Future Scheduled TestsCTA Abd Aorto-bilat/ iliofemoral runoff 03/22/23 [facility] Evaluation + Plan note Future Appointments Appointment Date:10/11/2022 10:00:00 AM Scheduled Provider:Dayron Jorgensen MD Location:[facility] Appointment Type:Vascular Follow Up ([facility]) Future Scheduled TestsCTA Abdomen and Pelvis 09/06/22CTA Chest 09/06/22 [facility] Evaluation + Plan note Future Appointments Appointment Date:10/11/2022 10:00:00 AM Scheduled Provider:Dayron Jorgensen MD [facility] Type:[facility] Follow Up ([facility]) [facility] Evaluation + Plan note Future Scheduled TestsCTA Abd Aorto-bilat/ iliofemoral runoff 03/22/23 [facility] Evaluation + Plan note Future Appointments Appointment Date:06/18/2024 09:45:00 AM Scheduled Provider:Tam Vallejo MD [facility] [place] App[facility] Type:Cardiology Follow Up ([facility]) Future Scheduled TestsCTA Abd Aorto-bilat/ iliofemoral runoff 03/22/23 [facility] Evaluation + Plan note Future Appointments Appointment Date:07/20/2024 10:00:00 AM Scheduled Provider:Tam Vallejo MD [facility] [place] Appointment Type:Cardiology Follow Up ([facility]) Future Scheduled TestsLipid Panel 12/19/23NM Myocardial Spect Rest/Stress 1 Day 12/21/23Echo Transthoracic Complete 12/21/23CTA Abd Aorto-bilat/ iliofemoral runoff 03/22/23 [facility] Evaluation + Plan note Future Appointments Appointment Date:12/07/2024 03:00:00 PM Scheduled Provider:Jus Del Castillo MD Location:.[facility] [place] Appointment Type:Cardiology Follow Up (FT) Future Scheduled TestsLipid Panel 07/24/24NM Myocardial Spect Rest/Stress 1 Day 12/21/23Echo Transthoracic Complete 12/21/23CTA Abd Aorto-bilat/ iliofemoral runoff 09/17/24 [facility] Evaluation note Diagnosis Chest pain, unspecified type- Primary [facility] in this encounter [facility] Diagnosis 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 [facility] this encounter [facility] Diagnosis 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 Bilateral carotid artery stenosis Occlusion and stenosis of carotid artery without mention of cerebral infarction Other disorders of arteries, arterioles and capillaries in diseases classified elsewhere ([facility]) documented in this encounter [facility]* Diagnosis Cyst of left ovary Other and unspecified ovarian cyst documented in this encounter [facility] Healthcare[facility]* Diagnosis Encounter to discuss test results Other specified counseling Cyst of left ovary Other and unspecified ovarian cyst documented in this encounter [facility] Healthcare[facility]ospital course Narrative No data available for this section [facility] No data available for this section [facility] No data available for this section [facility]Reason for referral (narrative)* Outpatient Procedure (Routine) - Authorized Specialty Diagnoses / Procedures Referred By Manjula t Referred To Contact [facility] [place] Diagnoses 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) Other disorders of arteries, arterioles and capillaries in diseases classified elsewhere ([facility]) Procedures PVR ANK/HILL/TOE AWAIS VAS LAB NON-INVAS PHYSIOLOGIC STD EXTREMITY ART 2 LEVEL Jena Hicks MD [address] [place] [address] [facility] [place] [address] [place] [address] Referral ID Status Reason Start Date Expiration Date Visits Requested Visits Authorized [id number] Authorized Auto-Generat ed Referral 3 05/03/2024 1 1 * MRI/CT (Routine) - Authorized Specialty Diagnoses / Procedures Referred By Marcac t Referred To Contact CT IMAGING Diagnoses 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) Procedures CTA ABD/PEL WO/W IVCON CT ANGIO ABD&PLVIS CNTRST MTRL W/WO CNTRST Jena Todd MD [address] [place] [address] Ct Imaging [place] [address] Referral ID Status Reason Start Date Expiration Date Visits Requested Visits Authorized [id number] Authorized Auto-Generat ed Referral 3 06/02/2024 1 1 * MRI/CT (Routine) - Authorized Specialty Diagnoses / Procedures Referred By Manjula t Referred To Contact CT IMAGING Diagnoses 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) Procedures CTA CHEST (NONGATED) WO/W IVCON CT ANGIOGRAPHY CHEST W/CONTRAST/NONCONTRAST Jena Hicks MD [address] [place] [address] Ct Imaging [place] [address] Referral ID Status Reason Start Date Expiration Date Visits Requested Visits Authorized [id number] Authorized Auto-Generat ed Referral 3 06/02/2024 1 1 * Outpatient Procedure (Routine) - Authorized Specialty Diagnoses / Procedures [facility] Diagnoses Bilateral carotid artery stenosis Procedures US CAROTID ARTERIES AWAIS VAS LAB DUPLEX SCAN EXTRACRANIAL [place] [address] [place] [address] [facility] [place] [address] [place] [address] Referral ID Status Reason Start Date Expiration Date Visits Requested Visits Authorized [id number] Authorized Auto-Generat ed Referral 12/1305/03/2024 1 1 [facility] Summary Purpose Family History No Family [...] CT ANGIO ABD&PLVIS CNTRST MTRL W/[facility] Jena Hicks MD [address] [place] [address] Ct Imaging [place] [address] Referral ID Status Reason Start Date Expiration Date Visits Requested Visits Authorized [id number] Authorized Auto-Generat ed Referral 04/26/2023 05/25/2024 1 1 Specialty Diagnoses / Procedures Referred By Contac t Referred To Contact CT IMAGING Diagnoses Chest pain, unspecified type Procedures CTA CHEST (NONGATED) WO/W IVCON CT ANGIOGRAPHY CHEST W/CONTRAST/NONCONTRAST Jena Hicks MD [address] [place] [address] Ct Imaging [place] [address] Referral ID Status Reason Start Date Expiration Date Visits Requested Visits Authorized [id number] Authorized Auto-Generat ed Referral 04/26/2023 05/25/2024 1 1 Additional Source Comments INFORMATION SOURCE (unrecogn ized section and content) DATE CREATED AUTHOR 11/14/2017 [facility] DATE CREATED AUTHOR AUTHOR'S ORGANIZ ATION 08/09/2022 [facility] DATE CREATED AUTHOR AUTHOR'S ORGANIZ ATION 05/27/2023 [facility] DATE CREATED AUTHOR AUTHOR'S ORGANIZ ATION 01/22/2024 [facility] DATE CREATED AUTHOR AUTHOR'S ORGANIZ ATION 08/16/2024 [facility] EPIC DATE CREATED AUTHOR AUTHOR'S ORGANIZ ATION 12/11/2024 [facility] Patient Care team informatio n (unrecognized section and content) Trim Setter Relationship Specialty Start Date End Date Marck Tate MD [address] [facility] [place] [address] Family Medicine 04/22/23 Trim Setter Relationship Specialty Start Date End Date Marck Tate MD [address] [facility] [place] [address] Family Medicine 04/22/23 Trim Setter Relationship Specialty Start Date End Date Marck Tate MD [address] [facility] [place] [address] Family Medicine 04/22/23 Trim Setter Relationship Specialty Start Date End Date Marck Tate MD [address] [facility] [place] [address] Family Medicine 04/22/23 Trim Setter Relationship Specialty Start Date End Date Marck Tate MD [address] [place] [facility] [address] PCP - General Family Medicine 05/30/23 Trim Setter Relationship Specialty Start Date End Date Marck Tate MD [address] [place] [facility] [address] PCP - General Family Medicine 05/30/23 Trim Setter Relationship Specialty Start Date End Date Marck Tate MD [address] [place] [address] PCP - General Family Medicine 05/30/23 Trim Setter Relationship Specialty Start Date End Date Marck Tate MD [address] [place] [address] PCP - General Family Medicine 05/30/23 Source Comments (unrecognize d section and content) In the event this informatio n is protected by the Federal Confidentiality of Alcohol and Drug Abuse Patient Records regulations: The Federal rules restrict any use of the information to criminally investigate or prosecute any alcohol or drug abuse patient.[facility] the event this information is protected by the Federal Confidentiality of Alcohol and Drug Abuse Patient Records regulations: The Federal rules restrict any use of the information to criminally investigate or prosecute any alcohol or drug abuse patient.[facility] Hospital[facility] the event this information is protected by the Federal Confidentiality of Alcohol and Drug Abuse Patient Records regulations: The Federal rules restrict any use of the information to criminally investigate or prosecute any alcohol or drug abuse patient.[facility] Hospital[facility] the event this information is protected by the Federal Confidentiality of Alcohol and Drug Abuse Patient Records regulations: The Federal rules restrict any use of the information to criminally investigate or prosecute any alcohol or drug abuse patient.[facility] HospitalIn the event this information is protected by the Federal Confidentiality of Alcohol and Drug Abuse Patient Records regulations: The Federal rules restrict any use of the information to criminally investigate or prosecute any alcohol or drug abuse patient.[facility] Reason for Visit (unrecogniz ed section [...] BE BASED ON THE PRIMARY CLINICAL RECORDS. [facility]ibr[facility] Dorothea Dix [facility] provides no warranty or guarantee of the accuracy or completeness of information in this document.
--- OUTSIDE RECORDS SUMMARY | 2025-02-07 15:35 | XMS_ITS | Clinical Summary ---
Author Organization [facility] Address [address] [place], [place] [id number] Care Team Providers Care Shoe Lacer Name Role Phone Kwame Tate MD Unavailable [phone] 1 Allergies No known active allergies Medications glimepiride (AMARYL) 2 mg tablet Take 2 mg by mouth once daily. 3 Active lisinopril (ZESTRIL) 40 mg tablet Take 1 tablet by mouth every afternoon. 3 Active ezetimibe (ZETIA) 10 mg tablet Take 1 tablet by mouth every afternoon. 3 Active amLODIPine (NORVASC) 5 mg tablet Take 1 tablet by mouth every afternoon. 3 Active cetirizine (ZYRTEC) 10 mg tablet Take 1 tablet by mouth every afternoon. 3 Active pramipexole (MIRAPEX) 1 mg tablet Take 1 tablet by mouth every afternoon. 3 Active omeprazole (PRILOSEC) 20 mg capsule Take 20 mg by mouth once daily. 3 Active metFORMIN (GLUCOPHAGE) 500 mg tablet Take 1 tablet by mouth every 12 hours. 3 Active WIXELA INHUB 100-50 mcg/dose inhaler Inhale 1 Puff as instructed two times a day. 3 Active multivitamin (DAILY MULTI-VITAMIN) tablet Take 1 tablet by mouth once daily. Active melatonin 10 mg tab Take 10 mg by mouth daily at bedtime. Active calcium carbonate (CALCIUM 500 ORAL) Take 500 mg by mouth once daily. Active Cholecalciferol , Vitamin D3, (VITAMIN D) 25 mcg (1,000 unit) cap Take 1,000 Units by mouth once daily. Active Ascorbic Acid (VITAMIN C) 500 mg chew Take 500 mg by mouth once daily. Active BABY ASPIRIN ORAL Take 81 mg by mouth once daily. Active Family History Medical History Relation Comments Aneurysm Brother aorta ruptured Relation Status Comments Brother Social History Tobacco Use Types Packs/Day Years Used Date Smoking Tobacco: Every Day Cigarettes 1.5 68.7 Started: 05/23/1955 Smokeless Tobacco: Never Alcohol Use Standard Drinks/Week Comments Yes 0 (1 standard drink = 0.6 oz pur e alcohol) football season Area Deprivation Index Answer Date Himanshu rded National Score (1-100), lower number is lower ri sk 87 05/03/2023 State Score (1-10), lower number is lower risk 8 05/03/2023 Data from: https://www.neighborhoodatlas.medicine.[facility]/. Last address used for calculation [address] 05/03/2023 Comments Unknown Sex and Gender Information Value Date Recorded Sex Assigned at Not on file Legal Sex Female 9:56 AM EST Gender Identity Not on file Sexual Orientation Not on file Last Filed Vital Signs Vital Sign Reading Time Taken Comments Blood Pressure 103/59 05/03/2023 12:24 PM EST LA Pulse 86 05/03/2023 12:24 PM EST Temperature 36.8 C (98.3 F) 05/03/2023 12:14 PM EST Respiratory Rate 16 05/03/2023 12:1 4 PM EST Oxygen Saturation 93% 05/03/2023 12: 14 PM EST Inhaled Oxygen Concentration - - Weight 65.8 kg (145 lb 1.6 oz) 05/03/2023 12:14 PM EST Height 152.4 cm (5') 05/03/2023 12:14 PM EST with gym shoes on Body Mass Index 28.34 05/03/2023 12:14 PM EST Plan of Treatment Health Maintenance Due Date Last Done Comments Anxiety Screening 1959 Depression Screening 1959 Diabetes Screening 1986 Shingrix Vaccine (1 of 2) 1991 Medicare Annual Wellness Visit 02/20/2006 Bone Density Screening 2006 Pneumococcal Vaccine: 50+ (2 of 2 - PPSV23, PCV20, or PCV21) 05/18/2017 03/23/2017 Advance Directive Discussion 05/23/2024 Influenza Vaccine (#1) 2025 3, 04/23/2020, 03/06/2017 DTaP,Tdap,Td Vaccine (2 - Td or Tdap) 07/04/202904/2020 RSV Vaccine Completed 04/22/2023 Insurance MEDICARE [facility] Care Teams Shoe Lacer Relationship Specialty Start Date End Date Kwame Tate MD [address] [facility] [place] [place] [address] Family Medicine 04/22/23
--- OUTSIDE RECORDS SUMMARY | 2025-02-07 15:35 | XMS_ITS | Clinical Summary ---
Author Organization [facility] Address [address] [place] [address] Phone Care Team Providers Care Call Center Assistant Name Role Phone Unavailable Primary Care Provider Unavailabl e Social History Tobacco Use Types Packs/Day Years Used Date Smoking Tobacco: Never Assessed Comments Unknown Sex and Gender Information Value Date Recorded Sex Assigned at Not on file Legal Sex Female 7:57 PM EST Gender Identity Not on file Sexual Orientation Not on file Plan of Treatment Not on file
--- OUTSIDE RECORDS SUMMARY | 2025-02-07 15:36 | XMS_ITS | CCD ---
Author Organization [facility] Care Team Providers Care Solar Installation Technician Name Role Phone PHYSICIAN, DEFAULT Unavailable Unavailable PHYSICIAN, DEFAULT Unavailable Unavailable MARCK TATE Unavailable Unavailable HOY ., DR ACHARYA Admitting Unavailable HOY ., DR ACHARYA Attending Unavailable HOY ., DR ACHARYA Primary Care Unavailable HOY ., DR ACHARYA Consulting Unavailable GWINNER, DR SANDOVAL Ferguson Consulting Unavailable HOY ., [...] Propensity to adverse reactions (disorder) [facility] Repository Medications Current Medications Medication Drug Class(es) Dates Sig (Normalized) Sig (Original) amLODIPine 2.5 mg oral tablet (12 sources) Dihydropyridine Calcium Channel Yessica Start: 07-20-2024 take 1 tablet by mouth once daily Norvasc 2.5 mg Tab 2.5 mg = 1 tab(s), Oral, Daily, # 90 tab(s), Refills(s) 0, [id number], 152, cm, 07/20/24 10:08:00 EST, Height/Length Dosing, [...] Daily, # 30 tab(s), Refills(s) 6, [id number], 152, cm, 12/16/23 15:27:00 EDT, Height/Length Dosing, 69.1, kg, 12/16/23 15:27:00 EDT, Weight Dosing Start Date: 12/19/23 Status: Ordered Quantity: 30.0 Unit: tab(s) Repeat number: 7 calcium carbonate (Tums) 250 mg (wilton 100 mg) chewable split tablet (6 sources) calcium carbonat e (Tums) 250 mg (wilton 100 mg) chewable split tablet Take 500 [...] Daily, # 90 tab(s), Refills(s) 0, [id number], 152, cm, 07/20/24 10:08:00 EST, Height/Length Dosing, [...] Daily, # 30 tab(s), Refills(s) 6, [id number], 152, cm, 12/16/23 15:27:00 EDT, Height/Length Dosing, 69.1, kg, 12/16/23 15:27:00 EDT, Weight Dosing Start Date: 12/19/23 Status: Ordered Quantity: 30.0 Unit: tab(s) Repeat number: 7 Start: 12-16-2023 take 1 tablet by caty th once daily metoprolol succinate 25 mg ER Tab 25 mg = 1 tab(s), Oral, Daily, # 30 tab(s), Refills(s) 6, Pharmacy: [facility] #[id number], 152, cm, 12/16/23 15:27:00 EDT, Height/Length Dosing, [...] disease (7 sources) Atherosclerotic heart disease of [place] coronary artery without angina pectoris; Translations: [Coronary [...] as patient had to be rescheduled from Street. At last visit, patient saw Dr. Vallejo [...] -see outside records Assessment/Plan 1. CAD in [place] artery (I25.10: Atherosclerotic heart disease of [place] coronary artery without angina pectoris) The patient has history of CAD with prior PCI. She also had a recent stress test that was positive and considered high risk due to large reversible defect. However, patient refused heart cath when proposed by Dr. Vallejo last month last month. Again asked (more content not included)... Normal [facility] Comment on above: Result Comment: Elec tronically [...] as patient had to be rescheduled from Street. At last visit, patient saw Dr. Vallejo [...] -see outside records Assessment/Plan 1. CAD in [place] artery (I25.10: Atherosclerotic heart disease of [place] coronary artery without angina pectoris) The patient [...] with voice recognition artificial intelligence software, specifically HomeLight, UXPin and or PetHub. Substitutions may have occurred due to the inherent limitations of voice recognition and artificial intelligence software. Follow-up No qualifying data available Problem List/Past Medical History Ongoing AAA (abdominal aortic aneurysm) CAD in [place] artery HTN (hypertension) Historical No qualifying data [...] mg= 1 (more content not included)... Normal [facility] Comment on above: Result Comment: Elec tronically [...] II, MD, PHD at 09-Aug-2024 08:45:09 AM [facility] Normal Not Available Comment on above: [...] as indicated. [1] Assessment/Plan 1. CAD in [place] artery (I25.10: Atherosclerotic heart disease of [place] coronary artery without angina pectoris) Exertional dyspnea [...] A PONCE (more content not included)... Normal [facility] Comment on above: Result Comment: Elec tronically Signed By: Genevieve CURRIE, Tam Spain\.br\Date and Time Signed: 07/20/24 10:27 EST Office Visiton 01-20-2024 Follow-up visit [id number] Beth Starkey 1940 F Date Provider Department Center 01/20/2024 [id number] HOPE MONSE Delgado [facility] Family History Problem Relation Age of Onset Heart attack Father Diabetes Sister Coronary artery disease Brother Aneurysm Brother Diabetes Brother Family Status - Relation Status Age at Father Sister Brother Level of Service:76016 [place] OFFICE/OUTPATIENT ESTABLISHED MOD MDM 30 MIN Reason for Visit and Comments: Hyperlipidemia [182] Hypertension [576863] - Pt had a abnormal stress. Patient used the restroom in the ED right before apt and had a fall. She denies lightheadedness/dizz iness and syncope. She denies hiting her head. Shortness of Breath [[id number]] Normal [facility] Office Visiton 01-09-2024 Follow-up visit [id number] Beth Starkey 1940 F Date Provider Department Center 01/09/2024 [id number], SAMDANNIELLE MONSE [facility] Family History Problem Relation Age of Onset Heart attack Father Diabetes Sister Coronary artery disease Brother Aneurysm Brother Diabetes Brother Family Status - Relation Status Age at Father Sister Brother Level of Service:93902 [place] OFFICE/OUTPATIENT NEW MODERATE MDM 45 MINUTES Reason for Visit and Comments: New Patient [632] - Pt complains of sob. Normal [facility] Vascular Office/Cl inic Noteon [...] aneurysm, without rupture, unspecified) 2. CAD in [place] artery (I25.10: Atherosclerotic heart disease of [place] coronary artery without angina pectoris) 3. HTN [...] CURRIE, Edinson Kuhn 09/24/2022 10:55 EDT Normal [facility] Comment on above: Result Comment: Elec tronically Signed By: Genevieve CURRIE, Tam Spain\.ede\Date and Time Signed: 12/16/23 15:48 EDT REILLYon 05-03-2023 CNDANIEL Office Visit (YURI) BETH STARKEY ([id number]) 1940 F Date Time Provider Department 05/03/23 12:00 PM JENA HICKS During your visit today, we recorded the following information about you: Temperature Pulse Respiration Blood pressure 98.3 degrees 86/minute 16/minute 103/59 Weight Height 65.8 kg 1.524 m Jena Hicks MD 05/03/2023 3:31 PM Signed [facility] [place] DEPARTMENT OF VASCULAR SURGERY OUTPATIENT VISIT DATE May 03, 2023 OUTPATIENT VISIT TYPE CONSULTATION SERVICE DATE: 05/03/2023 SERVICE TIME: 12:42 PM PRIMARY CARE PHYSICIAN: No primary care provider on file. REFERRING PROVIDER: MARCK ATTE MD Consult requested for an opinion regarding [...] PHYSICAL E (more content not included)... Normal [facility] CTA ABD/PELV WO/W IVCONon CTA ABD/PELV WO/W IVCON * * *Final Report* * * DATE OF EXAM: May 03 2023 1:27PM [facility] 0467 - CTA ABD/PELV [...] stable BONES: degenerative changes of the spine Sock Knitter (topogram) images: No additional findings. IMPRESSION: * [...] (more content not included)... Invalid Interpretation Code [facility] CTA CHEST (NONGATED) WO/W IV CONon 05-03-2023 CTA CHEST (NONGATED) WO/W IVCON * * *Final Report* * * DATE OF EXAM: May 03 2023 1:27PM [facility] 0124 - CTA CHEST [...] stable BONES: degenerative changes of the spine Sock Knitter (topogram) images: No additional findings. IMPRESSION: * [...] (more content not included)... Invalid Interpretation Code [facility] HISTORY PHYSICALon HISTORY PHYSICAL HNO ID: [id number] Author: Jena Hicks MD Service: ? Author Type: Physician Type: HANDP Filed: 05/03/2023 3:31 PM Note Text: [facility] [place] DEPARTMENT OF VASCULAR SURGERY OUTPATIENT VISIT DATE [...] EOM, pupils (more content not included)... Normal [facility] 04-25-2023 [facility] Telephone (PODCCP) BETH STARKEY ([id number]) 1940 F Date Time Provider Department 04/25/23 NO PCP PODCCP During your visit today, we recorded the following information about you: Med Quiros 04/25/2023 4:23 PM Signed Reason for call: Ms Starkey called,and she would like to schedule an appointment with vascular surgery Referred by Dr Judit [facility] and cell number: [phone] Diagnosis: AAA Kind Regards Med Allergies As of Date: 04/25/2023 (Not on File) Date Reviewed: Never Reviewed Reason for Visit: Appointment [186] Problem List As Of Date: 04/25/2023 (None) Encounter Status:Closed by MED QUIROS on 04/25/23 [facility] 04-22-2023 [facility] Tele[facility] (REFPHY) BETH STARKEY ([id number]) 1940 F Date Time Provider Department 04/22/23 NO ONE (HISTORICAL) REFPHY During your visit today, we recorded the following information about you: Patrizia Orozco 04/22/2023 10:06 AM Signed Patient: Beth Starkey Date of : 1940 Patient phone number: [phone] Referring Provider for the encounter: Marck Tate [...] Status:Closed by PATRIZIA OROZCO on 04/22/23 Normal [facility] CHEMISTRYOrdered By: SYSTEM SYSTEM on 09-24-2022 Creatinine [Mass/Vol] 0.8 mg/dL Normal 0.5 - 1.3 mg/dL [facility] Remisol GFR/1.73 sq M.predicted among non-blacks MDRD (S/P/Bld) [Vol rate/Area] 74 mL/min/1.73 m2 Normal >=59mL/min/1. 73 m2 [facility] Chem S CT CHEST WO CONon 08-02-2022 [...] KAYY KAUR Date: 2022-08-02 10:52 Normal [facility] C. DIFF PCRon 07-28-2022 C. DIFFICILE PCR Negative Normal NEGATIVE [facility] Comment on above: Performed By: #### C DIFPOC #### [facility] [address] [place] [address] Dr. Spencer Braun OCC BLD IMMUNO SCREENon OCCULT BLOOD Negative Normal NEGATIVE [facility] Comment on above: Performed By: #### C BC #### [facility] [address] [place] [address] Dr. Spencer Braun INSULINon 07-15-2022 Insulin 17.7 uIU/mL Normal 2.6-24.9 [facility] Comment on above: Performed By: #### I NSULIN ####[facility] [address] [address]Dr. Spencer Braun BNPon 07-14-2022 Natriuretic peptide B (Bld) [Mass/Vol] 197.0 pg/mL Normal <=1,800.0 [facility] Comment on above: Performed By: #### B PROCED TECH, LIPID, CMP, T7, TSH #### [facility] [address] [address] [address] Spencer Braun CBC AUTO DIFFon 07-14-2022 BASO # 0.1 103/ul Normal 0.0-0.1 [facility] Comment on above: Performed By: #### C BC #### [facility] [address] [place] [address] Dr. Spencer Braun Basophils/100 WBC (Bld) 0.9 % Normal 0.2-2.0 [facility] Comment on above: Performed By: #### C BC #### [facility] [address] [place] [address] Dr. Spencer Braun EO # 0.2 103/ul Normal 0.0-0.7 [facility] Comment on above: Performed By: #### C BC #### [facility] [address] [place] [address] Dr. Spencer Braun Eosinophils/100 WBC (Bld) 2.5 % Normal 0.9-7.0 [facility] Comment on above: Performed By: #### C BC #### [facility] [address] [place] [address] Dr. Spencer rBaun Erythrocyte distribution width (RBC) [Ratio] 13.8 % Normal 11.0-15.0 [facility] Comment on above: Performed By: #### C BC #### [facility] [address] [place] [address] Dr. Spencer Braun Hematocrit (Bld) [Volume fraction] 45.1 % Normal 36.0-48.0 [facility] Comment on above: Performed By: #### C BC #### [facility] [address] [place] [address] Dr. Spencer Braun Hemoglobin (Bld) [Mass/Vol] 14.7 g/dL Normal 12.0-16.0 [facility] Comment on above: Performed By: #### C BC #### [facility] [address] [place] [address] Dr. Spencer Braun IG # 0.04 10e3/ul Critically high 0.00-0.03 [facility] Comment on above: Performed By: #### C BC #### [facility] [address] [place] [address] Dr. Spencer Braun IG % 0.5 % Normal 0.0-0.5 [facility] Comment on above: Performed By: #### C BC #### [facility] [address] [place] [address] Dr. Spencer Braun LYMPH # 1.6 103/ul Normal 1.2-3.8 [facility] Comment on above: Performed By: #### C BC #### [facility] [address] [place] [address] Dr. Spencer Braun Lymphocytes/100 WBC (Bld) 20.4 % Critically low 20.5-60.0 [facility] Comment on above: Performed By: #### C BC #### [facility] [address] [place] [address] Dr. Spencer Braun MANUAL DIFF REQ NO Normal [facility] Comment on above: Performed By: #### C BC #### [facility] [address] [place] [address] Dr. Spencer Braun MCH (RBC) [Entitic mass] 28.8 pg Normal 26.7-34.0 [facility] Comment on above: Performed By: #### C BC #### [facility] [address] [place] [address] Dr. Spencer Braun MCHC (RBC) [Mass/Vol] 32.6 g/dL Normal 29.9-35.2 [facility] Comment on above: Performed By: #### C BC #### [facility] [address] [place] [address] Dr. Spencer Braun MCV (RBC) [Entitic vol] 88.3 fL Normal 81.0-99.0 [facility] Comment on above: Performed By: #### C BC #### [facility] [address] [place] [address] Dr. Spencer Braun MONO # 0.5 103/ul Normal 0.3-0.8 [facility] Comment on above: Performed By: #### C BC #### [facility] [address] [place] [address] Dr. Spencer Braun Monocytes/100 WBC (Bld) 6.5 % Normal 1.7-12.0 [facility] Comment on above: Performed By: #### C BC #### [facility] [address] [place] [address] Dr. Spencer Braun NEUT # 5.4 103/ul Normal 1.4-6.5 [facility] Comment on above: Performed By: #### C BC #### [facility] [address] [address] [address] Spencer Braun Neutrophils/100 WBC (Bld) 69.2 % Normal 43.0-75.0 [facility] Comment on above: Performed By: #### C BC #### [facility] [address] [address] [address] Spencer Braun Platelet mean volume (Bld) [Entitic vol] 9.1 fL Critically low 9.5-13.5 [facility] Comment on above: Performed By: #### C BC #### [facility] [address] [address] [address] Spencer Braun PLT 190 103/ul Normal 150-450 [facility] Comment on above: Performed By: #### C BC #### [facility] [address] [place] [address] Dr. Spencer Braun RBC 5.11 106/ul Normal 4.20-5.40 [facility] Comment on above: Performed By: #### C BC #### [facility] [address] [address] [address] Spencer Braun WBC 7.7 103/ul Normal 4.0-11.0 [facility] Comment on above: Performed By: #### C BC #### [facility] [address] [address] [address] Spencer Braun FREE THYROXINE INDEX T7on FTI 2.87 Normal 1.30-4.50 [facility] Comment on above: Performed By: #### B PROCED TECH, LIPID, CMP, T7, TSH ####[facility] [address] [id number]. Spencer Braun T3U 33.0 % Normal 30.0-39.0 [facility] Comment on above: Performed By: #### B PROCED TECH, LIPID, CMP, T7, TSH ####[facility] [address] [id number]. Spencer Braun T4 [Mass/Vol] 8.70 ug/dL Normal 4.80-13.90 [facility] Comment on above: Performed By: #### B PROCED TECH, LIPID, CMP, T7, TSH ####[facility] [address] [place], [place] [address]XiManish Braun GLYCOHEMOGLOBIN A1Con 2022 ADA RECOMMENDATION SEE BELOW Normal [facility] Comment on above: Result Comment: ADA RECOMMENDED LIMIT 4.0 - 6.0 ADA THERAPEUTIC TARGET < 7.0 ACTION SUGGESTED > 7.0 Performed By: #### A 1C ####[facility] [address] [id number] Braun Glucose [Mass/Vol] 123 mg/dL Normal [facility] Comment on above: Performed By: #### A 1C ####[facility] [address] [id number] Braun HbA1c (Bld) [Mass fraction] 5.9 % Normal 4.5-6.2 [facility] Comment on above: Performed By: #### A 1C ####[facility] [address] [id number] Braun IRONon 07-14-2022 Iron [Mass/Vol] 70.0 ug/dL Normal 50.0-170.0 [facility] Comment on above: Performed By: #### V ITAD, IRON #### [facility] [address] [place], [place] [address] Dr. Spencer Braun LIPID PROFILEon 07-14-2022 CHOL-HDL RATIO NORM SEE BELOW Normal [facility] Comment on above: Result Comment: 3.3 - 4.4 LOW RISK 4.4 - 7.1 AVERAGE RISK 7.1 - 11.0 MODERATE RISK >11.0 HIGH RISK Performed By: #### B PROCED TECH, LIPID, CMP, T7, TSH ####[facility] [address] [place], [place] [address]YiManish Braun Cholesterol [Mass/Vol] 180 mg/dL Normal <=200 [facility] Comment on above: Performed By: #### B PROCED TECH, LIPID, CMP, T7, TSH ####[facility] [address] [id number] Braun Cholesterol in HDL [Mass/Vol] 50 mg/dL Normal 40-60 [facility] Comment on above: Performed By: #### B PROCED TECH, LIPID, CMP, T7, TSH ####[facility] [address] [id number]. Spencer Braun Cholesterol in LDL [Mass/Vol] 105.8 mg/dL Normal [facility] Comment on above: Performed By: #### B PROCED TECH, LIPID, CMP, T7, TSH ####[facility] [address] [id number]. Spencer Braun Cholesterol.total/Ch olesterol in HDL [Mass ratio] 3.6 {ratio} Normal [facility] Comment on above: Performed By: #### B PROCED TECH, LIPID, CMP, T7, TSH ####[facility] [address] [address]Dr. Spencer Braun HDL NORMAL > or = 60 mg/dl - LOW CARDIOVASCULAR RISK <40 mg/dl - HIGH CARDIOVASCULAR RISK Normal [facility] Comment on above: Performed By: #### B PROCED TECH, LIPID, CMP, T7, TSH ####[facility] [address] [place] [address]Dr. Spencer Braun LDL CALC NORMAL SEE BELOW Normal [facility] Comment on above: Result Comment: <100 mg/dl OPTIMAL 100 - 129 mg/dl NEAR OR ABOVE OPTIMAL 130 - 159 mg/dl BORDERLINE HIGH 160 - 189 mg/dl HIGH >190 mg/dl VERY HIGH Performed By: #### B PROCED TECH, LIPID, CMP, T7, TSH ####[facility] [address] [id number]. Spencer Braun Triglyceride [Mass/Vol] 121 mg/dL Normal <=150 [facility] Comment on above: Performed By: #### B PROCED TECH, LIPID, CMP, T7, TSH ####[facility] [address] [address]Dr. Spencer Braun VLDL CALC 24.2 mg/dL Normal [facility] Comment on above: Performed By: #### B PROCED TECH, LIPID, CMP, T7, TSH ####[facility] [address] [address]Dr. Spencer Braun PROF 14(COMP METB)on 023 Albumin [Mass/Vol] 3.8 g/dL Normal 3.4-5.[address] [facility] Comment on above: Performed By: #### B PROCED TECH, LIPID, CMP, T7, TSH #### [facility] [address] [address] [address] Spencer Braun Albumin/Globulin [Mass ratio] 1.0 {ratio} Normal [facility] Comment on above: Performed By: #### B PROCED TECH, LIPID, CMP, T7, TSH #### [facility] [address] [place] [address] Dr. Spencer Braun ALP [Catalytic activity/Vol] 135 U/L Critically high 46-116 [facility] Comment on above: Performed By: #### B PROCED TECH, LIPID, CMP, T7, TSH #### [facility] [address] [place] [address] Dr. Spencer Braun ALT [Catalytic activity/Vol] 20 U/L Normal 14-59 [facility] Comment on above: Performed By: #### B PROCED TECH, LIPID, CMP, T7, TSH #### [facility] [address] [address] [address] Spencer Braun Anion gap [Moles/Vol] 8.4 mmol/L Normal [facility] Comment on above: Performed By: #### B PROCED TECH, LIPID, CMP, T7, TSH #### [facility] [address] [place] [address] Dr. Spencer Braun AST [Catalytic activity/Vol] 14 U/L Critically low 15-37 [facility] Comment on above: Performed By: #### B PROCED TECH, LIPID, CMP, T7, TSH #### [facility] [address] [address] [address] Spencer Braun Bilirubin [Mass/Vol] 0.4 mg/dL Normal 0.2-1.0 [facility] Comment on above: Performed By: #### B PROCED TECH, LIPID, CMP, T7, TSH #### [facility] [address] [place] [address] Dr. Spencer Braun Calcium [Mass/Vol] 9.5 mg/dL Normal 8.5-10.1 [facility] Comment on above: Performed By: #### B PROCED TECH, LIPID, CMP, T7, TSH #### [facility] [address] [place] [address] Dr. Spencer Braun Chloride [Moles/Vol] 104 mmol/L Normal 98-107 [facility] Comment on above: Performed By: #### B PROCED TECH, LIPID, CMP, T7, TSH #### [facility] [address] [place] [address] Dr. Spencer Braun CO2 [Moles/Vol] 32.0 mmol/L Normal 21.0-32.0 [facility] Comment on above: Performed By: #### B PROCED TECH, LIPID, CMP, T7, TSH #### [facility] [address] [place] [address] Dr. Spencer Braun Creatinine [Mass/Vol] 0.72 mg/dL Normal 0.55-1.02 [facility] Comment on above: Performed By: #### B PROCED TECH, LIPID, CMP, T7, TSH #### [facility] [address] [place] [address] Dr. Spencer Braun EGFR-AF GREEK >60 Normal >=60 [facility] Comment on above: Performed By: #### B PROCED TECH, LIPID, CMP, T7, TSH #### [facility] [address] [place] [address] Dr. Spencer Braun EGFR-NON AF GREEK >60 Normal >=60 [facility] Comment on above: Performed By: #### B PROCED TECH, LIPID, CMP, T7, TSH #### [facility] [address] [place] [address] Dr. Spencer Braun Globulin (S) [Mass/Vol] 3.9 g/dL Normal [facility] Comment on above: Performed By: #### B PROCED TECH, LIPID, CMP, T7, TSH #### [facility] [address] [place] [address] Dr. Spencer Braun Glucose [Mass/Vol] 127 mg/dL Critically high 74-106 [facility] Comment on above: Performed By: #### B PROCED TECH, LIPID, CMP, T7, TSH #### [facility] [address] [place] [address] Dr. Spencer Braun Potassium [Moles/Vol] 4.4 mmol/L Normal 3.5-5.1 [facility] Comment on above: Performed By: #### B PROCED TECH, LIPID, CMP, T7, TSH #### [facility] [address] [place] [address] Dr. Spencer Braun Protein [Mass/Vol] 7.7 g/dL Normal 6.4-8.[address] [facility] Comment on above: Performed By: #### B PROCED TECH, LIPID, CMP, T7, TSH #### [facility] [address] [place] [address] Dr. Spencer Braun Sodium [Moles/Vol] 140 mmol/L Normal 136-[address] [facility] Comment on above: Performed By: #### B PROCED TECH, LIPID, CMP, T7, TSH #### [facility] [address] [place] [address] Dr. Spencer Braun Urea nitrogen [Mass/Vol] 18.0 mg/dL Normal 7.0-18.0 [facility] Comment on above: Performed By: #### B PROCED TECH, LIPID, CMP, T7, TSH #### [facility] [address] [place] [address] Dr. Spencer Braun Urea nitrogen/Creatinine [Mass ratio] 25.0 mg/mg Normal [facility] Comment on above: Performed By: #### B PROCED TECH, LIPID, CMP, T7, TSH #### [facility] [address] [place] [address] Dr. Spencer Braun TSHon 07-14-2022 TSH 1.760 uIU/mL Normal 0.358-3.740 [facility] Comment on above: Performed By: #### B PROCED TECH, LIPID, CMP, T7, TSH #### [facility] [address] [place] [address] Dr. Spencer Braun VITAMIN D 25 OHon 07-14-2022 VIT D 25-OH 85.7 ng/mL Normal [facility] Comment on above: Performed By: #### V ITAD, IRON #### [facility] [address] [place] [address] Dr. Spencer Braun VIT D RANGES SEE BELOW Normal [facility] Comment on above: Result Comment: <20 ng/mL Vit D deficient 20 - <30 ng/mL Vit D insufficient 30 - 100 ng/mL Vit D sufficient >100 ng/mL Potential Toxicity Performed By: #### V ITAD, IRON #### [facility] [address] [place] [address] Dr. Spencer Braun CBC AUTO DIFFon 04-30-2022 BASO # 0.1 103/ul Normal 0.0-0.1 [facility] Comment on above: Performed By: #### C BC #### [facility] [address] [place] [address] Dr. Spencer Braun Basophils/100 WBC (Bld) 0.9 % Normal 0.2-2.0 [facility] Comment on above: Performed By: #### C BC #### [facility] [address] [place] [address] Dr. Spencer Braun EO # 0.2 103/ul Normal 0.0-0.7 [facility] Comment on above: Performed By: #### C BC #### [facility] [address] [place] [address] Dr. Spencer Braun Eosinophils/100 WBC (Bld) 2.1 % Normal 0.9-7.0 [facility] Comment on above: Performed By: #### C BC #### [facility] [address] [place] [address] Dr. Spencer Bruan Erythrocyte distribution width (RBC) [Ratio] 13.9 % Normal 11.0-15.0 [facility] Comment on above: Performed By: #### C BC #### [facility] [address] [place] [address] Dr. Spencer Braun Hematocrit (Bld) [Volume fraction] 46.2 % Normal 36.0-48.0 [facility] Comment on above: Performed By: #### C BC #### [facility] [address] [place] [address] Dr. Spencer Braun Hemoglobin (Bld) [Mass/Vol] 15.1 g/dL Normal 12.0-16.0 [facility] Comment on above: Performed By: #### C BC #### [facility] [address] [place] [address] Dr. Spencer Braun IG # 0.05 10e3/ul Critically high 0.00-0.03 [facility] Comment on above: Performed By: #### C BC #### [facility] [address] [place] [address] Dr. Spencer Braun IG % 0.6 % Critically high 0.0-0.5 [facility] Comment on above: Performed By: #### C BC #### [facility] [address] [place] [address] Dr. Spencer Braun LYMPH # 1.7 103/ul Normal 1.2-3.8 [facility] Comment on above: Performed By: #### C BC #### [facility] [address] [place] [address] Dr. Spencer Braun Lymphocytes/100 WBC (Bld) 20.3 % Critically low 20.5-60.0 [facility] Comment on above: Performed By: #### C BC #### [facility] [address] [place] [address] Dr. Spencer rBaun MANUAL DIFF REQ NO Normal [facility] Comment on above: Performed By: #### C BC #### [facility] [address] [place] [address] Dr. Spencer Braun MCH (RBC) [Entitic mass] 28.8 pg Normal 26.7-34.0 [facility] Comment on above: Performed By: #### C BC #### [facility] [address] [place] [address] Dr. Spencer Braun MCHC (RBC) [Mass/Vol] 32.7 g/dL Normal 29.9-35.2 [facility] Comment on above: Performed By: #### C BC #### [facility] [address] [place] [address] Dr. Spencer Braun MCV (RBC) [Entitic vol] 88.2 fL Normal 81.0-99.0 [facility] Comment on above: Performed By: #### C BC #### [facility] [address] [address] [address] Spencer Braun MONO # 0.6 103/ul Normal 0.3-0.8 [facility] Comment on above: Performed By: #### C BC #### [facility] [address] [address] [address] Spencer Braun Monocytes/100 WBC (Bld) 7.1 % Normal 1.7-12.0 [facility] Comment on above: Performed By: #### C BC #### [facility] [address] [place] [address] Dr. Spencer Braun NEUT # 5.7 103/ul Normal 1.4-6.5 [facility] Comment on above: Performed By: #### C BC #### [facility] [address] [place] [address] Dr. Spencer Braun Neutrophils/100 WBC (Bld) 69.0 % Normal 43.0-75.0 [facility] Comment on above: Performed By: #### C BC #### [facility] [address] [place] [address] Dr. Spencer Braun Platelet mean volume (Bld) [Entitic vol] 9.2 fL Critically low 9.5-13.5 [facility] Comment on above: Performed By: #### C BC #### [facility] [address] [place] [address] Dr. Spencer Braun PLT 180 103/ul Normal 150-450 [facility] Comment on above: Performed By: #### C BC #### [facility] [address] [place] [address] Dr. Spencer Braun RBC 5.24 106/ul Normal 4.20-5.40 [facility] Comment on above: Performed By: #### C BC #### [facility] [address] [place] [address] Dr. Spencer Braun WBC 8.2 103/ul Normal 4.0-11.0 [facility] Comment on above: Performed By: #### C BC #### [facility] [address] [place], [place] [address] Dr. Spencer Braun FREE T3on 04-30-2022 FREE T3 2.98 pg/mlL Normal 2.18-3.98 [facility] Comment on above: Performed By: #### L IPID, TSH, T4, FT3, CMP ####[facility] [address] [id number] Braun GLYCOHEMOGLOBIN A1Con 2021 ADA RECOMMENDATION SEE BELOW Normal [facility] Comment on above: Result Comment: ADA RECOMMENDED LIMIT 4.0 - 6.0 ADA THERAPEUTIC TARGET < 7.0 ACTION SUGGESTED > 7.0 Performed By: #### A 1C ####[facility] [address] [address]DrManish Braun Glucose [Mass/Vol] 134 mg/dL Normal [facility] Comment on above: Performed By: #### A 1C ####[facility] [address] [address]DrManish Braun HbA1c (Bld) [Mass fraction] 6.3 % Critically high 4.5-6.2 [facility] Comment on above: Performed By: #### A 1C ####[facility] [address] [address]Dr. Spencer Braun LIPID PROFILEon 04-30-2022 CHOL-HDL RATIO NORM SEE BELOW Normal [facility] Comment on above: Result Comment: 3.3 - 4.4 LOW RISK 4.4 - 7.1 AVERAGE RISK 7.1 - 11.0 MODERATE RISK >11.0 HIGH RISK Performed By: #### L IPID, TSH, T4, FT3, CMP ####[facility] [address] [id number] Braun Cholesterol [Mass/Vol] 177 mg/dL Normal <=200 [facility] Comment on above: Performed By: #### L IPID, TSH, T4, FT3, CMP ####[facility] [address] [id number] Braun Cholesterol in HDL [Mass/Vol] 56 mg/dL Normal 40-60 [facility] Comment on above: Performed By: #### L IPID, TSH, T4, FT3, CMP ####[facility] [address] [address]Dr. Spencer Braun Cholesterol in LDL [Mass/Vol] 97.8 mg/dL Normal [facility] Comment on above: Performed By: #### L IPID, TSH, T4, FT3, CMP ####[facility] [address] [address]Dr. Spencer Braun Cholesterol.total/Ch olesterol in HDL [Mass ratio] 3.2 {ratio} Normal [facility] Comment on above: Performed By: #### L IPID, TSH, T4, FT3, CMP ####[facility] [address] [place], [place] [address]Dr. Spencer Braun HDL NORMAL > or = 60 mg/dl - LOW CARDIOVASCULAR RISK <40 mg/dl - HIGH CARDIOVASCULAR RISK Normal [facility] Comment on above: Performed By: #### L IPID, TSH, T4, FT3, CMP ####[facility] [address] [place], [place] [address]Dr. Spencer Braun LDL CALC NORMAL SEE BELOW Normal [facility] Comment on above: Result Comment: <100 mg/dl OPTIMAL 100 - 129 mg/dl NEAR OR ABOVE OPTIMAL 130 - 159 mg/dl BORDERLINE HIGH 160 - 189 mg/dl HIGH >190 mg/dl VERY HIGH Performed By: #### L IPID, TSH, T4, FT3, CMP ####[facility] [address] [address]Dr. Spencer Braun Triglyceride [Mass/Vol] 116 mg/dL Normal <=150 [facility] Comment on above: Performed By: #### L IPID, TSH, T4, FT3, CMP ####[facility] [address] [place], [place] [address]Dr. Spencer Braun VLDL CALC 23.2 mg/dL Normal [facility] Comment on above: Performed By: #### L IPID, TSH, T4, FT3, CMP ####[facility] [address] [address]Dr. Spencer Braun PROF 14(COMP METB)on 022 Albumin [Mass/Vol] 3.8 g/dL Normal 3.4-5.0 [facility] Comment on above: Performed By: #### L IPID, TSH, T4, FT3, CMP ####[facility] [address] [address]Dr. Spencer Braun Albumin/Globulin [Mass ratio] 0.9 {ratio} Normal [facility] Comment on above: Performed By: #### L IPID, TSH, T4, FT3, CMP ####[facility] [address] [address]Dr. Spencer Braun ALP [Catalytic activity/Vol] 143 U/L Critically high 46-116 [facility] Comment on above: Performed By: #### L IPID, TSH, T4, FT3, CMP ####[facility] [address] [place], [place] [address]Dr. Spencer Braun ALT [Catalytic activity/Vol] 19 U/L Normal 14-59 [facility] Comment on above: Performed By: #### L IPID, TSH, T4, FT3, CMP ####[facility] [address] [address]Dr. Spencer Braun Anion gap [Moles/Vol] 12.1 mmol/L Normal [facility] Comment on above: Performed By: #### L IPID, TSH, T4, FT3, CMP ####[facility] [address] [place], [place] [address]Dr. Spencer Braun AST [Catalytic activity/Vol] 17 U/L Normal 15-37 [facility] Comment on above: Performed By: #### L IPID, TSH, T4, FT3, CMP ####[facility] [address] [place], [place] [address]Dr. Spencer Braun Bilirubin [Mass/Vol] 0.3 mg/dL Normal 0.2-1.0 [facility] Comment on above: Performed By: #### L IPID, TSH, T4, FT3, CMP ####[facility] [address] [address]Dr. Spencer Braun Calcium [Mass/Vol] 9.5 mg/dL Normal 8.5-10.[address] [facility] Comment on above: Performed By: #### L IPID, TSH, T4, FT3, CMP ####[facility] [address] [address]Dr. Spencer Braun Chloride [Moles/Vol] 102 mmol/L Normal 98-107 [facility] Comment on above: Performed By: #### L IPID, TSH, T4, FT3, CMP ####[facility] [address] [address]Dr. Spencer Braun CO2 [Moles/Vol] 32.6 mmol/L Critically high 21.0-32.0 [facility] Comment on above: Performed By: #### L IPID, TSH, T4, FT3, CMP ####[facility] [address] [place], [place] [address]Dr. Spencer Braun Creatinine [Mass/Vol] 0.69 mg/dL Normal 0.55-1.02 [facility] Comment on above: Performed By: #### L IPID, TSH, T4, FT3, CMP ####[facility] [address] [place], [place] [address]Dr. Spencer Braun EGFR-AF GREEK >60 Normal >=60 [facility] Comment on above: Performed By: #### L IPID, TSH, T4, FT3, CMP ####[facility] [address] [place], [place] [address]Dr. Spencer Braun EGFR-NON AF GREEK >60 Normal >=60 [facility] Comment on above: Performed By: #### L IPID, TSH, T4, FT3, CMP ####[facility] [address] [place], [place] [address]Dr. Spencer Braun Globulin (S) [Mass/Vol] 4.1 g/dL Normal [facility] Comment on above: Performed By: #### L IPID, TSH, T4, FT3, CMP ####[facility] [address] [address]Dr. Spencer Braun Glucose [Mass/Vol] 108 mg/dL Critically high 74-106 [facility] Comment on above: Performed By: #### L IPID, TSH, T4, FT3, CMP ####[facility] [address] [place], [place] [address]Dr. Spencer Braun Potassium [Moles/Vol] 4.7 mmol/L Normal 3.5-5.1 [facility] Comment on above: Performed By: #### L IPID, TSH, T4, FT3, CMP ####[facility] [address] [place], [place] [address]Dr. Spencer Braun Protein [Mass/Vol] 7.9 g/dL Normal 6.4-8.[address] [facility] Comment on above: Performed By: #### L IPID, TSH, T4, FT3, CMP ####[facility] [address] [place], [place] [address]Dr. Spencer Braun Sodium [Moles/Vol] 142 mmol/L Normal 136-[address] [facility] Comment on above: Performed By: #### L IPID, TSH, T4, FT3, CMP ####[facility] [address] [place], [place] [address]Dr. Spencer Braun Urea nitrogen [Mass/Vol] 19.0 mg/dL Critically high 7.0-18.0 [facility] Comment on above: Performed By: #### L IPID, TSH, T4, FT3, CMP ####[facility] [address] [place], [place] [address]Dr. Spencer Braun Urea nitrogen/Creatinine [Mass ratio] 27.5 mg/mg Normal [facility] Comment on above: Performed By: #### L IPID, TSH, T4, FT3, CMP ####[facility] [address] [place], [place] [address]Dr. Spencer Braun T4on 04-30-2022 T4 [Mass/Vol] 8.30 ug/dL Normal 4.80-13.90 [facility] Comment on above: Performed By: #### L IPID, TSH, T4, FT3, CMP ####[facility] [address] [place], [place] [address]GtManish Braun TSHon 04-30-2022 TSH 1.777 uIU/mL Normal 0.358-3.740 [facility] Comment on above: Performed By: #### L IPID, TSH, T4, FT3, CMP ####[facility] [address] [place], [place] [address]XyManish Braun VITAMIN D 25 OHon 04-30-2022 VIT D 25-OH 72.1 ng/mL Normal [facility] Comment on above: Performed By: #### V ITAD #### [facility] [address] [address] [address] Spencer Braun VIT D RANGES SEE BELOW Normal [facility] Comment on above: Result Comment: <20 ng/mL Vit D deficient 20 - <30 ng/mL Vit D insufficient 30 - 100 ng/mL Vit D sufficient >100 ng/mL Potential Toxicity Performed By: #### V ITAD #### [facility] [address] [place], [place] [address] Dr. Spencer Braun MG MAMM SCREEN 3D AWAIS CADon 02-16-2022 MG MAMM SCREEN 3D AWAIS CAD Patient: BETH STARKEY Exam Date: 02/16/2022 : 1940 Gender:F Ordering : DR MARCK TATE . Admission #: [id number] Family : Order #: [id number] CLICK HERE TO VIEW EXAM RADIOLOGY REPORT [...] prostate cancer at age 71. LOCATION: [facility] BREAST COMPOSITION: Heterogeneously dense,which may obscure [...] MD on 02/17/2022 at 07:39 Normal [facility] Vital Signs Date Time Vital Sign Value Performing Clinician Tony jenkins 09-28-2024 14:15-0400 Measurement/Vitals Comment Unable to obtain; Telephone visit. Nati Petty [facility] 08-15-2024 14:13-0400 Body mass index (BMI) [Ratio] 29.63 kg/m2 Timo Ihsan DO Work Phone: [facility] 08-15-2024 14:13-0400 Body weight 71.12 kg Timo Ihsan DO Work Phone: [facility] 08-15-2024 14:13-0400 Diastolic blood pressure 80 mm[Hg] Timo Ihsan DO Work Phone: [facility] 08-15-2024 14:13-0400 Systolic blood pressure 114 mm[Hg] Timo Ihsan DO Work Phone: [facility] 07-17-2024 15:08-0500 Body mass index (BMI) [Ratio] 29.44 kg/m2 Timo Ihsan DO Work Phone: [facility] 07-17-2024 15:08-0500 Body weight 70.67 kg Timo Ihsan DO Work Phone: [facility] 07-17-2024 15:08-0500 Diastolic blood pressure 70 mm[Hg] Timo Ihsan DO Work Phone: [facility] 07-17-2024 15:08-0500 Systolic blood pressure 120 mm[Hg] Timo Ihsan DO Work Phone: [facility] 12-16-2023 15:18-0400 Diastolic blood pressure 68 mm[Hg] Tam Mauricionus [facility] 12-16-2023 15:18-0400 Systolic blood pressure 118 mm[Hg] Tam Mauricionus [facility] 05-12-2023 10:13-0500 Diastolic blood pressure 72 mm[Hg] Sha Barrerasilke [facility] 05-12-2023 10:13-0500 Heart rate 94 /min Sha Vallejo [facility] 05-12-2023 10:13-0500 SaO2% (BldA) [Mass fraction] 90 % Sha Rodpippasilke [facility] 05-12-2023 10:13-0500 Systolic blood pressure 130 mm[Hg] Sha Barrerasilke [facility] 05-03-2023 12:24-0500 Diastolic blood pressure 59 mm[Hg] Jena Hicks MD Work Phone: [facility] 05-03-2023 12:24-0500 Heart rate 86 /min Jena Hicks MD Work Phone: [facility] 05-03-2023 12:24-0500 Systolic blood pressure 103 mm[Hg] Jena Hicks MD Work Phone: [facility] 05-03-2023 12:14-0500 Body height 152.4 cm Jena Hicks MD Work Phone: [facility] 05-03-2023 12:14-0500 Body temperature 98.29 [degF] Jena Hicks MD Work Phone: [facility] 05-03-2023 12:14-0500 Body weight 65.82 kg Jena Hicks MD Work Phone: [facility] 05-03-2023 12:14-0500 Respiratory rate 16 /min Jena Hicks MD Work Phone: [facility] 05-03-2023 12:14-0500 SaO2% (BldA) [Mass fraction] 93 % Jena Hicks MD Work Phone: [facility] 09-06-2022 09:39-0400 Blood Pressure Location Dayron Jorgensen [facility] 09-06-2022 09:39-0400 Diastolic blood pressure 81 mm[Hg] Dayron Davidsonan [facility] 09-06-2022 09:39-0400 Heart rate 103 /min Dayron Davidsonan [facility] 09-06-2022 09:39-0400 SaO2% (BldA) [Mass fraction] 90 % Dayron Davidsonan [facility] 09-06-2022 09:39-0400 Systolic blood pressure 126 mm[Hg] [facility] Davidson[facility] Encounters Encounter Date Encounter Type Care Provider Facility Start: 12-07-2024 End: 12-07-2024 ambulatory XXXX NONE Facility:[facility] Start: 09-28-2024 End: 09-28-2024 Patient encounter procedure Nati Petty [facility] Start: 09-28-2024 End: 09-28-2024 ambulatory PA-C Nati Petty Facility:[facility] Start: 08-16-2024 End: 09-28-2024 Patient encounter procedure Jus Del Castillo [facility] Start: 08-15-2024 End: 08-15-2024 Bamboo flowsheet [...] Start: 07-20-2024 End: 07-20-2024 ambulatory XXXX NONE Facility:[facility] Start: 07-17-2024 End: 07-17-2024 Office outpatient visit [...] Patient encounter procedure Tam Vallejo [facility] Start: 01-20-2024 End: 01-20-2024 ambulatory [facility] Start: 01-09-2024 End: 01-10-2024 ambulatory [facility] Start: 12-16-2023 End: 12-17-2023 Pre-admission assessment Tam Vallejo [facility] Start: 12-16-2023 End: 12-16-2023 ambulatory XXXX NONE Facility:[facility] Start: 11-09-2023 End: 11-09-2023 ambulatory TIMO CHAMPAGNE Not Available Start: 05-12-2023 End: 05-12-2023 Patient encounter procedure Sha Vallejo [facility] Start: 05-04-2023 Orders Only Jena Hicks MD Work Phone: [facility] Comment on above: 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); Bilateral carotid artery stenosis; Other disorders of arteries, arterioles and capillaries in diseases classified elsewhere (HCC) Start: 05-03-2023 End: 05-03-2023 ambulatory JENA HICKS Facility:[facility] Start: 05-03-2023 End: 05-03-2023 Office outpatient visit 25 minutes Jena Hicks MD Work Phone: [facility] Comment on above: 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) Start: 04-26-2023 Orders Only Jena Hicks MD Work Phone: [facility] Comment on above: Chest pain, unspecif ied type (Primary Dx) Start: 04-25-2023 Telephone encounter No Pcp [facility] Comment on above: Appointment Start: 04-22-2023 Telephone encounter No One (Historic al) Referring Physician Comment on above: External Referrals/r esources Start: 03-23-2023 End: 03-23-2023 Patient encounter procedure Sha Vallejo [facility] Start: 01-20-2023 End: 01-20-2023 Patient encounter procedure Sha Vallejo [facility] Start: 09-24-2022 End: 09-24-2022 Patient encounter procedure Dayron Jorgensen [facility] Start: 09-06-2022 End: 09-06-2022 Patient encounter procedure Dayron Jorgensen [facility] Start: 08-02-2022 End: 08-03-[address] [...] DTaP,Tdap,Td Vaccine (2 - Td or Tdap) [facility] Start: 08-15-2024 End: 08-15-2024 Patient encounter procedure 08/15/2024 1:50 PM EDT Office Visit [facility] [address] [place] [address] Timo Champagne, [address], [place] [address] Arrived [facility] Comment on above: Arrived Start: 08-07-2024 End: 08-07-2024 Professional / ancillary services management 08/07/2024 2:30 PM EDT Ancillary Procedure [facility] [address] [place] [address] [facility] Start: 07-17-2024 End: 07-17-2024 Patient encounter procedure 07/17/2024 2:40 PM EST Office Visit [facility] [address] [place] [address] Timo Champagne, DO [address] [place] [address] [place] [address] Arrived [facility] Comment on above: Arrived Start: 07-17-2024 End: 07-17-2025 US Pelvis US Pelvis w/ TV Imaging Routine Cyst of left ovary Expected: 07/17/2024, Expires: 07/17/2025 [facility] Work Phone: Comment on above: Expected: 07/17/2024 , Expires: 07/17/2025 Start: 01-22-2024 Influenza vaccination Influenza Vacc ine (#1) [facility] Start: 01-21-2023 Influenza vaccination Influenza Vacc ine (#1) [facility] Start: 05-23-2022 Advance Directive Discussion Advance Directive Discussion [facility] Start: 05-23-2022 Depression Assessment Depression Ass essment [facility] Start: 03-23-2018 Pneumococcal Vaccine : 65+ Years (2 of 2 - PPSV23 or PCV20) Pneumococcal Vaccine: 65+ Years (2 of 2 - PPSV23 or PCV20) [facility] Start: 05-18-2017 Pneumococcal Vaccine : 65+ (2 - PPSV23 or PCV20) Pneumococcal Vaccine: 65+ (2 - PPSV23 or PCV20) [facility] Start: 2006 Bone Density Screening Bone Density Screening [facility] Start: 2006 Pneumococcal Vaccine : 65+ (1 - PCV) Pneumococcal Vaccine: 65+ (1 - PCV) [facility] Start: 2006 Screening for osteoporosis Bone Density Screening [facility] Start: 2001 RSV Vaccine (1 - 1-d ose 60+ series) RSV Vaccine (1 - 1-dose 60+ series) [facility] Start: 1991 Shingrix Vaccine (1 of 2) Shingrix Vaccine (1 of 2) [facility] Start: 1986 Diabetes Screening Diabetes Screenin g [facility] Start: 1940 Covid-19 Vaccine (#1) Covid-19 Vacci ne (#1) [facility] End: 05-25-2024 Ct angio abd&plvis cntrst mtrl w/wo cntrst img CTA ABD/PEL WO/W IVCON Radiology Routine Chest pain, unspecified type 1 Occurrences starting 04/26/2023 until 05/25/2024 [facility] Work Phone: Comment on above: 1 Occurrences starti ng 04/26/2023 until 05/25/2024 End: 06-02-2024 Ct angio abd&plvis cntrst mtrl w/wo cntrst img CTA ABD/PEL WO/W IVCON Radiology Routine 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 Occurrences starting 05/04/2023 until 06/02/2024 [facility] Work Phone: Comment on above: 1 Occurrences starti ng 05/04/2023 until 06/02/2024 End: 05-25-2024 Ct angiography chest w/contrast/noncontrast CTA CHEST (NONGATED) WO/W IVCON Radiology Routine Chest pain, unspecified type 1 Occurrences starting 04/26/2023 until 05/25/2024 [facility] Work Phone: Comment on above: 1 Occurrences starti ng 04/26/2023 until 05/25/2024 End: 06-02-2024 Ct angiography chest w/contrast/noncontrast CTA CHEST (NONGATED) WO/W IVCON Radiology Routine 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 Occurrences starting 05/04/2023 until 06/02/2024 [facility] Work Phone: Comment on above: 1 Occurrences starti ng 05/04/2023 until 06/02/2024 End: 05-04-2024 PVR ANK/HILL/TOE AWAIS [facility]AS LAB PVR ANK/HILL/TOE [facility] Vascular Lab Routine 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) Other disorders of arteries, arterioles and capillaries in diseases classified elsewhere (HCC) 1 Occurrences starting 05/04/2023 until 05/04/2024 [facility] Work Phone: Comment on above: 1 Occurrences starti ng 05/04/2023 until 05/04/2024 End: 05-04-2024 US CAROTID ARTERIES [facility] US CAROTID ARTERIES [facility] Vascular Lab Routine Bilateral carotid artery stenosis 1 Occurrences starting 05/04/2023 until 05/04/2024 [facility] Work Phone: Comment on above: 1 Occurrences starti ng 05/04/2023 until 05/04/2024 [facility] Immunizations Immunization Date Immunization Notes Care Provider Kay bennett 01-20-2024 tetanus toxoid, redu gene diphtheria toxoid, and acellular pertussis vaccine, adsorbed Jus Magdalene [facility] 04-26-2023 influenza virus vaccine, unspecified formulation Timo Champagne DO Work Phone: [facility] 12-16-2021 SARS-CoV-2 mRNA (fhapphyshzi-tide-dmcch se) vaccine Jus Magdalene [facility] Comment on above: Result Comment: 2024: [id number] 04-07-2021 SARS-CoV-2 (COVID-19 ) mRNA BNT-162b2 vax Jus Magdalene [facility] Comment on above: Result Comment: 2024: [id number] 09-29-2020 SARS-CoV-2 (COVID-19 ) mRNA BNT-162b2 vax Jus Magdalene [facility] 09-08-2020 SARS-CoV-2 (COVID-19 ) mRNA BNT-162b2 vax Jus Magdalene [facility] 04-23-2020 influenza virus vaccine, unspecified formulation Jus Magdalene [facility] 07-04-2019 tetanus toxoid, redu gene diphtheria toxoid, and acellular pertussis vaccine, adsorbed Jus Magdalene [facility] 03-23-2017 pneumococcal conjuga te vaccine, 13 valent Jus Magdalene [facility] 03-06-2017 influenza virus vaccine, unspecified formulation Jus Del Castillo [facility] Payers Date Payer Category Payer [employer] others) [id number] 2018 [employer] others) [id number] 2006 Medicare [id number] 1998 () [id number] 1959 [employer] ( and others) [id number] 1959 Medicare [id number] 1940 Unknown [id number] 2.840.1.245930.3.579. 2.593 1941 Unknown [id number] 2.16840.1.890924.3.579. 2.593 1941 Unknown [id number] 2.16.840.1.962428.3.579. 2.593 1941 Unknown [id number] 2.16.840.1.677638.3.579. 2.593 1941 Unknown [id number] 2.16.840.1.664865.3.579. 2.593 1941 Unknown [id number] 2.16.840.1.611079.3.579. 2.1259 1941 Unknown [id number] 2.16.840.1.855453.3.579. 2.1259 1941 Unknown [id number] 2.16.840.1.400808.3.579. 2.1259 1941 Unknown [id number] 2.16.840.1.002816.3.579. 2.1259 1941 Unknown [id number] 2.16.840.1.000706.3.579. 2.727 1941 Unknown [id number] 2.16.840.1.576294.3.579. 2.727 1941 Unknown [id number] 2.16.840.1.256925.3.579. 2.727 1941 Unknown [id number] 2.16.840.1.596299.3.579. 2.727 1941 Unknown [id number] 2.16.840.1.121141.3.579. 2.727 Unknown Social History Date Type Detail Facility Start: 09-06-2022 End: 09-28-2024 Tobacco smoking status Heavy tobacco smoker (finding) [facility] Start: 05-03-2023 Sex Assigned At Female F [facility] smoking consumption unknown [facility] Start: 1940 Sex Assigned At Not on file [facility] Start: 05-23-1956 Tobacco smoking stat [facility] Smokes tobacco daily [facility] Start: 05-23-1956 History of tobacco use Cigarette Smo ker [facility] Start: 05-03-2023 Cigarettes smoked current (pack per day) - Reported 1.5 [facility] Start: 05-03-2023 Tobacco use and exposure Smoke less tobacco non-user [facility] Start: 05-03-2023 Alcohol intake Current drinke r of alcohol (finding) [facility] National Score (1-10 0), lower number is lower risk 87 [facility] Start: 05-03-2023 Alcohol Comment [facility] Sexual Orientation [facility] Start: 08-17-2022 Sex Female (finding) [facility] Functional Status Date Assessment Result Facility 09-28-2024 Functional Status N/A [facility] 12-16-2023 Functional Status N/A [facility] 05-12-2023 Functional Status N/A [facility] 09-06-[address] [facility] Clinical Notes 03-22-2023 to 08-15-2024 Patrizia [...] nursing note reviewed. Exam conducted with a elevator erector present. Vitals: Estimated body mass index is [...] documented in this encounter [facility] 07-17-2024 History of Present illness Narrative [...] nursing note reviewed. Exam conducted with a elevator erector present. 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 [facility] 01-09-[address] Office Cardiology Clinic Note Reason for cardiology consult: Dyspnea on exertion, prior history of CAD Chief Complaint: Dyspnea on exertion HPI: Beth Starkey is a 83 y.o. 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 [facility] 05-26-2023 Note [facility] ([id number]) 1940 F Date Time Provider Department 05/26/23 [...] and brochure sent Lung Nodule Program Location: [place] Allergies As of Date: 05/26/2023 (No Known [...] Encounter Status:Closed by EVANGELINA BURNETT on 05/26/23 [facility] 05-26-2023 Note HNO ID: [id number] Author: ?, ?, ? Service: ? Author [...] [place] 05-18-2023 Note Patient Outreach ([facility]) BETH STARKEY ([id number]) 1940 F Date Time Provider Department 05/18/23 SOFIA BELLO [facility] During your visit today, we recorded the following information about you: Sofia Bello, REGISTRAR [employer].[facility] 05/18/2023 11:12 AM Signed Incidental Lung Nodule Enrollment Outreach attempt: 1st Attempt Outreach status: Complete Enrolled in Lung Nodule program: Referred Lung Nodule outreach: No outreach - Very small nodule, letter and brochure sent Lung Nodule Program Location: [place] Allergies As of Date: 05/18/2023 (No Known [...] Encounter Status:Closed by SOFIA BELLO on 05/18/23 [facility] 05-18-2023 Note HNO ID: [id number] Author: Sofia Bello, CHELSEA[employer] Service: ? Author Type: Nurse Practitioner Type: Progress Notes Filed: 05/18/2023 11:12 AM Note Text: Incidental Lung Nodule Enrollment Outreach attempt: 1st Attempt Outreach status: Complete Enrolled in Lung Nodule program: Referred Lung Nodule outreach: No outreach - Very small nodule, letter and brochure sent Lung Nodule Program Location: [facility] 05-03-2023 Note HNO ID: [id number] Author: Nadine Cummins RN Service: Radiology Author [...] DATE: May 03, 2023 TIME: 1:00 PM [facility] 05-03-2023 Note HNO ID: [id number] Author: Kandy Aragon RT(R) Service: Radiology Author [...] RT Tess(R) May 03, 2023 1:19 PM [facility] 05-03-2023 History and physical note Heart , Vascular and Thoracic [place] DEPARTMENT OF VASCULAR SURGERY OUTPATIENT VISIT DATE [...] 4 - Moderate documented in this encounter [facility] 04-25-2023 Miscellaneous Notes Reason for call: Ms Starkey called,and she would like to schedule an appointment with vascular surgery Referred by Dr Judit [facility] and cell number: [phone] Diagnosis: AAA Kind Regards Med documented in this encounter [facility] 04-22-2023 Miscellaneous Notes Patient: Beth Starkey Date of : 1940 Patient phone number: [phone] Referring Provider for the encounter: Marck Tate MD Requesting Provider: N/A Reason for requesting visit (RFV/signs and symptoms/diagnosis): Sent Telephone Encounter - updated tracking. Person calling: caregiver: Patrizia Return call to: self Medical Records/Insurance Card scanned into Epic: Yes Comments: N/A documented in this encounter [facility] 03-23-2023 Evaluation + Plan note Diagnostic Tests PendingCreatinine 03/23/23 Future Scheduled TestsCTA Abd Aorto-bilat/ iliofemoral runoff 03/22/23 [facility] 03-22-2023 Evaluation + Plan note Future Scheduled TestsCTA Abd Aorto-bilat/ iliofemoral runoff 03/22/23 [facility] Evaluation + Plan note Future Appointments Appointment Date:10/11/2022 10:00:00 AM Scheduled Provider:Dayron Jorgensen MD Location:[facility] Appointment Type:Vascular Follow Up ([facility]) Future Scheduled TestsCTA Abdomen and Pelvis 09/06/22CTA Chest 09/06/22 [facility] Evaluation + Plan note Future Appointments Appointment Date:10/11/2022 10:00:00 AM Scheduled Provider:[facility] Follow Up ([facility]) [facility] Evaluation + Plan note Future Scheduled TestsCTA Abd Aorto-bilat/ iliofemoral runoff 03/22/23 [facility] Evaluation + Plan note Future Appointments Appointment Date:06/18/2024 09:45:00 AM Scheduled Provider:Tam Vallejo [facility] Appointment Type:Cardiology Follow Up ([facility]) Future Scheduled TestsCTA Abd Aorto-bilat/ iliofemoral runoff 03/22/23 [facility] Evaluation + Plan note Future Appointments Appointment Date:07/20/2024 10:00:00 AM Scheduled Provider:Tam Vallejo MD [facility] Appointment Type:Cardiology Follow Up ([facility]) Future Scheduled TestsLipid Panel 12/19/23NM Myocardial Spect Rest/Stress 1 Day 12/21/23Echo Transthoracic Complete 12/21/23CTA Abd Aorto-bilat/ iliofemoral runoff 03/22/23 [facility] Evaluation + Plan note Future Appointments Appointment Date:12/07/2024 03:00:00 PM Scheduled Provider:Jus Del Castillo MD Location:.Cardiology Clinic Street Appointment Type:Cardiology Follow Up ([facility]) Future Scheduled TestsLipid Panel 07/24/24NM Myocardial Spect Rest/Stress 1 Day 12/21/23Echo Transthoracic Complete 12/21/23CTA Abd Aorto-bilat/ iliofemoral runoff 09/17/24 [facility] Evaluation note Diagnosis Chest pain, unspecified type- Primary [facility] Diagnosis 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 [facility] Diagnosis 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 Bilateral carotid artery stenosis Occlusion and stenosis of carotid artery without mention of cerebral infarction Other disorders of arteries, arterioles and capillaries in diseases classified elsewhere ([facility]) [facility] Diagnosis Cyst of left ovary Other and unspecified ovarian cyst documented in this encounter [facility] Healthcare[facility]* Diagnosis Encounter to discuss test results Other specified counseling Cyst of left ovary Other and unspecified ovarian cyst documented in this encounter [facility] HealthcareHospital course Narrative No data available for this section [facility] No data available for this section [facility] No data available for this section [facility] for [facility] (narrative)* Outpatient Procedure (Routine) - Authorized Specialty Diagnoses / Procedures Referred By Manjula t Referred To Contact [facility] [place] Diagnoses 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) Other disorders of arteries, arterioles and capillaries in diseases classified elsewhere ([facility]) Procedures PVR ANK/HILL/TOE AWAIS VAS LAB NON-INVAS PHYSIOLOGIC STD EXTREMITY ART 2 LEVEL Jena Hicks MD [address] [place] [address] [facility] [place] [address] [place] [address] Referral ID Status Reason Start Date Expiration Date Visits Requested Visits Authorized [id number] Authorized Auto-Generat ed Referral 3 05/03/2024 1 1 * MRI/CT (Routine) - Authorized Specialty Diagnoses / Procedures Referred By Marcac t Referred To Contact CT IMAGING Diagnoses 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) Procedures CTA ABD/PEL WO/W IVCON CT ANGIO ABD&PLVIS CNTRST MTRL W/WO CNTRST Jena Todd MD [address] [place] [address] Ct Imaging [place] [address] Referral ID Status Reason Start Date Expiration Date Visits Requested Visits Authorized [id number] Authorized Auto-Generat ed Referral 3 06/02/2024 1 1 * MRI/CT (Routine) - Authorized Specialty Diagnoses / Procedures Referred By Manjula t Referred To Contact CT IMAGING Diagnoses 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) Procedures CTA CHEST (NONGATED) WO/W IVCON CT ANGIOGRAPHY CHEST W/CONTRAST/NONCONTRAST Jena Hicks MD [address] [place] [address] [address] [facility] [place] [address] Referral ID Status Reason Start Date Expiration Date Visits Requested Visits Authorized [id number] Authorized Auto-Generat ed Referral 3 06/02/2024 1 1 * Outpatient Procedure (Routine) - Authorized Specialty Diagnoses / Procedures [facility] Diagnoses Bilateral carotid artery stenosis Procedures US CAROTID ARTERIES AWAIS VAS LAB DUPLEX SCAN EXTRACRANIAL [place] [address] [place] [address] [facility] [place] [address] [place] [address] Referral ID Status Reason Start Date Expiration Date Visits Requested Visits Authorized [id number] Authorized Auto-Generat ed Referral 12/1305/03/2024 1 1 [facility] Summary Purpose Family History No [...] CT ANGIO ABD&PLVIS CNTRST MTRL W[facility] J[facility] Hicks MD [address] [place] [address] [address] Imaging [place] [address] Referral ID Status Reason Start Date Expiration Date Visits Requested Visits Authorized [id number] Authorized Auto-Generat ed Referral 04/26/2023 05/25/2024 1 1 Specialty Diagnoses / Procedures Referred By Contac t Referred To Contact CT IMAGING Diagnoses Chest pain, unspecified type Procedures CTA CHEST (NONGATED) WO/W IVCON CT ANGIOGRAPHY CHEST W/CONTRAST/NONCONTRAST Jena Hicks MD [address] [place] [address] [address] [facility] [place] [address] Referral ID Status Reason Start Date Expiration Date Visits Requested Visits Authorized [id number] Authorized Auto-Generat ed Referral 04/26/2023 05/25/2024 1 1 Additional Source Comments INFORMATION SOURCE (unrecogn ized section and content) DATE CREATED AUTHOR 11/14/2017 [facility] DATE CREATED AUTHOR AUTHOR'S ORGANIZ ATION 08/09/2022 [facility] DATE CREATED AUTHOR AUTHOR'S ORGANIZ ATION 05/27/2023 [facility] DATE CREATED AUTHOR AUTHOR'S ORGANIZ ATION 01/22/2024 [facility] DATE CREATED AUTHOR AUTHOR'S ORGANIZ ATION 08/16/2024 [facility] EPIC DATE CREATED AUTHOR AUTHOR'S ORGANIZ ATION 12/11/2024 [facility] Patient Care team informatio n (unrecognized section and content) 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 Installation 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 Relationship Specialty Start Date End Date Marck Tate MD [address] [facility] [place] [address] Family Medicine 04/22/23 Solar Installation Technician Relationship Specialty Start Date End Date Marck Tate MD [address] [facility] [place] [address] Family Medicine 04/22/23 Solar Installation Technician Relationship Specialty Start Date End Date Marck Tate MD [address] [facility] [place] [address] Family Medicine 04/22/23 Solar Installation Technician Relationship Specialty Start Date End Date Marck Tate MD [address] [facility] [place] [address] Family Medicine 04/22/23 Solar Installation Technician Relationship Specialty Start Date End Date Marck Tate MD [address] [facility] [place] [address] PCP - General Family Medicine 05/30/23 Solar Installation Technician Relationship Specialty Start Date End Date Marck Tate MD [address] [facility] [place] [address] PCP - General Family Medicine 05/30/23 Solar Installation Technician Relationship Specialty Start Date End Date Marck Tate MD [address] [place] [address] PCP - General Family Medicine 05/30/23 Solar Installation Technician Relationship Specialty Start Date End Date Marck Tate MD [address] [place] [address] PCP - General Family Medicine 05/30/23 Source Comments (unrecognize d section and content) In the event this informatio n is protected by the Federal Confidentiality of Alcohol and Drug Abuse Patient Records regulations: The Federal rules restrict any use of the information to criminally investigate or prosecute any alcohol or drug abuse patient.[facility] the event this information is protected by the Federal Confidentiality of Alcohol and Drug Abuse Patient Records regulations: The Federal rules restrict any use of the information to criminally investigate or prosecute any alcohol or drug abuse patient.[facility] the event this information is protected by the Federal Confidentiality of Alcohol and Drug Abuse Patient Records regulations: The Federal rules restrict any use of the information to criminally investigate or prosecute any alcohol or drug abuse patient.[facility] the event this information is protected by the Federal Confidentiality of Alcohol and Drug Abuse Patient Records regulations: The Federal rules restrict any use of the information to criminally investigate or prosecute any alcohol or drug abuse patient.[facility] the event this information is protected by the Federal Confidentiality of Alcohol and Drug Abuse Patient Records regulations: The Federal rules restrict any use of the information to criminally investigate or prosecute any alcohol or drug abuse patient.[facility] Reason for Visit (unrecogniz ed section [...] BE BASED ON THE PRIMARY CLINICAL RECORDS. [facility] [employer] [facility]. provides no warranty or guarantee of the accuracy or completeness of information in this document.
--- OUTSIDE RECORDS SUMMARY | 2025-02-07 15:41 | XMS_ITS | CCD ---
Author Organization [facility] Care Team Providers Care Photogrammetric Engineer Name Role Phone PHYSICIAN, DEFAULT Unavailable Unavailable PHYSICIAN, DEFAULT Unavailable Unavailable MARCK TATE Unavailable Unavailable HOY ., DR ACHARYA Admitting Unavailable HOY ., DR ACHARYA Attending Unavailable HOY ., DR ACHARYA Primary Care Unavailable HOY ., DR ACHARYA Consulting Unavailable [place], DR SANDOVAL Ferguson Consulting Unavailable HOY ., [...] Medication Allergies] Propensity to adverse reactions (disorder) [facility] Repository Medications Current Medications Medication Drug Class(es) Dates Sig (Normalized) Sig (Original) amLODIPine 2.5 mg oral tablet (12 sources) Dihydropyridine Calcium Channel Yessica Start: 07-20-2024 take 1 tablet by mouth once daily Norvasc 2.5 mg Tab 2.5 mg = 1 tab(s), Oral, Daily, # 90 tab(s), Refills(s) 0, [facility]: [id number], 152, cm, 07/20/24 10:08:00 EST, Height/Length Dosing, [...] Comment on above: Take 1 tablet by acty th every afternoon. ascorbic acid 500 mg [...] Daily, # 30 tab(s), Refills(s) 6, [id number], 152, cm, 12/16/23 15:27:00 EDT, Height/Length Dosing, 69.1, kg, 12/16/23 15:27:00 EDT, Weight Dosing Start Date: 12/19/23 Status: Ordered Quantity: 30.0 Unit: tab(s) Repeat number: 7 calcium carbonate (Tums) 250 mg ([place] 100 mg) chewable split tablet (6 sources) calcium carbonat e (Tums) 250 mg ([place] 100 mg) chewable split tablet Take 500 [...] Daily, # 90 tab(s), Refills(s) 0, [id number], 152, cm, 07/20/24 10:08:00 EST, Height/Length Dosing, [...] Daily, # 30 tab(s), Refills(s) 6, [id number], 152, cm, 12/16/23 15:27:00 EDT, Height/Length Dosing, 69.1, kg, 12/16/23 15:27:00 EDT, Weight Dosing Start Date: 12/19/23 Status: Ordered Quantity: 30.0 Unit: tab(s) Repeat number: 7 Start: 12-16-2023 take 1 tablet by caty th once daily metoprolol succinate 25 mg ER Tab 25 mg = 1 tab(s), Oral, Daily, # 30 tab(s), Refills(s) 6, [facility]acy: [facility] #[id number], 152, cm, 12/16/23 15:27:00 EDT, Height/Length Dosing, [...] disease (7 sources) Atherosclerotic heart disease of [place] coronary artery without angina pectoris; Translations: [Coronary [...] as patient had to be rescheduled from [place]. At last visit, patient saw Dr. Vallejo [...] -see outside records Assessment/Plan 1. CAD in [place] artery (I25.10: Atherosclerotic heart disease of [place] coronary artery without angina pectoris) The patient has history of CAD with prior PCI. She also had a recent stress test that was positive and considered high risk due to large reversible defect. However, patient refused heart cath when proposed by Dr. Vallejo last month last month. Again asked (more content not included)... Normal [facility] Comment on above: Result Comment: Elec [...] as patient had to be rescheduled from [place]. At last visit, patient saw Dr. Vallejo [...] -see outside records Assessment/Plan 1. CAD in [place] artery (I25.10: Atherosclerotic heart disease of [place] coronary artery without angina pectoris) The patient [...] with voice recognition artificial intelligence software, specifically myaNUMBER, FeedMagnet and or eBillme. Substitutions may have occurred due to the inherent limitations of voice recognition and artificial intelligence software. Follow-up No qualifying data available Problem List/Past Medical History Ongoing AAA (abdominal aortic aneurysm) CAD in [place] artery HTN (hypertension) Historical No qualifying data [...] mg= 1 (more content not included)... Normal [facility] Comment on above: Result Comment: Elec [...] II, MD, PHD at 09-Aug-2024 08:45:09 AM [facility] Normal Not Available Comment on above: [...] as indicated. [1] Assessment/Plan 1. CAD in [place] artery (I25.10: Atherosclerotic heart disease of [place] coronary artery without angina pectoris) Exertional dyspnea [...] A PONCE (more content not included)... Normal [facility] Comment on above: Result Comment: Elec tronically Signed By: Genevieve CURRIE, Tam Spain\.br\Date and Time Signed: 07/20/24 10:27 EST Office Visiton 01-20-2024 Follow-up visit [id number] Beth Starkey 1940 F Date Provider Department Center 01/20/2024 [id number] HOPE MONSE Delgado [facility] Family History Problem Relation Age of Onset Heart attack Father Diabetes Sister Coronary artery disease Brother Aneurysm Brother Diabetes Brother Family Status - Relation Status Age at Father Sister Brother Level of Service:94477 DE OFFICE/OUTPATIENT ESTABLISHED MOD MDM 30 MIN Reason for Visit and Comments: Hyperlipidemia [182] Hypertension [338235] - Pt had a abnormal stress. Patient used the restroom in the ED right before apt and had a fall. She denies lightheadedness/dizz iness and syncope. She denies hiting her head. Shortness of Breath [728605] Normal [facility] Office Visiton 01-09-2024 Follow-up visit [id number] Beth Starkey 1940 F Date Provider Department Center 01/09/2024 [id number]-EYYONU, SAMDANNIELLE MONSE [facility] Family History Problem Relation Age of Onset Heart attack Father Diabetes Sister Coronary artery disease Brother Aneurysm Brother Diabetes Brother Family Status - Relation Status Age at Father Sister Brother Level of Service:72237 DE OFFICE/OUTPATIENT NEW MODERATE MDM 45 MINUTES Reason for Visit and Comments: New Patient [632] - Pt complains of sob. Normal [facility] Heart and Vascular Office/Cl inic Noteon [...] aneurysm, without rupture, unspecified) 2. CAD in [place] artery (I25.10: Atherosclerotic heart disease of [place] coronary artery without angina pectoris) 3. HTN [...] CURRIE, Edinson Kuhn 09/24/2022 10:55 EDT Normal [facility] Comment on above: Result Comment: Elec tronically Signed By: Genevieve CURRIE, Tam Spain\.ede\Date and Time Signed: 12/16/23 15:48 EDT REILLYon 05-03-2023 CNDANIEL Office Visit (YURI) BETH STARKEY ([id number]) 1940 F Date Time Provider Department 05/03/23 12:00 PM JENA HICKS During your visit today, we recorded the following information about you: Temperature Pulse Respiration Blood pressure 98.3 degrees 86/minute 16/minute 103/59 Weight Height 65.8 kg 1.524 m Jena Hicks MD 05/03/2023 3:31 PM Signed [facility]ASCULAR SURGERY OUTPATIENT VISIT DATE [...] content not included)... Normal [facility] CTA ABD/PELV WO/W IVCONon CTA ABD/PELV WO/W IVCON * * *Final Report* * * DATE OF EXAM: May 03 2023 1:27PM [facility] 0467 - CTA ABD/PELV WO/W IVCON / [...] stable BONES: degenerative changes of the spine Tank Calibrator (topogram) images: No additional findings. IMPRESSION: * [...] not included)... Invalid Interpretation Code [facility] CTA CHEST (NONGATED) WO/W IV CONon 05-03-2023 CTA CHEST (NONGATED) WO/W IVCON * * *Final Report* * * DATE OF EXAM: May 03 2023 1:27PM [facility] 0124 - CTA CHEST (NONGATED) WO/W IVCON [...] stable BONES: degenerative changes of the spine Tank Calibrator (topogram) images: No additional findings. IMPRESSION: * [...] not included)... Invalid Interpretation Code [facility] HISTORY PHYSICALon HISTORY PHYSICAL HNO ID: [id number] Author: Jena Hicks MD Service: ? Author Type: Physician Type: HANDP Filed: 05/03/2023 3:31 PM Note Text: [facility]PART[facility] OF VASCULAR SURGERY OUTPATIENT VISIT DATE [...] EOM, pupils (more content not included)... Normal [facility] 04-25-2023 [facility] Telephone (PODCCP) BETH STARKEY ([id number]) 1940 F Date Time Provider Department 04/25/23 NO PCP PODCCP During your visit today, we recorded the following information about you: Med Quiros 04/25/2023 4:23 PM Signed Reason for call: Ms Starkey called,and she would like to schedule an appointment with vascular surgery Referred by Dr Judit [facility] and cell number: [phone] Diagnosis: AAA Kind Regards Med Allergies As of Date: 04/25/2023 (Not on File) Date Reviewed: Never Reviewed Reason for Visit: Appointment [186] Problem List As Of Date: 04/25/2023 (None) Encounter Status:Closed by MED QUIROS on 04/25/23 [facility] BETH ST[facility] ([id number]) 1940 F Date Time Provider Department 04/22/23 NO ONE (HISTORICAL) REFPHY During your visit today, we recorded the following information about you: Patrizia Orozco 04/22/2023 10:06 AM Signed Patient: Beth Starkey Date of : 1940 Patient phone number: [phone] Referring Provider for the encounter: Marck Tate [...] PATRIZIA OROZCO on 04/22/[address] [facility] CHEMISTRYOrdered By: SYSTEM SYSTEM on 09-24-2022 Creatinine [Mass/Vol] 0.8 mg/dL Normal 0.5 - 1.3 mg/dL [facility] Remisol GFR/1.73 sq M.predicted among non-blacks MDRD (S/P/Bld) [Vol rate/Area] 74 mL/min/1.73 m2 Normal >=59mL/min/1. 73 m2 [facility] Chem S CT CHEST [...] KAUR Date: 2022-08-02 10:52 Normal [facility] C. DIFF PCRon 07-28-2022 C. DIFFICILE PCR Negative Normal NEGATIVE [facility] Comment on above: Performed By: #### C DIFPOC #### [facility] [address] [place] [address] Dr. Spencer Braun OCC BLD IMMUNO SCREENon OCCULT BLOOD Negative Normal NEGATIVE [facility] Comment on above: Performed By: #### C BC #### [facility] [address] [place] [address] Dr. Spencer Braun INSULINon 07-15-2022 Insulin 17.7 uIU/mL Normal 2.6-24.9 [facility] Comment on above: Performed By: #### I NSULIN ####[facility] [address] [place] [address]Dr. Spencer Braun BNPon 07-14-2022 Natriuretic peptide B (Bld) [Mass/Vol] 197.0 pg/mL Normal <=1,800.0 [facility] Comment on above: Performed By: #### B SENIOR STAFF CONSULTANT, LIPID, CMP, T7, TSH #### [facility] [address] [address] [address] Spencer Braun CBC AUTO DIFFon 07-14-2022 BASO # 0.1 103/ul Normal 0.0-0.1 [facility] Comment on above: Performed By: #### C BC #### [facility] [address] [place] [address] Dr. Spencer Braun Basophils/100 WBC (Bld) 0.9 % Normal 0.2-2.0 [facility] Comment on above: Performed By: #### C BC #### [facility] [address] [place] [address] Dr. Spencer Braun EO # 0.2 103/ul Normal 0.0-0.7 [facility] Comment on above: Performed By: #### C BC #### [facility] [address] [place] [address] Dr. Spencer Braun Eosinophils/100 WBC (Bld) 2.5 % Normal 0.9-7.0 [facility] Comment on above: Performed By: #### C BC #### [facility] [address] [place] [address] Dr. Spencer Braun Erythrocyte distribution width (RBC) [Ratio] 13.8 % Normal 11.0-15.0 [facility] Comment on above: Performed By: #### C BC #### [facility] [address] [place] [address] Dr. Spencer Braun Hematocrit (Bld) [Volume fraction] 45.1 % Normal 36.0-48.0 [facility] Comment on above: Performed By: #### C BC #### [facility] [address] [place] [address] Dr. Spencer Braun Hemoglobin (Bld) [Mass/Vol] 14.7 g/dL Normal 12.0-16.0 [facility] Comment on above: Performed By: #### C BC #### [facility] [address] [place] [address] Dr. Spencer Braun IG # 0.04 10e3/ul Critically high 0.00-0.03 [facility] Comment on above: Performed By: #### C BC #### [facility] [address] [place] [address] Dr. Spencer Braun IG % 0.5 % Normal 0.0-0.5 [facility] Comment on above: Performed By: #### C BC #### [facility] [address] [place] [address] Dr. Spencer Braun LYMPH # 1.6 103/ul Normal 1.2-3.8 [facility] Comment on above: Performed By: #### C BC #### [facility] [address] [place] [address] Dr. Spencer Braun Lymphocytes/100 WBC (Bld) 20.4 % Critically low 20.5-60.0 [facility] Comment on above: Performed By: #### C BC #### [facility] [address] [place] [address] Dr. Spencer Braun MANUAL DIFF REQ NO Normal [facility] Comment on above: Performed By: #### C BC #### [facility] [address] [place] [address] Dr. Spencer Braun MCH (RBC) [Entitic mass] 28.8 pg Normal 26.7-34.0 [facility] Comment on above: Performed By: #### C BC #### [facility] [address] [place] [address] Dr. Spencer Braun MCHC (RBC) [Mass/Vol] 32.6 g/dL Normal 29.9-35.2 [facility] Comment on above: Performed By: #### C BC #### [facility] [address] [place] [address] Dr. Spencer Braun MCV (RBC) [Entitic vol] 88.3 fL Normal 81.0-99.0 [facility] Comment on above: Performed By: #### C BC #### [facility] [address] [place] [address] Dr. Spencer Braun MONO # 0.5 103/ul Normal 0.3-0.8 [facility] Comment on above: Performed By: #### C BC #### [facility] [address] [place] [address] Dr. Spencer Braun Monocytes/100 WBC (Bld) 6.5 % Normal 1.7-12.0 [facility] Comment on above: Performed By: #### C BC #### [facility] [address] [place] [address] Dr. Spencer Braun NEUT # 5.4 103/ul Normal 1.4-6.5 [facility] Comment on above: Performed By: #### C BC #### [facility] [address] [address] [address] Spencer Braun Neutrophils/100 WBC (Bld) 69.2 % Normal 43.0-75.0 [facility] Comment on above: Performed By: #### C BC #### [facility] [address] [address] [address] Spencer Braun Platelet mean volume (Bld) [Entitic vol] 9.1 fL Critically low 9.5-13.5 [facility] Comment on above: Performed By: #### C BC #### [facility] [address] [address] [address] Spencer Braun PLT 190 103/ul Normal 150-450 [facility] Comment on above: Performed By: #### C BC #### [facility] [address] [place] [address] Dr. Spencer Braun RBC 5.11 106/ul Normal 4.20-5.40 [facility] Comment on above: Performed By: #### C BC #### [facility] [address] [address] [address] Spencer Braun WBC 7.7 103/ul Normal 4.0-11.0 [facility] Comment on above: Performed By: #### C BC #### [facility] [address] [address] [address] Spencer Braun FREE THYROXINE INDEX T7on FTI 2.87 Normal 1.30-4.50 [facility] Comment on above: Performed By: #### B SENIOR STAFF CONSULTANT, LIPID, CMP, T7, TSH ####[facility] [address] [place] [id number]. Spencer Braun T3U 33.0 % Normal 30.0-39.0 [facility] Comment on above: Performed By: #### B SENIOR STAFF CONSULTANT, LIPID, CMP, T7, TSH ####[facility] [address] [place] [id number]. Spencer Braun T4 [Mass/Vol] 8.70 ug/dL Normal 4.80-13.90 [facility] Comment on above: Performed By: #### B SENIOR STAFF CONSULTANT, LIPID, CMP, T7, TSH ####[facility] [address] [place], [place] [address]IgManish Braun GLYCOHEMOGLOBIN A1Con 2022 ADA RECOMMENDATION SEE BELOW Normal [facility] [place] [facility] Comment on above: Result Comment: ADA RECOMMENDED LIMIT 4.0 - 6.0 ADA THERAPEUTIC TARGET < 7.0 ACTION SUGGESTED > 7.0 Performed By: #### A 1C ####[facility] [address] [id number] Braun Glucose [Mass/Vol] 123 mg/dL Normal [facility] Comment on above: Performed By: #### A 1C ####[facility] [address] [place] [id number] Braun HbA1c (Bld) [Mass fraction] 5.9 % Normal 4.5-6.2 [facility] Comment on above: Performed By: #### A 1C ####[facility] [address] [place] [id number] Braun IRONon 07-14-2022 Iron [Mass/Vol] 70.0 ug/dL Normal 50.0-170.0 [facility] Comment on above: Performed By: #### V ITAD, IRON #### [facility] [address] [place], [place] [address] Dr. Spencer Braun LIPID PROFILEon 07-14-2022 CHOL-HDL RATIO NORM SEE BELOW Normal [facility] Comment on above: Result Comment: 3.3 - 4.4 LOW RISK 4.4 - 7.1 AVERAGE RISK 7.1 - 11.0 MODERATE RISK >11.0 HIGH RISK Performed By: #### B SENIOR STAFF CONSULTANT, LIPID, CMP, T7, TSH ####[facility] [address] [place], [place] [address]HwManish Braun Cholesterol [Mass/Vol] 180 mg/dL Normal <=200 [facility] Comment on above: Performed By: #### B SENIOR STAFF CONSULTANT, LIPID, CMP, T7, TSH ####[facility] [address] [place] [id number] Braun Cholesterol in HDL [Mass/Vol] 50 mg/dL Normal 40-60 [facility] Comment on above: Performed By: #### B SENIOR STAFF CONSULTANT, LIPID, CMP, T7, TSH ####[facility] [address] [place] [id number]. Spencer Braun Cholesterol in LDL [Mass/Vol] 105.8 mg/dL Normal [facility] Comment on above: Performed By: #### B SENIOR STAFF CONSULTANT, LIPID, CMP, T7, TSH ####[facility] [address] [place] [id number]. Spencer Braun Cholesterol.total/Ch olesterol in HDL [Mass ratio] 3.6 {ratio} Normal [facility] Comment on above: Performed By: #### B SENIOR STAFF CONSULTANT, LIPID, CMP, T7, TSH ####[facility] [address] [place] [address]Dr. Spencer Braun HDL NORMAL > or = 60 mg/dl - LOW CARDIOVASCULAR RISK <40 mg/dl - HIGH CARDIOVASCULAR RISK Normal [facility] Comment on above: Performed By: #### B SENIOR STAFF CONSULTANT, LIPID, CMP, T7, TSH ####[facility] [address] [place] [address]Dr. Spencer Braun LDL CALC NORMAL SEE BELOW Normal [facility] Comment on above: Result Comment: <100 mg/dl OPTIMAL 100 - 129 mg/dl NEAR OR ABOVE OPTIMAL 130 - 159 mg/dl BORDERLINE HIGH 160 - 189 mg/dl HIGH >190 mg/dl VERY HIGH Performed By: #### B SENIOR STAFF CONSULTANT, LIPID, CMP, T7, TSH ####[facility] [address] [place] [id number]. Spencer Braun Triglyceride [Mass/Vol] 121 mg/dL Normal <=150 [facility] Comment on above: Performed By: #### B SENIOR STAFF CONSULTANT, LIPID, CMP, T7, TSH ####[facility] [address] [place] [address]Dr. Spencer Braun VLDL CALC 24.2 mg/dL Normal [facility] Comment on above: Performed By: #### B SENIOR STAFF CONSULTANT, LIPID, CMP, T7, TSH ####[facility] [address] [place] [address]Dr. Spencer Braun PROF 14(COMP METB)on 023 Albumin [Mass/Vol] 3.8 g/dL Normal 3.4-5.0 [facility] [place] [facility] Comment on above: Performed By: #### B SENIOR STAFF CONSULTANT, LIPID, CMP, T7, TSH #### [facility] [address] [address] [address] Spencer Braun Albumin/Globulin [Mass ratio] 1.0 {ratio} Normal [facility] Comment on above: Performed By: #### B SENIOR STAFF CONSULTANT, LIPID, CMP, T7, TSH #### [facility] [address] [place] [address] Dr. Spencer Braun ALP [Catalytic activity/Vol] 135 U/L Critically high 46-116 [facility] Comment on above: Performed By: #### B SENIOR STAFF CONSULTANT, LIPID, CMP, T7, TSH #### [facility] [address] [place] [address] Dr. Spencer Braun ALT [Catalytic activity/Vol] 20 U/L Normal 14-59 [facility] Comment on above: Performed By: #### B SENIOR STAFF CONSULTANT, LIPID, CMP, T7, TSH #### [facility] [address] [address] [address] Spencer Braun Anion gap [Moles/Vol] 8.4 mmol/L Normal [facility] Comment on above: Performed By: #### B SENIOR STAFF CONSULTANT, LIPID, CMP, T7, TSH #### [facility] [address] [place] [address] Dr. Spencer Braun AST [Catalytic activity/Vol] 14 U/L Critically low 15-37 [facility] Comment on above: Performed By: #### B SENIOR STAFF CONSULTANT, LIPID, CMP, T7, TSH #### [facility] [address] [address] [address] Spencer Braun Bilirubin [Mass/Vol] 0.4 mg/dL Normal 0.2-1.0 [facility] Comment on above: Performed By: #### B SENIOR STAFF CONSULTANT, LIPID, CMP, T7, TSH #### [facility] [address] [place] [address] Dr. Spencer Braun Calcium [Mass/Vol] 9.5 mg/dL Normal 8.5-10.1 [facility] Comment on above: Performed By: #### B SENIOR STAFF CONSULTANT, LIPID, CMP, T7, TSH #### [facility] [address] [place] [address] Dr. Spencer Braun Chloride [Moles/Vol] 104 mmol/L Normal 98-107 [facility] Comment on above: Performed By: #### B SENIOR STAFF CONSULTANT, LIPID, CMP, T7, TSH #### [facility] [address] [place] [address] Dr. Spencer Braun CO2 [Moles/Vol] 32.0 mmol/L Normal 21.0-32.0 [facility] Comment on above: Performed By: #### B SENIOR STAFF CONSULTANT, LIPID, CMP, T7, TSH #### [facility] [address] [place] [address] Dr. Spencer Braun Creatinine [Mass/Vol] 0.72 mg/dL Normal 0.55-1.02 [facility] Comment on above: Performed By: #### B SENIOR STAFF CONSULTANT, LIPID, CMP, T7, TSH #### [facility] [address] [place] [address] Dr. Spencer Braun EGFR-AF BERMUDIAN >60 Normal >=60 [facility] Comment on above: Performed By: #### B SENIOR STAFF CONSULTANT, LIPID, CMP, T7, TSH #### [facility] [address] [place] [address] Dr. Spencer Braun EGFR-NON AF BERMUDIAN >60 Normal >=60 [facility] Comment on above: Performed By: #### B SENIOR STAFF CONSULTANT, LIPID, CMP, T7, TSH #### [facility] [address] [place] [address] Dr. Spencer Braun Globulin (S) [Mass/Vol] 3.9 g/dL Normal [facility] Comment on above: Performed By: #### B SENIOR STAFF CONSULTANT, LIPID, CMP, T7, TSH #### [facility] [address] [place] [address] Dr. Spencer Braun Glucose [Mass/Vol] 127 mg/dL Critically high 74-106 [facility] Comment on above: Performed By: #### B SENIOR STAFF CONSULTANT, LIPID, CMP, T7, TSH #### [facility] [address] [place] [address] Dr. Spencer Braun Potassium [Moles/Vol] 4.4 mmol/L Normal 3.5-5.1 [facility] Comment on above: Performed By: #### B SENIOR STAFF CONSULTANT, LIPID, CMP, T7, TSH #### [facility] [address] [place] [address] Dr. Spencer Braun Protein [Mass/Vol] 7.7 g/dL Normal 6.4-8.2 [facility] [place] [facility] Comment on above: Performed By: #### B SENIOR STAFF CONSULTANT, LIPID, CMP, T7, TSH #### [facility] [address] [place] [address] Dr. Spencer Braun Sodium [Moles/Vol] 140 mmol/L Normal 136-145 [facility] [place] [facility] Comment on above: Performed By: #### B SENIOR STAFF CONSULTANT, LIPID, CMP, T7, TSH #### [facility] [address] [place] [address] Dr. Spencer Braun Urea nitrogen [Mass/Vol] 18.0 mg/dL Normal 7.0-18.0 [facility] Comment on above: Performed By: #### B SENIOR STAFF CONSULTANT, LIPID, CMP, T7, TSH #### [facility] [address] [place] [address] Dr. Spencer Braun Urea nitrogen/Creatinine [Mass ratio] 25.0 mg/mg Normal [facility] Comment on above: Performed By: #### B SENIOR STAFF CONSULTANT, LIPID, CMP, T7, TSH #### [facility] [address] [place] [address] Dr. Spencer Braun TSHon 07-14-2022 TSH 1.760 uIU/mL Normal 0.358-3.740 [facility] Comment on above: Performed By: #### B SENIOR STAFF CONSULTANT, LIPID, CMP, T7, TSH #### [facility] [address] [place] [address] Dr. Spencer Braun VITAMIN D 25 OHon 07-14-2022 VIT D 25-OH 85.7 ng/mL Normal [facility] Comment on above: Performed By: #### V ITAD, IRON #### [facility] [address] [place] [address] Dr. Spencer Braun VIT D RANGES SEE BELOW Normal [facility] Comment on above: Result Comment: <20 ng/mL Vit D deficient 20 - <30 ng/mL Vit D insufficient 30 - 100 ng/mL Vit D sufficient >100 ng/mL Potential Toxicity Performed By: #### V ITAD, IRON #### [facility] [address] [place] [address] Dr. Spencer Braun CBC AUTO DIFFon 04-30-2022 BASO # 0.1 103/ul Normal 0.0-0.1 [facility] Comment on above: Performed By: #### C BC #### [facility] [address] [place] [address] Dr. Spencer Braun Basophils/100 WBC (Bld) 0.9 % Normal 0.2-2.0 [facility] Comment on above: Performed By: #### C BC #### [facility] [address] [place] [address] Dr. Spencer Braun EO # 0.2 103/ul Normal 0.0-0.7 [facility] Comment on above: Performed By: #### C BC #### [facility] [address] [place] [address] Dr. Spencer Braun Eosinophils/100 WBC (Bld) 2.1 % Normal 0.9-7.0 [facility] Comment on above: Performed By: #### C BC #### [facility] [address] [place] [address] Dr. Spencer Braun Erythrocyte distribution width (RBC) [Ratio] 13.9 % Normal 11.0-15.0 [facility] Comment on above: Performed By: #### C BC #### [facility] [address] [place] [address] Dr. Spencer Braun Hematocrit (Bld) [Volume fraction] 46.2 % Normal 36.0-48.0 [facility] Comment on above: Performed By: #### C BC #### [facility] [address] [place] [address] Dr. Spencer Braun Hemoglobin (Bld) [Mass/Vol] 15.1 g/dL Normal 12.0-16.0 [facility] Comment on above: Performed By: #### C BC #### [facility] [address] [place] [address] Dr. Spencer Braun IG # 0.05 10e3/ul Critically high 0.00-0.03 [facility] Comment on above: Performed By: #### C BC #### [facility] [address] [place] [address] Dr. Spencer Braun IG % 0.6 % Critically high 0.0-0.5 [facility] Comment on above: Performed By: #### C BC #### [facility] [address] [place] [address] Dr. Spencer Braun LYMPH # 1.7 103/ul Normal 1.2-3.8 [facility] Comment on above: Performed By: #### C BC #### [facility] [address] [place] [address] Dr. Spencer Braun Lymphocytes/100 WBC (Bld) 20.3 % Critically low 20.5-60.0 [facility] Comment on above: Performed By: #### C BC #### [facility] [address] [place] [address] Dr. Spencer Braun MANUAL DIFF REQ NO Normal [facility] Comment on above: Performed By: #### C BC #### [facility] [address] [place] [address] Dr. Spencer Braun MCH (RBC) [Entitic mass] 28.8 pg Normal 26.7-34.0 [facility] Comment on above: Performed By: #### C BC #### [facility] [address] [place] [address] Dr. Spencer Braun MCHC (RBC) [Mass/Vol] 32.7 g/dL Normal 29.9-35.2 [facility] Comment on above: Performed By: #### C BC #### [facility] [address] [place] [address] Dr. Spencer Braun MCV (RBC) [Entitic vol] 88.2 fL Normal 81.0-99.0 [facility] Comment on above: Performed By: #### C BC #### [facility] [address] [address] [address] Spencer Braun MONO # 0.6 103/ul Normal 0.3-0.8 [facility] Comment on above: Performed By: #### C BC #### [facility] [address] [address] [address] Spencer Braun Monocytes/100 WBC (Bld) 7.1 % Normal 1.7-12.0 [facility] Comment on above: Performed By: #### C BC #### [facility] [address] [place] [address] Dr. Spencer Braun NEUT # 5.7 103/ul Normal 1.4-6.5 [facility] Comment on above: Performed By: #### C BC #### [facility] [address] [place] [address] Dr. Spencer Braun Neutrophils/100 WBC (Bld) 69.0 % Normal 43.0-75.0 [facility] Comment on above: Performed By: #### C BC #### [facility] [address] [place] [address] Dr. Spencer Braun Platelet mean volume (Bld) [Entitic vol] 9.2 fL Critically low 9.5-13.5 [facility] Comment on above: Performed By: #### C BC #### [facility] [address] [place] [address] Dr. Spencer Braun PLT 180 103/ul Normal 150-450 [facility] Comment on above: Performed By: #### C BC #### [facility] [address] [place] [address] Dr. Spencer Braun RBC 5.24 106/ul Normal 4.20-5.40 [facility] Comment on above: Performed By: #### C BC #### [facility] [address] [place] [address] Dr. Spencer Braun WBC 8.2 103/ul Normal 4.0-11.0 [facility] Comment on above: Performed By: #### C BC #### [facility] [address] [place], [place] [address] Dr. Spencer Braun FREE T3on 04-30-2022 FREE T3 2.98 pg/mlL Normal 2.18-3.98 [facility] Comment on above: Performed By: #### L IPID, TSH, T4, FT3, CMP ####[facility] [address] [id number] rBaun GLYCOHEMOGLOBIN A1Con 2021 ADA RECOMMENDATION SEE BELOW Normal [facility] [place] [facility] Comment on above: Result Comment: ADA RECOMMENDED LIMIT 4.0 - 6.0 ADA THERAPEUTIC TARGET < 7.0 ACTION SUGGESTED > 7.0 Performed By: #### A 1C ####[facility] [address] [address]DrManish Braun Glucose [Mass/Vol] 134 mg/dL Normal [facility] [place] [facility] Comment on above: Performed By: #### A 1C ####[facility] [address] [address]DrManish Braun HbA1c (Bld) [Mass fraction] 6.3 % Critically high 4.5-6.2 [facility] Comment on above: Performed By: #### A 1C ####[facility] [address] [address]Dr. Spencer Braun LIPID PROFILEon 04-30-2022 CHOL-HDL RATIO NORM SEE BELOW Normal [facility] Comment on above: Result Comment: 3.3 - 4.4 LOW RISK 4.4 - 7.1 AVERAGE RISK 7.1 - 11.0 MODERATE RISK >11.0 HIGH RISK Performed By: #### L IPID, TSH, T4, FT3, CMP ####[facility] [address] [id number] Braun Cholesterol [Mass/Vol] 177 mg/dL Normal <=200 [facility] Comment on above: Performed By: #### L IPID, TSH, T4, FT3, CMP ####[facility] [address] [id number] Braun Cholesterol in HDL [Mass/Vol] 56 mg/dL Normal 40-60 [facility] Comment on above: Performed By: #### L IPID, TSH, T4, FT3, CMP ####[facility] [address] [address]Dr. Spencer Braun Cholesterol in LDL [Mass/Vol] 97.8 mg/dL Normal [facility] Comment on above: Performed By: #### L IPID, TSH, T4, FT3, CMP ####[facility] [address] [address]Dr. Spencer Braun Cholesterol.total/Ch olesterol in HDL [Mass ratio] 3.2 {ratio} Normal [facility] Comment on above: Performed By: #### L IPID, TSH, T4, FT3, CMP ####[facility] [address] [place], [place] [address]Dr. Spencer Braun HDL NORMAL > or = 60 mg/dl - LOW CARDIOVASCULAR RISK <40 mg/dl - HIGH CARDIOVASCULAR RISK Normal [facility] Comment on above: Performed By: #### L IPID, TSH, T4, FT3, CMP ####[facility] [address] [place], [place] [address]Dr. Spencer Braun LDL CALC NORMAL SEE BELOW Normal [facility] Comment on above: Result Comment: <100 mg/dl OPTIMAL 100 - 129 mg/dl NEAR OR ABOVE OPTIMAL 130 - 159 mg/dl BORDERLINE HIGH 160 - 189 mg/dl HIGH >190 mg/dl VERY HIGH Performed By: #### L IPID, TSH, T4, FT3, CMP ####[facility] [address] [address]Dr. Spencer Braun Triglyceride [Mass/Vol] 116 mg/dL Normal <=150 [facility] Comment on above: Performed By: #### L IPID, TSH, T4, FT3, CMP ####[facility] [address] [place], [place] [address]Dr. Spencer Braun VLDL CALC 23.2 mg/dL Normal [facility] Comment on above: Performed By: #### L IPID, TSH, T4, FT3, CMP ####[facility] [address] [address]Dr. Spencer Braun PROF 14(COMP METB)on 022 Albumin [Mass/Vol] 3.8 g/dL Normal 3.4-5.0 [facility] Comment on above: Performed By: #### L IPID, TSH, T4, FT3, CMP ####[facility] [address] [address]Dr. Spencer Braun Albumin/Globulin [Mass ratio] 0.9 {ratio} Normal [facility] Comment on above: Performed By: #### L IPID, TSH, T4, FT3, CMP ####[facility] [address] [address]Dr. Spencer Braun ALP [Catalytic activity/Vol] 143 U/L Critically high 46-116 [facility] Comment on above: Performed By: #### L IPID, TSH, T4, FT3, CMP ####[facility] [address] [place], [place] [address]Dr. Spencer Braun ALT [Catalytic activity/Vol] 19 U/L Normal 14-59 [facility] Comment on above: Performed By: #### L IPID, TSH, T4, FT3, CMP ####[facility] [address] [address]Dr. Spencer Braun Anion gap [Moles/Vol] 12.1 mmol/L Normal [facility] Comment on above: Performed By: #### L IPID, TSH, T4, FT3, CMP ####[facility] [address] [place], [place] [address]Dr. Spencer Braun AST [Catalytic activity/Vol] 17 U/L Normal 15-37 [facility] Comment on above: Performed By: #### L IPID, TSH, T4, FT3, CMP ####[facility] [address] [place], [place] [address]Dr. Spencer Braun Bilirubin [Mass/Vol] 0.3 mg/dL Normal 0.2-1.0 [facility] Comment on above: Performed By: #### L IPID, TSH, T4, FT3, CMP ####[facility] [address] [address]Dr. Spencer Braun Calcium [Mass/Vol] 9.5 mg/dL Normal 8.5-10.1 [facility] Comment on above: Performed By: #### L IPID, TSH, T4, FT3, CMP ####[facility] [address] [address]Dr. Spencer Braun Chloride [Moles/Vol] 102 mmol/L Normal 98-107 [facility] Comment on above: Performed By: #### L IPID, TSH, T4, FT3, CMP ####[facility] [address] [address]Dr. Spencer Braun CO2 [Moles/Vol] 32.6 mmol/L Critically high 21.0-32.0 [facility] Comment on above: Performed By: #### L IPID, TSH, T4, FT3, CMP ####[facility] [address] [place], [place] [address]Dr. Spencer Braun Creatinine [Mass/Vol] 0.69 mg/dL Normal 0.55-1.02 [facility] Comment on above: Performed By: #### L IPID, TSH, T4, FT3, CMP ####[facility] [address] [place], [place] [address]Dr. Spencer Braun EGFR-AF BERMUDIAN >60 Normal >=60 [facility] Comment on above: Performed By: #### L IPID, TSH, T4, FT3, CMP ####[facility] [address] [place], [place] [address]Dr. Spencer Braun EGFR-NON AF BERMUDIAN >60 Normal >=60 [facility] Comment on above: Performed By: #### L IPID, TSH, T4, FT3, CMP ####[facility] [address] [place], [place] [address]Dr. Spencer Braun Globulin (S) [Mass/Vol] 4.1 g/dL Normal [facility] Comment on above: Performed By: #### L IPID, TSH, T4, FT3, CMP ####[facility] [address] [address]Dr. Spencer Braun Glucose [Mass/Vol] 108 mg/dL Critically high 74-106 [facility] Comment on above: Performed By: #### L IPID, TSH, T4, FT3, CMP ####[facility] [address] [place], [place] [address]Dr. Spencer Braun Potassium [Moles/Vol] 4.7 mmol/L Normal 3.5-5.1 [facility] Comment on above: Performed By: #### L IPID, TSH, T4, FT3, CMP ####[facility] [address] [place], [place] [address]Dr. Spencer Braun Protein [Mass/Vol] 7.9 g/dL Normal 6.4-8.2 [facility] Comment on above: Performed By: #### L IPID, TSH, T4, FT3, CMP ####[facility] [address] [place], [place] [address]Dr. Spencer Braun Sodium [Moles/Vol] 142 mmol/L Normal 136-145 [facility] Comment on above: Performed By: #### L IPID, TSH, T4, FT3, CMP ####[facility] [address] [place], [place] [address]Dr. Spencer Braun Urea nitrogen [Mass/Vol] 19.0 mg/dL Critically high 7.0-18.0 [facility] Comment on above: Performed By: #### L IPID, TSH, T4, FT3, CMP ####[facility] [address] [place], [place] [address]Dr. Spencer Braun Urea nitrogen/Creatinine [Mass ratio] 27.5 mg/mg Normal [facility] Comment on above: Performed By: #### L IPID, TSH, T4, FT3, CMP ####[facility] [address] [place], [place] [address]Dr. Spencer Braun T4on 04-30-2022 T4 [Mass/Vol] 8.30 ug/dL Normal 4.80-13.90 [facility] Comment on above: Performed By: #### L IPID, TSH, T4, FT3, CMP ####[facility] [address] [place], [place] [address]ApManish Braun TSHon 04-30-2022 TSH 1.777 uIU/mL Normal 0.358-3.740 [facility] Comment on above: Performed By: #### L IPID, TSH, T4, FT3, CMP ####[facility] [address] [place], [place] [address]NvManish Braun VITAMIN D 25 OHon 04-30-2022 VIT D 25-OH 72.1 ng/mL Normal [facility] Comment on above: Performed By: #### V ITAD #### [facility] [address] [address] [address] Spencer Braun VIT D RANGES SEE BELOW Normal [facility] Comment on above: Result Comment: <20 ng/mL Vit D deficient 20 - <30 ng/mL Vit D insufficient 30 - 100 ng/mL Vit D sufficient >100 ng/mL Potential Toxicity Performed By: #### V ITAD #### [facility] [address] [place], [place] [address] Dr. Spencer Braun MG MAMM SCREEN 3D AWAIS CADon 02-16-2022 MG MAMM SCREEN 3D AWAIS CAD Patient: BETH STARKEY Exam Date: 02/16/2022 : 1940 Gender:F Ordering : DR MARCK TATE . Admission #: [id number] Family : Order #: [id number] CLICK HERE TO VIEW EXAM RADIOLOGY REPORT [...] cancer at age 71. LOCATION: [facility] BREAST COMPOSITION: Heterogeneously dense,which may obscure [...] on 02/17/2022 at 07:39 Normal [facility] Vital Signs Date Time Vital Sign Value Performing Clinician Tony jenkins 09-28-2024 14:15-0400 Measurement/Vitals Comment Unable to obtain; Telephone visit. Nati Petty [facility] 08-15-2024 14:13-0400 Body mass index (BMI) [Ratio] 29.63 kg/m2 Timo Ihsan DO Work Phone: [facility] 08-15-2024 14:13-0400 Body weight 71.12 kg Timo Ihsan DO Work Phone: [facility] 08-15-2024 14:13-0400 Diastolic blood pressure 80 mm[Hg] Timo Ihsan DO Work Phone: [facility] 08-15-2024 14:13-0400 Systolic blood pressure 114 mm[Hg] Timo Ihsan DO Work Phone: [facility] 07-17-2024 15:08-0500 Body mass index (BMI) [Ratio] 29.44 kg/m2 Timo Ihsan DO Work Phone: [facility] 07-17-2024 15:08-0500 Body weight 70.67 kg Timo Ihsan DO Work Phone: [facility] 07-17-2024 15:08-0500 Diastolic blood pressure 70 mm[Hg] Timo Ihsan DO Work Phone: [facility] 07-17-2024 15:08-0500 Systolic blood pressure 120 mm[Hg] Timo Ihsan DO Work Phone: [facility] 12-16-2023 15:18-0400 Diastolic blood pressure 68 mm[Hg] Tam Mauricionus [facility] 12-16-2023 15:18-0400 Systolic blood pressure 118 mm[Hg] Tam Mauricionus [facility] 05-12-2023 10:13-0500 Diastolic blood pressure 72 mm[Hg] Sha Barrerasilke [facility] 05-12-2023 10:13-0500 Heart rate 94 /min Sha Vallejo [facility] 05-12-2023 10:13-0500 SaO2% (BldA) [Mass fraction] 90 % Sha Rodpippasilke [facility] 05-12-2023 10:13-0500 Systolic blood pressure 130 mm[Hg] Sha Barrerasilke [facility] 05-03-2023 12:24-0500 Diastolic blood pressure 59 mm[Hg] Jena Hicks MD Work Phone: [facility] 05-03-2023 12:24-0500 Heart rate 86 /min Jena Hicks MD Work Phone: [facility] 05-03-2023 12:24-0500 Systolic blood pressure 103 mm[Hg] Jena Hicks MD Work Phone: [facility] 05-03-2023 12:14-0500 Body height 152.4 cm Jena Hicks MD Work Phone: [facility] 05-03-2023 12:14-0500 Body temperature 98.29 [degF] Jena Hicks MD Work Phone: [facility] 05-03-2023 12:14-0500 Body weight 65.82 kg Jena Hicks MD Work Phone: [facility] 05-03-2023 12:14-0500 Respiratory rate 16 /min Jena Hicks MD Work Phone: [facility] 05-03-2023 12:14-0500 SaO2% (BldA) [Mass fraction] 93 % Jena Hicks MD Work Phone: [facility] 09-06-2022 09:39-0400 Blood Pressure Location Dayron Jorgensen [facility] 09-06-2022 09:39-0400 Diastolic blood pressure 81 mm[Hg] Dayron Davidsonan [facility] 09-06-2022 09:39-0400 Heart rate 103 /min Dayron Davidsonan [facility] 09-06-2022 09:39-0400 SaO2% (BldA) [Mass fraction] 90 % Dayron Davidsonan [facility] 09-06-2022 09:39-0400 Systolic blood pressure 126 mm[Hg] [facility] Encounters Encounter Date Encounter Type Care Provider Facility Start: 12-07-2024 End: 12-07-2024 ambulatory XXXX NONE Facility:[facility] Start: 09-28-2024 End: 09-28-2024 Patient encounter procedure Nati Petty [facility] Start: 09-28-2024 End: 09-28-2024 ambulatory PA-C Nati Petty Facility:[facility] Start: 08-16-2024 End: 09-28-2024 Patient encounter procedure Jus Del Castillo [facility] Start: 08-15-2024 End: 08-15-2024 Bamboo flowsheet Timo Ihasn DO Work Phone: [facility] Start: [...] Start: 07-20-2024 End: 07-20-2024 ambulatory XXXX NONE Facility:[facility] Start: 07-17-2024 End: 07-17-2024 [...] End: 07-06-2024 Patient encounter procedure Tam Vallejo [facility] Start: 01-20-2024 End: 01-20-2024 ambulatory [facility] Start: 01-09-2024 End: 01-10-2024 ambulatory [facility] Start: 12-16-2023 End: 12-17-2023 Pre-admission assessment Tam Vallejo [facility] Start: 12-16-2023 End: 12-16-2023 ambulatory XXXX NONE Facility:[facility] Start: 11-09-2023 End: 11-09-2023 ambulatory TIMO CHAMPAGNE Not Available Start: 05-12-2023 End: 05-12-2023 Patient encounter procedure Sha Vallejo [facility] Start: 05-04-2023 Orders Only Jena Hicks MD Work Phone: [facility] Comment on above: 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); Bilateral carotid artery stenosis; Other disorders of arteries, arterioles and capillaries in diseases classified elsewhere (HCC) Start: 05-03-2023 End: 05-03-2023 ambulatory JENA HICKS Facility:[facility] Start: 05-03-2023 End: 05-03-2023 Office outpatient visit 25 minutes Jena Hicks MD Work Phone: [facility] Comment on above: 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) Start: 04-26-2023 Orders Only Jena Hicks MD Work Phone: [facility] Comment on above: Chest pain, unspecif ied type (Primary Dx) Start: 04-25-2023 Telephone encounter No Pcp COMPOSITION PROFESSOR NOC Comment on above: Appointment Start: 04-22-2023 Telephone encounter No One (Historic al) Referring Physician Comment on above: External Referrals/r esources Start: 03-23-2023 End: 03-23-2023 Patient encounter procedure Sha Vallejo [facility] Start: 01-20-2023 End: 01-20-2023 Patient encounter procedure Sha Vallejo [facility] Start: 09-24-2022 End: 09-24-2022 Patient encounter procedure Dayron Jorgensen [facility] Start: 09-06-2022 End: 09-06-2022 Patient encounter procedure Dayron Jorgensen [facility] Start: 08-02-2022 End: 08-03-[address] MARCK TATE . Facility:[facility] Start: 07-28-2022 End: 07-28-[address] MARCK TATE . Facility:[facility] Start: 07-14-2022 End: 07-15-[address] MARCK TATE . Facility:[facility] Start: 04-30-2022 End: 05-01-[address] MARCK TATE . Facility:[facility] Start: 02-16-2022 End: 02-17-[address] MARCK TATE . Facility: Start: 06-17-2017 End: 06-18-2017 Ambulatory DEFAULT PHYSICIAN Facility:[facility] Plan of Treatment Date Care Activity Detail Author Start: 07-04-2029 Urine microalbumin profile DTaP,Tdap,Td Vaccine (2 - Td or Tdap) [facility] Start: 08-15-2024 End: 08-15-2024 Patient encounter procedure 08/15/2024 1:50 PM EDT Office Visit [facility] [address] [place] [address] Timo Champagne, [address], [place] [address] Arrived [facility] Comment on above: Arrived Start: 08-07-2024 End: 08-07-2024 Professional / ancillary services management 08/07/2024 2:30 PM EDT Ancillary Procedure [facility] [address] [place] [address] [facility] Start: 07-17-2024 End: 07-17-2024 Patient encounter procedure 07/17/2024 2:40 PM EST Office Visit [facility] [address] [place] [address] Timo Champagne, DO [address] [place] [address] [place] [address] Arrived [facility] Comment on above: Arrived Start: 07-17-2024 End: 07-17-2025 US Pelvis US Pelvis w/ TV Imaging Routine Cyst of left ovary Expected: 07/17/2024, Expires: 07/17/2025 [facility] Work Phone: Comment on above: Expected: 07/17/2024 , Expires: 07/17/2025 Start: 01-22-2024 Influenza vaccination Influenza Vacc ine (#1) [facility] Start: 01-21-2023 Influenza vaccination Influenza Vacc ine (#1) [facility] Start: 05-23-2022 Advance Directive Discussion Advance Directive Discussion [facility] Start: 05-23-2022 Depression Assessment Depression Ass essment [facility] Start: 03-23-2018 Pneumococcal Vaccine : 65+ Years (2 of 2 - PPSV23 or PCV20) Pneumococcal Vaccine: 65+ Years (2 of 2 - PPSV23 or PCV20) [facility] Start: 05-18-2017 Pneumococcal Vaccine : 65+ (2 - PPSV23 or PCV20) Pneumococcal Vaccine: 65+ (2 - PPSV23 or PCV20) [facility] Start: 2006 Bone Density Screening Bone Density Screening [facility] Start: 2006 Pneumococcal Vaccine : 65+ (1 - PCV) Pneumococcal Vaccine: 65+ (1 - PCV) [facility] Start: 2006 Screening for osteoporosis Bone Density Screening [facility] Start: 2001 RSV Vaccine (1 - 1-d ose 60+ series) RSV Vaccine (1 - 1-dose 60+ series) [facility] Start: 1991 Shingrix Vaccine (1 of 2) Shingrix Vaccine (1 of 2) [facility] Start: 1986 Diabetes Screening Diabetes Screenin g [facility] Start: 1941 Covid-19 Vaccine (#1) Covid-19 Vacci ne (#1) [facility] End: 05-25-2024 Ct angio abd&plvis cntrst mtrl w/wo cntrst img CTA ABD/PEL WO/W IVCON Radiology Routine Chest pain, unspecified type 1 Occurrences starting 04/26/2023 until 05/25/2024 [facility] Work Phone: Comment on above: 1 Occurrences starti ng 04/26/2023 until 05/25/2024 End: 06-02-2024 Ct angio abd&plvis cntrst mtrl w/wo cntrst img CTA ABD/PEL WO/W IVCON Radiology Routine 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 Occurrences starting 05/04/2023 until 06/02/2024 [facility] Work Phone: Comment on above: 1 Occurrences starti ng 05/04/2023 until 06/02/2024 End: 05-25-2024 Ct angiography chest w/contrast/noncontrast CTA CHEST (NONGATED) WO/W IVCON Radiology Routine Chest pain, unspecified type 1 Occurrences starting 04/26/2023 until 05/25/2024 [facility] Work Phone: Comment on above: 1 Occurrences starti ng 04/26/2023 until 05/25/2024 End: 06-02-2024 Ct angiography chest w/contrast/noncontrast CTA CHEST (NONGATED) WO/W IVCON Radiology Routine 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 Occurrences starting 05/04/2023 until 06/02/2024 [facility] Work Phone: Comment on above: 1 Occurrences starti ng 05/04/2023 until 06/02/2024 End: 05-04-2024 PVR ANK/HILL/TOE AWAIS VAS LAB PVR ANK/HILL/TOE AWAIS VAS LAB Vascular Lab Routine 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) Other disorders of arteries, arterioles and capillaries in diseases classified elsewhere (HCC) 1 Occurrences starting 05/04/2023 until 05/04/2024 [facility] Work Phone: Comment on above: 1 Occurrences starti ng 05/04/2023 until 05/04/2024 End: 05-04-2024 US CAROTID ARTERIES AWAIS VAS LAB US CAROTID ARTERIES AWAIS VAS LAB Vascular Lab Routine Bilateral carotid artery stenosis 1 Occurrences starting 05/04/2023 until 05/04/2024 [facility] Work Phone: Comment on above: 1 Occurrences starti ng 05/04/2023 until 05/04/2024 [facility] Immunizations Immunization Date Immunization Notes Care Provider Kay bennett 01-20-2024 tetanus toxoid, redu gene diphtheria toxoid, and acellular pertussis vaccine, adsorbed Jus Magdalene [facility] 04-26-2023 influenza virus vaccine, unspecified formulation Timo Champagne DO Work Phone: [facility] 12-16-2021 SARS-CoV-2 mRNA (mniaihbkwpp-imbw-nzaek se) vaccine Jus Magdalene [facility] Comment on above: Result Comment: 2024: [id number] 04-07-2021 SARS-CoV-2 (COVID-19 ) mRNA BNT-162b2 vax Jus Magdalene [facility] Comment on above: Result Comment: 2024: [id number] 09-29-2020 SARS-CoV-2 (COVID-19 ) mRNA BNT-162b2 vax Jus Magdalene [facility] 09-08-2020 SARS-CoV-2 (COVID-19 ) mRNA BNT-162b2 vax Jus Magdalene [facility] 04-23-2020 influenza virus vaccine, unspecified formulation Jus Magdalene [facility] 07-04-2019 tetanus toxoid, redu gene diphtheria toxoid, and acellular pertussis vaccine, adsorbed Jus Magdalene [facility] 03-23-2017 pneumococcal conjuga te vaccine, 13 valent Jus Magdalene [facility] 03-06-2017 influenza virus vaccine, unspecified formulation Jus Del Castillo [facility] Payers Date Payer Category [employer]ayer [employer]) [id number] 2018 [employer] others) [id number] 2006 Medicare [id number] 1998 () [id number] 1959 [employer] ( and others) [id number] 1959 Medicare [id number] 1941 Unknown [id number] 2.840.1.681252.3.579. 2.593 1941 Unknown [id number] 2.16840.1.290955.3.579. 2.593 1941 Unknown [id number] 2.16.840.1.180717.3.579. 2.593 1941 Unknown [id number] 2.16.840.1.360616.3.579. 2.593 1941 Unknown [id number] 2.16.840.1.677367.3.579. 2.593 1941 Unknown [id number] 2.16.840.1.029001.3.579. 2.1259 1941 Unknown [id number] 2.16.840.1.247468.3.579. 2.1259 1941 Unknown [id number] 2.16.840.1.779707.3.579. 2.1259 1941 Unknown [id number] 2.16.840.1.163699.3.579. 2.1259 1941 Unknown [id number] 2.16.840.1.232565.3.579. 2.727 1941 Unknown [id number] 2.16.840.1.146338.3.579. 2.727 1941 Unknown [id number] 2.16.840.1.554364.3.579. 2.727 1941 Unknown [id number] 2.16.840.1.772129.3.579. 2.727 1941 Unknown [id number] 2.16.840.1.410537.3.579. 2.727 Unknown Social History Date Type Detail Facility Start: 09-06-2022 End: 09-28-2024 Tobacco smoking status Heavy tobacco smoker (finding) [facility] Start: 05-03-2023 Sex Assigned At Female F [facility] smoking consumption unknown [facility] Start: 1940 Sex Assigned At Not on file [facility] Start: 05-23-1956 Tobacco smoking stat [facility] Smokes tobacco daily [facility] Start: 05-23-1956 History of tobacco use Cigarette Smo ker [facility] Start: 05-03-2023 Cigarettes smoked current (pack per day) - Reported 1.5 [facility] Start: 05-03-2023 Tobacco use and exposure Smoke less tobacco non-user [facility] Start: 05-03-2023 Alcohol intake Current drinke r of alcohol (finding) [facility] National Score (1-10 0), lower number is lower risk 87 [facility] Start: 05-03-2023 Alcohol Comment [facility] O[facility] Start: 08-17-2022 Sex Female (finding) [facility] Functional Status Date Assessment Result Facility 09-28-2024 Functional Status N/A [facility] 12-16-2023 Functional Status N/A [facility] 05-12-2023 Functional Status N/A [facility] 09-06-2022 Functional Status No [facility] Clinical Notes 03-22-2023 to 08-15-2024 [...] nursing note reviewed. Exam conducted with a plastic welding machine operator present. Vitals: Estimated body mass index [...] 12:06 PM EDT documented in this encounter [facility] 07-17-2024 History of Present illness [...] nursing note reviewed. Exam conducted with a plastic welding machine operator present. 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 [facility] 01-09-2024 Note [facility] Note Reason for cardiology consult: Dyspnea on exertion, prior history of CAD Chief Complaint: Dyspnea on exertion HPI: Beth Starkey is a 83 y.o. 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 [facility] 05-26-2023 [facility] ([id number]) 1940 F Date Time Provider Department 05/26/23 [...] and brochure sent Lung Nodule Program Location: [place] Allergies As of Date: 05/26/2023 (No Known [...] by EVANGELINA BURNETT on 05/26/[address] [facility] 05-26-2023 Note HNO ID: [id number] Author: ?, ?, ? Service: ? Author [...] and brochure sent Lung Nodule Program [place] [facility] [place]-18-2023 Note Patient Outreach ([facility]) BETH STARKEY ([id number]) 1940 F Date Time Provider Department 05/18/23 SOFIA BELLO [facility] During your visit today, we recorded the following information about you: Sofia Bello, COMPOSITION PROFESSOR.[facility] 05/18/2023 11:12 AM Signed Incidental Lung Nodule Enrollment Outreach attempt: 1st Attempt Outreach status: Complete Enrolled in Lung Nodule program: Referred Lung Nodule outreach: No outreach - Very small nodule, letter and brochure sent Lung Nodule Program Location: [place] Allergies As of Date: 05/18/2023 (No Known [...] by SOFIA BELLO on 05/18/[address] [facility] 05-18-2023 Note HNO ID: [id number] Author: Sofia Bello, CHELSEA.IRON LAUNDER OPERATOR Service: ? Author Type: Nurse Practitioner Type: Progress Notes Filed: 05/18/2023 11:12 AM Note Text: Incidental Lung Nodule Enrollment Outreach attempt: 1st Attempt Outreach status: Complete Enrolled in Lung Nodule program: Referred Lung Nodule outreach: No outreach - Very small nodule, letter and brochure sent Lung Nodule Program [place] [facility] [place] 05-03-2023 Note HNO ID: [id number] Author: Nadine Cummins RN Service: Radiology Author [...] 03, 2023 TIME: 1:[address] [facility] 05-03-2023 Note HNO ID: [id number] Author: Kandy Aragon RT(R) Service: Radiology Author [...] May 03, 2023 1:[address] [facility] 05-03-2023 History and physical note Heart , Vascular and Thoracic [place] DEPARTMENT OF VASCULAR SURGERY OUTPATIENT VISIT DATE [...] 4 - Moderate documented in this encounter [facility] 04-25-2023 Miscellaneous Notes Reason for call: Ms Starkey called,and she would like to schedule an appointment with vascular surgery Referred by Dr Judit [facility] and cell number: [phone] Diagnosis: AAA Kind Regards Med documented in this encounter [facility] 04-22-2023 Miscellaneous Notes Patient: Beth Starkey Date of : 1940 Patient phone number: [phone] Referring Provider for the encounter: Marck Tate MD Requesting Provider: N/A Reason for requesting visit (RFV/signs and symptoms/diagnosis): Sent Telephone Encounter - updated tracking. Person calling: caregiver: Patrizia Return call to: self Medical Records/Insurance Card scanned into Epic: Yes Comments: N/A documented in this encounter [facility] 03-23-2023 Evaluation + Plan note Diagnostic Tests PendingCreatinine 03/23/23 Future Scheduled TestsCTA Abd Aorto-bilat/ iliofemoral runoff 03/22/23 [facility] 03-22-2023 Evaluation + Plan note Future Scheduled TestsCTA Abd Aorto-bilat/ iliofemoral runoff 03/22/23 [facility] Evaluation + Plan note Future Appointments Appointment Date:10/11/2022 10:00:00 AM Scheduled Provider:Dayron Jorgensen MD Location:[facility] Appointment Type:Vascular Follow Up ([facility]) Future Scheduled TestsCTA Abdomen and Pelvis 09/06/22CTA Chest 09/06/22 [facility] Evaluation + Plan note Future Appointments Appointment Date:10/11/2022 10:00:00 AM Scheduled Provider:Day[facility]orgensen [facility] ([facility] Evaluation + Plan note Future Scheduled TestsCTA Abd Aorto-bilat/ iliofemoral runoff 03/22/23 [facility] Evaluation + Plan note Future Appointments Appointment Date:06/18/2024 09:45:00 AM Scheduled Provider:Tam Vallejo MD [facility] Type:Cardiology Follow Up ([facility]) Future Scheduled TestsCTA Abd Aorto-bilat/ iliofemoral runoff 03/22/23 [facility] Evaluation + Plan note Future Appointments Appointment Date:07/20/2024 10:00:00 AM Scheduled Provider:Tam Vallejo MD [facility] App[facility] Type:Cardiology Follow Up ([facility]) Future Scheduled TestsLipid Panel 12/19/23NM Myocardial Spect Rest/Stress 1 Day 12/21/23Echo Transthoracic Complete 12/21/23CTA Abd Aorto-bilat/ iliofemoral runoff 03/22/23 [facility] Evaluation + Plan note Future Appointments Appointment Date:12/07/2024 03:00:00 PM Scheduled Provider:Jus Del Castillo MD Location[facility] Appointment Type:Cardiology Follow Up ([facility]) Future Scheduled TestsLipid Panel 07/24/24NM Myocardial Spect Rest/Stress 1 Day 12/21/23Echo Transthoracic Complete 12/21/23CTA Abd Aorto-bilat/ iliofemoral runoff 09/17/24 [facility] Evaluation note Diagnosis Chest pain, unspecified type- Primary [facility] Diagnosis 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 [facility]* Diagnosis 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 Bilateral carotid artery stenosis Occlusion and stenosis of carotid artery without mention of cerebral infarction Other disorders of arteries, arterioles and capillaries in diseases classified elsewhere ([facility]) documented in this encounter [facility]* Diagnosis Cyst of left ovary Other and unspecified ovarian cyst documented in this encounter [facility] HealthcareEvaluation note* Diagnosis Encounter to discuss test results Other specified counseling Cyst of left ovary Other and unspecified ovarian cyst documented in this encounter [facility] HealthcareHospital course Narrative No data available for this section [facility] No data available for this section [facility] No data available for this section [facility] for [facility] (narrative)* Outpatient Procedure (Routine) - Authorized Specialty Diagnoses / Procedures Referred By Manjula t Referred To Contact [facility] Diagnoses 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) Other disorders of arteries, arterioles and capillaries in diseases classified elsewhere ([facility]) Procedures PVR ANK/HILL/TOE AWAIS VAS LAB NON-INVAS PHYSIOLOGIC STD EXTREMITY ART 2 LEVEL Jena Hicks MD [address] [place] [address] [facility] [place] [address] [place] [address] Referral ID Status Reason Start Date Expiration Date Visits Requested Visits Authorized [id number] Authorized Auto-Generat ed Referral 3 05/03/2024 1 1 * MRI/CT (Routine) - Authorized Specialty Diagnoses / Procedures Referred By Marcac t Referred To Contact CT IMAGING Diagnoses 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) Procedures CTA ABD/PEL WO/W IVCON CT ANGIO ABD&PLVIS CNTRST MTRL W/WO CNTRST Jena Todd MD [address] [place] [address] Ct Imaging [place] [address] Referral ID Status Reason Start Date Expiration Date Visits Requested Visits Authorized [id number] Authorized Auto-Generat ed Referral 3 06/02/2024 1 1 * MRI/CT (Routine) - Authorized Specialty Diagnoses / Procedures Referred By Manjula t Referred To Contact CT IMAGING Diagnoses 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) Procedures CTA CHEST (NONGATED) WO/W IVCON CT ANGIOGRAPHY CHEST W/CONTRAST/NONCONTRAST Jena Hicks MD [address] [place] [address] Ct [facility] [place] [address] Referral ID Status Reason Start Date Expiration Date Visits Requested Visits Authorized [id number] Authorized Auto-Generat ed Referral 3 06/02/2024 1 1 * Outpatient Procedure (Routine) - Authorized Specialty Diagnoses / Procedures [facility] Diagnoses Bilateral carotid artery stenosis Procedures US CAROTID ARTERIES AWAIS VAS LAB DUPLEX SCAN EXTRACRANIAL [place] [address] [place] [address] [facility] [place] [address] [place] [address] Referral ID Status Reason Start Date Expiration Date Visits Requested Visits Authorized [id number] Authorized Auto-Generat ed Referral 12/1305/03/2024 1 1 [facility] Summary Purpose Family History No Family [...] ANGIO ABD&PLVIS CNTRST MTRL W/WO CNTRST JIMMIEBANNER Jena Hicks MD [address] [place] [address] Ct [facility] [place] [address] Referral ID Status Reason Start Date Expiration Date Visits Requested Visits Authorized [id number] Authorized Auto-Generat ed Referral 04/26/2023 05/25/2024 1 1 Specialty Diagnoses / Procedures Referred By Contac t Referred To Contact CT IMAGING Diagnoses Chest pain, unspecified type Procedures CTA CHEST (NONGATED) WO/W IVCON CT ANGIOGRAPHY CHEST W/CONTRAST/NONCONTRAST Jena Hicks MD [address] [place] [address] Ct [facility] [place] [address] Referral ID Status Reason Start Date Expiration Date Visits Requested Visits Authorized [id number] Authorized Auto-Generat ed Referral 04/26/2023 05/25/2024 1 1 Additional Source Comments INFORMATION SOURCE (unrecogn ized section and content) DATE CREATED AUTHOR 11/14/2017 [facility] DATE CREATED AUTHOR AUTHOR'S ORGANIZ ATION 08/09/2022 [facility] DATE CREATED AUTHOR AUTHOR'S ORGANIZ ATION 05/27/[address] [facility] DATE CREATED AUTHOR AUTHOR'S ORGANIZ ATION 01/22/2024 [facility] DATE CREATED AUTHOR AUTHOR'S ORGANIZ ATION 08/16/[address] [facility] d[facility] Specialists EPIC DATE CREATED AUTHOR AUTHOR'S ORGANIZ ATION 12/11/2024 [facility] Patient Care team informatio n (unrecognized section and content) Photogrammetric Engineer Relationship Specialty Start Date End Date Marck Tate MD [address] [facility] [place] [address] Family Medicine 04/22/23 Photogrammetric Engineer Relationship Specialty Start Date End Date Marck Tate MD [address] [facility] [place] [address] Family Medicine 04/22/23 Photogrammetric Engineer Relationship Specialty Start Date End Date Marck Tate MD [address] [facility] [place] [address] Family Medicine 04/22/23 Photogrammetric Engineer Relationship Specialty Start Date End Date Marck Tate MD [address] [facility] [place] [address] Family Medicine 04/22/23 Photogrammetric Engineer Relationship Specialty Start Date End Date Marck Tate MD [address] [place] [facility] [place] [address] PCP - General Family Medicine 05/30/23 Photogrammetric Engineer Relationship Specialty Start Date End Date Marck Tate MD [address] [place] [facility] [address] PCP - General Family Medicine 05/30/23 Photogrammetric Engineer Relationship Specialty Start Date End Date Marck Tate MD [address] [place] [address] PCP - General Family Medicine 05/30/23 Photogrammetric Engineer Relationship Specialty Start Date End Date Marck Tate MD [address] [place] [address] PCP - General Family Medicine 05/30/23 Source Comments (unrecognize d section and content) In the event this informatio n is protected by the Federal Confidentiality of Alcohol and Drug Abuse Patient Records regulations: The Federal rules restrict any use of the information to criminally investigate or prosecute any alcohol or drug abuse patient.[facility] the event this information is protected by the Federal Confidentiality of Alcohol and Drug Abuse Patient Records regulations: The Federal rules restrict any use of the information to criminally investigate or prosecute any alcohol or drug abuse patient.[facility] Center[facility] the event this information is protected by the Federal Confidentiality of Alcohol and Drug Abuse Patient Records regulations: The Federal rules restrict any use of the information to criminally investigate or prosecute any alcohol or drug abuse patient.[facility] Center[facility] the event this information is protected by the Federal Confidentiality of Alcohol and Drug Abuse Patient Records regulations: The Federal rules restrict any use of the information to criminally investigate or prosecute any alcohol or drug abuse patient.[facility] CenterIn the event this information is protected by the Federal Confidentiality of Alcohol and Drug Abuse Patient Records regulations: The Federal rules restrict any use of the information to criminally investigate or prosecute any alcohol or drug abuse patient.[facility] Reason for Visit (unrecogniz ed [...] BE BASED ON THE PRIMARY CLINICAL RECORDS. [facility] [employer] [facility]. provides no warranty or guarantee of the accuracy or completeness of information in this document.
[2025-02-07 16:32] LABS: Glucose Urine UA NEGATIVE (NEGATIVE)
[2025-02-07 16:46] LABS: Cast Seen? NONE SEEN #/LPF (NONE SEEN); Crystals Seen? None Seen #/HPF (None Seen)
== END 2025-02-07 15:33 | disposition home or self-care (01) ==
LOC: LAB 15:32
PROVIDERS: PCP Family Medicine; Visit Provider Family Medicine
DX: R31.9 Hematuria, unspecified (principal)
CPT/HCPCS: 81001; 87086; 87088; 87186